=== PATIENT | female | born 1995 | race Caucasian/White ===

== ENCOUNTER 2023-10-26 15:44 | Emergency (ER) | payer MEDICAID, SELFPAY ==
--- NOTE | ~2023-10-26 | US_ITS ---
EXAMINATION: US VENOUS ULTRASOUND WITH DOPPLER LOWER EXTREMITY, LEFT CLINICAL INFORMATION: Swelling and pain COMPARISON: None available. TECHNIQUE: Ultrasound of the deep veins is performed from the hip to the calf with compression sonography and color and pulse Doppler assessment. Spectral analysis with color-flow imaging is performed. FINDINGS: There is normal venous compression and respiratory variation and augmented flow. The visualized common femoral vein, superficial femoral vein, profunda femoral vein, popliteal vein, and the trifurcation region shows no evidence of deep venous thrombosis. There is no significant popliteal fossa cyst. If the patient's symptoms persist, followup ultrasound in 5 days 7 days might be of value to exclude proximal propagation from a non-visualized calf vein. US/US venous duplex LE LT IMPRESSION: No DVT demonstrated in the left lower extremity.
[2023-10-26 16:42] VITALS: BP 152/95; PULSE 103; RESP 20; TEMP 36.6; O2SAT 96; BMI 34.2
--- NOTE | 2023-10-26 16:51 | ECG_ITS ---
Test Reason : LEG SWELLING Blood Pressure : / mmHG Vent. Rate : 095 BPM Atrial Rate : 095 BPM P-R Int : 134 ms QRS Dur : 076 ms QT Int : 348 ms P-R-T Axes : 026 042 028 degrees QTc Int : 437 ms Normal sinus rhythm Normal ECG No previous ECGs available Referred By: Generic ED Physician Electronically Signed By:Connor Guzman
[2023-10-26 18:04] LABS: MANUAL DIFF FLAG NO
[2023-10-26 18:08] LABS: Basophils Absolute Auto 0.1 X10*3/uL (0.0-0.2); Basophils Percent Auto 0.5 % (0-2); Eosinophils Absolute Auto 0.1 X10*3/uL (0.0-0.4); Eosinophils Percent Auto 0.8 % (0-4); Hematocrit 39.3 % (37.0-47.0); Hemoglobin 13.1 g/dl (12.0-16.0); Imm Gran Abs Auto 0.05 X10*3/uL (0.00-0.03); Imm Gran Pct Auto 0.4 % (0.0-0.4); Lymphocytes Absolute Auto 4.8 X10*3/uL (1.2-4.9); Lymphocytes Percent Auto 33.5 % (20-40); Mean Corpuscular HGB Conc 33.3 g/dl (31.0-35.0); Mean Corpuscular Volume 90.1 fL (80.0-98.0); Mean Platelet Volume 8.6 fL (9.4-12.3); Monocytes Absolute Auto 0.7 X10*3/uL (0.1-1.2); Monocytes Percent Auto 4.8 % (2-11); Neutrophils Absolute Auto 8.6 x10*3/uL (2.0-8.3); Platelet Count 412 X10*3/uL (160-400); Red Blood Count 4.36 X10*6/uL (4.20-5.50); Red Cell Distribution Width 12.7 % (11.0-16.0); White Blood Count 14.3 X10*3/uL (4.8-10.8)
[2023-10-26 18:13] LABS: INTERNATIONAL NORM RATIO 0.8 (0.9-1.1); Prothrombin Time 9.7 SEC (11.1-13.3)
[2023-10-26 18:18] LABS: Alanine Aminotransferase 16 U/L (0-31); Albumin Level 3.4 g/dL (3.5-5.0); Alkaline Phosphatase 151 U/L (39-117); Anion Gap 15 (12-20); Aspartate Amino Transferase 19 U/L (5-31); Bilirubin Total 0.3 mg/dL (0.0-1.0); Blood Urea Nitrogen 13 mg/dL (9-16); Calcium 9.1 mg/dL (8.4-10.2); Carbon Dioxide 26 mmol/L (22-29); Chloride 101 mmol/L (96-108); Estimated Glomerular Filt Rate > 60; Glucose Random 201 mg/dL (60-115); Sodium 138 mmol/L (135-145); Total Protein 7.1 g/dL (6.5-8.0)
[2023-10-26 23:36] VITALS: BP 138/86; PULSE 102; RESP 16; TEMP 36.2; O2SAT 94
[2023-10-27 02:39] VITALS: BP 118/72; PULSE 76; RESP 16; TEMP 36.2; O2SAT 98
--- NOTE | 2023-10-27 02:39 | ED_ITS ---
HPI - Extremity Injury (Lower) General Chief Complaint: Extremity Injury, Lower Stated Complaint: L leg swelling/tingling/numbness Time Seen by Provider: 10/27/23 02:36 Source: patient and family (Mother, [place]) Mode of arrival: ambulatory Limitations: no limitations History of Present Illness ED Provider: Dr. Mahendra Garcia HPI Narrative: 28-year-old female history of diabetes mellitus, asthma, left neck DVT who presents emergency department for evaluation of pain and swelling of her left lower extremity. The patient states that the pain came on gradually yesterday around 13:00 hours. She states that the pain is a constant, sharp pain that is worse if she presses on her leg or stands up and tries to walk. The patient does have a history of left neck DVT that occurred after she received the COVID vaccine and was on control pills proximally 3 years prior. She was on anticoagulants for 6 months and has not had been on anticoagulants since then. The patient is currently not on control and denies any long recent trips. She denied fever, chills, chest pain, shortness of breath, nausea, vomiting or diarrhea. She has noted cloudy urine but denied frequency, urgency, dysuria or suprapubic pain Related Data Allergies Allergy/AdvReac Type Severity Reaction Status Date / Time Sulfa (Sulfonamide Allergy Unknown HIVES Verified 10/26/23 16:48 Antibiotics) [SULFA (SULFONAMIDE ANTIBIOTICS)] clindamycin Allergy Hives Verified 10/26/23 16:48 Review of Systems 2 Review of Systems: Yes all other systems are reviewed and are negative [facility] Past Medical History [facility] Narrative: Social history: She denies cigarette use but does use vapes tobacco products. Rarely drinks alcohol. She does use edible marijuana and smokes marijuana daily. Social History Social History Advance Directives: No Advance Directives Information Provided: No Physical Exam 2 Vital Signs: Vital Signs: Last Vital Signs Temp 97.2 F 10/27/23 02:39 Pulse 76 10/27/23 02:39 Resp 16 10/27/23 02:39 BP 118/72 10/27/23 02:39 Pulse Ox 98 10/27/23 02:39 O2 Del Method Room Air 10/27/23 02:39 BMI result Body Mass Index 34.2 Vital signs were no Exam: General: Awake, alert in no distress Head: Normocephalic, atraumatic EENT: PERRL, Lids normal, sclera normal, conjunctiva normal, nose normal , ears normal, throat without erythema or exudates Neck: Supple, no adenopathy Lung: breath sounds symmetric, no wheezing, rales or rhonchi Chest: symmetric movement, nontender Heart: regular rate and rhythm, normal S1, S2 no murmurs or rubs Abdomen: soft, non-tender, nondistended, normal bowel sounds Back: no vertebral tenderness, no CVAT Extremities: Patient does have tenderness palpation of her left leg from the knee down, there is no, the patient's left leg appears to be symmetric in size compared to the right Neuro: Awake, alert, oriented, normal speech, cranial nerves intact, moves all extremities symmetrically Psych: Pleasant, cooperative Medical Decision Making Medical Decision Making MDM Narrative: 28-year-old female history of diabetes mellitus, asthma, left neck DVT who presents emergency department for evaluation of pain and swelling of her left lower extremity which began yesterday at 13:00 hours. Patient has a constant pain which is worse if she pushes her lower extremity or walks. Patient had no other systemic symptoms. Vital signs were normal. Physical examination did reveal tenderness palpation of the left lower extremity from the knee down to the ankle otherwise was unremarkable. Differential diagnosis: ?Includes but is not limited to DVT, peripheral edema, musculoskeletal pain, electrolyte abnormalities, anemia Following evaluation was ordered: CBC, CMP, PT/INR, urinalysis, venous duplex ultrasound left lower extremity Patient was initially treated with the following: Ibuprofen 400 mg orally Course: 01:32 My independent interpretation patient's laboratory evaluation as follows: Elevated WBC 87216. Elevated platelet count 105754. Elevated alk-phos 151. Glucose elevated to 1. Patient's left lower extremity ultrasound duplex Doppler revealed no evidence for DVT. This is reassuring however I did tell the patient and her mother that the study is limited from the knee down to the ankle and the patient will need a repeat duplex ultrasound in 4 days. She was given an outpatient slept to return on Friday10/31/2023 to the outpatient radiology department for repeat study. Patient was advised to take Tylenol and ibuprofen for pain. She was advised to return in the emergency department if her symptoms got worse or she up the new symptoms that were concerning to her. Admission/Observation Consideration of admission/observation: Escalation of care including admission/observation considered Lab Data 10/26/23 17:57 10/26/23 17:57 Labs: Lab Results 10/26/23 Range/Units 17:57 WBC 14.3 H (4.8-10.8) X10*3/uL RBC 4.36 (4.20-5.50) X10*6/uL Hgb 13.1 (12.0-16.0) g/dl Hct 39.3 (37.0-47.0) % MCV 90.1 (80.0-98.0) fL MCH 30.0 (27.0-33.0) pg MCHC 33.3 (31.0-35.0) g/dl RDW 12.7 (11.0-16.0) % Plt Count 412 H (160-400) X10*3/uL MPV 8.6 L (9.4-12.3) fL Immature Gran % (Auto) 0.4 (0.0-0.4) % Neut % (Auto) 60.0 (45-73) % Lymph % (Auto) 33.5 (20-40) % Gooding % (Auto) 4.8 (2-11) % Eos % (Auto) 0.8 (0-4) % Baso % (Auto) 0.5 (0-2) % Lymph # (Auto) 4.8 (1.2-4.9) X10*3/uL Gooding # (Auto) 0.7 (0.1-1.2) X10*3/uL Eos # (Auto) 0.1 (0.0-0.4) X10*3/uL Baso # (Auto) 0.1 (0.0-0.2) X10*3/uL Abs Immat Gran (auto) 0.05 H (0.00-0.03) X10*3/uL Absolute Neuts (auto) 8.6 H (2.0-8.3) x10*3/uL Absolute Nucleated RBC 0.000 (0.0-0.012) X10*3/uL Nucleated RBC % (auto) 0.0 (0.0-0.2) /100WBC PT 9.7 L (11.1-13.3) SEC INR 0.8 L (0.9-1.1) Sodium 138 (135-145) mmol/L Potassium 4.0 (3.3-5.1) mmol/L Chloride 101 (96-108) mmol/L Carbon Dioxide 26 (22-29) mmol/L Anion Gap 15 (12-20) BUN 13 (9-16) mg/dL Creatinine 0.74 (0.5-1.4) mg/dL Estim Creat Clear Calc 121.0 Estimated GFR > 60 Random Glucose 201 H (60-115) mg/dL Calcium 9.1 (8.4-10.2) mg/dL Total Bilirubin 0.3 (0.0-1.0) mg/dL AST 19 (5-31) U/L ALT 16 (0-31) U/L Alkaline Phosphatase 151 H (39-117) U/L Total Protein 7.1 (6.5-8.0) g/dL Albumin 3.4 L (3.5-5.0) g/dL Independent Interpretation I performed an independent interpretation of an: EKG Interpretation: My interpretation patient's 12 EKG done at 18:07 hours is as follows: Normal sinus rhythm rate of 95, normal AK interval, QRS duration QTC interval, no ST segment elevation, no ST segment depression, no significant T-wave abnormalities, no PACs, no PVCs-this is a normal EKG. Radiology Impression Discussion of test interpretation with radiology: I have reviewed the radiologist's reading. Radiologist Impression: US venous duplex LE LT IMPRESSION: No DVT demonstrated in the left lower extremity. Dictated By: Vasile Prado MD Independent Historian Clinical information obtained from an independent historian. History obtained from or confirmed by: Parent Chronic Conditions Patient?s care impacted by: Diabetes Discharge Plan Discharge Clinical Impression: Pain and swelling of left lower extremity Patient Disposition: Home, Self-Care Additional Instructions: Your blood work revealed a slight elevation in your white blood cell count and in your blood sugar otherwise was unremarkable. The Doppler ultrasound of your left lower extremity did not see any blood clot at this time which is reassuring. The ultrasound however can sometimes miss a blood clot from the knee down your ankle therefore you need a repeat ultrasound in 4 days to make sure that there is not a blood clot that is getting bigger that was missed on today's ultrasound. Please bring the outpatient to the main entrance and go to the outpatient registration area. They will register you and then send you to the radiology department for your study. If the study is positive they will send you here to the emergency department for further treatment. In general, if this study is negative they will send you home but it is important that you follow-up with your doctor to get this result. Take ibuprofen 200 mg pills, 2 pills every 6 hours as needed for pain or fever. Take Tylenol (acetaminophen) 500 mg pills, 2 pills every 6 hours as needed for pain or fever. Follow-up with your doctor in 2 days. Please return to the emergency department if your symptoms get worse or if you develop any symptoms that are concerning to you. Print Language: Persian
[2023-10-27] MEDS: Ibuprofen 400 MG TABLET PO (03:05)
[2023-10-27 03:17] VITALS: BP 120/78; PULSE 79; RESP 16; TEMP 36.4; O2SAT 98
== END 2023-10-27 03:18 | disposition home or self-care (01) ==
PROVIDERS: Emergency Provider Emergency Medicine Emergency Medical Services
DX: M79.89 Other specified soft tissue disorders (principal); M79.605 Pain in left leg; E11.9 Type 2 diabetes mellitus without complications; J45.909 Unspecified asthma, uncomplicated; Z86.718 Personal history of other venous thrombosis and embolism
CPT/HCPCS: 36415; 80053; 85025; 85610; 93005; 93971; 99284; 99285

== ENCOUNTER → 2023-10-26 16:51 | Outpatient (BNV) | payer MEDICAID, SELFPAY | PROVIDERS: Emergency Provider Emergency Medicine Emergency Medical Services; Visit Provider Internal Medicine Cardiovascular Disease | DX: M79.605 Pain in left leg (principal); Z86.718 Personal history of other venous thrombosis and embolism | CPT/HCPCS: 93010 ==

== ENCOUNTER 2024-07-02 11:42 | Emergency (ER) | payer OTHER, SELFPAY ==
--- NOTE | ~2024-07-02 | XR_ITS ---
EXAMINATION: XR CHEST CLINICAL INFORMATION: uri sx COMPARISON: 08/27/2019. TECHNIQUE: Frontal view of the chest was obtained. FINDINGS: No significant abnormality is noted involving the heart, lungs, mediastinum, bony thorax or soft tissues. XR/XR chest 1V IMPRESSION: Unremarkable examination. Electronically signed by: Xiang Johnson MD 07/02/2024 01:32 PM [facility]
--- NOTE | 2024-07-02 11:57 | ECG_ITS ---
Test Reason : DIAPHORESIS/N/V Blood Pressure : */* mmHG Vent. Rate : 107 BPM Atrial Rate : 107 BPM P-R Int : 142 ms QRS Dur : 76 ms QT Int : 348 ms P-R-T Axes : 22 36 25 degrees QTcB Int : 464 ms Sinus tachycardia Otherwise normal ECG When compared with ECG of 26-Oct-2023 18:07, No significant change was found Referred By: Denice Sen Electronically Signed By: YESSI WALLS
--- NOTE | 2024-07-02 12:05 | ED.GENADULT ---
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 Patient reports diffuse abdominal pain/discomfort and recent URI symptoms. Also reports recent BP medication change last week, addition of amlodipine. Denies fever, cough, diarrhea, dysuria/hematuria Related Data Previous Rx's ?Medication ?Instructions ?Recorded insulin aspart U-100 100 unit/mL 1 sliding scale dose subcut 07/02/24 (3 mL) subcutaneous pen (Novolog USEASDIRECTD #15 mL FlexPen U-100 Insulin aspart) ondansetron 4 mg disintegrating 4 mg PO Q8H PRN nausea and 07/02/24 tablet vomiting #10 tabs Allergies Allergy/AdvReac Type Severity Reaction Status Date / Time Sulfa (Sulfonamide Allergy Unknown HIVES Verified 07/02/24 12:20 Antibiotics) [SULFA (SULFONAMIDE ANTIBIOTICS)] clindamycin Allergy Hives Verified 07/02/24 12:20 Review of Systems Review of Systems: Yes all other systems are reviewed and are negative Constitutional: Constitutional: Reports as per [facility] Past Medical History Attestation statement: The following information was validated with the patient. Source: old records reviewed Social History Social History Smoked in Last 30 Days: No Use of substances other than those prescribed or required for medical reasons: No Substance Use Type: Marijuana Advance Directives: No Advance Directives Information Provided: Yes Do you have a plan to hurt others: No Plan Patient : No Physical Exam ED Vital Signs: Vital Signs - 24 hr 07/02/24 12:18 07/02/24 17:41 07/02/24 19:03 Temperature 96.9 F 97.1 F 97.1 F Pulse Rate 112 H 96 96 Respiratory Rate 17 17 17 Blood Pressure 169/101 H 159/99 H 159/99 H Pulse Oximetry 98 98 98 Oxygen Delivery Method Room Air Room Air Room Air BMI result Body Mass Index 39.1 Const Other: Diaphoretic General: cooperative and no acute distress Orientation/consciousness: patient oriented x3 Limitations: no limitations HENMT Head: Yes normal to inspection and Yes atraumatic Ears: hearing grossly normal bilaterally General nose exam: Normal external nose present Face and sinus: Yes normal facial exam Eyes General: appearance normal, both eyes and all related structures EOM: EOMs intact bilaterally Neck Neck: Yes normal visual inspection and Yes no meningeal signs Resp Effort & Inspection: normal respiratory effort and no respiratory distress Auscultation: clear to auscultation bilaterally Cardio Rate: regular rate Heart sounds: S1 normal heart sound present and S2 normal heart sound present GI Inspection: Yes normal to inspection Palpation (GI): Soft to palpation, nontender, no guarding and not rigid Skin Rashes: no rashes Wounds: no wounds Neuro General: patient oriented x3, tone normal, moves all extremities, no meningeal signs, no focal motor deficits and CN's II-XI intact bilaterally Cranial nerves: Yes CN's II-XII intact bilaterally Extrem General: Yes normal to inspection Course Course Course Narrative: -1428--no leukocytosis. VBG with a pH of 7.44 -glucose 241, no anion gap. Lactic acidosis 3.8 > likely from nausea/vomiting/decreased p.o. intake. Continued low suspicion for severe sepsis -troponin negative. Viral studies negative XR chest 1V IMPRESSION: Unremarkable examination. -repeat glucose 73 after IVF only > patient given juice -175-- POC's have remained stable. Repeat lactic acid normalized. Repeat troponin with slight rise will obtain additional repeat to rule out ACS. -patient has been tolerating p.o. in the ED without difficulty -1850--3rd troponin without rise, mi unlikely. Patient is safe for discharge at this time > requesting prescription for NovoLog as she is currently out Results discussed with patient including worrisome signs and symptoms and strict return precautions, and when to return to the emergency department. They verbalized understanding and feel safe for discharge at this time. Medications Administered Discontinued Medications Generic Name Dose Route Start Last Admin Trade Name Freq PRN Reason Stop Dose Admin Lactated Ringer's 1,000 mls @ 999 mls/hr 07/02/24 12:00 07/02/24 15:03 Lr IV 07/02/24 13:00 Infused .Q1H1M RYAN Infusion Lactated Ringer's 1,000 mls @ 999 mls/hr 07/02/24 12:45 07/02/24 17:45 Lr IV 07/02/24 13:45 Infused .Q1H1M RYAN Infusion Metoclopramide HCl 10 mg 07/02/24 14:46 07/02/24 15:19 Metoclopramide Hcl 10 Mg/2 Ml Vial IVPUSH 07/02/24 14:47 10 mg ONCE ONE Administration Medical Decision Making Medical Decision Making MDM Narrative: 28-year-old female with a past medical history of diabetes currently on Lantus and NovoLog, ovarian CA not currently on chemo or radiation, 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 On exam tachycardic, hypertensive, lungs CTA, abdomen soft/nontender. Concern for hyperglycemia/DKA vs metabolic abnormalities vs ACS vs hypertensive urgency vs emergency. Lower suspicion for ICH, PE/DVT or severe sepsis at this time Plan: EKG, labs, UA, CXR, viral testing, IVF, reassess Please refer to course for remaining clinical decision making, interpretation of labs/imaging results, and discussions with consultants and/or family members. Differential Diagnosis Differential Diagnoses: The differential diagnosis associated with the presentation includes As above Admission/Observation Consideration of admission/observation: Escalation of care including admission/observation considered Lab Data [facility] Lab Attestation statement: I reviewed the patient's lab results. 07/02/24 12:51 07/02/24 12:51 Labs: Lab Results 07/02/24 07/02/24 07/02/24 Range/Units 12:16 12:51 12:55 WBC 10.8 (4.8-10.8) X10*3/uL RBC 4.39 (4.20-5.50) X10*6/uL Hgb 13.4 (12.0-16.0) g/dl Hct 39.3 (37.0-47.0) % MCV 89.5 (80.0-98.0) fL MCH 30.5 (27.0-33.0) pg MCHC 34.1 (31.0-35.0) g/dl RDW 12.1 (11.0-16.0) % Plt Count 428 H (160-400) X10*3/uL MPV 8.4 L (9.4-12.3) fL Immature Gran % (Auto) 0.3 (0.0-0.4) % Neut % (Auto) 69.8 (45-73) % Lymph % (Auto) 24.6 (20-40) % [place] % (Auto) 4.5 (2-11) % Eos % (Auto) 0.2 (0-4) % Baso % (Auto) 0.6 (0-2) % Lymph # (Auto) 2.7 (1.2-4.9) X10*3/uL [place] # (Auto) 0.5 (0.1-1.2) X10*3/uL Eos # (Auto) 0.0 (0.0-0.4) X10*3/uL Baso # (Auto) 0.1 (0.0-0.2) X10*3/uL Abs Immat Gran (auto) 0.03 (0.00-0.03) X10*3/uL Absolute Neuts (auto) 7.6 (2.0-8.3) x10*3/uL Absolute Nucleated RBC 0.000 (0.0-0.012) X10*3/uL Nucleated RBC % (auto) 0.0 (0.0-0.2) /100WBC VBG pH 7.44 H (7.32-7.43) VBG pCO2 38 mmHg VBG pO2 61 mmHg VBG HCO3 26 (22-26) mmol/L VBG O2 Saturation 89.0 % VBG Base Excess 2.6 mmol/L Sodium 140 (135-145) mmol/L Potassium 4.1 (3.3-5.1) mmol/L Chloride 105 (96-108) mmol/L Carbon Dioxide 23 (22-29) mmol/L Anion Gap 16 (12-20) BUN 18 H (9-16) mg/dL Creatinine 0.70 (0.5-1.4) mg/dL Estim Creat Clear Calc 122.2 Estimated GFR > 60 POC Glucose 318 H (60-115) mg/dL Random Glucose 241 H (60-115) mg/dL Lactic Acid 3.8 H* (0.5-2.0) mmol/L Lactic Acid F/U @ 2Hr (0.5-2.0) mmol/L Calcium 9.4 (8.4-10.2) mg/dL Magnesium 2.0 (1.6-2.6) mg/dL Total Bilirubin 0.2 (0.0-1.0) mg/dL Direct Bilirubin < 0.2 (0.0-0.5) mg/dL AST 21 (5-31) U/L ALT 15 (0-31) U/L Alkaline Phosphatase 153 H (39-117) U/L Troponin I High Sens < 2.7 (<3.5-17.0) ng/L Total Protein 6.8 (6.5-8.0) g/dL Albumin 3.0 L (3.5-5.0) g/dL Lipase 14 (8-78) U/L Beta-Hydroxybutyrate 0.13 (0.02-0.27) mmol/L Beta HCG, Quant < 2 mIU/mL Urine Color Urine Appearance Urine pH (5.0-9.0) Ur Specific [place] (1.005-1.025) Urine Protein (Neg-Trace) mg/dL Urine Glucose (UA) (Negative) mg/dL Urine Ketones (Negative) mg/dL Urine Blood (Negative) Urine Nitrite (Negative) Ur Leukocyte Esterase (Negative) Urine RBC (0-2) /HPF Urine WBC (0-5) /HPF Ur Squamous Epith Cells (0-2) /HPF Urine Bacteria (None Seen) Hyaline Casts (0-2) /LPF Influenza Type A (PCR) NEGATIVE (Negative) Influenza Type B (PCR) NEGATIVE (Negative) RSV RNA Qual (PCR) NEGATIVE (Negative) SARS-CoV-2 RNA (RT-PCR) NEGATIVE (Negative) 07/02/24 07/02/24 07/02/24 Range/Units 14:05 14:19 14:21 WBC (4.8-10.8) X10*3/uL RBC (4.20-5.50) X10*6/uL Hgb (12.0-16.0) g/dl Hct (37.0-47.0) % MCV (80.0-98.0) fL MCH (27.0-33.0) pg MCHC (31.0-35.0) g/dl RDW (11.0-16.0) % Plt Count (160-400) X10*3/uL MPV (9.4-12.3) fL Immature Gran % (Auto) (0.0-0.4) % Neut % (Auto) (45-73) % Lymph % (Auto) (20-40) % [place] % (Auto) (2-11) % Eos % (Auto) (0-4) % Baso % (Auto) (0-2) % Lymph # (Auto) (1.2-4.9) X10*3/uL [place] # (Auto) (0.1-1.2) X10*3/uL Eos # (Auto) (0.0-0.4) X10*3/uL Baso # (Auto) (0.0-0.2) X10*3/uL Abs Immat Gran (auto) (0.00-0.03) X10*3/uL Absolute Neuts (auto) (2.0-8.3) x10*3/uL Absolute Nucleated RBC (0.0-0.012) X10*3/uL Nucleated RBC % (auto) (0.0-0.2) /100WBC VBG pH (7.32-7.43) VBG pCO2 mmHg VBG pO2 mmHg VBG HCO3 (22-26) mmol/L VBG O2 Saturation % VBG Base Excess mmol/L Sodium (135-145) mmol/L Potassium (3.3-5.1) mmol/L Chloride (96-108) mmol/L Carbon Dioxide (22-29) mmol/L Anion Gap (12-20) BUN (9-16) mg/dL Creatinine (0.5-1.4) mg/dL Estim Creat Clear Calc Estimated GFR POC Glucose 78 73 (60-115) mg/dL Random Glucose (60-115) mg/dL Lactic Acid (0.5-2.0) mmol/L Lactic Acid F/U @ 2Hr (0.5-2.0) mmol/L Calcium (8.4-10.2) mg/dL Magnesium (1.6-2.6) mg/dL Total Bilirubin (0.0-1.0) mg/dL Direct Bilirubin (0.0-0.5) mg/dL AST (5-31) U/L ALT (0-31) U/L Alkaline Phosphatase (39-117) U/L Troponin I High Sens (<3.5-17.0) ng/L Total Protein (6.5-8.0) g/dL Albumin (3.5-5.0) g/dL Lipase (8-78) U/L Beta-Hydroxybutyrate (0.02-0.27) mmol/L Beta HCG, Quant mIU/mL Urine Color Yellow Urine Appearance Clear Urine pH 6.0 (5.0-9.0) Ur Specific [place] 1.025 (1.005-1.025) Urine Protein >=1000 (4+) H (Neg-Trace) mg/dL Urine Glucose (UA) >=1000 H (Negative) mg/dL Urine Ketones Negative (Negative) mg/dL Urine Blood Small (1+) H (Negative) Urine Nitrite Negative (Negative) Ur Leukocyte Esterase Negative (Negative) Urine RBC 3-5 H (0-2) /HPF Urine WBC 0-5 (0-5) /HPF Ur Squamous Epith Cells 0-2 (0-2) /HPF Urine Bacteria None Seen (None Seen) Hyaline Casts 0-2 (0-2) /LPF Influenza Type A (PCR) (Negative) Influenza Type B (PCR) (Negative) RSV RNA Qual (PCR) (Negative) SARS-CoV-2 RNA (RT-PCR) (Negative) 07/02/24 07/02/24 07/02/24 Range/Units 15:21 15:27 17:38 WBC (4.8-10.8) X10*3/uL RBC (4.20-5.50) X10*6/uL Hgb (12.0-16.0) g/dl Hct (37.0-47.0) % MCV (80.0-98.0) fL MCH (27.0-33.0) pg MCHC (31.0-35.0) g/dl RDW (11.0-16.0) % Plt Count (160-400) X10*3/uL MPV (9.4-12.3) fL Immature Gran % (Auto) (0.0-0.4) % Neut % (Auto) (45-73) % Lymph % (Auto) (20-40) % [place] % (Auto) (2-11) % Eos % (Auto) (0-4) % Baso % (Auto) (0-2) % Lymph # (Auto) (1.2-4.9) X10*3/uL [place] # (Auto) (0.1-1.2) X10*3/uL Eos # (Auto) (0.0-0.4) X10*3/uL Baso # (Auto) (0.0-0.2) X10*3/uL Abs Immat Gran (auto) (0.00-0.03) X10*3/uL Absolute Neuts (auto) (2.0-8.3) x10*3/uL Absolute Nucleated RBC (0.0-0.012) X10*3/uL Nucleated RBC % (auto) (0.0-0.2) /100WBC VBG pH (7.32-7.43) VBG pCO2 mmHg VBG pO2 mmHg VBG HCO3 (22-26) mmol/L VBG O2 Saturation % VBG Base Excess mmol/L Sodium (135-145) mmol/L Potassium (3.3-5.1) mmol/L Chloride (96-108) mmol/L Carbon Dioxide (22-29) mmol/L Anion Gap (12-20) BUN (9-16) mg/dL Creatinine (0.5-1.4) mg/dL Estim Creat Clear Calc Estimated GFR POC Glucose 87 192 H (60-115) mg/dL Random Glucose (60-115) mg/dL Lactic Acid Cancelled (0.5-2.0) mmol/L Lactic Acid F/U @ 2Hr 1.6 (0.5-2.0) mmol/L Calcium (8.4-10.2) mg/dL Magnesium (1.6-2.6) mg/dL Total Bilirubin (0.0-1.0) mg/dL Direct Bilirubin (0.0-0.5) mg/dL AST (5-31) U/L ALT (0-31) U/L Alkaline Phosphatase (39-117) U/L Troponin I High Sens 4.1 D (<3.5-17.0) ng/L Total Protein (6.5-8.0) g/dL Albumin (3.5-5.0) g/dL Lipase (8-78) U/L Beta-Hydroxybutyrate (0.02-0.27) mmol/L Beta HCG, Quant mIU/mL Urine Color Urine Appearance Urine pH (5.0-9.0) Ur Specific [place] (1.005-1.025) Urine Protein (Neg-Trace) mg/dL Urine Glucose (UA) (Negative) mg/dL Urine Ketones (Negative) mg/dL Urine Blood (Negative) Urine Nitrite (Negative) Ur Leukocyte Esterase (Negative) Urine RBC (0-2) /HPF Urine WBC (0-5) /HPF Ur Squamous Epith Cells (0-2) /HPF Urine Bacteria (None Seen) Hyaline Casts (0-2) /LPF Influenza Type A (PCR) (Negative) Influenza Type B (PCR) (Negative) RSV RNA Qual (PCR) (Negative) SARS-CoV-2 RNA (RT-PCR) (Negative) 07/02/24 Range/Units 17:56 WBC (4.8-10.8) X10*3/uL RBC (4.20-5.50) X10*6/uL Hgb (12.0-16.0) g/dl Hct (37.0-47.0) % MCV (80.0-98.0) fL MCH (27.0-33.0) pg MCHC (31.0-35.0) g/dl RDW (11.0-16.0) % Plt Count (160-400) X10*3/uL MPV (9.4-12.3) fL Immature Gran % (Auto) (0.0-0.4) % Neut % (Auto) (45-73) % Lymph % (Auto) (20-40) % [place] % (Auto) (2-11) % Eos % (Auto) (0-4) % Baso % (Auto) (0-2) % Lymph # (Auto) (1.2-4.9) X10*3/uL [place] # (Auto) (0.1-1.2) X10*3/uL Eos # (Auto) (0.0-0.4) X10*3/uL Baso # (Auto) (0.0-0.2) X10*3/uL Abs Immat Gran (auto) (0.00-0.03) X10*3/uL Absolute Neuts (auto) (2.0-8.3) x10*3/uL Absolute Nucleated RBC (0.0-0.012) X10*3/uL Nucleated RBC % (auto) (0.0-0.2) /100WBC VBG pH (7.32-7.43) VBG pCO2 mmHg VBG pO2 mmHg VBG HCO3 (22-26) mmol/L VBG O2 Saturation % VBG Base Excess mmol/L Sodium (135-145) mmol/L Potassium (3.3-5.1) mmol/L Chloride (96-108) mmol/L Carbon Dioxide (22-29) mmol/L Anion Gap (12-20) BUN (9-16) mg/dL Creatinine (0.5-1.4) mg/dL Estim Creat Clear Calc Estimated GFR POC Glucose (60-115) mg/dL Random Glucose (60-115) mg/dL Lactic Acid (0.5-2.0) mmol/L Lactic Acid F/U @ 2Hr (0.5-2.0) mmol/L Calcium (8.4-10.2) mg/dL Magnesium (1.6-2.6) mg/dL Total Bilirubin (0.0-1.0) mg/dL Direct Bilirubin (0.0-0.5) mg/dL AST (5-31) U/L ALT (0-31) U/L Alkaline Phosphatase (39-117) U/L Troponin I High Sens 4.3 (<3.5-17.0) ng/L Total Protein (6.5-8.0) g/dL Albumin (3.5-5.0) g/dL Lipase (8-78) U/L Beta-Hydroxybutyrate (0.02-0.27) mmol/L Beta HCG, Quant mIU/mL Urine Color Urine Appearance Urine pH (5.0-9.0) Ur Specific [place] (1.005-1.025) Urine Protein (Neg-Trace) mg/dL Urine Glucose (UA) (Negative) mg/dL Urine Ketones (Negative) mg/dL Urine Blood (Negative) Urine Nitrite (Negative) Ur Leukocyte Esterase (Negative) Urine RBC (0-2) /HPF Urine WBC (0-5) /HPF Ur Squamous Epith Cells (0-2) /HPF Urine Bacteria (None Seen) Hyaline Casts (0-2) /LPF Influenza Type A (PCR) (Negative) Influenza Type B (PCR) (Negative) RSV RNA Qual (PCR) (Negative) SARS-CoV-2 RNA (RT-PCR) (Negative) Independent Interpretation I performed an independent interpretation of an: EKG and Plain X-Ray Radiology Impression Discussion of test interpretation with radiology: I have reviewed the radiologist's reading. Independent Historian Clinical information obtained from an independent historian. History obtained from or confirmed by: EMS External Record Review External record reviewed: Inpatient record, Office record, Outpatient record, Prior outpatient labs, Prior outpatient radiology, Primary care record and Outside ED record Tests considered The following testing was considered but not selected: As above Prescription Management I considered prescription management with: Other Chronic Conditions Patient?s care impacted by: Diabetes, Cancer and Other Social Determinants Patient?s care significantly limited by Social Determinants of Health including: Other Social Determinant of Health Discharge Plan Discharge Clinical Impression: Hyperglycemia, Chest pain, Nausea & vomiting Patient Disposition: Home, Self-Care Instructions: Chest Pain (DC), Acute Nausea and Vomiting (ED), Diabetic Hyperglycemia (ED) Additional Instructions: Your sugar was very elevated on your arrival today, it has since been normal Please continue to take your diabetic medications as prescribed and check her sugar regularly Zofran as for nausea, take as needed for nausea and vomiting Your other blood work was otherwise reassuring Please have close follow-up with your primary care doctor If you have persistent nausea/vomiting, abdominal pain, chest pain or shortness breath return to the emergency department Prescriptions: New insulin aspart U-100 [Novolog FlexPen U-100 Insulin] 100 unit/mL (3 mL) insulin pen 1 sliding scale dose subcut USEASDIRECTD Qty: 15 0RF ondansetron 4 mg tablet,disintegrating 4 mg PO Q8H PRN (Reason: nausea and vomiting) Qty: 10 0RF Referrals: Rebecca Encinas MD [Primary Care Provider] - 5 days Interventions: ED Discharge Assessment Last Done: 07/02/24 19:03 Discharge Date/Time: 07/02/24 19:29 Print Language: Korean
[2024-07-02 12:18] VITALS: BP 169/101; BP 210/131; PULSE 112; RESP 17; TEMP 36.1; O2SAT 98; BMI 39.1
[2024-07-02 12:20] LABS: Glucose, Whole Blood 318 mg/dL (60-115)
[2024-07-02] MEDS: Lactated Ringers 1,000 ML 999 ML IV ×2 (12:25→15:04)
[2024-07-02 12:55] LABS: MANUAL DIFF FLAG NO
[2024-07-02 12:58] LABS: Basophils Absolute Auto 0.1 X10*3/uL (0.0-0.2); Basophils Percent Auto 0.6 % (0-2); Eosinophils Percent Auto 0.2 % (0-4); Hematocrit 39.3 % (37.0-47.0); Hemoglobin 13.4 g/dl (12.0-16.0); Imm Gran Abs Auto 0.03 X10*3/uL (0.00-0.03); Imm Gran Pct Auto 0.3 % (0.0-0.4); Lymphocytes Absolute Auto 2.7 X10*3/uL (1.2-4.9); Lymphocytes Percent Auto 24.6 % (20-40); Mean Corpuscular HGB Conc 34.1 g/dl (31.0-35.0); Mean Corpuscular Hemoglobin 30.5 pg (27.0-33.0); Mean Corpuscular Volume 89.5 fL (80.0-98.0); Mean Platelet Volume 8.4 fL (9.4-12.3); Monocytes Absolute Auto 0.5 X10*3/uL (0.1-1.2); Monocytes Percent Auto 4.5 % (2-11); Neutrophils Absolute Auto 7.6 x10*3/uL (2.0-8.3); Neutrophils Percent Auto 69.8 % (45-73); Platelet Count 428 X10*3/uL (160-400); Red Blood Count 4.39 X10*6/uL (4.20-5.50); Red Cell Distribution Width 12.1 % (11.0-16.0); White Blood Count 10.8 X10*3/uL (4.8-10.8)
[2024-07-02 13:00] LABS: VBG Base Excess 2.6 mmol/L; VBG HCO3 26 mmol/L (22-26); VBG pCO2 38 mmHg; VBG pH 7.44 (7.32-7.43); VBG pO2 61 mmHg
[2024-07-02 13:06] LABS: Venous Blood Gas Refer to POC result
[2024-07-02 13:21] LABS: Lactic Acid 3.8 mmol/L (0.5-2.0)
[2024-07-02 13:22] LABS: Alanine Aminotransferase 15 U/L (0-31); Alkaline Phosphatase 153 U/L (39-117); Anion Gap 16 (12-20); Aspartate Amino Transferase 21 U/L (5-31); Bilirubin Direct < 0.2 mg/dL (0.0-0.5); Bilirubin Total 0.2 mg/dL (0.0-1.0); Blood Urea Nitrogen 18 mg/dL (9-16); Calcium 9.4 mg/dL (8.4-10.2); Carbon Dioxide 23 mmol/L (22-29); Chloride 105 mmol/L (96-108); Creatinine Clr Calc Pharmacy 122.2; Estimated Glomerular Filt Rate > 60; Glucose Random 241 mg/dL (60-115); HCG Quantitative < 2 mIU/mL; Lipase 14 U/L (8-78); Potassium 4.1 mmol/L (3.3-5.1); Sodium 140 mmol/L (135-145); Total Protein 6.8 g/dL (6.5-8.0)
[2024-07-02 13:25] LABS: Troponin-I High Sensitivity < 2.7 ng/L (<3.5-17.0)
[2024-07-02 13:38] LABS: Influenza A PCR NEGATIVE (Negative); Influenza B PCR NEGATIVE (Negative); Resp Syncy Virus RNA Qual PCR NEGATIVE (Negative); SARS COV2 PCR INHOUSE NEGATIVE (Negative)
[2024-07-02 14:20] LABS: Appearance Urine Clear; Color Urine Yellow; Glucose Urine UA >=1000 mg/dL (Negative); Leukocyte Esterase Urine Negative (Negative); Nitrite Urine Negative (Negative); Specific Gravity - Urine 1.025 (1.005-1.025); UMIC TRIGGER UACC YES; Urine Blood Small (1+) (Negative); Urine Ketones Negative (Negative); Urine Protein >=1000 (4+) mg/dL (Neg-Trace)
[2024-07-02 14:23] LABS: Beta-Hydroxybutyrate 0.13 mmol/L (0.02-0.27)
[2024-07-02 14:25] LABS: Glucose, Whole Blood 73 mg/dL (60-115)
[2024-07-02 14:25] LABS: Glucose, Whole Blood 78 mg/dL (60-115)
--- NOTE | 2024-07-02 14:27 | PC.NURSE ---
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
[2024-07-02 14:35] LABS: Bacteria Urine None Seen (None Seen); Hyaline Casts Urine 0-2 /LPF (0-2); Squamous Epithelial Cell Urine 0-2 /HPF (0-2); WBC Urine 0-5 /HPF (0-5)
[2024-07-02 14:54] LABS: Reflex Lactate? Lactic Acid Added
[2024-07-02] MEDS: Metoclopramide HCl 10 MG/2 ML VIAL IVPUSH (15:19)
[2024-07-02 15:26] LABS: Glucose, Whole Blood 87 mg/dL (60-115)
--- NOTE | 2024-07-02 16:31 | PC.NURSE ---
Pt's BG 83; pt tolerating PO fluids; reports mild nausea after Reglan; awaiting repeat lab results and 2nd ltr LR
[2024-07-02 17:04] LABS: Troponin-I High Sensitivity 4.1 ng/L (<3.5-17.0)
[2024-07-02 17:22] LABS: ~Lactic Acid-LAB USE ONLY 1.6 mmol/L (0.5-2.0)
[2024-07-02 17:41] VITALS: BP 159/99; PULSE 96; RESP 17; TEMP 36.2; O2SAT 98
--- NOTE | 2024-07-02 17:41 | PC.NURSE ---
Repeat BG 192 at this time; repeat lactic 1.6; IVF's completed; pt ambulatory to BR; reports no pain and relief of nausea with tx
[2024-07-02 17:43] LABS: Glucose, Whole Blood 192 mg/dL (60-115)
[2024-07-02 18:22] LABS: Troponin-I High Sensitivity 4.3 ng/L (<3.5-17.0)
[2024-07-02 19:03] VITALS: BP 159/99; PULSE 96; RESP 17; TEMP 36.2; O2SAT 98
--- NOTE | 2024-07-02 19:29 | PC.NURSE ---
pt dc by previous rn
== END 2024-07-02 19:29 | disposition home or self-care (01) ==
PROVIDERS: Physician Assistant; Emergency Provider Emergency Medicine; PCP Internal Medicine
DX: E11.65 Type 2 diabetes mellitus with hyperglycemia (principal); R07.89 Other chest pain; R11.2 Nausea with vomiting, unspecified; Z03.818 Encounter for observation for suspected exposure to other biological agents ruled out; Z79.899 Other long term (current) drug therapy
CPT/HCPCS: 0241U; 36415; 71045; 80048; 80076; 81001; 82010; 82803; 82947; 83605; 83690; 83735; 84484; 84702; 85025; 93005; 96361; 96374; 96375; 99285; J2765; J7120

== ENCOUNTER → 2024-07-02 11:57 | Outpatient (BNV) | payer OTHER, SELFPAY | PROVIDERS: Emergency Provider Emergency Medicine; PCP Internal Medicine; Visit Provider Radiology Diagnostic Radiology | DX: J06.9 Acute upper respiratory infection, unspecified (principal) | CPT/HCPCS: 71045 ==

== ENCOUNTER → 2024-07-02 11:57 | Outpatient (BNV) | payer OTHER, SELFPAY | PROVIDERS: Emergency Provider Emergency Medicine; PCP Internal Medicine; Visit Provider Internal Medicine | DX: R00.0 Tachycardia, unspecified (principal) | CPT/HCPCS: 93010 ==

== ENCOUNTER 2024-09-22 04:25 | Inpatient (IN) | payer OTHER, SELFPAY ==
[2024-09-22] VITALS (11 sets, daily range): BP systolic 140–201; BP diastolic 82–124; PULSE 85–100; RESP 16–24; TEMP 36.5–36.9; O2SAT 90–100; BMI 39.8; BMI 39.1
--- NOTE | ~2024-09-22 | CT_ITS ---
EXAMINATION: CT HEAD WITHOUT CONTRAST CLINICAL INFORMATION: headache, hypertension COMPARISON: None available. TECHNIQUE: Contiguous axial imaging was performed from the skull base to vertex without intravenous administration of contrast. This CT examination was performed using dose optimization techniques as appropriate, variously including the following: *Automated exposure control *Adjustment of mA and/or kV according to patient size (this includes techniques or standardized protocols for targeted exams where dose is matched to indication/reason for exam; i.e. extremities or head) *Use of iterative reconstruction technique DLP: 669 mGy-cm FINDINGS: No acute intracranial hemorrhage, mass effect, midline shift, hydrocephalus or herniation. Ibrahim-white matter differentiation is normal. Sellar/suprasellar region demonstrated no gross masses. Craniocervical junction is intact and normal. Calcified plaques in the cavernous supracavernous segments both ICAs and V4 segment left vertebral artery. The bony calvarium is intact. 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 No air-fluid levels in the paranasal sinuses. Tympanic cavities and mastoid cells are aerated. Accessory parotid gland, right-sided. CT/CT head/brain wo IV con IMPRESSION: No acute brain abnormality by CT Electronically signed by: Herson Grimes MD 09/22/2024 09:28 AM EDT
--- NOTE | ~2024-09-22 | US_ITS ---
EXAMINATION: US TRIPLEX LOWER EXTREMITY, BILATERAL CLINICAL INFORMATION: Bilateral lower extremity edema COMPARISON: 10/26/2023. TECHNIQUE: Color-flow triplex imaging with spectral analysis and compression Doppler were performed on the bilateral lower extremities. FINDINGS: Respiratory variation, normal compression and augmented flow are noted throughout the bilateral lower extremities. The visualized common femoral vein, superficial femoral vein, profunda femoral vein, popliteal vein and midcalf peroneal and posterior tibial venous segments show no evidence of deep venous thrombosis bilaterally. There is no Nieto's cyst. There is diffuse bilateral calf edema. US/US venous duplex LE BI IMPRESSION: No evidence of deep venous thrombosis involving the bilateral lower extremities. Electronically signed by: Xiang Johnson MD 09/22/2024 09:11 AM EDT
--- NOTE | ~2024-09-22 | XR_ITS ---
CLINICAL HISTORY: sob 1 view chest Comparison: CR/SR - XR CHEST 1V - 07/02/24 13:19 EST Findings: Cardiac and mediastinal contours are normal. Mild interstitial prominence with scattered peribronchial thickening. No focal consolidation. No effusion. No pneumothorax. No acute osseous finding. Impression: Mild interstitial prominence with scattered peribronchial thickening. No focal consolidation. This document has been electronically signed by: Mauro Chapa MD on 09/22/2024 06:24:03
--- NOTE | 2024-09-22 04:58 | ECG_ITS ---
Test Reason : high bp Blood Pressure : */* mmHG Vent. Rate : 96 BPM Atrial Rate : 96 BPM P-R Int : 140 ms QRS Dur : 80 ms QT Int : 410 ms P-R-T Axes : 35 72 63 degrees QTcB Int : 517 ms Normal sinus rhythm Normal ECG When compared with ECG of 02-Jul-2024 13:02, Non-specific change in ST segment in Anterior leads QT has lengthened Referred By: Generic ED Physician Electronically Signed By: YESSI WALLS
[2024-09-22 05:08] LABS: Basophils Absolute Auto 0.1 X10*3/uL (0.0-0.2); Basophils Percent Auto 0.7 % (0-2); Eosinophils Absolute Auto 0.2 X10*3/uL (0.0-0.4); Eosinophils Percent Auto 2.4 % (0-4); Hematocrit 36.6 % (37.0-47.0); Imm Gran Abs Auto 0.03 X10*3/uL (0.00-0.03); Imm Gran Pct Auto 0.3 % (0.0-0.4); Lymphocytes Absolute Auto 2.4 X10*3/uL (1.2-4.9); Lymphocytes Percent Auto 25.2 % (20-40); MANUAL DIFF FLAG NO; Mean Corpuscular HGB Conc 32.8 g/dl (31.0-35.0); Mean Corpuscular Volume 91.5 fL (80.0-98.0); Mean Platelet Volume 8.2 fL (9.4-12.3); Monocytes Absolute Auto 0.6 X10*3/uL (0.1-1.2); Monocytes Percent Auto 6.7 % (2-11); Neutrophils Absolute Auto 6.1 x10*3/uL (2.0-8.3); Neutrophils Percent Auto 64.7 % (45-73); Platelet Count 461 X10*3/uL (160-400); Red Cell Distribution Width 12.4 % (11.0-16.0); White Blood Count 9.5 X10*3/uL (4.8-10.8)
[2024-09-22 05:21] LABS: Anion Gap 15 (12-20); Blood Urea Nitrogen 11 mg/dL (9-16); Calcium 8.5 mg/dL (8.4-10.2); Carbon Dioxide 19 mmol/L (22-29); Chloride 107 mmol/L (96-108); Creatinine Clr Calc Pharmacy 127.1; Estimated Glomerular Filt Rate > 60; Glucose Random 202 mg/dL (60-115); Potassium 3.4 mmol/L (3.3-5.1); Sodium 138 mmol/L (135-145)
[2024-09-22 05:41] LABS: Glucose, Whole Blood 192 mg/dL (60-115)
[2024-09-22 05:45] LABS: Beta-Hydroxybutyrate 0.85 mmol/L (0.02-0.27)
[2024-09-22 05:48] LABS: HCG Quantitative < 2 mIU/mL
[2024-09-22 06:19] LABS: Influenza A PCR NEGATIVE (Negative); Influenza B PCR NEGATIVE (Negative); Resp Syncy Virus RNA Qual PCR NEGATIVE (Negative); SARS COV2 PCR INHOUSE NEGATIVE (Negative)
--- NOTE | 2024-09-22 06:43 | ED_ITS ---
HPI - General Adult General Chief complaint: General Medical Stated complaint: HBP Time Seen by Provider: 09/22/24 06:43 History of Present Illness ED Provider: Junior WEBB narrative: The patient is a 29 female who was a type 1 diabetic. She has had type 1 diabetes for approximately 20 years. She is on amlodipine for blood pressure as well as Lantus and NovoLog for her diabetes. She says that she started to feel unwell this morning at around 330. She felt that her legs were swollen and she had a heaviness in her chest and she felt short of breath. At the home her blood pressure was 214/140. She felt somewhat short of breath. She came to the emergency room because of the symptoms. No definite fever. The patient has been on antibiotics for 1 week because of tooth pain in her right upper last molar. She has been on amoxicillin and doxycycline. Related Data Home Medications ?Medication ?Instructions ?Recorded ?Confirmed albuterol sulfate 90 mcg/actuation 2 puff inhalation QID PRN wheezing 09/22/24 09/22/24 aerosol inhaler (Ventolin HFA) amlodipine 5 mg tablet 5 mg PO DAILY 09/22/24 09/22/24 amoxicillin 500 mg capsule 500 mg PO Q6H 09/22/24 09/22/24 doxycycline hyclate 100 mg capsule 100 mg PO BID 09/22/24 09/22/24 ibuprofen 800 mg tablet 800 mg PO Q8H PRN pain 09/22/24 09/22/24 insulin glargine 100 unit/mL (3 25 unit subcut BEDTIME 09/22/24 09/22/24 mL) subcutaneous pen (Lantus Solostar U-100 Insulin) loratadine 10 mg tablet 10 mg PO DAILY 09/22/24 09/22/24 omeprazole 20 mg capsule,delayed 20 mg PO DAILY@0630 09/22/24 09/22/24 release sumatriptan succinate 25 mg tablet 25 mg PO DAILY PRN Migraine 09/22/24 09/22/24 Headache Previous Rx's ?Medication ?Instructions ?Recorded insulin aspart U-100 100 unit/mL 1 sliding scale dose subcut 07/02/24 (3 mL) subcutaneous pen (Novolog USEASDIRECTD #15 mL FlexPen U-100 Insulin aspart) ondansetron 4 mg disintegrating 4 mg PO Q8H PRN nausea and 07/02/24 tablet vomiting #10 tabs Allergies Allergy/AdvReac Type Severity Reaction Status Date / Time Sulfa (Sulfonamide Allergy Unknown HIVES Verified 09/22/24 04:56 Antibiotics) [SULFA (SULFONAMIDE ANTIBIOTICS)] clindamycin Allergy Hives Verified 09/22/24 04:56 fish derived [fish] Allergy Anaphylaxis Verified 09/22/24 04:56 Review of Systems 2 Review of Systems: Yes all other systems are reviewed and are negative [facility] Social History Social History Alcohol intake: current Alcohol intake frequency: holidays/special occasions only Patient Tobacco Use Status: Current everyday Tobacco user Smoked in Last 30 Days: Yes Use of substances other than those prescribed or required for medical reasons: Yes Substance Use Type: Marijuana Advance Directives: No Do you have a plan to hurt others: No Plan Nutrition Risks: No Nutritional Risk Patient : No Physical Exam ED Vital Signs: Vital Signs - 24 hr 09/22/24 04:50 09/22/24 05:28 09/22/24 06:49 Temperature 98.3 F 98.4 F Pulse Rate 97 94 100 Respiratory Rate 20 24 H 24 H Blood Pressure 201/122 H 201/120 H 180/124 H Pulse Oximetry 93 94 90 L Oxygen Delivery Method Room Air Room Air Room Air Oxygen Flow Rate 09/22/24 07:23 09/22/24 08:29 09/22/24 09:24 Temperature 98.1 F Pulse Rate 97 91 88 Respiratory Rate 19 17 18 Blood Pressure 168/119 H 175/102 H 140/92 H Pulse Oximetry 91 L 90 L 97 Oxygen Delivery Method Room Air Room Air Nasal Cannula Oxygen Flow Rate 2 BMI result Body Mass Index 39.8 Const Other: The patient is a 29-year-old woman who was awake and alert but looks somewhat unwell. She seems uncomfortable and possibly mildly short of breath. She also looks quite pale. HENMT Other: Face is symmetrical. Mucous membranes not obviously dry. No intraoral swelling. Eyes General: appearance normal, both eyes and all related structures Neck Neck: Yes normal visual inspection and Yes no lymphadenopathy Resp Other: No gross increased work of breathing but I felt she had fine bilateral crackles with auscultation. Cardio Rate: regular rate Rhythm: regular rhythm Heart sounds: S1 normal heart sound present and S2 normal heart sound present GI Other: The abdomen is soft and nontender Skin Other: Skin is pale and dry Neuro Other: The patient is awake and alert. GCS is 15. Mental status seems fairly clear. Cranial nerves are grossly intact. She moves her extremities symmetrically with normal coordination. She seems grossly neurologically intact. Extrem Other: The patient has some thickness to the lower legs and feet. Whether this is definitely edema or simply the typical appearance of her legs is hard to say. I did not feel she had definite pitting edema. She seemed diffusely tender in her legs. Medications Administered Generic Name Dose Route Start Last Admin Trade Name Freq PRN Reason Stop Dose Admin Enoxaparin Sodium 40 mg 09/22/24 12:00 09/22/24 12:31 Enoxaparin Sodium 40 Mg/0.4 Ml Syringe SUBCUT 40 mg Q24H RYAN Administration Insulin Human Lispro 0 unit 09/22/24 11:30 09/22/24 14:51 Insulin Lispro 100 Unit/Ml 3 Ml Vial SUBCUT Not Given [facility] Protocol Discontinued Medications Generic Name Dose Route Start Last Admin Trade Name Freq PRN Reason Stop Dose Admin Clonidine HCl 0.1 mg 09/22/24 06:53 09/22/24 07:24 Clonidine Hcl 0.1 Mg Tablet PO 09/22/24 06:54 0.1 mg ONCE ONE Administration Protocol Diphenhydramine HCl 12.5 mg 09/22/24 08:09 09/22/24 08:31 Diphenhydramine Hcl 50 Mg/Ml Vial IVPUSH 09/22/24 08:10 12.5 mg ONCE ONE Administration Furosemide 40 mg 09/22/24 11:07 09/22/24 11:40 Furosemide 40 Mg/4 Ml Vial IVPUSH 09/22/24 11:08 40 mg STAT STA Administration Protocol Acetaminophen 1,000 mg in 100 mls @ 400 mls/hr 09/22/24 08:35 09/22/24 09:47 Ofirmev IV 09/22/24 08:49 Infused ONCE ONE Infusion Labetalol HCl 10 mg 09/22/24 08:36 09/22/24 09:36 Labetalol Hcl 100 Mg/20 Ml Vial IVPUSH 09/22/24 08:37 Not Given ONCE ONE Metoclopramide HCl 10 mg 09/22/24 07:39 09/22/24 08:31 Metoclopramide Hcl 10 Mg/2 Ml Vial IVPUSH 09/22/24 07:40 10 mg ONCE ONE Administration Medical Decision Making Medical Decision Making [facility] Narrative: The patient is a 29-year-old female with a long history of type 1 diabetes who presents with what she describes as abrupt onset of chest discomfort and shortness of breath and bilateral leg pain. Oxygen saturation was in the low 90s on room air. I felt she had crackles on her exam. Her chest x-ray was read as possibly showing some increased interstitial markings. The patient was afebrile in her labs seemed to argue against either an acute infectious process or diabetic ketoacidosis. A BNP was elevated at 500. Given her elevated BNP, her increased interstitial markings on her chest x-ray, and some fine crackles on exam I thought that perhaps she might have some degree of heart failure, possibly due to some kind of cardiomyopathy. She had flat normal troponins, essentially ruling out an acute coronary syndrome. EKG showed normal sinus rhythm at 96 beats per minute. No definite acute ischemic changes. Her QTC was 517. D-dimer was normal. Bilateral lower extremity ultrasound were negative for DVT. I think the patient does not have a pulmonary embolism. The patient was quite hypertensive. She was given 0.1 mg of clonidine with improvement in her blood pressure. She was also complaining of a headache. She has a negative head CT. She was given IV acetaminophen, IV metoclopramide, an IV diphenhydramine. Her headache improved. The patient's blood pressure improved. It is not clear if her blood pressure improved because her headache improved or the reverse. I had ordered a dose of IV labetalol but her blood pressure improved before this was given and therefore it was canceled. I had also ordered a dose of 25 units of Lantus insulin because the patient had missed her usual Lantus dose last night. However her blood sugar fell to the 40s so this was also canceled. Given her oxygen requirement and the degree of her hypertension and the possibility of some degree of heart failure she will be admitted for her the care. Her urine tox screen was positive for cocaine. It is possible that her symptoms could have been triggered by cocaine use. An echocardiogram done in the emergency room suggests the possibility of some degree of diastolic dysfunction. Lab Data 09/22/24 05:03 09/22/24 05:03 Labs: Lab Results 09/22/24 09/22/24 09/22/24 Range/Units 05:03 05:35 05:37 WBC 9.5 (4.8-10.8) X10*3/uL RBC 4.00 L (4.20-5.50) X10*6/uL Hgb 12.0 (12.0-16.0) g/dl Hct 36.6 L (37.0-47.0) % MCV 91.5 (80.0-98.0) fL MCH 30.0 (27.0-33.0) pg MCHC 32.8 (31.0-35.0) g/dl RDW 12.4 (11.0-16.0) % Plt Count 461 H (160-400) X10*3/uL MPV 8.2 L (9.4-12.3) fL Immature Gran % (Auto) 0.3 (0.0-0.4) % Neut % (Auto) 64.7 (45-73) % Lymph % (Auto) 25.2 (20-40) % [place] % (Auto) 6.7 (2-11) % Eos % (Auto) 2.4 (0-4) % Baso % (Auto) 0.7 (0-2) % Lymph # (Auto) 2.4 (1.2-4.9) X10*3/uL [place] # (Auto) 0.6 (0.1-1.2) X10*3/uL Eos # (Auto) 0.2 (0.0-0.4) X10*3/uL Baso # (Auto) 0.1 (0.0-0.2) X10*3/uL Abs Immat Gran (auto) 0.03 (0.00-0.03) X10*3/uL Absolute Neuts (auto) 6.1 (2.0-8.3) x10*3/uL Absolute Nucleated RBC 0.000 (0.0-0.012) X10*3/uL Nucleated RBC % (auto) 0.0 (0.0-0.2) /100WBC D-Dimer High Sensitivty NG/ML Sodium 138 (135-145) mmol/L Potassium 3.4 (3.3-5.1) mmol/L Chloride 107 (96-108) mmol/L Carbon Dioxide 19 L (22-29) mmol/L Anion Gap 15 (12-20) BUN 11 (9-16) mg/dL Creatinine 0.73 (0.5-1.4) mg/dL Estim Creat Clear Calc 127.1 Estimated GFR > 60 POC Glucose 192 H (60-115) mg/dL Random Glucose 202 H (60-115) mg/dL Calcium 8.5 D (8.4-10.2) mg/dL Magnesium 2.0 (1.6-2.6) mg/dL Troponin I High Sens 8.0 D (<3.5-17.0) ng/L C-Reactive Protein 1.12 H (< or = 0.50) mg/dL B-Natriuretic Peptide 509 H (<100) pg/mL Beta-Hydroxybutyrate 0.85 H (0.02-0.27) mmol/L Beta HCG, Quant < 2 mIU/mL Urine Color Urine Appearance Urine pH (5.0-9.0) Ur Specific [place] (1.005-1.025) Urine Protein (Neg-Trace) mg/dL Urine Glucose (UA) (Negative) mg/dL Urine Ketones (Negative) mg/dL Urine Blood (Negative) Urine Nitrite (Negative) Ur Leukocyte Esterase (Negative) Urine RBC (0-2) /HPF Urine WBC (0-5) /HPF Ur Squamous Epith Cells (0-2) /HPF Urine Bacteria (None Seen) Hyaline Casts (0-2) /LPF Urine Opiates Screen (Not Detect) Ur Buprenorphine Scrn (Not Detect) ng/mL Ur Oxycodone Screen (Not Detect) ng/mL Urine Methadone Screen (Not Detect) ng/mL Urine Fentanyl Screen (Not Detect) Ur Barbiturates Screen (Not Detect) Ur Phencyclidine Scrn (Not Detect) Ur Amphetamines Screen (Not Detect) U Benzodiazepines Scrn (Not Detect) Urine Cocaine Screen (Not Detect) U Marijuana (THC) Screen (Not Detect) Influenza Type A (PCR) NEGATIVE (Negative) Influenza Type B (PCR) NEGATIVE (Negative) RSV RNA Qual (PCR) NEGATIVE (Negative) SARS-CoV-2 RNA (RT-PCR) NEGATIVE (Negative) 09/22/24 09/22/24 09/22/24 Range/Units 07:50 09:27 09:58 WBC (4.8-10.8) X10*3/uL RBC (4.20-5.50) X10*6/uL Hgb (12.0-16.0) g/dl Hct (37.0-47.0) % MCV (80.0-98.0) fL MCH (27.0-33.0) pg MCHC (31.0-35.0) g/dl RDW (11.0-16.0) % Plt Count (160-400) X10*3/uL MPV (9.4-12.3) fL Immature Gran % (Auto) (0.0-0.4) % Neut % (Auto) (45-73) % Lymph % (Auto) (20-40) % [place] % (Auto) (2-11) % Eos % (Auto) (0-4) % Baso % (Auto) (0-2) % Lymph # (Auto) (1.2-4.9) X10*3/uL [place] # (Auto) (0.1-1.2) X10*3/uL Eos # (Auto) (0.0-0.4) X10*3/uL Baso # (Auto) (0.0-0.2) X10*3/uL Abs Immat Gran (auto) (0.00-0.03) X10*3/uL Absolute Neuts (auto) (2.0-8.3) x10*3/uL Absolute Nucleated RBC (0.0-0.012) X10*3/uL Nucleated RBC % (auto) (0.0-0.2) /100WBC D-Dimer High Sensitivty 225 NG/ML Sodium (135-145) mmol/L Potassium (3.3-5.1) mmol/L Chloride (96-108) mmol/L Carbon Dioxide (22-29) mmol/L Anion Gap (12-20) BUN (9-16) mg/dL Creatinine (0.5-1.4) mg/dL Estim Creat Clear Calc Estimated GFR POC Glucose (60-115) mg/dL Random Glucose (60-115) mg/dL Calcium (8.4-10.2) mg/dL Magnesium (1.6-2.6) mg/dL Troponin I High Sens 8.5 (<3.5-17.0) ng/L C-Reactive Protein (< or = 0.50) mg/dL B-Natriuretic Peptide (<100) pg/mL Beta-Hydroxybutyrate (0.02-0.27) mmol/L Beta HCG, Quant mIU/mL Urine Color Yellow Urine Appearance Clear Urine pH 6.5 (5.0-9.0) Ur Specific [place] 1.015 (1.005-1.025) Urine Protein >=1000 (4+) H (Neg-Trace) mg/dL Urine Glucose (UA) 250 H (Negative) mg/dL Urine Ketones Trace (Negative) mg/dL Urine Blood Small (1+) H (Negative) Urine Nitrite Negative (Negative) Ur Leukocyte Esterase Negative (Negative) Urine RBC 6-10 H (0-2) /HPF Urine WBC 0-5 (0-5) /HPF Ur Squamous Epith Cells 0-2 (0-2) /HPF Urine Bacteria None Seen (None Seen) Hyaline Casts 3-5 (0-2) /LPF Urine Opiates Screen Not Detected (Not Detect) Ur Buprenorphine Scrn Not Detected (Not Detect) ng/mL Ur Oxycodone Screen Not Detected (Not Detect) ng/mL Urine Methadone Screen Not Detected (Not Detect) ng/mL Urine Fentanyl Screen Not Detected (Not Detect) Ur Barbiturates Screen Not Detected (Not Detect) Ur Phencyclidine Scrn Not Detected (Not Detect) Ur Amphetamines Screen Not Detected (Not Detect) U Benzodiazepines Scrn Not Detected (Not Detect) Urine Cocaine Screen POSITIVE H (Not Detect) U Marijuana (THC) Screen POSITIVE H (Not Detect) Influenza Type A (PCR) (Negative) Influenza Type B (PCR) (Negative) RSV RNA Qual (PCR) (Negative) SARS-CoV-2 RNA (RT-PCR) (Negative) Critical Care Time Critical Care Time Critical Care Time: Yes Total Critical Care Time: 60 Attestation: The patient was critically ill with a high probability of imminent or life- threatening deterioration. ?I spent greater than 30 minutes of discontinuous time evaluating the patient, delivering critical care at the bedside, discussing evaluating data with consultants. ?Critical care time does not include time spent performing separately billable procedures or teaching. ?Time spent performing critical care with 60 minutes. Discharge Plan Discharge Clinical Impression: Hypertension, Shortness of breath, Type 1 diabetes Patient Disposition: Admitted As Inpatient
[2024-09-22 07:00] LABS: C Reactive Protein 1.12 mg/dL (< or = 0.50)
[2024-09-22 07:12] LABS: B Type Natriuretic Peptide 509 pg/mL (<100)
[2024-09-22] MEDS: cloNIDine HCL 0.1 MG TABLET PO (07:24)
[2024-09-22 08:15] LABS: Troponin-I High Sensitivity 8.5 ng/L (<3.5-17.0)
[2024-09-22] MEDS: diphenhydrAMINE HCL 50 MG/ML VIAL 12.5 MG IVPUSH (08:31)
[2024-09-22] MEDS: Metoclopramide HCl 10 MG/2 ML VIAL IVPUSH (08:31)
--- NOTE | 2024-09-22 08:33 | CA_ITS ---
Transthoracic Echocardiogram Patient (Last, First, Middle): Wendy Otoole, Gender: Female Date of : 1995 Age: 29 Procedure Date: 09/22/2024 Procedure Type: Transthoracic Echocardiogram Location: ER Height: 157.48 cm Weight: 95.26 kg BSA: 1.95 m2 Heart Rate: 88 bpm BP: 147 / 86 mmHg Medical Chemist: Referring MD: Jony Pacheco MD Symptoms: NEw onset SOB, peripheral edema, BNP elevation Study Quality: Adequate ECG Rhythm: Sinus Conclusions: - The left ventricular systolic function is normal. The visually estimated ejection fraction is between 55-60%. - Evidence suggests grade II (moderate) diastolic dysfunction. - No obvious valvular pathology seen on this study. Findings Left Ventricle Normal left ventricular cavity size. There is moderately increased left ventricular wall thickness. The left ventricular systolic function is normal. The visually estimated ejection fraction is between 55-60%. There is no evidence of regional wall motion abnormalities. Evidence suggests grade II (moderate) diastolic dysfunction. Right Ventricle Normal right ventricular cavity size and systolic function. Atria Both atria are normal in size. Aortic Valve The aortic valve was not well visualized. There is no aortic valve regurgitation. Gradients are increased because of high stroke volume. Doubt any significant aortic stenosis. Mitral Valve The mitral valve appears normal. There is no mitral valve regurgitation. There is no mitral valve stenosis. Pulmonic Valve The pulmonic valve is likely normal. Tricuspid Valve There is trace tricuspid valve regurgitation. There is no evidence of pulmonary hypertension. Great Vessels The asc aorta is normal in size. Venous The inferior vena cava is normal in size and collapses greater than 50% with inspiration. Pericardium/Pleural There is no evidence of pericardial effusion. Prior Study Comparison No prior study available for comparison. Recommendations, Care & Conclusions No obvious valvular pathology seen on this study. Measurements 2D Linear Measurements IVSd: 1.32 0.6-0.9/0.6-1.0 cm LVIDd: 4.33 3.9-5.3/4.2-5.9 cm LVIDd Index: 2.22 2.4-3.2/2.2-3.1 cm/m2 LVIDs: 3.12 2.0-3.6 cm LVPWd: 1.39 0.7-1.1 cm Ao Root: 2.50 2.1-3.5 cm LA Diam: 3.40 2.7-3.8/3.0-4.0 cm LAIDs Index: 1.74 1.5-2.3 cm/m2 LV Mass: 278.44 67-162/88-224 g LV Mass Index: 142.79 43-95/49-115 g/m2 LVOT Diam: 1.90 3.0+(-)1.3 cm 2D Systolic Function EF 4C: 56.60 >55% EF 2C: 66.80 >55% EF BiP: 60.30 >55% Mitral Valve MV VTI: 0.33 MV Pk Ryan: 1.48 MV Mn Ryan: 0.90 MV Pk Grad: 9.00 MV Mn Grad: 4.00 MV Pk E: 1.26 MV PK A: 1.03 MV Decel Time: 176.00 E/A: 1.20 E'Lateral: 8.05 E'Medial: 5.33 E/E' Med: 23.60 E/E' Lat: 15.70 PHT: 52.00 MVA PHT: 4.23 MVA Continuity: 2.50 Decel [place]: 7.16 Aortic Valve AoV Pk Ryan: 2.56 AoV Mn Ryan: 1.66 AoV VTI: 0.52 AoV Pk Grad: 26.00 Aov Mn Grad: 14.00 ELIAS Cont.VTI: 1.59 LVOT LVOT Pk Ryan: 1.32 LVOT Mn Ryan: 0.96 LVOT VTI: 0.29 LVOT Pk Grad: 7.00 LVOT Mn Grad: 4.00 LVOT Diam: 1.90 LVOT Area: 2.84 Diastolic Function MV Pk E: 1.26 MV Pk A: 1.03 E/A: 1.20 E'Medial: 5.33 E/E' Med: 23.60 E' Laterial: 8.05 E/E' Lat: 15.70 Right Ventricle TAPSE (mm): 27.40 TVS' Ryan: 15.70 Tricuspid Valve TR Pk Ryan: 2.52 TR Pk Grad: 25.00 RA Press: 3.00 RVSP: 29.00 Great Vessels Aorta Ao Root-2D: 2.50 2.0-3.7 cm Ao Asc: 2.90 2.1-3.4 cm Pulmonary Valve PV Pk Ryan: 0.95 Peak PV Grad: 4.00 Updated in Other Vendor System with Status of Final Nirmal Gunderson MD electronically signed on 09/22/2024 12:19:42 PM with status of Final
[2024-09-22] MEDS: Acetaminophen 1,000 MG/100 ML PIGGYBACK 400 MG IV (09:25)
[2024-09-22 09:38] LABS: Appearance Urine Clear; Color Urine Yellow; Glucose Urine UA 250 mg/dL (Negative); Leukocyte Esterase Urine Negative (Negative); Nitrite Urine Negative (Negative); PH 6.5 (5.0-9.0); Specific Gravity - Urine 1.015 (1.005-1.025); UMIC TRIGGER UACC YES; Urine Blood Small (1+) (Negative); Urine Ketones Trace mg/dL (Negative); Urine Protein >=1000 (4+) mg/dL (Neg-Trace)
[2024-09-22 09:48] LABS: Bacteria Urine None Seen (None Seen); Squamous Epithelial Cell Urine 0-2 /HPF (0-2); WBC Urine 0-5 /HPF (0-5)
[2024-09-22 10:17] LABS: D Dimer High Sensitivity 225 NG/ML
[2024-09-22 10:39] LABS: Amphetamine Screen Urine Not Detected (Not Detect); Barbiturates, Urine Not Detected (Not Detect); Benzodiazepines Screen Urine Not Detected (Not Detect); Buprenorphine Scr Not Detected (Not Detect); Cannabinoid Screen Urine POSITIVE (Not Detect); Cocaine Screen Urine POSITIVE (Not Detect); Fentanyl, urine Not Detected (Not Detect); Methadone Screen, Urine Not Detected (Not Detect); Opiate Screen Urine Not Detected (Not Detect); Oxycodone Screen Urine Not Detected (Not Detect); Phencyclidine Screen Urine Not Detected (Not Detect)
--- NOTE | 2024-09-22 11:11 | P.HPHOSP_ITS ---
History of Present Illness Date of Service: 09/22/24 Chief Complaint: Multiple complaints The patient is a 29-year-old female with a medical history of type 1 diabetes, hypertension and prior alcohol/cocaine use who presents to [facility] with multiple complaints. The patient reports lower extremity swelling and burning sensation which has progressively worsened over the last 2 days. She endorses orthopnea over the last 2 weeks with associated PND with cough. She reports exertional dyspnea around the same time. She reports waking up on the day of hospitalization with a headache and visual changes with chest pressure. She reports she checked her blood pressure which was noted to be 214/140 at home. Due to these symptoms, the patient presented to the emergency room. The patient reports that she has been on Norvasc 5 mg daily for about 3 months. She reports compliance with her medications. Of note, the patient's urine drug screen was positive for cocaine and marijuana. She reports that previously she was a heavy cocaine user in conjunction with her alcohol use. However for about the last 1 year she has significantly cut back on her alcohol use drinking only once or twice a month. She reports that her cocaine use prior to this most recent 1 was ?months ago?. In the emergency room the patient was noted to have blood pressure readings over 200/100. She was treated with 0.1 mg of clonidine. Further workup which included chest imaging showed interstitial prominence. Her BNP was elevated to 500. She had initial crackles on exam and was noted to have 2+ pitting edema. She was also noted to have borderline hypoxia with an SpO2 of 90% on room air. Given the constellation of these findings, the patient will be admitted for further treatment of hypertensive urgency and possible new onset CHF/cardiomyopathy. Review of Systems 2 Review of Systems: Negative except HPI/interval history. [facility] Social History Alcohol intake: current Alcohol intake frequency: holidays/special occasions only Patient Tobacco Use Status: Current everyday Tobacco user Smoked in Last 30 Days: Yes Use of substances other than those prescribed or required for medical reasons: Yes Substance Use Type: Marijuana Advance Directives: No Do you have a plan to hurt others: No Plan Nutrition Risks: No Nutritional Risk Patient : No Meds Allergies Allergy/AdvReac Type Severity Reaction Status Date / Time Sulfa (Sulfonamide Allergy Unknown HIVES Verified 09/22/24 04:56 Antibiotics) [SULFA (SULFONAMIDE ANTIBIOTICS)] clindamycin Allergy Hives Verified 09/22/24 04:56 fish derived [fish] Allergy Anaphylaxis Verified 09/22/24 04:56 Active Medications: Current Medications Acetaminophen (Acetaminophen 325 Mg Tablet) 650 mg PO Q6H PRN PRN Reason: Pain, Mild 1-3,fever,headache Calcium Carbonate (Calcium Carbonate 750 Mg Tab.Chew) 750 mg PO Q4H PRN PRN Reason: Heartburn Enoxaparin Sodium (Enoxaparin Sodium 40 Mg/0.4 Ml Syringe) 40 mg SUBCUT Q24H RYAN Furosemide (Furosemide 40 Mg/4 Ml Vial) 40 mg IVPUSH STAT STA; Protocol Stop: 09/22/24 11:08 Magnesium Hydroxide (Milk Of Magnesia 30 Ml Oral.Susp) 30 ml PO DAILY PRN PRN Reason: Constipation Melatonin (Melatonin 3 Mg Tablet) 6 mg PO BEDTIME PRN PRN Reason: Insomnia Sodium Chloride (0.9 % Sodium Chloride Flush 3 Ml Syringe) 3 ml IVFLUSH QSHIFT RYAN Home Medications ?Medication ?Instructions ?Recorded ?Confirmed ?Last Taken ?Type amlodipine 5 mg tablet 5 mg PO DAILY 09/22/24 Unknown History amoxicillin 500 mg capsule 500 mg PO Q6H 09/22/24 Unknown History doxycycline hyclate 100 mg capsule 100 mg PO BID 09/22/24 Unknown History ibuprofen 800 mg tablet 800 mg PO Q8H PRN pain 09/22/24 Unknown History insulin glargine 100 unit/mL (3 50 unit subcut BEDTIME 09/22/24 Unknown History mL) subcutaneous pen (Lantus Solostar U-100 Insulin) omeprazole 20 mg capsule,delayed 20 mg PO DAILY 09/22/24 Unknown History release sumatriptan succinate 25 mg tablet 25 mg PO DAILY PRN Migraine 09/22/24 Unknown History Headache Physical Exam 2 Vital Signs and Narrative: Vital Signs: Last Vital Signs Temp 98.1 F 09/22/24 07:23 Pulse 88 09/22/24 09:24 Resp 18 09/22/24 09:24 BP 140/92 H 09/22/24 09:24 Pulse Ox 97 09/22/24 09:24 O2 Del Method Nasal Cannula 09/22/24 09:24 O2 Flow Rate 2 09/22/24 09:24 BMI result Body Mass Index 39.8 Const: Other: Constitutional - Awake and Alert, No apparent distress Eyes - PERRLA, EOMI Cardiovascular - S1S2, RRR, No edema Respiratory - trace rales at bases; unable to evaluate JVD due to body habitus; 2+ pitting edema b/l Gastrointestinal - NT / ND; +BS; No rebound or guarding - No CVA tenderness Extremities - no calf tenderness bilaterally, edema b/l Musculoskeletal - Normal inspection, normal ROM Skin - Warm/Dry Neurological - Alert & oriented x3, No focal deficit Psychological - Appropriate affect Results Labs 09/22/24 05:03 09/22/24 05:03 Labs: Laboratory Results - last 24 hr 09/22/24 09/22/24 09/22/24 05:03 05:35 05:37 MCV 91.5 MCH 30.0 MCHC 32.8 RDW 12.4 Plt Count 461 H MPV 8.2 L Immature Gran % (Auto) 0.3 Neut % (Auto) 64.7 Lymph % (Auto) 25.2 [place] % (Auto) 6.7 Eos % (Auto) 2.4 Baso % (Auto) 0.7 Lymph # (Auto) 2.4 [place] # (Auto) 0.6 Eos # (Auto) 0.2 Baso # (Auto) 0.1 Abs Immat Gran (auto) 0.03 Absolute Neuts (auto) 6.1 Absolute Nucleated RBC 0.000 Nucleated RBC % (auto) 0.0 D-Dimer High Sensitivty Anion Gap 15 Estim Creat Clear Calc 127.1 Estimated GFR > 60 POC Glucose 192 H Random Glucose 202 H Calcium 8.5 D Magnesium 2.0 C-Reactive Protein 1.12 H B-Natriuretic Peptide 509 H Beta-Hydroxybutyrate 0.85 H Beta HCG, Quant < 2 Urine Color Urine Appearance Urine pH Ur Specific [place] Urine Protein Urine Glucose (UA) Urine Ketones Urine Blood Urine Nitrite Ur Leukocyte Esterase Urine RBC Urine WBC Ur Squamous Epith Cells Urine Bacteria Hyaline Casts Urine Opiates Screen Ur Buprenorphine Scrn Ur Oxycodone Screen Urine Methadone Screen Urine Fentanyl Screen Ur Barbiturates Screen Ur Phencyclidine Scrn Ur Amphetamines Screen U Benzodiazepines Scrn Urine Cocaine Screen U Marijuana (THC) Screen Influenza Type A (PCR) NEGATIVE Influenza Type B (PCR) NEGATIVE RSV RNA Qual (PCR) NEGATIVE SARS-CoV-2 RNA (RT-PCR) NEGATIVE 09/22/24 09/22/24 09:27 09:58 MCV MCH MCHC RDW Plt Count MPV Immature Gran % (Auto) Neut % (Auto) Lymph % (Auto) [place] % (Auto) Eos % (Auto) Baso % (Auto) Lymph # (Auto) [place] # (Auto) Eos # (Auto) Baso # (Auto) Abs Immat Gran (auto) Absolute Neuts (auto) Absolute Nucleated RBC Nucleated RBC % (auto) D-Dimer High Sensitivty 225 Anion Gap Estim Creat Clear Calc Estimated GFR POC Glucose Random Glucose Calcium Magnesium C-Reactive Protein B-Natriuretic Peptide Beta-Hydroxybutyrate Beta HCG, Quant Urine Color Yellow Urine Appearance Clear Urine pH 6.5 Ur Specific [place] 1.015 Urine Protein >=1000 (4+) H Urine Glucose (UA) 250 H Urine Ketones Trace Urine Blood Small (1+) H Urine Nitrite Negative Ur Leukocyte Esterase Negative Urine RBC 6-10 H Urine WBC 0-5 Ur Squamous Epith Cells 0-2 Urine Bacteria None Seen Hyaline Casts 3-5 Urine Opiates Screen Not Detected Ur Buprenorphine Scrn Not Detected Ur Oxycodone Screen Not Detected Urine Methadone Screen Not Detected Urine Fentanyl Screen Not Detected Ur Barbiturates Screen Not Detected Ur Phencyclidine Scrn Not Detected Ur Amphetamines Screen Not Detected U Benzodiazepines Scrn Not Detected Urine Cocaine Screen POSITIVE H U Marijuana (THC) Screen POSITIVE H Influenza Type A (PCR) Influenza Type B (PCR) RSV RNA Qual (PCR) SARS-CoV-2 RNA (RT-PCR) Imaging Radiologist's Impressions: Impressions Venous Duplex 09/22/24 08:27 IMPRESSION: No evidence of deep venous thrombosis involving the bilateral lower extremities. Electronically signed by: Xiang Johnson MD 09/22/2024 09:11 AM EDT RP Head CT 09/22/24 09:10 IMPRESSION: No acute brain abnormality by CT Electronically signed by: Herson Grimes MD 09/22/2024 09:28 AM EDT RP Assessment and Plan (1) Hypertension: Status: Acute Plan 29 yo F with a PMH of type 1 DM, HTN and prior EtOH/Coaine use who presents to the ED with a 1 day history of multiple issues. Her presentation and work up in the ED is concerning for hypertensive emergency with possible underlying CHF/cardiomyopathy. 1. Hypertensive emergency Presented with BP > 200/100 with shortness of breath and chest pain pt reports compliance with home norvasc 5mg -- will likely need titration, will increase to 10mg (starting tonight -- pt takes at bedtime) BP now improved 2. Suspected new-onset CHF pt with orthopnea, pnd, LE edema with elevated BNP and CXR showing fluid, low- normal SpO2 of 90% IV lasix 40mg bid 2d echo cardiology consult 3. DM type I no gap, pH not acidotic continue lantus + sliding scale 4. Morbid obesity outpatient weight weight mgmt follow up 5. EtOH/Cocaine use reports prior heavy use, but last 1 year reports intermittent usage explained to her the connection between alcohol/cocaine and heart health offered addiction med / recovery services, which she declines 6. Recent tooth infection on augmentin/doxy -- last day tomorrow Full Code DVT pptx - Lovenox Patient with hypertensive emergency and suspected new onset CHF/cardiomyopathy with borderline low normal SpO2 requiring close blood pressure monitoring and up titration of medications along with IV diuresis and cardiology evaluation, therefore expected to require at least 2 midnights in the hospital for management and hence will be admitted as inpatient. Med Rec pending -- will continue baseline meds as appropriate. Addendum: 2d echo completed showing: Conclusions: - The left ventricular systolic function is normal. The visually estimated ejection fraction is between 55-60%. - Evidence suggests grade II (moderate) diastolic dysfunction. - No obvious valvular pathology seen on this study. Will continue IV lasix 40mg BID Quality Stroke Does the patient have a stroke diagnosis?: No VTE Prior VTE?: No VTE Risk Level:: Medical - moderate - high VTE Device Contraindication: N/A - Device Ordered VTE Drug Contraindication: N/A - Med Ordered
[2024-09-22 11:17] LABS: Glucose, Whole Blood 44 mg/dL (60-115)
[2024-09-22 11:17] LABS: Glucose, Whole Blood 43 mg/dL (60-115)
--- NOTE | 2024-09-22 11:24 | PC.NURSE ---
POC taken x2 with two critical low results [address] Jony Pacheco notified and pt given PO food and drink pt alert, oriented, denies symptoms.
[2024-09-22] MEDS: Furosemide 40 MG/4 ML VIAL IVPUSH ×2 (11:40→18:36)
[2024-09-22] MEDS: Enoxaparin Sodium 40 MG/0.4 ML SYRINGE SUBCUT (12:31)
[2024-09-22 12:51] LABS: Glucose, Whole Blood 167 mg/dL (60-115)
--- NOTE | 2024-09-22 14:48 | PC.NURSE ---
attempted to administer pts lunch time insulin, pt informed this RN that she took her home insulin already. educated against doing this in the future given hospital protocol. pt agreeable.
--- NOTE | 2024-09-22 15:48 | PHA.MEDREC ---
Addendum entered by Guru Singh RPh 09/22/24 16:10: Reviewed by [facility] Original Note: Pharmacy Consult ? Medication Reconciliation Pharmacy has completed the medication reconciliation. Spoke to patient to confirm med list. Patient confirmed Lantus Solostar in now 25 units at bedtime and Humalog is per sliding scale TID. Patient states she took all her medications yesterday.
--- NOTE | 2024-09-22 17:36 | PC.NURSE ---
pt BP elevated and she is complaining of a headache, informed MD Cancino, plan to give tylenol and 8pm Amlodapine dose at this time.
[2024-09-22] MEDS: Acetaminophen 325 MG TABLET 650 MG PO (17:41)
[2024-09-22] MEDS: amLODIPine Besylate 10 MG TABLET PO (17:42)
[2024-09-22] MEDS: 0.9 % Sodium Chloride Flush 3 ML SYRINGE IVFLUSH ×2 (17:44→20:47)
[2024-09-22 17:53] LABS: Glucose, Whole Blood 120 mg/dL (60-115)
[2024-09-22 20:06] LABS: Glucose, Whole Blood 203 mg/dL (60-115)
[2024-09-22] MEDS: Doxycycline Monohydrate 100 MG CAPSULE PO (20:45)
[2024-09-22] MEDS: Insulin Glargine,Hum.rec.anlog 100 UNIT/ML 10 ML VIAL 25 UNIT SUBCUT (20:46)
[2024-09-22] MEDS: Amoxicillin/Potassium Clav 875 MG TABLET PO (20:46)
[2024-09-22] MEDS: SUMAtriptan succinate 25 MG TABLET PO (20:52)
[2024-09-22] MEDS: Insulin Lispro 100 UNIT/ML 3 ML VIAL SUBCUT (20:53)
[2024-09-23] VITALS (10 sets, daily range): BP systolic 150–198; BP diastolic 80–96; PULSE 88–96; RESP 17–19; TEMP 36.1–36.6; O2SAT 90–98
[2024-09-23] MEDS: Acetaminophen 325 MG TABLET 650 MG PO (04:30)
[2024-09-23] MEDS: Omeprazole 20 MG CAPSULE.DR PO (06:15)
[2024-09-23 07:24] LABS: Glucose, Whole Blood 176 mg/dL (60-115)
[2024-09-23] MEDS: 0.9 % Sodium Chloride Flush 3 ML SYRINGE IVFLUSH ×2 (08:29→17:33)
[2024-09-23] MEDS: Amoxicillin/Potassium Clav 875 MG TABLET PO ×2 (08:29→20:23)
[2024-09-23] MEDS: Doxycycline Monohydrate 100 MG CAPSULE PO ×2 (08:29→20:24)
[2024-09-23] MEDS: Insulin Lispro 100 UNIT/ML 3 ML VIAL SUBCUT ×4 (08:29→20:25)
[2024-09-23] MEDS: Loratadine 10 MG TABLET PO (08:29)
[2024-09-23] MEDS: Furosemide 40 MG/4 ML VIAL IVPUSH ×2 (08:30→18:37)
[2024-09-23 08:31] LABS: Anion Gap 14 (12-20); Blood Urea Nitrogen 13 mg/dL (9-16); Calcium 8.3 mg/dL (8.4-10.2); Carbon Dioxide 25 mmol/L (22-29); Chloride 102 mmol/L (96-108); Creatinine Clr Calc Pharmacy 129.3; Estimated Glomerular Filt Rate > 60; Glucose Random 185 mg/dL (60-115); Potassium 3.8 mmol/L (3.3-5.1); Sodium 137 mmol/L (135-145)
--- NOTE | 2024-09-23 09:17 | P.CONCA_ITS ---
History of Present Illness History of Present Illness Date of Service: 09/23/24 Chief complaint: sob, chest aleksandar, leg swelling Narrative: This is a cardiology consultation regarding possible congestive heart failure. Patient has a history of type one diabetes, hypertension. History of alcohol/cocaine use in the past. Current admissions because of lower extremity swelling and she has also been having some increasing shortness of breath. Per H and P, home blood pressure was very high in the 200s. Even after arrival blood pressures have been quite high. Drug screen is positive for cocaine/marijuana. Per documentation, there is mention of heavy cocaine use as well as alcohol. Any case, she is treated for combination of hypertensive urgency/congestive heart failure. She denies any prior cardiac history. Currently, she states that she is feeling slightly better but not yet back to her baseline. Review of Systems 2 Review of Systems: Yes all other systems are reviewed and are negative Constitutional: Constitutional: Reports as per HPI and Reports no additional constitutional complaints Eyes: Eyes: Reports as per HPI and Denies no additional eye complaints ENT: Denies system reviewed and no additional complaints, except as documented and Reports as per HPI Cardiovascular: Cardiovascular: Reports as per HPI, Reports no additional cardiovascular complaints, Denies acrocyanosis, Denies cool extremities, Denies chest pain, Reports leg edema, Denies lightheadedness, Denies palpitations and Reports dyspnea Respiratory: Respiratory: Reports as per HPI, Denies no additional respiratory complaints and Reports dyspnea Gastrointestinal: Gastrointestinal: Reports as per HPI and Denies no additional gastrointestinal complaints Genitourinary: Genitourinary: Reports as per HPI Musculoskeletal: Musculoskeletal: Reports no additional musculoskeletal complaints and Reports as per HPI Integumentary/Breasts: Skin/Breast: Reports system reviewed and no additional complaints, except as docu Neurologic: Reports system reviewed and no additional complaints, except as documented and Reports as per HPI Psychiatric: Psychiatric: Reports no additional psychiatric complaints and Reports as per HPI Endocrine: Endocrine: Reports no additional endocrine complaints, Reports as per HPI and Denies palpitations Hematologic/Lymphatic: Hematologic/Lymphatic: Reports no additional hematologic/lymphatic complaints and Reports as per HPI Allergic/Immunologic: Allergic/Immunologic: Reports no additional allergic/immunologic complaints and Reports as per HPI [facility] Family History Family History (Updated 09/23/24 @ 09:20 by Nirmal Gunderson MD) Father Hypertension Social History Social History Household Members: Family Housing: House Do you presently have visiting nurse or other home services: No Alcohol intake: current Alcohol intake frequency: holidays/special occasions only Patient Tobacco Use Status: Never used Tobacco Substance Use Type: Marijuana Meds Allergies Allergy/AdvReac Type Severity Reaction Status Date / Time Sulfa (Sulfonamide Allergy Unknown HIVES Verified 09/22/24 04:56 Antibiotics) [SULFA (SULFONAMIDE ANTIBIOTICS)] clindamycin Allergy Hives Verified 09/22/24 04:56 fish derived [fish] Allergy Anaphylaxis Verified 09/22/24 04:56 Active Medications: Current Medications Acetaminophen (Acetaminophen 325 Mg Tablet) 650 mg PO Q6H PRN PRN Reason: Pain, Mild 1-3,fever,headache Last Admin: 09/23/24 04:30 Dose: 650 mg Amlodipine Besylate (Amlodipine Besylate 10 Mg Tablet) 10 mg PO DAILY@2000 [facility]; Protocol Last Admin: 09/22/24 17:42 Dose: 10 mg Amoxicillin/Clavulanate Potassium (Amoxicillin/Potassium Clav 875 Mg Tablet) 875 mg PO BID [facility] Stop: 09/23/24 21:01 Last Admin: 09/23/24 08:29 Dose: 875 mg Calcium Carbonate (Calcium Carbonate 750 Mg Tab.Chew) 750 mg PO Q4H PRN PRN Reason: Heartburn Doxycycline Monohydrate (Doxycycline Monohydrate 100 Mg Capsule) 100 mg PO BID [facility] Stop: 09/23/24 21:01 Last Admin: 09/23/24 08:29 Dose: 100 mg Enoxaparin Sodium (Enoxaparin Sodium 40 Mg/0.4 Ml Syringe) 40 mg SUBCUT Q24H [facility] Last Admin: 09/22/24 12:31 Dose: 40 mg Furosemide (Furosemide 40 Mg/4 Ml Vial) 40 mg IVPUSH BID@0900,1800 [facility]; Protocol Last Admin: 09/23/24 08:30 Dose: 40 mg Insulin Glargine (Insulin Glargine,Hum.Rec.Anlog 100 Unit/Ml 10 Ml Vial) 25 unit SUBCUT BEDTIME [facility] Last Admin: 09/22/24 20:46 Dose: 25 unit Insulin Human Lispro (Insulin Lispro 100 Unit/Ml 3 Ml Vial) 0 unit SUBCUT QIDACHS [facility]; Protocol Last Admin: 09/23/24 08:29 Dose: 2 unit Loratadine (Loratadine 10 Mg Tablet) 10 mg PO DAILY [facility] Last Admin: 09/23/24 08:29 Dose: 10 mg Magnesium Hydroxide (Milk Of Magnesia 30 Ml Oral.Susp) 30 ml PO DAILY PRN PRN Reason: Constipation Melatonin (Melatonin 3 Mg Tablet) 6 mg PO BEDTIME PRN PRN Reason: Insomnia Omeprazole (Omeprazole 20 Mg Capsule.Dr) 20 mg PO DAILY@0630 [facility] Last Admin: 09/23/24 06:15 Dose: 20 mg Sodium Chloride (0.9 % Sodium Chloride Flush 3 Ml Syringe) 3 ml IVFLUSH QSHIFT [facility] Last Admin: 09/23/24 08:29 Dose: 3 ml Sumatriptan Succinate (Sumatriptan Succinate 25 Mg Tablet) 25 mg PO DAILY PRN PRN Reason: Migraine Headache Last Admin: 09/22/24 20:52 Dose: 25 mg Home Medications ?Medication ?Instructions ?Recorded ?Confirmed ?Last Taken ?Type albuterol sulfate 90 mcg/actuation 2 puff inhalation QID PRN wheezing 09/22/24 09/22/24 Unknown History aerosol inhaler (Ventolin HFA) amlodipine 5 mg tablet 5 mg PO DAILY 09/22/24 09/22/24 09/21/24 History amoxicillin 500 mg capsule 500 mg PO Q6H 09/22/24 09/22/24 09/21/24 History doxycycline hyclate 100 mg capsule 100 mg PO BID 09/22/24 09/22/24 09/21/24 History ibuprofen 800 mg tablet 800 mg PO Q8H PRN pain 09/22/24 09/22/24 Unknown History insulin glargine 100 unit/mL (3 25 unit subcut BEDTIME 09/22/24 09/22/24 09/21/24 History mL) subcutaneous pen (Lantus Solostar U-100 Insulin) loratadine 10 mg tablet 10 mg PO DAILY 09/22/24 09/22/24 09/21/24 History omeprazole 20 mg capsule,delayed 20 mg PO DAILY@0630 09/22/24 09/22/24 09/21/24 History release sumatriptan succinate 25 mg tablet 25 mg PO DAILY PRN Migraine 09/22/24 09/22/24 Unknown History Headache Physical Exam 2 Vital Signs: Vital Signs: Last Vital Signs Temp 97.8 F 09/23/24 07:37 Pulse 91 09/23/24 07:37 Resp 17 09/23/24 07:37 BP 164/90 H 09/23/24 07:37 Pulse Ox 94 09/23/24 07:37 O2 Del Method Room Air 09/23/24 07:37 O2 Flow Rate 3 09/23/24 04:00 BMI result Body Mass Index 39.1 Const: General: comfortable and no acute distress O rientation/consciousness: patient oriented x3 HEENT: Other: Unremarkable Head: Yes normal to inspection Neck: Neck: Yes normal visual inspection Chest: Chest palpation & inspection: normal inspection of the chest Resp: Auscultation: rhonchi and diminished lung sounds Cardio: Palpation: normal PMI Heart sounds: S1 normal heart sound present, S2 normal heart sound present, no gallops, no murmurs and no rubs GI: Palpation (GI): Soft to palpation Back/Spine/Pelvis: Other: unremarkable Skin: General skin exam: no rashes or lesions noted Neuro: General: patient oriented x3 Extrem: Other: 2+ edema General: Yes normal to inspection Psych: Mental Status: mental status grossly normal Objective Labs and Meds 09/22/24 05:03 09/23/24 06:52 Lab results: Laboratory Results - last 24 hr 09/22/24 09/22/24 09/22/24 09:27 09:58 11:11 Hold Purple Top D-Dimer High Sensitivty 225 Sodium Potassium Chloride Carbon Dioxide Anion Gap BUN Creatinine Estim Creat Clear Calc Estimated GFR POC Glucose 44 L* Random Glucose Calcium Urine Color Yellow Urine Appearance Clear Urine pH 6.5 Ur Specific Jay 1.015 Urine Protein >=1000 (4+) H Urine Glucose (UA) 250 H Urine Ketones Trace Urine Blood Small (1+) H Urine Nitrite Negative Ur Leukocyte Esterase Negative Urine RBC 6-10 H Urine WBC 0-5 Ur Squamous Epith Cells 0-2 Urine Bacteria None Seen Hyaline Casts 3-5 Urine Opiates Screen Not Detected Ur Buprenorphine Scrn Not Detected Ur Oxycodone Screen Not Detected Urine Methadone Screen Not Detected Urine Fentanyl Screen Not Detected Ur Barbiturates Screen Not Detected Ur Phencyclidine Scrn Not Detected Ur Amphetamines Screen Not Detected U Benzodiazepines Scrn Not Detected Urine Cocaine Screen POSITIVE H U Marijuana (THC) Screen POSITIVE H 09/22/24 09/22/24 09/22/24 11:13 12:47 17:49 Hold Purple Top D-Dimer High Sensitivty Sodium Potassium Chloride Carbon Dioxide Anion Gap BUN Creatinine Estim Creat Clear Calc Estimated GFR POC Glucose 43 L* 167 H 120 H Random Glucose Calcium Urine Color Urine Appearance Urine pH Ur Specific Jay Urine Protein Urine Glucose (UA) Urine Ketones Urine Blood Urine Nitrite Ur Leukocyte Esterase Urine RBC Urine WBC Ur Squamous Epith Cells Urine Bacteria Hyaline Casts Urine Opiates Screen Ur Buprenorphine Scrn Ur Oxycodone Screen Urine Methadone Screen Urine Fentanyl Screen Ur Barbiturates Screen Ur Phencyclidine Scrn Ur Amphetamines Screen U Benzodiazepines Scrn Urine Cocaine Screen U Marijuana (THC) Screen 09/22/24 09/23/24 09/23/24 19:59 06:52 07:14 Hold Purple Top SEE NOTE D-Dimer High Sensitivty Sodium 137 Potassium 3.8 Chloride 102 Carbon Dioxide 25 Anion Gap 14 BUN 13 Creatinine 0.71 Estim Creat Clear Calc 129.3 Estimated GFR > 60 POC Glucose 203 H 176 H Random Glucose 185 H Calcium 8.3 L Urine Color Urine Appearance Urine pH Ur Specific Jay Urine Protein Urine Glucose (UA) Urine Ketones Urine Blood Urine Nitrite Ur Leukocyte Esterase Urine RBC Urine WBC Ur Squamous Epith Cells Urine Bacteria Hyaline Casts Urine Opiates Screen Ur Buprenorphine Scrn Ur Oxycodone Screen Urine Methadone Screen Urine Fentanyl Screen Ur Barbiturates Screen Ur Phencyclidine Scrn Ur Amphetamines Screen U Benzodiazepines Scrn Urine Cocaine Screen U Marijuana (THC) Screen ECG Interpretation: EKG with underlying sinus rhythm at 96/Min; no significant ST-T changes; normal UT; corrected QT is prolonged. Imaging Radiologist's impression: Impressions Head CT 09/22/24 09:10 IMPRESSION: No acute brain abnormality by CT Electronically signed by: Herson Grimes MD 09/22/2024 09:28 AM EDT Assessment and Plan (1) Acute diastolic (congestive) heart failure: Status: Acute (2) Hypertensive emergency: Status: Acute (3) Cocaine use: Status: Acute Plan Blood pressure levels as much as 201/122 mm Hg upon arrival. Currently improved to 164/90 mm Hg. Uterine screen positive for cocaine and marijuana. High sensitivity troponin is within range. Echocardiogram with LVEF of 55-60%. Moderate diastolic dysfunction. No significant valvular findings. Overall, likely baseline hypertension which could be worsened by cocaine causing diastolic heart failure. IV diuretics. For blood pressure, she is only listed to be on amlodipine. May go up on the dose. Unless any clear contraindications, should be on CHERYL inhibitors or ARB as she also has concurrent diabetes. If still high blood pressure, consider spironolactone. Abstinence from drugs. Procedures Date of Service Date of Service: 09/23/24
--- NOTE | 2024-09-23 11:26 | MHC.CM.PN ---
Pt self-care, lives at home with her mother, father, sister, and nephews. Pts family will transport her home at discharge. New HCP completed with pt, now on file. PCP: Dr. Rebecca Encinas
[2024-09-23 11:53] LABS: Glucose, Whole Blood 185 mg/dL (60-115)
[2024-09-23] MEDS: Butalb/Acetamin/Caff 50/325/40 TABLET 1 TAB PO ×2 (12:10→20:24)
[2024-09-23] MEDS: Enoxaparin Sodium 40 MG/0.4 ML SYRINGE SUBCUT (12:10)
--- NOTE | 2024-09-23 13:06 | P.PNIM_ITS ---
Subjective Subjective Date of Service: 09/23/24 Interval History: seen and examined this morning follow up for uncontrolled high blood pressure, new CHF denies sob, ongoing leg swelling Review of Systems Review of Systems: Yes all other systems are reviewed and are negative Constitutional Constitutional: Denies chills and Denies fever(s) Cardiovascular Cardiovascular: Denies chest pain and Denies palpitations Respiratory Respiratory: Denies cough Endocrine Endocrine: Denies palpitations Physical Exam 2 Vital Signs: Vital Signs: Last Vital Signs Temp 97.5 F 09/23/24 11:53 Pulse 88 09/23/24 11:53 Resp 17 09/23/24 11:53 BP 165/86 H 09/23/24 11:53 Pulse Ox 95 09/23/24 11:53 O2 Del Method Room Air 09/23/24 11:53 O2 Flow Rate 3 09/23/24 04:00 BMI result Body Mass Index 39.1 Const: General: no acute distress, alert and awake Nutritional Appearance: obese Orientation/consciousness: patient oriented x3 Resp: Effort & Inspection: normal respiratory effort, able to speak in complete sentences, no respiratory distress and no use of accessory muscles A uscultation: clear to auscultation bilaterally Cardio: Rate: regular rate GI: Inspection: No distended Palpation (GI): Soft to palpation Neuro: General: patient oriented x3, moves all extremities and CN's II-XI intact bilaterally Extrem: Other: b/l leg edema Objective Data Active Medications Acetaminophen (Acetaminophen 325 Mg Tablet) 650 mg PO Q6H PRN PRN Reason: Pain, Mild 1-3,fever,headache Last Admin: 09/23/24 04:30 Dose: 650 mg Documented By: OLIVER Acetaminophen/Butalbital/Caffeine (Butalb/Acetamin/Caff 50/325/40 Tablet) 1 tab PO Q4H PRN PRN Reason: Headache Last Admin: 09/23/24 12:10 Dose: 1 tab Documented By: NADER Amlodipine Besylate (Amlodipine Besylate 10 Mg Tablet) 10 mg PO DAILY@1999 [facility]; Protocol Last Admin: 09/22/24 17:42 Dose: 10 mg Documented By: NURIA Amoxicillin/Clavulanate Potassium (Amoxicillin/Potassium Clav 875 Mg Tablet) 875 mg PO BID [facility] Stop: 09/23/24 21:01 Last Admin: 09/23/24 08:29 Dose: 875 mg Documented By: NADER Calcium Carbonate (Calcium Carbonate 750 Mg Tab.Chew) 750 mg PO Q4H PRN PRN Reason: Heartburn Doxycycline Monohydrate (Doxycycline Monohydrate 100 Mg Capsule) 100 mg PO BID [facility] Stop: 09/23/24 21:01 Last Admin: 09/23/24 08:29 Dose: 100 mg Documented By: NADER Enoxaparin Sodium (Enoxaparin Sodium 40 Mg/0.4 Ml Syringe) 40 mg SUBCUT Q24H [facility] Last Admin: 09/23/24 12:10 Dose: 40 mg Documented By: NADER Furosemide (Furosemide 40 Mg/4 Ml Vial) 40 mg IVPUSH BID@0900,1800 [facility]; Protocol Last Admin: 09/23/24 08:30 Dose: 40 mg Documented By: NADER Insulin Glargine (Insulin Glargine,Hum.Rec.Anlog 100 Unit/Ml 10 Ml Vial) 25 unit SUBCUT BEDTIME [facility] Last Admin: 09/22/24 20:46 Dose: 25 unit Documented By: OLIVER Insulin Human Lispro (Insulin Lispro 100 Unit/Ml 3 Ml Vial) 0 unit SUBCUT QIDACHS [facility]; Protocol Last Admin: 09/23/24 12:11 Dose: 2 unit Documented By: NADER Loratadine (Loratadine 10 Mg Tablet) 10 mg PO DAILY [facility] Last Admin: 09/23/24 08:29 Dose: 10 mg Documented By: NADER Magnesium Hydroxide (Milk Of Magnesia 30 Ml Oral.Susp) 30 ml PO DAILY PRN PRN Reason: Constipation Melatonin (Melatonin 3 Mg Tablet) 6 mg PO BEDTIME PRN PRN Reason: Insomnia Omeprazole (Omeprazole 20 Mg Capsule.Dr) 20 mg PO DAILY@0630 [facility] Last Admin: 09/23/24 06:15 Dose: 20 mg Documented By: OLIVER Sodium Chloride (0.9 % Sodium Chloride Flush 3 Ml Syringe) 3 ml IVFLUSH QSHIFT [facility] Last Admin: 09/23/24 08:29 Dose: 3 ml Documented By: NADER Sumatriptan Succinate (Sumatriptan Succinate 25 Mg Tablet) 25 mg PO DAILY PRN PRN Reason: Migraine Headache Last Admin: 09/22/24 20:52 Dose: 25 mg Documented By: OLIVER Labs 09/22/24 05:03 09/23/24 06:52 Labs: Laboratory Results - last 24 hr 09/22/24 09/22/24 09/23/24 17:49 19:59 06:52 Hold Purple Top SEE NOTE Anion Gap 14 Estim Creat Clear Calc 129.3 Estimated GFR > 60 POC Glucose 120 H 203 H Random Glucose 185 H Calcium 8.3 L 09/23/24 09/23/24 07:14 11:32 Hold Purple Top Anion Gap Estim Creat Clear Calc Estimated GFR POC Glucose 176 H 185 H Random Glucose Calcium Assessment and Plan (1) Hypertensive emergency: Status: Acute (2) Acute diastolic (congestive) heart failure: Status: Acute Plan 29 yo F with a PMH of type 1 DM, HTN and prior EtOH/Coaine use who presents to the ED with a 1 day history of multiple issues. Her presentation and work up in the ED is concerning for hypertensive emergency with possible underlying CHF/cardiomyopathy. Hypertensive emergency Presented with BP > 200/100 with shortness of breath and chest pain pt reports compliance with home norvasc 5mg, dose increased to 10mg BP improving but still elevated, start lisinopril 10mg, titrate prn New-onset CHF pt with orthopnea, pnd, LE edema with elevated BNP and CXR showing fluid, low- normal SpO2 of 90% echo with grade 2 diastolic dysfunction Continue IV lasix 40mg bid cardiology following DM type I no gap, pH not acidotic continue lantus + sliding scale Morbid obesity outpatient weight weight mgmt follow up EtOH/Cocaine use reports prior heavy use, but last 1 year reports intermittent usage explained to her the connection between alcohol/cocaine and heart health offered addiction med / recovery services, which she declines Recent tooth infection on augmentin/doxy - last day 09/23 Full Code DVT pptx - Lovenox Patient requires ongoing inpatient stay for management of hypertensive emergency and persistently uncontrolled blood pressure, new onset CHF/cardiomyopathy with borderline low normal SpO2 requiring close blood pressure monitoring and up titration of medications along with IV diuresis and cardiology evaluation. Quality Stroke Does the patient have a stroke diagnosis?: No VTE Prior VTE?: No VTE Risk Level:: Medical - moderate - high VTE Device Contraindication: N/A - Device Ordered VTE Drug Contraindication: N/A - Med Ordered
[2024-09-23 13:57] LABS: Estimated Average Glucose 203 mg/dL; Hemoglobin A1C 216.0008 umol/L; Hemoglobin A1c % 8.7 % (<6.0)
[2024-09-23] MEDS: Losartan Potassium 25 MG TABLET PO (15:20)
--- NOTE | 2024-09-23 15:25 | PC.NURSE ---
bp 198/96, right arm, large cuff, pa collins notified, losartan 25 mg admin po per pa orders, patient denies any cp, dizziness or back pain
[2024-09-23 15:34] LABS: Glucose, Whole Blood 171 mg/dL (60-115)
[2024-09-23 20:09] LABS: Glucose, Whole Blood 381 mg/dL (60-115)
[2024-09-23] MEDS: Melatonin 3 MG TABLET 6 MG PO (20:22)
[2024-09-23] MEDS: amLODIPine Besylate 10 MG TABLET PO (20:24)
[2024-09-23] MEDS: Insulin Glargine,Hum.rec.anlog 100 UNIT/ML 10 ML VIAL 25 UNIT SUBCUT (20:25)
[2024-09-23 22:39] LABS: Glucose, Whole Blood 327 mg/dL (60-115)
[2024-09-24] MEDS: Acetaminophen 325 MG TABLET 650 MG PO ×2 (02:49→14:20)
[2024-09-24] MEDS: 0.9 % Sodium Chloride Flush 3 ML SYRINGE IVFLUSH ×3 (02:51→17:31)
[2024-09-24 02:57] VITALS: BP 162/81; PULSE 87; RESP 18; TEMP 36.4; O2SAT 91
[2024-09-24] MEDS: Omeprazole 20 MG CAPSULE.DR PO (05:52)
[2024-09-24 07:07] LABS: Glucose, Whole Blood 171 mg/dL (60-115)
[2024-09-24 07:38] VITALS: BP 180/93; PULSE 79; RESP 18; TEMP 36.1; O2SAT 94
[2024-09-24 07:42] LABS: Anion Gap 12 (12-20); Blood Urea Nitrogen 12 mg/dL (9-16); Calcium 8.1 mg/dL (8.4-10.2); Carbon Dioxide 28 mmol/L (22-29); Chloride 101 mmol/L (96-108); Estimated Glomerular Filt Rate > 60; Glucose Random 187 mg/dL (60-115); Potassium 3.5 mmol/L (3.3-5.1); Sodium 137 mmol/L (135-145)
[2024-09-24] MEDS: Insulin Lispro 100 UNIT/ML 3 ML VIAL SUBCUT ×3 (08:03→16:52)
[2024-09-24] MEDS: Loratadine 10 MG TABLET PO (08:04)
[2024-09-24] MEDS: Furosemide 40 MG/4 ML VIAL IVPUSH ×2 (08:04→17:31)
[2024-09-24] MEDS: Losartan Potassium 25 MG TABLET PO (08:04)
[2024-09-24 08:31] VITALS: O2SAT 97
--- NOTE | 2024-09-24 10:01 | PM.PNCARD ---
Subjective Subjective Date of Service: 09/24/24 Interval history: Patient states that she is feeling better. Improved from the time of admission. Shortness of breath is getting better. Leg swelling is also improving. Review of Systems Review of Systems Yes all other systems are reviewed and are negative Constitutional: Reports as per HPI and Reports no additional constitutional complaints Eyes: Reports as per HPI and Denies no additional eye complaints Denies system reviewed and no additional complaints, except as documented and Reports as per HPI Cardiovascular: Reports as per HPI, Reports no additional cardiovascular complaints, Denies acrocyanosis, Denies cool extremities, Denies chest pain, Denies leg edema, Denies lightheadedness, Denies palpitations and Denies dyspnea Respiratory: Reports as per HPI, Denies no additional respiratory complaints and Denies dyspnea Gastrointestinal: Reports as per HPI and Denies no additional gastrointestinal complaints Genitourinary: Reports as per HPI Musculoskeletal: Reports no additional musculoskeletal complaints and Reports as per HPI Skin/Breast: Reports system reviewed and no additional complaints, except as docu Reports system reviewed and no additional complaints, except as documented and Reports as per HPI Psychiatric: Reports no additional psychiatric complaints and Reports as per HPI Endocrine: Reports no additional endocrine complaints, Reports as per HPI and Denies palpitations Hematologic/Lymphatic: Reports no additional hematologic/lymphatic complaints and Reports as per HPI Allergic/Immunologic: Reports no additional allergic/immunologic complaints and Reports as per HPI Physical Exam Vital Signs: Last Vital Signs Temp 97.0 F 09/24/24 07:38 Pulse 79 09/24/24 07:38 Resp 18 09/24/24 07:38 BP 180/93 H 09/24/24 07:38 Pulse Ox 97 09/24/24 08:31 O2 Del Method Room Air 09/24/24 08:31 O2 Flow Rate 4.5 09/24/24 07:38 BMI result Body Mass Index 39.1 Const General: comfortable and no acute distress Orientation/consciousness: patient oriented x3 HEENT Other: Unremarkable Head: Yes normal to inspection Neck Neck: Yes normal visual inspection Chest Chest palpation & inspection: normal inspection of the chest Resp Auscultation: clear to auscultation bilaterally Cardio Palpation: normal PMI Heart sounds: S1 normal heart sound present, S2 normal heart sound present, no gallops, no murmurs and no rubs GI Palpation (GI): Soft to palpation Back/Spine/Pelvis Other: unremarkable Skin General skin exam: no rashes or lesions noted Neuro General: patient oriented x3 Extrem Other: 1+ edema General: Yes normal to inspection Psych Mental Status: mental status grossly normal Objective Labs and Meds 09/22/24 05:03 09/24/24 06:53 Lab results: Laboratory Results - last 24 hr 09/23/24 09/23/24 09/23/24 06:52 11:32 15:24 Sodium Potassium Chloride Carbon Dioxide Anion Gap BUN Creatinine Estim Creat Clear Calc Estimated GFR POC Glucose 185 H 171 H Random Glucose Estimat Average Glucose 203 Hemoglobin A1c % 8.7 H Calcium 09/23/24 09/23/24 09/24/24 20:05 22:34 06:53 Sodium 137 Potassium 3.5 Chloride 101 Carbon Dioxide 28 Anion Gap 12 BUN 12 Creatinine 0.74 Estim Creat Clear Calc 124.0 Estimated GFR > 60 POC Glucose 381 H* 327 H Random Glucose 187 H Estimat Average Glucose Hemoglobin A1c % Calcium 8.1 L 09/24/24 06:57 Sodium Potassium Chloride Carbon Dioxide Anion Gap BUN Creatinine Estim Creat Clear Calc Estimated GFR POC Glucose 171 H Random Glucose Estimat Average Glucose Hemoglobin A1c % Calcium Progress Note: A&P Assessment and plan (1) Acute diastolic (congestive) heart failure: Status: Acute (2) Hypertensive emergency: Status: Acute (3) Cocaine use: Status: Acute Plan Initial blood pressure was as much as 201/122 mm Hg. Currently, it is improving but still quite high. Today morning was 180/93 mm Hg. Uterine screen positive for cocaine and marijuana. High sensitivity troponin is within range. Echocardiogram with LVEF of 55-60%. Moderate diastolic dysfunction. No significant valvular findings. Overall, suspect that she has got poorly controlled hypertension at baseline and it could be worse because of cocaine use. That could cause congestive heart failure. We have increased the dose of amlodipine. Losartan has been started per patient preference as she stated that lisinopril intolerance is common in her family where everybody had cough with the medication. We can go up on the dosing as blood pressure is quite high. Intravenous diuretics possibly for another day or so. If blood pressure still stays high, other options would be to add spironolactone and finally beta-blockers. We discussed at length about abstinence from cigarettes, alcohol and drugs. We also discussed at length about optimal diabetes management as the hemoglobin A1c is quite high at 8.7%. She understands that. According to her, she had insurance issues and hence lost follow-up with many of her doctors but now she is trying to reestablish. Encouraged that she establishes follow-up as necessary. She also has significant proteinuria and consider discussing with Nephrology. Discussed with Elaine Wong. Time Spent With Patient Time: Total time managing care of this patient today ____ minutes. Progress Note: Quality Stroke Does the patient have a stroke diagnosis?: No Procedures Date of Service Date of Service: 09/24/24
[2024-09-24] MEDS: Losartan Potassium 50 MG TABLET PO (10:53)
[2024-09-24] MEDS: Butalb/Acetamin/Caff 50/325/40 TABLET 1 TAB PO ×2 (10:56→20:17)
[2024-09-24 11:29] LABS: Glucose, Whole Blood 228 mg/dL (60-115)
[2024-09-24 11:32] VITALS: BP 159/89; PULSE 90; RESP 18; TEMP 36.3; O2SAT 99
[2024-09-24] MEDS: Enoxaparin Sodium 40 MG/0.4 ML SYRINGE SUBCUT (11:42)
--- NOTE | 2024-09-24 13:09 | P.PNIM_ITS ---
Subjective Subjective Date of Service: 09/24/24 Interval History: Seen and examined this morning Follow-up for CHF, uncontrolled hypertension Was weaned off of oxygen onto room air today, denies shortness of breath Leg edema improving. Blood pressure still elevated Review of Systems Review of Systems: Yes all other systems are reviewed and are negative Constitutional Constitutional: Denies chills and Denies fever(s) Cardiovascular Cardiovascular: Denies chest pain, Denies palpitations and Denies dyspnea Respiratory Respiratory: Denies cough and Denies dyspnea Endocrine Endocrine: Denies palpitations Physical Exam 2 Vital Signs: Vital Signs: Last Vital Signs Temp 97.3 F 09/24/24 11:32 Pulse 90 09/24/24 11:32 Resp 18 09/24/24 11:32 BP 159/89 H 09/24/24 11:32 Pulse Ox 99 09/24/24 11:32 O2 Del Method Room Air 09/24/24 11:32 O2 Flow Rate 4.5 09/24/24 07:38 BMI result Body Mass Index 39.1 Const: General: cooperative, comfortable, no acute distress, alert and awake Nutritional Appearance: obese Orientation/consciousness: patient oriented x3 Resp: Effort & Inspection: normal respiratory effort, able to speak in complete sentences, no respiratory distress and no use of accessory muscles A uscultation: clear to auscultation bilaterally Cardio: Rate: regular rate GI: Inspection: No distended Palpation (GI): Soft to palpation Neuro: General: patient oriented x3, moves all extremities and CN's II-XI intact bilaterally Extrem: Other: b/l leg edema Objective Data Active Medications Acetaminophen (Acetaminophen 325 Mg Tablet) 650 mg PO Q6H PRN PRN Reason: Pain, Mild 1-3,fever,headache Last Admin: 09/24/24 02:49 Dose: 650 mg Documented By: ERNIE Acetaminophen/Butalbital/Caffeine (Butalb/Acetamin/Caff 50/325/40 Tablet) 1 tab PO Q4H PRN PRN Reason: Headache Last Admin: 09/24/24 10:56 Dose: 1 tab Documented By: CHRIS Amlodipine Besylate (Amlodipine Besylate 10 Mg Tablet) 10 mg PO DAILY@1999 [facility]; Protocol Last Admin: 09/23/24 20:24 Dose: 10 mg Documented By: ERNIE Calcium Carbonate (Calcium Carbonate 750 Mg Tab.Chew) 750 mg PO Q4H PRN PRN Reason: Heartburn Enoxaparin Sodium (Enoxaparin Sodium 40 Mg/0.4 Ml Syringe) 40 mg SUBCUT Q24H [facility] Last Admin: 09/24/24 11:42 Dose: 40 mg Documented By: CHRIS Furosemide (Furosemide 40 Mg/4 Ml Vial) 40 mg IVPUSH BID@0900,1800 [facility]; Protocol Last Admin: 09/24/24 08:04 Dose: 40 mg Documented By: CHRIS Insulin Glargine (Insulin Glargine,Hum.Rec.Anlog 100 Unit/Ml 10 Ml Vial) 25 unit SUBCUT BEDTIME [facility] Last Admin: 09/23/24 20:25 Dose: 25 unit Documented By: ERNIE Insulin Human Lispro (Insulin Lispro 100 Unit/Ml 3 Ml Vial) 0 unit SUBCUT QIDACHS [facility]; Protocol Last Admin: 09/24/24 11:42 Dose: 4 unit Documented By: CHRIS Loratadine (Loratadine 10 Mg Tablet) 10 mg PO DAILY [facility] Last Admin: 09/24/24 08:04 Dose: 10 mg Documented By: CHRIS Losartan Potassium (Losartan Potassium 50 Mg Tablet) 100 mg PO DAILY [facility]; Protocol Magnesium Hydroxide (Milk Of Magnesia 30 Ml Oral.Susp) 30 ml PO DAILY PRN PRN Reason: Constipation Melatonin (Melatonin 3 Mg Tablet) 6 mg PO BEDTIME PRN PRN Reason: Insomnia Last Admin: 09/23/24 20:22 Dose: 6 mg Documented By: ERNIE Omeprazole (Omeprazole 20 Mg Capsule.) 20 mg PO DAILY@0630 [facility] Last Admin: 09/24/24 05:52 Dose: 20 mg Documented By: ERNIE Sodium Chloride (0.9 % Sodium Chloride Flush 3 Ml Syringe) 3 ml IVFLUSH QSHIFT [facility] Last Admin: 09/24/24 08:04 Dose: 3 ml Documented By: CHRIS Sumatriptan Succinate (Sumatriptan Succinate 25 Mg Tablet) 25 mg PO DAILY PRN PRN Reason: Migraine Headache Last Admin: 09/22/24 20:52 Dose: 25 mg Documented By: RAFITASU Labs 09/22/24 05:03 09/24/24 06:53 Labs: Laboratory Results - last 24 hr 09/23/24 09/23/24 09/23/24 06:52 15:24 20:05 Anion Gap Estim Creat Clear Calc Estimated GFR POC Glucose 171 H 381 H* Random Glucose Estimat Average Glucose 203 Hemoglobin A1c % 8.7 H Calcium 09/23/24 09/24/24 09/24/24 22:34 06:53 06:57 Anion Gap 12 Estim Creat Clear Calc 124.0 Estimated GFR > 60 POC Glucose 327 H 171 H Random Glucose 187 H Estimat Average Glucose Hemoglobin A1c % Calcium 8.1 L 09/24/24 11:23 Anion Gap Estim Creat Clear Calc Estimated GFR POC Glucose 228 H Random Glucose Estimat Average Glucose Hemoglobin A1c % Calcium Assessment and Plan (1) Hypertensive emergency: Status: Acute (2) Acute diastolic (congestive) heart failure: Status: Acute (3) Type 1 diabetes: Status: Acute (4) Cocaine use: Status: Acute Plan 29 yo F with a PMH of type 1 DM, HTN and prior EtOH/Coaine use who presents to the ED with a 1 day history of multiple issues. Her presentation and work up in the ED is concerning for hypertensive emergency with possible underlying CHF/cardiomyopathy. Hypertensive emergency Presented with BP > 200/100 with shortness of breath and chest pain pt reports compliance with home norvasc 5mg, dose increased to 10mg BP improving but still elevated, patient did not not want lisinopril due to family history of cough side effect to lisinopril, therefore started on losartan BP remains elevated, we will titrate losartan to 100 mg daily as per Cardiology recommendation Outpatient follow-up with Nephrology due to proteinuria-can pursue workup for secondary causes of hypertension as outpatient New-onset CHF pt with orthopnea, pnd, LE edema with elevated BNP and CXR showing fluid echo with grade 2 diastolic dysfunction Continue IV lasix 40mg bid cardiology following, likely transitioned to oral diuretics in a.m. Good urine output thus far, negative nearly 3 L weaned off supplemental oxygen DM type I no gap, pH not acidotic continue lantus + sliding scale Morbid obesity outpatient weight weight mgmt follow up EtOH/Cocaine use reports prior heavy use, but last 1 year reports intermittent usage explained to her the connection between alcohol/cocaine and heart health offered addiction med / recovery services, which she declines Recent tooth infection on augmentin/doxy - last day 09/23. completed course Full Code DVT pptx - Lovenox Patient requires ongoing inpatient stay for management of hypertensive emergency and persistently uncontrolled blood pressure, new onset CHF/cardiomyopathy with borderline low normal SpO2 requiring close blood pressure monitoring and up titration of medications along with IV diuresis and cardiology evaluation. Quality Stroke Does the patient have a stroke diagnosis?: No VTE Prior VTE?: No VTE Risk Level:: Medical - moderate - high VTE Device Contraindication: N/A - Device Ordered VTE Drug Contraindication: N/A - Med Ordered
--- NOTE | 2024-09-24 15:02 | MHC.CM.PN ---
Per EMR review, pt is not ready to DC, she requires ongoing care for uncontrolled BP and CHF. DCP: home with family.
--- NOTE | 2024-09-24 15:30 | P.CONNP_ITS ---
History of Present Illness Reason for Consult Consult date: 09/24/24 Reason for consult: HTN Chief Complaint Chief complaint: sob, chest aleksandar, leg swelling History of Present Illness Narrative: 29-year-old female with type 1 diabetes, hypertension and prior alcohol/cocaine use who presents to [facility] ER with lower extremity swelling, orthopnea over the last 2 weeks with associated PND with cough. She reports exertional dyspnea around the same time. She reports she checked her blood pressure which was noted to be 214/140 at home. Due to these symptoms, the patient presented to the emergency room. she has been on Norvasc 5 mg daily for about 3 months. She reports compliance with her medications. Of note, the patient's urine drug screen was positive for cocaine and marijuana. She reports that previously she was a heavy cocaine user in conjunction with her alcohol use. However for about the last 1 year she has significantly cut back on her alcohol use drinking only once or twice a month. She reports that her cocaine use prior to this most recent 1 was ?months ago?. In the emergency room the patient was noted to have blood pressure readings over 200/100. She was treated with 0.1 mg of clonidine. Further workup which included chest imaging showed interstitial prominence. Her BNP was elevated to 500. She had initial crackles on exam and was noted to have 2+ pitting edema. She was also noted to have borderline hypoxia with an SpO2 of 90% on room air. She was admitted for further treatment of hypertensive urgency and possible new onset CHF/cardiomyopathy. Nephrology has been consulted to assist in her clinical care during her current hospital stay Review of Systems Review of Systems Yes all other systems are reviewed and are negative [facility] Family History Family History (Updated 09/23/24 @ 09:20 by Nirmal Gunderson MD) Father Hypertension Social History Social History Household Members: Family Housing: House Do you presently have visiting nurse or other home services: No Alcohol intake: current Alcohol intake frequency: holidays/special occasions only Patient Tobacco Use Status: Never used Tobacco Substance Use Type: Marijuana service: No Meds Allergies Allergy/AdvReac Type Severity Reaction Status Date / Time Sulfa (Sulfonamide Allergy Unknown HIVES Verified 09/22/24 04:56 Antibiotics) [SULFA (SULFONAMIDE ANTIBIOTICS)] clindamycin Allergy Hives Verified 09/22/24 04:56 fish derived [fish] Allergy Anaphylaxis Verified 09/22/24 04:56 Active Medications: Current Medications Acetaminophen (Acetaminophen 325 Mg Tablet) 650 mg PO Q6H PRN PRN Reason: Pain, Mild 1-3,fever,headache Last Admin: 09/24/24 14:20 Dose: 650 mg Acetaminophen/Butalbital/Caffeine (Butalb/Acetamin/Caff 50/325/40 Tablet) 1 tab PO Q4H PRN PRN Reason: Headache Last Admin: 09/24/24 10:56 Dose: 1 tab Amlodipine Besylate (Amlodipine Besylate 10 Mg Tablet) 10 mg PO DAILY@2000 [facility]; Protocol Last Admin: 09/23/24 20:24 Dose: 10 mg Calcium Carbonate (Calcium Carbonate 750 Mg Tab.Chew) 750 mg PO Q4H PRN PRN Reason: Heartburn Enoxaparin Sodium (Enoxaparin Sodium 40 Mg/0.4 Ml Syringe) 40 mg SUBCUT Q24H [facility] Last Admin: 09/24/24 11:42 Dose: 40 mg Furosemide (Furosemide 40 Mg/4 Ml Vial) 40 mg IVPUSH BID@0900,1800 [facility]; Protocol Last Admin: 09/24/24 08:04 Dose: 40 mg Insulin Glargine (Insulin Glargine,Hum.Rec.Anlog 100 Unit/Ml 10 Ml Vial) 25 unit SUBCUT BEDTIME [facility] Last Admin: 09/23/24 20:25 Dose: 25 unit Insulin Human Lispro (Insulin Lispro 100 Unit/Ml 3 Ml Vial) 0 unit SUBCUT QIDACHS [facility]; Protocol Last Admin: 09/24/24 11:42 Dose: 4 unit Loratadine (Loratadine 10 Mg Tablet) 10 mg PO DAILY [facility] Last Admin: 09/24/24 08:04 Dose: 10 mg Losartan Potassium (Losartan Potassium 50 Mg Tablet) 100 mg PO DAILY [facility]; Protocol Magnesium Hydroxide (Milk Of Magnesia 30 Ml Oral.Susp) 30 ml PO DAILY PRN PRN Reason: Constipation Melatonin (Melatonin 3 Mg Tablet) 6 mg PO BEDTIME PRN PRN Reason: Insomnia Last Admin: 09/23/24 20:22 Dose: 6 mg Omeprazole (Omeprazole 20 Mg Capsule.Dr) 20 mg PO DAILY@0630 [facility] Last Admin: 09/24/24 05:52 Dose: 20 mg Sodium Chloride (0.9 % Sodium Chloride Flush 3 Ml Syringe) 3 ml IVFLUSH QSHIFT [facility] Last Admin: 09/24/24 08:04 Dose: 3 ml Sumatriptan Succinate (Sumatriptan Succinate 25 Mg Tablet) 25 mg PO DAILY PRN PRN Reason: Migraine Headache Last Admin: 09/22/24 20:52 Dose: 25 mg Home Medications ?Medication ?Instructions ?Recorded ?Confirmed ?Last Taken ?Type albuterol sulfate 90 mcg/actuation 2 puff inhalation QID PRN wheezing 09/22/24 09/22/24 Unknown History aerosol inhaler (Ventolin HFA) amlodipine 5 mg tablet 5 mg PO DAILY 09/22/24 09/22/24 09/21/24 History amoxicillin 500 mg capsule 500 mg PO Q6H 09/22/24 09/22/24 09/21/24 History doxycycline hyclate 100 mg capsule 100 mg PO BID 09/22/24 09/22/24 09/21/24 History ibuprofen 800 mg tablet 800 mg PO Q8H PRN pain 09/22/24 09/22/24 Unknown History insulin glargine 100 unit/mL (3 25 unit subcut BEDTIME 09/22/24 09/22/24 09/21/24 History mL) subcutaneous pen (Lantus Solostar U-100 Insulin) loratadine 10 mg tablet 10 mg PO DAILY 09/22/24 09/22/24 09/21/24 History omeprazole 20 mg capsule,delayed 20 mg PO DAILY@0630 09/22/24 09/22/24 09/21/24 History release sumatriptan succinate 25 mg tablet 25 mg PO DAILY PRN Migraine 09/22/24 09/22/24 Unknown History Headache Physical Exam Vital Signs: Last Vital Signs Temp 97.3 F 09/24/24 11:32 Pulse 90 09/24/24 11:32 Resp 18 09/24/24 11:32 BP 159/89 H 09/24/24 11:32 Pulse Ox 99 09/24/24 11:32 O2 Del Method Room Air 09/24/24 11:32 O2 Flow Rate 4.5 09/24/24 07:38 BMI result Body Mass Index 39.1 Const General: comfortable and no acute distress Orientation/consciousness: patient oriented x3 HEENT Head: Yes normocephalic Mouth: Normal oral and palatal mucosa present Eyes EOM: EOMs intact bilaterally Neck Neck: Yes supple Resp Auscultation: clear to auscultation bilaterally Cardio Jugular venous distension: no JVD Rate: regular rate GI Palpation (GI): Soft to palpation Auscultation: normal bowel sounds General: Yes no CVA tenderness Back/Spine/Pelvis Back: no CVA tenderness Skin General skin exam: no rashes or lesions noted Neuro General: patient oriented x3 and moves all extremities Results Lab Results 09/22/24 05:03 09/24/24 06:53 Lab results: Chemistry 09/22/24 09/23/24 09/24/24 05:03 06:52 06:53 Sodium 138 137 137 Potassium 3.4 3.8 3.5 Carbon Dioxide 19 L 25 28 BUN 11 13 12 Creatinine 0.73 0.71 0.74 Calcium 8.5 D 8.3 L 8.1 L Hematology 09/22/24 05:03 WBC 9.5 Hgb 12.0 Plt Count 461 H Urinalysis 09/22/24 09:27 Urine Color Yellow Urine Appearance Clear Urine pH 6.5 Ur Specific [place] 1.015 Urine Protein >=1000 (4+) H Urine Glucose (UA) 250 H Urine Ketones Trace Urine Blood Small (1+) H Urine Nitrite Negative Ur Leukocyte Esterase Negative Urine RBC 6-10 H Urine WBC 0-5 Ur Squamous Epith Cells 0-2 Hyaline Casts 3-5 Assessment and Plan (1) Hypertensive emergency: Status: Acute (2) 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: Status: Acute Plan Type 1 DM with diabetic nephropathy Has Diastolic dysfunction by ECHO Has significant proteinuria & retinopathy Started on losartan. Renal function normal Needs to abstain from cocaine Shall maximize losartan if renal fn/K permits If more medications are needed for BP control, will start labetalol If she develops edema from Amlodipine( has sig protein)-shall D/C it Shall follow up in office in 2 weeks with me when D/Miko Procedures Date of Service Date of Service: 09/24/24
[2024-09-24 15:36] LABS: Glucose, Whole Blood 302 mg/dL (60-115)
[2024-09-24 15:54] VITALS: BP 171/92; PULSE 93; RESP 17; TEMP 36.2; O2SAT 94
[2024-09-24 19:50] VITALS: BP 134/81; PULSE 95; RESP 20; TEMP 36.5; O2SAT 96
[2024-09-24] MEDS: amLODIPine Besylate 10 MG TABLET PO (20:17)
[2024-09-24] MEDS: Insulin Glargine,Hum.rec.anlog 100 UNIT/ML 10 ML VIAL 25 UNIT SUBCUT (20:17)
[2024-09-24] MEDS: Melatonin 3 MG TABLET 6 MG PO (20:17)
[2024-09-24 20:47] LABS: Glucose, Whole Blood 464 mg/dL (60-115)
[2024-09-24] MEDS: Insulin Regular, Human 100 UNIT/ML 10 ML VIAL 10 UNIT IVPUSH (20:50)
[2024-09-24 22:02] LABS: Glucose, Whole Blood 185 mg/dL (60-115)
[2024-09-25] VITALS: BP 138/81; PULSE 88; RESP 18; TEMP 36.6; O2SAT 94
[2024-09-25 04:00] VITALS: BP 143/97; PULSE 86; RESP 18; TEMP 36.1; O2SAT 93
[2024-09-25] MEDS: Omeprazole 20 MG CAPSULE.DR PO (05:47)
[2024-09-25 07:07] LABS: Anion Gap 13 (12-20); Blood Urea Nitrogen 14 mg/dL (9-16); Calcium 7.9 mg/dL (8.4-10.2); Carbon Dioxide 25 mmol/L (22-29); Chloride 103 mmol/L (96-108); Creatinine Clr Calc Pharmacy 122.4; Estimated Glomerular Filt Rate > 60; Glucose Random 159 mg/dL (60-115); Potassium 3.5 mmol/L (3.3-5.1); Sodium 137 mmol/L (135-145)
[2024-09-25 07:50] VITALS: BP 124/84; PULSE 73; RESP 18; TEMP 36.1; O2SAT 95
[2024-09-25 07:50] LABS: Glucose, Whole Blood 168 mg/dL (60-115)
[2024-09-25] MEDS: Losartan Potassium 50 MG TABLET 100 MG PO (07:59)
[2024-09-25] MEDS: Acetaminophen 325 MG TABLET 650 MG PO (07:59)
[2024-09-25] MEDS: Loratadine 10 MG TABLET PO (07:59)
[2024-09-25] MEDS: 0.9 % Sodium Chloride Flush 3 ML SYRINGE IVFLUSH (08:00)
[2024-09-25] MEDS: Insulin Lispro 100 UNIT/ML 3 ML VIAL SUBCUT ×2 (08:03→12:16)
[2024-09-25] MEDS: Furosemide 40 MG/4 ML VIAL IVPUSH (08:03)
--- NOTE | 2024-09-25 11:40 | P.PNIM_ITS ---
Subjective Subjective Date of Service: 09/25/24 Interval History: Follow-up for CHF, uncontrolled hypertension Was weaned off of oxygen onto room air today, denies shortness of breath Leg edema improving. Blood pressure still elevated Review of Systems Review of Systems: Yes all other systems are reviewed and are negative Constitutional Constitutional: Denies chills and Denies fever(s) Cardiovascular Cardiovascular: Denies chest pain, Denies palpitations and Denies dyspnea Respiratory Respiratory: Denies cough and Denies dyspnea Endocrine Endocrine: Denies palpitations Physical Exam 2 Vital Signs: Vital Signs: Last Vital Signs Temp 97.0 F 09/25/24 07:50 Pulse 73 09/25/24 07:50 Resp 18 09/25/24 07:50 BP 124/84 09/25/24 07:50 Pulse Ox 95 09/25/24 07:50 O2 Del Method Nasal Cannula 09/25/24 07:50 O2 Flow Rate 3 09/25/24 07:50 BMI result Body Mass Index 39.1 Appearing in no acute distress lung sounds are clear to auscultation heart regular rate rhythm, clear S1, S2 positive bowel sounds, abdomen is soft, nontender neuro patient is alert x3, no focal deficits Objective Data Active Medications Acetaminophen (Acetaminophen 325 Mg Tablet) 650 mg PO Q6H PRN PRN Reason: Pain, Mild 1-3,fever,headache Last Admin: 09/25/24 07:59 Dose: 650 mg Documented By: NASRIN Acetaminophen/Butalbital/Caffeine (Butalb/Acetamin/Caff 50/325/40 Tablet) 1 tab PO Q4H PRN PRN Reason: Headache Last Admin: 09/24/24 20:17 Dose: 1 tab Documented By: ERNIE Amlodipine Besylate (Amlodipine Besylate 10 Mg Tablet) 10 mg PO DAILY@1999 [facility]; Protocol Last Admin: 09/24/24 20:17 Dose: 10 mg Documented By: ERNIE Calcium Carbonate (Calcium Carbonate 750 Mg Tab.Chew) 750 mg PO Q4H PRN PRN Reason: Heartburn Enoxaparin Sodium (Enoxaparin Sodium 40 Mg/0.4 Ml Syringe) 40 mg SUBCUT Q24H [facility] Last Admin: 09/24/24 11:42 Dose: 40 mg Documented By: CHRIS Furosemide (Furosemide 40 Mg/4 Ml Vial) 40 mg IVPUSH BID@0900,1800 [facility]; Protocol Last Admin: 09/25/24 08:03 Dose: 40 mg Documented By: NASRIN Insulin Glargine (Insulin Glargine,Hum.Rec.Anlog 100 Unit/Ml 10 Ml Vial) 25 unit SUBCUT BEDTIME [facility] Last Admin: 09/24/24 20:17 Dose: 25 unit Documented By: ERNIE Insulin Human Lispro (Insulin Lispro 100 Unit/Ml 3 Ml Vial) 0 unit SUBCUT QIDACHS [facility]; Protocol Last Admin: 09/25/24 08:03 Dose: 2 unit Documented By: NASRIN Loratadine (Loratadine 10 Mg Tablet) 10 mg PO DAILY [facility] Last Admin: 09/25/24 07:59 Dose: 10 mg Documented By: NASRIN Losartan Potassium (Losartan Potassium 50 Mg Tablet) 100 mg PO DAILY [facility]; Protocol Last Admin: 09/25/24 07:59 Dose: 100 mg Documented By: NASRIN Magnesium Hydroxide (Milk Of Magnesia 30 Ml Oral.Susp) 30 ml PO DAILY PRN PRN Reason: Constipation Melatonin (Melatonin 3 Mg Tablet) 6 mg PO BEDTIME PRN PRN Reason: Insomnia Last Admin: 09/24/24 20:17 Dose: 6 mg Documented By: ERNIE Omeprazole (Omeprazole 20 Mg Capsule.Dr) 20 mg PO DAILY@0630 [facility] Last Admin: 09/25/24 05:47 Dose: 20 mg Documented By: ERNIE Sodium Chloride (0.9 % Sodium Chloride Flush 3 Ml Syringe) 3 ml IVFSH [facility] Last Admin: 09/25/24 08:00 Dose: 3 ml Documented By: NASRIN Sumatriptan Succinate (Sumatriptan Succinate 25 Mg Tablet) 25 mg PO DAILY PRN PRN Reason: Migraine Headache Last Admin: 09/22/24 20:52 Dose: 25 mg Documented By: CHANDLERTSSU Labs 09/22/24 05:03 09/25/24 06:40 Labs: Laboratory Results - last 24 hr 09/24/24 09/24/24 09/24/24 15:33 20:13 21:57 Anion Gap Estim Creat Clear Calc Estimated GFR POC Glucose 302 H 464 H* 185 H Random Glucose Calcium 09/25/24 09/25/24 06:40 07:45 Anion Gap 13 Estim Creat Clear Calc 122.4 Estimated GFR > 60 POC Glucose 168 H Random Glucose 159 H Calcium 7.9 L Assessment and Plan (1) Hypertensive emergency: Status: Acute (2) Acute diastolic (congestive) heart failure: Status: Acute (3) Type 1 diabetes: Status: Acute (4) Cocaine use: Status: Acute Plan 29 yo F with a PMH of type 1 DM, HTN and prior EtOH/Coaine use who presents to the ED with a 1 day history of multiple issues. Her presentation and work up in the ED is concerning for hypertensive emergency with possible underlying CHF/cardiomyopathy. Hypertensive emergency Presented with BP > 200/100 with shortness of breath and chest pain pt reports compliance with home norvasc 5mg, dose increased to 10mg BP improving but still elevated, patient did not not want lisinopril due to family history of cough side effect to lisinopril, therefore started on losartan BP remains elevated, we will titrate losartan to 100 mg daily as per Cardiology recommendation Outpatient follow-up with Nephrology due to proteinuria-can pursue workup for secondary causes of hypertension as outpatient New-onset CHF pt with orthopnea, pnd, LE edema with elevated BNP and CXR showing fluid echo with grade 2 diastolic dysfunction Continue IV lasix 40mg bid cardiology following, likely transitioned to oral diuretics in a.m. Good urine output thus far, negative nearly 3 L weaned off supplemental oxygen DM type I no gap, pH not acidotic continue lantus + sliding scale Morbid obesity. BMI 39.1 outpatient weight mgmt follow up EtOH/Cocaine use reports prior heavy use, but last 1 year reports intermittent usage explained to her the connection between alcohol/cocaine and heart health offered addiction med / recovery services, which she declines Recent tooth infection on augmentin/doxy - last day 09/23. completed course Full Code DVT pptx - Lovenox Patient requires ongoing inpatient stay for management of hypertensive emergency and persistently uncontrolled blood pressure, new onset CHF/cardiomyopathy with borderline low normal SpO2 requiring close blood pressure monitoring and up titration of medications along with IV diuresis and cardiology evaluation. Quality Stroke Does the patient have a stroke diagnosis?: No VTE Prior VTE?: No VTE Risk Level:: Medical - moderate - high VTE Device Contraindication: N/A - Device Ordered VTE Drug Contraindication: N/A - Med Ordered
[2024-09-25 11:41] LABS: Glucose, Whole Blood 182 mg/dL (60-115)
[2024-09-25 11:59] VITALS: BP 130/90; PULSE 90; RESP 20; TEMP 36.2; O2SAT 100
--- NOTE | 2024-09-25 12:14 | P.DS_ITS ---
DS: Providers Provider Date of Service: 09/25/24 Date of admission: 09/22/24 11:08 Date of discharge: 09/25/24 Primary care physician: Rebecca Encinas MD Consults: 09/22/24 11:10 Consult to Cardiology Routine Consulting Provider: [facility] Reason for consultation: hypertensive urgency, endorsing CHF symptoms 09/24/24 10:37 Consult to Nephrology Routine Consulting Provider: [facility] Reason for consultation: proteinuria Has provider been notified: Yes DS: Diagnosis Discharge Diagnosis (1) Hypertensive emergency: Status: Acute (2) Acute diastolic (congestive) heart failure: Status: Acute (3) Type 1 diabetes: Status: Acute (4) Cocaine use: Status: Acute DS: Summary Hospital Course Hospital Course: History and physical as per admitting provider. The patient is a 29-year-old female with a medical history of type 1 diabetes, hypertension and prior alcohol/cocaine use who presents to [facility] ED with multiple complaints. The patient reports lower extremity swelling and burning sensation which has progres sively worsened over the last 2 days. She endorses orthopnea over the last 2 weeks with associated PND with cough. She reports exertional dyspnea around the same time. She reports waking up on the day of hospitalization with a headache and visual changes with chest pressure. She reports she checked her blood pressure which was noted to be 214/140 at home. Due to these symptoms, the patient presented to the emergency room. The patient reports that she has been on Norvasc 5 mg daily for about 3 months. She reports compliance with her medications. Of note, the patient's urine drug screen was positive for cocaine and marijuana. She reports that previously she was a heavy cocaine user in conjunction with her alcohol use. However for about the last 1 year she has significantly cut back on her alcohol use drinking only once or twice a month. She reports that her cocaine use prior to this most recent 1 was ?months ago?. In the emergency room the patient was noted to have blood pressure readings over 200/100. She was treated with 0.1 mg of clonidine. Further workup which included chest imaging showed interstitial prominence. Her BNP was elevated to 500. She had initial crackles on exam and was noted to have 2+ pitting edema. She was also noted to have borderline hypoxia with an SpO2 of 90% on room air. Given the constellation of these findings, the patient will be admitted for further treatment of hypertensive urgency and possible new onset CHF/cardiomyopathy. 29-year-old woman treated for hypertensive emergency, new onset congestive heart failure. Patient presented with blood pressure over 200/100 with shortness of breath and chest pain. She did report orthopnea as well. She reported compliance with her 5 mg of Norvasc at home. Her Norvasc was increased to 10 mg and she was also started on losartan 100 mg daily. Blood pressure is now better controlled at this point. Echocardiogram showed grade 2 diastolic dysfunction with normal EF and treated with IV Lasix b.i.d.. Discussed with Cardiology and recommended Lasix 20 mg daily p.r.n., patient should weigh herself daily and if she notices a 3 lb weight gain in 24 hours or increase in edema she should take Lasix. She needs to follow up with Cardiology in the outpatient office as well as Nephrology due to protein urea. She was-2.7 L, has been weaned off oxygen. Diabetes mellitus type 1. No DKA during hospitalization. She should continue her Lantus and sliding scale and check blood sugars before meals and at bedtime. Morbid obesity. BMI 39.1. Weight management ETOH/cocaine use reported previous heavy use but now intermittently. Discussed importance of cessation of alcohol, cocaine in cigarettes. Declined recovery team consultation Recent tooth infection. Completed dose of Augmentin and doxycycline Time Attestation Discharge Coordination Time (in mins): 45 Quality: Safe Use of Opioids Does Pt have an Active Cancer Diagnosis on the Problem List?: No Quality: Stroke Does the patient have a stroke diagnosis?: No Physical Exam Vital Signs: Vital Signs: Last Vital Signs Temp 97.1 F 09/25/24 11:59 Pulse 90 09/25/24 11:59 Resp 20 09/25/24 11:59 BP 130/90 H 09/25/24 11:59 Pulse Ox 100 09/25/24 11:59 O2 Del Method Nasal Cannula 09/25/24 11:59 O2 Flow Rate 2 09/25/24 11:59 BMI result Body Mass Index 39.1 Appearing in no acute distress head is normocephalic atraumatic eyes pupils are PERRLA sclera is anicteric mouth throat mucous membranes are intact and moist neck is supple no lymphadenopathy, no JVD noted lung sounds are clear to auscultation heart regular rate rhythm, clear S1, S2 positive bowel sounds, abdomen is soft, nontender neuro patient is alert x3, no focal deficits DS: Data Data Completed and Pending Labs on day of discharge: Laboratory Results - last 24 hr 09/24/24 09/24/24 09/24/24 15:33 20:13 21:57 Sodium Potassium Chloride Carbon Dioxide Anion Gap BUN Creatinine Estim Creat Clear Calc Estimated GFR POC Glucose 302 H 464 H* 185 H Random Glucose Calcium 09/25/24 09/25/24 09/25/24 06:40 07:45 11:13 Sodium 137 Potassium 3.5 Chloride 103 Carbon Dioxide 25 Anion Gap 13 BUN 14 Creatinine 0.75 Estim Creat Clear Calc 122.4 Estimated GFR > 60 POC Glucose 168 H 182 H Random Glucose 159 H Calcium 7.9 L Discharge Plan Discharge Anticipated Discharge Date/Time: 09/25/24 11:57 Patient Disposition: Home, Self-Care Discharge Diagnosis: Hypertensive urgency Acute diastolic congestive heart failure Referrals: Ramsey Montano MD [Physician] - 1 Week Rebecca Encinas MD [Primary Care Provider] - 1 Week Nirmal Gunderson MD [Physician] - 1 Week Discharge Medications: New losartan 50 mg Tablet 100 mg PO DAILY Qty: 60 0RF Protocol: Hold for SBP< HOLD for SBP < : 90 amlodipine 10 mg Tablet 10 mg PO DAILY@2000 Qty: 30 0RF Protocol: Hold for SBP< HOLD for SBP < : 90 furosemide [Lasix] 20 mg tablet 20 mg PO DAILY PRN (Reason: edema) Qty: 60 0RF Continued ibuprofen 800 mg tablet 800 mg PO Q8H PRN (Reason: pain) sumatriptan succinate 25 mg tablet 25 mg PO DAILY PRN (Reason: Migraine Headache) omeprazole 20 mg capsule,delayed release(DR/EC) 20 mg PO DAILY@0630 insulin glargine [Lantus Solostar U-100 Insulin] 100 unit/mL (3 mL) insulin pen 25 unit subcut BEDTIME albuterol sulfate [Ventolin HFA] 90 mcg/actuation HFA aerosol inhaler 2 puff inhalation QID PRN (Reason: wheezing) loratadine 10 mg Tablet 10 mg PO DAILY insulin aspart U-100 [Novolog FlexPen U-100 Insulin] 100 unit/mL (3 mL) insulin pen 1 sliding scale dose subcut USEASDIRECTD Qty: 15 0RF ondansetron 4 mg tablet,disintegrating 4 mg PO Q8H PRN (Reason: nausea and vomiting) Qty: 10 0RF Discontinued amoxicillin 500 mg capsule 500 mg PO Q6H doxycycline hyclate 100 mg capsule 100 mg PO BID amlodipine 5 mg tablet 5 mg PO DAILY Discharge Orders: Discharge Order (Routine); Ordered 09/25/24 Ordered By: Jazmín Sharma Diet: Advance to usual diet Activity on Discharge: As tolerated Stand Alone Forms: Patient Portal Discharge page Print Language: [place]er Care Plan Goals: Continue checking her blood sugars before meals and at bedtime Continue your insulin sliding scale Take Lasix 20 mg if you notice increased swelling to lower extremities, shortness of breath or 3 LB weight gain in less than 24hrs follow up with cardiology follow with with nephrology for increase in protein in urine Return to the ED for Return of symptoms Health Concerns: Hypertensive urgency Acute diastolic congestive heart failure Plan of Treatment: Follow-up with primary care provider as needed Take all medications as prescribed Assessment: See discharge summary
[2024-09-25] MEDS: Albuterol Sulfate (0.083%) 2.5 MG/3 ML VIAL.NEB INHALE (12:15)
[2024-09-25] MEDS: Enoxaparin Sodium 40 MG/0.4 ML SYRINGE SUBCUT (12:16)
--- NOTE | 2024-09-25 12:50 | MHC.CM.PN ---
PT TO [facility] HOME TODAY VIA FAMILY TRANSPORT
== END 2024-09-25 14:13 | disposition home or self-care (01) | DRG 194 ==
LOC: HO.ED 10:52 → HO.EDOVER 11:15 → HO.IMC 17:08
PROVIDERS: Physician Assistant Medical; Admitting Provider Family Medicine; Emergency Provider Emergency Medicine; PCP Internal Medicine; Visit Provider Nurse Practitioner Acute Care
DX: I11.0 Hypertensive heart disease with heart failure (principal); E10.21 Type 1 diabetes mellitus with diabetic nephropathy; I16.1 Hypertensive emergency; I50.31 Acute diastolic (congestive) heart failure; E66.01 Morbid (severe) obesity due to excess calories; F10.90 Alcohol use, unspecified, uncomplicated; F14.10 Cocaine abuse, uncomplicated; Z68.39 Body mass index [BMI] 39.0-39.9, adult; Z71.3 Dietary counseling and surveillance; Z20.822 Contact with and (suspected) exposure to COVID-19; Z79.4 Long term (current) use of insulin; Z79.899 Other long term (current) drug therapy
CPT/HCPCS: 0241U; 36415; 70450; 71045; 80048; 80307; 81001; 82010; 82947; 83036; 83735; 83880; 84484; 84702; 85025; 85379; 86140; 93005; 93306; 93970; 99285; J0131; J1200; J1650; J1938; J2765

== ENCOUNTER → 2024-09-22 04:57 | Outpatient (BNV) | payer OTHER, SELFPAY | PROVIDERS: Emergency Provider Emergency Medicine; PCP Internal Medicine; Visit Provider Radiology Vascular & Interventional Radiology | DX: I10 Essential (primary) hypertension (principal); R51.9 Headache, unspecified; R22.43 Localized swelling, mass and lump, lower limb, bilateral; R91.8 Other nonspecific abnormal finding of lung field; R06.02 Shortness of breath | CPT/HCPCS: 70450; 71045; 93970 ==

== ENCOUNTER → 2024-09-22 08:33 | Outpatient (BNV) | payer OTHER, SELFPAY | PROVIDERS: Admitting Provider Family Medicine; Emergency Provider Emergency Medicine; PCP Internal Medicine; Visit Provider Internal Medicine | DX: I51.89 Other ill-defined heart diseases (principal); R06.02 Shortness of breath; R03.0 Elevated blood-pressure reading, without diagnosis of hypertension | CPT/HCPCS: 93010; 93306 ==

== ENCOUNTER → 2024-09-22 11:08 | Outpatient (BNV) | payer OTHER, SELFPAY | PROVIDERS: Admitting Provider Family Medicine; Emergency Provider Emergency Medicine; PCP Internal Medicine; Visit Provider Internal Medicine Nephrology | DX: I16.1 Hypertensive emergency (principal); E10.21 Type 1 diabetes mellitus with diabetic nephropathy | CPT/HCPCS: 99223 ==

== ENCOUNTER → 2024-09-22 11:08 | Outpatient (BNV) | payer OTHER, SELFPAY | PROVIDERS: Admitting Provider Family Medicine; Emergency Provider Emergency Medicine; PCP Internal Medicine; Visit Provider Family Medicine | DX: I16.1 Hypertensive emergency (principal); I50.31 Acute diastolic (congestive) heart failure | CPT/HCPCS: 99233 ==

== ENCOUNTER → 2024-09-22 11:08 | Outpatient (BNV) | payer OTHER, SELFPAY | PROVIDERS: Admitting Provider Family Medicine; Emergency Provider Emergency Medicine; PCP Internal Medicine; Visit Provider Internal Medicine | DX: I50.31 Acute diastolic (congestive) heart failure (principal); I16.1 Hypertensive emergency; F14.90 Cocaine use, unspecified, uncomplicated | CPT/HCPCS: 99223 ==

== ENCOUNTER 2024-09-27 12:02 | Emergency (ER) | payer OTHER, SELFPAY ==
[2024-09-27 12:06] VITALS: BP 176/115; PULSE 92; RESP 18; TEMP 36.8; O2SAT 98; BMI 36.3
--- NOTE | 2024-09-27 12:07 | ECG_ITS ---
Test Reason : chest pain Blood Pressure : */* mmHG Vent. Rate : 93 BPM Atrial Rate : 93 BPM P-R Int : 134 ms QRS Dur : 74 ms QT Int : 382 ms P-R-T Axes : 41 75 97 degrees QTcB Int : 474 ms Normal sinus rhythm Nonspecific T wave abnormality Abnormal ECG When compared with ECG of 22-Sep-2024 05:07, Non-specific change in ST segment in Anterior leads Nonspecific T wave abnormality now evident in Inferior leads Referred By: Dusty Ren Electronically Signed By: Connor Guzman
--- NOTE | 2024-09-27 12:07 | ED_ITS ---
HPI - General Adult General Chief complaint: Chest Pain Stated complaint: high BP, pain in left arm, diff breathing Related Data Home Medications ?Medication ?Instructions ?Recorded ?Confirmed albuterol sulfate 90 mcg/actuation 2 puff inhalation QID PRN wheezing 09/22/24 09/22/24 aerosol inhaler (Ventolin HFA) ibuprofen 800 mg tablet 800 mg PO Q8H PRN pain 09/22/24 09/22/24 insulin glargine 100 unit/mL (3 25 unit subcut BEDTIME 09/22/24 09/22/24 mL) subcutaneous pen (Lantus Solostar U-100 Insulin) loratadine 10 mg tablet 10 mg PO DAILY 09/22/24 09/22/24 omeprazole 20 mg capsule,delayed 20 mg PO DAILY@0630 09/22/24 09/22/24 release sumatriptan succinate 25 mg tablet 25 mg PO DAILY PRN Migraine 09/22/24 09/22/24 Headache Previous Rx's ?Medication ?Instructions ?Recorded insulin aspart U-100 100 unit/mL 1 sliding scale dose subcut 07/02/24 (3 mL) subcutaneous pen (Novolog USEASDIRECTD #15 mL FlexPen U-100 Insulin aspart) ondansetron 4 mg disintegrating 4 mg PO Q8H PRN nausea and 07/02/24 tablet vomiting #10 tabs amlodipine 10 mg tablet 10 mg PO DAILY@1999 #30 tabs 09/25/24 [id number]-[id number] 1 cap PO Q8H PRN pain #15 caps 09/25/24 50 mg-300 mg-40 mg capsule (Fioricet) furosemide 20 mg tablet (Lasix) 20 mg PO DAILY PRN edema #60 tabs 09/25/24 losartan 50 mg tablet 100 mg PO DAILY #60 tabs 09/25/24 Allergies Allergy/AdvReac Type Severity Reaction Status Date / Time Sulfa (Sulfonamide Allergy Unknown HIVES Verified 09/27/24 12:06 Antibiotics) [SULFA (SULFONAMIDE ANTIBIOTICS)] clindamycin Allergy Hives Verified 09/27/24 12:06 fish derived [fish] Allergy Anaphylaxis Verified 09/27/24 12:06 PMFSH Family History Family History (Updated 09/23/24 @ 09:20 by Nirmal Gunderson MD) Father Hypertension Social History Social History Household Members: Family Housing: House Do you presently have visiting nurse or other home services: No Alcohol intake: current Alcohol intake frequency: holidays/special occasions only Patient Tobacco Use Status: Never used Tobacco Substance Use Type: Marijuana service: No Physical Exam ED Vital Signs: Vital Signs - 24 hr 09/27/24 12:06 09/27/24 13:55 Temperature 98.2 F 97.9 F Pulse Rate 92 97 Respiratory Rate 18 24 H Blood Pressure 176/115 H 160/106 H Pulse Oximetry 98 99 Oxygen Delivery Method Room Air Room Air BMI result Body Mass Index 36.3 Course Course Course Narrative: RME, this is a rapid medical exam performed by Irving Ren please refer to primary provider for complete H&P- 29-year-old female presents for evaluation of chest pain and high blood pressure. She was discharged on 09/25/2024 for CHF. She reports left arm pain and shortness of breath. Plan for cardiac workup. Medical Decision Making Lab Data 09/27/24 12:27 09/27/24 12:28 Labs: Lab Results 09/27/24 09/27/24 Range/Units 12:27 12:28 WBC 10.2 (4.8-10.8) X10*3/uL RBC 4.58 (4.20-5.50) X10*6/uL Hgb 13.9 (12.0-16.0) g/dl Hct 41.3 (37.0-47.0) % MCV 90.2 (80.0-98.0) fL MCH 30.3 (27.0-33.0) pg MCHC 33.7 (31.0-35.0) g/dl RDW 12.2 (11.0-16.0) % Plt Count 390 (160-400) X10*3/uL MPV 8.5 L (9.4-12.3) fL Immature Gran % (Auto) 0.2 (0.0-0.4) % Neut % (Auto) 66.5 (45-73) % Lymph % (Auto) 25.5 (20-40) % [place] % (Auto) 5.3 (2-11) % Eos % (Auto) 2.0 (0-4) % Baso % (Auto) 0.5 (0-2) % Lymph # (Auto) 2.6 (1.2-4.9) X10*3/uL [place] # (Auto) 0.5 (0.1-1.2) X10*3/uL Eos # (Auto) 0.2 (0.0-0.4) X10*3/uL Baso # (Auto) 0.1 (0.0-0.2) X10*3/uL Abs Immat Gran (auto) 0.02 (0.00-0.03) X10*3/uL Absolute Neuts (auto) 6.8 (2.0-8.3) x10*3/uL Absolute Nucleated RBC 0.000 (0.0-0.012) X10*3/uL Nucleated RBC % (auto) 0.0 (0.0-0.2) /100WBC Sodium 139 (135-145) mmol/L Potassium 3.9 (3.3-5.1) mmol/L Chloride 104 (96-108) mmol/L Carbon Dioxide 24 (22-29) mmol/L Anion Gap 15 (12-20) BUN 14 (9-16) mg/dL Creatinine 0.74 (0.5-1.4) mg/dL Estim Creat Clear Calc 119.1 Estimated GFR > 60 Random Glucose 253 H (60-115) mg/dL Calcium 8.9 D (8.4-10.2) mg/dL Total Bilirubin 0.4 (0.0-1.0) mg/dL AST 70 H (5-31) U/L ALT 55 H (0-31) U/L Alkaline Phosphatase 89 (39-117) U/L Total Creatine Kinase 69 (26-140) U/L Troponin I High Sens 2.7 D (<3.5-17.0) ng/L B-Natriuretic Peptide 279 H (<100) pg/mL Total Protein 6.2 L (6.5-8.0) g/dL Albumin 2.9 L (3.5-5.0) g/dL Lipase 8 (8-78) U/L Beta HCG, Quant < 2 mIU/mL Discharge Plan Discharge Clinical Impression: Shortness of breath Patient Disposition: Left W/O Completing Treatment Prescriptions: No Action ibuprofen 800 mg tablet 800 mg PO Q8H PRN (Reason: pain) sumatriptan succinate 25 mg tablet 25 mg PO DAILY PRN (Reason: Migraine Headache) omeprazole 20 mg capsule,delayed release(DR/EC) 20 mg PO DAILY@0630 insulin glargine [Lantus Solostar U-100 Insulin] 100 unit/mL (3 mL) insulin pen 25 unit subcut BEDTIME albuterol sulfate [Ventolin HFA] 90 mcg/actuation HFA aerosol inhaler 2 puff inhalation QID PRN (Reason: wheezing) loratadine 10 mg Tablet 10 mg PO DAILY losartan 50 mg Tablet 100 mg PO DAILY Qty: 60 0RF Protocol: Hold for SBP< HOLD for SBP < : 90 amlodipine 10 mg Tablet 10 mg PO DAILY@2000 Qty: 30 0RF Protocol: Hold for SBP< HOLD for SBP < : 90 furosemide [Lasix] 20 mg tablet 20 mg PO DAILY PRN (Reason: edema) Qty: 60 0RF [id number]-cyfzwiottkuiv-hkwn [Fioricet] 50-300-40 mg capsule 1 cap PO Q8H PRN (Reason: pain) Qty: 15 0RF insulin aspart U-100 [Novolog FlexPen U-100 Insulin] 100 unit/mL (3 mL) insulin pen 1 sliding scale dose subcut USEASDIRECTD Qty: 15 0RF ondansetron 4 mg tablet,disintegrating 4 mg PO Q8H PRN (Reason: nausea and vomiting) Qty: 10 0RF Discharge Date/Time: 09/27/24 16:58
[2024-09-27 12:32] LABS: MANUAL DIFF FLAG NO
[2024-09-27 12:34] LABS: Basophils Absolute Auto 0.1 X10*3/uL (0.0-0.2); Basophils Percent Auto 0.5 % (0-2); Eosinophils Absolute Auto 0.2 X10*3/uL (0.0-0.4); Hematocrit 41.3 % (37.0-47.0); Hemoglobin 13.9 g/dl (12.0-16.0); Imm Gran Abs Auto 0.02 X10*3/uL (0.00-0.03); Imm Gran Pct Auto 0.2 % (0.0-0.4); Lymphocytes Absolute Auto 2.6 X10*3/uL (1.2-4.9); Lymphocytes Percent Auto 25.5 % (20-40); Mean Corpuscular HGB Conc 33.7 g/dl (31.0-35.0); Mean Corpuscular Hemoglobin 30.3 pg (27.0-33.0); Mean Corpuscular Volume 90.2 fL (80.0-98.0); Mean Platelet Volume 8.5 fL (9.4-12.3); Monocytes Absolute Auto 0.5 X10*3/uL (0.1-1.2); Monocytes Percent Auto 5.3 % (2-11); Neutrophils Absolute Auto 6.8 x10*3/uL (2.0-8.3); Neutrophils Percent Auto 66.5 % (45-73); Platelet Count 390 X10*3/uL (160-400); Red Blood Count 4.58 X10*6/uL (4.20-5.50); Red Cell Distribution Width 12.2 % (11.0-16.0); White Blood Count 10.2 X10*3/uL (4.8-10.8)
[2024-09-27 12:54] LABS: B Type Natriuretic Peptide 279 pg/mL (<100)
[2024-09-27 12:55] LABS: Troponin-I High Sensitivity 2.7 ng/L (<3.5-17.0)
[2024-09-27 12:57] LABS: Alanine Aminotransferase 55 U/L (0-31); Albumin Level 2.9 g/dL (3.5-5.0); Alkaline Phosphatase 89 U/L (39-117); Anion Gap 15 (12-20); Aspartate Amino Transferase 70 U/L (5-31); Bilirubin Total 0.4 mg/dL (0.0-1.0); Blood Urea Nitrogen 14 mg/dL (9-16); Calcium 8.9 mg/dL (8.4-10.2); Carbon Dioxide 24 mmol/L (22-29); Chloride 104 mmol/L (96-108); Creatinine Clr Calc Pharmacy 119.1; Estimated Glomerular Filt Rate > 60; Glucose Random 253 mg/dL (60-115); HCG Quantitative < 2 mIU/mL; Lipase 8 U/L (8-78); Potassium 3.9 mmol/L (3.3-5.1); Sodium 139 mmol/L (135-145); Total Protein 6.2 g/dL (6.5-8.0)
[2024-09-27 13:55] VITALS: BP 160/106; PULSE 97; RESP 24; TEMP 36.6; O2SAT 99
--- OUTSIDE RECORDS SUMMARY | 2024-09-27 19:07 | XMS_ITS | Clinical Summary ---
Author Organization [facility] Address [address] [place] [address] Phone Care Team Providers Care Therapy Coordinator Name Role Phone Rebecca Encinas MD Primary Care Provider [phone] Allergies Active Allergy Reactions Criticality Noted Date Comments Clindamycin 11/25/2019 Other Reaction(s): Rash/Dermatitis Other 11/03/2014 SEASONAL Shellfish Derived 05/27/2024 Sulfa (Sulfonamide Antibiotics) Hives 04/12/2024 Medications albuterol HFA (PROAIR HFA ; PROVENTIL HFA ; VENTOLIN HFA) 90 mcg/actuation inhaler Inhale 2 Puffs into the lungs every 4 hours as needed for Cough, Wheezing or Shortness of Breath. 12/27/19 21 Active medical supply, miscellaneous (MISCELLANEOUS MEDICAL SUPPLY MISC) SYRINGE-NEEDL E, DISP, 3 ML 25G X 5/8 3 ML MISC To inject medication into the skin every 3 months. 11/14/19 21 Active loratadine (CLARITIN) 10 mg tablet Take 10 mg by mouth daily. Active CHOLECALCIFEROL, VITAMIN D3, ORAL Take 1 Tab by mouth daily. Active hydrOXYzine HCL (ATARAX) 25 mg tablet 1 TABLET BY MOUTH EVERY 6 HOURS,X5 DAYS NEEDED FOR ANXIETY 05/28/20 24 Active insulin glargine (Lantus Solostar U-100 Insulin) 100 unit/mL (3 mL) injection pen 50 units Sc at bedtime 15 mL 11 /31/20 25 Active glucagon (Gvoke HypoPen 2-Pack) 0.5 mg/0.1 mL auto-injector Inject 0.5 mg under the skin if needed (low blood sugar). 0.2 each 07/02/19 25 Active SUMAtriptan (IMITREX) 25 mg tablet May repeat dose once in 2 hours if no relief. Do not exceed 2 doses in 24 hours. 9 tablet 2 08/05/19 25 Active insulin aspart (NovoLOG FlexPen) 100 unit/mL (3 mL) injection pen 1 TO 5 UNITS FOR CARBS .1 TO 20 UNITS FOR BLOOD SUGAR ABOVE 120 SLIDING SCALE Dispense aspart , generic only 15 mL 08/06/19 25 Active omeprazole (PRILOSEC) 20 mg tablet,delayed release (DR/EC) Take 1 tablet (20 mg total) by mouth 1 (one) time each day. 90 tablet 3 08/12/19 25 Active ondansetron ODT (ZOFRAN-ODT) 4 mg disintegrating tablet Dissolve 1 tablet (4 mg total) on top of the tongue every 8 (eight) hours if needed for nausea. 30 tablet 2 08/12/19 25 Active amLODIPine (NORVASC) 5 mg tablet TAKE 1 TABLET BY MOUTH 1 TIME EACH DAY. 90 tablet 1 09/22/19 25 Active amLODIPine (NORVASC) 5 mg tablet Take 1 tablet (5 mg total) by mouth 1 (one) time each day. 90 tablet 06/25/19 25 2024 Discontinued Active Problems Problem Noted Date Diagnosed Date Menorrhagia with irregular cycle 07/12/2024 Assessment & Plan (07/12/2024 4:30 PM EST): Discussed other options for management. I recommended Mirena IUD. Her best friend who is here has one and agreed. She agreed and will schedule to follow up. CBC and TSH today. Primary hypertension 07/12/2024 Ovarian mass, right 07/12/2024 Overview (07/12/2024): 1 cm likely lipoma vs dermoid on US and MRI 2024 Assessment & Plan (07/12/2024 4:29 PM EST): Explained to Wendy that it is likely a dermoid vs lipoma, but given so small, would not be able to find it likely and could result in loss of her ovary. Do not recommend surgery. Can repeat US in one year. She agreed. Type 1 diabetes mellitus wit hout complication ([facility] V24, [facility] V28) 06/25/2024 Depression, major, recurrent , moderate ([facility] V24, [facility] V28) 05/11/2024 Obesity 05/11/2024 Tobacco use disorder 05/11/2024 Migraine with aura, with int ractable migraine, so stated, with status migrainosus 05/30/2021 Vaginal discharge 04/12/2020 Overview (05/11/2024): Last Assessment & Plan: Wet prep and yeast culture done today, will treat as indicated. Reviewed vulvar hygiene and encouraged patient to stop using Summer's daisy. Rx for lotrisone cream ePrescribed. Patient to return if symptoms do not improve. Resolved Problems Problem Noted Date Diagnosed Date Resolved Date Known medical problems 12/12/201407/12 Overview (05/11/2024): Type 1 diabetes mellitus, uncontrolled Encounters Date Type Department Care Team Description 09/27/2024 Telephone Adult Medicine [place] - [address] [phone] Rebecca Encinas MD Hospitalization/ER; Hypertension 08/26/2024 12:45 PM EDT - 08/26/2024 11:59 PM EDT Hospital Encounter Radiology Department - [address] [phone] Ovarian mass, right Discharge Disposition: Home or Self Care 08/19/2024 11:05 AM EDT Lab Draw Station - [address] Gastroesophageal reflux disease, unspecified whether esophagitis present; Nausea and vomiting, unspecified vomiting type; Type 1 diabetes mellitus without complication ([facility] V24, [facility] V28) 08/11/2024 1:00 PM EDT Consult Gastroenterology - [place] [address] [place] [address] Charity Wall PA Gastroesophageal reflux disease, unspecified whether esophagitis present (Primary Dx); Nausea and vomiting, unspecified vomiting type; Epigastric abdominal pain 08/09/2024 2:30 PM EDT - 08/09/2024 11:59 PM EDT Hospital Encounter CT Scan - [address] [phone] Liver lesion Discharge Disposition: Home or Self Care 08/04/2024 11:00 AM EST Office Visit Adult Medicine [place] - [address] [phone] Ryan Cuellar PA Primary hypertension (Primary Dx); Migraine with aura, with intractable migraine, so stated, with status migrainosus 08/04/2024 Telephone Endocrinology - [address] [phone] Narda Sharma PA Medication Problem (NOVOLOG PA) 07/27/2024 2:45 PM EST Procedure visit Obstetrics and Gynecology - [address] [phone] Marbella Pro MD Encounter for IUD insertion (Primary Dx); Screen for STD (sexually transmitted disease); Menorrhagia with irregular cycle 07/12/2024 2:50 PM EST Lab Draw Station - [address] Menorrhagia with irregular cycle 07/12/2024 2:00 PM EST Office Visit Obstetrics and Gynecology - [address] [phone] Marbella Pro MD Menorrhagia with irregular cycle (Primary Dx); Ovarian mass, right 07/08/2024 12:02 PM EST - 07/08/2024 11:59 PM EST Hospital Encounter Radiology Department - [address] [phone] Ovarian mass, right Discharge Disposition: Home or Self Care 07/08/2024 12:02 PM EST - 07/08/2024 11:59 PM EST Hospital Encounter Radiology Department - [address] [phone] Liver lesion Discharge Disposition: Home or Self Care 07/08/2024 Telephone Adult Medicine [place] - [address] [phone] Rebecca Encinas MD 07/02/2024 9:00 AM EST Consult Endocrinology - [address] [phone] Narda Sharma PA Type 1 diabetes mellitus without complication (CMS/HCC V24, CMS/HCC V28) (Primary Dx) 06/30/2024 5:00 PM EST - 06/30/2024 11:59 PM EST Hospital Encounter Radiology Department - [address] [phone] Ovarian mass, right Discharge Disposition: Home or Self Care from Last 3 Months Immunizations Name Administration Dates Next Due DTaP (Infanrix) 6wks to less than 7yo ,09/03/1999,05/04/1998,1997,1997 CLiI-BSD-VRE (Pentacel) 2mo to less than 5yo 09/03/1999,05/04/1998,03/01/1998,1997 Hepatitis B Pediatric (Enger ix B; Recombivax HB) to less than 20 yo 01/05/2015,11/17/2014,09/27/1998,1997,1997 Influenza trivalent, with preservative (Fluzone; Afluria) 6mo and older 04/09/2021,03/11/2013,05/04/2012,2011,06/11/2007,05/02/2006 MMR, measles mumps and rubel la Live (Priorix; M-M-R II) 12mo and older 11/17/2001,09/27/1998 Measles 11/15/2014 Meningococcal, Unspecified 10/04/2008 Mumps 11/15/2014 PPD Test 11/15/2014 Pneumococcal Conjugate Vacci ne, 7 Valent 06/11/2007 Rubella 11/15/2014 Tdap Tetanus diptheria acell ular pertussis (Boostrix; Adacel) 7yo and older 10/04/2008 Varicella live (Varivax) 12m o and older 09/03/1999 Surgical History Surgery Date Site/Laterality Comments UPPER GASTROINTESTINAL ENDOSCOPY 2007 PROCEDURE: UPPER GI ENDOSCOPY/EXAM; [facility] Medical History Medical History Date Comments Type 1 diabetes mellitus (CM S/HCC V24, CMS/HCC V28) DX:Type 1 diabetes mellitus (HCC); COMMENT: [facility] Endocrinology. Dr. Griffin. Dx age 8 Mild intermittent asthma DX:Mild intermittent asthma Obesity DX:Obesity Headache DX:Headache Depression with anxiety DX:Depre ssion with anxiety Tobacco use disorder DX:Tobacco use disorder Endometriosis Family History Medical History Relation Name Comments Breast cancer Mother Colon cancer Neg Hx Ovarian cancer Neg Hx Prostate cancer Neg Hx Uterine cancer Neg Hx Relation Name Status Comments Brother Alive healthy Father Alive htn, chronic si nusitis, allergies, chronic pain Maternal Grandfather (Age 60) se psis Maternal Grandmother Alive Mother Alive type 1 diabetes , breast ca Paternal Grandfather Alive htn, ty pe 2 diabetes Paternal Grandmother Alive type 2 diabetes, heart issues, copd Sister Alive type 1 diabetes Social History Tobacco Use Types Packs/Day Years Used Date Smoking Tobacco: Every Day Cigarettes Smokeless Tobacco: Never Tobacco Cessation:Ready to Q uit: Not Asked; Counseling Given: Not Answered Alcohol Use Standard Drinks/Week Comments Yes 0 (1 standard drink = 0.6 oz pur e alcohol) socially Comments No Sex and Gender Information Value Date Recorded Sex Assigned at Female 04/13/2024 7:52 AM EST Legal Sex Female 5:25 AM EST Gender Identity Female 04/13/2024 7:52 AM EST Sexual Orientation Choose not to disclose 2023 7:52 AM EST Obstetrics History Para Term AB IAB SAB Ectopic Multiple Livin g Live Births 2 0 0 0 2 0 2 0 0 0 0 Date Outcome GA Total Labor Labor/2nd/3rd Weight Sex Type Anes PTL Teetee A1 A5 Name Clin SAB SAB Last Filed Vital Signs Vital Sign Reading Time Taken Comments Blood Pressure 146/80 08/11/2024 1:07 PM EDT Pulse 94 08/04/2024 10:55 AM EST Temperature 35.6 ??C (96.1 ??F) 08/04/2024 10:[address] Respiratory Rate 14 08/04/2024 10:55 AM EST Oxygen Saturation 97% 07/02/2024 9:17 AM EST Inhaled Oxygen Concentration - - Weight 92.5 kg (204 lb) 08/11/2024 1:07 PM EDT Height 158.8 cm (5' 2.5 ) 08/11/2024 1:07 PM EDT Body Mass Index 36.72 08/11/2024 1:07 PM EDT Plan of Treatment Upcoming Encounters Date Type Department Care Team (Late st Contact Info) Description 10/20/2024 8:00 AM EDT Appointment [facility] Xray [address] [place] [phone] 11/11/2024 1:00 PM EDT Office Visit Gastroenterology [facility] [address] [facility] [address] [facility] [address] [place] [phone] Charity Wall PA [address] [facility] [address] [place] [address] 11/16/2024 1:00 PM EDT Office Visit Adult Medicine [address] [phone] Rebecca Encinas MD [address] [place] [phone] 02/11/2025 8:15 AM EDT Appointment [facility] [address] [place] [address] Health Maintenance Due Date Last Done Comments Pneumococcal Vaccine: Pediatrics (0 to 5 Years) and At-Risk Patients (6 to 64 Years) (2 of 2 - PPSV23) 08/06/2007 06/11/2007 Diabetes: Annual Foot Exam 09/02/2007 Diabetes: Annual Retina Eye Exam 09/02/2007 DTaP,Tdap,and Td Vaccines (7 - Td or Tdap) 10/04/2018 10/04/2008, 02/16/2003, 09/03/1999, Additional history exists Cholesterol Screening (Lipid Panel) 05/05/2022 Social Influencers of Health Screening 05/05/2022 Diabetes: Annual Urine Albumin-Creatinine Ratio (uACR) 05/16/2022 Cervical Cancer Screening: Pap Smear 04/12/2023 04/12/2020, 04/12/2020, 04/12/2020 COVID-19 Vaccine ( season) 2024 04/30/2021, 04/09/2021 Diabetes: Blood Sugar Control Test (HGBA1C) 12/23/2024 06/25/2024, 04/05/2015 Influenza Vaccine (Season Ended) 2025 04/09/2021, 03/11/2013, 05/04/2012, Additional history exists Depression Screening 07/11/2025 07/11/2024 Diabetes: Annual GFR (Glomerular Filtration Rate) 08/19/2025 08/19/2024, 06/25/2024, 04/13/2024, Additional history exists Hypertension/CHF/CAD Annual BMP Blood Test 08/19/2025 08/19/2024, 06/25/2024, 04/13/2024, Additional history exists HIB Vaccines Completed 09/03/1999, 07/1997, 03/01/1998, Additional history exists IPV Vaccines Completed 09/03/1999, 07/1997, 03/01/1998, Additional history exists Varicella Vaccines Aged Out 09/03/1999 No longer eligible based on patient's age to complete this topic MMR Vaccines Completed 11/17/2001, 09/27/1998 Meningococcal ACWY Vaccine Aged Out 10/04/2008 N o longer eligible based on patient's age to complete this topic Hepatitis B Vaccines Completed 01/05/2015, 11/17/2014, 09/27/1998, Additional history exists HIV Screening Completed 11/23/2020 Hepatitis C Screening Completed 11/23/2020 Gonorrhea/Chlamydia Screening Discontinued 07/27/2024, 06/20/2021 HPV Vaccines Aged Out No longer eligi ble based on patient's age to complete this topic Hepatitis A Vaccines Aged Out No long er eligible based on patient's age to complete this topic Meningococcal B Vaccine Aged Out No l onger eligible based on patient's age to complete this topic RSV Immunization Patients Under 20 months Aged Out No longer eligible based on patient's age to complete this topic Procedures Procedure Name Priority Date/Time Associated Diagnosis Comments US DUPLEX ABDOMEN/PELVIS/RETRO LIMITED Routine 08/26/2024 1:17 PM EDT Ovarian mass, right US PELVIS NON OB COMPLETE W TRANSVAGINAL Routine 08/26/2024 1:17 PM EDT Ovarian mass, right BASIC METABOLIC PANEL Routine 08/19/2024 11:08 AM EDT Type 1 diabetes mellitus without complication (CMS/HCC V24, CMS/HCC V28) ALPHA FETOPROTEIN TUMOR MARKER Routine 08/19/2024 11:08 AM EDT Gastroesophageal reflux disease, unspecified whether esophagitis present Nausea and vomiting, unspecified vomiting type CT ABDOMEN PELVIS WO AND W CONTRAST Routine 08/09/2024 2:50 PM EDT Liver lesion CHLAMYDIA TRACHOMATIS AND NEISSERIA GONORRHOEAE PCR Routine 07/27/2024 3:19 PM EST Screen for STD (sexually transmitted disease) CBC WITH AUTO DIFFERENTIAL Routine 07/12/2024 2:53 PM EST Menorrhagia with irregular cycle CBC AND DIFFERENTIAL Routine 07/12/2024 2:53 PM EST Menorrhagia with irregular cycle THYROID STIMULATING HORMONE WITH REFLEX TO FREE T4 AND FREE T3 Routine 07/12/2024 2:53 PM EST Menorrhagia with irregular cycle MR PELVIS WO AND W CONTRAST Routine 07/08/2024 1:20 PM EST Ovarian mass, right MR ABDOMEN WO AND W CONTRAST Routine 07/08/2024 1:17 PM EST Liver lesion POC URINE AUTO W/O MICRO Routine 07/02/2024 9:31 AM EST Type 1 diabetes mellitus without complication (CMS/HCC V24, CMS/HCC V28) POC GLUCOSE Routine 07/02/2024 9:23 AM EST Type 1 diabetes mellitus without complication (CMS/HCC V24, CMS/HCC V28) US PELVIS NON OB COMPLETE W TRANSVAGINAL Routine 06/30/2024 5:42 PM EST Ovarian mass, right HEMOGLOBIN A1C Routine 06/25/2024 2:07 PM EST Type 1 diabetes mellitus without complication (CMS/HCC V24, CMS/HCC V28) HEPATITIS C SCREENING Routine 11/23/2020 HM HIV SCREENING Routine 11/23/2020 PAP SMEAR Routine 04/12/2020 from Last 3 Months or Most Recently Relevant to Health Maintenance Results * US Pelvis Non OB Complete w Transvaginal (08/26/2024 1:17 PM EDT) Only the most recent of2 resultswithin the time period is included. Anatomical Region Laterality Modality Body, Pelvis Ultrasound 08/26/2024 1:46 PM EDT Impressions 08/26/2024 1:54 PM EDT 1. No evidence of ovarian cysts. 2. ??IUD is 0.5 cm from the fundal endometrium. -------- FINAL REPORT -------- Dictated By: Demetrius Mora Dictated Date: 08/26/2024 13:46 ET Assigned Physician: Demetrius Mora Reviewed and Electronically Signed By: Demetrius Mora Signed Date: 08/26/2024 13:54 ET Workstation ID: [id number] Transcribed By: Self Edit Transcribed Date: 08/26/2024 13:46 ET Narrative 08/26/2024 1:54 PM EDT EXAM: TRANSABDOMINAL AND TRANSVAGINAL PELVIC ULTRASOUND HISTORY: Latrell rt ovarian cyst on CT- further evaluation COMPARISON: CT abdomen and pelvis from 08/09/2024 Technique: Grayscale and Doppler images of the pelvis were obtained using transabdominal approach. Transvaginal approach was used to better characterize the ovaries. Color Doppler flow and spectral waveform analysis FINDINGS: The uterus is normal in size and measures 7.1 x 3.7 x 4.3 cm. The endometrial stripe measures up to 0.4 cm. IUD is 0.5 cm from the fundal endometrium. ??The myometrium is unremarkable. No fibroids visualized. Right ovary measures 2.9 x 1.8 x 1.6 cm and is sonographically unremarkable. ??Normal arterial and venous waveforms are identified. Left ovary measures 2.7 x 1.9 x 2.3 cm and is also sonographically unremarkable. ??Arterial waveform is not seen. ??Venous waveforms are within normal limits. No free fluid. Procedure Note Demetrius Mora MD - 08/26/2024 EXAM: TRANSABDOMINAL AND TRANSVAGINAL PELVIC ULTRASOUND HISTORY: Latrell rt ovarian cyst on CT- further evaluation COMPARISON: CT abdomen and pelvis from 08/09/2024 Technique: Grayscale and Doppler images of the pelvis were obtained usingtransabdominal approach. Transvaginal approach was used to bettercharacterize the ovaries. Color Doppler flow and spectral waveformanalysis FINDINGS: The uterus is normal in size and measures 7.1 x 3.7 x 4.3 cm. Theendometrial stripe measures up to 0.4 cm. IUD is 0.5 cm from the fundalendometrium. The myometrium is unremarkable. No fibroids visualized. Right ovary measures 2.9 x 1.8 x 1.6 cm and is sonographicallyunremarkable. Normal arterial and venous waveforms are identified. Left ovary measures 2.7 x 1.9 x 2.3 cm and is also sonographicallyunremarkable. Arterial waveform is not seen. Venous waveforms are withinnormal limits. No free fluid. IMPRESSION: 1. No evidence of ovarian cysts. 2. IUD is 0.5 cm from the fundal endometrium. -------- FINAL REPORT -------- Dictated By: Demetrius Mora Dictated Date: 08/26/2024 13:46 ET Assigned Physician: Demetrius Mora Reviewed and Electronically Signed By: Demetrius Mora Signed Date: 08/26/2024 13:54 ET Workstation ID: [id number] Transcribed By: Self Edit Transcribed Date: 08/26/2024 13:46 ET us Rebecca Encinas MD IMG US PROCEDURES Final Result * US Duplex Abdomen/Pelvis/Retro Limited (08/26/2024 1:17 PM EDT) Anatomical Region Laterality Modality Body Ultrasound 08/26/2024 1:46 PM EDT Impressions 08/26/2024 1:54 PM EDT 1. No evidence of ovarian cysts. 2. ??IUD is 0.5 cm from the fundal endometrium. -------- FINAL REPORT -------- Dictated By: Demetrius Mora Dictated Date: 08/26/2024 13:46 ET Assigned Physician: Demetrius Mora Reviewed and Electronically Signed By: Demetrius Mora Signed Date: 08/26/2024 13:54 ET Workstation ID: [id number] Transcribed By: Self Edit Transcribed Date: 08/26/2024 13:46 ET Narrative 08/26/2024 1:54 PM EDT EXAM: TRANSABDOMINAL AND TRANSVAGINAL PELVIC ULTRASOUND HISTORY: Latrell rt ovarian cyst on CT- further evaluation COMPARISON: CT abdomen and pelvis from 08/09/2024 Technique: Grayscale and Doppler images of the pelvis were obtained using transabdominal approach. Transvaginal approach was used to better characterize the ovaries. Color Doppler flow and spectral waveform analysis FINDINGS: The uterus is normal in size and measures 7.1 x 3.7 x 4.3 cm. The endometrial stripe measures up to 0.4 cm. IUD is 0.5 cm from the fundal endometrium. ??The myometrium is unremarkable. No fibroids visualized. Right ovary measures 2.9 x 1.8 x 1.6 cm and is sonographically unremarkable. ??Normal arterial and venous waveforms are identified. Left ovary measures 2.7 x 1.9 x 2.3 cm and is also sonographically unremarkable. ??Arterial waveform is not seen. ??Venous waveforms are within normal limits. No free fluid. Procedure Note Demetrius Mora MD - 08/26/2024 EXAM: TRANSABDOMINAL AND TRANSVAGINAL PELVIC ULTRASOUND HISTORY: Latrell rt ovarian cyst on CT- further evaluation COMPARISON: CT abdomen and pelvis from 08/09/2024 Technique: Grayscale and Doppler images of the pelvis were obtained usingtransabdominal approach. Transvaginal approach was used to bettercharacterize the ovaries. Color Doppler flow and spectral waveformanalysis FINDINGS: The uterus is normal in size and measures 7.1 x 3.7 x 4.3 cm. Theendometrial stripe measures up to 0.4 cm. IUD is 0.5 cm from the fundalendometrium. The myometrium is unremarkable. No fibroids visualized. Right ovary measures 2.9 x 1.8 x 1.6 cm and is sonographicallyunremarkable. Normal arterial and venous waveforms are identified. Left ovary measures 2.7 x 1.9 x 2.3 cm and is also sonographicallyunremarkable. Arterial waveform is not seen. Venous waveforms are withinnormal limits. No free fluid. IMPRESSION: 1. No evidence of ovarian cysts. 2. IUD is 0.5 cm from the fundal endometrium. -------- FINAL REPORT -------- Dictated By: Demetrius Mora Dictated Date: 08/26/2024 13:46 ET Assigned Physician: Demetrius Mora Reviewed and Electronically Signed By: Demetrius Mora Signed Date: 08/26/2024 13:54 ET Workstation ID: [id number] Transcribed By: Self Edit Transcribed Date: 08/26/2024 13:46 ET us Rebecca Encinas MD [facility] [place] PROCEDURES Final Result * Alpha fetoprotein tumor marker (08/19/2024 11:08 AM EDT) AFP <2.5 0.0 - 8.0 ng/mL LAB CHEMISTRY METHOD 08/19/2024 5:25 PM EDT [facility] Blood Venous blood specimen / Unknown Venipuncture / Unknown 08/19/2024 11:08 AM EDT 08/19/2024 11:08 AM EDT Narrative [facility] - 08/19/2024 5:25 PM EDT The Siemens Advia Centaur Chemiluminescent Immunoassay is used. Results obtained with different assay methods or kits cannot be used interchangeably. Results cannot be interpreted as absolute evidence of the presence or absence of malignant disease. us Charity SCHWAB LAB BLOOD ORDERABLES Final Re sult [facility] [address] [place] [address], * (ABNORMAL) Basic metabolic panel (08/19/2024 11:08 AM EDT) Sodium 136 133 - 145 mmol/L LAB CHEMISTRY METHOD 08/19/2024 5:15 PM EDT [facility] Potassium 4.7 3.5 - 5.5 mmol/L LAB CHEMISTRY METHOD 08/19/2024 5:15 PM [facility] Chloride 104 96 - 110 mmol/L LAB CHEMISTRY METHOD 08/19/2024 5:15 PM T [facility] CO2 26 21 - 32 mmol/L LAB CHEMISTRY METHOD 08/19/2024 5:15 PM [facility] Anion Gap 6 3 - 11 LAB CHEMISTRY METHOD 08/19/2024 5:15 PM [facility] Glucose 147(H) 70 - 100 mg/dL LAB CHEMISTRY METHOD 08/19/2024 5:15 PM T [facility] BUN 22 5 - 25 mg/dL LAB CHEMISTRY METHOD 08/19/2024 5:15 PM [facility] Creatinine 0.80 0.50 - 1.10 mg/dL LAB CHEMISTRY METHOD 08/19/2024 5:15 PM [facility] eGFR 104 >=60 mL/min/1. 73m2 LAB CHEMISTRY METHOD 08/19/2024 5:15 PM T [facility] Comment:Calculation based on the??Chronic Kidney Disease Epidemiology Collaboration (CKD-EPI) equation refit??without adjustment for race. BUN/Creatinine Ratio 27.5 LAB CHEMISTRY METHOD 08/19/2024 5:15 PM EDT [facility] Calcium 9.4 8.5 - 10.5 mg/dL LAB CHEMISTRY METHOD 08/19/2024 5:15 PM EDT [facility] Blood Venous blood specimen / Unknown Venipuncture / Unknown 08/19/2024 11:08 AM EDT 08/19/2024 11:08 AM EDT us Rebecca Encinas MD LAB BLOOD ORDERABLES Final Resul t [facility] [address] [place] [address], [place] [phone] * CT Abdomen Pelvis wo and w Contrast (08/09/2024 2:50 PM EDT) Anatomical Region Laterality Modality Body Computed Tomogra phy 08/09/2024 4:28 PM EDT Impressions 08/09/2024 4:47 PM EDT Impression: 1. Enhancing lesion within the right hepatic lobe is again seen. ??Differential considerations include hepatic adenoma versus FNH. 2. Right ovarian hypodense lesion which likely represents ovarian cyst measures 6.4 cm. ??This was not seen on prior CT or ultrasound. ??The echogenic lesion seen on prior MRI that to be a lipoma or dermoid is not well seen on today's CT. 3. No free fluid. ??This likely was artifactual on the MRI -------- FINAL REPORT -------- Dictated By: Demetrius Mora Dictated Date: 08/09/2024 16:28 ET Assigned Physician: Demetrius Mora Reviewed and Electronically Signed By: Demetrius Mora Signed Date: 08/09/2024 16:47 ET Workstation ID: [id number] Transcribed By: Self Edit Transcribed Date: 08/09/2024 16:28 ET Narrative 08/09/2024 4:[address] abdomen and pelvis with and without intravenous contrast HISTORY:LIVER PROTOCOL- recommended based on MRI for eval of liver lesion/free fluid in upper abdomen COMPARISON:MRI abdomen from 07/08/2024 Technique: Multiple contiguous axial images of the abdomen and pelvis are obtained with and without the administration of 100 cc of ISOVUE 370 intravenous contrast. Images were reformatted in coronal and sagittal planes. ??Radiation dose is48.3 mGy Findings: Mediastinum: The apex of the heart is within normal limits for size, no pericardial effusion. Lung bases: Lung bases are clear. Upper Abdomen: There is a lobular enhancing lesion measuring 4.6 x 3.9 cm within the posterior right hepatic lobe (series 4, image 142) without washout on the delayed images. ??The gallbladder, pancreas and spleen are within normal limits. : The adrenal glands are within normal limits. The kidneys are unremarkable. ??The ureters take a nonobstructed course to well-distended urinary bladder. ??Uterus is anteverted and contains an IUD device. ??There is a right ovarian hypodense measuring 6.4 cm x 4.3 cm. Lower GI: The bowel is without obstruction, or inflammation. There is no free air or free fluid. The appendix and terminal ileum are within normal limits. ??Multiple subcentimeter lymph nodes throughout the abdomen and pelvis. Vascular: The abdominal aorta is within normal limits. MSK: Osseous structures are without acute fracture or dislocation. Soft tissues are within normal limits. Procedure Note Demetrius Mora MD - 08/09/2024 CT abdomen and pelvis with and without intravenous contrast HISTORY:LIVER PROTOCOL- recommended based on MRI for eval of liverlesion/free fluid in upper abdomen COMPARISON:MRI abdomen from 07/08/2024 Technique: Multiple contiguous axial images of the abdomen and pelvis areobtained with and without the administration of 100 cc of ISOVUE 370intravenous contrast. Images were reformatted in coronal and sagittalplanes. Radiation dose is48.3 mGy Findings: Mediastinum: The apex of the heart is within normal limits for size, nopericardial effusion. Lung bases: Lung bases are clear. Upper Abdomen: There is a lobular enhancing lesion measuring 4.6 x 3.9 cmwithin the posterior right hepatic lobe (series 4, image 142) withoutwashout on the delayed images. The gallbladder, pancreas and spleen arewithin normal limits. : The adrenal glands are within normal limits. The kidneys areunremarkable. The ureters take a nonobstructed course to well-distendedurinary bladder. Uterus is anteverted and contains an IUD device. Thereis a right ovarian hypodense measuring 6.4 cm x 4.3 cm. Lower GI: The bowel is without obstruction, or inflammation. There is nofree air or free fluid. The appendix and terminal ileum are within normallimits. Multiple subcentimeter lymph nodes throughout the abdomen andpelvis. Vascular: The abdominal aorta is within normal limits. MSK: Osseous structures are without acute fracture or dislocation. Softtissues are within normal limits. IMPRESSION: Impression: 1. Enhancing lesion within the right hepatic lobe is again seen.Differential considerations include hepatic adenoma versus FNH. 2. Right ovarian hypodense lesion which likely represents ovarian cystmeasures 6.4 cm. This was not seen on prior CT or ultrasound. Theechogenic lesion seen on prior MRI that to be a lipoma or dermoid is notwell seen on today's CT. 3. No free fluid. This likely was artifactual on the MRI -------- FINAL REPORT -------- Dictated By: Demetrius Mora Dictated Date: 08/09/2024 16:28 ET Assigned Physician: Demetrius Mora Reviewed and Electronically Signed By: Demetrius Mora Signed Date: 08/09/2024 16:47 ET Workstation ID: [id number] Transcribed By: Self Edit Transcribed Date: 08/09/2024 16:28 ET us Rebecca Encinas MD [facility] [place]EDURES Final Result * Chlamydia trachomatis and Neisseria gonorrhoeae molecular study (07/27/2024 3:19 PM EST) Neisseria gonorrhoeae PCR Negative Negative LAB MOLECULAR DIAGNOSTICS METHOD 07/28/2024 9:36 AM EST [facility] Chlamydia trachomatis PCR Negative Negative LAB MOLECULAR DIAGNOSTICS METHOD 07/28/2024 9:36 AM EST [facility] Swab Cervix uteri structure / Unknown Non-blood Collection / Unknown 07/27/2024 3:19 PM EST 07/27/2024 3:19 PM EST us Marbella Pro MD LAB MICROBIOLOGY - GENERAL ORDERABLES Final Result Performing Organization Address [facility]/ZIP Co de Phone Number [facility] [address] [place] [address], [place] [phone] * Thyroid stimulating hormone with reflex to free t4 and free t3 (07/12/2024 2:53 PM EST) [facility] TSH 1.98 0.40 - 4.00 mcIU/mL LAB CHEMISTRY METHOD 07/12/2024 5:38 PM EST [facility] Blood Venous blood specimen / Unknown Venipuncture / Unknown 07/12/2024 2:53 PM EST 07/12/2024 2:53 PM EST us Marbella Pro MD LAB BLOOD ORDERABLES Final Result Performing Organization Address [facility]/ZIP Co de Phone Number [facility] [address] [place] [address], [place] [phone] * (ABNORMAL) CBC auto differential (07/12/2024 2:53 PM EST) [facility] WBC 9.3 4.8 - 10.8 K/mcL LAB HEMETOLOGY METHOD 07/12/2024 4:40 PM EST [facility] RBC 4.10 3.80 - 4.80 M/mcL LAB HEMETOLOGY METHOD 07/12/2024 4:40 PM EST [facility] Hemoglobin 12.2 11.5 - 16.0 g/dL LAB HEMETOLOGY METHOD 07/12/2024 4:40 PM [facility] Hematocrit 37.6 35.0 - 47.0 % LAB HEMETOLOGY METHOD 07/12/2024 4:40 PM [facility] MCV 91.9 79.0 - 98.0 FL LAB HEMETOLOGY METHOD 07/12/2024 4:40 PM [facility] MCH 29.8 27.0 - 32.0 pcg LAB HEMETOLOGY METHOD 07/12/2024 4:40 PM [facility] MCHC 32.4 32.0 - 37.0 g/dL LAB HEMETOLOGY METHOD 07/12/2024 4:40 PM [facility] RDW 12.2 11.0 - 15.0 % LAB HEMETOLOGY METHOD 07/12/2024 4:40 PM [facility] Platelets 516(H) 130 - 400 K/mcL LAB HEMETOLOGY METHOD 07/12/2024 4:40 PM [facility] MPV 9.2 7.0 - 11.0 FL LAB HEMETOLOGY METHOD 07/12/2024 4:40 PM [facility] NRBC 0.0 <1.0 % LAB HEMETOLOGY METHOD 07/12/2024 4:40 PM [facility] NRBC Absolute 0.00 <0.10 K/mcL LAB HEMETOLOGY METHOD 07/12/2024 4:40 PM [facility] Neutrophils Relative 53.2 % LAB HEMETOLOGY METHOD 07/12/2024 4:40 PM [facility] Lymphocytes Relative 38.4 % LAB HEMETOLOGY METHOD 07/12/2024 4:40 PM [facility] Monocytes Relative 5.8 % LAB HEMETOLOGY METHOD 07/12/2024 4:40 PM [facility] Eosinophils Relative 1.8 % LAB HEMETOLOGY METHOD 07/12/2024 4:40 PM [facility] Basophils Relative 0.6 % LAB HEMETOLOGY METHOD 07/12/2024 4:40 PM [facility] Immature Granulocytes Relative 0.2 % LAB HEMETOLOGY METHOD 07/12/2024 4:40 PM EST [facility] Neutrophils Absolute 4.95 1.50 - 7.00 K/mcL LAB HEMETOLOGY METHOD 07/12/2024 4:40 PM EST [facility] Lymphocytes Absolute 3.58 1.00 - 5.00 K/mcL LAB HEMETOLOGY METHOD 07/12/2024 4:40 PM EST [facility] Monocytes Absolute 0.54 0.20 - 1.00 K/mcL LAB HEMETOLOGY METHOD 07/12/2024 4:40 PM EST [facility] Eosinophils Absolute 0.17 0.00 - 0.50 K/[facility] LAB HEMETOLOGY METHOD 07/12/2024 4:40 PM EST [facility] Basophils Absolute 0.06 0.00 - 0.20 K/mcL LAB HEMETOLOGY METHOD 07/12/2024 4:40 PM EST [facility] Immature Granulocytes Absolute 0.02 0.00 - 0.03 K/[facility] LAB HEMETOLOGY METHOD 07/12/2024 4:40 PM EST [facility] Blood Venous blood specimen / Unknown Venipuncture / Unknown 07/12/2024 2:53 PM EST 07/12/2024 2:53 PM EST us Marbella Pro MD LAB BLOOD ORDERABLES Final Result [facility] [address] [place] [address], * MR Pelvis wo and w Contrast (07/08/2024 1:20 PM EST) Anatomical Region Laterality Modality Pelvis, Body Magnetic Resonan ce 07/09/2024 10:2 4 AM EST Impressions 07/09/2024 11:05 AM EST 1.0 x 0.7 x 0.8 cm fat signal lesion adjacent to the right ovary corresponding to the CT and ultrasound finding. Lipoma and dermoid are in the differential. -------- FINAL REPORT -------- Dictated By: Bekah Shi Dictated Date: 07/09/2024 10:24 ET Assigned Physician: Bekah Shi Reviewed and Electronically Signed By: Bekah Shi Signed Date: 07/09/2024 11:05 ET Workstation ID: [id number] Transcribed By: Self Edit Transcribed Date: 07/09/2024 10:24 ET Narrative 07/09/2024 11:05 AM EST MR PELVIS WO AND W CONTRAST MRI OF THE PELVIS WITHOUT AND WITH IV CONTRAST HISTORY: ??Ovarian lesion on ultrasound. Patient reports question of history of ovarian cyst mass. PRIOR STUDIES: Pelvic ultrasound performed [06/30/2024]. CT abdomen pelvis 04/13/2024 TECHNIQUE: Multiplanar and multi sequential pelvic MRI of the pelvis pre and postcontrast per department protocol. ??The patient received [20] cc IV Dotarem contrast. FINDINGS: The uterus measures 6.8 x 3.6 x 6.2 cm. The endometrium measures 8 mm in thickness. The right ovary measures 1.6 x 2.8 x 2.2 cm. There is a 1.0 x 0.7 x 0.8 cm lesion just posterior and medial to the right ovary, corresponding to the CT and ultrasound finding. This lesion follows fat signal on all sequences and demonstrates no enhancement. The left ovary measures 1.6 x 2.1 x 2.5 cm. There is no lymphadenopathy. There is a small amount of free fluid in the cul-de-sac. Bones are unremarkable. No abnormal parenchymal enhancement. Procedure Note Bekah Shi MD - 07/09/2024 MR PELVIS WO AND W CONTRAST MRI OF THE PELVIS WITHOUT AND WITH IV CONTRAST HISTORY: Ovarian lesion on ultrasound. Patient reports question ofhistory of ovarian cyst mass. PRIOR STUDIES: Pelvic ultrasound performed [06/30/2024]. CT abdomen [id number]/13/2024 TECHNIQUE: Multiplanar and multi sequential pelvic MRI of the pelvis preand postcontrast per department protocol. The patient received [20] cc IVDotarem contrast. FINDINGS: The uterus measures 6.8 x 3.6 x 6.2 cm. The endometrium measures 8 mm in thickness. The right ovary measures 1.6 x 2.8 x 2.2 cm. There is a 1.0 x 0.7 x 0.8 cmlesion just posterior and medial to the right ovary, corresponding to theCT and ultrasound finding. This lesion follows fat signal on all sequencesand demonstrates no enhancement. The left ovary measures 1.6 x 2.1 x 2.5 cm. There is no lymphadenopathy. There is a small amount of free fluid in the cul-de-sac. Bones are unremarkable. No abnormal parenchymal enhancement. IMPRESSION: 1.0 x 0.7 x 0.8 cm fat signal lesion adjacent to the right ovarycorresponding to the CT and ultrasound finding. Lipoma and dermoid are inthe differential. -------- FINAL REPORT -------- Dictated By: Bekah Shi Dictated Date: 07/09/2024 10:24 ET Assigned Physician: Bekah Shi Reviewed and Electronically Signed By: Bekah Shi Signed Date: 07/09/2024 11:05 ET Workstation ID: [id number] Transcribed By: Self Edit Transcribed Date: 07/09/2024 10:24 ET us Rebecca Encinas MD [facility] [place]EDURES Final Result * MR Abdomen wo and w Contrast (07/08/2024 1:17 PM EST) Anatomical Region Laterality Modality Body Magnetic Resonan ce 07/08/2024 3:18 PM EST Impressions 07/08/2024 5:24 PM EST 1. Small amount of free fluid within the upper abdomen is not seen on prior CT examination. 2. Very subtle enhancing lesion seen on prior CT within the posterior right hepatic lobe not well seen on MRI. ??There is artifact extending through the expected location of the liver lesion. ??Recommend CT abdomen and pelvis liver mass protocol to evaluate for mass lesion as well as free fluid seen on MRI examination. Epic message was sent to Dr. Encinas 5:24 PM on 07/08/2024 -------- FINAL REPORT -------- Dictated By: Demetrius Mora Dictated Date: 07/08/2024 15:18 ET Assigned Physician: Demetrius Mora Reviewed and Electronically Signed By: Demetrius Mora Signed Date: 07/08/2024 17:24 ET Workstation ID: [id number] Transcribed By: Self Edit Transcribed Date: 07/08/2024 15:48 ET Narrative 07/08/2024 5:24 PM EST MRI ABDOMEN WITH AND WITHOUT CONTRAST CLINICAL HISTORY: Liver lesion on CT COMPARISON: CT abdomen and pelvis from 04/13/2024 TECHNIQUE: Multiplanar, multisequence imaging of the upper abdomen was performed before and after administration of20cc of Dotarem. ??Artifact is identified extending through the posterior liver. COMMENT: The lung bases are within normal limits. The liver demonstrates normal signal characteristics. No significant dropout of signal on in/out phase images. ??No definite mass lesions are identified. ??There is artifact extending to the posterior right hepatic lobe in the expected region of the liver lesion. ??No intra or extrahepatic biliary dilatation. The common bile duct tapers normally. The gallbladder, spleen and pancreas demonstrate normal signal characteristics. No pancreatic ductal dilatation. Adrenal glands and kidneys are within normal limits. Visualized bowel is without obstruction. No significant lymphadenopathy. ??Small amount of free fluid within the upper abdomen. The major arteriovascular structures demonstrate normal signal characteristics. Subcutaneous soft tissues and osseous structures demonstrate normal signal characteristics. Procedure Note Demetrius Mora MD - 07/08/2024 MRI ABDOMEN WITH AND WITHOUT CONTRAST CLINICAL HISTORY: Liver lesion on CT COMPARISON: CT abdomen and pelvis from 04/13/2024 TECHNIQUE: Multiplanar, multisequence imaging of the upper abdomen wasperformed before and after administration of20cc of Dotarem. Artifact isidentified extending through the posterior liver. COMMENT: The lung bases are within normal limits. The liver demonstrates normal signal characteristics. No significantdropout of signal on in/out phase images. No definite mass lesions areidentified. There is artifact extending to the posterior right hepaticlobe in the expected region of the liver lesion. No intra or extrahepaticbiliary dilatation. The common bile duct tapers normally. The gallbladder, spleen and pancreas demonstrate normal signalcharacteristics. No pancreatic ductal dilatation. Adrenal glands and kidneys are within normal limits. Visualized bowel is without obstruction. No significant lymphadenopathy.Small amount of free fluid within the upper abdomen. The major arteriovascular structures demonstrate normal signalcharacteristics. Subcutaneous soft tissues and osseous structures demonstrate normal signalcharacteristics. IMPRESSION: 1. Small amount of free fluid within the upper abdomen is not seen onprior CT examination. 2. Very subtle enhancing lesion seen on prior CT within the posteriorright hepatic lobe not well seen on MRI. There is artifact extendingthrough the expected location of the liver lesion. Recommend CT abdomenand pelvis liver mass protocol to evaluate for mass lesion as well as freefluid seen on MRI examination. [employer] message was sent to Dr. Encinas 5:24 PM on 07/08/2024 -------- FINAL REPORT -------- Dictated By: Demetrius Mora Dictated Date: 07/08/2024 15:18 ET Assigned Physician: Demetrius Mora Reviewed and Electronically Signed By: Demetrius Mora Signed Date: 07/08/2024 17:24 ET Workstation ID: [id number] Transcribed By: Self Edit Transcribed Date: 07/08/2024 15:48 ET Rebecca Encinas MD IMG MRI PROCEDURES Final Result * (ABNORMAL) POC Urine Auto W/O Micro (07/02/2024 9:31 AM EST) [facility] Glucose UA POC 2+(A) Negative, Trace mg/dL Bilirubin UA POC Negative Negative, Small Ketones UA POC Trace Negative, Trace Specific [place] UA POC 1.010 Blood UA POC Trace(A) Negative, Large PH UA POC 5.0 Protein UA POC 3+(A) Negative, >=300 mg/dL Urobilinogen UA POC 0.2 E.U./dL mg/dL Nitrite UA POC Negative Negative Leukocytes UA POC Negative Negative Urine Urine specimen obtained by clean catch procedure / Unknown 07/02/2024 9:31 AM EST Narda SCHWAB POINT OF CARE TEST ENTER/ED IT ORDERABLES Final Result * POC glucose manually resulted (07/02/2024 9:23 AM EST) [facility] Glucose POC Comment:HIGH Blood Capillary blood specimen / Unknown 07/02/2024 9:23 AM EST Narda SCHWAB POINT OF CARE TEST ENTER/ED IT ORDERABLES Final Result * (ABNORMAL) Hemoglobin A1c (06/25/2024 2:07 PM EST) Hemoglobin A1C 11.3(H) <6.5 % LAB CHEMISTRY METHOD 06/25/2024 9:47 PM EST [facility] Mean Bld Glu Estim. 278 mg/dL LAB CHEMISTRY METHOD 06/25/2024 9:47 PM EST [facility] Blood Venous blood specimen / Unknown Venipuncture / Unknown 06/25/2024 2:07 PM EST 06/25/2024 2:07 PM EST Rebecca Encinas MD LAB BLOOD ORDERABLES Final Resul t [facility] [address] [place] [address], [place] [phone] * HIV Screening (11/23/2020) HIV Screening abstracted Historical Provider HEALTH MAINTENANCE Final Result * Hepatitis C Screening (11/23/2020) Pathologist [facility] Hepatitis C Screening abstracted Historical Provider HEALTH MAINTENANCE Final Result * Pap smear (04/12/2020) 04/12/2020 Narrative HISTORICAL TESTING LAB RESULTING AGENCY - 04/14/2020 12:26 PM EST [id number] THINPREP PAP, IMAGED: NEGATIVE FOR SQUAMOUS INTRAEPITHELIAL LESION AND MALIGNANCY . ABUNDANT RED BLOOD CELLS ARE PRESENT. HANNA HUMPHREY(ASCP) (CASE ELECTRONICALLY SIGNED 04 14 2020) ADEQUACY: SATISFACTORY ENDOCERVICAL/TRANSFORMATION ZONE COMPONENT PRESENT. SOURCE: THINPREP PAP HPV IF ASCUS, CERVICAL, IMAGED CLINICAL INFORMATION: HPV IF DIAGNOSIS OF ASCUS. HORMONES, PAP HX NEG. Z12.4, Z01.419 us Johan Askew DO LAB CYTOLOGY ORDERABLES Final Result HISTORICAL TESTING LAB RESULTING AGENCY from Last 3 Months or Most Recently Relevant to Health Maintenance Insurance [facility] Care Teams Therapy Coordinator Relationship Specialty Start Date End Date Rebecca Encinas MD [address] [place] [phone] PCP - General Internal Medicine 09/10/24
--- OUTSIDE RECORDS SUMMARY | 2024-09-27 19:07 | XMS_ITS | Encounter Summary ---
Author Organization [facility] Address [address] [place] [address] Care Team Providers Care Restaurant Host/Hostess Name Role Phone Rebecca Encinas MD Primary Care Provider [phone] Reason for Visit * Reason Onset Date Comments Hospitalization/ER 09/27/2024 Hypertension 09/27/2024 Encounter Details Date Type Department Care Team (Late st Contact Info) Description 09/27/2024 Telephone Adult Medicine [address] [phone] Rebecca Encinas MD [address] [place] [phone] Hospitalization/ER; Hypertension Social History Tobacco Use Types Packs/Day Years Used Date Smoking Tobacco: Every Day Cigarettes Smokeless Tobacco: Never Alcohol Use Standard Drinks/Week Comments Yes 0 (1 standard drink = 0.6 oz pur e alcohol) socially Comments No Sex and Gender Information Value Date Recorded Sex Assigned at Female 04/13/2024 7:52 AM EST Legal Sex Female 5:25 AM EST Gender Identity Female 04/13/2024 7:52 AM EST Sexual Orientation Choose not to disclose 2023 7:52 AM EST documented as of this encounter Progress Notes * Roseline Sharma RN - 09/27/2024 10:09 AM EDT Called pt advised if diastolic is 111 after medication needs to go back to hosp. We have nothing inthe office to bring that down * Jennifer Talbot - 09/27/2024 9:49 AM EDT Hospital/ER follow up appointment needed Hospital patient was treated at: [facility] Was this only an ER visit or was the patient admitted to the hospital? Admitted to the hospital/kept overnight , admitted on 09/22 Date of visit if ER visit only: If patient was admitted what was the date of discharge? 09/25/24 Reason/diagnosis for visit or stay: high BP, edema, BP was 214/140 prior to the hospital, current BP this morning, 177/111, 163/111. Patient was admitted to cardiac unit, now taking Lasix and 2 BP meds. When was the patient told to follow up? Andrew but BP is still high today. Was visit or stay related to an injury? If yes, what was the date of injury (DOI)? No If yes, was the injury due to: Not 3rd republican related documented in this encounter Plan of Treatment Upcoming Encounters Date Type Department Care Team (Late st Contact Info) Description 10/20/2024 8:00 AM EDT Appointment [facility] Xray [address] [place] [address] 11/11/2024 1:00 PM EDT Office Visit Gastroenterology - [place] [facility] [address] [facility] [address] [place] [phone] Charity Wall PA [address] [address] 11/16/2024 1:00 PM EDT Office Visit Adult Medicine [address] [phone] Rebecca Encinas MD [address] [place] [address] 02/11/2025 8:15 AM EDT Appointment [facility] MRI [address] [place] [phone] documented as of this encounter Visit Diagnoses Not on filedocumented in this encounter Additional Health Concerns Assessment Noted Time PHQ-9 Depression Total Score: 11 025 2:47 PM EST documented as of this encounter Care Teams Restaurant Host/Hostess Relationship Specialty Start Date End Date Rebecca Encinas MD [address] [place] [phone] PCP - General Internal Medicine 09/10/24 documented as of this encounter
== END 2024-09-27 16:58 | disposition left against medical advice (07) ==
PROVIDERS: Physician Assistant; Emergency Provider Emergency Medicine; PCP Internal Medicine
DX: R07.89 Other chest pain (principal); R06.02 Shortness of breath; M79.602 Pain in left arm; R10.2 Pelvic and perineal pain; Z79.899 Other long term (current) drug therapy
CPT/HCPCS: 36415; 80053; 82550; 83690; 83880; 84484; 84702; 85025; 93005; 99283

== ENCOUNTER → 2024-09-27 12:07 | Outpatient (BNV) | payer OTHER, SELFPAY | PROVIDERS: PCP Internal Medicine; Visit Provider Internal Medicine Cardiovascular Disease | DX: R94.31 Abnormal electrocardiogram [ECG] [EKG] (principal) | CPT/HCPCS: 93010 ==

== ENCOUNTER 2024-09-28 13:56 | Outpatient (AMB) | payer OTHER, SELFPAY ==
[2024-09-28 14:02] VITALS: BP 142/80; PULSE 95; BMI 37.6
--- NOTE | 2024-09-28 14:02 | A.OFFVIS_ITS ---
Vital Signs 09/28/24 14:02 Height 5 ft 2 in Weight 205 lb 7.533 oz BMI 37.6 BP 142/80 H Blood Pressure Location Lt brachial Position Sitting Pulse 95 Pulse Source Pulse Oximeter Intake [place] [facility] [place]BP remains high (HS) Monument Letterer Required: No Allergies Sulfa (Sulfonamide Antibiotics) [SULFA (SULFONAMIDE ANTIBIOTICS)] Allergy (Unknown, Verified 09/28/24 14:04) HIVES clindamycin Allergy (Verified 09/28/24 14:04) Hives fish derived [fish] Allergy (Verified 09/28/24 14:04) Anaphylaxis Medication List - Last Reconciled 09/28/24 by Alexandr Edmondson NP albuterol sulfate 90 mcg/actuation (Ventolin HFA) 2 puffs inhalation QID PRN amlodipine 10 mg See Protocol PO DAILY@1999 rwfqzsdocl-edcnbqtzgytnh-mtob 50-300-40 mg (Fioricet) 1 cap PO Q8H PRN furosemide (Lasix) 40 mg PO DAILY PRN insulin aspart U-100 (Novolog FlexPen U-100 Insulin aspart) 1 sliding scale dose subcut USEASDIRECTD insulin glargine (Lantus Solostar U-100 Insulin) 25 units subcut BEDTIME loratadine 10 mg PO DAILY losartan 100 mg See Protocol PO DAILY omeprazole 20 mg PO DAILY@0630 ondansetron 4 mg PO Q8H PRN sumatriptan succinate 25 mg PO DAILY PRN HPI Comments Details: This is a 29-year-old female patient presenting for a hospital discharge follow-up. Patient with a history of type 1 diabetes on insulin, hypertension, obesity, and substance use disorder. Patient is accompanied today by her mother. The patient was recently hospitalized for complaints of leg swelling and chest pain during the admission, she was diagnosed with hypertensive emergency as her blood pressures were in the 200s over 100s and new onset congestive heart failure. Patient was treated with antihypertensives and diuretics. Significant proteinuria was also noted for which she has been followed by Nephrology for further evaluation. Since discharge, the patient reports that her blood pressure remains elevated but has shown some improvement. However, she presented to the emergency room yesterday due to left-sided chest pain radiating down her left arm. Her workup thus negative and therefore was discharged home. She reports that these episodes of chest pain are intermittent and generally occur with exertion. Patient denies any associated symptoms of palpitations, dizziness, orthopnea, PND, leg edema, presyncope, or syncope. Patient states that she is compliant with all her prescribed medications. PFSH Family History Father Hypertension Social History Household Members: Family Housing: House Do you presently have visiting nurse or other home services: No Alcohol intake: current Alcohol intake frequency: holidays/special occasions only Patient Tobacco Use Status: Never used Tobacco Substance Use Type: Marijuana service: No Review of Systems ENT Reports dizziness Card Denies chest pain, Denies chest pain at rest, Denies chest pain with activity, Denies rapid heart rate, Denies pedal edema, Denies edema, Denies leg edema, Denies lightheadedness, Denies palpitations, Denies dyspnea, Denies dyspnea on exertion and Denies orthopnea Resp Denies cough, Denies dyspnea and Denies dyspnea on exertion GI Denies hematochezia and Denies change in stool character Musc Denies abnormal gait, Reports limited range of motion, Reports muscle cramps, Denies muscle weakness, Denies numbness, Denies radiating pain into limb, Denies stiffness and Denies tingling Neuro Denies abnormal gait, Reports dizziness, Denies numbness and Denies tingling Endo Denies palpitations Physical Exam Vital Signs: Last Vital Signs Pulse 95 09/28/24 14:02 BP 142/80 H 09/28/24 14:02 BMI result Body Mass Index 37.6 Assessment & Plan Assessment & Plan (1) Chest pain: Code(s): R07.9 - Chest pain, unspecified Category: Medical Plan: Workup in the ER was negative. However, given patient's exertional chest pain with typical features as well as her multiple cardiovascular risk factors including diabetes, obesity, hypertension and a family history of heart disease, we will proceed with a stress echocardiogram to evaluate for underlying ischemia. (2) Acute diastolic (congestive) heart failure: Code(s): I50.31 - Acute diastolic (congestive) heart failure Category: Medical Plan: 09/22/2024-echo study showed normal LV EF between 55-60% and moderate diastolic dysfunction. Clinically euvolemic today. However, patient continues to report of int ermittent leg swelling. Continue 20 mg Lasix therapy. Discussed in detail signs and symptoms to look for with heart failure. Advised low-salt diet, fluid restriction at 2 L per day, and daily weight monitoring. (3) Hypertension: Code(s): I10 - Essential (primary) hypertension Category: Medical Plan: Patient's blood pressure today is mildly elevated however significantly improved at 142/80. Patient states that her blood pressures at home are also elevated however improved since discharge. It has only been few days since patient has started her meds and therefore patient should continue these for the time being. No med changes at this time. Advised patient to continue monitoring blood pressures at home with a goal of blood pressure less than 130/80. 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 Patient plans on following up again. Continue aggressive diabetic management with the goal of A1c less than 7%. Patient is also being followed up for proteinuria by Nephrology. (5) Hospital discharge follow-up: Code(s): Z09 - Encounter for follow-up examination after completed treatment for conditions other than malignant neoplasm Plan: As above. Advised heart healthy diet, regular exercise, losing weight, med compliance, aggressive management of vascular risk factors, and absolute abstinence from alcohol and street drugs including cocaine. Patient verbalizes understanding. We will follow up with the patient in 2 weeks' time with the nurse for a blood pressure check and in the office following stress echo. Advised patient to call the office in case of any concerns or change in symptoms. This note was generated using voice recognition software. While every effort has been made to ensure accuracy and proper history teacher, there may be occasional errors that could affect the content or meaning of the described symptoms. Orders: Orders Lipid Panel Today R07.9 - Chest pain, unspecified CA echo stress exercise Today R07.9 - Chest pain, unspecified Medications: Changed From furosemide (Lasix) 40 mg PO DAILY PRN edema To furosemide (Lasix) 20 mg PO DAILY PRN Coding Level of Care Code Est Pt Level 4 (59527) Complex EM visit Add On G2211 Diagnoses Chest pain R07.9 Acute diastolic (congestive) heart failure I50.31 Hypertension I10 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 E10.21 Hospital discharge follow-up Z09 Time Spent (min) 35 Comment Time spent in reviewing the chart, test results, assessment, counseling and documentation.
--- OUTSIDE RECORDS SUMMARY | 2024-09-28 16:06 | XMS_ITS | Encounter Summary ---
Author Organization [facility] Address [address] [place] [address] Care Team Providers Care Complaint Analyst Name Role Phone Rebecca Encinas MD Primary Care Provider [phone] Reason for Visit * Reason Onset Date Comments Hospitalization/ER 09/27/2024 Hypertension 09/27/2024 Encounter Details Date Type Department Care Team (Late st Contact Info) Description 09/27/2024 Telephone Adult Medicine [address] [phone] Rebecca Encinas MD [address] [place] [id number] Hospitalization/ER; Hypertension Social History Tobacco Use Types [...] appointment needed Hospital patient was treated at: [facility] Was this only an ER visit [...] was the injury due to: Not 3rd constitution party related documented in this encounter Plan of Treatment Upcoming Encounters Date Type Department Care Team (Late st Contact Info) Description 10/20/2024 8:00 AM EDT Appointment [facility] Xray [address] [place] [address] 11/11/2024 1:00 PM EDT Office Visit Gastroenterology - [place] 175 [facility] 175 [facility] [address] [place] [phone] Charity Wall PA [address] [address] 11/16/2024 1:00 PM EDT Office Visit Adult Medicine [address] [phone] Rebecca Encinas MD [address] [place] [address] 02/11/2025 8:15 AM EDT Appointment [facility] [address] [place] [phone] documented as of this encounter Visit Diagnoses Not on filedocumented in this encounter Additional Health Concerns Assessment Noted Time PHQ-9 Depression Total Score: 11 025 2:47 PM EST documented as of this encounter Care Teams Complaint Analyst Relationship Specialty Start Date End Date Rebecca Encinas MD [address] [place] [id number] PCP - General Internal Medicine 09/10/24 documented as of this encounter
--- OUTSIDE RECORDS SUMMARY | 2024-09-28 16:06 | XMS_ITS | Clinical Summary ---
Author Organization [facility] Address [address] [place] [address] Phone Care Team Providers Care Managing Broker Name Role Phone Rebecca Encinas MD Primary Care Provider [phone] Allergies Active Allergy Reactions Criticality Noted Date [...] Type 1 diabetes mellitus wit hout complication ([facility] V24, [facility] V28) 06/25/2024 Depression, major, recurrent , moderate ([facility] V24, [facility] V28) 05/11/2024 Obesity 05/11/2024 Tobacco use disorder [...] Care Team Description 09/27/2024 Telephone Adult Medicine [place] - [address] [phone] Rebecca Encinas MD Hospitalization/ER; Hypertension 08/26/2024 12:45 PM EDT - 08/26/2024 11:59 PM EDT Hospital Encounter Radiology Department - [address] [phone] Ovarian mass, right Discharge Disposition: Home or Self Care 08/19/2024 11:05 AM EDT Lab Draw Station - [address] Gastroesophageal reflux disease, unspecified whether esophagitis present; Nausea and vomiting, unspecified vomiting type; Type 1 diabetes mellitus without complication ([facility] V24, [facility] V28) 08/11/2024 1:00 PM EDT Consult Gastroenterology - [place] [address] [place] [address] Charity Wall PA Gastroesophageal reflux disease, unspecified whether esophagitis present (Primary Dx); Nausea and vomiting, unspecified vomiting type; Epigastric abdominal pain 08/09/2024 2:30 PM EDT - 08/09/2024 11:59 PM EDT Hospital Encounter CT Scan - [address] [phone] Liver lesion Discharge Disposition: Home or Self Care 08/04/2024 11:00 AM EST Office Visit Adult Medicine [place] - [address] [phone] Ryan Cuellar PA Primary hypertension (Primary Dx); Migraine with aura, with intractable migraine, so stated, with status migrainosus 08/04/2024 Telephone Endocrinology - [address] [phone] Narda Sharma PA Medication Problem (NOVOLOG PA) 07/27/2024 2:45 PM EST Procedure visit Obstetrics and Gynecology - [address] [phone] Marbella Pro MD Encounter for IUD insertion (Primary Dx); Screen for STD (sexually transmitted disease); Menorrhagia with irregular cycle 07/12/2024 2:50 PM EST Lab Draw Station - [address] Menorrhagia with irregular cycle 07/12/2024 2:00 PM EST Office Visit Obstetrics and Gynecology - [address] [phone] Marbella Pro MD Menorrhagia with irregular cycle (Primary Dx); Ovarian mass, right 07/08/2024 12:02 PM EST - 07/08/2024 11:59 PM EST Hospital Encounter Radiology Department - [address] [phone] Ovarian mass, right Discharge Disposition: Home or Self Care 07/08/2024 12:02 PM EST - 07/08/2024 11:59 PM EST Hospital Encounter Radiology Department - [address] [phone] Liver lesion Discharge Disposition: Home or Self Care 07/08/2024 Telephone Adult Medicine [place] - [address] [phone] Rebecca Encinas MD 07/02/2024 9:00 AM EST Consult Endocrinology - [address] [phone] Narda Sharma PA Type 1 diabetes mellitus without complication (CMS/HCC V24, CMS/HCC V28) (Primary Dx) 06/30/2024 5:00 PM EST - 06/30/2024 11:59 PM EST Hospital Encounter Radiology Department - [address] [phone] Ovarian mass, right Discharge Disposition: Home or Self Care from Last 3 Months Immunizations Name Administration Dates Next Due DTaP (Infanrix) 6wks to less than 7yo ,09/03/1999,05/04/1998,1997,1997 SCbX-GVA-DIM (Pentacel) 2mo to less than 5yo 09/03/1999,05/04/1998,03/01/1998,1997 [...] ENDOSCOPY 2007 PROCEDURE: UPPER GI ENDOSCOPY/EXAM; COMMENT: [facility] Medical History Medical History Date Comments Type 1 diabetes mellitus (CM S/HCC V24, CMS/HCC V28) DX:Type 1 diabetes mellitus (HCC); COMMENT: [facility] Endocrinology. Dr. Griffin. Dx age 8 Mild [...] Info) Description 10/20/2024 8:00 AM EDT Appointment [facility] Xray [address] [place] [phone] 11/11/2024 1:00 PM EDT Office Visit Gastroenterology [facility] 175 [facility] 175 [facility] [address] [place] [phone] Charity Wall PA 175 [facility] [address] [place] [address] 11/16/2024 1:00 PM EDT Office Visit Adult Medicine [address] [phone] Rebecca Encinas MD [address] [place] [phone] 02/11/2025 8:15 AM EDT Appointment [facility] [address] [place] [address] Health Maintenance Due Date Last [...] Signed Date: 08/26/2024 13:54 ET Workstation ID: [id number] Transcribed By: Self Edit Transcribed Date: 08/26/2024 [...] Signed Date: 08/26/2024 13:54 ET Workstation ID: [id number] Transcribed By: Self Edit Transcribed Date: 08/26/2024 [...] Signed Date: 08/26/2024 13:54 ET Workstation ID: [id number] Transcribed By: Self Edit Transcribed Date: 08/26/2024 [...] Signed Date: 08/26/2024 13:54 ET Workstation ID: [id number] Transcribed By: Self Edit Transcribed Date: 08/26/2024 13:46 ET us Rebecca Encinas MD [facility] US PROCEDURES Final Result * Alpha fetoprotein tumor marker (08/19/2024 11:08 AM EDT) AFP <2.5 0.0 - 8.0 ng/mL LAB CHEMISTRY METHOD 08/19/2024 5:25 PM EDT [facility] Blood Venous blood specimen [...] Re sult [facility] [address] [place] [address], * (ABNORMAL) Basic metabolic panel (08/19/2024 11:08 AM EDT) Sodium 136 133 - 145 mmol/L LAB CHEMISTRY METHOD 08/19/2024 5:15 PM EDT [facility] Potassium 4.7 3.5 - 5.5 mmol/L LAB CHEMISTRY METHOD 08/19/2024 5:15 PM [facility] Chloride 104 96 - 110 mmol/L LAB CHEMISTRY METHOD 08/19/2024 5:15 PM T [facility] CO2 26 21 - 32 mmol/L LAB CHEMISTRY METHOD 08/19/2024 5:15 PM [facility] Anion Gap 6 3 - 11 LAB CHEMISTRY METHOD 08/19/2024 5:15 PM [facility] Glucose 147(H) 70 - 100 mg/dL LAB CHEMISTRY METHOD 08/19/2024 5:15 PM T [facility] BUN 22 5 - 25 mg/dL LAB CHEMISTRY METHOD 08/19/2024 5:15 PM [facility] Creatinine 0.80 0.50 - 1.10 mg/dL LAB CHEMISTRY METHOD 08/19/2024 5:15 PM [facility] eGFR 104 >=60 mL/min/1. 73m2 LAB [...] Resul t [facility] [address] [place] [address], [place] [phone] * CT Abdomen Pelvis wo and w [...] Signed Date: 08/09/2024 16:47 ET Workstation ID: [id number] Transcribed By: Self Edit Transcribed Date: 08/09/2024 [...] Signed Date: 08/09/2024 16:47 ET Workstation ID: [id number] Transcribed By: Self Edit Transcribed Date: 08/09/2024 16:28 ET us Rebecac Encinas MD [facility] CT PROCEDURES Final Result * Chlamydia trachomatis [...] GENERAL ORDERABLES Final Result Performing Organization Address [facility]/ZIP Co de Phone Number [facility] [address] [place] [address], [place] [phone] * Thyroid stimulating hormone with reflex to free t4 and free t3 (07/12/2024 2:53 PM EST) [facility] TSH 1.98 0.40 - 4.00 mcIU/mL LAB CHEMISTRY METHOD 07/12/2024 5:38 PM EST [facility] Blood Venous blood specimen / Unknown Venipuncture / Unknown 07/12/2024 2:53 PM EST 07/12/2024 2:53 PM EST us Marbella Pro MD LAB BLOOD ORDERABLES Final Result Performing Organization Address [facility]/ZIP Co de Phone Number [facility] [address] [place] [address], [place] [phone] * (ABNORMAL) CBC auto differential (07/12/2024 2:53 PM EST) [facility] WBC 9.3 4.8 - 10.8 K/mcL LAB HEMETOLOGY METHOD 07/12/2024 4:40 PM EST [facility] RBC 4.10 3.80 - 4.80 M/mcL LAB HEMETOLOGY METHOD 07/12/2024 4:40 PM EST [facility] Hemoglobin 12.2 11.5 - 16.0 g/dL LAB HEMETOLOGY METHOD 07/12/2024 4:40 PM [facility] Hematocrit 37.6 35.0 - 47.0 % LAB HEMETOLOGY METHOD 07/12/2024 4:40 PM [facility] MCV 91.9 79.0 - 98.0 FL LAB HEMETOLOGY METHOD 07/12/2024 4:40 PM [facility] MCH 29.8 27.0 - 32.0 pcg LAB HEMETOLOGY METHOD 07/12/2024 4:40 PM [facility] MCHC 32.4 32.0 - 37.0 g/dL LAB HEMETOLOGY METHOD 07/12/2024 4:40 PM [facility] RDW 12.2 11.0 - 15.0 % LAB HEMETOLOGY METHOD 07/12/2024 4:40 PM [facility] Platelets 516(H) 130 - 400 K/mcL LAB HEMETOLOGY METHOD 07/12/2024 4:40 PM [facility] MPV 9.2 7.0 - 11.0 FL LAB HEMETOLOGY METHOD 07/12/2024 4:40 PM [facility] NRBC 0.0 <1.0 % LAB HEMETOLOGY METHOD 07/12/2024 4:40 PM [facility] NRBC Absolute 0.00 <0.10 K/mcL LAB HEMETOLOGY METHOD 07/12/2024 4:40 PM [facility] Neutrophils Relative 53.2 % LAB HEMETOLOGY METHOD 07/12/2024 4:40 PM [facility] Lymphocytes Relative 38.4 % LAB HEMETOLOGY METHOD 07/12/2024 4:40 PM [facility] Monocytes Relative 5.8 % LAB HEMETOLOGY METHOD 07/12/2024 4:40 PM [facility] Eosinophils Relative 1.8 % LAB HEMETOLOGY METHOD 07/12/2024 4:40 PM [facility] Basophils Relative 0.6 % LAB HEMETOLOGY METHOD 07/12/2024 4:40 PM [facility] Immature Granulocytes Relative 0.2 % LAB [...] LAB Eosinophils Absolute 0.17 0.00 - 0.50 [facility] LAB HEMETOLOGY METHOD 07/12/2024 4:40 PM EST [facility] Basophils Absolute 0.06 0.00 - 0.20 K/mcL LAB HEMETOLOGY METHOD 07/12/2024 4:40 PM EST [facility] Immature Granulocytes Absolute 0.02 0.00 - 0.03 [facility] LAB HEMETOLOGY METHOD 07/12/2024 4:40 PM EST [facility] Blood Venous blood specimen / Unknown Venipuncture / Unknown 07/12/2024 2:53 PM EST 07/12/2024 2:53 PM EST us Marbella Pro MD LAB BLOOD ORDERABLES Final Result [facility] [address] [place] [address], * MR Pelvis wo and w Contrast [...] Signed Date: 07/09/2024 11:05 ET Workstation ID: [id number] Transcribed By: Self Edit Transcribed Date: 07/09/2024 [...] STUDIES: Pelvic ultrasound performed [06/30/2024]. CT abdomen [id number] TECHNIQUE: Multiplanar and multi sequential pelvic MRI [...] Signed Date: 07/09/2024 11:05 ET Workstation ID: [id number] Transcribed By: Self Edit Transcribed Date: 07/09/2024 10:24 ET us Rebecca Encinas MD [facility] MRI PROCEDURES Final Result * MR Abdomen [...] Signed Date: 07/08/2024 17:24 ET Workstation ID: [id number] Transcribed By: Self Edit Transcribed Date: 07/08/2024 [...] well as freefluid seen on MRI examination. [employer] message was sent to Dr. Encinas 5:24 PM on 07/08/2024 -------- FINAL REPORT -------- Dictated By: Demetrius Mora Dictated Date: 07/08/2024 15:18 ET Assigned Physician: Demetrius Mora Reviewed and Electronically Signed By: Demetrius Mora Signed Date: 07/08/2024 17:24 ET Workstation ID: [id number] Transcribed By: Self Edit Transcribed Date: 07/08/2024 15:48 ET Rebecca Encinas MD IMG MRI PROCEDURES Final Result * (ABNORMAL) POC Urine Auto W/O Micro (07/02/2024 9:31 AM EST) [facility] Glucose UA POC 2+(A) Negative, Trace mg/dL Bilirubin UA POC Negative Negative, Small Ketones UA POC Trace Negative, Trace Specific [place] UA POC 1.010 Blood UA POC Trace(A) [...] glucose manually resulted (07/02/2024 9:23 AM EST) [facility] Glucose POC Comment:HIGH Blood Capillary blood specimen [...] Resul t [facility] [address] [place] [address], [place] [phone] * HIV Screening (11/23/2020) HIV Screening abstracted Historical Provider HEALTH MAINTENANCE Final Result * Hepatitis C Screening (11/23/2020) Pathologist [facility] Hepatitis C Screening abstracted Historical Provider HEALTH MAINTENANCE Final Result * Pap smear (04/12/2020) 04/12/2020 Narrative HISTORICAL TESTING LAB RESULTING AGENCY - 04/14/2020 12:26 PM EST [id number] THINPREP PAP, IMAGED: NEGATIVE FOR SQUAMOUS INTRAEPITHELIAL [...] Most Recently Relevant to Health Maintenance Insurance [facility] Care Teams Managing Broker Relationship Specialty Start Date End Date Rebecca Encinas MD [address] [place] [id number] PCP - General Internal Medicine 09/10/24
== END 2024-09-28 14:44 | disposition home or self-care (01) ==
LOC: HO.HCS 13:57
PROVIDERS: PCP Internal Medicine
DX: R07.9 Chest pain, unspecified (principal); I50.31 Acute diastolic (congestive) heart failure; I10 Essential (primary) hypertension; E10.21 Type 1 diabetes mellitus with diabetic nephropathy; Z09 Encounter for follow-up examination after completed treatment for conditions other than malignant neoplasm
CPT/HCPCS: 99214; G2211

== ENCOUNTER → 2024-09-28 13:56 | Outpatient (BNVA) | payer OTHER, SELFPAY | PROVIDERS: PCP Internal Medicine | DX: I11.0 Hypertensive heart disease with heart failure (principal); I50.31 Acute diastolic (congestive) heart failure; R07.9 Chest pain, unspecified; E10.21 Type 1 diabetes mellitus with diabetic nephropathy; Z09 Encounter for follow-up examination after completed treatment for conditions other than malignant neoplasm; Z79.899 Other long term (current) drug therapy | CPT/HCPCS: 99212 ==

== ENCOUNTER 2024-10-15 16:06 | Outpatient (AMB) | payer OTHER, SELFPAY ==
--- NOTE | 2024-10-15 16:17 | HO.NEPHOV_ITS ---
Vital Signs 10/15/24 16:20 Height 5 ft 2 in Weight 205 lb 4 oz BMI 37.5 BP 80/60 L Blood Pressure Location Lt brachial Position Sitting Pulse 107 H Pulse Source Pulse Oximeter Pulse Oximetry (%) 107 H Oxygen Delivery Method Room Air Intake Visit Reasons: HFU-LV Torch Operator Required: No Accompanied by: Self / Same As Patient Allergies Sulfa (Sulfonamide Antibiotics) [SULFA (SULFONAMIDE ANTIBIOTICS)] Allergy (Unknown, Verified 10/15/24 16:20) HIVES clindamycin Allergy (Verified 10/15/24 16:20) Hives fish derived [fish] Allergy (Verified 10/15/24 16:20) Anaphylaxis HPI Comments Details: 29-year-old female with type 1 diabetes, hypertension and prior alcohol/cocaine use who recently presented to [facility] with lower extremity swelling, orthopnea over the last 2 weeks with associated PND with cough. She reports exertional dyspnea around the same time. She reports she checked her blood pressure which was noted to be 214/140 at home. she had been on Norvasc 5 mg daily for about 3 months prior to the last ER visit. Of note, the patient's urine drug screen was positive for cocaine and marijuana at that time. She reports that previously she was a heavy cocaine user in conjunction with her alcohol use. However for about the last 1 year she has significantly cut back on her alcohol use drinking only once or twice a month. She reports that her cocaine use prior to this most recent one was ?months ago?. In the emergency room the patient was noted to have blood pressure readings over 200/100. She was treated with 0.1 mg of clonidine & further workup which included chest imaging showed interstitial prominence. She initially had crackles on exam and was noted to have 2+ pitting edema. She was also noted to have borderline hypoxia with an SpO2 of 90% on room air. She was admitted for further treatment of hypertensive urgency and possible new onset CHF/cardiomyopathy. She feels improved and her BP control has been better but not at goal. She was seen in F/U by cardiology and increased her losartan from 100 mg to 200 mg daily. She feels dizzy intermittently with systolic BP of 80 coming to office today. She claimed to have been abstaining from cocaine. She feels improved clinically and did not have any other new complaints at the time of this office visit. 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 Cocaine use Type 1 diabetes Family History Father Hypertension Social History Household Members: Family Housing: House Do you presently have visiting nurse or other home services: No Alcohol intake: current Alcohol intake frequency: holidays/special occasions only Patient Tobacco Use Status: Never used Tobacco Substance Use Type: Marijuana service: No Review of Systems Const All systems reviewed & are unremarkable except as noted in HPI and below Physical Exam Vital Signs: Last Vital Signs Pulse 107 H 10/15/24 16:20 BP 80/60 L 10/15/24 16:20 Pulse Ox 107 H 10/15/24 16:20 Oxygen Delivery Method Room Air 10/15/24 16:20 BMI result Body Mass Index 37.5 Const General: comfortable and no acute distress Orientation/consciousness: patient oriented x3 HEENT Head: Yes normocephalic Mouth: Normal oral and palatal mucosa present Eyes EOM: EOMs intact bilaterally Neck Neck: Yes supple Resp Auscultation: clear to auscultation bilaterally Cardio Jugular venous distension: no JVD Rate: regular rate GI Palpation (GI): Soft to palpation Auscultation: normal bowel sounds General: Yes no CVA tenderness Back/Spine/Pelvis Back: no CVA tenderness Skin General skin exam: no rashes or lesions noted Neuro General: patient oriented x3 and moves all extremities Extrem General: Yes no pedal edema Results Reviewed Nephrology Results: Hgb 13.9 g/dl (12.0-16.0) 09/27/24 WBC 10.2 X10*3/uL (4.8-10.8) 09/27/24 Plt Count 390 X10*3/uL (160-400) 09/27/24 Sodium 139 mmol/L (135-145) 09/27/24 Potassium 3.9 mmol/L (3.3-5.1) 09/27/24 Chloride 104 mmol/L (96-108) 09/27/24 Carbon Dioxide 24 mmol/L (22-29) 09/27/24 BUN 14 mg/dL (9-16) 09/27/24 Creatinine 0.74 mg/dL (0.5-1.4) 09/27/24 Calcium 8.9 mg/dL (8.4-10.2) 09/27/24 Urine Protein >=1000 (4+) mg/dL (Neg-Trace) H 5 Assessment & Plan Assessment & Plan (1) Diabetic nephropathy: Code(s): E11.21 - Type 2 diabetes mellitus with diabetic nephropathy Category: Medical Qualifiers: Diabetes mellitus type: type 1 Qualified Code(s): E10.21 - Type 1 diabetes mellitus with diabetic nephropathy (2) Hypertension: Code(s): I10 - Essential (primary) hypertension Category: Medical Qualifiers: Hypertension type: primary hypertension Qualified Code(s): I10 - Essential (primary) hypertension Plan Type 1 DM with diabetic nephropathy Has Diastolic dysfunction by ECHO Has significant proteinuria & retinopathy Renal function normal. BP low after losartan increased to 200 mg daily by cards Reduced losartan to 100 mg daily. Needs to abstain from cocaine If more medications are needed for BP control, will switch Amlodipine to Diltiazem ( Diltiazem also has anti proteinuric effect) Shall follow up in office in 1 M; Answered all questions Coding Level of Care Code Est Pt Level 4 (36893) Diagnoses 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 Primary hypertension I10 Hypertension type: primary hypertension
[2024-10-15 16:20] VITALS: BP 80/60; PULSE 107; O2SAT 107; BMI 37.5
== END 2024-10-15 16:40 | disposition home or self-care (01) ==
LOC: HO.HKA 16:07
PROVIDERS: PCP Internal Medicine; Visit Provider Internal Medicine Nephrology
DX: E10.21 Type 1 diabetes mellitus with diabetic nephropathy (principal); I10 Essential (primary) hypertension
CPT/HCPCS: 99214

== ENCOUNTER → 2024-10-15 16:06 | Outpatient (BNVA) | payer OTHER, SELFPAY | PROVIDERS: PCP Internal Medicine; Visit Provider Internal Medicine Nephrology | DX: E10.21 Type 1 diabetes mellitus with diabetic nephropathy (principal); I10 Essential (primary) hypertension | CPT/HCPCS: 99212 ==

== ENCOUNTER → 2024-11-09 08:23 | Outpatient (BNVA) | payer OTHER, SELFPAY | PROVIDERS: PCP Internal Medicine ==

== ENCOUNTER → 2024-11-17 10:58 | Outpatient (REF) | payer OTHER, SELFPAY ==
--- NOTE | 2024-11-17 11:02 | CA_ITS ---
Acquisition Time: 2024-11-17 11:29:09 Total Exercise Time: 00:05:40 Test Indications: CHEST PAIN Medications: Protocol: ALLYSSA Max HR: 160 BPM 82% of Pred: 193 BPM Max BP: 200/100 mmHG Max Work Load: 7.0 METS Exercise stress test with exercise 5 mins 40 secs of Allyssa Protocol, achieving 79% MPHr, with reports of severe SOB and dizziness requesting to stop, without any chest pain, without any arrythmias, with normotensive response to exercise - baseline HTN 138/104- that dottie to 200/100. Without any EKG changes meeting criteria for ischemia at the achieved workload. In recovery, pt's dizziness resolved and breathing improved. BP improved to 140/90. Echo images were obatined by tech at rest and postpeak exercise. Definity contrast utilized. Test reviewed with Dr. Guzman. Referred By: Alexandr Edmondson Electronically Signed By: Alexandr Edmondson
== END ==
LOC: HO.CARD 10:58
PROVIDERS: PCP Internal Medicine
DX: R07.9 Chest pain, unspecified (principal)
CPT/HCPCS: 93350; Q9957

== ENCOUNTER → 2024-11-17 11:02 | Outpatient (BNV) | payer OTHER, SELFPAY | PROVIDERS: PCP Internal Medicine | DX: R07.9 Chest pain, unspecified (principal); I51.89 Other ill-defined heart diseases; R06.02 Shortness of breath | CPT/HCPCS: 93016; 93018; 93350; 93352 ==

== ENCOUNTER 2024-11-19 13:25 | Outpatient (AMB) | payer OTHER, SELFPAY ==
--- NOTE | 2024-11-19 13:33 | HO.NEPHOV_ITS ---
Vital Signs 11/19/24 13:35 Height 5 ft 2 in Weight 210 lb 4 oz BMI 38.5 BP 130/90 H Blood Pressure Location Lt brachial Position Sitting Pulse 98 Pulse Source Pulse Oximeter Pulse Oximetry (%) 97 Oxygen Delivery Method Room Air Intake Visit Reasons: 1mon follow-up No labs-LVM Ophthalmic Technologist Required: No Accompanied by: Sister Allergies Sulfa (Sulfonamide Antibiotics) (SULFA (SULFONAMIDE ANTIBIOTICS)) Allergy (Unknown, Verified 11/19/24 13:35) HIVES clindamycin Allergy (Verified 11/19/24 13:35) Hives fish derived (fish) Allergy (Verified 11/19/24 13:35) Anaphylaxis HPI Comments Details: 29-year-old female with type 1 diabetes, hypertension and prior alcohol/cocaine use who recently presented to [facility] ER with lower extremity swelling, orthopnea over the last 2 weeks with associated PND with cough. She reports exertional dyspnea around the same time. She reports she checked her blood pressure which was noted to be 214/140 at home. she had been on Norvasc 5 mg daily for about 3 months prior to the last ER visit. Of note, the patient's urine drug screen was positive for cocaine and marijuana at that time. She reports that previously she was a heavy cocaine user in conjunction with her alcohol use. However for about the last 1 year she has significantly cut back on her alcohol use drinking only once or twice a month. She reports that her cocaine use prior to this most recent one was ?months ago?. In the emergency room the patient was noted to have blood pressure readings over 200/100. She was treated with 0.1 mg of clonidine & further workup which included chest imaging showed interstitial prominence. She initially had crackles on exam and was noted to have 2+ pitting edema. She was also noted to have borderline hypoxia with an SpO2 of 90% on room air. She was admitted for further treatment of hypertensive urgency and possible new onset CHF/cardiomyopathy. She feels improved and her BP control has been better but not at goal. She was seen in F/U by cardiology and increased her losartan from 100 mg to 200 mg daily. At the last office visit she was feeling dizzy intermittently with systolic BP of 80 . She claimed to have been abstaining from cocaine. She feels improved clinically and did not have any other new complaints at the time of this office visit. 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 Cocaine use Family History Father Hypertension Social History Household Members: Family Housing: House Do you presently have visiting nurse or other home services: No Alcohol intake: current Alcohol intake frequency: holidays/special occasions only Patient Tobacco Use Status: Never used Tobacco Substance Use Type: Marijuana service: No Review of Systems Const All systems reviewed & are unremarkable except as noted in HPI and below Physical Exam Vital Signs: Last Vital Signs Pulse 98 11/19/24 13:35 BP 130/90 H 11/19/24 13:35 Pulse Ox 97 11/19/24 13:35 Oxygen Delivery Method Room Air 11/19/24 13:35 BMI result Body Mass Index 38.5 Const General: comfortable and no acute distress Orientation/consciousness: patient oriented x3 HEENT Head: Yes normocephalic Mouth: Normal oral and palatal mucosa present Eyes EOM: EOMs intact bilaterally Neck Neck: Yes supple Resp Auscultation: clear to auscultation bilaterally Cardio Jugular venous distension: no JVD Rate: regular rate GI Palpation (GI): Soft to palpation Auscultation: normal bowel sounds General: Yes no CVA tenderness Back/Spine/Pelvis Back: no CVA tenderness Skin General skin exam: no rashes or lesions noted Neuro General: patient oriented x3 and moves all extremities Extrem General: Yes no pedal edema Results Reviewed Nephrology Results: 2 Hgb, (12.0-16.0) 13.9 g/dl 09/27/24 WBC, (4.8-10.8) 10.2 X10*3/uL 09/27/24 Plt Count, (160-400) 390 X10*3/uL 09/27/24 Sodium, (135-145) 139 mmol/L 09/27/24 Potassium, (3.3-5.1) 3.9 mmol/L 09/27/24 Chloride, (96-108) 104 mmol/L 09/27/24 Carbon Dioxide, (22-29) 24 mmol/L 09/27/24 BUN, (9-16) 14 mg/dL 09/27/24 Creatinine, (0.5-1.4) 0.74 mg/dL 09/27/24 Calcium, (8.4-10.2) 8.9 mg/dL Δ 09/27/24 Assessment & Plan Assessment & Plan (1) Type 1 diabetes: Code(s): E10.9 - Type 1 diabetes mellitus without complications Category: Medical Qualifiers: Diabetes mellitus complication status: with kidney complications Diabetes mellitus complication detail: with nephropathy Qualified Code(s): E10.21 - Type 1 diabetes mellitus with diabetic nephropathy (2) Hypertension: Code(s): I10 - Essential (primary) hypertension Category: Medical Qualifiers: Hypertension type: primary hypertension Qualified Code(s): I10 - Essential (primary) hypertension (3) Diabetic nephropathy: Code(s): E11.21 - Type 2 diabetes mellitus with diabetic nephropathy Category: Medical Qualifiers: Diabetes mellitus type: type 1 Qualified Code(s): 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 BP stable after losartan decreased to 100 mg daily Needs to abstain from cocaine If more medications are needed for BP control, will switch Amlodipine to Diltiazem ( Diltiazem also has anti proteinuric effect) Endocrine referral made for Type 1 DM management Shall follow up in office in 3 M; Answered all questions Orders: Orders Creatinine 3 Months E10.9 - Type 1 diabetes mellitus without complications Blood Urea Nitrogen 3 Months E10.9 - Type 1 diabetes mellitus without complications Electrolytes 3 Months E10.9 - Type 1 diabetes mellitus without complications Calcium 3 Months E10.9 - Type 1 diabetes mellitus without complications Protein Creatinine Ratio, Ur 3 Months E10.21 - Type 1 diabetes mellitus with diabetic nephropathy, I10 - Essential (primary) hypertension Referrals Endocrinology Referral E10.9 - Type 1 diabetes mellitus without complications Medications: New furosemide (Lasix) 20 mg PO DAILY PRN 30 tabs 5RF edema Coding Level of Care Code Est Pt Level 4 (61958) Diagnoses Type 1 diabetes mellitus with nephropathy E10. 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
[2024-11-19 13:35] VITALS: BP 130/90; PULSE 98; O2SAT 97; BMI 38.5
== END 2024-11-19 13:51 | disposition home or self-care (01) ==
LOC: HO.HKA 13:25
PROVIDERS: PCP Internal Medicine; Visit Provider Internal Medicine Nephrology
DX: E10.21 Type 1 diabetes mellitus with diabetic nephropathy (principal); I10 Essential (primary) hypertension
CPT/HCPCS: 99214

== ENCOUNTER → 2024-11-19 13:25 | Outpatient (BNVA) | payer OTHER, SELFPAY | PROVIDERS: PCP Internal Medicine; Visit Provider Internal Medicine Nephrology | DX: E10.21 Type 1 diabetes mellitus with diabetic nephropathy (principal); I10 Essential (primary) hypertension; F14.20 Cocaine dependence, uncomplicated; F10.20 Alcohol dependence, uncomplicated | CPT/HCPCS: 99212 ==

== ENCOUNTER 2024-12-01 08:29 | Outpatient (AMB) | payer OTHER, SELFPAY ==
--- NOTE | 2024-12-01 08:34 | A.OFFVIS_ITS ---
Vital Signs 12/01/24 08:38 Height 5 ft 2 in Weight 215 lb 6.266 oz BMI 39.4 BP 124/92 H Blood Pressure Location Rt brachial Position Sitting Pulse 93 Pulse Source Pulse Oximeter Pulse Oximetry (%) 95 Oxygen Delivery Method Room Air Intake Visit Reasons: Type 1 diabetes mellitus without complications Intake Note: New patient present internally referred by Nephrology for Type 1 Diabetes Mellitus. Patient receives Dexcom G7 supplies through: [employer] Last Diabetic Eye exam: Due, patient is requesting a referral. Last Podiatry Visit: Does not see a Occupational Health Manager, patient is requesting a referral reports sharp pains on her feet. Random Glucose: 144 mg/dl HgA1C: 8.7% 09/23/2024 Sap Bobj Developer Required: No Accompanied by: Self / Same As Patient Allergies Sulfa (Sulfonamide Antibiotics) (SULFA (SULFONAMIDE ANTIBIOTICS)) Allergy (Unknown, Verified 12/01/24 08:40) HIVES clindamycin Allergy (Verified 12/01/24 08:40) Hives fish derived (fish) Allergy (Verified 12/01/24 08:40) Anaphylaxis Medication List - Last Reconciled 12/01/24 by Adrian Leal MD albuterol sulfate 90 mcg/actuation (Ventolin HFA) 2 puffs inhalation QID PRN amlodipine 10 mg See Protocol PO DAILY@1999 blood-glucose sensor (Dexcom G7 Sensor device) As directed esomeprazole magnesium 40 mg PO QAM furosemide (Lasix) 20 mg PO DAILY PRN insulin aspart U-100 (Novolog FlexPen U-100 Insulin aspart) 1 sliding scale dose subcut USEASDIRECTD insulin glargine (Lantus Solostar U-100 Insulin) 40 units subcut BEDTIME loratadine 10 mg PO DAILY losartan 200 mg (2 x 100 mg) PO DAILY omeprazole 20 mg PO DAILY@0630 ondansetron 4 mg PO Q8H PRN sumatriptan succinate 25 mg PO DAILY PRN HPI Comments Details: 29 YO F with is seen in consultation for T1DM at the request of PCP. Recently admitted with DKA to [facility] on found to have positive cocaine screen Initially diagnosed with T1DM in since age 8 when presented with DKA .Mom and sister have Type 1 DM Was initially started on treatment with insulin .Saw adult endo at [facility] Current regimen: Non-compliant take Glargine but not Novolog Lantus 40 units Novolog carb 1:5 for meals for correction 1:20 Per the CGM Dexcom CGMS is active 94 % of time . data the patient's predicted A1C is 9.9 % Avg glucose is 274 . Variability of 105 The patient's blood sugars were in target 20% of the time, above target 79% of the time, and below target <1% of the time. Pen shows persistent hyperglycemia throughout the day with small post-dinner excursions Most recent A1C: [], [down] from prior of []. Reports low sugars rarely . but before was hypoglycemia in morning Treats lows with OBDULIO trejo . Checks sugar after to ensure it is rising. Follows the rule of 15's. Family history of autoimmunity in as above Not Has eyes checked yearly, last eye exam several yrs ago , has retinopathy. Has neuropathy, last foot exam [], Not sees podiatry. Has nephropathy, on CHERYL/ARB. followed by nephrology Has HLD, Not on statin. Not [ history of CAD. Has diastolic HF Not Had diabetes education. Diet/Carb counting: Yes Has prior episodes of DKA. within yr Has prior severe episodes of hypoglycemia requiring help or hospitalization but not recently Labs: PFSH Medical History Type 1 diabetes Hypertension 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 Cocaine use Surgical History (Updated 12/01/24 @ 08:42 by QUAN Cuenca) No pertinent past surgical history Family History Father Hypertension Social History Household Members: Family Housing: House Do you presently have visiting nurse or other home services: No Alcohol intake: current Alcohol intake frequency: holidays/special occasions only Patient Tobacco Use Status: Never used Tobacco Substance Use Type: Marijuana service: No Physical Exam Absence of Cushingoid features. Absence of acromegalic features. Neck exam reveals nl size thyroid about 15 gms. No thyroid nodules palpable. No carotid bruits present. Lungs CTA. Heart S1 S2, Reg R/R. No M/R/ G. Skin exam reveals absence of vitiligo or acanthosis nigricans. Abdominal exam reveals Soft NT/ND with NA BS. No organomegaly present. Extrem Other: Visual exam of foot performed. No ulcerations or open lesions. No onchomycosis, no callouses.Pulses 2 + distally. Sensation intact to monofilament exam. Vibratory sensation sensed decreased with 128 Hz tuning fork Assessment & Plan Assessment & Plan (1) Type 1 diabetes: Code(s): E10.9 - Type 1 diabetes mellitus without complications Category: Medical Qualifiers: Diabetes mellitus complication detail: with nephropathy Diabetes mellitus complication status: with kidney complications Qualified Code(s): E10.21 - Type 1 diabetes mellitus with diabetic nephropathy Plan: This is a 29-year-old white female with a history of type 1 diabetes being treated with basal-bolus insulin with poor glycemic control and known microvascular complications namely proteinuria/CKD and retinopathy. Plan is to gradually increase Lantus by 6 units every 4 days to achieve fasting blood sugar 150-200 . Stressed compliance with NovoLog and renewed prescription. Will have patient see CDE and health club attendant. Went over the correlation between poor glycemic control and development and progression of complications with patient. Will have patient check lipid profile ordered by primary care provider as well as TSH and free T4. Made referral to Podiatry and Ophthalmology. Patient would be a good candidate to returned to the insulin pump namely tandem T slim pump and will discuss this with language assistant when she meets. Patient will discuss neuropathic pain with medical sales associate when she me ets and may consider giving a neurology or pain management consult and future patient has tried Neurontin/gabapentin in past without success and does not want to try Cymbalta Orders: Orders Free T4 (Free Thyroxine) Today E10.21 - Type 1 diabetes mellitus with diabetic nephropathy Thyroid Stimulating Hormone Today E10.21 - Type 1 diabetes mellitus with diabetic nephropathy Referrals Nutrition/Dietitian Referral E10.21 - Type 1 diabetes mellitus with diabetic nephropathy Diabetes Education Referral E10.21 - Type 1 diabetes mellitus with diabetic nephropathy Podiatry Referral E10.21 - Type 1 diabetes mellitus with diabetic nephropathy Ophthalmology Referral E10.21 - Type 1 diabetes mellitus with diabetic nephropathy Medications: New glucagon 3 mg/actuation (Baqsimi) 3 mg intranasal ONCE 2 ea 0RF Refilled insulin aspart U-100 (Novolog FlexPen U-100 Insulin aspart) 1 sliding scale dose subcut USEASDIRECTD 15 mL 0RF Coding Level of Care Code New Pt Level 5 (49295) Complex EM visit Add On G2211 Diagnoses Type 1 diabetes mellitus with nephropathy E10.21 Diabetes mellitus complication detail: with nephropathy Diabetes mellitus complication status: with kidney complications
--- OUTSIDE RECORDS SUMMARY | 2024-12-01 08:34 | XMS_ITS | Clinical Summary ---
Author Organization [facility] Address [address] [place] [address] Phone Care Team Providers [employer] Founder Name Role Phone Rebecca Encinas MD Primary Care Provider [phone] Allergies Active Allergy Reactions Criticality Noted Date Comments Clindamycin 11/25/2019 Other Reaction(s): Rash/Dermatitis Other 11/03/2014 SEASONAL Shellfish Derived 05/27/2024 Sulfa (Sulfonamide Antibiotics) Hives 04/12/2024 Medications medical supply, miscellaneous (MISCELLANEOUS MEDICAL SUPPLY MISC) SYRINGE-NEEDL E, DISP, 3 ML 25G X 5/8 3 ML MISC To inject medication into the skin every 3 months. 021 Active loratadine (CLARITIN) 10 mg tablet Take 10 mg by mouth daily. Active CHOLECALCIFEROL, VITAMIN D3, ORAL Take 1 Tab by mouth daily. Active hydrOXYzine HCL (ATARAX) 25 mg tablet 1 TABLET BY MOUTH EVERY 6 HOURS,X5 DAYS NEEDED FOR ANXIETY 024 Active insulin glargine (Lantus Solostar U-100 Insulin) 100 unit/mL (3 mL) injection pen 50 units Sc at bedtime 15 mL 11 025 Active glucagon (Gvoke HypoPen 2-Pack) 0.5 mg/0.1 mL auto-injector Inject 0.5 mg under the skin if needed (low blood sugar). 0.2 each 3 025 Active insulin aspart (NovoLOG FlexPen) 100 unit/mL (3 mL) injection pen 1 TO 5 UNITS FOR CARBS .1 TO 20 UNITS FOR BLOOD SUGAR ABOVE 120 SLIDING SCALE Dispense aspart , generic only 15 mL 11 Active acetaminophen (TYLENOL) 500 mg tablet TAKE 1 BY MOUTH EVERY 6 HOURS NEEDED FOR PAIN Active furosemide (LASIX) 20 mg tablet Take 1 tablet (20 mg total) by mouth 1 (one) time each day. Active losartan (COZAAR) 100 mg tablet Take 1 tablet (100 mg total) by mouth 1 (one) time each day. Active albuterol HFA (PROAIR HFA ; PROVENTIL HFA ; VENTOLIN HFA) 90 mcg/actuation inhalerIndication s:Mild intermittent asthma without complication Inhale 2 puffs by mouth every 4 (four) hours if needed for wheezing. 6.7 g 1 Active amLODIPine (NORVASC) 10 mg tablet Take 1 tablet (10 mg total) by mouth 1 (one) time each day. 90 tablet 1 Active esomeprazole (NexIUM) [address] capsule Take 1 capsule (40 mg total) by mouth 1 (one) time each day before breakfast. Do not open capsule. 30 each 3 025 2025 Active SUMAtriptan (IMITREX) 100 mg tablet Take 1 tablet (100 mg total) by mouth 1 (one) time if needed for migraine. May repeat dose once in 2 hours if no relief. Do not exceed 2 doses in 24 hours. 9 tablet 1 025 2025 Active SUMAtriptan (IMITREX) 25 mg tablet May repeat dose once in 2 hours if no relief. Do not exceed 2 doses in 24 hours. 9 tablet 2 025 2024 Discontinued omeprazole (PRILOSEC) 20 mg tablet,delayed release (DR/EC) Take 1 tablet (20 mg total) by mouth 1 (one) time each day. 90 tablet 3 025 2024 Discontinued ondansetron ODT (ZOFRAN-ODT) 4 mg disintegrating tablet Dissolve 1 tablet (4 mg total) on top of the tongue every 8 (eight) hours if needed for nausea. 30 tablet 2 025 2024 Discontinued doxycycline (VIBRAMYCIN) 100 mg capsule Take 1 capsule (100 mg total) by mouth 2 (two) times a day. 025 2024 Discontinued(T herapy completed) SUMAtriptan (IMITREX) 25 mg tablet TAKE 1 TABLET BY MOUTH ONCEMAY REPEAT DOSE ONCE IN 2 HOURS IF NO RELIEF. DO NOT EXCEED 2 DOSES IN 24 HOURS. 9 tablet 4 025 2024 Discontinued(D ose adjustment) ondansetron ODT (ZOFRAN-ODT) 8 mg disintegrating tablet Dissolve 1 tablet (8 mg total) on top of the tongue every 8 (eight) hours if needed for nausea or vomiting for up to 7 days. 20 tablet 025 2024 Active Problems Problem Noted Date Diagnosed Date Cocaine use disorder in remission 10/20/2024 Mild intermittent asthma without complication Chronic diastolic heart failure (CMS/HCC V24, CM S/HCC V28) 10/20/2024 Menorrhagia with irregular cycle 07/12/2024 Assessment & [...] Type 1 diabetes mellitus wit hout complication (CMS/HCC V24, CMS/HCC V28) 06/25/2024 Depression, major, recurrent , moderate (CMS/HCC V24, CMS/HCC V28) 05/11/2024 Obesity 05/11/2024 Tobacco use disorder [...] Encounters Date Type Department Care Team Description 11/16/2024 1:00 PM EDT Office Visit [address] [phone] Rebecac Encinas MD Type 1 diabetes mellitus without complication (CMS/HCC V24, CMS/HCC V28) (Primary Dx); Primary hypertension; Migraine with aura, with intractable migraine, so stated, with status migrainosus 11/11/2024 1:00 PM EDT Office Visit Gastroenterology - [place] [address] [facility] 175 [facility] [address] [place] [phone] Charity Wall PA Gastroesophageal reflux disease, unspecified whether esophagitis present (Primary Dx); Nausea and vomiting, unspecified vomiting type; Acute superficial gastritis without hemorrhage; Hepatic adenoma 10/20/2024 9:00 AM EDT Office Visit [address] [phone] Rebecca Encinas MD Hospital discharge follow-up (Primary Dx); Primary hypertension; Mild intermittent asthma without complication; Migraine with aura, with intractable migraine, so stated, with status migrainosus; Cocaine use disorder in remission; Chronic diastolic heart failure (CMS/HCC V24, CMS/HCC V28) 10/20/2024 7:43 AM EDT - [facility] [address] [place] [address] Gastroesophageal reflux disease, unspecified whether esophagitis present; Nausea and vomiting, unspecified vomiting type Discharge Disposition: Home or Self Care 10/12/[address] [phone] Narda Sharma PA PRIOR AUTH 10/06/2024 Telephone Adult Medicine [address] [phone] Rebecca Encinas MD Medication Problem; Hospital Follow-up 09/27/2024 Telephone Adult Medicine [address] [phone] Rebecca Encinas MD Hospitalization/ER; Hypertension from Last 3 Months Immunizations Name Administration Dates Next Due DTaP (Infanrix) 6wks to less than 7yo ,09/03/1999,05/04/1998,1997,1997 [id number] (Pentacel) 2mo to less than 5yo 09/03/1999,05/04/1998,03/01/1998,1997 [...] ENDOSCOPY 2007 PROCEDURE: UPPER GI ENDOSCOPY/EXAM; COMMENT: [facility] Medical History Medical History Date Comments Type 1 diabetes mellitus (CM S/HCC V24, CMS/HCC V28) DX:Type 1 diabetes mellitus (HCC); COMMENT: [facility] Endocrinology. Dr. Griffin. Dx age 8 [...] Sign Reading Time Taken Comments Blood Pressure 135/97 11/16/2024 1:29 PM EDT Pulse 72 11/16/2024 1:06 PM EDT Temperature 36.4 C (97.5 F) 11/16/2024 1:06 PM EDT Respiratory Rate 14 11/16/2024 1:06 PM EDT Oxygen Saturation 99% 11/16/2024 1:06 PM EDT Inhaled Oxygen Concentration - - Weight 94.8 kg (209 lb) 11/16/2024 1:06 PM EDT Height 157.5 cm (5' 2 ) 11/16/2024 1:06 PM EDT Body Mass Index 38.23 11/16/2024 1:06 PM EDT Plan of Treatment Upcoming Encounters Date Type Department Care Team (Late st Contact Info) Description 02/11/2025 8:15 AM EDT Appointment [facility] [address] [place] [address] 03/03/2025 8:30 AM EDT Office Visit Adult Medicine [facility] [address] [place] [phone] Rebecca Encinas MD [address] [place] [phone] 05/16/2025 8:50 AM EST Office Visit Gastroenterology - [place] [facility] [address] [phone] Charity Wall PA [address] [facility] [address] [place] [address] Health Maintenance Due Date Last Done Comments [...] Test (HGBA1C) 12/23/2024 06/25/2024, 04/05/2015 Influenza Vaccine (#1) 2025 , 03/11/2013, 05/04/2012, Additional history exists Depression Screening [...] Procedure Name Priority Date/Time Associated Diagnosis Comments XR UGI W AIR CONTRAST Routine 10/20/2024 8:17 AM EDT Gastroesophageal reflux disease, unspecified whether esophagitis present Nausea and vomiting, unspecified vomiting type BASIC METABOLIC PANEL Routine 08/19/2024 11:08 AM EDT Type 1 diabetes mellitus without complication ([facility] V24, [facility] V28) CHLAMYDIA TRACHOMATIS AND NEISSERIA GONORRHOEAE PCR Routine 07/27/2024 3:19 PM EST Screen for STD (sexually transmitted disease) HEMOGLOBIN A1C Routine 06/25/2024 2:07 PM EST Type 1 diabetes mellitus without complication ([facility] V24, [facility] V28) HEPATITIS C SCREENING Routine 11/23/2020 HIV SCREENING Routine 11/23/2020 PAP SMEAR Routine 04/12/2020 from Last 3 Months or Most Recently Relevant to Health Maintenance Results * XR UGI w Air Contrast (10/20/2024 8:17 AM EDT) Anatomical Region Laterality Modality Body Radiographic Jihan ging 10/20/2024 9:07 AM EDT Impressions 10/20/2024 1:45 PM EDT Prominent gastric mucosal folds suspicious for mild gastritis. -------- FINAL REPORT -------- Dictated By: Kina South Dictated Date: 10/20/2024 09:07 ET Assigned Physician: Nena Cormier Reviewed and Electronically Signed By: Nena Cormier Signed Date: 10/20/2024 13:45 ET Workstation ID: [id number] Transcribed By: Self Edit Transcribed Date: 10/20/2024 09:16 ET Resident/PA/HOT PLATE PRESS OPERATOR: Kina South Narrative 10/20/2024 1:45 PM EDT FINDINGS: Double contrast UGI performed. COMPARISON:. None. HISTORY: Patient is a 29-year-old female with history of GERD J[employer] HELPER radiographs: Liquor Rectifier AP radiograph of the abdomen obtained. Bowel gas pattern is nonobstructive. Moderate amount of stool visualized within the colon, indicating constipation. Bilateral metallic nipple piercings. There is an IUD visualized at midline in the pelvis. Osseous structures are unremarkable. FINDINGS: Effervescent crystals were administered orally. Thick and thin barium was then administered orally under fluoroscopic control. Esophagus: Normal distensibility, motility and mucosal pattern. There is no evidence of obstruction. Stomach: Normal distensibility and motility. There is prominence of mucosal folds along the gastric body. Prompt passage of contrast from the stomach into the duodenal bulb and sweep. No gastric mass or ulceration. Visualization of proximal small bowel is within normal limits. Gastroesophageal reflux: Small amount of spontaneous gastroesophageal reflux visualized. DAP: 547.2 Gycm^2 Procedure Note Nena Cormier MD - 10/20/2024 FINDINGS: Double contrast UGI performed. COMPARISON:. None. HISTORY: Patient is a 29-year-old female with history of GERD J[employer] BU[employer] HELPER radiographs: Liquor Rectifier AP radiograph of the abdomen obtained. Bowel gaspattern is nonobstructive. Moderate amount of stool visualized within thecolon, indicating constipation. Bilateral metallic nipple piercings. Thereis an IUD visualized at midline in the pelvis. Osseous structures areunremarkable. FINDINGS: Effervescent crystals were administered orally. Thick and thinbarium was then administered orally under fluoroscopic control. Esophagus: Normal distensibility, motility and mucosal pattern. There isno evidence of obstruction. Stomach: Normal distensibility and motility. There is prominence ofmucosal folds along the gastric body. Prompt passage of contrast from thestomach into the duodenal bulb and sweep. No gastric mass or ulceration.Visualization of proximal small bowel is within normal limits. Gastroesophageal reflux: Small amount of spontaneous gastroesophagealreflux visualized. DAP: 547.2 Gycm^2 IMPRESSION: Prominent gastric mucosal folds suspicious for mild gastritis. -------- FINAL REPORT -------- Dictated By: Kina South Dictated Date: 10/20/2024 09:07 ET Assigned Physician: Nena Cormier Reviewed and Electronically Signed By: Nena Cormier Signed Date: 10/20/2024 13:45 ET Workstation ID: [id number] Transcribed By: Self Edit Transcribed Date: 10/20/2024 09:16 ET Resident/PA/HOT PLATE PRESS OPERATOR: Kina South us Charity Duke PA IMG FLUOROSCOPY PROCEDURES Fi nal Result * (ABNORMAL) Basic metabolic panel (08/19/2024 11:08 AM EDT) Sodium 136 133 - 145 mmol/L LAB CHEMISTRY METHOD 08/19/2024 5:15 PM [facility] Potassium 4.7 3.5 - 5.5 mmol/L LAB CHEMISTRY METHOD 08/19/2024 5:15 PM [facility] Chloride 104 96 - 110 mmol/L LAB CHEMISTRY METHOD 08/19/2024 5:15 PM [facility] CO2 26 21 - 32 mmol/L LAB CHEMISTRY METHOD 08/19/2024 5:15 PM [facility] Anion Gap 6 3 - 11 LAB CHEMISTRY METHOD 08/19/2024 5:15 PM [facility] Glucose 147(H) 70 - 100 mg/dL LAB CHEMISTRY METHOD 08/19/2024 5:15 PM [facility] BUN 22 5 - 25 mg/dL LAB CHEMISTRY METHOD 08/19/2024 5:15 PM [facility] Creatinine 0.80 0.50 - 1.10 mg/dL LAB CHEMISTRY METHOD 08/19/2024 5:15 PM [facility] eGFR 104 >=60 mL/min/1. 73m2 LAB CHEMISTRY METHOD 08/19/2024 5:15 PM [facility] Comment:Calculation based on the Chronic Kidney Disease Epidemiology Collaboration (CKD-EPI) equation refit without adjustment for race. BUN/Creatinine Ratio 27.5 LAB CHEMISTRY METHOD 08/19/2024 5:15 PM [facility] Calcium 9.4 8.5 - 10.5 mg/dL LAB CHEMISTRY METHOD 08/19/2024 5:15 PM [facility] Blood Venous blood specimen / Unknown Venipuncture / Unknown 08/19/2024 11:08 AM EDT 08/19/2024 11:08 AM EDT Rebecca Encinas MD LAB BLOOD ORDERABLES Final Resul t [facility] [address] [place] [address], [place] [phone] * Chlamydia trachomatis and Neisseria gonorrhoeae molecular study (07/27/2024 3:19 PM EST) Pathologist [facility] Neisseria gonorrhoeae PCR Negative Negative LAB MOLECULAR DIAGNOSTICS METHOD 07/28/2024 9:36 AM EST [facility] Chlamydia trachomatis PCR Negative Negative LAB MOLECULAR DIAGNOSTICS METHOD 07/28/2024 9:36 AM EST [facility] Swab Cervix uteri structure / Unknown Non-blood Collection / Unknown 07/27/2024 3:19 PM EST 07/27/2024 3:19 PM EST Marbella Pro MD LAB MICROBIOLOGY - GENERAL ORDERABLES Final Result Performing Organization Address [facility]/ZIP Co de Phone Number [facility] [address] [place] [address], [place] [phone] * (ABNORMAL) Hemoglobin A1c (06/25/2024 2:07 PM EST) [facility] Hemoglobin A1C 11.3(H) <6.5 % LAB CHEMISTRY METHOD 06/25/2024 9:47 PM EST [facility] Mean Bld Glu Estim. 278 mg/dL LAB CHEMISTRY METHOD 06/25/2024 9:47 PM EST [facility] Blood Venous blood specimen / Unknown Venipuncture / Unknown 06/25/2024 2:07 PM EST 06/25/2024 2:07 PM EST Rebecca Encinas MD LAB BLOOD ORDERABLES Final Resul t Performing Organization Address City/[facility]/ZIP Co de Phone Number [facility] [address] [place] [address], * HIV Screening (11/23/2020) HIV Screening abstracted Historical Provider HEALTH MAINTENANCE Final Result * Hepatitis C Screening (11/23/2020) Hepatitis C Screening abstracted Historical Provider HEALTH MAINTENANCE Final Result * Pap smear (04/12/2020) 04/12/2020 Narrative HISTORICAL TESTING LAB RESULTING AGENCY - 04/14/2020 12:26 PM EST [id number] THINPREP PAP, IMAGED: NEGATIVE FOR SQUAMOUS INTRAEPITHELIAL LESION AND MALIGNANCY . ABUNDANT RED BLOOD CELLS ARE PRESENT. HANNA HUMPHREY(ASCP) (CASE ELECTRONICALLY SIGNED 04 14 2020) ADEQUACY: SATISFACTORY ENDOCERVICAL/TRANSFORMATION ZONE COMPONENT PRESENT. SOURCE: THINPREP PAP HPV IF ASCUS, CERVICAL, IMAGED CLINICAL INFORMATION: HPV IF DIAGNOSIS OF ASCUS. HORMONES, PAP HX NEG. Z12.4, Z01.419 Johan Askew DO LAB CYTOLOGY ORDERABLES Final Result HISTORICAL TESTING LAB RESULTING AGENCY from Last 3 Months or Most Recently Relevant to Health Maintenance [place] [address] [place] [address] HEALTH PLAN Care Teams [employer] Founder Relationship Specialty Start Date End Date Rebecca Encinas MD [address] [place] [phone] PCP - General Internal Medicine 09/10/24
[2024-12-01 08:38] VITALS: BP 124/92; PULSE 93; O2SAT 95; BMI 39.4
[2024-12-01 08:56] LABS: Glucose, Whole Blood 144 mg/dL (60-115)
== END 2024-12-01 09:33 | disposition home or self-care (01) ==
LOC: HO.ENCR 08:30
PROVIDERS: PCP Internal Medicine; Visit Provider Internal Medicine Endocrinology, Diabetes & Metabolism
DX: E10.21 Type 1 diabetes mellitus with diabetic nephropathy (principal)
CPT/HCPCS: 99204; G2211

== ENCOUNTER → 2024-12-01 08:29 | Outpatient (BNVA) | payer OTHER, SELFPAY | PROVIDERS: PCP Internal Medicine; Visit Provider Internal Medicine Endocrinology, Diabetes & Metabolism | DX: E10.21 Type 1 diabetes mellitus with diabetic nephropathy (principal) | CPT/HCPCS: 82947; 99202 ==

== ENCOUNTER 2024-12-01 11:26 | Emergency (ER) | payer OTHER, SELFPAY ==
--- NOTE | ~2024-12-01 | XR_ITS ---
EXAMINATION: XR CHEST CLINICAL INFORMATION: Chest pain COMPARISON: September 22, 2024 TECHNIQUE: Frontal view of the chest was obtained. FINDINGS: Pulmonary vascularity appears more distinct than on the prior examination. No airspace opacities. Heart and mediastinal contours are within normal limits. XR/XR chest 1V IMPRESSION: No acute disease Electronically signed by: Rj Golden MD 12/01/2024 12:51 PM EDT
[2024-12-01 11:40] VITALS: BP 169/96; BP 181/103; PULSE 95; PULSE 96; RESP 16; TEMP 36.8; O2SAT 96; O2SAT 98; BMI 39.0
--- NOTE | 2024-12-01 12:10 | ECG_ITS ---
Test Reason : SOB Blood Pressure : */* mmHG Vent. Rate : 93 BPM Atrial Rate : 93 BPM P-R Int : 158 ms QRS Dur : 76 ms QT Int : 350 ms P-R-T Axes : 19 32 23 degrees QTcB Int : 435 ms Normal sinus rhythm Normal ECG When compared with ECG of 27-Sep-2024 12:17, Nonspecific T wave abnormality no longer evident in Anterolateral leads Referred By: Rose Cardenas Electronically Signed By: WALE IVAN MD
--- NOTE | 2024-12-01 12:13 | ED.SOB ---
HPI - SOB/Dyspnea General Chief Complaint: Dyspnea Stated Complaint: ?HEART MURMUR,HYPERTENSIVE,TACHY,LE SWELLING Time Seen by Provider: 12/01/24 11:35 History of Present Illness HPI Narrative: Patient is a 29-year-old female with a previous history of cocaine abuse. Had a previous history of cardiomyopathy. Takes Lasix on a as needed basis had upper respiratory symptoms previously was given a Z-Nestor but is not improving still having some coughing some shortness of breath came to the ED patient denies any leg edema. Denies any chest pain. Denies any diaphoresis. no hx high cholesterol, smoking, mi. Positive history of diabetes positive history of hypertension. Patient from home. Travel to [facility] but no long distance travel. No bloody stool. Related Data Home Medications ?Medication ?Instructions ?Recorded ?Confirmed albuterol sulfate 90 mcg/actuation 2 puff inhalation QID PRN wheezing 09/22/24 12/01/24 aerosol inhaler (Ventolin HFA) loratadine 10 mg tablet 10 mg PO DAILY 09/22/24 12/01/24 omeprazole 20 mg capsule,delayed 20 mg PO DAILY@0630 09/22/24 12/01/24 release sumatriptan succinate 25 mg tablet 25 mg PO DAILY PRN Migraine 09/22/24 12/01/24 Headache insulin glargine 100 unit/mL (3 40 unit subcut BEDTIME 10/15/24 12/01/24 mL) subcutaneous pen (Lantus Solostar U-100 Insulin) blood-glucose sensor (Dexcom G7 12/01/24 12/01/24 Sensor device) esomeprazole magnesium 40 mg 40 mg PO QAM 12/01/24 12/01/24 capsule,delayed release Previous Rx's ?Medication ?Instructions ?Recorded ondansetron 4 mg disintegrating 4 mg PO Q8H PRN nausea and 07/02/24 tablet vomiting #10 tabs amlodipine 10 mg tablet 10 mg PO DAILY@1999 #30 tabs 09/25/24 losartan 100 mg tablet 200 mg (2 x 100 mg) PO DAILY #180 10/12/24 tabs furosemide 20 mg tablet (Lasix) 20 mg PO DAILY PRN edema #30 tabs 11/19/24 doxycycline hyclate 100 mg capsule 100 mg PO BID cough 7 days #14 caps 07/02/25 glucagon 3 mg/actuation nasal 3 mg intranasal ONCE #2 ea 12/01/24 spray (Baqsimi) insulin aspart U-100 100 unit/mL See Rx Instructions subcut TID #15 12/01/24 (3 mL) subcutaneous pen (Novolog mL FlexPen U-100 Insulin aspart) Allergies Allergy/AdvReac Type Severity Reaction Status Date / Time Sulfa (Sulfonamide Allergy Unknown HIVES Verified 12/01/24 11:45 Antibiotics) (SULFA (SULFONAMIDE ANTIBIOTICS)) clindamycin Allergy Hives Verified 12/01/24 08:40 fish derived (fish) Allergy Anaphylaxis Verified 12/01/24 08:40 Review of Systems Review of Systems: Positive shortness of breath Yes all other systems are reviewed and are negative [facility] Past Medical History Attestation statement: The following information was validated with the patient. Medical History Type 1 diabetes Hypertension 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 Cocaine use Surgical History No pertinent past surgical history Family History Family History Father Hypertension Mother Hypertension Diabetes Social History Social History Household Members: Family Housing: House Do you presently have visiting nurse or other home services: No Alcohol intake: current Alcohol intake frequency: holidays/special occasions only Patient Tobacco Use Status: Never used Tobacco Substance Use Type: Marijuana Advance Directives: No Advance Directives Information Provided: Yes service: No Physical Exam Vital Signs: Vital Signs: Last Vital Signs Temp 97.9 F 12/01/24 12:50 Pulse 91 12/01/24 12:50 Resp 22 H 12/01/24 12:50 BP 170/102 H 12/01/24 12:50 Pulse Ox 96 12/01/24 12:50 O2 Del Method Room Air 12/01/24 12:50 BMI result Body Mass Index 39.0 Appearance: Alert. Oriented X3. No acute distress. Eyes: Pupils equal, round and reactive to light. ENT: Pharynx normal. Neck: Normal inspection. Neck supple. No lymph nodes noted. No crepitus CVS: Normal heart rate and rhythm. Pulses normal. Normal S1 and S2 Respiratory: No respiratory distress. Breath sounds normal. No Wheezing. No rales Abdomen: Soft and nontender. No rigidity. No distention. good BS x4 Skin: Skin warm and dry. Normal skin color. Normal skin turgor. Extremities: No lower extremity edema. Neurovascular intact to all extremities. No Lacerations. No Rash Neuro: Oriented X 3. No motor deficit. No sensory deficit. Moving all extermities. No slurred speech Medications Administered Discontinued Medications Generic Name Dose Route Start Last Admin Trade Name Zheng PRN Reason Stop Dose Admin Insulin Human Regular 5 unit 12/01/24 14:35 12/01/24 15:00 Insulin Regular, Human 100 Unit/Ml 10 Ml Vial IVPUSH 12/01/24 14:36 Not Given ONCE ONE Medical Decision Making Medical Decision Making MDM Narrative: Previous echo report as below. The left ventricular systolic function is normal. The visually estimated ejection fraction is between 55-60%. - Evidence suggests grade II (moderate) diastolic dysfunction. - No obvious valvular pathology seen on this study. Findings Left Ventricle Normal left ventricular cavity size. There is moderately increased left ventricular wall thickness. The left ventricular systolic function is normal. The visually estimated ejection fraction is between 55-60%. There is no evidence of regional wall motion abnormalities. Evidence suggests grade II (moderate) diastolic dysfunction. No chest pain. Positive coughing positive generalized malaise. patient from home. Patient's chest x-ray by my interpretation was grossly normal there is no acute infiltrate noted. I reviewed radiology's reading. History of diabetes hypertension patient's glucose initially was 390. Patient claims she took an extra dose of insulin prior to arrival . We monitor her and rechecked her sugar at turns out to be about 110. No need for additional insulin. Positive coughing upper respiratory symptoms patient received a course of azithromycin with only moderate relief. No pitting edema. Patient's BNP is 130. No signs of overt failure. Troponin is normal. Will discharge patient home on additional antibiotics. Close follow-up advised. In stable condition. Differential Diagnosis Differential Diagnoses: The differential diagnosis associated with the presentation includes Admission/Observation Consideration of admission/observation: Escalation of care including admission/observation considered Lab Data [facility] Lab Attestation statement: I reviewed the patient's lab results. 12/01/24 12:32 12/01/24 12:32 Labs: Lab Results 07/02/25 07/02/25 07/02/25 Range/Units 12:32 12:49 14:52 WBC 9.2 (4.8-10.8) X10*3/uL RBC 4.12 L (4.20-5.50) X10*6/uL Hgb 11.9 L (12.0-16.0) g/dl Hct 35.3 L (37.0-47.0) % MCV 85.7 (80.0-98.0) fL MCH 28.9 (27.0-33.0) pg MCHC 33.7 (31.0-35.0) g/dl RDW 11.6 (11.0-16.0) % Plt Count 363 (160-400) X10*3/uL MPV 8.7 L (9.4-12.3) fL Immature Gran % (Auto) 0.3 (0.0-0.4) % Neut % (Auto) 65.2 (45-73) % Lymph % (Auto) 27.1 (20-40) % Kinney % (Auto) 3.9 (2-11) % Eos % (Auto) 3.0 (0-4) % Baso % (Auto) 0.5 (0-2) % Lymph # (Auto) 2.5 (1.2-4.9) X10*3/uL Kinney # (Auto) 0.4 (0.1-1.2) X10*3/uL Eos # (Auto) 0.3 (0.0-0.4) X10*3/uL Baso # (Auto) 0.1 (0.0-0.2) X10*3/uL Abs Immat Gran (auto) 0.03 (0.00-0.03) X10*3/uL Absolute Neuts (auto) 6.0 (2.0-8.3) x10*3/uL Absolute Nucleated RBC 0.000 (0.0-0.012) X10*3/uL Nucleated RBC % (auto) 0.0 (0.0-0.2) /100WBC Sodium 132 L (135-145) mmol/L Potassium 5.3 H D (3.3-5.1) mmol/L Chloride 102 (96-108) mmol/L Carbon Dioxide 25 (22-29) mmol/L Anion Gap 10 L (12-20) BUN 31 H (9-16) mg/dL Creatinine 0.85 (0.5-1.4) mg/dL Estim Creat Clear Calc 107.9 Estimated GFR > 60 POC Glucose 119 H (60-115) mg/dL Random Glucose 395 H* (60-115) mg/dL Calcium 8.6 (8.4-10.2) mg/dL Total Bilirubin 0.2 (0.0-1.0) mg/dL Direct Bilirubin < 0.2 (0.0-0.5) mg/dL AST 18 (5-31) U/L ALT 18 (0-31) U/L Alkaline Phosphatase 90 (39-117) U/L Troponin I High Sens < 2.7 (<3.5-17.0) ng/L B-Natriuretic Peptide 130 H (<100) pg/mL Total Protein 6.6 (6.5-8.0) g/dL Albumin 3.5 (3.5-5.0) g/dL Beta HCG, Quant < 2 mIU/mL Urine Color Yellow Urine Appearance Clear Urine pH 7.0 (5.0-9.0) Ur Specific [place] 1.015 (1.005-1.025) Urine Protein 300 (3+) H (Neg-Trace) mg/dL Urine Glucose (UA) >=1000 H (Negative) mg/dL Urine Ketones Trace (Negative) mg/dL Urine Blood Small (1+) H (Negative) Urine Nitrite Negative (Negative) Ur Leukocyte Esterase Negative (Negative) Urine RBC 3-5 H (0-2) /HPF Urine WBC 0-5 (0-5) /HPF Ur Squamous Epith Cells 0-2 (0-2) /HPF Urine Bacteria None Seen (None Seen) Hyaline Casts 0-2 (0-2) /LPF Influenza Type A (PCR) NEGATIVE (Negative) Influenza Type B (PCR) NEGATIVE (Negative) RSV RNA Qual (PCR) NEGATIVE (Negative) SARS-CoV-2 RNA (RT-PCR) NEGATIVE (Negative) Independent Interpretation I performed an independent interpretation of an: EKG (Sinus heart rate is 90 SC QRS QTC within normal limits there is no acute ST segment elevation) and Plain X-Ray (My interpretation patient's chest x-ray is grossly negative) Radiology Impression Discussion of test interpretation with radiology: I have reviewed the radiologist's reading. External Record Review External record reviewed: Office record Social Determinants Patient?s care significantly limited by Social Determinants of Health including: Problems related to primary support group Discharge Plan Discharge Clinical Impression: Acute upper respiratory infection Patient Disposition: Home, Self-Care Instructions: Acute Bronchitis (ED) Prescriptions: New doxycycline hyclate 100 mg capsule 100 mg PO BID 7 Days Qty: 14 0RF No Action losartan 100 mg tablet 200 mg PO DAILY Qty: 180 1RF insulin aspart U-100 [Novolog FlexPen U-100 Insulin] 100 unit/mL (3 mL) insulin pen See Rx Instructions subcut TID Qty: 15 4RF Rx Instructions: Novolog carb 1:5 for meals for correction 1:20 subcutaneously 3 times a day; sumatriptan succinate 25 mg tablet 25 mg PO DAILY PRN (Reason: Migraine Headache) omeprazole 20 mg capsule,delayed release(DR/EC) 20 mg PO DAILY@0630 albuterol sulfate [Ventolin HFA] 90 mcg/actuation HFA aerosol inhaler 2 puff inhalation QID PRN (Reason: wheezing) loratadine 10 mg Tablet 10 mg PO DAILY amlodipine 10 mg Tablet 10 mg PO DAILY@2000 Qty: 30 0RF Protocol: Hold for SBP< HOLD for SBP < : 90 insulin glargine [Lantus Solostar U-100 Insulin] 100 unit/mL (3 mL) insulin pen 40 unit subcut BEDTIME ondansetron 4 mg tablet,disintegrating 4 mg PO Q8H PRN (Reason: nausea and vomiting) Qty: 10 0RF furosemide [Lasix] 20 mg tablet 20 mg PO DAILY PRN (Reason: edema) Qty: 30 5RF esomeprazole magnesium 40 mg capsule,delayed release(DR/EC) 40 mg PO QAM (DME) Dexcom G7 Sensor Device See Rx Instructions .Route Rx Instructions: As directed Baqsimi 3 mg/actuation spray,non-aerosol 3 mg intranasal ONCE Qty: 2 0RF Referrals: Rebecca Encinas MD [Primary Care Provider, Internal Medicine] - 3 days Print Language: Azerbaijani
[2024-12-01 12:36] LABS: MANUAL DIFF FLAG NO
[2024-12-01 12:40] LABS: Hematocrit 35.3 % (37.0-47.0); Hemoglobin 11.9 g/dl (12.0-16.0); Imm Gran Abs Auto 0.03 X10*3/uL (0.00-0.03); Imm Gran Pct Auto 0.3 % (0.0-0.4); Lymphocytes Absolute Auto 2.5 X10*3/uL (1.2-4.9); Mean Corpuscular HGB Conc 33.7 g/dl (31.0-35.0); Mean Corpuscular Hemoglobin 28.9 pg (27.0-33.0); Mean Corpuscular Volume 85.7 fL (80.0-98.0); NRBC Abs Auto 0.000 X10*3/uL (0.0-0.012); NRBC Pct Auto 0.0 /100WBC (0.0-0.2); Platelet Count 363 X10*3/uL (160-400); Red Blood Count 4.12 X10*6/uL (4.20-5.50); White Blood Count 9.2 X10*3/uL (4.8-10.8)
[2024-12-01 12:50] VITALS: BP 170/102; PULSE 91; RESP 22; TEMP 36.6; O2SAT 96
[2024-12-01 12:58] LABS: B Type Natriuretic Peptide 130 pg/mL (<100)
[2024-12-01 12:59] LABS: Appearance Urine Clear; Glucose Urine UA >=1000 mg/dL (Negative); PH 7.0 (5.0-9.0); Specific Gravity - Urine 1.015 (1.005-1.025); UMIC TRIGGER UACC YES
[2024-12-01 13:02] LABS: Alanine Aminotransferase 18 U/L (0-31); Albumin Level 3.5 g/dL (3.5-5.0); Alkaline Phosphatase 90 U/L (39-117); Anion Gap 10 (12-20); Aspartate Amino Transferase 18 U/L (5-31); Blood Urea Nitrogen 31 mg/dL (9-16); Calcium 8.6 mg/dL (8.4-10.2); Carbon Dioxide 25 mmol/L (22-29); Chloride 102 mmol/L (96-108); Creatinine Clr Calc Pharmacy 107.9; Estimated Glomerular Filt Rate > 60; Potassium 5.3 mmol/L (3.3-5.1); Sodium 132 mmol/L (135-145); Total Protein 6.6 g/dL (6.5-8.0); Troponin-I High Sensitivity < 2.7 ng/L (<3.5-17.0)
[2024-12-01 13:22] LABS: Resp Syncy Virus RNA Qual PCR NEGATIVE (Negative); SARS COV2 PCR INHOUSE NEGATIVE (Negative)
[2024-12-01 14:57] LABS: Glucose, Whole Blood 119 mg/dL (60-115)
--- NOTE | 2024-12-01 15:00 | PC.NURSE ---
POC 119. Insulin held
[2024-12-01 15:43] VITALS: BP 140/93; PULSE 91; RESP 16; TEMP 36.7; O2SAT 96
[2024-12-01 15:46] VITALS: BP 140/93; PULSE 91; RESP 16; TEMP 36.7; O2SAT 96
== END 2024-12-01 15:47 | disposition home or self-care (01) ==
PROVIDERS: Emergency Provider Emergency Medicine Emergency Medical Services; PCP Internal Medicine
DX: J06.9 Acute upper respiratory infection, unspecified (principal); R05.9 Cough, unspecified; R06.02 Shortness of breath; Z03.818 Encounter for observation for suspected exposure to other biological agents ruled out; E10.9 Type 1 diabetes mellitus without complications; I10 Essential (primary) hypertension; Z79.4 Long term (current) use of insulin; Z79.899 Other long term (current) drug therapy
CPT/HCPCS: 36415; 71045; 80048; 80076; 81001; 82947; 83880; 84484; 84702; 85025; 87637; 93005; 99283; 99285

== ENCOUNTER → 2024-12-01 12:10 | Outpatient (BNV) | payer OTHER, SELFPAY | PROVIDERS: Emergency Provider Emergency Medicine Emergency Medical Services; PCP Internal Medicine; Visit Provider Radiology Diagnostic Radiology | DX: R07.9 Chest pain, unspecified (principal) | CPT/HCPCS: 71045 ==

== ENCOUNTER 2025-01-03 08:03 | Outpatient (AMB) | payer OTHER, SELFPAY ==
--- OUTSIDE RECORDS SUMMARY | 2025-01-03 08:07 | XMS_ITS | Clinical Summary ---
Author Organization [facility] Address [address] [place] [address] Phone Care Team Providers Care Roasterman Name Role Phone Rebecca Encinas MD Primary Care Provider [phone] Allergies Active Allergy Reactions Criticality Noted Date [...] units Sc at bedtime 15 mL 11 07/02/19 25 Active glucagon (Gvoke HypoPen 2-Pack) 0.5 mg/0.1 mL auto-injector Inject 0.5 mg under the skin if needed (low blood sugar). 0.2 each 3 07/02/19 25 Active insulin aspart (NovoLOG FlexPen) 100 unit/mL (3 mL) injection pen 1 TO 5 UNITS FOR CARBS .1 TO 20 UNITS FOR BLOOD SUGAR ABOVE 120 SLIDING SCALE Dispense aspart , generic only 15 mL 11 08/06/19 25 Active acetaminophen (TYLENOL) 500 mg tablet TAKE 1 BY MOUTH EVERY 6 HOURS NEEDED FOR PAIN 10/14/19 25 Active furosemide (LASIX) 20 mg tablet Take 1 tablet (20 mg total) by mouth 1 (one) time each day. 09/26/19 25 Active losartan (COZAAR) 100 mg tablet Take 1 tablet (100 mg total) by mouth 1 (one) time each day. 10/13/19 25 Active albuterol HFA (PROAIR HFA ; PROVENTIL HFA ; VENTOLIN HFA) 90 mcg/actuation inhalerIndication s:Mild intermittent asthma without complication Inhale 2 puffs by mouth every 4 (four) hours if needed for wheezing. 6.7 g 1 10/21/19 25 Active amLODIPine (NORVASC) 10 mg tablet Take 1 tablet (10 mg total) by mouth 1 (one) time each day. 90 tablet 1 10/21/19 25 Active esomeprazole (NexIUM) [address] capsule Take 1 capsule (40 mg total) by mouth 1 (one) time each day before breakfast. Do not open capsule. 30 each 3 11/12/19 25 2025 Active SUMAtriptan (IMITREX) 100 mg tablet Take 1 tablet (100 mg total) by mouth 1 (one) time if needed for migraine. May repeat dose once in 2 hours if no relief. Do not exceed 2 doses in 24 hours. 9 tablet 1 11/17/19 25 2025 Active ondansetron ODT (ZOFRAN-ODT) 8 mg disintegrating tablet DISSOLVE 1 TABLET ON TOP OF TONGUE EVERY 8 HOURS NEEDED FOR NAUSEA OR VOMITING FOR UP TO 7 DAYS 20 tablet 12/30/19 25 Active ondansetron ODT (ZOFRAN-ODT) 8 mg disintegrating tablet Dissolve 1 tablet (8 mg total) on top of the tongue every 8 (eight) hours if needed for nausea or vomiting for up to 7 days. 20 tablet 11/12/19 25 2024 Discontinued Active Problems Problem Noted Date Diagnosed Date Cocaine use disorder in remission 10/20/2024 Mild intermittent asthma without complication Chronic diastolic heart failure (CMS/HCC V24, CM S/[facility] V28) 10/20/2024 Menorrhagia with irregular cycle 07/12/2024 [...] mellitus wit hout complication ([facility] V24, [facility] V28) 06/25/2024 Depression, major, recurrent , moderate ([facility] V24, [facility] V28) 05/11/2024 Obesity 05/11/2024 Tobacco use disorder [...] Description 11/16/2024 1:00 PM EDT Office Visit Adult [address] [phone] Rebecca Encinas MD Type 1 diabetes mellitus without complication ([facility] V24, [facility] V28) (Primary Dx); Primary hypertension; Migraine with aura, with intractable migraine, so stated, with status migrainosus 11/11/2024 1:00 PM EDT Office Visit Gastroenterology - [place] [address] [facility] [address] [facility] [address] [place] [phone] Charity Wall PA Gastroesophageal reflux disease, unspecified whether esophagitis present (Primary Dx); Nausea and vomiting, unspecified vomiting type; Acute superficial gastritis without hemorrhage; Hepatic adenoma 10/20/2024 9:00 AM EDT Office Visit Adult [address] [phone] Rebecca Encinas MD Hospital discharge follow-up (Primary Dx); Primary hypertension; Mild intermittent asthma without complication; Migraine with aura, with intractable migraine, so stated, with status migrainosus; Cocaine use disorder in remission; Chronic diastolic heart failure ([facility] V24, [facility] V28) 10/20/2024 7:43 AM EDT - 10/20/2024 11:59 PM EDT Hospital [facility] Xray [address] [place] [phone] Gastroesophageal reflux disease, unspecified whether esophagitis present; Nausea and vomiting, unspecified vomiting type Discharge Disposition: Home or Self Care 10/12/[address] [phone] Narda Sharma PA PRIOR AUTH 10/06/2024 Telephone Adult Medicine [address] [phone] Rebecca Encinas MD Medication Problem; Hospital Follow-up from Last 3 Months Immunizations Name Administration Dates Next Due DTaP (Infanrix) 6wks to less than 7yo ,09/03/1999,05/04/1998,1997,1997 [id number] (Pentacel) 2mo to less than 5yo 09/03/1999,05/04/1998,03/01/1998,1997 [...] ENDOSCOPY 2007 PROCEDURE: UPPER GI ENDOSCOPY/EXAM; COMMENT: [facility] Medical History Medical History Date Comments Type 1 diabetes mellitus (CM S/HCC V24, CMS/HCC V28) DX:Type 1 diabetes mellitus (HCC); COMMENT: [facility] Endocrinology. Dr. Griffin. Dx age 8 [...] Info) Description 02/11/2025 8:15 AM EDT Appointment [address] [phone] 03/03/2025 8:30 AM EDT Office Visit Adult Medicine [address] [phone] Rebecca Encinas MD [address] [place] [phone] 05/16/2025 8:50 AM EST Office Visit Gastroenterology - [place] [address] [facility] [address] [facility] [address] [place] [phone] Charity Wall PA [address] [facility] [address] [place] [address] Health Maintenance Due Date Last Done Comments Pneumococcal Vaccine: Pediatrics (0 to 5 Years) and At-Risk Patients (6 to 49 Years) (2 of 2 - PPSV23) 08/06/2007 [...] 2025 , 03/11/2013, 05/04/2012, Additional history exists Diabetes: Annual GFR (Glomerular Filtration Rate) 08/19/2025 [...] Completed 11/23/2020 Hepatitis C Screening Completed 11/23/2020 Depression Screening Completed 07/11/2024 Gonorrhea/Chlamydia Screening Discontinued 07/27/2024, 06/20/2021 HPV Vaccines [...] Procedure Name Priority Date/Time Associated Diagnosis Comments EXTERNAL XRAY REPORT 12/01/2024 XR UGI W AIR CONTRAST Routine 10/20/2024 8:17 AM EDT Gastroesophageal reflux disease, unspecified whether esophagitis present Nausea and vomiting, unspecified vomiting type BASIC METABOLIC PANEL Routine 08/19/2024 11:08 AM EDT Type 1 diabetes mellitus without complication ([facility]/HCC V24, [facility] V28) CHLAMYDIA TRACHOMATIS AND NEISSERIA GONORRHOEAE PCR Routine 07/27/2024 3:19 PM EST Screen for STD (sexually transmitted disease) HEMOGLOBIN A1C Routine 06/25/2024 2:07 PM EST Type 1 diabetes mellitus without complication ([facility] V24, CMS/[facility] V28) HEPATITIS C SCREENING Routine 11/23/2020 HIV SCREENING Routine 11/23/2020 PAP SMEAR Routine 04/12/2020 from Last 3 Months or Most Recently Relevant to Health Maintenance Results * External Xray Report (12/01/2024) Anatomical Region Laterality Modality Radiographic Jihan ging Provider [facility] IM[facility] XR PROCEDURES Final Result * XR UGI w Air Contrast (10/20/2024 [...] Signed Date: 10/20/2024 13:45 ET Workstation ID: [id number] Transcribed By: Self Edit Transcribed Date: 10/20/2024 09:16 ET Resident/PA/THREAD WEAVER: Kina South Narrative 10/20/2024 1:45 PM EDT FINDINGS: Double contrast UGI performed. COMPARISON:. None. 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 Bowel [...] Signed Date: 10/20/2024 13:45 ET Workstation ID: [id number] Transcribed By: Self Edit Transcribed Date: 10/20/2024 09:16 ET Resident/PA/THREAD WEAVER: Kina South Charity [facility] IMG FLUOROSCOPY PROCEDURES Fi nal Result * (ABNORMAL) Basic metabolic panel (08/19/2024 11:08 AM EDT) Sodium 136 133 - 145 mmol/L LAB CHEMISTRY METHOD 08/19/2024 5:15 PM [facility] Potassium 4.7 3.5 - 5.5 mmol/L LAB CHEMISTRY METHOD 08/19/2024 5:15 PM [facility] Chloride 104 96 - 110 mmol/L LAB CHEMISTRY METHOD 08/19/2024 5:15 PM [facility] CO2 26 21 - 32 mmol/L LAB CHEMISTRY METHOD 08/19/2024 5:15 PM [facility] Anion Gap 6 3 - 11 LAB CHEMISTRY METHOD 08/19/2024 5:15 PM EDT [facility] Glucose 147(H) 70 - 100 mg/dL LAB CHEMISTRY METHOD 08/19/2024 5:15 PM EDT [facility] BUN 22 5 - 25 mg/dL LAB CHEMISTRY METHOD 08/19/2024 5:15 PM EDT [facility] Creatinine 0.80 0.50 - 1.10 mg/dL LAB CHEMISTRY METHOD 08/19/2024 5:15 PM EDT [facility] eGFR 104 >=60 mL/min/1. 73m2 LAB CHEMISTRY METHOD 08/19/2024 5:15 PM EDT [facility] Comment:Calculation based on the Chronic Kidney Disease Epidemiology Collaboration (CKD-EPI) equation refit without adjustment for race. BUN/Creatinine Ratio 27.5 LAB CHEMISTRY METHOD 08/19/2024 5:15 PM EDT [facility] Calcium 9.4 8.5 - 10.5 mg/dL LAB CHEMISTRY METHOD 08/19/2024 5:15 PM EDT [facility] Blood Venous blood specimen / Unknown Venipuncture / Unknown 08/19/2024 11:08 AM EDT 08/19/2024 11:08 AM EDT us Rebecca Encinas MD LAB BLOOD ORDERABLES Final Resul t [facility] [address] [place] [address], * Chlamydia trachomatis and Neisseria gonorrhoeae molecular [...] GENERAL ORDERABLES Final Result Performing Organization Address City/[facility]/ZIP Co de Phone Number [facility] [address] [place] [address], [place] [phone] * (ABNORMAL) Hemoglobin A1c (06/25/2024 2:07 PM EST) [facility] Hemoglobin A1C 11.3(H) <6.5 % LAB [...] ORDERABLES Final Resul t Performing Organization Address [facility]/ZIP Co de Phone Number [facility] [address] [place] [address], [place] [phone] * HIV Screening (11/23/2020) Pathologist [facility] HIV Screening abstracted Historical Provider HEALTH MAINTENANCE Final Result * Hepatitis C Screening (11/23/2020) [facility] Hepatitis C Screening abstracted Historical Provider MD HEALTH MAINTENANCE Final Result * Pap smear (04/12/2020) 04/12/2020 Narrative HISTORICAL TESTING LAB RESULTING AGENCY - 04/14/2020 12:26 PM EST [id number] THINPREP PAP, IMAGED: NEGATIVE FOR SQUAMOUS INTRAEPITHELIAL [...] Most Recently Relevant to Health Maintenance Insurance [facility] [address] PLAN Care Teams Roasterman Relationship Specialty Start Date End Date Rebecca Encinas MD [address] [place] [id number] PCP - General Internal Medicine 09/10/24
--- NOTE | 2025-01-03 08:47 | A.OFFVIS_ITS ---
Intake Intake Visit Reasons: T1DM Fitting Room Supervisor Required: No Accompanied by: Sister Allergies Sulfa (Sulfonamide Antibiotics) (SULFA (SULFONAMIDE ANTIBIOTICS)) Allergy (Unknown, Verified 12/01/24 11:45) HIVES clindamycin Allergy (Verified 12/01/24 08:40) Hives fish derived (fish) Allergy (Verified 12/01/24 08:40) Anaphylaxis HPI Comprehensive Diabetes Asmnt Most Recent Diabetes Results: 2 Creatinine, (0.5-1.4) 0.85 mg/dL 12/01/24 BUN, (9-16) 31 mg/dL H 12/01/24 Sodium, (135-145) 132 mmol/L L 12/01/24 Potassium, (3.3-5.1) 5.3 mmol/L H Δ 12/01/24 Chloride, (96-108) 102 mmol/L 12/01/24 Carbon Dioxide, (22-29) 25 mmol/L 12/01/24 Calcium, (8.4-10.2) 8.6 mg/dL 12/01/24 AST, (5-31) 18 U/L 12/01/24 ALT, (0-31) 18 U/L 12/01/24 Total Protein, (6.5-8.0) 6.6 g/dL 12/01/24 Albumin, (3.5-5.0) 3.5 g/dL 12/01/24 [facility] Medical History Type 1 diabetes Hypertension 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 Cocaine use Surgical History No pertinent past surgical history Family History Father Hypertension Mother Hypertension Diabetes Social History Household Members: Family Housing: House Do you presently have visiting nurse or other home services: No Alcohol intake: current Alcohol intake frequency: holidays/special occasions only Patient Tobacco Use Status: Never used Tobacco Substance Use Type: Marijuana service: No Assessment & Plan Assessment & Plan (1) Type 1 diabetes: Code(s): E10.9 - Type 1 diabetes mellitus without complications Qualifiers: Diabetes mellitus complication detail: with nephropathy Diabetes mellitus complication status: with kidney complications Qualified Code(s): E 10.21 - Type 1 diabetes mellitus with diabetic nephropathy Plan: Pump Assessment: Type of DM:Type 1 Dx at age: 8y/o Previous DKA: yes, last episode winter 2024 Current Insulin Rx: MDI Patient takes insulin as prescribed: yes Patient?Dexcom G7 Downloaded meter today Patient? reports glycemic control as: poor Most recent Hgb A1C: 8.7% 12/21/24 Frequency of low B-4 times a week Frequency of high BG: daily Does patient check Ketones? No, reviewed at today's visit Has pt been on a pump in the past? Essie Reviewed insulin pump basics today with Patient. Explained pros and cons of insulin pumps. Showed pt various pumps, infusion sets, and cgms currently available. Reviewed need to wear pump / and need to change infusion set every 3 days. Also stressed importance of frequent BG checks, 4x daily minimum or use pump that is integrated with CGM.? TDD:80 units Patient has insulin to carb ratio of 1-5 Sensitivity factor 1-20 Patient reports correcting 200 mg/dL Patient demonstrated motivation for continued insulin pump education and understands the need to complete education prior to starting insulin pump for best outcome. Patient is interested in either the T slim or the Omnipod Patient reports she has currently been treated for respiratory infection over the past 6 months, has been on and off antibiotics. She was also having difficulty obtaining rapid acting insulin until recently. Portions of this note were created using voice recognition software, please excuse any words or phrases that may have been misinterpreted. Patient Instructions: DIABETES PROBLEMS HOMECARE INSTRUCTIONS? for High Blood Sugar and When to Test for Ketones Hyperglycemia is the technical term for high blood glucose (blood sugar). High blood sugar happens when the body has too little insulin or when the body can't use insulin properly. What causes hyperglycemia? A number of things can cause hyperglycemia: * If you have type 1, you may not have given yourself enough insulin. ? If you have type 2, your body may have enough insulin, but it is not as effective as it should be. * You ate more than planned or exercised less than planned. * You have stress from an illness, such as a cold or flu. * You have other stress, such as family conflicts or school or dating problems. How to lower your blood sugar level. ? Take medications as directed by physician. ? Drink extra water or noncaffeinated, nonsugared drinks to prevented hydration. ? Exercise if you are not sick However, if your blood sugar is above 250 mg/dl, check your urine for ketones. I f you have ketones, do not exercise Exercising when ketones are present may make your blood sugar level go even higher. You'll need to work with your doctor to find the safest way for you to lower your blood sugar level. Regularly check blood sugar or urine for sugar and acetone during illness. Diabetic ketoacidosis (DKA) Is serious condition that can lead to diabetic coma (passing out for a long time) or even . When your cells don't get the glucose they need for energy, your body begins to burn fat for energy, which produces ketones. Ketones are chemicals that the body creates when it breaks down fat to use for energy. The body does this when it doesn?t have enough insulin to use glucose, the body?s normal source of energy. When ketones build up in the blood, they make it more acidic. They are a warning sign that your diabetes is out of control or that you are getting sick. Symptoms of Diabetic Ketoacidosis (DKA) ? DKA usually develops slowly. But when vomiting occurs, this life- threatening condition can develop in a few hours. Early symptoms include the following: ? Thirst or a very dry mouth ? Frequent urination ? High blood glucose (blood sugar) levels ? High levels of ketones in the urine ? Then, other symptoms appear: ? Constantly feeling tired ? Dry or flushed skin ? Nausea, vomiting, or abdominal pain ? (Vomiting can be caused by many illnesses, not just ketoacidosis. If vomiting continues for more than 2 hours, contact your health care provider.) ? Difficulty breathing ? Fruity odor on breath ? A hard time paying attention, or confusion When should you test for ketones? It is advisable to check for ketones under the following conditions when: Your blood glucose is higher than 250mg/dl. Feeling nauseated, throwing up, or have pains in your abdominal region. Have a cold or flu. Have general body fatigue. Feel thirsty or have a very dry mouth. Have flushed skin. Have a fruity breath or a hard time breathing. You feel perplexed or in fog. How to Test Urine for Ketones You can detect ketones with a simple urine test using a test strip, similar to a blood testing strip. Ask your health care provider when and how you should test for ketones. Many experts advise to check your urine for ketones when your blood glucose is more than 250 mg/dl. When you are ill (when you have a cold or the flu, for example), check for ketones every 4 to 6 hours. And check every 4 to 6 hours when your blood sugar is more than 250 mg/dl. Also, check for ketones when you have any symptoms of DKA. How to lower your blood sugar level. ? Take medications as directed by physician. ? Drink extra water or noncaffeinated, nonsugared drinks to prevented hydration. ? Exercise if you are not sick However, if your blood sugar is above 250 mg/dl, check your urine for ketones. I f you have ketones, do not exercise Exercising when ketones are present may make your blood sugar level go even higher. You'll need to work with your doctor to find the safest way for you to lower your blood sugar level. Regularly check blood sugar or urine for sugar and acetone during illness Coding Level of Care Code Est Pt Level 1 (41736) Diagnoses Type 1 diabetes mellitus with nephropathy E10.21 Diabetes mellitus complication detail: with nephropathy Diabetes mellitus complication status: with kidney complications
== END 2025-01-03 08:54 | disposition home or self-care (01) ==
LOC: HO.ENCR 08:03
PROVIDERS: PCP Internal Medicine; Visit Provider Registered Nurse Diabetes Educator
DX: E10.21 Type 1 diabetes mellitus with diabetic nephropathy (principal)

== ENCOUNTER → 2025-01-03 08:03 | Outpatient (BNVA) | payer OTHER, SELFPAY | PROVIDERS: PCP Internal Medicine; Visit Provider Registered Nurse Diabetes Educator | DX: E10.21 Type 1 diabetes mellitus with diabetic nephropathy (principal) | CPT/HCPCS: 99211 ==

== ENCOUNTER 2025-01-29 16:31 | Emergency (ER) | payer OTHER, SELFPAY ==
--- NOTE | ~2025-01-29 | XR_ITS ---
CLINICAL HISTORY: pain 2 view chest x-ray Comparison: CR/SR - XR CHEST 1 VIEW - 12/01/24 12:38 EDT Findings: The lungs are clear. Normal size heart. No acute fracture. IMPRESSION: 1. No acute findings. This document has been electronically signed by: Larry Chew MD on 01/29/2025 17:58:23
--- NOTE | ~2025-01-29 | US_ITS ---
CLINICAL HISTORY: pain Venous duplex ultrasound left lower extremity Comparison: US/SR - US LOWER EXTREMITY VEINS BILATERAL - 09/22/2024 08:25 AM EDT Findings: The visualized deep veins are fully compressible with normal Doppler color flow and spectral tracings. Limited evaluation of calf veins due to depth and calf edema. No popliteal cyst. IMPRESSION: 1. Negative for left lower extremity deep vein thrombosis. This document has been electronically signed by: Larry Chew MD on 01/29/2025 18:10:00
[2025-01-29 16:43] VITALS: BP 181/94; PULSE 100; RESP 18; TEMP 36.4; O2SAT 100; BMI 38.4
--- NOTE | 2025-01-29 16:45 | ECG_ITS ---
Test Reason : SOB Blood Pressure : */* mmHG Vent. Rate : 83 BPM Atrial Rate : 83 BPM P-R Int : 160 ms QRS Dur : 80 ms QT Int : 356 ms P-R-T Axes : 33 60 38 degrees QTcB Int : 418 ms Normal sinus rhythm Normal ECG When compared with ECG of 01-Dec-2024 12:16, No significant change was found Referred By: Dusty Ren Electronically Signed By: YESSI WALLS
--- NOTE | 2025-01-29 16:46 | ED_ITS ---
HPI - General Adult General Chief complaint: General Medical Stated complaint: left leg pain,sob,vomiting Time Seen by Provider: 01/29/25 16:56 Source: patient Mode of arrival: ambulatory Limitations: no limitations History of Present Illness ED Provider: DR. 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 Patient was referred from urgent care for evaluation of shortness of breath and left lower extremity swelling with pain, patient presented with bruising on her left upper thigh patient declined any trauma or injury. Patient also been having coughing and shortness of breath. No recent travel, no recent prolonged immobilization, no anticoagulation. No fever, no chills. Patient said that she has been compliant with her medication at home. No gaining weight, no lower extremity swelling. Related Data Home Medications ?Medication ?Instructions ?Recorded ?Confirmed albuterol sulfate 90 mcg/actuation 2 puff inhalation Q ID PRN wheezing 09/22/24 12/01/24 aerosol inhaler (Ventolin HFA) loratadine 10 mg tablet 10 mg PO DAILY 09/22/24 0707/27 omeprazole 20 mg capsule,delayed 20 mg PO DAILY@0630 0 09/22/24 12/01/24 release sumatriptan succinate 25 mg tablet 25 mg PO DAILY PRN Migraine 09/22/24 12/01/24 Headache insulin glargine 100 unit/mL (3 40 unit subcut BEDTIME 10/15/24 12/01/24 mL) subcutaneous pen (Lantus Solostar U-100 Insulin) blood-glucose sensor ([employer] G7 12/01/24 12/01/24 Sensor device) esomeprazole magnesium 40 mg 40 mg PO QAM 12/01/2407/27 capsule,delayed release Previous Rx's ?Medication ?Instructions ?Recorded ondansetron 4 mg disintegrating 4 mg PO Q8H PRN nausea and 07/02/24 tablet vomiting #10 tabs amlodipine 10 mg tablet 10 mg PO DAILY@2000 #30 tabs 09/25/24 losartan 100 mg tablet 200 mg (2 x 100 mg) PO DAILY #180 10/12/24 tabs furosemide 20 mg tablet (Lasix) 20 mg PO DAILY PRN ira ma #30 tabs 11/19/24 doxycycline hyclate 100 mg capsule 100 mg PO BID cough 7 days #14 caps 12/01/24 glucagon 3 mg/actuation nasal 3 mg intranasal ONCE #2 ea 12/01/24 spray (Baqsimi) acetone (urine) test (Ketone Urine #100 ea 01/03/25 Test strips) pen needle, diabetic 31 gauge x #100 ea 01/03/25 5/16 (Comfort EZ Pen Nathalie) insulin lispro 100 unit/mL 1 sliding scale dose subcut TID 01/04/25 subcutaneous pen (Humalog KwikPen #30 mL (U-100) Insulin) Allergies Allergy/AdvReac Type Severity Reaction Status Date / Time Sulfa (Sulfonamide Allergy Unknown HIVES Verified 01/29/25 16:52 Antibiotics) (SULFA (SULFONAMIDE ANTIBIOTICS)) clindamycin Allergy Hives Verified 01/29/25 16:52 fish derived (fish) Allergy Anaphylaxis Verified 01/29/25 16:52 Review of Systems 2 Review of Systems: All other systems are reviewed and are negative Constitutional: Reports as per HPI and Reports no additional constitutional complaints Eyes: Reports as per HPI and Reports no additional eye complaints Reports system reviewed and no additional complaints, except as documented Cardiovascular: Reports as per HPI and Reports no additional cardiovascular complaints Respiratory: Reports as per HPI and Reports no additional respiratory complaints Gastrointestinal: Reports as per HPI and Reports no additional gastrointestinal complaints Genitourinary: Reports no additional female genitourinary complaints Musculoskeletal: Reports no additional musculoskeletal complaints Skin/Breast: Reports system reviewed and no additional complaints, except as docu Psychiatric: Reports no additional psychiatric complaints Endocrine: Reports no additional endocrine complaints Hematologic/Lymphatic: Reports no additional hematologic/lymphatic complaints Allergic/Immunologic: Reports no additional allergic/immunologic complaints Reports system reviewed and no additional complaints, except as documented and Reports Abnormal speech present [facility] Past Medical History Medical History Type 1 diabetes Hypertension 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 Cocaine use Surgical History No pertinent past surgical history Family History Family History Father Hypertension Mother Hypertension Diabetes Social History Social History Household Members: Family Housing: House Do you presently have visiting nurse or other home services: No Alcohol intake: current Alcohol intake frequency: holidays/special occasions only Patient Tobacco Use Status: Never used Tobacco Smoked in Last 30 Days: No Use of substances other than those prescribed or required for medical reasons: No Substance Use Type: Marijuana Advance Directives: No Advance Directives Information Provided: No Patient : No service: No Physical Exam ED Vital Signs: Vital Signs - 24 hr 01/29/25 16:43 Temperature 97.6 F Pulse Rate 100 Respiratory Rate 18 Blood Pressure 181/94 H Pulse Oximetry 100 Oxygen Delivery Method Room Air BMI result Body Mass Index 38.4 Vital signs have been reviewed and appear to be correct. Blood pressure elevated. Heart rate normal. Respiratory rate normal. Temperature normal. Oxygen saturation normal. Appearance: Alert. Oriented X3. No acute distress. Head: Normal external exam. Normocephalic. Atraumatic. No Canela signs noted. No raccoon eyes noted Eyes: PERRLA. EOMI. Conjunctiva and sclera normal. Eyelids normal. ENT: TM's Normal. Pharynx normal. Uvula midline. Moist mucous membranes. No trismus noted. No drooling noted. No muffled voice noted. Neck: Normal inspection. Neck supple. FROM. No adenopathy. Thyroid Normal. No meningeal signs. No neck mass noted. CVS: Normal heart rate and rhythm. Heart sound normal. No murmurs noted. Pulses normal throughout. Respiratory: No respiratory distress. Painless inspiration. Breath sounds normal. No wheezes/rales/rhonchi noted. Chest nontender. No accessory muscle usage noted or decreased air movement noted. Abdomen: Soft and nontender. Bowel sounds normal in all 4 quadrants. No distention noted. No organomegaly noted. No visible injury noted. Back: No CVA tenderness. Full range of motion noted. Skin: Skin warm and dry. Normal skin color. Normal skin turgor. No rashes/lesions/lacerations noted. Extremities: Left lower extremity exam; left upper thigh ecchymosis, mild tenderness, no swelling, neurovascularly intact +left femoral pulse +left popliteal pulse, +left PT/DP pulse. Neuro: Oriented X 3. Cranial nerve exam: II-XII are grossly intact No motor deficit. No sensory deficit. Reflexes normal. Course Course Course Narrative: RME, this is a rapid medical exam performed by Irving Ren please refer to primary provider for complete H&P- 29-year-old female with a history of DVT, not currently anticoagulated, CHF, diabetes, hypertension presents for evaluation of atraumatic left leg pain. Symptoms started a few days ago. Plan for labs, ultrasound. She also complains of leg swelling despite taking her Lasix. Reevaluation(s) Reevaluation #1: 29-year-old female with complex past medical history due to IV drug use in the past, patient has been sober for the last 5 months, presented with left leg pain and dyspnea with a concern of having blood clots and pulmonary embolism, O2 sat is 100%, RR is 18, normal heart rate, negative D-dimer, negative ultrasound for DVT, no recent travel, no lower extremity swelling. No trauma to the left lower extremity. Chest x-ray shows no pneumonia or any other intrathoracic pathology. Time: 19:25 Medical Decision Making Differential Diagnosis Differential Diagnoses: The differential diagnosis associated with the presentation includes (Pulmonary embolism, DVT, pneumonia, pneumothorax, pleural effusion, CHF, ACS, .) Admission/Observation Consideration of admission/observation: Escalation of care including admission/observation considered Lab Data MDM Lab Attestation statement: I reviewed the patient's lab results. 01/29/25 17:46 01/29/25 17:47 Labs: Lab Results 01/29/25 01/29/25 01/29/25 Range/Units 17:46 17:47 18:21 WBC 10.7 (4.8-10.8) X10*3/uL RBC 4.02 L (4.20-5.50) X10*6/uL Hgb 12.0 (12.0-16.0) g/dl Hct 35.3 L (37.0-47.0) % MCV 87.8 (80.0-98.0) fL MCH 29.9 (27.0-33.0) pg MCHC 34.0 (31.0-35.0) g/dl RDW 11.7 (11.0-16.0) % Plt Count TNP MPV 9.4 (9.4-12.3) fL Immature Gran % (Auto) 0.2 (0.0-0.4) % Neut % (Auto) 63.6 (45-73) % Lymph % (Auto) 28.1 (20-40) % [place] % (Auto) 5.5 (2-11) % Eos % (Auto) 2.0 (0-4) % Baso % (Auto) 0.6 (0-2) % Lymph # (Auto) 3.0 (1.2-4.9) X10*3/uL [place] # (Auto) 0.6 (0.1-1.2) X10*3/uL Eos # (Auto) 0.2 (0.0-0.4) X10*3/uL Baso # (Auto) 0.1 (0.0-0.2) X10*3/uL Abs Immat Gran (auto) 0.02 (0.00-0.03) X10*3/uL Absolute Neuts (auto) 6.8 (2.0-8.3) x10*3/uL Absolute Nucleated RBC 0.000 (0.0-0.012) X10*3/uL Nucleated RBC % (auto) 0.0 (0.0-0.2) /100WBC Smear Tech's Comments VERIFIED D-Dimer High Sensitivty < 150 NG/ML Sodium 138 (135-145) mmol/L Potassium 4.8 (3.3-5.1) mmol/L Chloride 108 (96-108) mmol/L Carbon Dioxide 20 L (22-29) mmol/L Anion Gap 15 (12-20) BUN 28 H (9-16) mg/dL Creatinine 0.91 (0.5-1.4) mg/dL Estim Creat Clear Calc 99.9 Estimated GFR > 60 Random Glucose 226 H (60-115) mg/dL Calcium 8.8 (8.4-10.2) mg/dL Total Bilirubin 0.3 (0.0-1.0) mg/dL AST 15 (5-31) U/L ALT 11 (0-31) U/L Alkaline Phosphatase 90 (39-117) U/L Troponin I High Sens < 2.7 (<3.5-17.0) ng/L B-Natriuretic Peptide 138 H (<100) pg/mL Total Protein 6.5 (6.5-8.0) g/dL Albumin 3.4 L (3.5-5.0) g/dL Lipase 9 (8-78) U/L Beta HCG, Quant < 2 mIU/mL Urine Color Yellow Urine Appearance Clear Urine pH 5.5 (5.0-9.0) Ur Specific [place] 1.015 (1.005-1.025) Urine Protein 300 (3+) H (Neg-Trace) mg/dL Urine Glucose (UA) 100 H (Negative) mg/dL Urine Ketones Trace (Negative) mg/dL Urine Blood Small (1+) H (Negative) Urine Nitrite Negative (Negative) Ur Leukocyte Esterase Negative (Negative) Urine RBC 3-5 H (0-2) /HPF Urine WBC 0-5 (0-5) /HPF Ur Squamous Epith Cells 3-5 (0-2) /HPF Urine Bacteria 1+ (None Seen) Hyaline Casts 0-2 (0-2) /LPF Independent Interpretation I performed an independent interpretation of an: Plain X-Ray (Chest: No acute finding) and Ultrasound (Left lower extremity: Negative for DVT) Radiology Impression Discussion of test interpretation with radiology: I have reviewed the radiologist's reading. Discharge Plan Discharge Clinical Impression: Acute pain of left lower extremity, Dyspnea Patient Disposition: Home, Self-Care Instructions: Leg Pain (ED) Prescriptions: No Action losartan 100 mg tablet 200 mg PO DAILY Qty: 180 1RF (DME) Ketone Urine Test Strip See Rx Instructions .Route Qty: 100 3RF Rx Instructions: As directed (DME) pen needle, diabetic [Comfort EZ Pen Nathalie] 31 gauge x 5/16 needle See Rx Instructions .Route Qty: 100 5RF Rx Instructions: As directed insulin lispro [Humalog KwikPen Insulin] 100 unit/mL insulin pen 1 sliding scale dose subcut TID Qty: 30 5RF Rx Instructions: Inject 3-5 units before meals based on carbohydrate counting 1 unit/ 5 grams of carbs sumatriptan succinate 25 mg tablet 25 mg PO DAILY PRN (Reason: Migraine Headache) omeprazole 20 mg capsule,delayed release(DR/EC) 20 mg PO DAILY@0630 albuterol sulfate [Ventolin HFA] 90 mcg/actuation HFA aerosol inhaler 2 puff inhalation QID PRN (Reason: wheezing) loratadine 10 mg Tablet 10 mg PO DAILY amlodipine 10 mg Tablet 10 mg PO DAILY@2000 Qty: 30 0RF Protocol: Hold for SBP< HOLD for SBP < : 90 insulin glargine [Lantus Solostar U-100 Insulin] 100 unit/mL (3 mL) insulin pen 40 unit subcut BEDTIME ondansetron 4 mg tablet,disintegrating 4 mg PO Q8H PRN (Reason: nausea and vomiting) Qty: 10 0RF doxycycline hyclate 100 mg capsule 100 mg PO BID 7 Days Qty: 14 0RF furosemide [Lasix] 20 mg tablet 20 mg PO DAILY PRN (Reason: edema) Qty: 30 5RF esomeprazole magnesium 40 mg capsule,delayed release(DR/EC) 40 mg PO QAM (DME) Dexcom G7 Sensor Device See Rx Instructions .Route Rx Instructions: As directed Baqsimi 3 mg/actuation spray,non-aerosol 3 mg intranasal ONCE Qty: 2 0RF Referrals: Rebecca Encinas MD [Primary Care Provider, Internal Medicine] Print Language: Azeri
--- OUTSIDE RECORDS SUMMARY | 2025-01-29 17:10 | XMS_ITS | Encounter Summary ---
Author Organization [facility] Address [address] [place] [address] Care Team Providers Care Vice President Consulting Services Name Role Phone Jinny Sanchez MD Primary Care Provider Un available [facility], Pcp Primary Care Provider Rebecca Jimenez MD Primary Care Provider [phone] Encounter Details Date Type Department Care Team Description 04/28/2019 Orders Only Medical Records [address] [place] [id number] Abstract, Provider Social History Tobacco Use Types Packs/Day Years Used Date Smoking Tobacco: Former Cigarettes 0.3 Smokeless Tobacco: Never Comments:patient raza Alcohol Use Standard Drinks/Week Comments Yes 0 (1 standard drink = 0.6 oz pure alcohol) drinks sporadically socially - binge drinking stopped a month ago Alcohol Habits Answer Date Recorded How often do you have a drink containing alcohol ? Never 04/12/2020 How many drinks containing a lcohol do you have on a typical day when you are drinking? Not asked How often do you have six or more drinks on one occasion? Not asked Sex Assigned at Date Recorded Not on file Job Start Date Occupation Industry Not on file Not on file Not on file documented as of this encounter Plan of Treatment Not on file documented as of this encounter Procedures Procedure Name Priority Date/Time Associated Diagnosis Comments OUTSIDE ULTRASOUND Routine 04/28/2019 documented in this encounter Results * OUTSIDE ULTRASOUND (04/28/2019) Sobeida Santana PA-C RADIOLOGY documented in this encounter Visit Diagnoses Not on filedocumented in this encounter Care Teams Vice President Consulting Services Relationship Specialty Start Date End Date Jinny Sanchez MD PCP - General Internal Medicine 12/01/13 [facility] Pcp PCP - General Internal Medicine 03/11/22 08/04/22 Rebecca Encinas MD [address] [place] [id number] PCP - General Internal Medicine 08/05/22 documented as of this encounter
--- OUTSIDE RECORDS SUMMARY | 2025-01-29 17:10 | XMS_ITS | Clinical Summary ---
Author Organization [facility] Address [address] [place] [address] Care Team Providers Care Journeyman Welder Name Role Phone Rebecca Encinas MD Primary Care Provider [phone] Allergies Active Allergy Reactions Severity Noted Date Comments Clindamycin Rash/Dermatitis 11/25/2019 Seasonal Allergies 11/03/2014 Sulfa Drugs Rash/Dermatitis 06/26/2015 Medications Medication Sig Dispensed Refills Start Date End Date Status Cholecalciferol (VITAMIN D OR) Take 1 Tab by mouth daily. 0 Active insulin lispro (HUMALOG) 100 UNIT/ML injection Inject into the skin. As directed 0 Active loratadine (CLARITIN) 10 MG tablet Take 10 mg by mouth daily. 0 Active fluticasone 50 MCG/ACT nasal spray Apply 2 sprays into each nostril once daily 1 Bottle 2 06/15/2019 Active medroxyPROGESTERone (DEPO-PROVERA) 150 MG/ML injection Inject 1 mL into the muscle Every 3 Months. 1 mL 3 04/12/2020 Active SYRINGE-NEEDLE, DISP, 3 ML 25G X 5/8 3 ML Misc To inject medication into the skin every 3 months. 4 Each 0 11/13/2020 Active Tresiba FlexTouch 100 UNIT/ML Solution Pen-injector TAKE 60 UNITS DAILY AT BEDTIME AND STOP LANTUS. E 11.9 0 08/16/2020 Active OMEPRAZOLE OR Take by mouth. 0 Active ALBUTEROL SULFATE (Ventolin HFA) 108 (90 Base) MCG/ACT Aero Soln Inhale 2 Puffs into the lungs every 4 hours as needed for Cough, Wheezing or Shortness of Breath. 8.5 g 0 12/26/2020 Active clotrimazole-betame thasone (Lotrisone) creamIndications:Ye ast vaginitis Apply to area sparingly twice a day for up to two weeks 30 g 0 06/19/2021 Active vitamin D (ERGOCALCIFEROL) 1.25 MG (84903 UT) capsule Take 1 capsule by mouth once a week for 8 doses. 8 capsule 0 06/27/2021 Active sumatriptan (IMITREX) 25 MG tablet TAKE ONE TABLET AT ONSET OF HEADACHE, MAY REPEAT DOSE ONCE AFTER 2 HOURS, IF NEEDED. 9 Tablet 0 12/25/2021 Active Active Problems Problem Noted Date Migraine with aura, with int ractable migraine, so stated, with status migrainosus 05/30/2021 Vaginal discharge 04/12/2020 Last Assessment & Plan: Wet prep and yeast culture done today, will treat as indicated. Reviewed vulvar hygiene and encouraged patient to stop using Summer's daisy. Rx for lotrisone cream ePrescribed. Patient to return if symptoms do not improve. Family history of breast cancer in femal e 05/06/2017 Last Assessment & Plan: Recommend patient inquire if her mother underwent genetic testing Genetic counseling ordered today Type 1 diabetes mellitus, uncontrolled 0 12/12/2014 Depression, major, recurrent, moderate Obesity Tobacco use disorder Resolved Problems Problem Noted Date Resolved Date Type 1 diabetes mellitus 015 Overview: [facility] Endocrinology. Dr. Griffin. Dx age 8 Immunizations Name Administration Dates Next Due DTaP 02/16/2003, 0,05/04/1998,03/01/19 98,1997 HIB 09/03/1999, 8,03/01/1998,11/29/18 98 Hepatitis B-3 Dose (<19yrs) 01/05/2015,0 11/17/2014,09/27/1998,10/30/18 98,1997 Influenza (> 6 Months) 05/04/2012,2011,06/11/2007,05/02/20 06 MMR (Lmzvuxy-Jdieq-Yljaqsf) 11/17/2001, 9 Coxjznq-Fsqbb-Wzbywypr + 11/15/2014 Meningococcal (Menactra) 10/04/2008 Qynhs-Kxmhn-Nopwpndl + 11/15/2014 PPD-RBMG 11/15/2014 Pneumococcal(Pedi) Conjugate PCV-7 06/11/2007 Jjdoziv-Cbnel-Bcfuhjzt + 11/15/2014 Tdap 10/04/2008 Varicella 09/03/1999 Family History Medical History Relation Name Comments CA Breast Mother CA Colon Negative Hx CA Ovarian Negative Hx CA Prostate Negative Hx Uterine Cancer Negative Hx Relation Name Status Comments Brother Alive [...] Types Packs/Day Years Used Date Smoking Tobacco: Some Days Cigarettes 0.3 Smokeless Tobacco: Never Comments:patient raza Alcohol Use Standard Drinks/Week Comments Yes 0 (1 standard drink = 0.6 oz pur e alcohol) occ Alcohol Habits Answer Date Recorded How often [...] file Not on file Not on file Last Filed Vital Signs Vital Sign Reading Time Taken Comments Blood Pressure 102/74 06/19/2021 2:23 PM EST Pulse 112 06/19/2021 2:23 PM EST Temperature 36.8 C (98.3 F) 05/30/2021 2:31 PM EST Respiratory Rate 14 06/19/2021 2:23 PM EST Oxygen Saturation 96% 08/10/2019 10: 16 AM EDT Inhaled Oxygen Concentration - - Weight 84.7 kg (186 lb 12.8 oz) 06/19/2021 2:23 PM EST Height 157.5 cm (5' 2 ) 05/30/2021 2:31 PM EST Body Mass Index 34.17 05/30/2021 2:31 PM EST Plan of Treatment Health Maintenance Due Date Last Done Comments Covid-19 Vaccine (#1) 03/03/1998 DIABETES/HEART DISEASE: [place] CHOLESTEROL (LDL) 09/02/2015 DIABETES: ANNUAL EYE EXAM 09/02/2015 DIABETES: ANNUAL FOOT EXAM 09/02/2015 DIABETES: ANNUAL URINE PROTE IN TEST (MICROALBUMIN) 09/02/2015 DIABETES: BLOOD SUGAR CONTRO L TEST (HGBA1C) 09/02/2015 04/05/2015 BASELINE HEALTH EXAM 18-39 2016 PNEUMOCOCCAL VACCINE FOR HIG H RISK PATIENTS (#1) 2016 DTAP/TDAP/TD (7 - Td or Tdap) 10/04/2018, 02/16/2003, 09/03/1999, Additional history exists CERVICAL CANCER SCREENING 04/12/2023 04/12/2020, 04/2020 BMI CHECK/ADVISE 06/02/2024 04/12/2020, , 04/20/2019, Additional history exists INFLUENZA (#1) 2025 05/04/2012, 12/2011, 06/11/2007, Additional history exists Care Teams Journeyman Welder Relationship Specialty Start Date End Date Rebecca Encinas MD [address] [place] [id number] PCP - General Internal Medicine 08/05/22
--- OUTSIDE RECORDS SUMMARY | 2025-01-29 17:10 | XMS_ITS | Encounter Summary ---
Author Organization [facility] Address [address] [place] [address] Care Team Providers Care Payroll Human Resources Assistant Name Role Phone Jinny Louis MD Primary Care Provider Un available [facility], Pcp Primary Care Provider Rebecca Jimenez MD Primary Care Provider [phone] Reason for Visit * Reason Onset Date Comments Micro Lab Analyst Feedback 07/08/2017 [facility] Dr. Castro Encounter Details Date Type Department Care Team Description 07/08/2017 Telephone Pediatrics - [address] [phone] Jinny Louis MD Micro Lab Analyst Feedback ([facility] Children[facility] Dr. Castro) Social History Tobacco Use Types Packs/Day Years Used Date Smoking Tobacco: Every Day Cigarettes 0.3 Smokeless Tobacco: Never Comments:patient raza Alcohol Use Standard Drinks/Week Comments No 0 (1 standard drink = 0.6 oz [...] on file documented as of this encounter Miscellaneous Notes * Telephone Encounter - Lay Mendoza - 07/08/2017 10:04 AM EST Subscriber: WENDY MARTINEZ Submitter : JINNY LOUIS Submitter Type: Provider : 1995 Referral (#[id number]) Specialty Care Review Type: Initial Certification Status : Certified in total Service Type : Medical Care Place Of Service : Other Place of Service Visits : 6 Service Date : 07/03/2017-07/03/2018 Service Providers Provider Name ID Provider Type JONATAN CASTRO NPI : [id number] Service Provider Request via fax. Referral faxed to [phone] documented in this encounter Plan of Treatment Not on file documented as of this encounter Visit Diagnoses Not on filedocumented in this encounter Care Teams Payroll Human Resources Assistant Relationship Specialty Start Date End Date Jinny Louis MD PCP - General Internal Medicine 12/01/13 [facility] Pcp PCP - General Internal Medicine 03/11/22 08/04/22 Rebecca Encinas MD [address] [place] [id number] PCP - General Internal Medicine 08/05/22 documented as of this encounter
--- OUTSIDE RECORDS SUMMARY | 2025-01-29 17:10 | XMS_ITS | Encounter Summary ---
Author Organization [facility] Address [address] [place] [address] Care Team Providers Care Senior Solutions Consultant Name Role Phone Jinny Sanchez MD Primary Care Provider Un available [facility], Pcp Primary Care Provider Rebecca Jimenez MD Primary Care Provider [phone] Reason for Visit * Reason Onset Date Comments Faxed Refill 11/10/2020 SYRINGE-NEEDLE, DISP, 3 ML 25G X 5/8 3 ML Misc Encounter Details Date Type Department Care Team Description 11/10/2020 Refill OBGYN - [address] [address] Johan Askew DO Faxed Refill (SYRINGE-NEEDLE, DISP, 3 ML 25G X 5/8 3 ML Misc) Social History Tobacco Use Types Packs/Day Years Used Date Smoking Tobacco: Some Days Cigarettes 0.3 Smokeless Tobacco: Never Comments:patient raza Alcohol Use Standard Drinks/Week Comments No 0 (1 standard drink = 0.6 oz pur e alcohol) Alcohol Habits Answer Date Recorded How often [...] encounter Miscellaneous Notes * Telephone Encounter - Mary Cummins R.N. - 11/13/2020 1:30 PM EDT Pt was seen by Dr Askew for her annual on 04/2021 * Telephone Encounter - Monique Cabral - 11/13/2020 1:16 PM EDT Patient called in to check on status of the request. Pharmacy told her they have NO refills on filefor patient and that she needs to call office to request a new script be sent. Patient is now 4 days past her due date to give herself depo. Please send paresh * Telephone Encounter - Mary Cummins R.N. - 11/10/2020 4:51 PM EDT Pt gives depo to herself * Telephone Encounter - Maricel Willoughby - 11/10/2020 2:08 PM EDT WHEN WAS THE PATIENTS LAST ANNUAL COOK MANAGER EXAM? 04/12/20 Does patient have an upcoming appointment? No (THE MEDICATION REQUESTED IS ON THE MED LIST ABOVE) Did you check the Pharmacy information above?: YES Indicate how soon the patient needs the script: BY THE END OF THE DAY Patient would like script to be: E-PRESCRIBED/FAXED TO PHARMACY Is the doctor here today?: YES Can the message wait until the doctor returns?: NO Has the patient been told that the prescription will not be filled until the end of the day? NO Payor: [facility] / Plan: POS $20 [place] / Product Type: POS [id number]-Cggjvbl documented in this encounter Plan of Treatment Not on file documented as of this encounter Visit Diagnoses Not on filedocumented in this encounter Care Teams Senior Solutions Consultant Relationship Specialty Start Date End Date Jinny Sanchez MD PCP - General Internal Medicine 12/01/13 [facility] Pcp PCP - General Internal Medicine 03/11/22 08/04/22 Rebecca Encinas MD [address] [place] [id number] PCP - General Internal Medicine 08/05/22 documented as of this encounter
--- OUTSIDE RECORDS SUMMARY | 2025-01-29 17:10 | XMS_ITS | Encounter Summary ---
Author Organization [facility] Address [address] [place] [address] Care Team Providers Care Armature Balancer Name Role Phone Jinny Sanchez MD Primary Care Provider Un available [facility], Pcp Primary Care Provider Rebecca Jimenez MD Primary Care Provider [phone] Reason for Visit * Reason Onset Date Comments refill request 04/15/2017 Encounter Details Date Type Department Care Team Description 04/15/[address] [address] Annie Kulkarni CNM refill request Social History Tobacco Use Types Packs/Day Years [...] encounter Miscellaneous Notes * Telephone Encounter - Keily Blanco - 04/15/2017 4:34 PM EST WHEN WAS THE PATIENTS LAST ANNUAL RESIDENT SERVICES COORDINATOR EXAM? 03/06/16 Does patient have an upcoming appointment? Yes 05/06/17 (THE MEDICATION REQUESTED IS ON THE MED [...] the end of the day? NO Payor: [facility] / Plan: POS $20 [place] / Product Type: POS [id number] documented in this encounter Plan of Treatment Not on file documented as of this encounter Visit Diagnoses Not on filedocumented in this encounter Care Teams Armature Balancer Relationship Specialty Start Date End Date Jinyn Sanchez MD PCP - General Internal Medicine 12/01/13 [facility] PCP - General Internal Medicine 03/11/22 08/04/22 Rebecca Encinas MD [address] [place] [id number] PCP - General Internal Medicine 08/05/22 documented as of this encounter
--- OUTSIDE RECORDS SUMMARY | 2025-01-29 17:10 | XMS_ITS | Encounter Summary ---
Author Organization [facility] Address [address] [place] [address] Care Team Providers Care Senior Clinical Project Manager Name Role Phone Jinny Sanchez MD Primary Care Provider Un available [facility], Pcp Primary Care Provider Rebecca Jimenez MD Primary Care Provider [phone] Reason for Visit * Reason Onset Date Comments Orders Call 11/14/2014 Encounter Details Date Type Department Care Team Description 11/14/2014 Telephone Medicine/Pediatrics - [address] [phone] Jinny Sanchez MD Orders Call Social History Tobacco Use Types Packs/Day Years Used Date Smoking Tobacco: Never Smokeless Tobacco: Never Alcohol Use Standard Drinks/Week Comments No 0 [...] encounter Miscellaneous Notes * Telephone Encounter - Rosana Lambert M.A. - 11/14/2014 1:13 PM EDT Unable to leave voicemail. Need to come in for titers and PPD plant. * Telephone Encounter - Jinny Sanchez MD - 11/14/2014 12:47 PM EDT Ordered. * Telephone Encounter - Jennifer BullardPRichardN. 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 She is unsure if she needs a HEPb and MMR or just titers. Please call when done to schedule appt. documented in this encounter Plan of Treatment Not on file documented as of this encounter Results * TB INTRADERMAL TEST (11/15/2014 10:23 AM EDT) PPD Induration (PPD) NO INDURATION 11/15/2014 10:2 3 AM EDT Jinny Sanchez MD LAB * HEPATITIS B SURFACE AB TEST (11/15/2014 10:09 AM EDT) Hepatitis B surface antibody NEGATIVE 11/15/2014 12:27 PM EDT [facility] Comment: This test is not intended for use as an aid in determining immune status to HBV infection prior to or following vaccination in infants, children or adolescents. 11/15/2014 10:0 9 AM EDT 11/15/2014 10:09 AM EDT Jinny Sanchez MD LAB [facility] [address] [facility] * RUBELLA ANTIBODY (11/15/2014 10:09 AM EDT) RUBELLA ANTIBODY POSITIVE POSITIVE 11/16/2014 1:15 PM EDT [facility] 11/15/2014 10:0 9 AM EDT 11/15/2014 10:09 AM EDT Jinny Sanchez MD LAB Performing Organization Address [facility] Co de Phone Number [address] * RUBEOLA ANTIBODY IGG (11/15/2014 10:09 AM EDT) MEASLES IGG POSITIVE POSITIVE 11/16/2014 1:15 PM EDT [facility] 11/15/2014 10:0 9 AM EDT 11/15/2014 10:09 AM EDT Jinny Sanchez MD LAB Performing Organization Address [facility] de Phone Number [address] * MUMPS ANTIBODY IGG,MANNY (11/15/2014 10:09 AM EDT) MUMPS IGG POSITIVE POSITIVE 11/16/2014 1:15 PM EDT [facility] 11/15/2014 10:0 9 AM EDT 11/15/2014 10:09 AM EDT Jinny Sanchez MD LAB Performing Organization Address [facility] de Phone Number [address] documented in this encounter Visit Diagnoses Diagnosis Screening examination for pulmonary tuberculosis- Primary Other specified counseling documented in this encounter Care Teams Senior Clinical Project Manager Relationship Specialty Start Date End Date Jinny Sanchez MD PCP - General Internal Medicine 12/01/13 [facility], Pcp PCP - General Internal Medicine 03/11/22 08/04/22 Rebecca Encinas MD [address] [place] [id number] PCP - General Internal Medicine 08/05/22 documented as of this encounter
--- OUTSIDE RECORDS SUMMARY | 2025-01-29 17:10 | XMS_ITS | Encounter Summary ---
Author Organization [facility] Address [address] [place] [address] Care Team Providers Care Circuit Recorder Name Role Phone Jinny Sanchez MD Primary Care Provider Un available [facility], Pcp Primary Care Provider Rebecca Jimenez MD Primary Care Provider [phone] Encounter Details Date Type Department Care Team Description 07/12/2020 Sec Accountant Report Medical Records [address] [place] [id number] [place] [address] Endocrine And Diabetes Social History Tobacco Use Types Packs/Day Years [...] on filedocumented in this encounter Care Teams Circuit Recorder Relationship Specialty Start Date End Date Jinny Sanchez MD PCP - General Internal Medicine 12/01/13 [facility], Pcp PCP - General Internal Medicine 03/11/22 08/04/22 Rebecca Encinas MD [address] [place] [id number] PCP - General Internal Medicine 08/05/22 documented as of this encounter
--- OUTSIDE RECORDS SUMMARY | 2025-01-29 17:10 | XMS_ITS | Encounter Summary ---
Author Organization [facility] Address [address] [place] [address] Care Team Providers Care Chinese Teacher Name Role Phone Jinny Sanchez MD Primary Care Provider Un available [facility], Pcp Primary Care Provider Rebecca Jimenez MD Primary Care Provider [phone] Encounter Details Date Type Department Care Team Description 03/31/2015 Transfer Records Medical Records [address] [place] [id number] Abstract, Provider Social History Tobacco Use Types Packs/Day Years Used Date Smoking Tobacco: Every Day Cigarettes 0.5 Smokeless Tobacco: Never Comments:patient raaz Alcohol Use Standard Drinks/Week Comments Yes 0 (1 standard drink = 0.6 oz pure alcohol) drinks sporadically socially - binge drinking Alcohol Habits Answer Date Recorded How often [...] on filedocumented in this encounter Care Teams Chinese Teacher Relationship Specialty Start Date End Date Jinny Sanchez MD PCP - General Internal Medicine 12/01/13 [facility], Pcp PCP - General Internal Medicine 03/11/22 08/04/22 Rebecca Encinas MD [address] [place] [id number] PCP - General Internal Medicine 08/05/22 documented as of this encounter
--- OUTSIDE RECORDS SUMMARY | 2025-01-29 17:10 | XMS_ITS | Encounter Summary ---
Author Organization [facility] Address [address] [place] [address] Care Team Providers Care Supervisor Inspecting Name Role Phone Jinny Sanchez MD Primary Care Provider Un available [facility], Pcp Primary Care Provider Rebecca Jimenez MD Primary Care Provider Reason for Visit * Reason Onset Date Comments Appointment Cancelled 04/28/2019 Encounter Details Date Type Department Care Team Description 04/28/2019 Telephone LIVESTOCK SHOWMAN - [address] [address] Aashish Hdez, [address] [place] [address] Appointment Cancelled Social History Tobacco Use Types Packs/Day Years [...] encounter Miscellaneous Notes * Telephone Encounter - Jaclyn Burch M.A. - 04/28/2019 12:54 PM EST Attempted to call patient to reschedule her appointment today with Aashish Hdez because we need herultrasound done and resulted before she can be seen. Appointment has been canceled as she couldn't be reached, please have her reschedule when she calls. Thank you. -AC documented in this encounter Plan of Treatment Not on file documented as of this encounter Visit Diagnoses Not on filedocumented in this encounter Care Teams Supervisor Inspecting Relationship Specialty Start Date End Date Jinny Sanchez MD PCP - General Internal Medicine 12/01/13 [facility], Pcp PCP - General Internal Medicine 03/11/22 08/04/22 Rebecca Encinas MD [address] [place] [phone] PCP - General Internal Medicine 08/05/22 documented as of this encounter
--- OUTSIDE RECORDS SUMMARY | 2025-01-29 17:10 | XMS_ITS | Clinical Summary ---
Author Organization [facility] Address [address] [place] [address] Phone Care Team Providers Care Store Sales Consultant Name Role Phone Rebecca Encinas MD Primary Care Provider [phone] Allergies Active Allergy Reactions Criticality Noted Date [...] 30 each 3 11/12/19 25 2025 Active ondansetron ODT (ZOFRAN-ODT) 8 mg disintegrating tablet DISSOLVE 1 TABLET ON TOP OF TONGUE EVERY 8 HOURS NEEDED FOR NAUSEA OR VOMITING FOR UP TO 7 DAYS 20 tablet 12/30/19 25 Active SUMAtriptan (IMITREX) 100 mg tablet TAKE 1 TABLET BY MOUTH 1 TIME IF NEEDED FOR MIGRAINE. MAY REPEAT DOSE ONCE IN 2 HOURS IF NO RELIEF. DO NOT EXCEED 2 DOSES IN 24 HOURS. 9 tablet 1 01/27/20 25 Active SUMAtriptan (IMITREX) 100 mg tablet Take 1 tablet (100 mg total) by mouth 1 (one) time if needed for migraine. May repeat dose once in 2 hours if no relief. Do not exceed 2 doses in 24 hours. 9 tablet 1 11/17/19 25 2024 Discontinued Active Problems Problem Noted [...] diabetes mellitus wit hout complication (CMS/HCC V24, CMS/[facility] V28) 06/25/2024 Depression, major, recurrent [...] 1:00 PM EDT Office Visit Adult Medicine [address] [address] Rebecca Encinas MD Type 1 diabetes mellitus without complication (CMS/HCC V24, CMS/HCC V28) (Primary Dx); Primary hypertension; Migraine with aura, with intractable migraine, so stated, with status migrainosus 11/11/2024 1:00 PM EDT Office Visit Gastroenterology - [place] [facility] [address] [facility] [address] [place] [address] Charity Wall PA Gastroesophageal reflux disease, unspecified whether esophagitis present (Primary Dx); Nausea and vomiting, unspecified vomiting type; Acute superficial gastritis without hemorrhage; Hepatic adenoma from Last 3 Months Immunizations Name Administration Dates Next Due DTaP (Infanrix) 6wks to less than 7yo ,09/03/1999,05/04/1998,1997,1997 SEvA-PNR-SRC (Pentacel) 2mo to less than 5yo 09/03/1999,05/04/1998,03/01/1998,1997 [...] ENDOSCOPY 2007 PROCEDURE: UPPER GI ENDOSCOPY/EXAM; COMMENT: [facility] Medical History Medical History Date Comments Type 1 diabetes mellitus (CM S/HCC V24, CMS/HCC V28) DX:Type 1 diabetes mellitus (HCC); COMMENT: [facility] Endocrinology. Dr. Griffin. Dx age [...] disclose 2023 7:52 AM EST Obstetrics History * This document contains information received from the source organization and may not represent a complete record from that organization. Para Term AB IAB SAB Ectopic Multiple Livin g Live Births 2 0 0 0 0 0 0 0 Date Outcome GA Total Labor Labor/2nd/3rd Weight Sex Type Anes PTL Teetee A1 A5 Name Clin Last Filed Vital Signs Vital Sign Reading [...] Info) Description 02/11/2025 8:15 AM EDT Appointment [facility] [address] [place] [address] 03/03/2025 8:30 AM EDT Office Visit Adult Medicine [facility] [address] [place] [address] Rebecca Encinas MD [address] [place], [place] 05/16/2025 8:50 AM EST Office Visit Gastroenterology - [place] [address] [facility] [address] [facility] [address] [place] [address] Charity Wall PA [address] [place] [address] Health Maintenance Due Date Last Done Comments [...] Associated Diagnosis Comments EXTERNAL XRAY REPORT 12/01/2024 BASIC METABOLIC PANEL Routine 08/19/2024 11:08 AM EDT Type 1 diabetes mellitus without complication ([facility] V24, [facility] V28) CHLAMYDIA TRACHOMATIS AND NEISSERIA GONORRHOEAE PCR Routine 07/27/2024 3:19 PM EST Screen for STD (sexually transmitted disease) HEMOGLOBIN A1C Routine 06/25/2024 2:07 PM EST Type 1 diabetes mellitus without complication (CMS/HCC V24, CMS/HCC V28) HEPATITIS C SCREENING Routine 11/23/2020 HIV SCREENING Routine 11/23/2020 PAP SMEAR Routine 04/12/2020 from Last 3 Months or Most Recently Relevant to Health Maintenance Results * External Xray Report (12/01/2024) Anatomical Region Laterality Modality Radiographic Jihan ging us Provider [facility] IMG XR PROCEDURES Final Result * (ABNORMAL) Basic metabolic panel (08/19/2024 11:08 AM EDT) Sodium 136 133 - 145 mmol/L LAB CHEMISTRY METHOD 08/19/2024 5:15 PM [facility] Potassium 4.7 3.5 - 5.5 mmol/L LAB CHEMISTRY METHOD 08/19/2024 5:15 PM [facility] Chloride 104 96 - 110 mmol/L LAB CHEMISTRY METHOD 08/19/2024 5:15 PM [facility] CO2 26 21 - 32 mmol/L LAB CHEMISTRY METHOD 08/19/2024 5:15 PM [facility] Anion Gap 6 3 - 11 LAB CHEMISTRY METHOD 08/19/2024 5:15 PM [facility] Glucose 147(H) 70 - 100 mg/dL LAB CHEMISTRY METHOD 08/19/2024 5:15 PM [facility] BUN 22 5 - 25 mg/dL LAB CHEMISTRY METHOD 08/19/2024 5:15 PM [facility] Creatinine 0.80 0.50 - 1.10 mg/dL LAB CHEMISTRY METHOD 08/19/2024 5:15 PM [facility] eGFR 104 >=60 mL/min/1. 73m2 LAB CHEMISTRY METHOD 08/19/2024 5:15 PM EDT [facility] Comment:Calculation based on the Chronic Kidney Disease Epidemiology Collaboration (CKD-EPI) equation refit without adjustment for race. BUN/Creatinine Ratio 27.5 LAB CHEMISTRY METHOD 08/19/2024 5:15 PM EDT [facility] Calcium 9.4 8.5 - 10.5 mg/dL LAB CHEMISTRY METHOD 08/19/2024 5:15 PM EDT [facility] Blood Venous blood specimen / Unknown Venipuncture / Unknown 08/19/2024 11:08 AM EDT 08/19/2024 11:08 AM EDT Rebecca Encinas MD LAB BLOOD ORDERABLES Final Resul t Performing Organization Address City/Va Hospital/ZIP Co de Phone Number [facility] [address] [place] [address], [place] [phone] * Chlamydia trachomatis and Neisseria gonorrhoeae molecular study (07/27/2024 3:19 PM EST) Neisseria gonorrhoeae PCR Negative Negative LAB MOLECULAR DIAGNOSTICS METHOD 07/28/2024 9:36 AM EST [facility] Chlamydia trachomatis PCR Negative Negative LAB MOLECULAR DIAGNOSTICS METHOD 07/28/2024 9:36 AM EST [facility] Swab Cervix uteri structure / Unknown Non-blood Collection / Unknown 07/27/2024 3:19 PM EST 07/27/2024 3:19 PM EST Marbella Pro MD LAB MICROBIOLOGY - GENERAL ORDERABLES Final Result [facility] [address] [place] [address], [place] [phone] * (ABNORMAL) Hemoglobin A1c (06/25/2024 2:07 PM EST) Hemoglobin A1C 11.3(H) <6.5 % LAB CHEMISTRY METHOD 06/25/2024 9:47 PM EST [facility] Mean Bld Glu Estim. 278 mg/dL LAB CHEMISTRY METHOD 06/25/2024 9:47 PM EST [facility] Blood Venous blood specimen / Unknown Venipuncture / Unknown 06/25/2024 2:07 PM EST 06/25/2024 2:07 PM EST Rebecca Encinas MD LAB BLOOD ORDERABLES Final Resul t [facility]) [facility] [address] [place] [address], [place] [phone] * HIV Screening (11/23/2020) HIV Screening abstracted Historical Provider HEALTH MAINTENANCE Final Result * Hepatitis C Screening (11/23/2020) Hepatitis C Screening abstracted Historical Provider HEALTH MAINTENANCE Final Result * Pap smear (04/12/2020) 04/12/2020 Narrative HISTORICAL TESTING LAB RESULTING AGENCY - 04/14/2020 12:26 PM EST [id number] THINPREP PAP, IMAGED: NEGATIVE FOR SQUAMOUS INTRAEPITHELIAL [...] Most Recently Relevant to Health Maintenance Insurance [employer] Care Teams Store Sales Consultant Relationship Specialty Start Date End Date Rebecca Encinas MD [address] [place] [phone] PCP - General Internal Medicine 09/10/24
--- OUTSIDE RECORDS SUMMARY | 2025-01-29 17:10 | XMS_ITS | Encounter Summary ---
Author Organization [facility] Address [address] [place] [address] Care Team Providers Care Parachute Marker Name Role Phone Jinny Sanchez MD Primary Care Provider Un available [facility], Pcp Primary Care Provider Rebecca Jimenez MD Primary Care Provider [phone] Encounter Details Date Type Department Care Team Description 07/03/2017 Solutions Executive Security Report Medical Records [address] [place] [id number] Marixa Griffin, DO Social History Tobacco Use Types Packs/Day Years [...] on filedocumented in this encounter Care Teams Parachute Marker Relationship Specialty Start Date End Date Jinny Sanchez MD PCP - General Internal Medicine 12/01/13 [facility], Pcp PCP - General Internal Medicine 03/11/22 08/04/22 Rebecca Encinas MD [address] [place], [place] [phone] PCP - General Internal Medicine 08/05/22 documented as of this encounter
--- OUTSIDE RECORDS SUMMARY | 2025-01-29 17:10 | XMS_ITS | Encounter Summary ---
Author Organization [facility] Address [address] [place] [address] Care Team Providers Care Certified Pediatric Nurse Practitioner Name Role Phone Jinny Sanchez MD Primary Care Provider Un available [facility], Pcp Primary Care Provider Rebecca Jimenez MD Primary Care Provider [phone] Reason for Visit * Reason Onset Date Comments Error 11/11/2014 Encounter Details Date Type Department Care Team Description 11/11/2014 Telephone Medicine/Pediatrics - [address] [address] Jinny Sanchez MD Error Social History Tobacco Use Types Packs/Day Years [...] Miscellaneous Notes * Telephone Encounter - Keily Pacheco - 11/11/2014 4:39 PM EDT error documented in this encounter Plan of Treatment Not on file documented as of this encounter Visit Diagnoses Not on filedocumented in this encounter Care Teams Certified Pediatric Nurse Practitioner Relationship Specialty Start Date End Date Jinny Sanchez MD PCP - General Internal Medicine 12/01/13 [facility], Pcp PCP - General Internal Medicine 03/11/22 08/04/22 Rebecca Encinas MD [address] [place] [address] PCP - General Internal Medicine 08/05/22 documented as of this encounter
--- OUTSIDE RECORDS SUMMARY | 2025-01-29 17:10 | XMS_ITS | Encounter Summary ---
Author Organization [facility] Address [address] [place] [address] Care Team Providers Care Sole Leveler Machine Name Role Phone Jinny Sanchez MD Primary Care Provider Un available [facility], Pcp Primary Care Provider Rebecca Jimenez MD Primary Care Provider [phone] Reason for Visit * Reason Onset Date Comments Depo Provera injection 08/09/2020 Encounter Details Date Type Department Care Team Description 08/09/2020 Telephone OBGYN - [place] [address] [place] [address] Marbella Pro MD [address] [place] [id number] Depo Provera injection Social History Tobacco Use Types Packs/Day Years [...] file Not on file Not on file COVID-19 Exposure Response Date Recorded In the last month, have you been in contact with someone who was confirmed or suspected to have Coronavirus / COVID-19? No / Unsure 07/19/2020 9:01 AM EST documented as of this encounter Miscellaneous Notes * Telephone Encounter - Veronica Duarte - 08/09/2020 11:05 AM EST FYI Pt called to let office know she is giving herself her depo injection today. documented in this encounter Plan of Treatment Not on file documented as of this encounter Visit Diagnoses Not on filedocumented in this encounter Care Teams Sole Leveler Machine Relationship Specialty Start Date End Date Jinny Sanchez MD PCP - General Internal Medicine 12/01/13 [facility] Pcp PCP - General Internal Medicine 03/11/22 08/04/22 Rebecca Encinas MD [address] [place] [phone] PCP - General Internal Medicine 08/05/22 documented as of this encounter
--- OUTSIDE RECORDS SUMMARY | 2025-01-29 17:10 | XMS_ITS | Encounter Summary ---
Author Organization [facility] Address [address] [place] [address] Care Team Providers Care Machine Plaster Mixer Name Role Phone Jinny Sanchez MD Primary Care Provider Un available [facility], Pcp Primary Care Provider Rebecca Jimenez MD Primary Care Provider [phone] Reason for Visit * Reason Onset Date Comments TEST RESULTS 08/06/2016 Encounter Details Date Type Department Care Team Description 08/06/[address] [phone] Annie Kulkarni CNM TEST RESULTS Social History Tobacco Use Types Packs/Day Years [...] Telephone Encounter - Mary Cummins R.N. - 08/09/2016 11:33 AM EST Letter sent. * Telephone Encounter - Mary Cummins R.N. - 08/08/2016 9:45 AM EST My chart message sent * Telephone Encounter - Mary Cummins R.N. - 08/07/2016 9:54 AM EST Left message to call. * Telephone Encounter - Jacki Knowles M.A. - 08/06/2016 8:45 AM EST Left message for patient to call us back * Telephone Encounter - Jacki Knowles M.A. - 08/06/2016 8:44 AM EST Message copied by JACKI KNOWLES M.A. on FriAug 06, 2016 8:44 AM ------ Message from: ANNIE LAINEZ C.N.M. Created: FriAug 06, 2016 8:16 AM Please call patient with abnormal result. Your test indicates that you have bacterial vaginosis. You do not have a yeast infection or trichomonas. Please fill the prescription that is at the pharmacyfor you. If you have any further issues, do not hesitate to contact me. Telephone Information: Work Phone Not on file. Mobile Not on file. Thanks! Annie Lainez CNM ------ documented in this encounter Plan of Treatment Not on file documented as of this encounter Visit Diagnoses Not on filedocumented in this encounter Care Teams Machine Plaster Mixer Relationship Specialty Start Date End Date Jinny Sanchez MD PCP - General Internal Medicine 12/01/13 [facility]cp PCP - General Internal Medicine 03/11/22 08/04/22 Rebecca Encinas MD [address] [place] [address] PCP - General Internal Medicine 08/05/22 documented as of this encounter
--- OUTSIDE RECORDS SUMMARY | 2025-01-29 17:10 | XMS_ITS | Encounter Summary ---
Author Organization [facility] Address [address] [place] [address] Care Team Providers Care Fire Prevention Chief Name Role Phone Jinny Sanchez MD Primary Care Provider Un available [facility], Pcp Primary Care Provider Rebecca Jimenez MD Primary Care Provider [phone] Encounter Details Date Type Department Care Team Description 10/30/2017 Mrb Engineer Report Medical Records [address] Children' Social History Tobacco Use Types Packs/Day Years [...] on filedocumented in this encounter Care Teams Fire Prevention Chief Relationship Specialty Start Date End Date Jinny Sanchez MD PCP - General Internal Medicine 12/01/13 [facility], Pcp PCP - General Internal Medicine 03/11/22 08/04/22 Rebecca Encinas MD [address] [place], [place] [phone] PCP - General Internal Medicine 08/05/22 documented as of this encounter
--- OUTSIDE RECORDS SUMMARY | 2025-01-29 17:10 | XMS_ITS | Encounter Summary ---
Author Organization [facility] Address [address] [place] [address] Care Team Providers Care Steel Burner Name Role Phone Jinny Sanchez MD Primary Care Provider Un available [facility], Pcp Primary Care Provider Rebecca Jimenez MD Primary Care Provider Encounter Details Date Type Department Care Team Description 07/23/2016 Pt. Non Urgent Medic al Question Medicine/Pediatrics - [address] [address] Bharat Jain PA-C Social History Tobacco Use Types Packs/Day Years [...] on file documented as of this encounter Progress Notes * Jennifer Rosa L.P.N. - 07/24/2016 8:36 AM ESTFrom: Wendy Otoole To: Bharat Jain PA-C Sent: 07/23/2016 10:14 PM EST Subject: Flexeril The muscle relaxers aren't helping at all, I even tried taking 2.... I now have a fluid filled sack in the front portion of my armpit.... it's VERY painful!!! documented in this encounter Plan of Treatment Not on file documented as of this encounter Visit Diagnoses Not on filedocumented in this encounter Care Teams Steel Burner Relationship Specialty Start Date End Date Jinny Sanchez MD PCP - General Internal Medicine 12/01/13 [facility] [place] PCP - General Internal Medicine 03/11/22 08/04/22 Rebecca Encinas MD [address] [place] [id number] PCP - General Internal Medicine 08/05/22 documented as of this encounter
[2025-01-29 18:08] LABS: Mean Corpuscular Hemoglobin 29.9 pg (27.0-33.0); NRBC Abs Auto 0.000 X10*3/uL (0.0-0.012); NRBC Pct Auto 0.0 /100WBC (0.0-0.2); PLT CLUMP 1; SCAN SMEAR FLAG 1
[2025-01-29 18:09] LABS: D Dimer High Sensitivity < 150 NG/ML
[2025-01-29 18:10] LABS: Hematocrit 35.3 % (37.0-47.0); Hemoglobin 12.0 g/dl (12.0-16.0); Imm Gran Abs Auto 0.02 X10*3/uL (0.00-0.03); Imm Gran Pct Auto 0.2 % (0.0-0.4); Lymphocytes Absolute Auto 3.0 X10*3/uL (1.2-4.9); MANUAL DIFF FLAG SCAN; Mean Corpuscular HGB Conc 34.0 g/dl (31.0-35.0); Mean Corpuscular Volume 87.8 fL (80.0-98.0); Red Blood Count 4.02 X10*6/uL (4.20-5.50)
[2025-01-29 18:13] LABS: White Blood Count 10.7 X10*3/uL (4.8-10.8)
[2025-01-29 18:16] LABS: Alanine Aminotransferase 11 U/L (0-31); Albumin Level 3.4 g/dL (3.5-5.0); Alkaline Phosphatase 90 U/L (39-117); Anion Gap 15 (12-20); Aspartate Amino Transferase 15 U/L (5-31); B Type Natriuretic Peptide 138 pg/mL (<100); Blood Urea Nitrogen 28 mg/dL (9-16); Calcium 8.8 mg/dL (8.4-10.2); Carbon Dioxide 20 mmol/L (22-29); Chloride 108 mmol/L (96-108); Creatinine Clr Calc Pharmacy 99.9; Estimated Glomerular Filt Rate > 60; Lipase 9 U/L (8-78); Potassium 4.8 mmol/L (3.3-5.1); Sodium 138 mmol/L (135-145); Total Protein 6.5 g/dL (6.5-8.0)
[2025-01-29 18:19] LABS: Troponin-I High Sensitivity < 2.7 ng/L (<3.5-17.0)
[2025-01-29 18:30] LABS: Appearance Urine Clear; Glucose Urine UA 100 mg/dL (Negative); PH 5.5 (5.0-9.0); Specific Gravity - Urine 1.015 (1.005-1.025); UMIC TRIGGER UACC YES
[2025-01-29 19:41] VITALS: BP 181/94; PULSE 100; RESP 18; TEMP 36.4; O2SAT 100
== END 2025-01-29 19:42 | disposition home or self-care (01) ==
PROVIDERS: Physician Assistant; Emergency Provider Emergency Medicine; PCP Internal Medicine
DX: M79.605 Pain in left leg (principal); R06.02 Shortness of breath; R11.10 Vomiting, unspecified; E10.9 Type 1 diabetes mellitus without complications; R60.0 Localized edema; Z79.4 Long term (current) use of insulin; Z79.899 Other long term (current) drug therapy
CPT/HCPCS: 36415; 71046; 80053; 81001; 83690; 83880; 84484; 84702; 85025; 85379; 93005; 93971; 99284

== ENCOUNTER → 2025-01-29 16:45 | Outpatient (BNV) | payer OTHER, SELFPAY | PROVIDERS: Emergency Provider Emergency Medicine; PCP Internal Medicine; Visit Provider Radiology Diagnostic Radiology | DX: M79.662 Pain in left lower leg (principal); R07.9 Chest pain, unspecified | CPT/HCPCS: 71046; 93971 ==

== ENCOUNTER → 2025-01-29 16:45 | Outpatient (BNV) | payer OTHER, SELFPAY | PROVIDERS: Emergency Provider Emergency Medicine; PCP Internal Medicine; Visit Provider Internal Medicine | DX: R06.02 Shortness of breath (principal) | CPT/HCPCS: 93010 ==

== ENCOUNTER 2025-02-03 12:51 | Outpatient (AMB) | payer OTHER, SELFPAY ==
[2025-02-03 12:54] VITALS: BP 146/88; PULSE 92; BMI 39.6
--- NOTE | 2025-02-03 12:54 | A.OFFVIS_ITS ---
Vital Signs 02/03/25 12:54 Height 5 ft 2 in Weight 216 lb 7.903 oz BMI 39.6 BP 146/88 H Blood Pressure Location Lt brachial Position Sitting Pulse 92 Pulse Source Pulse Oximeter Intake Visit Reasons: NLM-SB-Zeuarb up-SOB Accompanied by: Self / Same As Patient Allergies Sulfa (Sulfonamide Antibiotics) (SULFA (SULFONAMIDE ANTIBIOTICS)) Allergy (Unknown, Verified 02/03/25 12:58) HIVES clindamycin Allergy (Verified 02/03/25 12:58) Hives fish derived (fish) Allergy (Verified 02/03/25 12:58) Anaphylaxis Medication List - Last Reconciled 02/03/25 by Alexandr Edmondson NP acetone (urine) test (Ketone Urine Test strips) As directed albuterol sulfate 90 mcg/actuation (Ventolin HFA) 2 puffs inhalation QID PRN amlodipine 10 mg See Protocol PO DAILY@2000 blood-glucose sensor (Dexcom G7 Sensor device) As directed esomeprazole magnesium 40 mg PO QAM furosemide (Lasix) 20 mg PO DAILY PRN glucagon 3 mg/actuation (Baqsimi) 3 mg intranasal ONCE insulin glargine (Lantus Solostar U-100 Insulin) 40 units subcut BEDTIME insulin lispro (Humalog KwikPen (U-100) Insulin) 1 sliding scale dose subcut TID loratadine 10 mg PO DAILY losartan 200 mg (2 x 100 mg) PO DAILY ondansetron 4 mg PO Q8H PRN pen needle, diabetic (Comfort EZ Pen Earling) As directed injects 4 X/day sumatriptan succinate 25 mg PO DAILY PRN HPI Comments Details: This is a 29-year-old female patient come in for a hospital discharge follow-up visit. Patient with history of diabetes, hypertension, obesity, CHF, and substance use disorder. Patient was previously seen in the office for hospital discharge follow-up after new onset congestive heart failure. Patient underwent a stress echo which was normal. Patient recently went to the urgent care for left leg pain and swelling with some shortness of breath and therefore was sent to emergency room for ruling out DVT/PE. Testings were unremarkable in the ER and was discharged home. Today, patient reports that she has been having the intermittent leg swelling and shortness of breath with nonproductive cough where patient has to use her rescue inhaler more than 4 times a day. Patient has also independently started taking Lasix daily which has helped with her leg swelling. Patient notes that she has not used cocaine in the last over 4 months for which patient was commended. Patient is otherwise reporting compliance with all her medications. 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 Cocaine use Surgical History No pertinent past surgical history Family History Father Hypertension Mother Hypertension Diabetes Social History Household Members: Family Housing: House Do you presently have visiting nurse or other home services: No Alcohol intake: current Alcohol intake frequency: holidays/special occasions only Patient Tobacco Use Status: Never used Tobacco Substance Use Type: Marijuana service: No Review of Systems Const Denies daytime sleepiness, Denies difficulty sleeping, Denies snoring, Denies stops breathing during sleep and Denies weakness Card Denies chest pain, Denies rapid heart rate, Denies irregular heart rhythm, Denies claudication, Denies leg edema, Denies lightheadedness, Reports palpitations, Reports dyspnea, Reports dyspnea on exertion, Reports orthopnea, Denies paroxysmal nocturnal dyspnea and Denies slow heart rate Resp Denies cough, Reports dyspnea, Reports dyspnea on exertion and Denies snoring GI Reports no additional complaints, Denies hematochezia, Denies change in stool character and Denies dyspepsia Musc Denies abnormal gait, Denies muscle weakness and Denies numbness Neuro Denies abnormal gait, Denies numbness and Denies weakness Endo Reports palpitations Physical Exam Vital Signs: Last Vital Signs Pulse 92 02/03/25 12:54 BP 146/88 H 02/03/25 12:54 BMI result Body Mass Index 39.6 Const General: cooperative, healthy appearing, comfortable and no acute distress Orientation/consciousness: patient oriented x3 HEENT Head: Yes normal to inspection Neck Neck: Yes normal visual inspection, Yes trachea midline and Yes supple Chest Chest palpation & inspection: normal inspection of the chest Resp Effort & Inspection: normal respiratory effort Auscultation: clear to auscultation bilaterally, no crackles, no rales, no rhonchi and no wheezes Cardio Jugular venous distension: no JVD Palpation: normal PMI Rate: regular rate Rhythm: regular rhythm Heart sounds: S1 normal heart sound present, S2 normal heart sound present, no click, no gallops, Murmur heart sound present systolic at the right sternal border and no rubs Peripheral pulses: Peripheral pulses 2+ throughout GI Inspection: Yes normal to inspection Palpation (GI): Soft to palpation Auscultation: normal bowel sounds Skin General skin exam: no rashes or lesions noted Neuro General: patient oriented x3 Extrem General: Yes normal to inspection, No no pedal edema and No calf tenderness Psych Appearance: grossly normal Mental Status: mental status grossly normal Speech and movement: Normal speech and movement present Assessment & Plan Assessment & Plan (1) Murmur: Code(s): R01.1 - Cardiac murmur, unspecified Category: Medical Plan: 09/22/2024-echo study showed a normal LV systolic function with an ejection fraction between 55-60%, with grade 2 diastolic dysfunction. No wall motion abnormalities or valvular pathology. On exam today, patient has a systolic murmur and therefore we will repeat an echo. Clinically euvolemic. Patient is currently taking low-dose Lasix on a daily basis. Recommended to continue with this. Advised on low-salt diet, regular exercise, wearing compression stockings, daily weight monitoring, and fluid restriction of 2 L daily. (2) SOB (shortness of breath): Code(s): R06.02 - Shortness of breath Category: Medical Plan: 11/17/2024-patient underwent a stress echocardiogram that was negative for ischemia at achieved workload. Patient also has a history of asthma currently being managed by PCP. Patient states that she is only on the rescue inhaler that she is having to use more than 4 times a day. We will get a pulmonary function test and refer patient to pulmonology for asthma management. (3) Hypertension: Code(s): I10 - Essential (primary) hypertension Category: Medical Qualifiers: Hypertension type: primary hypertension Qualified Code(s): I10 - Essential (primary) hypertension Plan: Blood pressure today is mildly elevated. Followed by Nephrology. Continue current regimen. If patient is blood pressure continues to be elevated with daily Lasix, patient may need further antihypertensive adjustments. Advised to monitor blood pressures at home and maintain a log of it. (4) Type 1 diabetes: Code(s): E10.9 - Type 1 diabetes mellitus without complications Category: Medical Qualifiers: Diabetes mellitus complication detail: with nephropathy Diabetes mellitus complication status: with kidney complications Qualified Code(s): E10.21 - Type 1 diabetes mellitus with diabetic nephropathy Plan: Continue aggressive diabetes management. Followed by endocrinology. (5) Hospital discharge follow-up: Code(s): Z09 - Encounter for follow-up examination after completed treatment for conditions other than malignant neoplasm Plan: As above. Advised heart healthy diet, regular exercise, losing weight, med compliance, continue to avoid cocaine use, and management of vascular risk factors. We will follow-up with the patient after testings. In the interim, patient will call the office with any concerns or change in symptoms. This note was generated using voice recognition software. While every effort has been made to ensure accuracy and proper senior vice president and chief information officer, there may be occasional errors that could affect the content or meaning of the described symptoms. Orders: Orders PFT pulmonary function test Today J45.909 - Unspecified asthma, uncomplicated, R06.02 - Shortness of breath CA echo transthoracic complete Today R01.1 - Cardiac murmur, unspecified Basic Metabolic Panel Today R06.02 - Shortness of breath Referrals Pulmonology Referral J45.909 - Unspecified asthma, uncomplicated, R06.02 - Shortness of breath Medications: Changed From furosemide (Lasix) 20 mg PO DAILY PRN 30 tabs 5RF edema To furosemide (Lasix) 20 mg PO DAILY 30 tabs 5RF edema Coding Level of Care Code Est Pt Level 4 (85628) Complex EM visit Add On G2211 Diagnoses Murmur R01.1 SOB (shortness of breath) R06.02 Primary hypertension I10 Hypertension type: primary hypertension Type 1 diabetes mellitus with nephropathy E10.21 Diabetes mellitus complication detail: with nephropathy Diabetes mellitus complication status: with kidney complications Hospital discharge follow-up Z09 Time Spent (min) 31 Comment Time spent in reviewing the chart, test results, assessment, counseling and documentation.
--- OUTSIDE RECORDS SUMMARY | 2025-02-03 14:09 | XMS_ITS | Clinical Summary ---
Author Organization [facility] Address [address] [place] [address] Phone Care Team Providers Care Personal Shopper Name Role Phone Rebecca Encinas MD Primary Care Provider Allergies Active Allergy Reactions Criticality Noted Date [...] diabetes mellitus wit hout complication (CMS/HCC V24, CMS/LTAC, LOCATED [facility]IN [facility] V28) 06/25/2024 Depression, major, recurrent , moderate [...] Encounters Date Type Department Care Team Description 02/01/2025 Telephone Gastroenterology - [place] [address] [facility] [address] [place] [address] Charity Wall PA 11/16/2024 1:00 PM EDT Office Visit Adult Medicine [facility] [address] [place] [phone] Rebecca Encinas MD Type 1 diabetes mellitus without complication ([facility]/HCC V24, [facility]/HCC V28) (Primary Dx); Primary hypertension; Migraine with aura, with intractable migraine, so stated, with status migrainosus 11/11/2024 1:00 PM EDT Office Visit Gastroenterology - [place] [address] [facility] [address] [place] [phone] Charity Wall PA Gastroesophageal reflux disease, unspecified whether esophagitis present (Primary Dx); Nausea and vomiting, unspecified vomiting type; Acute superficial gastritis without hemorrhage; Hepatic adenoma from Last 3 Months Immunizations Name Administration Dates Next Due DTaP (Infanrix) 6wks to less than 7yo ,09/03/1999,05/04/1998,1997,1997 [id number] (Pentacel) 2mo to less than 5yo 09/03/1999,05/04/1998,03/01/1998,1997 [...] ENDOSCOPY 2007 PROCEDURE: UPPER GI ENDOSCOPY/EXAM; COMMENT: [facility] Medical History Medical History Date Comments Type 1 diabetes mellitus (CM S/HCC V24, CMS/HCC V28) DX:Type 1 diabetes mellitus (HCC); COMMENT: [facility] Endocrinology. Dr. Griffin. Dx age 8 [...] Info) Description 02/11/2025 8:15 AM EDT Appointment [facility] [address] [place] [address] 03/03/2025 8:30 AM EDT Office Visit Adult Medicine [facility] [address] [place] [phone] Rebecca Encinas MD [address] [place] [phone] 04/14/2025 2:30 PM EST Office Visit Orthopedic Surgery - [place] [address] [phone] Wei Sheppard, DPM [address] [phone] 05/16/2025 8:50 AM EST Office Visit Gastroenterology - [place] [address] [facility] 175 [facility] [address] [place] [phone] Chartiy Wall PA [address] [place] [address] Health Maintenance Due Date Last Done Comments Pneumococcal Vaccine: Pediatrics (0 to 5 Years) and At-Risk Patients (6 to 49 Years) (2 of 2 - PPSV23) 08/06/2007 06/11/2007 Diabetes: Annual Foot Exam 09/02/2007 Diabetes: Annual Retina Eye Exam 09/02/2007 DTaP,Tdap,and Td Vaccines (7 - Td or Tdap) 10/04/2018 10/04/2008, 02/16/2003, 09/03/1999, Additional history exists Social Influencers of Health Screening 05/05/2022 Diabetes: Annual Urine Albumin-Creatinine Ratio (uACR) 05/16/2022 Cervical Cancer Screening: Pap Smear 04/12/2023 04/12/2020, 04/12/2020, 04/12/2020 COVID-19 Vaccine ( season) 2025 04/30/2021, 04/09/2021 Influenza Vaccine (#1) 2025 , 03/11/2013, 05/04/2012, Additional history exists Diabetes: Blood Sugar Control Test (HGBA1C) 08/01/2025 02/01/2025, 06/25/2024, 04/05/2015 Diabetes: Annual GFR (Glomerular Filtration Rate) 02/01/2026 02/01/2025, 08/19/2024, 06/25/2024, Additional history exists Hypertension/CHF/CAD Annual BMP Blood Test 02/01/2026 02/01/2025, 08/19/2024, 06/25/2024, Additional history exists Cholesterol Screening (Lipid Panel) 02/01/2030 02/01/2025 HIB Vaccines Completed 09/03/1999, 07/1997, 03/01/1998, Additional [...] Procedure Name Priority Date/Time Associated Diagnosis Comments CBC WITH AUTO DIFFERENTIAL Routine 02/01/2025 12:49 PM EDT Migraine with aura, with intractable migraine, so stated, with status migrainosus COMPREHENSIVE METABOLIC PANEL Routine 02/01/2025 12:49 PM EDT Primary hypertension CBC AND DIFFERENTIAL Routine 02/01/2025 12:49 PM EDT Migraine with aura, with intractable migraine, so stated, with status migrainosus LIPID PANEL WITH REFLEX TO DIRECT LDL Routine 02/01/2025 12:49 PM EDT Type 1 diabetes mellitus without complication (CMS/HCC V24, CMS/LTAC, [facility] V28) HEMOGLOBIN A1C Routine 02/01/2025 12:49 PM EDT Type 1 diabetes mellitus without complication (CMS/LTAC, [facility] V24, CMS/LTAC, [facility] V28) EXTERNAL XRAY REPORT 12/01/2024 CHLAMYDIA TRACHOMATIS AND NEISSERIA GONORRHOEAE PCR Routine 07/27/2024 3:19 PM EST Screen for STD (sexually transmitted disease) HEPATITIS C SCREENING Routine 11/23/2020 HIV SCREENING Routine 11/23/2020 PAP SMEAR Routine 04/12/2020 from Last 3 Months or Most Recently Relevant to Health Maintenance Results * (ABNORMAL) Lipid panel with reflex to direct LDL (02/01/2025 12:49 PM EDT) Cholesterol 207(H) 0 - 200 mg/dL LAB CHEMISTRY METHOD 02/01/2025 6:51 PM EDT [facility] Triglycerides 44 0 - 150 mg/dL LAB CHEMISTRY METHOD 02/01/2025 6:51 PM EDT [facility] HDL 100 >=40 mg/dL LAB CHEMISTRY METHOD 02/01/2025 6:51 PM EDT [facility] LDL Calculated 98 0 - 100 mg/dL LAB CHEMISTRY METHOD 02/01/2025 6:51 PM EDT [facility] Comment:Estimated LDL Calcul ated using equation: Total cholesterol - HDL cholesterol - (Triglycerides/5) VLDL Cholesterol Miles 8.8 mg/dL LAB CHEMISTRY METHOD 02/01/2025 6:51 PM EDT [facility] Non HDL Chol. (LDL+VLDL) 107 <145 mg/dL LAB CHEMISTRY METHOD 02/01/2025 6:51 PM EDT [facility] Chol/HDL Ratio 2.1 0.0 - 4.4 LAB CHEMISTRY METHOD 02/01/2025 6:51 PM EDT [facility] Blood Venous blood specimen / Unknown Venipuncture / Unknown 02/01/2025 12:49 PM EDT 02/01/2025 12:49 PM EDT us Rebecca Encinas MD LAB BLOOD ORDERABLES Final Resul t [facility] [address] [place] [address], [place] [phone] * (ABNORMAL) CBC auto differential (02/01/2025 12:49 PM EDT) WBC 9.7 4.8 - 10.8 K/mcL LAB HEMETOLOGY METHOD 02/01/2025 3:00 PM EDT [facility] RBC 4.10 3.80 - 4.80 M/mcL LAB HEMETOLOGY METHOD 02/01/2025 3:00 PM EDT [facility] Hemoglobin 11.9 11.5 - 16.0 g/dL LAB HEMETOLOGY METHOD 02/01/2025 3:00 PM T [facility] Hematocrit 36.5 35.0 - 47.0 % LAB HEMETOLOGY [facility] MCV 89.5 79.0 - 98.0 FL LAB HEMETOLOGY METHOD 02/01/2025 3:00 PM [facility] MCH 29.2 27.0 - 32.0 pcg LAB HEMETOLOGY METHOD 02/01/2025 3:00 PM [facility] MCHC 32.6 32.0 - 37.0 g/dL LAB HEMETOLOGY METHOD 02/01/2025 3:00 PM [facility] RDW 11.7 11.0 - 15.0 % LAB HEMETOLOGY METHOD 02/01/2025 3:00 PM [facility] Platelets 465(H) 130 - 400 K/mcL LAB HEMETOLOGY METHOD 02/01/2025 3:00 PM [facility] MPV 9.2 7.0 - 11.0 FL LAB HEMETOLOGY METHOD 02/01/2025 3:00 PM [facility] NRBC 0.0 <1.0 % LAB HEMETOLOGY METHOD 02/01/2025 3:00 PM [facility] NRBC Absolute 0.00 <0.10 K/mcL LAB HEMETOLOGY METHOD 02/01/2025 3:00 PM [facility] Neutrophils Relative 64.9 % LAB HEMETOLOGY METHOD 02/01/2025 3:00 PM [facility] Lymphocytes Relative 27.3 % LAB HEMETOLOGY METHOD 02/01/2025 3:00 PM [facility] Monocytes Relative 4.6 % LAB HEMETOLOGY METHOD 02/01/2025 3:00 PM [facility] Eosinophils Relative 2.4 % LAB HEMETOLOGY METHOD 02/01/2025 3:00 PM [facility] Basophils Relative 0.5 % LAB HEMETOLOGY METHOD 02/01/2025 3:00 PM EDT [facility] Immature Granulocytes Relative 0.3 % LAB HEMETOLOGY METHOD 02/01/2025 3:00 PM EDT [facility] Neutrophils Absolute 6.30 1.50 - 7.00 K/mcL LAB HEMETOLOGY METHOD 02/01/2025 3:00 PM EDT [facility] Lymphocytes Absolute 2.65 1.00 - 5.00 K/mcL LAB HEMETOLOGY METHOD 02/01/2025 3:00 PM EDT [facility] Monocytes Absolute 0.45 0.20 - 1.00 K/mcL LAB HEMETOLOGY METHOD 02/01/2025 3:00 PM EDT [facility] Eosinophils Absolute 0.23 0.00 - 0.50 K/mcL LAB HEMETOLOGY METHOD 02/01/2025 3:00 PM EDT [facility] Basophils Absolute 0.05 0.00 - 0.20 K/mcL LAB HEMETOLOGY METHOD 02/01/2025 3:00 PM EDT [facility] Immature Granulocytes Absolute 0.03 0.00 - 0.03 K/mcL LAB HEMETOLOGY METHOD 02/01/2025 3:00 PM T [facility] Blood Venous blood specimen / Unknown Venipuncture / Unknown 02/01/2025 12:49 PM EDT 02/01/2025 12:49 PM EDT us Rebecca Encinas MD LAB BLOOD ORDERABLES Final Resul t [facility] [address] [place] [address], * (ABNORMAL) Hemoglobin A1c (02/01/2025 12:49 PM EDT) Hemoglobin A1C 8.5(H) <6.5 % LAB CHEMISTRY METHOD 02/01/2025 10:19 PM EDT [facility] Mean Bld Glu Estim. 197 mg/dL LAB CHEMISTRY METHOD 02/01/2025 10:19 PM T [facility] Blood Venous blood specimen / Unknown Venipuncture / Unknown 02/01/2025 12:49 PM EDT 02/01/2025 12:49 PM EDT us Rebecca Encinas MD LAB BLOOD ORDERABLES Final Resul t [facility] [address] [place] [address], [place] [phone] * (ABNORMAL) Comprehensive metabolic panel (02/01/2025 12:49 PM EDT) Sodium 137 133 - 145 mmol/L LAB CHEMISTRY METHOD 02/01/2025 6:46 PM [facility] Potassium 4.8 3.5 - 5.5 mmol/L LAB CHEMISTRY METHOD 02/01/2025 6:46 PM [facility] Chloride 107 96 - 110 mmol/L LAB CHEMISTRY METHOD 02/01/2025 6:46 PM [facility] CO2 22 21 - 32 mmol/L LAB CHEMISTRY METHOD 02/01/2025 6:46 PM [facility] Anion Gap 8 3 - 11 LAB CHEMISTRY METHOD 02/01/2025 6:46 PM [facility] Glucose 216(H) 70 - 100 mg/dL LAB CHEMISTRY METHOD 02/01/2025 6:46 PM [facility] BUN 30(H) 5 - 25 mg/dL LAB CHEMISTRY METHOD 02/01/2025 6:46 PM [facility] Creatinine 0.93 0.50 - 1.10 mg/dL LAB CHEMISTRY METHOD 02/01/2025 6:46 PM [facility] eGFR 87 >=60 mL/min/1. 73m2 LAB CHEMISTRY METHOD 02/01/2025 6:46 PM T [facility] Comment:Calculation based on the Chronic Kidney Disease Epidemiology Collaboration (CKD-EPI) equation refit without adjustment for race. BUN/Creatinine Ratio 32.3 LAB CHEMISTRY METHOD 02/01/2025 6:46 PM [facility] Calcium 8.8 8.5 - 10.5 mg/dL LAB CHEMISTRY METHOD 02/01/2025 6:46 PM [facility] AST (SGOT) 15 10 - 42 unit/L LAB CHEMISTRY METHOD 02/01/2025 6:46 PM [facility] ALT (SGPT) 14 10 - 60 unit/L LAB CHEMISTRY METHOD 02/01/2025 6:46 PM [facility] Alkaline Phosphatase 95 42 - 121 unit/L LAB CHEMISTRY METHOD 02/01/2025 6:46 PM [facility] Total Protein 6.4 6.0 - 8.0 g/dL LAB CHEMISTRY METHOD 02/01/2025 6:46 PM [facility] Albumin 3.1(L) 3.2 - 5.0 g/dL LAB CHEMISTRY METHOD 02/01/2025 6:46 PM [facility] Total Bilirubin 0.4 0.0 - 1.4 mg/dL LAB CHEMISTRY METHOD 02/01/2025 6:46 PM [facility] Blood Venous blood specimen / Unknown Venipuncture / Unknown 02/01/2025 12:49 PM EDT 02/01/2025 12:49 PM EDT us Rebecca Encinas MD LAB BLOOD ORDERABLES Final Resul t [facility] [address] [place] [address], [place] [phone] * External Xray Report (12/01/2024) Anatomical Region Laterality Modality Radiographic Jihan ging us Provider [facility] IMG XR PROCEDURES Final Result * Chlamydia trachomatis and Neisseria gonorrhoeae molecular study (07/27/2024 3:19 PM EST) [facility] Neisseria gonorrhoeae PCR Negative Negative LAB MOLECULAR DIAGNOSTICS METHOD 07/28/2024 9:36 AM EST [facility] Chlamydia trachomatis PCR Negative Negative LAB MOLECULAR DIAGNOSTICS METHOD 07/28/2024 9:36 AM EST [facility] Swab Cervix uteri structure / Unknown Non-blood Collection / Unknown 07/27/2024 3:19 PM EST 07/27/2024 3:19 PM EST Marbella Pro MD LAB MICROBIOLOGY - GENERAL ORDERABLES Final Result [facility] [address] [place] [address], * HIV Screening (11/23/2020) [facility] HIV Screening abstracted Historical Provider HEALTH MAINTENANCE Final Result * Hepatitis C Screening (11/23/2020) [facility] Hepatitis C Screening abstracted Historical Provider HEALTH MAINTENANCE Final Result * Pap smear (04/12/2020) 04/12/2020 Narrative HISTORICAL TESTING LAB RESULTING AGENCY - 04/14/2020 12:26 PM EST [id number] THINPREP PAP, IMAGED: NEGATIVE FOR SQUAMOUS INTRAEPITHELIAL [...] Most Recently Relevant to Health Maintenance Insurance [facility] [employer] Care Teams Personal Shopper Relationship Specialty Start Date End Date Rebecca Encinas MD [address] [place] [phone] PCP - General Internal Medicine 09/10/24
--- OUTSIDE RECORDS SUMMARY | 2025-02-03 14:09 | XMS_ITS | Encounter Summary ---
Author Organization [facility] Address [address] [place] [address] Care Team Providers Care Community Development Specialist Name Role Phone Rebecca Encinas MD Primary Care Provider [phone] Reason for Visit * Reason Onset Date Comments MRI 02/01/2025 Encounter Details Date Type Department Care Team ([facility] Contact Info) Description 02/01/2025 Telephone Gastroenterology - [place] 175 [facility] 175 [facility] [address] [place] [address] Charity Wall PA [address] [place] [phone] Social History Tobacco Use Types Packs/Day Years [...] as of this encounter Progress Notes * Adrienne Alcantara MA - 02/02/2025 11:00 AM EDT All the orders state this should be performed at [facility], unsure why it was scheduled elsewhere. Left voicemail for patient to call office, need to give scheduling number ([phone]) to call to reschedule MRI at [facility]. MELLY * Emily Scanlon MA - 02/01/2025 10:42 AM EDT Patient calling regarding MRI that was ordered by Monica, stated she just checked her MyChart and itappears it was scheduled for her at [place]. She has [facility] and can not go to [place]. Needs to be scheduled at [facility]. documented in this encounter Plan of Treatment Upcoming Encounters Date Type Department Care Team (Late st Contact Info) Description 02/11/2025 8:15 AM EDT Appointment [facility] [address] [place] [phone] 03/03/2025 8:30 AM EDT Office Visit Adult Medicine [address] [phone] Rebecca Encinas MD [address] [place] [address] 04/14/2025 2:30 PM EST Office Visit Orthopedic Surgery - [place] 250 175 [facility] 250 [place] [phone] Wei Sheppard DPM 175 [facility] [address] [place] [phone] 05/16/2025 8:50 AM EST Office Visit Gastroenterology - [place] 175 [facility] 175 [facility] [address] [place] [phone] Charity Wall PA [address] [place] [phone] documented as of this encounter Visit Diagnoses Not on filedocumented in this encounter Additional Health Concerns Assessment Noted Time PHQ-9 Depression Total Score: 11 025 2:47 PM EST documented as of this encounter Care Teams Community Development Specialist Relationship Specialty Start Date End Date Rebecca Encinas MD [address] [place] [address] PCP - General Internal Medicine 09/10/24 documented as of this encounter
== END 2025-02-03 13:36 | disposition home or self-care (01) ==
LOC: HO.HCS 12:52
PROVIDERS: PCP Internal Medicine
DX: R01.1 Cardiac murmur, unspecified (principal); R06.02 Shortness of breath; I10 Essential (primary) hypertension; E10.21 Type 1 diabetes mellitus with diabetic nephropathy; Z09 Encounter for follow-up examination after completed treatment for conditions other than malignant neoplasm
CPT/HCPCS: 99214

== ENCOUNTER → 2025-02-03 12:51 | Outpatient (BNVA) | payer OTHER, SELFPAY | PROVIDERS: PCP Internal Medicine | DX: Z09 Encounter for follow-up examination after completed treatment for conditions other than malignant neoplasm (principal); R06.02 Shortness of breath; R01.1 Cardiac murmur, unspecified; I10 Essential (primary) hypertension; E10.21 Type 1 diabetes mellitus with diabetic nephropathy | CPT/HCPCS: 99212 ==

== ENCOUNTER 2025-02-08 11:29 | Outpatient (AMB) | payer OTHER, SELFPAY ==
--- NOTE | 2025-02-08 11:36 | A.OFFVIS_ITS ---
VS Expanded 02/08/25 11:38 02/09/25 14:57 Height 5 ft 2 in 5 ft 2 in Weight 210 lb 5.136 oz 210 lb BMI 38.5 38.4 Intake Visit Reasons: T1DM Allergies Sulfa (Sulfonamide Antibiotics) (SULFA (SULFONAMIDE ANTIBIOTICS)) Allergy (Unknown, Verified 02/03/25 12:58) HIVES clindamycin Allergy (Verified 02/03/25 12:58) Hives fish derived (fish) Allergy (Verified 02/03/25 12:58) Anaphylaxis Nutrition Presentation Details: Pt presents for MNT for T1DM T1DM since 8 yo pt reports recent dx of chf 07/25/24. 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 Pt reports having family support with meal preparation. Pt reports having difficulties with foods, not digesting well, has gastritis, reports doing better with soups and soft foods. BS Monitoring Most Recent Diabetes Results: Creatinine, (0.5-1.4) 0.91 mg/dL 01/29/25 BUN, (9-16) 28 mg/dL H 01/29/25 Sodium, (135-145) 138 mmol/L 01/29/25 Potassium, (3.3-5.1) 4.8 mmol/L 01/29/25 Chloride, (96-108) 108 mmol/L 01/29/25 Carbon Dioxide, (22-29) 20 mmol/L L 01/29/25 Calcium, (8.4-10.2) 8.8 mg/dL 01/29/25 AST, (5-31) 15 U/L 01/29/25 ALT, (0-31) 11 U/L 01/29/25 Total Protein, (6.5-8.0) 6.5 g/dL 01/29/25 Albumin, (3.5-5.0) 3.4 g/dL L 01/29/25 BSP-Oonrjuq-Fm.Jeor Equation Height: 5 ft 2 in Weight: 210 lb Resting Metabolic Rate: 1642.00 Calculated Activity Level: Sedentary Calories Needed to Maintain Weight: 1970.40 Diagnosis Nutrition problem #1: excessive energy intake and food nutri know defi As related to (etiology) #1: diagnosis As evidenced by (sign/symptom) #1: knowledge deficit of diet PFSH Medical History Chest pain Type 1 diabetes Hypertension 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 Cocaine use Surgical History No pertinent past surgical history Family History Father Hypertension Mother Hypertension Diabetes Social History Household Members: Family Housing: House Do you presently have visiting nurse or other home services: No Alcohol intake: current Alcohol intake frequency: holidays/special occasions only Patient Tobacco Use Status: Never used Tobacco Substance Use Type: Marijuana service: No Assessment & Plan Assessment & Plan (1) Type 1 diabetes: Code(s): E10.9 - Type 1 diabetes mellitus without complications Category: Medical Qualifiers: Diabetes mellitus complication detail: with nephropathy Diabetes mellitus complication status: with kidney complications Qualified Code(s): 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 - Type 1 diabetes mellitus with diabetic nephropathy Plan: Wt: 95 kg Kg ( 02/24 ) Est kcal needs as per MSJ: 2000 (40% carb, 30% protein/fat) Est fluid needs as per 25-30 ml/d: 2800 Est prot per day as per 1 g/kg bw: 100 Recommend fiber intake : 8-10 g per day and gradually increase to 25-28 g per day for women and 35-38 g for men or as tolerated Recommend sodium intake per day : less than 2300 mg Educated patient on: ( R = reviewed V = verbalizes understanding N/R = needs review N/A = not applicable * Food sources of carbohydrate, adequate serving sizes and its role in various health conditions: R * Differences between complex carbohydrates a simple carbohydrates, role of fiber in diet: R V N/R * Lean protein sources of foods:soft protein foods: R * Differences between types of fats and role in diet (mono on saturated fat fatty acids, saturated fatty acids, trans fats): R * Food sources of sodium in salt and healthy modifications for heart health in kidney health: R V R/V * Vitamins and minerals: R V N/R * Healthy plate method concept: R V N/R * Physical activity: Benefits a precaution: R V N/R * Hypoglycemia protocol (rule of 15): R V N/R * Dietary prevention of Hyperglycemia: R Patient Instructions: Work on choosing low acid food- see list of recommended and not recommended foods (choose low fat food options, abstain from citrus foods ) Have 3 soft small meals (45-60 g carbs ) per day and choose high protein yogurt /glucerna shake /protein shake as snack in between meals - choose a soft protein containing food) example B: 2 cups of cheerios with 1 fairlife milk and 1/2 cup of applesauce , snack protein shake flavor of choice, lunch: tuna salad with 1 cup o fpasta and cooked zuchini (can be made into a soup) dinner 1 c potato, 1/2 c carrots , shreeded chicken soup and 1 cup of milk Coding Level of Care Code Nutr Indiv Intake (58623) Diagnoses Type 1 diabetes mellitus with nephropathy E10.21 Diabetes mellitus complication detail: with nephropathy Diabetes mellitus complication status: with kidney complications Time Spent (min) 30
[2025-02-08 11:38] VITALS: BMI 38.5
--- OUTSIDE RECORDS SUMMARY | 2025-02-08 13:59 | XMS_ITS | Clinical Summary ---
Author Organization [facility] Address [address] [place] [address] Phone Care Team Providers Care Inspector Cold Working Name Role Phone Rebecca Encinas MD Primary Care Provider [phone] Allergies Active Allergy Reactions Criticality Noted Date [...] day. 90 tablet 1 10/21/19 25 Active ondansetron ODT (ZOFRAN-ODT) 8 mg [...] HOURS. 9 tablet 1 01/27/20 25 Active esomeprazole (NexIUM) [address] capsule TAKE 1 CAPSULE BY MOUTH 1 TIME EACH DAY BEFORE BREAKFAST. DO NOT OPEN CAPSULE. 90 capsule 3 02/08/20 25 Active esomeprazole (NexIUM) [address] capsule Take 1 capsule (40 mg total) by mouth 1 (one) time each day before breakfast. Do not open capsule. 30 each 3 11/12/19 25 2024 Discontinued SUMAtriptan (IMITREX) 100 mg tablet Take 1 [...] Care Team Description 02/01/2025 Telephone Gastroenterology - [place] [address] [place] [phone] Charity Wall PA 11/16/2024 1:00 PM EDT Office Visit [facility] Medicine [address] [phone] Rebecca Encinas MD Type 1 diabetes mellitus without complication (CMS/HCC V24, CMS/HCC V28) (Primary Dx); Primary hypertension; Migraine with aura, with intractable migraine, so stated, with status migrainosus 11/11/2024 1:00 PM EDT Office Visit Gastroenterology [facility] [address] [place] [phone] Charity Wall PA Gastroesophageal reflux disease, unspecified whether esophagitis present (Primary Dx); Nausea and vomiting, unspecified vomiting type; Acute superficial gastritis without hemorrhage; Hepatic adenoma from Last 3 Months Immunizations Name Administration Dates Next Due DTaP (Infanrix) 6wks to less than 7yo ,09/03/1999,05/04/1998,1997,1997 [id number] (Pentacel) 2mo to less than 5yo 09/03/1999,05/04/1998,03/01/1998,1997 [...] ENDOSCOPY 2007 PROCEDURE: UPPER GI ENDOSCOPY/EXAM; COMMENT: [facility] Medical History Medical History Date Comments Type 1 diabetes mellitus (CM S/HCC V24, CMS/HCC V28) DX:Type 1 diabetes mellitus (HCC); COMMENT: [facility] Endocrinology. Dr. Griffin. Dx age 8 [...] Info) Description 02/11/2025 8:15 AM EDT Appointment [address] [phone] 03/03/2025 8:30 AM EDT Office Visit Adult Medicine [address] [phone] Rebecca Encinas MD [address] [place] [address] 04/14/2025 2:30 PM EST Office Visit Orthopedic Surgery [facility] [address] [phone] Wei Sheppard, DPM [address] [phone] 05/16/2025 8:50 AM EST Office Visit Gastroenterology - [place] 175 [facility] [address] [phone] Charity Wall PA 175 [facility] 200 [place] [address] Health Maintenance Due Date Last Done Comments [...] 1 diabetes mellitus without complication (CMS/HCC V24, CMS/[facility] V28) HEMOGLOBIN A1C Routine 02/01/2025 12:49 PM EDT Type 1 diabetes mellitus without complication (CMS/HCC V24, CMS/[facility] V28) EXTERNAL VASCULAR ULTRASOUND 01/29/2025 EXTERNAL VASCULAR ULTRASOUND 01/29/2025 EXTERNAL XRAY REPORT 01/29/2025 EXTERNAL XRAY REPORT 01/29/2025 EXTERNAL XRAY REPORT 12/01/2024 CHLAMYDIA TRACHOMATIS AND NEISSERIA GONORRHOEAE PCR Routine 07/27/2024 3:19 PM EST Screen for STD (sexually transmitted disease) HEPATITIS C SCREENING Routine 11/23/2020 HIV SCREENING Routine 11/23/2020 PAP SMEAR Routine 04/12/2020 from Last 3 Months or Most Recently Relevant to Health Maintenance Results * (ABNORMAL) Lipid panel with reflex to direct LDL (02/01/2025 12:49 PM EDT) Pathologist [facility] Cholesterol 207(H) 0 - 200 mg/dL LAB CHEMISTRY METHOD 02/01/2025 6:[address] [facility] Triglycerides 44 0 - 150 mg/dL LAB CHEMISTRY METHOD 02/01/2025 6:[address] [facility] HDL 100 >=40 mg/dL LAB CHEMISTRY METHOD 02/01/2025 6:[address] [facility] LDL Calculated 98 0 - 100 mg/dL LAB CHEMISTRY METHOD 02/01/2025 6:[address] [facility] Comment:Estimated LDL Calcul ated using equation: Total cholesterol - HDL cholesterol - (Triglycerides/5) VLDL Cholesterol Miles 8.8 mg/dL LAB CHEMISTRY METHOD 02/01/2025 6:[address] [facility] Non HDL Chol. (LDL+VLDL) 107 <145 mg/dL LAB CHEMISTRY METHOD 02/01/2025 6:[address] [facility] Chol/HDL Ratio 2.1 0.0 - 4.4 LAB CHEMISTRY METHOD 02/01/2025 6:[address] [facility] Blood Venous blood specimen / Unknown Venipuncture / Unknown 02/01/2025 12:49 PM EDT 02/01/2025 12:49 PM EDT us Rebecca Encinas MD LAB BLOOD ORDERABLES Final Resul t [facility] [address] [place] [address], * (ABNORMAL) CBC auto differential (02/01/2025 12:49 PM EDT) [facility] WBC 9.7 4.8 - 10.8 K/mcL LAB HEMETOLOGY METHOD 02/01/2025 3:[address] [facility] RBC 4.10 3.80 - 4.80 M/mcL LAB HEMETOLOGY METHOD 02/01/2025 3:00 PM [facility] Hemoglobin 11.9 11.5 - 16.0 g/dL LAB HEMETOLOGY METHOD 02/01/2025 3:00 PM [facility] Hematocrit 36.5 35.0 - 47.0 % LAB HEMETOLOGY METHOD 02/01/2025 3:00 PM [facility] MCV 89.5 79.0 - 98.0 FL LAB HEMETOLOGY METHOD 02/01/2025 3:00 PM [facility] MCH 29.2 27.0 - 32.0 pcg LAB HEMETOLOGY METHOD 02/01/2025 3:00 PM [facility] MCHC 32.6 32.0 - 37.0 g/dL LAB HEMETOLOGY METHOD 02/01/2025 3:00 PM [facility] RDW 11.7 11.0 - 15.0 % LAB HEMETOLOGY METHOD 02/01/2025 3:00 PM [facility] Platelets 465(H) 130 - 400 K/mcL LAB HEMETOLOGY METHOD 02/01/2025 3:00 PM [facility] MPV 9.2 7.0 - 11.0 FL LAB HEMETOLOGY METHOD 02/01/2025 3:00 PM [facility] NRBC 0.0 <1.0 % LAB HEMETOLOGY METHOD 02/01/2025 3:00 PM [facility] NRBC Absolute 0.00 <0.10 K/mcL LAB HEMETOLOGY METHOD 02/01/2025 3:00 PM [facility] Neutrophils Relative 64.9 % LAB HEMETOLOGY METHOD 02/01/2025 3:00 PM [facility] Lymphocytes Relative 27.3 % LAB HEMETOLOGY METHOD 02/01/2025 3:00 PM [facility] Monocytes Relative 4.6 % LAB HEMETOLOGY METHOD 02/01/2025 3:[address] [facility] Eosinophils Relative 2.4 % LAB HEMETOLOGY METHOD 02/01/2025 3:[address] [facility] Basophils Relative 0.5 % LAB HEMETOLOGY METHOD 02/01/2025 3:[address] [facility] Immature Granulocytes Relative 0.3 % LAB HEMETOLOGY METHOD 02/01/2025 3:[address] [facility] Neutrophils Absolute 6.30 1.50 - 7.00 K/mcL LAB HEMETOLOGY METHOD 02/01/2025 3:[address] [facility] Lymphocytes Absolute 2.65 1.00 - 5.00 K/mcL LAB HEMETOLOGY METHOD 02/01/2025 3:[address] [facility] Monocytes Absolute 0.45 0.20 - 1.00 K/mcL LAB HEMETOLOGY METHOD 02/01/2025 3:[address] [facility] Eosinophils Absolute 0.23 0.00 - 0.50 K/mcL LAB HEMETOLOGY METHOD 02/01/2025 3:[address] [facility] Basophils Absolute 0.05 0.00 - 0.20 K/mcL LAB HEMETOLOGY METHOD 02/01/2025 3:[address] [facility] Immature Granulocytes Absolute 0.03 0.00 - 0.03 K/mcL LAB HEMETOLOGY METHOD 02/01/2025 3:[address] [facility] Blood Venous blood specimen / Unknown Venipuncture / Unknown 02/01/2025 12:49 PM EDT 02/01/2025 12:49 PM EDT us Rebecca Encinas MD LAB BLOOD ORDERABLES Final Resul t [facility] [address] [place] [address], [place] [phone] * (ABNORMAL) Hemoglobin A1c (02/01/2025 12:49 PM EDT) [facility] Hemoglobin A1C 8.5(H) <6.5 % LAB CHEMISTRY METHOD 02/01/2025 10:[address] [facility] Mean Bld Glu Estim. 197 mg/dL LAB CHEMISTRY METHOD 02/01/2025 10:[address] [facility] Blood Venous blood specimen / Unknown Venipuncture / Unknown 02/01/2025 12:49 PM EDT 02/01/2025 12:49 PM EDT us Rebecca Encinas MD LAB BLOOD ORDERABLES Final Resul t [facility] [address] [place] [address], [place] [phone] * (ABNORMAL) Comprehensive metabolic panel (02/01/2025 12:49 PM EDT) [facility] Sodium 137 133 - 145 mmol/L LAB CHEMISTRY METHOD 02/01/2025 6:46 PM [facility] Potassium 4.8 3.5 - 5.5 mmol/L LAB CHEMISTRY METHOD 02/01/2025 6:46 PM [facility] Chloride 107 96 - 110 mmol/L LAB CHEMISTRY METHOD 02/01/2025 6:[address] [facility] CO2 22 21 - 32 mmol/L LAB CHEMISTRY METHOD 02/01/2025 6:[address] [facility] Anion Gap 8 3 - 11 LAB CHEMISTRY METHOD 02/01/2025 6:46 PM [facility] Glucose 216(H) 70 - 100 mg/dL LAB CHEMISTRY METHOD 02/01/2025 6:46 PM [facility] BUN 30(H) 5 - 25 mg/dL LAB CHEMISTRY METHOD 02/01/2025 6:46 PM [facility] Creatinine 0.93 0.50 - 1.10 mg/dL LAB CHEMISTRY METHOD 02/01/2025 6:46 PM [facility] eGFR 87 >=60 mL/min/1. 73m2 LAB CHEMISTRY METHOD 02/01/2025 6:46 PM [facility] Comment:Calculation based on the Chronic Kidney Disease Epidemiology Collaboration (CKD-EPI) equation refit without adjustment for race. BUN/Creatinine Ratio 32.3 LAB CHEMISTRY METHOD 02/01/2025 6:46 PM [facility] Calcium 8.8 8.5 - 10.5 mg/dL LAB CHEMISTRY METHOD 02/01/2025 6:46 PM [facility] AST (SGOT) 15 10 - 42 unit/L LAB CHEMISTRY METHOD 02/01/2025 6:46 PM [facility] ALT (SGPT) 14 10 - 60 unit/L LAB CHEMISTRY METHOD 02/01/2025 6:46 PM [facility] Alkaline Phosphatase 95 42 - 121 unit/L LAB CHEMISTRY METHOD 02/01/2025 6:46 PM [facility] Total Protein 6.4 6.0 - 8.0 g/dL LAB CHEMISTRY METHOD 02/01/2025 6:46 PM [facility] Albumin 3.1(L) 3.2 - 5.0 g/dL LAB CHEMISTRY METHOD 02/01/2025 6:46 PM [facility] Total Bilirubin 0.4 0.0 - 1.4 mg/dL LAB CHEMISTRY METHOD 02/01/2025 6:46 PM [facility] Blood Venous blood specimen / Unknown Venipuncture / Unknown 02/01/2025 12:49 PM EDT 02/01/2025 12:49 PM EDT us Rebecca Encinas MD LAB BLOOD ORDERABLES Final Resul t Performing Organization Address [facility]/ZIP Co de Phone Number [facility] [address] [place] [address], [place] [phone] * External Vascular Ultrasound (01/29/2025) Only the most recent of2 resultswithin the time period is included. Anatomical Region Laterality Modality Ultrasound Provider [facility] CV VASCULAR PROCEDURES F inal Result * External Xray Report (01/29/2025) Only the most recent of3 resultswithin the time period is included. Anatomical Region Laterality Modality Radiographic Jihan ging Provider [facility] IMG XR PROCEDURES Final Result * Chlamydia trachomatis and Neisseria gonorrhoeae molecular study (07/27/2024 3:19 PM EST) [facility] Neisseria gonorrhoeae PCR Negative Negative LAB MOLECULAR DIAGNOSTICS METHOD 07/28/2024 9:[address] [facility] Chlamydia trachomatis PCR Negative Negative LAB MOLECULAR DIAGNOSTICS METHOD 07/28/2024 9:[address] [facility] Swab Cervix uteri structure / Unknown Non-blood Collection / Unknown 07/27/2024 3:19 PM EST 07/27/2024 3:19 PM EST Marbella Pro MD LAB MICROBIOLOGY - GENERAL ORDERABLES Final Result Performing Organization Address City/[facility]/ZIP Co de Phone Number [facility] [address] [place] [address], [place] [phone] * HIV Screening (11/23/2020) Pathologist [facility] HIV Screening abstracted Historical Provider HEALTH MAINTENANCE Final Result * Hepatitis C Screening (11/23/2020) Pathologist [facility] Hepatitis C Screening abstracted Historical Provider HEALTH MAINTENANCE Final Result * Pap smear (04/12/2020) 04/12/2020 Narrative HISTORICAL TESTING LAB RESULTING AGENCY - 04/14/2020 12:26 PM EST [id number] THINPREP PAP, IMAGED: NEGATIVE FOR SQUAMOUS INTRAEPITHELIAL [...] Most Recently Relevant to Health Maintenance [place] [place] [address] PLAN Care Teams Inspector Cold Working Relationship Specialty Start Date End Date Rebecca Encinas MD [address] [place] [phone] PCP - General Internal Medicine 09/10/24
[2025-02-09 14:57] VITALS: BMI 38.4
== END 2025-02-09 08:21 | disposition home or self-care (01) ==
LOC: HO.ENCR 11:29
PROVIDERS: PCP Internal Medicine; Visit Provider Dietitian, Registered
DX: E10.21 Type 1 diabetes mellitus with diabetic nephropathy (principal)

== ENCOUNTER → 2025-02-08 11:29 | Outpatient (BNVA) | payer OTHER, SELFPAY | PROVIDERS: PCP Internal Medicine; Visit Provider Dietitian, Registered | DX: E10.21 Type 1 diabetes mellitus with diabetic nephropathy (principal); Z68.38 Body mass index [BMI] 38.0-38.9, adult | CPT/HCPCS: 97802 ==

== ENCOUNTER 2025-02-10 13:20 | Outpatient (AMB) | payer OTHER, SELFPAY ==
--- NOTE | 2025-02-10 13:35 | A.OFFVIS_ITS ---
Intake Intake Visit Reasons: 60 min Loss Prevention Consultant Required: No Accompanied by: Self / Same As Patient Allergies Sulfa (Sulfonamide Antibiotics) (SULFA (SULFONAMIDE ANTIBIOTICS)) Allergy (Unknown, Verified 02/03/25 12:58) HIVES clindamycin Allergy (Verified 02/03/25 12:58) Hives fish derived (fish) Allergy (Verified 02/03/25 12:58) Anaphylaxis HPI Comprehensive Diabetes Asmnt Most Recent Diabetes Results: Creatinine, (0.5-1.4) 0.91 mg/dL 01/29/25 BUN, (9-16) 28 mg/dL H 01/29/25 Sodium, (135-145) 138 mmol/L 01/29/25 Potassium, (3.3-5.1) 4.8 mmol/L 01/29/25 Chloride, (96-108) 108 mmol/L 01/29/25 Carbon Dioxide, (22-29) 20 mmol/L L 01/29/25 Calcium, (8.4-10.2) 8.8 mg/dL 01/29/25 AST, (5-31) 15 U/L 01/29/25 ALT, (0-31) 11 U/L 01/29/25 Total Protein, (6.5-8.0) 6.5 g/dL 01/29/25 Albumin, (3.5-5.0) 3.4 g/dL L 01/29/25 [facility] Medical History Chest pain Type 1 diabetes Hypertension 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 Cocaine use Surgical History No pertinent past surgical history Family History Father Hypertension Mother Hypertension Diabetes Social History Household Members: Family Housing: House Do you presently have visiting nurse or other home services: No Alcohol intake: current Alcohol intake frequency: holidays/special occasions only Patient Tobacco Use Status: Never used Tobacco Substance Use Type: Marijuana service: No Assessment & Plan Assessment & Plan (1) Type 1 diabetes: Code(s): E10.9 - Type 1 diabetes mellitus without complications Qualifiers: Diabetes mellitus complication detail: with nephropathy Diabetes mellitus complication status: with kidney complications Qualified Code(s): E10.21 - Type 1 diabetes mellitus with diabetic nephropathy Plan: Carb Counting Basic Pt reports she want T-Slim insulin pump Patient presents for appointment carbohydrate counting education. Reviewed the basic principles of carbohydrate counting.? Insulin to carb ratio, and insulin sensitivity factor calculated based on rule of 450 for insulin to carb ratio, and rule of 1500 for insulin sensitivity factor. Instructed patient on the importance of accurate calculation of the amount of carbs per meal for optimal glucose control Reviewed how to calculate mealtime bolus with insulin to carb ratio Reviewed how to calculate correction dose with insulin sensitivity factor Patient's TDD estimate 70 units Insulin to Carbohydrate ratio:1:5 Correction factor:1:20 Corrects to 120 mg/dL Diet Recall: Breakfast:06/03 bagel- 20 units- BG 217 mg/dL 4 units for bagel + 5 units for correction= 9 units Patient given healthy plate handout, for resource for carbohydrate counting Encourage patient to fill out food logs, estimating carbohydrates at meals, noting glucose number prior to meal, and how many units of insulin taken prior to meals Pt able to calculated needed insulin based on estimated carbohydrate content Instructed patient that there may need to be adjustment to insulin to carb ratio and sensitivity factor based on blood glucose trends. Portions of this note were created using voice recognition software, please excuse any words or phrases that may have been misinterpreted. Patient Instructions: Return food log in 2 weeks Down load t-connect and bolus calc kulwinder on smartphone Once food log is returned we will order insulin pump Coding Level of Care Code Est Pt Level 1 (94823) Diagnoses Type 1 diabetes mellitus with nephropathy E10.21 Diabetes mellitus complication detail: with nephropathy Diabetes mellitus complication status: with kidney complications
== END 2025-02-10 14:11 | disposition home or self-care (01) ==
LOC: HO.ENCR 13:20
PROVIDERS: PCP Internal Medicine; Visit Provider Registered Nurse Diabetes Educator
DX: E10.21 Type 1 diabetes mellitus with diabetic nephropathy (principal)

== ENCOUNTER → 2025-02-10 13:20 | Outpatient (BNVA) | payer OTHER, SELFPAY | PROVIDERS: PCP Internal Medicine; Visit Provider Registered Nurse Diabetes Educator | DX: E10.21 Type 1 diabetes mellitus with diabetic nephropathy (principal) | CPT/HCPCS: 99211 ==

== ENCOUNTER 2025-02-23 12:38 | Outpatient (REF) | payer OTHER, SELFPAY ==
--- OUTSIDE RECORDS SUMMARY | 2025-02-23 09:46 | XMS_ITS | Encounter Summary ---
Author Organization [facility] Address [address] [place] [address] Care Team Providers Care Director Of Strategic Programs Name Role Phone Rebecca Encinas MD Primary Care Provider [phone] Reason for Referral * Imaging (Routine) - Pending Review Specialty Diagnoses / Procedures Referred By Contac t Referred To Contact Radiology Diagnoses Gastroesophageal reflux disease, unspecified whether esophagitis present Nausea and vomiting, unspecified vomiting type Procedures MR Abdomen wo and w Contrast Charity Wall PA [address] [address] Phone: tel: fax: [address] [phone] Phone: tel: Referral ID Status Reason Start Date Expiration Date V isits Requested Visits Authorized [id number] Pending Review 08/11/2024 08/11/2025 1 1 Reason for Visit * Imaging (Routine) - Pending Review Specialty Diagnoses / Procedures Referred By Contac t Referred To Contact Radiology Diagnoses Gastroesophageal reflux disease, unspecified whether esophagitis present Nausea and vomiting, unspecified vomiting type Procedures MR Abdomen wo and w Contrast Charity Wall PA [address] [address] Phone: tel: fax: [address] [phone] Phone: tel: Referral ID Status Reason Start Date Expiration Date V isits Requested Visits Authorized [id number] Pending Review 08/11/2024 08/11/2025 1 1 Encounter Details Date Type Department Care Team (Latest Contact Info) Description 02/23/2025 9:46 AM EDT Hospital Encounter [facility] MRI [address] [place] [phone] Gastroesophageal reflux disease, unspecified whether esophagitis present; Nausea and vomiting, unspecified vomiting type Social History Tobacco Use Types Packs/Day Years [...] AM EST documented as of this encounter Plan of Treatment Upcoming Encounters Date Type Department Care Team (Late st Contact Info) Description 03/03/2025 8:30 AM EDT Office Visit Adult Medicine [address] [phone] Rebecca Encinas MD [address] [place] [address] 04/14/2025 2:30 PM EST Office Visit Orthopedic Surgery - [place] 250 175 [facility] [address] [place] [phone] Wei Sheppard DPM 175 [facility] [address] [place] [phone] 05/16/2025 8:50 AM EST Office Visit Gastroenterology - [place] 175 [facility] [address] [phone] Charity Wall PA 175 [facility] [address] [place] [address] Pending Results Name Type Priority Associated Diagnoses Date /Time MR Abdomen wo and w Contrast Imaging Routine Gastroesophageal reflux disease, unspecified whether esophagitis present Nausea and vomiting, unspecified vomiting type 02/23/2025 11:00 AM EDT Scheduled Orders Name Type Priority Associated Diagnoses Orde r Schedule MR Abdomen wo and w Contrast Imaging Routine Gastroesophageal reflux disease, unspecified whether esophagitis present Nausea and vomiting, unspecified vomiting type Once for 1 Occurrences starting 02/23/2025 until 02/23/2025 documented as of this encounter Visit Diagnoses Diagnosis Gastroesophageal reflux disease, unspecified whether esophagitis present Nausea and vomiting, unspecified vomiting type documented in this encounter Administered Medications Inactive Administered Medications - up to 3 most recent administrations Medication Order MAR Action Action Date Dose Rate Site gadoterate meglumine (CLARISCAN, DOTAREM) injection 20 mL 20 mL, intravenous, Once in imaging, Starting on Fri02/23/25 at 1028, For 1 dose Given 02/23/2025 11:00 AM EDT 20 mL documented in this encounter Orders Medications Ordered That Charanjit ht Not Have Been Administered Count Last Ordered Date First Ordered Date gadoterate meglumine (TANISHA CAN, DOTAREM) injection 20 mL 1 02/23/2025 documented in this encounter Additional Health Concerns Assessment Noted Time PHQ-9 Depression Total Score: 11 025 2:47 PM EST documented as of this encounter Care Teams Director Of Strategic Programs Relationship Specialty Start Date End Date Rebecca Encinas MD [address] [place] [address] PCP - General Internal Medicine 09/10/24 documented as of this encounter
[2025-02-23 13:46] LABS: Hemoglobin A1C 229.2476 umol/L; Total Hemoglobin (HGBA1C) 3310.8591 umol/L
[2025-02-23 14:31] LABS: Alanine Aminotransferase 9 U/L (0-31); Albumin Level 3.4 g/dL (3.5-5.0); Alkaline Phosphatase 93 U/L (39-117); Anion Gap 11 (12-20); Aspartate Amino Transferase 14 U/L (5-31); Blood Urea Nitrogen 26 mg/dL (9-16); Calcium 9.5 mg/dL (8.4-10.2); Carbon Dioxide 24 mmol/L (22-29); Chloride 107 mmol/L (96-108); Cholesterol 233 mg/dL (<200); Estimated Glomerular Filt Rate > 60; HDL Cholesterol 91 mg/dL (>40); Potassium 5.0 mmol/L (3.3-5.1); Sodium 137 mmol/L (135-145); Total Protein 6.8 g/dL (6.5-8.0); Triglycerides 62 mg/dL (<150)
[2025-02-23 14:33] LABS: Free T4 (Free Thyroxine) 0.79 ng/dL (0.71-1.85); Thyroid Stimulating Hormone 2.01 uIU/mL (0.32-4.0)
--- OUTSIDE RECORDS SUMMARY | 2025-02-23 15:09 | XMS_ITS | Clinical Summary ---
Author Organization [facility] Address [address] [place] [address] Phone Care Team Providers Care Meal Miller Name Role Phone Rebecca Encinas MD Primary Care Provider [phone] Allergies Active Allergy Reactions Criticality Noted Date [...] year. She agreed. Type 1 diabetes mellitus without complication Depression, major, recurrent , moderate (CMS/HCC V24, [...] Encounters Date Type Department Care Team Description 02/23/2025 9:46 AM EDT Hospital Encounter [facility] MRI [address] [place] [address] Gastroesophageal reflux disease, unspecified whether esophagitis present; Nausea and vomiting, unspecified vomiting type 02/17/2025 Telephone Adult Medicine [facility] [address] [place] [phone] Rebecca Encinas MD 02/01/2025 Telephone Gastroenterology [facility] 175 [facility] 175 [facility] [address] [place] [address] Charity Wall PA from Last 3 Months Immunizations Name Administration Dates Next Due DTaP (Infanrix) 6wks to less than 7yo ,09/03/1999,05/04/1998,1997,1997 [id number] (Pentacel) 2mo to less than 5yo 09/03/1999,05/04/1998,03/01/1998,1997 [...] ENDOSCOPY 2007 PROCEDURE: UPPER GI ENDOSCOPY/EXAM; COMMENT: [facility] Medical History Medical History Date Comments Type 1 diabetes mellitus (CM S/HCC V24, CMS/[facility] V28) DX:Type 1 diabetes mellitus (HCC); COMMENT: [...] - - Weight 94.8 kg (209 lb) 02/23/2025 10:27 AM EDT Height 157.5 cm (5' 2 ) 11/16/2024 1:06 PM EDT Body Mass Index 38.23 11/16/2024 1:06 PM EDT Plan of Treatment Upcoming Encounters Date Type Department Care Team (Late st Contact Info) Description 03/03/2025 8:30 AM EDT Office Visit Adult Medicine [facility] [address] [place], [place] [phone] Rebecca Encinas MD [address] [place] [address] 04/14/2025 2:30 PM EST Office Visit Orthopedic Surgery - [place] [address] [phone] Wei Sheppard DPDeshaun [address] [phone] 05/16/2025 8:50 AM EST Office Visit Gastroenterology - [place] 175 [facility] [address] [phone] Charity Wall PA 175 [facility] 200 [place] [address] Health Maintenance Due Date Last Done Comments Pneumococcal Vaccine: Pediatrics (0 to 5 Years) and At-Risk Patients (6 to 49 Years) (2 of 2 - PPSV23) 08/06/2007 06/11/2007 Diabetes: Annual Foot Exam 09/02/2007 DTaP,Tdap,and Td Vaccines (7 - [...] 02/01/2026 02/01/2025, 08/19/2024, 06/25/2024, Additional history exists Diabetes: Annual Retina Eye Exam 02/21/2026 02/21/2025 Cholesterol Screening (Lipid Panel) 02/01/2030 02/01/2025 RSV Immunization Adult Patients (1 - 1-dose 75+ series) 2072 HIB Vaccines Completed 09/03/1999, 07/1997, 03/01/1998, Additional [...] Name Priority Date/Time Associated Diagnosis Comments EXTERNAL DIABETIC RETINA EYE EXAM 02/21/2025 CBC WITH AUTO DIFFERENTIAL Routine 02/01/2025 12:49 [...] 1 diabetes mellitus without complication (CMS/HCC V24, CMS/[facility] V28) HEMOGLOBIN A1C Routine 02/01/2025 12:49 PM EDT Type 1 diabetes mellitus without complication (CMS/HCC V24, CMS/[facility] V28) EXTERNAL VASCULAR ULTRASOUND 01/29/2025 EXTERNAL VASCULAR [...] Relevant to Health Maintenance Results * External Diabetic Retina Eye Exam Report (02/21/2025) Anatomical Region Laterality Modality Ultrasound us Provider [employer] [facility] [place] PROCEDURES Final Result * (ABNORMAL) Lipid panel with reflex to direct LDL (02/01/2025 12:49 PM EDT) Cholesterol 207(H) 0 - 200 mg/dL LAB CHEMISTRY METHOD 02/01/2025 6:51 PM EDT [facility] Triglycerides 44 0 - 150 mg/dL LAB CHEMISTRY METHOD 02/01/2025 6:51 PM EDT [facility] HDL 100 >=40 mg/dL LAB CHEMISTRY METHOD 02/01/2025 6:51 PM EDT [facility] LDL Calculated 98 0 - 100 mg/dL LAB CHEMISTRY METHOD 02/01/2025 6:51 PM EDT [facility] Comment:Estimated LDL Calcul ated using equation: Total cholesterol - HDL cholesterol - (Triglycerides/5) VLDL Cholesterol Miles 8.8 mg/dL LAB CHEMISTRY METHOD 02/01/2025 6:51 PM EDT [facility] Non HDL Chol. (LDL+VLDL) 107 <145 mg/dL LAB CHEMISTRY METHOD 02/01/2025 6:51 PM EDT [facility] Chol/HDL Ratio 2.1 0.0 - 4.4 LAB CHEMISTRY METHOD 02/01/2025 6:51 PM EDT [facility] Blood Venous blood specimen / Unknown Venipuncture / Unknown 02/01/2025 12:49 PM EDT 02/01/2025 12:49 PM EDT us Rebecca Encinas MD LAB BLOOD ORDERABLES Final Resul t [facility] [address] [place] [address], * (ABNORMAL) CBC auto differential (02/01/2025 12:49 PM EDT) WBC 9.7 4.8 - 10.8 K/mcL LAB HEMETOLOGY METHOD 02/01/2025 3:00 PM EDT [facility] RBC 4.10 3.80 - 4.80 M/mcL LAB HEMETOLOGY METHOD 02/01/2025 3:00 PM EDT [facility] Hemoglobin 11.9 11.5 - 16.0 g/dL LAB HEMETOLOGY METHOD 02/01/2025 3:00 PM [facility] Hematocrit 36.5 35.0 - 47.0 % LAB HEMETOLOGY METHOD 02/01/2025 3:00 PM [facility] MCV 89.5 79.0 - 98.0 FL LAB HEMETOLOGY METHOD 02/01/2025 3:00 PM [facility] MCH 29.2 27.0 - 32.0 pcg LAB HEMETOLOGY METHOD 02/01/2025 3:00 PM [facility] MCHC 32.6 32.0 - 37.0 g/dL LAB HEMETOLOGY METHOD 02/01/2025 3:00 PM [facility] RDW 11.7 11.0 - 15.0 % LAB HEMETOLOGY METHOD 02/01/2025 3:00 PM [facility] Platelets 465(H) 130 - 400 K/mcL LAB HEMETOLOGY METHOD 02/01/2025 3:00 PM [facility] MPV 9.2 7.0 - 11.0 FL LAB HEMETOLOGY METHOD 02/01/2025 3:00 PM [facility] NRBC 0.0 <1.0 % LAB HEMETOLOGY METHOD 02/01/2025 3:00 PM [facility] NRBC Absolute 0.00 <0.10 K/mcL LAB HEMETOLOGY METHOD 02/01/2025 3:00 PM [facility] Neutrophils Relative 64.9 % LAB HEMETOLOGY METHOD 02/01/2025 3:00 PM [facility] Lymphocytes Relative 27.3 % LAB HEMETOLOGY METHOD 02/01/2025 3:00 PM [facility] Monocytes Relative 4.6 % LAB HEMETOLOGY METHOD 02/01/2025 3:00 PM [facility] Eosinophils Relative 2.4 % LAB HEMETOLOGY METHOD 02/01/2025 3:00 PM EDT [facility] Basophils Relative 0.5 % LAB HEMETOLOGY METHOD 02/01/2025 3:00 PM EDT [facility] Immature Granulocytes Relative 0.3 % LAB HEMETOLOGY METHOD 02/01/2025 3:00 PM EDT [facility] Neutrophils Absolute 6.30 1.50 - 7.00 K/mcL LAB HEMETOLOGY METHOD 02/01/2025 3:00 PM EDT [facility] Lymphocytes Absolute 2.65 1.00 - 5.00 K/mcL LAB HEMETOLOGY METHOD 02/01/2025 3:00 PM EDT [facility] Monocytes Absolute 0.45 0.20 - 1.00 K/mcL LAB HEMETOLOGY METHOD 02/01/2025 3:00 PM EDT [facility] Eosinophils Absolute 0.23 0.00 - 0.50 K/mcL LAB HEMETOLOGY METHOD 02/01/2025 3:00 PM EDT [facility] Basophils Absolute 0.05 0.00 - 0.20 K/mcL LAB HEMETOLOGY METHOD 02/01/2025 3:00 PM EDT [facility] Immature Granulocytes Absolute 0.03 0.00 - 0.03 K/mcL LAB HEMETOLOGY METHOD 02/01/2025 3:00 PM EDT [facility] Blood Venous blood specimen / Unknown Venipuncture / Unknown 02/01/2025 12:49 PM EDT 02/01/2025 12:49 PM EDT us Rebecca Encinas MD LAB BLOOD ORDERABLES Final Resul t [facility] [address] [place] [address], * (ABNORMAL) Hemoglobin A1c (02/01/2025 12:49 PM EDT) [facility] Hemoglobin A1C 8.5(H) <6.5 % LAB CHEMISTRY METHOD 02/01/2025 10:19 PM EDT [facility] Mean Bld Glu Estim. 197 mg/dL LAB CHEMISTRY METHOD 02/01/2025 10:19 PM EDT [facility] Blood Venous blood specimen / Unknown Venipuncture / Unknown 02/01/2025 12:49 PM EDT 02/01/2025 12:49 PM EDT us Rebecca Encinas MD LAB BLOOD ORDERABLES Final Resul t [facility] [address] [place] [address], [place] [phone] * (ABNORMAL) Comprehensive metabolic panel (02/01/2025 12:49 PM EDT) [facility] Sodium 137 133 - 145 mmol/L LAB CHEMISTRY METHOD 02/01/2025 6:46 PM [facility] Potassium 4.8 3.5 - 5.5 mmol/L LAB CHEMISTRY METHOD 02/01/2025 6:46 PM [facility] Chloride 107 96 - 110 mmol/L LAB CHEMISTRY METHOD 02/01/2025 6:46 PM [facility] CO2 22 21 - 32 mmol/L LAB CHEMISTRY METHOD 02/01/2025 6:46 PM [facility] Anion Gap 8 3 - 11 LAB CHEMISTRY METHOD 02/01/2025 6:46 PM [facility] Glucose 216(H) 70 - 100 mg/dL LAB CHEMISTRY METHOD 02/01/2025 6:46 PM [facility] BUN 30(H) 5 - 25 mg/dL LAB CHEMISTRY METHOD 02/01/2025 6:46 PM [facility] Creatinine 0.93 0.50 - 1.10 mg/dL LAB CHEMISTRY METHOD 02/01/2025 6:46 PM T [facility] eGFR 87 >=60 mL/min/1. 73m2 LAB CHEMISTRY METHOD 02/01/2025 6:46 PM [facility] Comment:Calculation based on the Chronic Kidney Disease Epidemiology Collaboration (CKD-EPI) equation refit without adjustment for race. BUN/Creatinine Ratio 32.3 LAB CHEMISTRY METHOD 02/01/2025 6:46 PM [facility] Calcium 8.8 8.5 - 10.5 mg/dL LAB CHEMISTRY METHOD 02/01/2025 6:46 PM [facility] AST (SGOT) 15 10 - 42 unit/L LAB CHEMISTRY METHOD 02/01/2025 6:46 PM [facility] ALT (SGPT) 14 10 - 60 unit/L LAB CHEMISTRY METHOD 02/01/2025 6:46 PM [facility] Alkaline Phosphatase 95 42 - 121 unit/L LAB CHEMISTRY METHOD 02/01/2025 6:46 PM [facility] Total Protein 6.4 6.0 - 8.0 g/dL LAB CHEMISTRY METHOD 02/01/2025 6:46 PM [facility] Albumin 3.1(L) 3.2 - 5.0 g/dL LAB CHEMISTRY METHOD 02/01/2025 6:46 PM [facility] Total Bilirubin 0.4 0.0 - 1.4 mg/dL LAB CHEMISTRY METHOD 02/01/2025 6:46 PM [facility] Blood Venous blood specimen / Unknown Venipuncture / Unknown 02/01/2025 12:49 PM EDT 02/01/2025 12:49 PM EDT us Rebecca Encinas MD LAB BLOOD ORDERABLES Final Resul t [facility] [address] [place] [address], [place] [phone] * External Vascular Ultrasound (01/29/2025) Only the [...] gonorrhoeae molecular study (07/27/2024 3:19 PM EST) [facility] Neisseria gonorrhoeae PCR Negative Negative LAB MOLECULAR DIAGNOSTICS METHOD 07/28/2024 9:36 AM EST [facility] Chlamydia trachomatis PCR Negative Negative LAB MOLECULAR DIAGNOSTICS METHOD 07/28/2024 9:36 AM EST [facility] Swab Cervix uteri structure / Unknown Non-blood Collection / Unknown 07/27/2024 3:19 PM EST 07/27/2024 3:19 PM EST Marbella Pro MD LAB MICROBIOLOGY - GENERAL ORDERABLES Final Result [facility] [address] [place] [address], * HIV Screening (11/23/2020) Pathologist [facility] HIV Screening abstracted Historical Provider HEALTH MAINTENANCE Final Result * Hepatitis C Screening (11/23/2020) [facility] Hepatitis C Screening abstracted Historical Provider HEALTH MAINTENANCE Final Result * Pap smear (04/12/2020) 04/12/2020 Narrative HISTORICAL TESTING LAB RESULTING AGENCY - 04/14/2020 12:26 PM EST [id number] THINPREP PAP, IMAGED: NEGATIVE FOR SQUAMOUS INTRAEPITHELIAL [...] Most Recently Relevant to Health Maintenance Insurance [facility] [employer] Care Teams Meal Miller Relationship Specialty Start Date End Date Rebecca Encinas MD [address] [place] [phone] PCP - General Internal Medicine 09/10/24
[2025-02-23 15:53] LABS: Protein/Creatinine Ratio, Ur 8.60 (<0.2); Total Protein Urine Random 714 mg/dL (<12)
== END 2025-02-23 12:39 | disposition home or self-care (01) ==
LOC: HO.LAB 12:38
PROVIDERS: PCP Internal Medicine; Referring Provider Internal Medicine Endocrinology, Diabetes & Metabolism; Visit Provider Internal Medicine Nephrology
DX: E10.21 Type 1 diabetes mellitus with diabetic nephropathy (principal); I10 Essential (primary) hypertension; R07.9 Chest pain, unspecified; R06.02 Shortness of breath; E10.9 Type 1 diabetes mellitus without complications
CPT/HCPCS: 36415; 80048; 80061; 80076; 82570; 83036; 84156; 84439; 84443

== ENCOUNTER → 2025-03-03 08:57 | Outpatient (REF) | payer OTHER, SELFPAY ==
--- NOTE | 2025-03-03 09:00 | CA_ITS ---
Transthoracic Echocardiogram Patient (Last, First, Middle): Wendy Otoole, Gender: F Date of : 1995 Age: 29 Procedure Date: 03/03/2025 Procedure Type: Transthoracic Echocardiogram Location: OP Height: 157.48 cm Weight: 95.26 kg BSA: 1.95 m2 Heart Rate: bpm BP: 134 / 90 mmHg Field Reporter: TO Referring MD: Alexandr Edmondson NP Symptoms: R01.1 - Cardiac murmur, unspecified Study Quality: Fair/No IV access ECG Rhythm: Sinus Conclusions: - The left ventricular systolic function is normal. The visually estimated ejection fraction is between 60-65%. - There is mild aortic valve stenosis. Findings Left Ventricle Normal left ventricular cavity size. There is normal left ventricular wall thickness. The left ventricular systolic function is normal. The visually estimated ejection fraction is between 60-65%. There is no evidence of regional wall motion abnormalities. Diastolic function is normal for age. Normal left ventricular filling pressures. Right Ventricle Normal right ventricular cavity size and systolic function. Atria Both atria are normal in size. Aortic Valve There is mild aortic valve stenosis. There is no aortic valve regurgitation. Probably trileaflet aortic valve with mild calcification and less likely bicuspid. Mitral Valve The mitral valve appears normal. There is no mitral valve regurgitation. There is no mitral valve stenosis. Pulmonic Valve There is trace pulmonic valve regurgitation. Tricuspid Valve There is trace tricuspid valve regurgitation. There is no evidence of pulmonary hypertension. Great Vessels The asc aorta and aortic arch are normal in size. Venous The inferior vena cava is normal in size and collapses greater than 50% with inspiration. Pericardium/Pleural There is no evidence of pericardial effusion. Prior Study Comparison No significant change compared to prior study dated: 09/22/2024. Measurements 2D Linear Measurements IVSd: 0.92 0.6-0.9/0.6-1.0 cm LVIDd: 4.49 3.9-5.3/4.2-5.9 cm LVIDd Index: 2.30 2.4-3.2/2.2-3.1 cm/m2 LVIDs: 2.91 2.0-3.6 cm LVPWd: 0.92 0.7-1.1 cm LA Diam: 3.30 2.7-3.8/3.0-4.0 cm LAIDs Index: 1.69 1.5-2.3 cm/m2 LV Mass: 169.39 67-162/88-224 g LV Mass Index: 86.87 43-95/49-115 g/m2 LVOT Diam: 2.00 3.0+(-)1.3 cm 2D Systolic Function EF 4C: 52.90 >55% Mitral Valve MV Pk E: 0.95 MV PK A: 0.92 MV Decel Time: 126.00 E/A: 1.00 E'Lateral: 8.70 E'Medial: 6.64 E/E' Med: 14.30 E/E' Lat: 10.90 PHT: 37.00 MVA PHT: 5.95 Decel Cuming: 7.57 Aortic Valve AoV Pk Ryan: 2.51 AoV Mn Ryan: 1.78 AoV VTI: 0.48 AoV Pk Grad: 25.00 Aov Mn Grad: 14.00 ELIAS Cont.VTI: 1.72 LVOT LVOT Pk Ryan: 1.31 LVOT Mn Ryan: 0.90 LVOT VTI: 0.26 LVOT Pk Grad: 7.00 LVOT Mn Grad: 4.00 LVOT Diam: 2.00 LVOT Area: 3.14 Diastolic Function MV Pk E: 0.95 MV Pk A: 0.92 E/A: 1.00 E'Medial: 6.64 E/E' Med: 14.30 E' Laterial: 8.70 E/E' Lat: 10.90 Right Ventricle TAPSE (mm): 21.20 TVS' Ryan: 15.90 Tricuspid Valve TR Pk Ryan: 1.59 TR Pk Grad: 10.00 RA Press: 3.00 RVSP: 13.00 Great Vessels Aorta Sinus of Valsalva: 2.77 2.0-3.5 cm Ao Asc: 3.20 2.1-3.4 cm Ao Arch: 2.70 Updated in Other Vendor System with Status of Final Nirmal Gunderson MD electronically signed on 03/05/2025 2:34:14 PM with status of Final
--- OUTSIDE RECORDS SUMMARY | 2025-03-03 09:38 | XMS_ITS | Clinical Summary ---
Author Organization [facility] Address [address] [place] [address] Phone Care Team Providers Care Fleet Salesperson Name Role Phone Rebecca Encinas MD Primary Care Provider [phone] Allergies Active Allergy Reactions Criticality Noted Date [...] aspart , generic only 15 mL 11 025 Active acetaminophen (TYLENOL) 500 mg tablet TAKE 1 BY MOUTH EVERY 6 HOURS NEEDED FOR PAIN Active furosemide (LASIX) 20 mg tablet Take 1 tablet (20 mg total) by mouth 1 (one) time each day. 025 Active losartan (COZAAR) 100 mg tablet Take 1 tablet (100 mg total) by mouth 1 (one) time each day. 025 Active amLODIPine (NORVASC) 10 mg tablet Take 1 tablet (10 mg total) by mouth 1 (one) time each day. 90 tablet 1 025 Active ondansetron ODT (ZOFRAN-ODT) 8 mg disintegrating tablet DISSOLVE 1 TABLET ON TOP OF TONGUE EVERY 8 HOURS NEEDED FOR NAUSEA OR VOMITING FOR UP TO 7 DAYS 20 tablet 025 Active SUMAtriptan (IMITREX) 100 mg tablet TAKE 1 TABLET BY MOUTH 1 TIME IF NEEDED FOR MIGRAINE. MAY REPEAT DOSE ONCE IN 2 HOURS IF NO RELIEF. DO NOT EXCEED 2 DOSES IN 24 HOURS. 9 tablet 1 025 Active esomeprazole (NexIUM) [address] capsule TAKE 1 CAPSULE BY MOUTH 1 TIME EACH DAY BEFORE BREAKFAST. DO NOT OPEN CAPSULE. 90 capsule 3 025 Active albuterol HFA (PROAIR HFA ; PROVENTIL HFA ; VENTOLIN HFA) 90 mcg/actuation inhalerIndication s:Mild intermittent asthma without complication Inhale 2 puffs by mouth every 4 (four) hours if needed for wheezing. 6.7 g 1 025 Active albuterol HFA (PROAIR HFA ; PROVENTIL HFA ; VENTOLIN HFA) 90 mcg/actuation inhalerIndication s:Mild intermittent asthma without complication Inhale 2 puffs by mouth every 4 (four) hours if needed for wheezing. 6.7 g 1 025 2024 Discontinued(R eorder) esomeprazole (NexIUM) [address] capsule Take 1 capsule (40 mg total) by mouth 1 (one) time each day before breakfast. Do not open capsule. 30 each 3 025 2024 Discontinued Active Problems Problem Noted Date Diagnosed Date Cocaine use disorder in remission 10/20/2024 Mild intermittent asthma without complication Chronic diastolic heart failure (CMS/[facility] V24, CM S/[facility] V28) 10/20/2024 Menorrhagia with irregular cycle 07/12/2024 [...] She agreed. Type 1 diabetes mellitus wit h ophthalmic complication ([facility] V24, [facility] V28) 06/25/2024 Depression, major, recurrent , moderate ([facility] V24, [facility] V28) 05/11/2024 Obesity 05/11/2024 Tobacco use disorder [...] Encounters Date Type Department Care Team Description 02/28/2025 Telephone [facility] [address] [place] [phone] Rebecca Encinas MD 02/23/2025 9:46 AM EDT - 02/23/2025 11:59 PM EDT Hospital Encounter [facility] MRI [address] [place] [phone] Gastroesophageal reflux disease, unspecified whether esophagitis present; Nausea and vomiting, unspecified vomiting type Discharge Disposition: Home or Self Care 02/17/2025 Telephone [facility] [address] [place] [phone] Rebecca Encinas MD 02/01/2025 Telephone Gastroenterology [facility] 175 [facility] 175 [facility] [address] [place] [phone] Charity Wall PA from Last 3 Months Immunizations Immunization Administration Dates Next Due DTaP (Infanrix) 6wks to less than 7yo ,09/03/1999,05/04/1998,1997,1997 [id number] (Pentacel) 2mo to less than 5yo 09/03/1999,05/04/1998,03/01/1998,1997 [...] ENDOSCOPY 2007 PROCEDURE: UPPER GI ENDOSCOPY/EXAM; COMMENT: [facility] Medical History Medical History Date Comments Type 1 diabetes mellitus (CM S/HCC V24, CMS/HCC V28) DX:Type 1 diabetes mellitus (HCC); COMMENT: [facility] Endocrinology. Dr. Griffin. Dx age 8 [...] Care Team (Late st Contact Info) Description 03/10/2025 9:00 AM EDT Office Visit Adult Medicine [address] [phone] Rebecca Encinas MD [address] [place] [address] 04/14/2025 2:30 PM EST Office Visit [facility]opedic Surgery - [facility] [address] [phone] Wei Sheppard, DPM [address] [phone] 05/16/2025 8:50 AM EST Office Visit Gastroenterology [facility] 175 [facility] [address] [phone] Charity Wall PA 175 [facility] [address] [place] [address] Health Maintenance Due Date Last Done Comments Pneumococcal Vaccine: Pediatrics (0 to 5 Years) and At-Risk Patients (6 to 49 Years) (2 of 2 - PPSV23, PCV20, or PCV21) 08/06/2007 06/11/2007 Diabetes: Annual Foot Exam 09/02/2007 DTaP,Tdap,and Td Vaccines (7 - Td or Tdap) 10/04/2018 10/04/2008, 02/16/2003, 09/03/1999, Additional history exists Social Influencers of Health Screening 05/05/2022 Diabetes: Annual Urine Albumin-Creatinine Ratio (uACR) 05/16/2022 Cervical Cancer Screening: Pap Smear 04/12/2023 04/12/2020, 04/12/2020, 04/12/2020 HPV Vaccines (1 - 3-dose SCDM series) 2024 COVID-19 Vaccine ( season) 2025 04/30/2021, 04/09/2021 [...] Completed 07/11/2024 Gonorrhea/Chlamydia Screening Discontinued 07/27/2024, 06/20/2021 Hepatitis A Vaccines Aged Out No long er eligible based on patient's age to complete this topic Meningococcal B Vaccine Aged Out No l onger eligible based on patient's age to complete this topic RSV Immunization Patients Under 20 months Aged Out No longer eligible based on patient's age to complete this topic Procedures Procedure Name Priority Date/Time Associated Diagnosis Comments EXTERNAL CLINICAL LAB 02/23/2025 EXTERNAL DIABETIC RETINA EYE EXAM 02/21/2025 CBC [...] mellitus without complication (CMS/HCC V24, CMS/HCC V28) HEMOGLOBIN A1C Routine 02/01/2025 12:49 PM EDT Type 1 diabetes mellitus without complication (CMS/HCC V24, CMS/HCC V28) EXTERNAL VASCULAR ULTRASOUND 01/29/2025 EXTERNAL VASCULAR [...] Relevant to Health Maintenance Results * External clinical lab (02/23/2025) us Provider [facility] LAB BLOOD ORDERABLES Fin al Result * External Diabetic Retina Eye Exam Report (02/21/2025) Anatomical Region Laterality Modality Ultrasound us Provider [facility] IMG US PROCEDURES Final Result * (ABNORMAL) Lipid panel with reflex to direct LDL (02/01/2025 12:49 PM EDT) Cholesterol 207(H) 0 - 200 mg/dL LAB CHEMISTRY METHOD 02/01/2025 6:51 PM EDT [facility] Triglycerides 44 0 - 150 mg/dL LAB CHEMISTRY METHOD 02/01/2025 6:51 PM EDT [facility] HDL 100 >=40 mg/dL LAB CHEMISTRY METHOD 02/01/2025 6:51 PM EDT [facility] LDL Calculated 98 0 - 100 mg/dL LAB CHEMISTRY METHOD 02/01/2025 6:51 PM EDT [facility] Comment:Estimated LDL Calcul ated using equation: Total cholesterol - HDL cholesterol - (Triglycerides/5) VLDL Cholesterol Miles 8.8 mg/dL LAB CHEMISTRY METHOD 02/01/2025 6:51 PM EDT [facility] Non HDL Chol. (LDL+VLDL) 107 <145 mg/dL LAB CHEMISTRY METHOD 02/01/2025 6:51 PM EDT [facility] Chol/HDL Ratio 2.1 0.0 - 4.4 LAB CHEMISTRY METHOD 02/01/2025 6:51 PM EDT [facility] Blood Venous blood specimen / Unknown Venipuncture / Unknown 02/01/2025 12:49 PM EDT 02/01/2025 12:49 PM EDT Rebecca Encinas MD LAB BLOOD ORDERABLES Final Resul t [facility] [address] [place] [address], [place] [phone] * (ABNORMAL) CBC auto differential (02/01/2025 12:49 PM EDT) [facility] WBC 9.7 4.8 - 10.8 K/mcL LAB HEMETOLOGY METHOD 02/01[facility]2025 [facility] RBC 4.10 3.80 - 4.80 M/mcL LAB HEMETOLOGY METHOD 02/01/2025 3:00 [facility] Hemoglobin 11.9 11.5 - 16.0 g/dL LAB HEMETOLOGY METHOD 02/01/2025 3:00 PM [facility] Hematocrit 36.5 35.0 - 47.0 % LAB HEMETOLOGY METHOD 02/01/2025 3:00 PM [facility] MCV 89.5 79.0 - 98.0 FL LAB HEMETOLOGY METHOD 02/01/2025 3:00 PM [facility] MCH 29.2 27.0 - 32.0 pcg LAB HEMETOLOGY METHOD 02/01/2025 3:00 PM [facility] MCHC 32.6 32.0 - 37.0 g/dL LAB HEMETOLOGY METHOD 02/01/2025 3:00 PM [facility] RDW 11.7 11.0 - 15.0 % LAB HEMETOLOGY METHOD 02/01/2025 3:00 PM [facility] Platelets 465(H) 130 - 400 K/mcL LAB HEMETOLOGY METHOD 02/01/2025 3:00 PM [facility] MPV 9.2 7.0 - 11.0 FL LAB HEMETOLOGY METHOD 02/01/2025 3:00 PM [facility] NRBC 0.0 <1.0 % LAB HEMETOLOGY METHOD 02/01/2025 3:00 PM [facility] NRBC Absolute 0.00 <0.10 K/mcL LAB HEMETOLOGY METHOD 02/01/2025 3:00 PM [facility] Neutrophils Relative 64.9 % LAB HEMETOLOGY METHOD 02/01/2025 3:00 PM [facility] Lymphocytes Relative 27.3 % LAB HEMETOLOGY METHOD 02/01/2025 3:00 PM [facility] Monocytes Relative 4.6 % LAB HEMETOLOGY METHOD 02/01/2025 3:00 PM [facility] Eosinophils Relative 2.4 % LAB HEMETOLOGY METHOD 02/01/2025 3:00 PM [facility] Basophils Relative 0.5 % LAB HEMETOLOGY METHOD 02/01/2025 3:00 PM [facility] Immature Granulocytes Relative 0.3 % LAB HEMETOLOGY METHOD 02/01/2025 3:00 PM [facility] Neutrophils Absolute 6.30 1.50 - 7.00 K/mcL LAB HEMETOLOGY METHOD 02/01/2025 3:00 PM [facility] Lymphocytes Absolute 2.65 1.00 - 5.00 K/mcL LAB HEMETOLOGY METHOD 02/01/2025 3:00 PM [facility] Monocytes Absolute 0.45 0.20 - 1.00 K/mcL LAB HEMETOLOGY METHOD 02/01/2025 3:00 PM [facility] Eosinophils Absolute 0.23 0.00 - 0.50 K/mcL LAB HEMETOLOGY METHOD 02/01/2025 3:00 PM [facility] Basophils Absolute 0.05 0.00 - 0.20 K/mcL LAB HEMETOLOGY METHOD 02/01/2025 3:00 PM [facility] Immature Granulocytes Absolute 0.03 0.00 - 0.03 K/mcL LAB HEMETOLOGY METHOD 02/01/2025 3:00 PM EDT [facility] Blood Venous blood specimen / Unknown Venipuncture / Unknown 02/01/2025 12:49 PM EDT 02/01/2025 12:49 PM EDT Rebecca Encinas MD LAB BLOOD ORDERABLES Final Resul t Performing Organization Address [facility]/ZIP Co de Phone Number [facility] [address] [place] [address], [place] [phone] * (ABNORMAL) Hemoglobin A1c (02/01/2025 12:49 PM EDT) Hemoglobin A1C 8.5(H) <6.5 % LAB CHEMISTRY METHOD 02/01/2025 10:19 PM EDT [facility] Mean Bld Glu Estim. 197 mg/dL LAB CHEMISTRY METHOD 02/01/2025 10:19 PM EDT [facility] Blood Venous blood specimen / Unknown Venipuncture / Unknown 02/01/2025 12:49 PM EDT 02/01/2025 12:49 PM EDT us Rebecca Encinas MD LAB BLOOD ORDERABLES Final Resul t Performing Organization Address [facility]/ZIP Co de Phone Number [facility] [address] [place] [address], [place] [phone] * (ABNORMAL) Comprehensive metabolic panel (02/01/2025 12:49 PM EDT) Sodium 137 133 - 145 mmol/L LAB CHEMISTRY METHOD 02/01/2025 6:46 PM EDT [facility] Potassium 4.8 3.5 - 5.5 mmol/L LAB CHEMISTRY METHOD 02/01/2025 6:46 PM EDT [facility] Chloride 107 96 - 110 mmol/L LAB CHEMISTRY METHOD 02/01/2025 6:46 PM EDT [facility] CO2 22 21 - 32 mmol/L LAB CHEMISTRY METHOD 02/01/2025 6:46 PM [facility] Anion Gap 8 3 - 11 LAB CHEMISTRY METHOD 02/01/2025 6:46 PM [facility] Glucose 216(H) 70 - 100 mg/dL LAB CHEMISTRY METHOD 02/01/2025 6:46 PM [facility] BUN 30(H) 5 - 25 mg/dL LAB CHEMISTRY METHOD 02/01/2025 6:46 PM [facility] Creatinine 0.93 0.50 - 1.10 mg/dL LAB CHEMISTRY METHOD 02/01/2025 6:46 PM [facility] eGFR 87 >=60 mL/min/1. 73m2 LAB CHEMISTRY METHOD 02/01/2025 6:46 PM [facility] Comment:Calculation based on the Chronic Kidney Disease Epidemiology Collaboration (CKD-EPI) equation refit without adjustment for race. BUN/Creatinine Ratio 32.3 LAB CHEMISTRY METHOD 02/01/2025 6:46 PM [facility] Calcium 8.8 8.5 - 10.5 mg/dL LAB CHEMISTRY METHOD 02/01/2025 6:46 PM [facility] AST (SGOT) 15 10 - 42 unit/L LAB CHEMISTRY METHOD 02/01/2025 6:46 PM [facility] ALT (SGPT) 14 10 - 60 unit/L LAB CHEMISTRY METHOD 02/01/2025 6:46 PM [facility] Alkaline Phosphatase 95 42 - 121 unit/L LAB CHEMISTRY METHOD 02/01/2025 6:46 PM [facility] Total Protein 6.4 6.0 - 8.0 g/dL LAB CHEMISTRY METHOD 02/01/2025 6:46 PM [facility] Albumin 3.1(L) 3.2 - 5.0 g/dL LAB CHEMISTRY METHOD 02/01/2025 6:46 PM [facility] Total Bilirubin 0.4 0.0 - 1.4 mg/dL LAB CHEMISTRY METHOD 02/01/2025 6:46 PM EDT [facility] Blood Venous blood specimen / Unknown Venipuncture / Unknown 02/01/2025 12:49 PM EDT 02/01/2025 12:49 PM EDT Rebecca Encinas MD LAB BLOOD ORDERABLES Final Resul t Performing Organization Address [facility]/ZIP Co de Phone Number [facility] [address] [place] [address], [place] [phone] * External Vascular Ultrasound (01/29/2025) Only the [...] MOLECULAR DIAGNOSTICS METHOD 07/28/2024 9:36 AM EST [facility] Chlamydia trachomatis PCR Negative Negative LAB MOLECULAR DIAGNOSTICS METHOD 07/28/2024 9:36 AM EST [facility] Swab Cervix uteri structure / Unknown Non-blood Collection / Unknown 07/27/2024 3:19 PM EST 07/27/2024 3:19 PM EST Marbella Pro MD LAB MICROBIOLOGY - GENERAL ORDERABLES Final Result Performing Organization Address [facility]/ZIP Co de Phone Number [facility] [address] [place] [address], [place] [phone] * HIV Screening (11/23/2020) HIV Screening abstracted Historical Provider HEALTH MAINTENANCE Final Result * Hepatitis C Screening (11/23/2020) Hepatitis C Screening abstracted Historical Provider HEALTH MAINTENANCE Final Result * Pap smear (04/12/2020) 04/12/2020 Narrative HISTORICAL TESTING LAB RESULTING AGENCY - 04/14/2020 12:26 PM EST [id number] THINPREP PAP, IMAGED: NEGATIVE FOR SQUAMOUS INTRAEPITHELIAL [...] Most Recently Relevant to Health Maintenance [place] [address] HEALTH PLAN Care Teams Fleet Salesperson Relationship Specialty Start Date End Date Rebecca Encinas MD [address] [place] [phone] PCP - General Internal Medicine 09/10/24
--- OUTSIDE RECORDS SUMMARY | 2025-03-03 09:38 | XMS_ITS | Encounter Summary ---
Author Organization [facility] Address [address] [place] [address] Care Team Providers Care Manager Strategic Development Name Role Phone Rebecca Encinas MD Primary Care Provider [phone] Reason for Visit * Reason Onset Date Comments Hospitalization/ER 02/28/2025 Encounter Details Date Type Department Care Team (Late st Contact Info) Description 02/28/2025 Telephone Adult Medicine [address] [phone] Rebecca Encinas MD [address] [place] [address] Social History Tobacco Use Types Packs/Day Years [...] as of this encounter Progress Notes * Sheila Herrera RN - 02/28/2025 3:34 PM EDT Pt booked with dr encinas 03/10 * Samanta Dugan - 02/28/2025 3:21 PM EDT Hospital/ER follow up appointment needed Hospital patient was treated at: [facility], [facility] Was this only an ER visit or was the patient admitted to the hospital? Admitted Date of visit if ER visit only: If patient was admitted what was the date of discharge? 02/26/25 Reason/diagnosis for visit or stay: chest pain, SOB When was the patient told to follow up? NORY Was visit or stay related to an injury? If yes, what was the date of injury (DOI)? No If yes, was the injury due to: Not 3rd green party related documented in this encounter Plan of Treatment Upcoming Encounters Date Type Department Care Team (Late st Contact Info) Description 03/10/2025 9:00 AM EDT Office Visit Adult Medicine [address] [phone] Rebecca Encinas MD [address] [place] [address] 04/14/2025 2:30 PM EST Office Visit Orthopedic Surgery - [place] [address] [phone] Wei Sheppard DPM [address] [phone] 05/16/2025 8:50 AM EST Office Visit Gastroenterology - [place] [address] [place] 175 [facility] [address] [place] [phone] Charity Wall PA 175 [facility] [address] [place] [address] documented as of this encounter Visit Diagnoses Not on filedocumented in this encounter Additional Health Concerns Assessment Noted Time PHQ-9 Depression Total Score: 11 025 2:47 PM EST documented as of this encounter Care Teams Manager Strategic Development Relationship Specialty Start Date End Date Rebecca Encinas MD [address] [place] [address] PCP - General Internal Medicine 09/10/24 documented as of this encounter
== END ==
LOC: HO.CARD 08:57
DX: R01.1 Cardiac murmur, unspecified (principal)
CPT/HCPCS: 93306

== ENCOUNTER → 2025-03-03 09:00 | Outpatient (BNV) | payer OTHER, SELFPAY | PROVIDERS: Visit Provider Internal Medicine | DX: R01.1 Cardiac murmur, unspecified (principal); I35.8 Other nonrheumatic aortic valve disorders | CPT/HCPCS: 93306 ==

== ENCOUNTER 2025-03-07 08:43 | Outpatient (AMB) | payer OTHER, SELFPAY ==
--- NOTE | 2025-03-07 08:51 | A.OFFVIS_ITS ---
Vital Signs 03/07/25 08:53 Height 5 ft 2 in Weight 220 lb 7.396 oz BMI 40.3 BP 120/78 Blood Pressure Location Rt brachial Position Sitting Pulse 95 Pulse Source Pulse Oximeter Intake Visit Reasons: T1Dm Intake Note: Patient present today for Type 1 Diabetes Mellitus. Patient receives Dexcom G7 supplies through: [employer] Last Diabetic Eye exam: 01/2025, [facility] Last Podiatry Visit: Has an appt coming soon at [place] Random Glucose: 166 mg/dL HgA1C: 8.5% 02/23/2025 Solar Sales Associate Required: No Accompanied by: Mother Allergies Sulfa (Sulfonamide Antibiotics) (SULFA (SULFONAMIDE ANTIBIOTICS)) Allergy (Unknown, Verified 02/25/25 11:07) HIVES clindamycin Allergy (Verified 02/25/25 11:07) Hives fish derived (fish) Allergy (Verified 02/25/25 11:07) Anaphylaxis Medication List - Last Reconciled 03/07/25 by Adrian Leal MD acetone (urine) test (Ketone Urine Test strips) As directed albuterol sulfate 90 mcg/actuation (Ventolin HFA) 2 puffs inhalation QID PRN amlodipine 10 mg See Protocol PO DAILY@2000 atorvastatin (Lipitor) 10 mg PO QPM blood-glucose sensor (Dexcom G7 Sensor device) As directed esomeprazole magnesium 40 mg PO QAM furosemide (Lasix) 20 mg PO DAILY glucagon 3 mg/actuation (Baqsimi) 3 mg intranasal ONCE insulin glargine (Lantus Solostar U-100 Insulin) 40 units subcut BEDTIME insulin lispro (Humalog KwikPen (U-100) Insulin) 1 sliding scale dose subcut TID loratadine 10 mg PO DAILY losartan 200 mg (2 x 100 mg) PO DAILY ondansetron 4 mg PO Q8H PRN pen needle, diabetic (Comfort EZ Pen Chazy) As directed injects 4 X/day sumatriptan succinate 25 mg PO DAILY PRN HPI Comments Details: 29 YO F with is seen in consultation for T1DM at the request of PCP. Initially diagnosed with T1DM in since age 8 when presented with DKA .Mom and sister have Type 1 DM Was initially started on treatment with insulin .Saw adult endo at [facility] Current regimen: Lantus 30 units Lispro carb 1:5 for meals for correction 1:20 Dexcom download shows she is using the sensor 91% of the time. Average glucose is 226 with G mi of 8.7% and coefficient of variation 42.3%. 35% range with 64% hyperglycemia and 1% hypoglycemic. Pen shows elevation in point of cares after dinner, after lunch with persistent hyperglycemia with a overnight per Per the CGM Dexcom CGMS is active 94 % of time . data the patient's predicted A1C is 9.9 % Avg glucose is 274 . Variability of 105 The patient's blood sugars were in target 20% of the time, above target 79% of the time, and below target <1% of the time. Pen shows persistent hyperglycemia throughout the day with small post-dinner excursions Most recent A1C: [], [down] from prior of []. Reports low sugars rarely . but before was hypoglycemia in morning Treats lows with OBDULIO trejo . Checks sugar after to ensure it is rising. Follows the rule of 15's. Family history of autoimmunity in as above Not Has eyes checked yearly, last eye exam several yrs ago , has retinopathy. Has neuropathy, last foot exam [], Not sees podiatry. Has nephropathy, on CHERYL/ARB. followed by nephrology Has HLD, Not on statin. Not [ history of CAD. Has diastolic HF Not Had diabetes education. Diet/Carb counting: Yes Has prior episodes of DKA. within yr Has prior severe episodes of hypoglycemia requiring help or hospitalization but not recently Met with the converter supervisor and is considering going on insulin pump. PFSH Medical History Chest pain Type 1 diabetes Hypertension 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 Cocaine use Surgical History No pertinent past surgical history Family History Father Hypertension Mother Hypertension Diabetes Social History Household Members: Family Housing: House Do you presently have visiting nurse or other home services: No Alcohol intake: current Alcohol intake frequency: holidays/special occasions only Patient Tobacco Use Status: Never used Tobacco Substance Use Type: Marijuana service: No Physical Exam Absence of Cushingoid features. Absence of acromegalic features. Neck exam reveals nl size thyroid about 15 gms. No thyroid nodules palpable. No carotid bruits present. Lungs CTA. Heart S1 S2, Reg R/R. No M/R/ G. Skin exam reveals absence of vitiligo or acanthosis nigricans. Abdominal exam reveals Soft NT/ND with NA BS. No organomegaly present. Extrem Other: Visual exam of foot performed. No ulcerations or open lesions. No onchomycosis, no callouses.Pulses 2 + distally. Sensation intact to monofilament exam. Vibratory sensation sensed decreased with 128 Hz tuning fork Assessment & Plan Assessment & Plan (1) Type 1 diabetes: Code(s): E10.9 - Type 1 diabetes mellitus without complications Category: Medical Qualifiers: Diabetes mellitus complication detail: with nephropathy Diabetes mellitus complication status: with kidney complications Qualified Code(s): E10.21 - Type 1 diabetes mellitus with diabetic nephropathy Plan: This is a 29-year-old white female with a history of type 1 diabetes being treated with basal-bolus insulin with poor glycemic control and known microvascular complications namely proteinuria/CKD and retinopathy. Plan is to have the patient returned to an insulin: Carbohydrate of 1:5 before lunch and before dinner. We will also reduce the glargine to 24 units and lower if patient continues to experience a.m. hypoglycemia . Patient should continue to pursue a diabetic pump with the educator and hired hand. Lastly, we talked about the eyelid cell transplant program through [employer] and I gave her information about the ongoing clinical trial at [facility] which she can investigate Coding Level of Care Code Est Pt Level 4 (71289) Complex EM visit Add On G2211 Diagnoses Type 1 diabetes mellitus with nephropathy E10.21 Diabetes mellitus complication detail: with nephropathy Diabetes mellitus complication status: with kidney complications
[2025-03-07 08:53] VITALS: BP 120/78; PULSE 95; BMI 40.3
[2025-03-07 09:05] LABS: Glucose, Whole Blood 166 mg/dL (60-115)
--- OUTSIDE RECORDS SUMMARY | 2025-03-07 09:28 | XMS_ITS | Encounter Summary ---
Author Organization [facility] Address [address] [place] [address] Care Team Providers Care Building And Grounds Supervisor Name Role Phone Jinny Sanchez MD Primary Care Provider Un available Pending Sale To [facility], Pcp Primary Care Provider Rebecca Jimenez MD Primary Care Provider Encounter Details Date Type Department Care Team Description 07/03/2017 Retail Reset Merchandiser Report Medical Records [address] [place] [id number] Marixa Griffin, DO Social History Tobacco Use [...] on filedocumented in this encounter Care Teams Building And Grounds Supervisor Relationship Specialty Start Date End Date Jinny Sanchez MD PCP - General Internal Medicine 12/01/13 Pending Sale To [facility], Pcp PCP - General Internal Medicine 03/11/22 08/04/22 Rebecca Encinas MD [address] [place], [place] [phone] PCP - General Internal Medicine 08/05/22 documented as of this encounter
--- OUTSIDE RECORDS SUMMARY | 2025-03-07 09:28 | XMS_ITS | Encounter Summary ---
Author Organization [facility] Address [address] [place] [address] Care Team Providers Care Email Operations Manager Name Role Phone Jinny Sanchez MD Primary Care Provider Un available [facility], Pcp Primary Care Provider Rebecca Jimenez MD Primary Care Provider [phone] Reason for Visit * Reason Onset Date Comments Faxed Refill 11/12/2019 medroxyPROGESTER one (DEPO-PROVERA) 150 MG/ML injection Encounter Details Date Type Department Care Team Description 11/12/2019 Refill OBGYN - [place] [address] [place] [id number] Yolanda Reid CN [address] [place] [phone] Faxed Refill (medroxyPROGESTERone (DEPO-PROVERA) 150 MG/ML injection) Social History Tobacco Use Types Packs/Day Years [...] Telephone Encounter - Mary Cummins R.N. - 11/12/2019 3:46 PM EDT Pt was getting depo injections at home. Pt was calling in to notify us of dates of her depo injection. Noted in immunizations. * Telephone Encounter - Maricel Willoughby - 11/12/2019 2:48 PM EDT WHEN WAS THE PATIENTS LAST ANNUAL DOCUMENTATION IMPROVEMENT SPECIALIST EXAM? 07/31/18 Does patient have an upcoming appointment? Yes 11/15/19 (THE MEDICATION REQUESTED IS ON THE MED LIST ABOVE) Did you check the Pharmacy information above?: YES Indicate how soon the patient needs the script: BY THE END OF THE DAY - patient has an appointment on Friday for depo shot and ag Patient would like script to be: E-PRESCRIBED/FAXED TO PHARMACY Is the doctor here today?: YES Can the message wait until the doctor returns?: NO Has the patient been told that the prescription will not be filled until the end of the day? NO Payor: [facility] / Plan[facility] / Product Type: POS [id number] documented in this encounter Plan of Treatment Not on file documented as of this encounter Visit Diagnoses Not on filedocumented in this encounter Care Teams Email Operations Manager Relationship Specialty Start Date End Date Jinny Sanchez MD PCP - General Internal Medicine 12/01/13 [facility], Pcp PCP - General Internal Medicine 03/11/22 08/04/22 Rebecca Encinas MD [address] [place] [address] PCP - General Internal Medicine 08/05/22 documented as of this encounter
--- OUTSIDE RECORDS SUMMARY | 2025-03-07 09:28 | XMS_ITS | Encounter Summary ---
Author Organization [facility] Address [address] [place] [address] Care Team Providers Care Osteology Teacher Name Role Phone Jinny Sanchez MD Primary Care Provider Un available [facility], Pcp Primary Care Provider Rebecca Jimenez MD Primary Care Provider [phone] Reason for Visit * Reason Onset Date Comments Faxed Refill 11/10/2020 SYRINGE-NEEDLE, DISP, 3 ML 25G X 5/8 3 ML Misc Encounter Details Date Type Department Care Team Description 11/10/2020 Refill OBGYN - [address] [address] Johan Askew DO Faxed Refill (SYRINGE-NEEDLE, DISP, [...] EDT WHEN WAS THE PATIENTS LAST ANNUAL MECHANICAL OPERATOR EXAM? 04/12/20 Does patient have an upcoming [...] the end of the day? NO Payor: [facility] / Plan: POS $20 [place] / Product Type: POS [id number] documented in this encounter Plan of Treatment Not on file documented as of this encounter Visit Diagnoses Not on filedocumented in this encounter Care Teams Osteology Teacher Relationship Specialty Start Date End Date Jinny Sanchez MD PCP - General Internal Medicine 12/01/13 [facility] Pcp PCP - General Internal Medicine 03/11/22 08/04/22 Rebecca Encinas MD [address] [place] [address] PCP - General Internal Medicine 08/05/22 documented as of this encounter
--- OUTSIDE RECORDS SUMMARY | 2025-03-07 09:28 | XMS_ITS | Encounter Summary ---
Author Organization [facility] Address [address] [place] [address] Care Team Providers Care Vp Outcomes Name Role Phone Jinny Sanchez MD Primary Care Provider Un available [facility], [facility], Pcp Primary Care Provider Rebecca Jimenez MD Primary Care Provider [phone] Encounter Details Date Type Department Care Team Description 09/08/2018 Engagement Quality Consultant Report Medical Records [address] [place] [address] Jackie Jamison Social History Tobacco Use Types Packs/Day Years [...] on filedocumented in this encounter Care Teams Vp Outcomes Relationship Specialty Start Date End Date Jinny Sanchez MD PCP - General Internal Medicine 12/01/13 [facility], [facility], Pcp PCP - General Internal Medicine 03/11/22 08/04/22 Rebecca Encinas MD [address] [place], [place] [phone] PCP - General Internal Medicine 08/05/22 documented as of this encounter
--- OUTSIDE RECORDS SUMMARY | 2025-03-07 09:28 | XMS_ITS | Clinical Summary ---
Author Organization [facility] Address [address] [place] [address] Care Team Providers Care Feeder Worker Power Unit Operator Name Role Phone Rebecca Encinas MD Primary Care Provider [phone] Allergies Active Allergy Reactions Severity Noted Date [...] 06/19/2021 Active vitamin D (ERGOCALCIFEROL) 1.25 MG (01964 UT) capsule Take 1 capsule by mouth [...] Date Type 1 diabetes mellitus 015 Overview: [facility] Endocrinology. Dr. Griffin. Dx age 8 Immunizations Name Administration Dates Next Due DTaP 02/16/2003, 0,05/04/1998,03/01/19 98,1997 HIB 09/03/1999, 8,03/01/1998,11/29/18 98 Hepatitis B-3 Dose (<19yrs) 01/05/2015,0 11/17/2014,09/27/1998,10/30/18 98,1997 Influenza (> 6 Months) 05/04/2012,2011,06/11/2007,05/02/20 06 MMR (Oytewqh-Porrq-Qxoytys) 11/17/2001, 9 Yinrpzp-Jelof-Buxyllyd + 11/15/2014 Meningococcal (Menactra) 10/04/2008 Fjncl-Ojwqo-Czhlaqnc + 11/15/2014 PPD-RBMG 11/15/2014 Pneumococcal(Pedi) Conjugate PCV-7 06/11/2007 Etprelp-Fllcc-Plmjcrqy + 11/15/2014 Tdap 10/04/2008 Varicella 09/03/1999 Family [...] 12/2011, 06/11/2007, Additional history exists Care Teams Feeder Worker Power Unit Operator Relationship Specialty Start Date End Date Rebecca Encinas MD [address] [place] [phone] PCP - General Internal Medicine 08/05/22
--- OUTSIDE RECORDS SUMMARY | 2025-03-07 09:28 | XMS_ITS | Clinical Summary ---
Author Organization [facility] Address [address] [place] [address] Phone Care Team Providers Care Sign Builder Name Role Phone Rebecca Encinas MD Primary Care Provider [phone] Allergies Active Allergy Reactions Criticality Noted Date [...] asthma without complication Chronic diastolic heart failure (CMS/[facility] V24, CM S/[facility] V28) 10/20/2024 Menorrhagia with irregular cycle [...] 1 diabetes mellitus wit h ophthalmic complication ([facility] V24, [facility] V28) 06/25/2024 Depression, major, recurrent , moderate ([facility] V24, [facility] V28) 05/11/2024 Obesity 05/11/2024 Tobacco use [...] Care Team Description 02/28/2025 Telephone Adult Medicine [facility] [address] [place] [phone] Rebecca Encinas MD 02/23/2025 9:46 AM EDT - 02/23/2025 11:59 PM EDT Hospital Encounter [facility] MRI [address] [place] [phone] Gastroesophageal reflux disease, unspecified whether esophagitis present; Nausea and vomiting, unspecified vomiting type Discharge Disposition: Home or Self Care 02/17/2025 Telephone Adult Medicine [facility] [address] [place] [phone] Rebecca Encinas MD 02/01/2025 Telephone Gastroenterology [facility] 175 [facility] 175 [facility] [address] [place] [phone] Charity Wall PA from Last 3 Months Immunizations Immunization Administration Dates Next Due DTaP (Infanrix) 6wks to less than 7yo ,09/03/1999,05/04/1998,1997,1997 NPpH-YRC-PRY (Pentacel) 2mo to less than 5yo 09/03/1999,05/04/1998,03/01/1998,1997 [...] ENDOSCOPY 2007 PROCEDURE: UPPER GI ENDOSCOPY/EXAM; COMMENT: [facility] Medical History Medical History Date Comments Type 1 diabetes mellitus (CM S/HCC V24, CMS/HCC V28) DX:Type 1 diabetes mellitus (HCC); COMMENT: [facility] Endocrinology. Dr. Griffin. Dx age 8 [...] 9:00 AM EDT Office Visit Adult Medicine [address] [phone] Rebecca Encinas MD [address] [place] [address] 04/14/2025 2:30 PM EST Office Visit Orthopedic Surgery - [place] [address] [phone] Wei Sheppard, DPM [address] [phone] 05/16/2025 8:50 AM EST Office Visit Gastroenterology - [place] [facility] [address] [phone] Charity Wall PA 175 [facility] [address] [place] [address] Health Maintenance Due Date Last Done Comments [...] Procedure Name Priority Date/Time Associated Diagnosis Comments MR ABDOMEN WO AND W CONTRAST Routine 02/23/2025 11:00 AM EDT Gastroesophageal reflux disease, unspecified whether esophagitis present Nausea and vomiting, unspecified vomiting type EXTERNAL CLINICAL LAB 02/23/2025 EXTERNAL DIABETIC RETINA [...] XRAY REPORT 01/29/2025 EXTERNAL XRAY REPORT 01/29/2025 CHLAMYDIA TRACHOMATIS AND NEISSERIA GONORRHOEAE PCR Routine 07/27/2024 3:19 PM EST Screen for STD (sexually transmitted disease) HEPATITIS C SCREENING Routine 11/23/2020 HIV SCREENING Routine 11/23/2020 PAP SMEAR Routine 04/12/2020 from Last 3 Months or Most Recently Relevant to Health Maintenance Results * MR Abdomen wo and w Contrast (02/23/2025 11:00 AM EDT) Anatomical Region Laterality Modality Body Magnetic Resonan ce 03/05/2025 9:27 AM EDT Impressions 03/05/2025 10:17 AM EDT Stable arterially enhancing lesion with central nonenhancing scar in the right posterior liver, most likely benign focal nodular hyperplasia rather than adenoma. -------- FINAL REPORT -------- Dictated By: SUMAYA CABAN Dictated Date: 03/05/2025 09:27 ET Assigned Physician: SUMAYA CABAN Reviewed and Electronically Signed By: SUMAYA CABAN Signed Date: 03/05/2025 10:17 ET Workstation ID: [id number] Transcribed By: Self Edit Transcribed Date: 03/05/2025 09:27 ET Narrative 03/05/2025 10:17 AM EDT PROCEDURE: Abdominal MRI INDICATION: Liver lesion TECHNIQUE: Multiplanar, multisequence MRI of the abdomen without and with contrast. 20 mL Dotarem injected intravenously without complication COMPARISON: MRI 07/08/[address] 04/13/2024 FINDINGS: Hepatic parenchymal signal is normal on out of phase imaging. Lobulated arterially enhancing lesion within the right posterior liver is similar compared to the prior exams measuring approximately 47 x 26 mm as compared to 48 x 26 mm on the prior MRI. There is a suggestion of a nonenhancing central scar on arterial phase imaging The lesion is not well visualized on other phases of contrast and not well visualized on T2-weighted imaging. Gallbladder and biliary tree are normal. Pancreas, spleen, and adrenal glands are normal. Kidneys are normal. Portal vein is patent. Abdominal aorta is normal in size. No retroperitoneal or mesenteric lymphadenopathy. Visualized portions of the bowel are normal. No ascites or fluid collection. Visualized intrathoracic structures and superficial soft tissues are normal. Bones are normal. Procedure Note Sumaya Caban MD - 03/05/2025 PROCEDURE: Abdominal MRI INDICATION: Liver lesion TECHNIQUE: Multiplanar, multisequence MRI of the abdomen without and withcontrast. 20 mL Dotarem injected intravenously without complication COMPARISON: MRI 07/08/[address] 04/13/2024 FINDINGS: Hepatic parenchymal signal is normal on out of phase imaging. Lobulatedarterially enhancing lesion within the right posterior liver is similarcompared to the prior exams measuring approximately 47 x 26 mm as comparedto 48 x 26 mm on the prior MRI. There is a suggestion of a nonenhancingcentral scar on arterial phase imaging The lesion is not well visualizedon other phases of contrast and not well visualized on T2-weightedimaging. Gallbladder and biliary tree are normal. Pancreas, spleen, and adrenal glands are normal. Kidneys are normal. Portal vein is patent. Abdominal aorta is normal in size. No retroperitoneal or mesenteric lymphadenopathy. Visualized portions of the bowel are normal. No ascites or fluidcollection. Visualized intrathoracic structures and superficial soft tissues arenormal. Bones are normal. IMPRESSION: Stable arterially enhancing lesion with central nonenhancing scar in theright posterior liver, most likely benign focal nodular hyperplasia ratherthan adenoma. -------- FINAL REPORT -------- Dictated By: SUMAYA CABAN Dictated Date: 03/05/2025 09:27 ET Assigned Physician: SUMAYA CABAN Reviewed and Electronically Signed By: SUMAYA CABAN Signed Date: 03/05/2025 10:17 ET Workstation ID: [id number] Transcribed By: Self Edit Transcribed Date: 03/05/2025 09:27 ET Charity SCHW[facility] [place]ED[place] Final Resu lt * External clinical lab (02/23/2025) [facility] LAB BLOOD ORDERABLES Fin al Result * External Diabetic Retina Eye Exam Report (02/21/2025) Anatomical Region Laterality Modality Ultrasound Provider [place] [facility] PROCED[facility] Final Result * (ABNORMAL) Lipid panel with reflex to direct LDL (02/01/2025 12:49 PM EDT) Cholesterol 207(H) 0 - 200 mg/dL LAB CHEMISTRY METHOD 02/01/2025 6:51 PM EDT [facility] Triglycerides 44 0 - 150 mg/dL LAB CHEMISTRY METHOD 02/01/2025 6:51 PM EDT [facility] HDL 100 >=40 mg/dL LAB CHEMISTRY METHOD 02/01/2025 6:51 PM EDT [facility] LDL Calculated 98 0 - 100 mg/dL LAB CHEMISTRY METHOD 02/01/2025 6:51 PM EDT [facility] Comment:Estimated LDL Calcul ated using equation: Total cholesterol - HDL cholesterol - (Triglycerides/5) VLDL Cholesterol Miles 8.8 mg/dL LAB CHEMISTRY METHOD 02/01/2025 6:51 PM EDT [facility] Non HDL Chol. (LDL+VLDL) 107 <145 mg/dL LAB CHEMISTRY METHOD 02/01/2025 6:51 PM EDT [facility] Chol/HDL Ratio 2.1 0.0 - 4.4 LAB CHEMISTRY METHOD 02/01/2025 6:51 PM EDT [facility] Blood Venous blood specimen / Unknown Venipuncture / Unknown 02/01/2025 12:49 PM EDT 02/01/2025 12:49 PM EDT us Rebecca Encinas MD LAB BLOOD ORDERABLES Final Resul t [facility] [address] [place] [address], * (ABNORMAL) CBC auto differential (02/01/2025 12:49 PM EDT) WBC 9.7 4.8 - 10.8 K/mcL LAB HEMETOLOGY METHOD 02/01/2025 3:00 PM EDT [facility] RBC 4.10 3.80 - 4.80 M/mcL LAB HEMETOLOGY METHOD 02/01/2025 3:00 PM EDT [facility] Hemoglobin 11.9 11.5 - 16.0 g/dL LAB HEMETOLOGY METHOD 02/01/2025 3:00 PM [facility] Hematocrit 36.5 35.0 - 47.0 % LAB HEMETOLOGY METHOD 02/01/2025 3:00 PM [facility] MCV 89.5 79.0 - 98.0 FL LAB HEMETOLOGY METHOD 02/01/2025 3:00 PM [facility] MCH 29.2 27.0 - 32.0 pcg LAB HEMETOLOGY METHOD 02/01/2025 3:00 PM [facility] MCHC 32.6 32.0 - 37.0 g/dL LAB HEMETOLOGY METHOD 02/01/2025 3:00 PM [facility] RDW 11.7 11.0 - 15.0 % LAB HEMETOLOGY METHOD 02/01/2025 3:00 PM [facility] Platelets 465(H) 130 - 400 K/mcL LAB HEMETOLOGY METHOD 02/01/2025 3:00 PM [facility] MPV 9.2 7.0 - 11.0 FL LAB HEMETOLOGY METHOD 02/01/2025 3:00 PM [facility] NRBC 0.0 <1.0 % LAB HEMETOLOGY METHOD 02/01/2025 3:00 PM [facility] NRBC Absolute 0.00 <0.10 K/mcL LAB HEMETOLOGY METHOD 02/01/2025 3:00 PM [facility] Neutrophils Relative 64.9 % LAB HEMETOLOGY METHOD 02/01/2025 3:00 PM [facility] Lymphocytes Relative 27.3 % LAB HEMETOLOGY METHOD 02/01/2025 3:00 PM [facility] Monocytes Relative 4.6 % LAB HEMETOLOGY METHOD 02/01/2025 3:00 PM [facility] Eosinophils Relative 2.4 % LAB HEMETOLOGY METHOD 02/01/2025 3:00 PM EDT [facility] Basophils Relative 0.5 % LAB HEMETOLOGY METHOD 02/01/2025 3:00 PM EDT [facility] Immature Granulocytes Relative 0.3 % LAB HEMETOLOGY METHOD 02/01/2025 3:00 PM EDT [facility] Neutrophils Absolute 6.30 1.50 - 7.00 K/mcL LAB HEMETOLOGY METHOD 02/01/2025 3:00 PM EDT [facility] Lymphocytes Absolute 2.65 1.00 - 5.00 K/mcL LAB HEMETOLOGY METHOD 02/01/2025 3:00 PM EDT [facility] Monocytes Absolute 0.45 0.20 - 1.00 K/mcL LAB HEMETOLOGY METHOD 02/01/2025 3:00 PM EDT [facility] Eosinophils Absolute 0.23 0.00 - 0.50 K/mcL LAB HEMETOLOGY METHOD 02/01/2025 3:00 PM EDT [facility] Basophils Absolute 0.05 0.00 - 0.20 K/mcL LAB HEMETOLOGY METHOD 02/01/2025 3:00 PM EDT [facility] Immature Granulocytes Absolute 0.03 0.00 - 0.03 K/mcL LAB HEMETOLOGY METHOD 02/01/2025 3:00 PM EDT [facility] Blood Venous blood specimen / Unknown Venipuncture / Unknown 02/01/2025 12:49 PM EDT 02/01/2025 12:49 PM EDT us Rebecca Encinas MD LAB BLOOD ORDERABLES Final Resul t [facility] [address] [place] [address], * (ABNORMAL) Hemoglobin A1c (02/01/2025 12:49 PM EDT) [facility] Hemoglobin A1C 8.5(H) <6.5 % LAB CHEMISTRY METHOD 02/01/2025 10:19 PM EDT [facility] Mean Bld Glu Estim. 197 mg/dL LAB CHEMISTRY METHOD 02/01/2025 10:19 PM EDT [facility] Blood Venous blood specimen / Unknown Venipuncture / Unknown 02/01/2025 12:49 PM EDT 02/01/2025 12:49 PM EDT us Rebecca Encinas MD LAB BLOOD ORDERABLES Final Resul t [facility] [address] [place] [address], [place] [phone] * (ABNORMAL) Comprehensive metabolic panel (02/01/2025 12:49 PM EDT) [facility] Sodium 137 133 - 145 mmol/L LAB CHEMISTRY METHOD 02/01/2025 6:46 PM [facility] Potassium 4.8 3.5 - 5.5 mmol/L LAB CHEMISTRY METHOD 02/01/2025 6:46 PM [facility] Chloride 107 96 - 110 mmol/L LAB CHEMISTRY METHOD 02/01/2025 6:46 PM [facility] CO2 22 21 - 32 mmol/L LAB CHEMISTRY METHOD 02/01/2025 6:46 PM [facility] Anion Gap 8 3 - 11 LAB CHEMISTRY METHOD 02/01/2025 6:46 PM [facility] Glucose 216(H) 70 - 100 mg/dL LAB CHEMISTRY METHOD 02/01/2025 6:46 PM [facility] BUN 30(H) 5 - 25 mg/dL LAB CHEMISTRY METHOD 02/01/2025 6:46 PM [facility] Creatinine 0.93 0.50 - 1.10 mg/dL LAB CHEMISTRY METHOD 02/01/2025 6:46 PM T [facility] eGFR 87 >=60 mL/min/1. 73m2 LAB CHEMISTRY METHOD 02/01/2025 6:46 PM [facility] Comment:Calculation based on the Chronic Kidney Disease Epidemiology Collaboration (CKD-EPI) equation refit without adjustment for race. BUN/Creatinine Ratio 32.3 LAB CHEMISTRY METHOD 02/01/2025 6:46 PM [facility] Calcium 8.8 8.5 - 10.5 mg/dL LAB CHEMISTRY METHOD 02/01/2025 6:46 PM [facility] AST (SGOT) 15 10 - 42 unit/L LAB CHEMISTRY METHOD 02/01/2025 6:46 PM [facility] ALT (SGPT) 14 10 - 60 unit/L LAB CHEMISTRY METHOD 02/01/2025 6:46 PM [facility] Alkaline Phosphatase 95 42 - 121 unit/L LAB CHEMISTRY METHOD 02/01/2025 6:46 PM [facility] Total Protein 6.4 6.0 - 8.0 g/dL LAB CHEMISTRY METHOD 02/01/2025 6:46 PM [facility] Albumin 3.1(L) 3.2 - 5.0 g/dL LAB CHEMISTRY METHOD 02/01/2025 6:46 PM [facility] Total Bilirubin 0.4 0.0 - 1.4 mg/dL LAB CHEMISTRY METHOD 02/01/2025 6:46 PM [facility] Blood Venous blood specimen / Unknown Venipuncture / Unknown 02/01/2025 12:49 PM EDT 02/01/2025 12:49 PM EDT us Rebecca Encinas MD LAB BLOOD ORDERABLES Final Resul t [facility] [address] [place] [address], [place] [phone] * External Vascular Ultrasound (01/29/2025) Only the most recent of2 resultswithin the time period is included. Anatomical Region Laterality Modality Ultrasound Provider [facility] CV VASCULAR PROCEDURES F inal Result * External Xray Report (01/29/2025) Only the most recent of2 resultswithin the time period is included. Anatomical Region Laterality Modality Radiographic Jihan ging Provider [facility] IMG XR PROCEDURES Final Result * Chlamydia trachomatis and Neisseria gonorrhoeae molecular study (07/27/2024 3:19 PM EST) [facility] Neisseria gonorrhoeae PCR Negative Negative LAB MOLECULAR DIAGNOSTICS METHOD 07/28/2024 9:36 AM EST [facility] Chlamydia trachomatis PCR Negative Negative LAB MOLECULAR DIAGNOSTICS METHOD 07/28/2024 9:36 AM EST [facility] Swab Cervix uteri structure / Unknown Non-blood Collection / Unknown 07/27/2024 3:19 PM EST 07/27/2024 3:19 PM EST Marbella Pro MD LAB MICROBIOLOGY - GENERAL ORDERABLES Final Result [facility] [address] [place] [address], * HIV Screening (11/23/2020) Pathologist [facility] HIV Screening abstracted Historical Provider HEALTH MAINTENANCE Final Result * Hepatitis C Screening (11/23/2020) [facility] Hepatitis C Screening abstracted Historical Provider HEALTH MAINTENANCE Final Result * Pap smear (04/12/2020) 04/12/2020 Narrative HISTORICAL TESTING LAB RESULTING AGENCY - 04/14/2020 12:26 PM EST [id number] THINPREP PAP, IMAGED: NEGATIVE FOR SQUAMOUS INTRAEPITHELIAL [...] Most Recently Relevant to Health Maintenance Insurance [facility] Care Teams Sign Builder Relationship Specialty Start Date End Date Rebecca Encinas MD [address] [place] [phone] PCP - General Internal Medicine 09/10/24
--- OUTSIDE RECORDS SUMMARY | 2025-03-07 09:28 | XMS_ITS | Encounter Summary ---
Author Organization [facility] Address [address] [place] [address] Care Team Providers Care Turntable Engineer Name Role Phone Jinny Sanchez MD Primary Care Provider Un available [facility], Pcp Primary Care Provider Rebecca Jimenez MD Primary Care Provider [phone] Reason for Visit * Reason Onset Date Comments refill request 10/09/2016 Encounter Details Date Type Department Care Team Description 10/09/[address] [address] Annie Kulkarni CNM refill request Social History [...] * Telephone Encounter - Keily Blanco - 10/09/2016 4:24 PM EDT WHEN WAS THE PATIENTS LAST ANNUAL OPERATIONS RESEARCH SCIENTIST EXAM? 03/06/16 Does patient have an upcoming appointment? Yes 11/04/16 (THE MEDICATION REQUESTED IS ON THE MED LIST ABOVE) Did you check the Pharmacy information above?: YES Indicate how soon the patient needs the script: BY THE END OF THE DAY Patient would like script to be: E-PRESCRIBED/FAXED TO PHARMACY Is the doctor here today?: NO Can the message wait until the doctor returns?: NO Has the patient been told that the prescription will not be filled until the end of the day? NO Payor: DEL[place] / Plan: POS $20 [facility] [place] / Product Type: POS Pqa-pax-Fzlbngd documented in this encounter Plan of Treatment Not on file documented as of this encounter Visit Diagnoses Not on filedocumented in this encounter Care Teams Turntable Engineer Relationship Specialty Start Date End Date Jinny Sanchez MD PCP - General Internal Medicine 12/01/13 [facility] PCP - General Internal Medicine 03/11/22 08/04/22 Rebecca Encinas MD [address] [place] [phone] PCP - General Internal Medicine 08/05/22 documented as of this encounter
--- OUTSIDE RECORDS SUMMARY | 2025-03-07 09:28 | XMS_ITS | Encounter Summary ---
Author Organization Formerly [facility] Address [address] [place] [address] Care Team Providers Care Communication Skills Instructor Name Role Phone Jinny Sanchez MD Primary Care Provider Un available [facility], Pcp Primary Care Provider Rebecca Jimenez MD Primary Care Provider [phone] Encounter Details Date Type Department Care Team Description 07/03/2017 Sustainable Agriculture Specialist Report Medical Records [address] [place] [address] Marixa Griffin, DO Social History Tobacco Use [...] on filedocumented in this encounter Care Teams Communication Skills Instructor Relationship Specialty Start Date End Date Jinny Sanchez MD PCP - General Internal Medicine 12/01/13 [facility], Pcp PCP - General Internal Medicine 03/11/22 08/04/22 Rebecca Encinas MD [address] [place], [place] [phone] PCP - General Internal Medicine 08/05/22 documented as of this encounter
--- OUTSIDE RECORDS SUMMARY | 2025-03-07 09:28 | XMS_ITS | Encounter Summary ---
Author Organization [facility] Address [address] [place] [address] Care Team Providers Care Java Software Architect Name Role Phone Jinny Sanchez MD Primary Care Provider Un available [facility], Pcp Primary Care Provider Rebecca Jimenez MD Primary Care Provider [phone] Encounter Details Date Type Department Care Team Description 07/23/2016 Pt. Non Urgent Medic al Question Medicine/Pediatrics - [address] [address] Bharat Jain PA-C Social History Tobacco Use [...] on filedocumented in this encounter Care Teams Java Software Architect Relationship Specialty Start Date End Date Jinny Sanchez MD PCP - General Internal Medicine 12/01/13 [facility] PCP - General Internal Medicine 03/11/22 08/04/22 Rebecca Encinas MD [address] [place] [address] PCP - General Internal Medicine 08/05/22 documented as of this encounter
--- OUTSIDE RECORDS SUMMARY | 2025-03-07 09:28 | XMS_ITS | Encounter Summary ---
Author Organization [facility] Address [address] [place] [address] Care Team Providers Care Licensed Psychologist Director Name Role Phone Jinny Sanchez MD Primary Care Provider Un available [facility], Pcp Primary Care Provider Rebecca Jimenez MD Primary Care Provider [phone] Reason for Visit * Reason Comments E-prescribe Rx Request Encounter Details Date Type Department Care Team Description 05/18/2018 [facility] [address] [place] [address] Annie Kulkarni CNM E-prescribe Rx Request Social History Tobacco Use Types Packs/Day Years [...] Telephone Encounter - Mary Cummins R.N. - 05/19/2018 8:58 AM EST Letter sent. * Telephone Encounter - Henrietta Nolasco - 05/19/2018 8:54 AM EST Patient would like script to be: E-PRESCRIBED/FAXED TO PHARMACY WHEN WAS THE PATIENT'S LAST APPOINTMENT IN ADULT MEDICINE? 05/12/18 WHEN WAS THE LAST TIME THE PATIENT SAW THEIR PCP? 02/13/17 Does patient have an upcoming appointment? (THE MEDICATION REQUESTED IS ON THE MED LIST ABOVE) All of the medications requested were on the CURRENT MEDS list Did you check the Pharmacy information above?: YES Patient wants: 90 -day supply Is this a mail order prescription request ? NO If the refill is from a FAXED refill request what is the RX # listed on the fax? N/A Patients current insurance carrier is: Payor: [facility] / Plan: POS $20 [place] / Product Type: POS [id number] documented in this encounter Plan of Treatment Not on file documented as of this encounter Visit Diagnoses Not on filedocumented in this encounter Care Teams Licensed Psychologist Director Relationship Specialty Start Date End Date Jinny Sanchez MD PCP - General Internal Medicine 12/01/13 [facility] PCP - General Internal Medicine 03/11/22 08/04/22 Rebecca Encinas MD [address] [place] [address] PCP - General Internal Medicine 08/05/22 documented as of this encounter
--- OUTSIDE RECORDS SUMMARY | 2025-03-07 09:28 | XMS_ITS | Encounter Summary ---
Author Organization [facility] Address [address] [place] [address] Care Team Providers Care Director Of Consumer Affairs Name Role Phone Jinny Sanchez MD Primary Care Provider Un available [facility], Pcp Primary Care Provider Rebecca Jimenez MD Primary Care Provider [phone] Encounter Details Date Type Department Care Team Description 11/16/2019 Hydro Station Operator Report Medical Records [address] [place] [address] Gayatri Estes Social History Tobacco Use Types Packs/Day Years [...] on filedocumented in this encounter Care Teams Director Of Consumer Affairs Relationship Specialty Start Date End Date Jinny Sanchez MD PCP - General Internal Medicine 12/01/13 [facility], Pcp PCP - General Internal Medicine 03/11/22 08/04/22 Rebecca Encinas MD [address] [place], [place] [phone] PCP - General Internal Medicine 08/05/22 documented as of this encounter
--- OUTSIDE RECORDS SUMMARY | 2025-03-07 09:28 | XMS_ITS | Encounter Summary ---
Author Organization [facility] Address [address] [place] [address] Care Team Providers Care Lead Php Developer Name Role Phone Jinny Sanchez MD Primary Care Provider Un available [facility], Pcp Primary Care Provider Rebecca Jimenez MD Primary Care Provider [phone] Reason for Visit * Reason Onset Date Comments refill request 04/15/2017 Encounter Details Date Type Department Care Team Description 04/15/[address] [address] Annie Kulkarni CNM refill request Social History [...] EST WHEN WAS THE PATIENTS LAST ANNUAL TIRE RECAPPING MACHINE OPERATOR EXAM? 03/06/16 Does patient have an upcoming [...] POS $20 [place] / Product Type: POS [id number] documented in this encounter Plan of Treatment Not on file documented as of this encounter Visit Diagnoses Not on filedocumented in this encounter Care Teams Lead Php Developer Relationship Specialty Start Date End Date Jinny Sanchez MD PCP - General Internal Medicine 12/01/13 [facility] PCP - General Internal Medicine 03/11/22 08/04/22 Rebecca Encinas MD [address] [place] [address] PCP - General Internal Medicine 08/05/22 documented as of this encounter
--- OUTSIDE RECORDS SUMMARY | 2025-03-07 09:28 | XMS_ITS | Encounter Summary ---
Author Organization [facility] Address [address] [place] [address] Care Team Providers Care Information Services Manager Name Role Phone Jinny Louis MD Primary Care Provider Un available [facility], Pcp Primary Care Provider Rebecca Jimenez MD Primary Care Provider [phone] Reason for Visit * Reason Onset Date Comments Area Relief Pilot Feedback 07/08/[address] [facility] [address] Castro Encounter Details Date Type Department Care Team Description 07/08/2017 Telephone Pediatrics - [address] [address] Jinny Louis MD Area Relief Pilot Feedback ([facility] Dr. Castro) Social History Tobacco Use [...] LOUIS Submitter Type: Provider : 1995 Referral (#[id number]) Specialty Care Review Type: Initial Certification Status : Certified in total Service Type : Medical Care Place Of Service : Other Place of Service Visits : 6 Service Date : 07/03/2017-07/03/2018 Service Providers Provider Name ID Provider Type JONATAN CASTRO NPI : [id number] Service Provider Request via fax. Referral faxed to [phone] documented in this encounter Plan of Treatment Not on file documented as of this encounter Visit Diagnoses Not on filedocumented in this encounter Care Teams Information Services Manager Relationship Specialty Start Date End Date Jinny Louis MD PCP - General Internal Medicine 12/01/13 [facility] Pcp PCP - General Internal Medicine 03/11/22 08/04/22 Rebecca Encinas MD [address] [place] [address] PCP - General Internal Medicine 08/05/22 documented as of this encounter
== END 2025-03-07 09:34 | disposition home or self-care (01) ==
LOC: HO.ENCR 08:44
PROVIDERS: PCP Internal Medicine; Visit Provider Internal Medicine Endocrinology, Diabetes & Metabolism
DX: E10.21 Type 1 diabetes mellitus with diabetic nephropathy (principal)
CPT/HCPCS: 99214

== ENCOUNTER → 2025-03-07 08:43 | Outpatient (BNVA) | payer OTHER, SELFPAY | PROVIDERS: PCP Internal Medicine; Visit Provider Internal Medicine Endocrinology, Diabetes & Metabolism | DX: E10.21 Type 1 diabetes mellitus with diabetic nephropathy (principal); Z79.4 Long term (current) use of insulin | CPT/HCPCS: 82947; 99212 ==

== ENCOUNTER 2025-04-01 11:32 | Outpatient (AMB) | payer OTHER, SELFPAY ==
--- OUTSIDE RECORDS SUMMARY | 2025-03-22 13:00 | XMS_ITS | Encounter Summary ---
Author Organization [facility] Address [address] [place] [address] Care Team Providers Care Sail Lay Out Worker Name Role Phone Rebecca Encinas MD Primary Care Provider [phone] Reason for Referral * Consultation (Routine) - Authorized Specialty Diagnoses / Procedures Referred By Contac t Referred To Contact Sleep Medicine Diagnoses Elevated platelet count Tess Sams PA [address] [place] [address] Phone: tel: fax: Pulmonology [facility] [address] [address] Phone: tel: fax: Referral ID Status Reason Start Date Expiration Date Visits Requested Visits Authorized [id number] Authorized Specialty Services Required 03/23/2026 1 1 Reason for Visit * Reason Comments Consult * Consultation (Routine) - Closed Specialty Diagnoses / Procedures Referred By Contac t Referred To Contact Hematology and Oncology Diagnoses Nausea and vomiting, unspecified vomiting type Gastroesophageal reflux disease, unspecified whether esophagitis present LLQ abdominal pain High platelet count Charity Wall PA [address] [address] Phone: tel: fax: [facility] Hematology Oncology [address] [place] [address] Phone: tel: fax:[phone] Referral ID Status Reason Start Date Expiration Date V isits Requested Visits Authorized [id number] Closed Specialty Services Required 03/08/2025 03/08/2026 1 1 Encounter Details Date Type Department Care Team (Late st Contact Info) Description 03/22/2025 1:00 PM EDT Office Visit [facility] Hematology Oncology [address] [place] [phone] Tess Sams PA [address] [place] [address] Elevated platelet count (Primary Dx) Social History Tobacco Use Types Packs/Day Years [...] AM EST documented as of this encounter Last Filed Vital Signs Vital Sign Reading Time Taken Comments Blood Pressure 154/99 03/22/2025 1:22 PM EDT Pulse 80 03/22/2025 1:22 PM EDT Temperature 36.3 C (97.4 F) 03/22/2025 1:22 PM EDT Respiratory Rate - - Oxygen Saturation 98% 03/22/2025 1:22 PM EDT Inhaled Oxygen Concentration - - Weight 93.9 kg (207 lb) 03/22/2025 1:22 PM EDT Height 157.5 cm (5' 2 ) 03/22/2025 1:22 PM EDT Body Mass Index 37.86 03/22/2025 1:22 PM EDT documented in this encounter Progress Notes * Carmen Dickinson MA - 03/22/2025 1:00 PM EDT I have reviewed the notes, assessments, and/or procedures performed this visit, and I concur with the documentation. Left message on machine to come and have blood work done before her appt documented in this encounter Plan of Treatment Upcoming Encounters Date Type Department Care Team (Late st Contact Info) Description 04/05/2025 9:30 AM EST Office Visit [facility] Hematology Oncology [address] [place] [address] Tess Sams PA [address] [place] [address] 04/07/2025 9:00 AM EST Office Visit Adult Medicine [facility] [address] [place], [place] [phone] Rebecca Encinas MD [address] [place], [place] 04/14/2025 2:30 PM EST Office Visit Orthopedic Surgery - [place] 250 175 [facility] [address] [place] [phone] Wei Sheppard DPM [address] [place] [phone] 05/16/2025 8:50 AM EST Office Visit Gastroenterology - [address] [facility] 299 [facility] [address] [place] [phone] Charity Wall PA [address] [place] [address] Scheduled Orders Name Type Priority Associated Diagnoses Orde r Schedule Erythropoietin Lab Routine Elevated platelet count 1 Occurrences starting 03/23/2025 until 03/23/2026 Lactate dehydrogenase Lab Routine Elevated platelet count 1 Occurrences starting 03/23/2025 until 03/23/2026 Scheduled Referrals Name Type Priority Associated Diagnoses Order Schedule Ambulatory referral to Sleep Medicine Outpatient Referral Routine Elevated platelet count 1 Occurrences starting 03/23/2025 until 03/23/2026 documented as of this encounter Results * JAK2 gene, V617F mutation, quantitative, molecular study (03/22/2025 2:18 PM EDT) Pathologist [facility] JAK2 (V617F) Mutation Not detected Not detected 03/25/2025 11:44 AM EDT [facility] WBC Percent with V617F Mutation <0.1 <0.1 % 03/25/2025 11:44 AM EDT [facility] Comment: This procedure uses real-time polymerase chain reaction amplification and detection to quantify the percentage of white blood cells containing the V617F (G>T at position 617) point mutation in the autoinhibitory pseudokinase domain of the JAK2 protein. The lower limit of quantitation is 0.1% (1 in 1000 cells). A Not detected result does not preclude the presence of this or another point mutation in this gene. This test uses commercial reagents that have not been approved or cleared by the FDA. The FDA has determined that such clearance or approval is not necessary. The performance characteristics of this procedure were determined by [facility] [facility]. This test is performed pursuant to a license agreement with [employer] Test performed at [facility], [address] , [place] [address] Lacie Cancino MD, PhD - Store Administrative Assistant Blood Venous blood specimen / Unknown Venipuncture / Unknown 03/22/2025 2:18 PM EDT 03/22/2025 4:39 PM EDT Tess SCHWAB LAB MOLECULAR DIAGNOSTICS ORD ERABLES Final Result [facility] [address] [place] [address] * Ferritin (03/22/2025 2:18 PM EDT) Pathologist [facility] Ferritin 46 8 - 252 ng/mL LAB CHEMISTRY METHOD 03/22/2025 5:13 PM EDT [facility] Blood Venous blood specimen / Unknown Venipuncture / Unknown 03/22/2025 2:18 PM EDT 03/22/2025 5:13 PM EDT us Tess SCHWAB LAB BLOOD ORDERABLES Final Re sult Performing Organization Address [facility]/ZIP Co de Phone Number [facility] [address] [place] [address], [place] [phone] * Iron and TIBC (03/22/2025 2:18 PM EDT) Iron 72 40 - 150 mcg/dL LAB CHEMISTRY METHOD 03/22/2025 5:14 PM EDT [facility] TIBC 257 250 - 450 mcg/dL LAB CHEMISTRY METHOD 03/22/2025 5:14 PM EDT [facility] Iron Saturation 28 15 - 50 % LAB CHEMISTRY METHOD 03/22/2025 5:14 PM EDT [facility] Blood Venous blood specimen / Unknown Venipuncture / Unknown 03/22/2025 2:18 PM EDT 03/22/2025 5:13 PM EDT Tess SCHWAB LAB BLOOD ORDERABLES Final Re sult Performing Organization Address [facility] Co de Phone Number [facility] [address] [place] [address], documented in this encounter Visit Diagnoses Diagnosis Elevated platelet count- Primary Essential thrombocythemia documented in this encounter Orders Outpatient Referral Count Last Ordered Date Fir st Ordered Date AMB REFERRAL TO HEMATOLOGY / ONCOLOGY 1 documented in this encounter Additional Health Concerns Assessment Noted Time PHQ-9 Depression Total Score: 11 025 2:47 PM EST documented as of this encounter Care Teams Sail Lay Out Worker Relationship Specialty Start Date End Date Rebecca Encinas MD [address] [place] [address] PCP - General Internal Medicine 09/10/24 documented as of this encounter
--- NOTE | 2025-04-01 11:39 | HO.NEPHOV_ITS ---
Vital Signs 04/01/25 11:42 Height 5 ft 2 in Weight 217 lb 4 oz BMI 39.7 BP 138/100 H Blood Pressure Location Rt brachial Position Sitting Pulse 97 Pulse Source Pulse Oximeter Pulse Oximetry (%) 96 Oxygen Delivery Method Room Air Intake Visit Reasons: 1mon f/u-Conf Photoflash Powder Mixer Required: No Accompanied by: Mother Allergies Sulfa (Sulfonamide Antibiotics) (SULFA (SULFONAMIDE ANTIBIOTICS)) Allergy (Unknown, Verified 04/01/25 11:41) HIVES clindamycin Allergy (Verified 04/01/25 11:41) Hives fish derived (fish) Allergy (Verified 04/01/25 11:41) Anaphylaxis HPI Comments Details: 29-year-old female with type 1 diabetes, hypertension and prior alcohol/cocaine use was seen in F/U for diabetic nephropathy. She recently had DKA and was in [facility]. She had KOSTAS at that time which resolved to baseline when she was D/Miko. She has H/O cocaine, alcohol and marijuana use. She feels improved but is concerned about her proteinuria. She has been having GI issues from gastropathy and is followed by GI. She was accompanied by her mom during this visit. She did not have any other new complaints. 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 Cocaine use Surgical History No pertinent past surgical history Family History Father Hypertension Mother Hypertension Diabetes Social History Household Members: Family Housing: House Do you presently have visiting nurse or other home services: No Alcohol intake: current Alcohol intake frequency: holidays/special occasions only Patient Tobacco Use Status: Never used Tobacco Substance Use Type: Marijuana service: No Review of Systems Const All systems reviewed & are unremarkable except as noted in HPI and below Physical Exam Vital Signs: Last Vital Signs Pulse 97 04/01/25 11:42 BP 138/100 H 04/01/25 11:42 Pulse Ox 96 04/01/25 11:42 Oxygen Delivery Method Room Air 04/01/25 11:42 BMI result Body Mass Index 39.7 Const General: comfortable and no acute distress Orientation/consciousness: patient oriented x3 HEENT Head: Yes normocephalic Mouth: Normal oral and palatal mucosa present Eyes EOM: EOMs intact bilaterally Neck Neck: Yes supple Resp Auscultation: clear to auscultation bilaterally Cardio Jugular venous distension: no JVD Rate: regular rate GI Palpation (GI): Soft to palpation Auscultation: normal bowel sounds General: Yes no CVA tenderness Back/Spine/Pelvis Back: no CVA tenderness Skin General skin exam: no rashes or lesions noted Neuro General: patient oriented x3 and moves all extremities Extrem General: Yes no pedal edema Results Reviewed Nephrology Results: Sodium, (135-145) 137 mmol/L 02/23/25 Potassium, (3.3-5.1) 5.0 mmol/L 02/23/25 Chloride, (96-108) 107 mmol/L 02/23/25 Carbon Dioxide, (22-29) 24 mmol/L 02/23/25 BUN, (9-16) 26 mg/dL H 02/23/25 Creatinine, (0.5-1.4) 0.90 mg/dL 02/23/25 Calcium, (8.4-10.2) 9.5 mg/dL Δ 02/23/25 Urine Creatinine 83.04 mg/dL 02/23/25 Protein/Creatinin Ratio, (<0.2) 8.60 H 02/23/25 Assessment & Plan Assessment & Plan (1) Hypertension: Code(s): I10 - Essential (primary) hypertension Category: Medical Qualifiers: Hypertension type: primary hypertension Qualified Code(s): I10 - Essential (primary) hypertension (2) Diabetic nephropathy: Code(s): E11.21 - Type 2 diabetes mellitus with diabetic nephropathy Category: Medical Qualifiers: Diabetes mellitus type: type 1 Qualified Code(s): E10.21 - Type 1 diabetes mellitus with diabetic nephropathy Plan Type 1 DM with diabetic nephropathy Has Diastolic dysfunction by ECHO Has significant proteinuria & retinopathy Renal function normal; Needs to abstain from cocaine If more medications are needed for BP control, will switch Amlodipine to Diltiazem -at next visit ( Diltiazem also has anti proteinuric effect) Shall follow up in office in 2 weeks; Answered all questions Orders: Orders Electrolytes 2 Weeks E10.21 - Type 1 diabetes mellitus with diabetic n ephropathy, I10 - Essential (primary) hypertension Blood Urea Nitrogen 2 Weeks E10.21 - Type 1 diabetes mellitus with diabetic nephropathy, I10 - Essential (primary) hypertension Creatinine 2 Weeks E10.21 - Type 1 diabetes mellitus with diabetic nephropathy, I10 - Essential (primary) hypertension Coding Level of Care Code Est Pt Level 4 (77883) Diagnoses Primary hypertension I10 Hypertension type: primary hypertension 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
[2025-04-01 11:42] VITALS: BP 138/100; PULSE 97; O2SAT 96; BMI 39.7
--- OUTSIDE RECORDS SUMMARY | 2025-04-01 13:10 | XMS_ITS | Encounter Summary ---
Author Organization [facility] Address [address] [place] [address] Care Team Providers Care Safety Advisor Name Role Phone Rebecca Encinas MD Primary Care Provider [phone] Encounter Details Date Type Department Care Team ([facility] Contact Info) Description 03/07/2025 Results Follow-Up Gastroenterology - [employer] 175 [facility] 175 [facility] [address] [place] [address] Charity Wall PA [address] [place] [phone] Social History Tobacco Use Types Packs/Day Years [...] as of this encounter Progress Notes * JOSSELIN Velazquez - 03/07/2025 4:47 PM EDT I will send msg. documented in this encounter Plan of Treatment Upcoming Encounters Date Type Department Care Team ([facility] Contact Info) Description 04/05/2025 9:30 AM EST Office Visit [facility] Hematology Oncology [address] [place] [phone] Tess Sams PA [address] [place] [address] 04/07/2025 9:00 AM EST Office Visit Adult Medicine [facility] [address] [place], [place] [phone] Rebecca Encinas MD [address] [place] [address] 04/14/2025 2:30 PM EST Office Visit Orthopedic Surgery - [employer] 250 175 [facility] 250 [place] [phone] Wei Sheppard, DPM [address] [place] [phone] 05/16/2025 8:50 AM EST Office Visit Gastroenterology - [address] [place] 299 [facility] [address] [place] [phone] Charity Wall PA [address] [place] [phone] documented as of this encounter Visit Diagnoses Not on filedocumented in this encounter Additional Health Concerns Assessment Noted Time PHQ-9 Depression Total Score: 11 025 2:47 PM EST documented as of this encounter Care Teams Safety Advisor Relationship Specialty Start Date End Date Rebecca Encinas MD [address] [place] [address] PCP - General Internal Medicine 09/10/24 documented as of this encounter
--- OUTSIDE RECORDS SUMMARY | 2025-04-01 13:10 | XMS_ITS | Encounter Summary ---
Author Organization [facility] Address [address] [place] [address] Care Team Providers Care Fruit And Vegetable Parer Name Role Phone Rebecca Encinas MD Primary Care Provider [phone] Encounter Details Date Type Department Care Team ([facility] st Contact Info) Description 03/12/2025 Results Follow-Up Gastroenterology - [place] 175 [facility] 175 [facility] [address] [place] [address] Charity Wall PA [address] [place] [phone] Social History Tobacco Use Types Packs/Day Years [...] encounter Progress Notes * JOSSELIN Velazquez - 03/20/2025 6:36 PM EDT I will send msg. * JOSSELIN Velazquez - 03/12/2025 7:42 PM EDT I will notify patient about the results via [employer]. * JOSSELIN Velazquez - 03/12/2025 6:41 PM EDT I will notify patient about the results via Social [employer]. documented in this encounter Plan of Treatment Upcoming Encounters Date Type Department Care Team (Late st Contact Info) Description 04/05/2025 9:30 AM EST Office Visit [facility] Hematology Oncology [address] [place] [phone] Tess Sams PA [address] [place] [address] 04/07/2025 9:00 AM EST Office Visit Adult Medicine [facility] [address] [place], [place] [phone] Rebecca Encinas MD [address] [place], [place] 04/14/2025 2:30 PM EST Office Visit Orthopedic Surgery - [place] [address] [facility] [address] [place] [phone] Wei Sheppard DPDeshaun [address] [place] [address] 05/16/2025 8:50 AM EST Office Visit Gastroenterology - [address] [facility] 299 [facility] [address] [place] [phone] Charity Wall PA [address] [place] [phone] documented as of this encounter Visit Diagnoses Not on filedocumented in this encounter Additional Health Concerns Assessment Noted Time PHQ-9 Depression Total Score: 11 025 2:47 PM EST documented as of this encounter Care Teams Fruit And Vegetable Parer Relationship Specialty Start Date End Date Rebecca Encinas MD [address] [place] [phone] PCP - General Internal Medicine 09/10/24 documented as of this encounter
--- OUTSIDE RECORDS SUMMARY | 2025-04-01 13:10 | XMS_ITS | Clinical Summary ---
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 11/14/19 21 Active loratadine (CLARITIN) 10 mg tablet Take 10 mg by mouth daily. Active CHOLECALCIFEROL, VITAMIN D3, ORAL Take 1 Tab by mouth daily. Active insulin glargine (Lantus Solostar U-100 Insulin) 100 unit/mL (3 mL) injection pen 50 units Sc at bedtime 15 mL 11 07/02/19 25 Active Additional Information Patient taking differently: 27 Units Nightly, 25 units Sc at bedtime, Reported on 03/22/2025 glucagon (Gvoke HypoPen 2-Pack) 0.5 mg/0.1 mL [...] (one) time each day. 10/13/19 25 Active amLODIPine (NORVASC) 10 mg tablet Take 1 tablet (10 mg total) by mouth 1 (one) time each day. 90 tablet 1 10/21/19 25 Active SUMAtriptan (IMITREX) 100 mg tablet [...] CAPSULE. 90 capsule 3 02/08/20 25 Active albuterol HFA (PROAIR HFA ; PROVENTIL HFA ; VENTOLIN HFA) 90 mcg/actuation inhalerIndications :Mild intermittent asthma without complication Inhale 2 puffs by mouth every 4 (four) hours if needed for wheezing. 6.7 g 1 03/02/20 25 Active ondansetron ODT (ZOFRAN-ODT) 8 mg disintegrating tablet Dissolve 1 tablet (8 mg total) on top of the tongue every 8 (eight) hours if needed for nausea or vomiting. 30 tablet 1 03/07/20 25 Active haloperidoL (HALDOL) 0.5 mg tablet Take 1 tablet (0.5 mg total) by mouth 3 (three) times a day. 02/27/20 25 Active LORazepam (ATIVAN) 0.5 mg tablet Take 1 tablet (0.5 mg total) by mouth every 8 (eight) hours if needed for anxiety. 02/27/20 25 Active atorvastatin (LIPITOR) 10 mg tablet Take 1 tablet (10 mg total) by mouth 1 (one) time each day in the evening. 02/25/20 25 Active butalbital-acetami nophen-caffeine (FIORICET, ESGIC) 50-325-40 mg per tablet Take 1 tablet by mouth 3 (three) times a day if needed for migraine. 02/27/20 25 Active metoclopramide (REGLAN) 5 mg tablet Take 1 tablet (5 mg total) by mouth 3 (three) times a day before meals. 90 each 3 03/08/20 25 026 Active metoprolol succinate (TOPROL-XL) 25 mg 24 hr tablet Take 1 tablet (25 mg total) by mouth 1 (one) time each day. Do not crush or chew. 90 each 03/10/20 25 026 Active hydrOXYzine HCL (ATARAX) 25 mg tablet Take 1 tablet (25 mg total) by mouth every 8 (eight) hours if needed for anxiety. 90 tablet 03/10/20 25 Active hydrOXYzine HCL (ATARAX) 25 mg tablet 1 TABLET BY MOUTH EVERY 6 HOURS,X5 DAYS NEEDED FOR ANXIETY 05/28/20 24 025 Discontin ued(Reord er) ondansetron ODT (ZOFRAN-ODT) 8 mg disintegrating tablet DISSOLVE 1 TABLET ON TOP OF TONGUE EVERY 8 HOURS NEEDED FOR NAUSEA OR VOMITING FOR UP TO 7 DAYS 20 tablet 12/30/19 25 025 Discontin ued(Reord er) Active Problems Problem Noted Date Diagnosed Date [...] 1 diabetes mellitus wit h ophthalmic complication ([facility] V24, [facility] V28) 06/25/2024 Depression, major, recurrent , moderate ([facility] V24, [facility] V28) 05/11/2024 Obesity 05/11/2024 Tobacco use disorder [...] Encounters Date Type Department Care Team Description 03/22/2025 1:00 PM EDT Office Visit [facility] Hematology Oncology [address] [place] [phone] Tess Sams PA Elevated platelet count (Primary Dx) 03/17/2025 8:22 AM EDT - 03/17/2025 11:59 PM EDT Hospital Encounter [facility] Nuclear Medicine [address] [place] [phone] Nausea and vomiting, unspecified vomiting type; Gastroesophageal reflux disease, unspecified whether esophagitis present; LLQ abdominal pain Discharge Disposition: Home or Self Care 03/12/2025 Results Follow-Up Gastroenterology - [place] 175 [facility] 175 [facility] [address] [place] [phone] Charity Wall PA 03/10/2025 2:13 PM EDT - 03/10/2025 11:59 PM EDT Hospital Encounter [facility] CT Scan [address] [place] [address] Nausea and vomiting, unspecified vomiting type; Gastroesophageal reflux disease, unspecified whether esophagitis present; LLQ abdominal pain Discharge Disposition: Home or Self Care 03/10/2025 9:00 AM EDT Office Visit Adult [address] [phone] Rebecca Encinas MD Hospital discharge follow-up (Primary Dx); 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 [address] [address] Charity Wall PA Nausea and vomiting, unspecified vomiting type (Primary Dx); Gastroesophageal reflux disease, unspecified whether esophagitis present; LLQ abdominal pain; High platelet count 03/07/2025 [facility] [address] [phone] Charity Wall PA 03/07[facility] [address] [phone] Charity Wall PA 02/28/2025 Telephone Adult [address] [phone] Rebecca Encinas MD 02/23/2025 9:46 AM EDT - 02/23/2025 11:59 PM EDT Hospital Encounter [facility] MRI [address] [place] [address] Gastroesophageal reflux disease, unspecified whether esophagitis present; Nausea and vomiting, unspecified vomiting type Discharge Disposition: Home or Self Care 02/17/2025 Telephone Adult [address] [phone] Rebecca Encinas MD 02/01/2025 Telephone Gastroenterology - [place] 175 [facility] 175 [facility] [address] [place] [address] Charity Wall PA from Last 3 Months Immunizations Immunization Administration Dates Next Due DTaP (Infanrix) 6wks to less than 7yo ,09/03/1999,05/04/1998,1997,1997 [id number] (Pentacel) 2mo to less than 5yo 09/03/1999,05/04/1998,03/01/1998,1997 [...] ENDOSCOPY 2007 PROCEDURE: UPPER GI ENDOSCOPY/EXAM; COMMENT: [facility] Medical History Medical History Date Comments Type 1 diabetes mellitus (CM S/HCC V24, CMS/HCC V28) DX:Type 1 diabetes mellitus (HCC); COMMENT: [facility] Endocrinology. Dr. Griffin. Dx age 8 [...] F) 03/22/2025 1:22 PM EDT Respiratory Rate 14 03/10/2025 9:24 AM EDT Oxygen Saturation 98% 03/22/2025 1:22 PM EDT Inhaled Oxygen Concentration - - Weight 93.9 kg (207 lb) 03/22/2025 1:22 PM EDT Height 157.5 cm (5' 2 ) 03/22/2025 1:22 PM EDT Body Mass Index 37.86 03/22/2025 1:22 PM EDT Plan of Treatment Upcoming Encounters Date Type Department Care Team (Late st Contact Info) Description 04/05/2025 9:30 AM EST Office Visit [facility] Hematology Oncology [address] [place] [phone] Tess Sams PA [address] [place] [address] 04/07/2025 9:00 AM EST Office Visit Adult Medicine [facility] [address] [place] [address] Rebecca Encinas MD [address] [place], [place] 04/14/2025 2:30 PM EST Office Visit Orthopedic Surgery - [place] [address] [facility] [address] [place] [phone] Wei Sheppard, DPM [address] [place] [phone] 05/16/2025 8:50 AM EST Office Visit Gastroenterology - [address] [facility] 299 [facility] [address] [place] [phone] Charity Wall PA [address] [place] [phone] Health Maintenance Due Date Last Done Comments Pneumococcal Vaccine: Pediatrics (0 to 5 Years) and At-Risk Patients (6 to 49 Years) (2 of 2 - PPSV23, PCV20, or PCV21) 08/06/2007 06/11/2007 Diabetes: Annual Foot Exam 09/02/2007 DTaP,Tdap,and Td Vaccines (7 - Td or Tdap) 10/04/2018 10/04/2008, 02/16/2003, 09/03/1999, Additional history exists Social Influencers of Health Screening 05/05/2022 Cervical Cancer Screening: Pap Smear 04/12/2023 04/12/2020, 04/12/2020, 04/12/2020 HPV Vaccines (1 - 3-dose SCDM series) 2024 COVID-19 Vaccine ( season) 2025 04/30/2021, 04/09/2021 Influenza Vaccine (#1) 2025 , 03/11/2013, 05/04/2012, Additional history exists Diabetes: Blood Sugar Control Test (HGBA1C) 08/01/2025 02/01/2025, 06/25/2024, 04/05/2015 Diabetes: Annual Retina Eye Exam 02/21/2026 02/21/2025 Diabetes: Annual GFR (Glomerular Filtration Rate) 03/08/2026 03/08/2025, 02/01/2025, 08/19/2024, Additional history exists Hypertension/CHF/CAD Annual BMP Blood Test 03/08/2026 03/08/2025, 02/01/2025, 08/19/2024, Additional history exists Diabetes: Annual Urine Albumin-Creatinine Ratio (uACR) 03/10/2026 03/10/2025 Cholesterol Screening (Lipid Panel) 02/01/2030 02/01/2025 RSV [...] Diagnosis Comments CBC WITH AUTO DIFFERENTIAL Routine 03/22/2025 2:18 PM EDT Elevated platelet count JAK2 GENE, V617F MUTATION, QUANTITATIVE, MOLECULAR STUDY Routine 03/22/2025 2:18 PM EDT Elevated platelet count FERRITIN Routine 03/22/2025 2:18 PM EDT Elevated platelet count IRON AND TIBC Routine 03/22/2025 2:18 PM EDT Elevated platelet count CBC AND DIFFERENTIAL Routine 03/22/2025 2:18 PM EDT Elevated platelet count NM GASTRIC EMPTYING STUDY STAT 03/17/2025 2:16 PM EDT Nausea and vomiting, unspecified vomiting type Gastroesophageal reflux disease, unspecified whether esophagitis present LLQ abdominal pain CT ABDOMEN PELVIS W CONTRAST STAT 03/10/2025 5:12 PM EDT Nausea and vomiting, unspecified vomiting type Gastroesophageal reflux disease, unspecified whether esophagitis present LLQ abdominal pain BARBITURATE, QUANTITATIVE, URINE Routine 03/10/2025 10:23 AM EDT Cocaine use disorder in remission THC, URINE, CONFIRMATION Routine 03/10/2025 10:23 AM EDT Cocaine use disorder in remission DRUG ABUSE SCREEN EXPANDED WITH REFLEX CONFIRMATION, URINE Routine 03/10/2025 10:23 AM EDT Cocaine use disorder in remission MICROALBUMIN CREATININE URINE RATIO Routine 03/10/2025 10:23 AM EDT Type 1 diabetes mellitus without complications (CMS/HCC V24, CMS/HCC V28) RENAL FUNCTION PANEL Routine 03/08/2025 10:22 AM EDT Nausea and vomiting, unspecified vomiting type Gastroesophageal reflux disease, unspecified whether esophagitis present LLQ abdominal pain MR ABDOMEN WO AND W CONTRAST Routine [...] Recently Relevant to Health Maintenance Results * JAK2 gene, V617F mutation, quantitative, molecular study (03/22/2025 2:18 PM EDT) JAK2 (V617F) Mutation Not detected Not detected 03/25/2025 11:44 AM EDT [facility] Percent with V617F Mutation <0.1 <0.1 % 03/25/2025 11:44 AM EDT [facility]ERY [facility] Comment: This procedure uses real-time polymerase chain [...] characteristics of this procedure were determined by [facility]. This test is performed pursuant to a license agreement with [employer] Test performed at [facility], [address] , [place] [address] Lacie Cancino MD, PhD - Vascular Sonographer Blood Venous blood specimen / Unknown Venipuncture / Unknown 03/22/2025 2:18 PM EDT 03/22/2025 4:39 PM EDT Tess SCHWAB LAB MOLECULAR DIAGNOSTICS ORD ERABLES Final Result [facility] [address] [place] [address] * (ABNORMAL) CBC auto differential (03/22/2025 2:18 PM EDT) Only the most recent of2 resultswithin the time period is included. WBC 10.4 4.8 - 10.8 K/mcL LAB HEMETOLOGY METHOD 03/22/2025 4:51 PM EDT [facility] RBC 4.60 3.80 - 4.80 M/mcL LAB HEMETOLOGY METHOD 03/22/2025 4:51 PM EDT [facility] Hemoglobin 12.9 11.5 - 16.0 g/dL LAB HEMETOLOGY METHOD 03/22/2025 4:51 PM EDT [facility] Hematocrit 39.8 35.0 - 47.0 % LAB HEMETOLOGY METHOD 03/22/2025 4:51 PM EDT [facility] MCV 86.3 79.0 - 98.0 FL LAB HEMETOLOGY METHOD 03/22/2025 4:51 PM EDT [facility] MCH 28.0 27.0 - 32.0 pcg LAB HEMETOLOGY METHOD 03/22/2025 4:51 PM EDT [facility] MCHC 32.4 32.0 - 37.0 g/dL LAB HEMETOLOGY METHOD 03/22/2025 4:51 PM EDT [facility] RDW 11.9 11.0 - 15.0 % LAB HEMETOLOGY METHOD 03/22[facility]2025 4:[facility] Plate[facility] 549(H) 130 - 400 K/mcL LAB HEMETOLOGY METHOD 03/22/2025 4:51 PM EDT [facility] MPV 9.0 7.0 - 11.0 FL LAB HEMETOLOGY METHOD 03/22/2025 4:51 PM EDT [facility] NRBC 0.0 <1.0 % LAB HEMETOLOGY METHOD 03/22/2025 4:51 [facility] NRBC Absolute 0.00 <0.10 K/mcL LAB HEMETOLOGY METHOD 03/22/2025 4:51 PM EDT [facility] Neutrophils Relative 58.5 % LAB HEMETOLOGY METHOD 03/22/2025 4:51 PM EDT [facility] Lymphocytes Relative 33.2 % LAB HEMETOLOGY METHOD 03/22/2025 4:51 PM EDT [facility] Monocytes Relative 5.7 % LAB HEMETOLOGY METHOD 03/22/2025 4:51 PM EDT [facility] Eosinophils Relative 1.8 % LAB HEMETOLOGY METHOD 03/22/2025 4:51 PM EDT [facility] Basophils Relative 0.5 % LAB HEMETOLOGY METHOD 03/22/2025 4:51 PM EDT [facility] Immature Granulocytes Relative 0.3 % LAB HEMETOLOGY METHOD 03/22/2025 4:51 PM EDT [facility] Neutrophils Absolute 6.08 1.50 - 7.00 K/mcL LAB HEMETOLOGY METHOD 03/22/2025 4:51 PM EDT [facility] Lymphocytes Absolute 3.45 1.00 - 5.00 K/mcL LAB HEMETOLOGY METHOD 03/22/2025 4:51 PM EDT [facility] Monocytes Absolute 0.59 0.20 - 1.00 K/mcL LAB HEMETOLOGY METHOD 03/22/2025 4:51 PM EDT [facility] Eosinophils Absolute 0.19 0.00 - 0.50 K/mcL LAB HEMETOLOGY METHOD 03/22/2025 4:51 PM EDT [facility] Basophils Absolute 0.05 0.00 - 0.20 K/mcL LAB HEMETOLOGY METHOD 03/22/2025 4:51 PM EDT [facility] Immature Granulocytes Absolute 0.03 0.00 - 0.03 K/mcL LAB HEMETOLOGY METHOD 03/22/2025 4:51 PM EDT [facility] Blood Venous blood specimen / Unknown Venipuncture / Unknown 03/22/2025 2:18 PM EDT 03/22/2025 4:39 PM EDT us Tess SCHWAB LAB BLOOD ORDERABLES Final Re sult [facility] [address] [place] [address], * Iron and TIBC (03/22/2025 2:18 PM EDT) [facility] Iron 72 40 - 150 mcg/dL LAB CHEMISTRY METHOD 03/22/2025 5:14 PM EDT [facility] TIBC 257 250 - 450 mcg/dL LAB CHEMISTRY METHOD 03/22/2025 5:14 PM EDT [facility] Iron Saturation 28 15 - 50 % LAB CHEMISTRY METHOD 03/22/2025 5:14 PM EDT [facility] Blood Venous blood specimen / Unknown Venipuncture / Unknown 03/22/2025 2:18 PM EDT 03/22/2025 5:13 PM EDT us Tess SCHWAB LAB BLOOD ORDERABLES Final Re sult Performing Organization Address [facility]/ZIP Co de Phone Number [facility] [address] [place] [address], [place] [phone] * Ferritin (03/22/2025 2:18 PM EDT) Ferritin 46 8 - 252 ng/mL LAB CHEMISTRY METHOD 03/22/2025 5:13 PM EDT [facility] Blood Venous blood specimen / Unknown Venipuncture / Unknown 03/22/2025 2:18 PM EDT 03/22/2025 5:13 PM EDT us Tess SCHWAB LAB BLOOD ORDERABLES Final Re sult Performing Organization Address City/[facility]/ZIP Co de Phone Number [facility] [address] [place] [address], [place] [phone] * NM Gastric Emptying Study (03/17/2025 2:16 PM EDT) Anatomical Region Laterality Modality Body Nuclear Medicine 03/17/2025 3:15 PM EDT Impressions 03/17/2025 3:16 PM EDT Normal gastric emptying. -------- FINAL REPORT -------- Dictated By: Nena Cormier Dictated Date: 03/17/2025 15:15 ET Assigned Physician: Nena Cormier Reviewed and Electronically Signed By: Nena Cormier Signed Date: 03/17/2025 15:16 ET Workstation ID: [id number] Transcribed By: Self Edit Transcribed Date: 03/17/2025 15:15 ET Narrative 03/17/2025 3:16 PM EDT HISTORY: Nausea and abdominal pain. FINDINGS: Routine radionuclide gastric emptying study was performed following administration of 0.9 mCi of Tc99m sulfur colloid prepared in egg for solid food evaluation. Anterior and posterior imaging obtained. 1 hour retention 80%. Normal <90% 2 hour retention 51%. Normal <60% 3 hour retention 28%. Normal <30% 4 hour retention 13%. Normal <10% Procedure Note Nena Cormier MD - 03/17/2025 HISTORY: Nausea and abdominal pain. FINDINGS: Routine radionuclide gastric emptying study was performedfollowing administration of 0.9 mCi of Tc99m sulfur colloid prepared inegg for solid food evaluation. Anterior and posterior imaging obtained. 1 hour retention 80%. Normal <90% 2 hour retention 51%. Normal <60% 3 hour retention 28%. Normal <30% 4 hour retention 13%. Normal <10% IMPRESSION: Normal gastric emptying. -------- FINAL REPORT -------- Dictated By: Nena Cormier Dictated Date: 03/17/2025 15:15 ET Assigned Physician: Nena Cormier Reviewed and Electronically Signed By: Nena Cormier Signed Date: 03/17/2025 15:16 ET Workstation ID: [id number] Transcribed By: Self Edit Transcribed Date: 03/17/2025 15:15 ET us Charity SCHWAB IMG NM PROCEDURES Final Resul t * CT Abdomen Pelvis w Contrast (03/10/2025 5:12 PM EDT) Anatomical Region Laterality Modality Body Computed Tomogra phy 03/10/2025 5:47 PM EDT Impressions 03/10/2025 5:47 PM EDT 1. No acute findings. 2. Small right hepatic lobe lesion only vaguely visualized on the CT was previously evaluated with MRI. 3. 8 mm somewhat irregular right lung base nodule unchanged from previous CT dated 08/09/2024. This document has been electronically signed by: Hodan Pickett MD on 03/10/2025 17:47:11 Narrative 03/10/2025 5:47 PM EDT INDICATION: LLQ abd pain, N/V, easy bruising CT abdomen and pelvis with contrast Comparison: MR/KO/WI/SR - MR ABD WO AND W CONTRAST - 02/23/25 10:[address]/KO/WI - CT ABDOMEN OUTSIDE EXAMINATION - 08/09/24 14:42 EDT Findings: No consolidation or effusion. 8 mm somewhat irregular nodule in the right lung base seen on image 20/187 series 3, unchanged from previous study. The gallbladder is unremarkable. No biliary ductal dilatation. Posterior right hepatic lobe mass is only vaguely visualized and was further evaluated on previous MRI. Otherwise, the liver is unremarkable. The spleen, pancreas, adrenal glands and kidneys are unremarkable. No ureteral stones and no hydronephrosis or hydroureter. No bowel obstruction, pneumoperitoneum, or pneumatosis. No free fluid or loculated fluid collection. Normal appendix. IUD in the uterus. Urinary bladder is normal. Normal size abdominal aorta. No acute fracture. Procedure Note Hodan Pickett MD - 03/10/2025 INDICATION: LLQ abd pain, N/V, easy bruising CT abdomen and pelvis with contrast Comparison: MR/KO/WI/SR - MR ABD WO AND W CONTRAST - 02/23/25 10:[address]/KO/WI - CT ABDOMEN OUTSIDE EXAMINATION - 08/09/24 14:42 EDT Findings: No consolidation or effusion. 8 mm somewhat irregular nodule in the right lung base seen on image20/187 series 3, unchanged from previous study. The gallbladder is unremarkable. No biliary ductal dilatation. Posterior right hepatic lobe mass is only vaguely visualized and was further evaluated on previous MRI. Otherwise, the liver is unremarkable. The spleen, pancreas, adrenal glands and kidneys are unremarkable. No ureteral stones and no hydronephrosis or hydroureter. No bowel obstruction, pneumoperitoneum, or pneumatosis. No free fluid or loculated fluid collection. Normal appendix. IUD in the uterus. Urinary bladder is normal. Normal size abdominalaorta. No acute fracture. IMPRESSION: 1. No acute findings. 2. Small right hepatic lobe lesion only vaguely visualized on the CT was previously evaluated with MRI. 3. 8 mm somewhat irregular right lung base nodule unchanged fromprevious CT dated 08/09/2024. This document has been electronically signed by: Hodan Pickett MD on 03/10/2025 17:47:[address] PROCEDURES Final Resul t * (ABNORMAL) Drug abuse screen expanded with reflex confirmation, urine (03/10/2025 10:23 AM EDT) Amphetamine Screen, Ur Negative Negative LAB CHEMISTRY METHOD 1:54 PM [facility] Comment:Certain OTC medicati ons containing ephedrine, phenylephrine, pseudoephedrine and phenylpropanolamine can cause false positive results. Barbiturate Screen, Ur Positive(A ) Negative LAB CHEMISTRY METHOD 5 1:[facility] Benzodiazepine Screen, Ur Negative Negative LAB CHEMISTRY METHOD 1:54 PM [facility] Cocaine Screen, Ur Negative Negative LAB CHEMISTRY METHOD 5 1:54 PM [facility] Opiate Screen, Ur Negative Negative LAB CHEMISTRY METHOD 1:54 PM [facility] Cannabinoid (THC) Screen, Ur Positive(A ) Negative LAB CHEMISTRY METHOD 5 1:54 PM [facility] Comment:Specimens from patie nts taking pantoprazole sodium (Protonix) have been shown to produce false positive results. Fentanyl, Ur Negative Negative LAB CHEMISTRY METHOD 5 1:54 PM [facility] Oxycodone Screen, Ur Negative Negative LAB CHEMISTRY METHOD 5 1:54 PM [facility] Urine Urine specimen obtained by clean catch procedure / Unknown Non-blood Collection / Unknown 03/10/2025 10:23 AM EDT 03/10/2025 10:23 AM EDT Narrative [facility] - 03/10/2025 1:54 PM EDT Assay cutoffs: Amphetamines 1000 ng/mL Barbiturates 200 ng/mL Benzodiazepines 200 ng/mL Cocaine 300 ng/mL Fentanyl 1 ng/mL Opiates 300 ng/mL Oxycodone 100 ng/mL THC 50 ng/mL Semi-quantitative assay for screening purposes only. Unconfirmed screening result should not be used for non-medical purposes. *POSITIVE RESULTS ARE AUTOMATICALLY SENT FOR ALTERNATE METHOD CONFIRMATION* us Rebecca Encinas MD LAB URINE ORDERABLES Final Resul t Performing Organization Address City/[facility]/ZIP Co de Phone Number [facility] [address] [place] [address], [place] [phone] * (ABNORMAL) Microalbumin creatinine urine ratio (03/10/2025 10:23 AM EDT) Creatinine, Urine 44.0 mg/dL LAB CHEMISTRY METHOD 03/10/2025 1:57 PM EDT [facility] Microalb, Ur 2,260.0(H ) 0.0 - 29.0 mg/L LAB CHEMISTRY METHOD 03/10/2025 1:57 PM EDT [facility] Microalb/Crea t Ratio 5,136(H) <30 mg/g creat LAB CHEMISTRY METHOD 03/10/2025 1:57 PM EDT [facility] Urine Urine specimen obtained by clean catch procedure / Unknown Non-blood Collection / Unknown 03/10/2025 10:23 AM EDT 03/10/2025 10:23 AM EDT us Rebecca Encinas MD LAB URINE ORDERABLES Final Resul t Performing Organization Address City/[facility]/ZIP Co de Phone Number [facility] [address] [place] [address], [place] [phone] * (ABNORMAL) THC, urine, confirmation (03/10/2025 10:23 AM EDT) Tetrahydrocannabinoid (THC) 742(H) Negative ng/mL 03/14/2025 11:04 PM EDT [facility] Tetrahydrocannabinoid (THC)/Creatinine Ratio 1726 11:04 PM EDT [facility] Creatinine 43 20 - 250 mg/dL 03/14/2025 11:04 PM EDT [facility] Adulterants Negative 03/14/2025 11:04 PM EDT [facility] Comment: The urine THC/creatinine ratio is the best monitor to determine the possibility of continued drug usage. With abstinence, the ratio should decrease within one week by a factor of two or more. Confirmation (GC/MS) Decision Limit THC ([id number]) 3 ng/mL Adulterant Decision Limit: General Oxidants 200 ug/mL The adulterant assay tests for General Oxidants, including Chromates and Nitrites. Adulterants are substances either ingested or added directly to a urine specimen to prevent the detection of drug use. If applicable, any drug confirmation testing reported here was developed and the performance characteristics determined by [facility]. This confirmation testing has not been cleared or approved by the FDA. The laboratory is regulated under CLIA as qualified to perform high-complexity testing. This test is used for patient testing purposes. It should not be regarded as investigational or for research. Test performed at [facility], [address] , [place] [address] Lacie Cancino MD, PhD - Vascular Sonographer Urine Urine specimen obtained by clean catch procedure / Unknown Non-blood Collection / Unknown 03/10/2025 10:23 AM EDT 03/10/2025 1:54 PM EDT us Rebecca Encinas MD LAB URINE ORDERABLES Final Resul t [facility] [address] [place] [address] * (ABNORMAL) Barbiturate, quantitative, urine (03/10/2025 10:23 AM EDT) Amobarbital Confirm, Urine Negative Negative ng/mL 03/14/2025 11:04 PM EDT [facility] Butabarbital Confirm, Urine Negative Negative ng/mL 03/14/2025 11:04 PM EDT [facility] Butalbital Confirm, Urine 108(H) Negative ng/mL 03/14/2025 11:04 PM EDT [facility] Pentobarbital Confirm, Urine Negative Negative ng/mL 03/14/2025 11:04 PM EDT [facility] Phenobarbital Confirm, Urine Negative Negative ng/mL 03/14/2025 11:04 PM EDT [facility] Secobarbital Confirm, Urine Negative Negative ng/mL 03/14/2025 11:04 PM EDT [facility] Creatinine 43 20 - 250 mg/dL 03/14/2025 11:04 PM EDT [facility] Adulterants Negative 03/14/2025 11:04 PM EDT [facility] Comment: Confirmation (GC/MS) Decision Limits Amobarbital 40 ng/mL Butabarbital 40 ng/mL Butalbital 40 ng/mL Pentobarbital 40 ng/mL Phenobarbital 200 ng/mL Secobarbital 40 ng/mL Adulterant Decision Limit: General Oxidants 200 ug/mL The adulterant assay tests for General Oxidants, including Chromates and Nitrites. Adulterants are substances either ingested or added directly to a urine specimen to prevent the detection of drug use. If applicable, any drug confirmation testing reported here was developed and the performance characteristics determined by [facility]. This confirmation testing has not been cleared or approved by the FDA. The laboratory is regulated under CLIA as qualified to perform high-complexity testing. This test is used for patient testing purposes. It should not be regarded as investigational or for research. Test performed at [facility], [address], [place] [address] Lacie Cancino MD, PhD - Vascular Sonographer Urine Urine specimen obtained by clean catch procedure / Unknown Non-blood Collection / Unknown 03/10/2025 10:23 AM EDT 03/10/2025 1:54 PM EDT us Rebecca Encinas MD LAB URINE ORDERABLES Final Resul t [address] [place] [address] [place] [address] * (ABNORMAL) Renal function panel (03/08/2025 10:22 AM EDT) Sodium 138 133 - 145 mmol/L LAB CHEMISTRY METHOD 03/08/2025 2:46 PM EDT [facility] Potassium 5.5 3.5 - 5.5 mmol/L LAB CHEMISTRY METHOD 03/08/2025 2:46 PM [facility] Chloride 107 96 - 110 mmol/L LAB CHEMISTRY METHOD 03/08/2025 2:46 PM [facility] CO2 23 21 - 32 mmol/L LAB CHEMISTRY METHOD 03/08/2025 2:46 PM [facility] Anion Gap 8 3 - 11 LAB CHEMISTRY METHOD 03/08/2025 2:46 PM [facility] Glucose 258(H) 70 - 100 mg/dL LAB CHEMISTRY METHOD 03/08/2025 2:46 PM [facility] BUN 22 5 - 25 mg/dL LAB CHEMISTRY METHOD 03/08/2025 2:46 PM [facility] Creatinine 1.02 0.50 - 1.10 mg/dL LAB CHEMISTRY METHOD 03/08/2025 2:46 PM [facility] eGFR 77 >=60 mL/min/1. 73m2 LAB CHEMISTRY METHOD 03/08/2025 2:46 PM [facility] Comment:Calculation based on the Chronic Kidney Disease Epidemiology Collaboration (CKD-EPI) equation refit without adjustment for race. BUN/Creatinine Ratio 21.6 LAB CHEMISTRY METHOD 03/08/2025 2:46 PM [facility] Albumin 2.9(L) 3.2 - 5.0 g/dL LAB CHEMISTRY METHOD 03/08/2025 2:46 PM [facility] Calcium 9.1 8.5 - 10.5 mg/dL LAB CHEMISTRY METHOD 03/08/2025 2:46 PM EDT [facility] Phosphorus 3.9 2.5 - 4.5 mg/dL LAB CHEMISTRY METHOD 03/08/2025 2:46 PM EDT [facility] Blood Venous blood specimen / Unknown Venipuncture / Unknown 03/08/2025 10:22 AM EDT 03/08/2025 10:23 AM EDT us Charity SCHWAB LAB BLOOD ORDERABLES Final Re sult [facility] [address] [place] [address], [place] [phone] * MR Abdomen wo and w Contrast (02/23/2025 11:00 AM EDT) Anatomical Region Laterality Modality Body Magnetic Resonan ce 03/05/2025 9:27 AM EDT Impressions 03/05/2025 10:17 AM EDT Stable arterially enhancing lesion with central nonenhancing scar in the right posterior liver, most likely benign focal nodular hyperplasia rather than adenoma. -------- FINAL REPORT -------- Dictated By: ONI WADE Dictated Date: 03/05/2025 09:27 ET Assigned Physician: ONI WADE Reviewed and Electronically Signed By: ONI WADE Signed Date: 03/05/2025 10:17 ET Workstation ID: [id number] Transcribed By: Self Edit Transcribed Date: 03/05/2025 [...] are normal. Bones are normal. Procedure Note Oni Wade MD - 03/05/2025 PROCEDURE: Abdominal MRI INDICATION: [...] adenoma. -------- FINAL REPORT -------- Dictated By: ONI WADE Dictated Date: 03/05/2025 09:27 ET Assigned Physician: ONI WADE Reviewed and Electronically Signed By: ONI WADE Signed Date: 03/05/2025 10:17 ET Workstation ID: [id number] Transcribed By: Self Edit Transcribed Date: 03/05/2025 09:27 ET us Charity SCHWAB IMG MRI PROCEDURES Final Resu lt * External clinical lab (02/23/2025) us Provider [facility] LAB BLOOD ORDERABLES Fin al Result * External Diabetic Retina Eye Exam Report (02/21/2025) Anatomical Region Laterality Modality Ultrasound us Provider [facility] IMG US PROCEDURES Final Result * (ABNORMAL) Lipid panel with reflex to direct LDL (02/01/2025 12:49 PM EDT) Cholesterol 207(H) 0 - 200 mg/dL LAB CHEMISTRY METHOD 02/01/2025 6:51 PM EDT [facility] Triglycerides 44 0 - 150 mg/dL LAB CHEMISTRY METHOD 02/01/2025 6:51 PM EDT [facility] HDL 100 >=40 mg/dL LAB CHEMISTRY METHOD 02/01/2025 6:51 PM EDT [facility] LDL Calculated 98 0 - 100 mg/dL LAB CHEMISTRY METHOD 02/01/2025 6:51 PM EDT [facility] Comment:Estimated LDL Calcul ated using equation: Total cholesterol - HDL cholesterol - (Triglycerides/5) VLDL Cholesterol Miles 8.8 mg/dL LAB CHEMISTRY METHOD 02/01/2025 6:51 PM EDT [facility] Non HDL Chol. (LDL+VLDL) 107 <145 mg/dL LAB CHEMISTRY METHOD 02/01/2025 6:51 PM EDT [facility] Chol/HDL Ratio 2.1 0.0 - 4.4 LAB CHEMISTRY METHOD 02/01/2025 6:51 PM EDT [facility] Blood Venous blood specimen / Unknown Venipuncture / Unknown 02/01/2025 12:49 PM EDT 02/01/2025 12:49 PM EDT us Rebecca Encinas MD LAB BLOOD ORDERABLES Final Resul t [facility] [address] [place] [address], [place] [phone] * (ABNORMAL) Hemoglobin A1c (02/01/2025 12:49 PM EDT) [facility] Hemoglobin A1C 8.5(H) <6.5 % LAB CHEMISTRY METHOD 02/01/2025 10:19 PM EDT [facility] Mean Bld Glu Estim. 197 mg/dL LAB CHEMISTRY METHOD 02/01/2025 10:19 PM EDT [facility] Blood Venous blood specimen / Unknown Venipuncture / Unknown 02/01/2025 12:49 PM EDT 02/01/2025 12:49 PM EDT us Rebecca Encinas MD LAB BLOOD ORDERABLES Final Resul t [facility] [address] [place] [address], * (ABNORMAL) Comprehensive metabolic panel (02/01/2025 12:49 PM EDT) [facility] Sodium 137 133 - 145 mmol/L LAB CHEMISTRY METHOD 02/01/2025 6:46 PM T [facility] Potassium 4.8 3.5 - 5.5 mmol/L LAB CHEMISTRY METHOD 02/01/2025 6:46 PM T [facility] Chloride 107 96 - 110 mmol/L LAB CHEMISTRY METHOD 02/01/2025 6:46 PM T [facility] CO2 22 21 - 32 mmol/L LAB CHEMISTRY METHOD 02/01/2025 6:46 PM T [facility] Anion Gap 8 3 - 11 LAB CHEMISTRY METHOD 02/01/2025 6:46 PM [facility] Glucose 216(H) 70 - 100 mg/dL LAB CHEMISTRY METHOD 02/01/2025 6:46 PM T [facility] BUN 30(H) 5 - 25 mg/dL LAB CHEMISTRY METHOD 02/01/2025 6:46 PM [facility] Creatinine 0.93 0.50 - 1.10 mg/dL LAB CHEMISTRY METHOD 02/01/2025 6:46 PM [facility] eGFR 87 >=60 mL/min/1. 73m2 LAB CHEMISTRY METHOD 02/01/2025 6:46 PM [facility] Comment:Calculation based on the Chronic Kidney Disease Epidemiology Collaboration (CKD-EPI) equation refit without adjustment for race. BUN/Creatinine Ratio 32.3 LAB CHEMISTRY METHOD 02/01/2025 6:46 PM [facility] Calcium 8.8 8.5 - 10.5 mg/dL LAB CHEMISTRY METHOD 02/01/2025 6:46 PM [facility] AST (SGOT) 15 10 - 42 unit/L LAB CHEMISTRY METHOD 02/01/2025 6:46 PM [facility] ALT (SGPT) 14 10 - 60 unit/L LAB CHEMISTRY METHOD 02/01/2025 6:46 PM [facility] Alkaline Phosphatase 95 42 - 121 unit/L LAB CHEMISTRY METHOD 02/01/2025 6:46 PM [facility] Total Protein 6.4 6.0 - 8.0 g/dL LAB CHEMISTRY METHOD 02/01/2025 6:46 PM [facility] Albumin 3.1(L) 3.2 - 5.0 g/dL LAB CHEMISTRY METHOD 02/01/2025 6:46 PM [facility] Total Bilirubin 0.4 0.0 - 1.4 mg/dL LAB CHEMISTRY METHOD 02/01/2025 6:46 PM [facility] Blood Venous blood specimen / Unknown Venipuncture / Unknown 02/01/2025 12:49 PM EDT 02/01/2025 12:49 PM EDT us Rebecca Huang MD LAB BLOOD ORDERABLES Final Resul t Performing Organization Address [facility]/ZIP Co de Phone Number [facility] [address] [place] [address], [place] [phone] * External Vascular Ultrasound (01/29/2025) Only the most recent of2 resultswithin the time period is included. Anatomical Region Laterality Modality Ultrasound us Provider [facility] CV VASCULAR PROCEDURES F inal Result * External Xray Report (01/29/2025) Only the most recent of2 resultswithin the time period is included. Anatomical Region Laterality Modality Radiographic Jihan ging Provider [facility] IMG XR PROCEDURES Final Result * Chlamydia trachomatis and Neisseria gonorrhoeae molecular study (07/27/2024 3:19 PM EST) [facility] Neisseria gonorrhoeae PCR Negative Negative LAB MOLECULAR DIAGNOSTICS METHOD 07/28/2024 9:36 AM EST [facility] Chlamydia trachomatis PCR Negative Negative LAB MOLECULAR DIAGNOSTICS METHOD 07/28/2024 9:36 AM EST [facility] Swab Cervix uteri structure / Unknown Non-blood Collection / Unknown 07/27/2024 3:19 PM EST 07/27/2024 3:19 PM EST Marbella Pro MD LAB MICROBIOLOGY - GENERAL ORDERABLES Final Result Performing Organization Address City/[facility]/ZIP Co de Phone Number [facility] [address] [place] [address], [place] [phone] * HIV Screening (11/23/2020) Pathologist [facility] HIV Screening abstracted Historical Provider HEALTH MAINTENANCE Final Result * Hepatitis C Screening (11/23/2020) Pathologist [facility] Hepatitis C Screening abstracted Historical Provider HEALTH MAINTENANCE Final Result * Pap smear (04/12/2020) 04/12/2020 Narrative HISTORICAL TESTING LAB RESULTING AGENCY - 04/14/2020 12:26 PM EST [id number] THINPREP PAP, IMAGED: NEGATIVE FOR SQUAMOUS INTRAEPITHELIAL [...] Most Recently Relevant to Health Maintenance Insurance [facility] 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
== END 2025-04-01 12:09 | disposition home or self-care (01) ==
LOC: HO.HKA 11:32
PROVIDERS: PCP Internal Medicine; Visit Provider Internal Medicine Nephrology
DX: I10 Essential (primary) hypertension (principal); E10.21 Type 1 diabetes mellitus with diabetic nephropathy
CPT/HCPCS: 99214

== ENCOUNTER → 2025-04-01 11:32 | Outpatient (BNVA) | payer OTHER, SELFPAY | PROVIDERS: PCP Internal Medicine; Visit Provider Internal Medicine Nephrology | DX: E10.21 Type 1 diabetes mellitus with diabetic nephropathy (principal); I10 Essential (primary) hypertension | CPT/HCPCS: 99212 ==

== ENCOUNTER 2025-05-02 11:38 | Outpatient (REF) | payer OTHER, SELFPAY ==
[2025-05-02 12:47] LABS: Alanine Aminotransferase 13 U/L (0-31); Albumin Level 2.9 g/dL (3.5-5.0); Alkaline Phosphatase 99 U/L (39-117); Anion Gap 10 (12-20); Aspartate Amino Transferase 17 U/L (5-31); Blood Urea Nitrogen 22 mg/dL (9-16); Calcium 8.4 mg/dL (8.4-10.2); Carbon Dioxide 24 mmol/L (22-29); Chloride 109 mmol/L (96-108); Cholesterol 194 mg/dL (<200); Estimated Glomerular Filt Rate > 60; HDL Cholesterol 86 mg/dL (>40); Potassium 5.1 mmol/L (3.3-5.1); Sodium 138 mmol/L (135-145); Total Protein 5.8 g/dL (6.5-8.0); Triglycerides 50 mg/dL (<150)
--- OUTSIDE RECORDS SUMMARY | 2025-05-02 15:21 | XMS_ITS | Clinical Summary ---
Author Organization [facility] Address [address] [place] [address] Phone Care Team Providers Care Solution Mixer Name Role Phone Rebecca Encinas MD Primary Care Provider [phone] Allergies Active Allergy Reactions Criticality Noted Date Comments Clindamycin 11/25/2019 Other Reaction(s): Rash/Dermatitis Other 11/03/2014 SEASONAL Shellfish Derived 05/27/2024 Sulfa (Sulfonamide Antibiotics) Hives 04/12/2024 Medications medical supply, miscellaneous (MISCELLANEOUS MEDICAL SUPPLY MISC) SYRINGE-NEEDLE , DISP, 3 ML 25G X 5/8 3 [...] at bedtime 15 mL 11 025 Active Additional Information Patient taking differently: 27 Units Nightly, 25 units Sc at bedtime, Reported on 04/14/2025 glucagon (Gvoke HypoPen 2-Pack) 0.5 mg/0.1 mL [...] mouth 1 (one) time each day. Active esomeprazole (NexIUM) [address] capsule TAKE 1 CAPSULE BY MOUTH 1 TIME EACH DAY BEFORE BREAKFAST. DO NOT OPEN CAPSULE. 90 capsule 3 Active albuterol HFA (PROAIR HFA ; PROVENTIL HFA ; VENTOLIN HFA) 90 mcg/actuation inhalerIndication s:Mild intermittent asthma without complication Inhale 2 puffs by mouth every 4 (four) hours if needed for wheezing. 6.7 g 1 Active ondansetron ODT (ZOFRAN-ODT) 8 mg disintegrating tablet Dissolve 1 tablet (8 mg total) on top of the tongue every 8 (eight) hours if needed for nausea or vomiting. 30 tablet 1 Active LORazepam (ATIVAN) 0.5 mg tablet Take 1 tablet (0.5 mg total) by mouth every 8 (eight) hours if needed for anxiety. Active atorvastatin (LIPITOR) 10 mg tablet Take 1 tablet (10 mg total) by mouth 1 (one) time each day in the evening. Active butalbital-acetam inophen-caffeine (FIORICET, ESGIC) 50-325-40 mg per tablet Take 1 tablet by mouth 3 (three) times a day if needed for migraine. Active metoclopramide (REGLAN) 5 mg tablet Take 1 tablet (5 mg total) by mouth 3 (three) times a day before meals. 90 each 3 025 2025 Active metoprolol succinate (TOPROL-XL) 25 mg 24 hr tablet Take 1 tablet (25 mg total) by mouth 1 (one) time each day. Do not crush or chew. 90 each 025 2025 Active hydrOXYzine HCL (ATARAX) 25 mg tablet Take 1 tablet (25 mg total) by mouth every 8 (eight) hours if needed for anxiety. 90 tablet Active lamoTRIgine (LaMICtal) 25 mg tablet Take 1 tablet (25 mg total) by mouth 1 (one) time each day. Active busPIRone (BUSPAR) 7.5 mg tablet Take 1 tablet (7.5 mg total) by mouth 2 (two) times a day. Active clotrimazole (LOTRIMIN) 1 % cream Apply topically 2 (two) times a day. 30 g 3 025 2024 Active amLODIPine (NORVASC) 10 mg tablet TAKE 1 TABLET BY MOUTH 1 TIME EACH DAY. 90 tablet 1 Active SUMAtriptan (IMITREX) 100 mg tablet TAKE 1 TABLET BY MOUTH 1 TIME IF NEEDED FOR MIGRAINE. MAY REPEAT DOSE ONCE IN 2 HOURS IF NO RELIEF. DO NOT EXCEED 2 DOSES IN 24 HOURS. 9 tablet 1 Active amLODIPine (NORVASC) 10 mg tablet Take 1 tablet (10 mg total) by mouth 1 (one) time each day. 90 tablet 1 025 2024 Discontinued SUMAtriptan (IMITREX) 100 mg tablet TAKE 1 TABLET BY MOUTH 1 TIME IF NEEDED FOR MIGRAINE. MAY REPEAT DOSE ONCE IN 2 HOURS IF NO RELIEF. DO NOT EXCEED 2 DOSES IN 24 HOURS. 9 tablet 1 025 2024 Discontinued haloperidoL (HALDOL) 0.5 mg tablet Take 1 tablet (0.5 mg total) by mouth 3 (three) times a day. 025 2024 Discontinued Active Problems Problem Noted [...] 1 diabetes mellitus wit h ophthalmic complication ([facility] V24, [facility] V28) 06/25/2024 Depression, major, recurrent , moderate ([facility] V24, [facility] V28) 05/11/2024 Obesity 05/11/2024 Tobacco use [...] Encounters Date Type Department Care Team Description 04/14/2025 2:30 PM EST Office Visit Orthopedic Surgery - [place] [address] [phone] Wei Sheppard, DPM Dermatophytosis of nail (Primary Dx); Type 1 diabetes mellitus with mononeuropathy ([facility] V24, [facility] V28) 04/05/2025 10:00 AM EST Lab Draw Station - [facility] [address] [address] Elevated platelet count; Thrombocytosis; Leukocytosis, unspecified type; Iron deficiency anemia, unspecified iron deficiency anemia type 04/05/2025 9:30 AM EST Office Visit [facility] Hematology Oncology [address] [place] [address] Tess Sams PA Elevated platelet count (Primary Dx) 03/22/2025 1:00 PM EDT Office Visit [facility] Hematology Oncology [address] [place] [address] Tess Sams PA Elevated platelet count (Primary Dx) 03/17/2025 8:22 AM EDT - 03/17/2025 11:59 PM EDT Hospital Encounter [facility] Nuclear Medicine [address] [place] [phone] Nausea and vomiting, unspecified vomiting type; Gastroesophageal reflux disease, unspecified whether esophagitis present; LLQ abdominal pain Discharge Disposition: Home or Self Care 03/12/2025 Results Follow-Up Gastroenterology - [place] [facility] 175 [facility] [address] [place] [address] Charity Wall PA 03/10/2025 2:13 PM EDT - 03/10/2025 11:59 PM EDT Hospital Encounter [facility] CT Scan [address] [place] [address] Nausea and vomiting, unspecified vomiting type; Gastroesophageal reflux disease, unspecified whether esophagitis present; LLQ abdominal pain Discharge Disposition: Home or Self Care 03/10/2025 9:00 AM EDT Office Visit [address] [phone] Rebecca Encinas MD Hospital discharge follow-up (Primary Dx); 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, macular edema presence unspecified, unspecified retinopathy severity (CMS/HCC V24, CMS/HCC V28); Primary hypertension; Chronic diastolic heart failure (CMS/HCC V24, CMS/HCC V28); Generalized anxiety disorder 03/08/2025 8:50 AM EDT Office Visit Gastroenterology [facility] 175 [facility] [address] [phone] Charity Wall PA Nausea and vomiting, unspecified vomiting type (Primary Dx); Gastroesophageal reflux disease, unspecified whether esophagitis present; LLQ abdominal pain; High platelet count 03/07/2025 Results Follow-Up [facility] [address] [phone] Charity Wall PA 03/07/[address] [phone] Charity Wall PA 02/28/2025 Telephone Adult Medicine [facility] [address] [place] [phone] Rebecca Encinas MD 02/23/2025 9:46 AM EDT - 02/23/2025 11:59 PM EDT [facility] [address] [place] [phone] Gastroesophageal reflux disease, unspecified whether esophagitis present; Nausea and vomiting, unspecified vomiting type Discharge Disposition: Home or Self Care 02/17/2025 Telephone Adult [facility] [address] [place] [address] Rebecca Encinas MD 02/01/[address] [phone] Charity Wall PA from Last 3 Months Immunizations Immunization Administration Dates Next Due DTaP (Infanrix) 6wks to less than 7yo ,09/03/1999,05/04/1998,1997,1997 [id number] (Pentacel) 2mo to less than 5yo 09/03/1999,05/04/1998,03/01/1998,1997 [...] ENDOSCOPY 2007 PROCEDURE: UPPER GI ENDOSCOPY/EXAM; COMMENT: [facility] Medical History Medical History Date Comments Type 1 diabetes mellitus (CM S/HCC V24, CMS/HCC V28) DX:Type 1 diabetes mellitus (HCC); COMMENT: [facility] Endocrinology. Dr. Griffin. Dx age 8 [...] Sign Reading Time Taken Comments Blood Pressure 122/82 04/05/2025 9:32 AM EST Pulse 96 04/05/2025 9:32 AM EST Temperature 36.7 C (98 F) 04/05/2025 9:32 AM EST Respiratory Rate 14 03/10/2025 9:24 AM EDT Oxygen Saturation 94% 04/05/2025 9:32 AM EST Inhaled Oxygen Concentration - - Weight 95.3 kg (210 lb) 04/05/2025 9:32 AM EST Height 157.5 cm (5' 2 ) 04/05/2025 9:32 AM EST Body Mass Index 38.41 04/05/2025 9:32 AM EST Plan of Treatment Upcoming Encounters Date Type Department Care Team (Late st Contact Info) Description 05/10/2025 9:00 AM EST Office Visit [facility] Hematology Oncology [address] [place] [phone] Tess Sams PA [address] [place] [address] 05/16/2025 8:50 AM EST Office Visit Gastroenterology - 299 [facility] [address] [phone] Charity Wall PA [address] [address] 06/23/2025 2:00 PM EST Office Visit Adult Medicine [address] [phone] Rebecca Encinas MD [address] [place] [address] 10/12/2025 8:15 AM EDT Office Visit Orthopedic Surgery - [place] [address] [phone] Wei Sheppard, DPM [address] [phone] Health Maintenance Due Date Last Done Comments [...] Cervical Cancer Screening: Pap Smear 04/12/2023 04/12/2020, 04/12/2020 HPV Vaccines (1 - 3-dose SCDM series) 2024 COVID-19 Vaccine (3 - season) 2025 04/30/2021, 04/09/2021 Influenza Vaccine (#1) [...] Diagnosis Comments CBC WITH AUTO DIFFERENTIAL Routine 04/05/2025 9:59 AM EST Elevated platelet count CBC AND DIFFERENTIAL Routine 04/05/2025 9:59 AM EST Elevated platelet count MPL MUTATION ANALYSIS Routine 04/05/2025 9:59 AM EST Thrombocytosis Leukocytosis, unspecified type Iron deficiency anemia, unspecified iron deficiency anemia type CALRETICULIN MUTATION ANALYSIS Routine 04/05/2025 9:59 AM EST Thrombocytosis Leukocytosis, unspecified type Iron deficiency anemia, unspecified iron deficiency anemia type LACTATE DEHYDROGENASE Routine 04/05/2025 9:59 AM EST Elevated platelet count ERYTHROPOIETIN Routine 04/05/2025 9:59 AM EST Elevated platelet count CBC WITH AUTO DIFFERENTIAL Routine 03/22/2025 2:18 [...] mellitus without complication (CMS/HCC V24, CMS/HCC V28) CHLAMYDIA TRACHOMATIS AND NEISSERIA GONORRHOEAE PCR Routine 07/27/2024 3:19 PM EST Screen for STD (sexually transmitted disease) HEPATITIS C SCREENING Routine 11/23/2020 HIV SCREENING Routine 11/23/2020 PAP SMEAR Routine 04/12/2020 from Last 3 Months or Most Recently Relevant to Health Maintenance Results * MPL mutation analysis (04/05/2025 9:59 AM EST) Clinical Indication na 04/13 1:39 AM EST [facility] Specimen Source: blood 04/13/20 1:39 AM EST [facility] Block/Specimen ID: n 2024 1:39 AM EST [facility] MPL Exon 10 Mutation NOT DETECTED 04/13/2025 1:39 AM EST [facility] Comment: Reference Range: NOT DETECTED Gene TNP 04/13/2025 1:39 AM EST [facility] Amino Acid TNP 04/13/2025 1:39 AM EST [facility] Mutation Frequency TNP 2024 1:39 AM EST [facility] Mutation Type TNP 04/13/2025 1:39 AM EST [facility] Exon TNP 04/13/2025 1:39 AM EST [facility] Nucleotide Change TNP 025 1:39 AM EST [facility] Reference TNP 04/13/2025 1:39 AM EST [facility] Interpretation SEE NOTE 04/13/2025 1:39 AM EST [facility] Comment: No mutation is detected in exon 10 of MPL, encompassing codons 505 and 515. Results reviewed by Saulo Lara M.D. Assay Details SEE NOTE 04/13/2025 1:39 AM EST [facility] Comment: This PCR-based advanced sequencing assay interrogates DNA from leukocytes for the presence of mutations in exon 10 of the thrombopoietin receptor (MPL), including codons 505 and 515. The sensitivity of mutation detection is 5% but may vary depending on the particular mutation type. Insertions up to 30bp and deletions up to 52bp have been successfully detected by the assay. Alterations outside of the tested areas of this gene will not be detected. Synonymous or known non-synonymous polymorphic changes (SNPs) are not reported. Mutations at these sites in MPL are associated with myeloproliferative neoplasms (MPNs), particularly essential thrombocythemia (ET) and primary myelofibrosis (PMF). Results of this assay should be correlated with morphology and other laboratory testing for final diagnosis and classification. If this test is negative, additional testing that may be useful for workup of MPNs, depending on presenting hematologic features, includes BCR-ABL1 rearrangement (test code 06208 or 35523X) or mutational analysis of JAK2 V617F (polycythemia vera (PV)/ET/PMF, 25058), CALR (ET/PMF, 45481), JAK2 exon 12 (PV, 87115) or CSF3R (chronic neutrophilic leukemia, 87836). Residual material from this sample may be used except for BCR-ABL1 testing; call lab to add. DNA was aligned to GRCh37(hg19) for analysis and transcript ID [id number] was used as reference for MPL sequence. For additional information, please refer to http://education.Solutionary/faq/JWZ686 (This link is being provided for informational/educational purposes only.) This test was developed and its analytical performance characteristics have been determined by [email or web address]. It has not been cleared or approved by FDA. This assay has been validated pursuant to the CLIA regulations and is used for clinical purposes. Test Performed at: [email or web address] [address] [address] Rick Cade MD, PhD, SP Blood Venous blood specimen / Unknown Venipuncture / Unknown 04/05/2025 9:59 AM EST 04/05/2025 11:30 AM EST us Tess Sams PA LAB MOLECULAR DIAGNOSTICS ORD ERABLES Final Result [facility] [address] [place] [address] * Calreticulin mutation analysis (04/05/2025 9:59 AM EST) Clinical Indication: na 04/02 1:39 AM EST [facility] Specimen Source Blood, Venous 04/13/2025 1:39 AM EST [facility] Block/Specimen ID: na 2024 1:39 AM EST [facility] Calreticulin (CALR) Exon 9 Mutation Analysis NOT DETECTED 04/13/2025 1:39 AM EST [facility] Comment: Reference Range: NOT DETECTED Gene TNP 04/13/2025 1:39 AM EST [facility] Amino Acid TNP 04/13/2025 1:39 AM EST [facility] Mutation Frequency TNP 2024 1:39 AM EST [facility] Mutation Type TNP 04/13/2025 1:39 AM EST [facility] Exon TNP 04/13/2025 1:39 AM EST [facility] Nucleotide Change TNP 025 1:39 AM EST [facility] Reference TNP 04/13/2025 1:39 AM EST [facility] Interpretation SEE NOTE 04/13/2025 1:39 AM EST [facility] Comment: No mutation is detected in exon 9 of CALR. Insertions up to 30bp and deletions up to 52bp have been successfully detected by the assay. Results reviewed by Saulo Lara M.D. Assay Details SEE NOTE 04/13/2025 1:39 AM EST [facility] Comment: This PCR-based advanced sequencing assay interrogates DNA from leukocytes for the presence of mutations in exon 9 of calreticulin (CALR). The sensitivity of mutation detection is approximately 5% but may vary depending on the particular mutation type. Insertions up to 30bp and deletions up to 52bp have been successfully detected by the assay. Alterations outside of the tested areas of this gene will not be detected. Synonymous or known non-synonymous polymorphic changes (SNPs) are not reported. Frameshift mutations in this region of CALR are associated with myeloproliferative neoplasms (MPNs), particularly essential thrombocythemia (ET) and primary myelofibrosis (PMF). Results of this assay should be correlated with morphology and other laboratory testing for final diagnosis and classification. If this test is negative, additional testing that may be useful for workup of MPNs, depending on presenting hematologic features, includes BCR-ABL1 rearrangement (test code 89108 or 65044A) or mutational analysis of JAK2 V617F (polycythemia vera (PV)/ET/PMF, 56067), JAK2 exon 12 (PV, 91361), MPL (ET/PMF, 73437) or CSF3R (chronic neutrophilic leukemia, 19415). Residual material from this sample may be used except for BCR-ABL1 testing; call lab to add. DNA was aligned to GRCh37(hg19) for analysis and transcript ID [id number] was used as reference for CALR sequence. For additional information, please refer to http://education.EVOFEM.SafeRent/faq/YUQ013 (This link is being provided for informational/educational purposes only.) This test was developed and its analytical performance characteristics have been determined by [email or web address]. It has not been cleared or approved by FDA. This assay has been validated pursuant to the CLIA regulations and is used for clinical purposes. Test Performed at: [email or web address] [address] [place] [address] Rick Cade MD, PhD, SP Blood Venous blood specimen / Unknown Venipuncture / Unknown 04/05/2025 9:59 AM EST 04/05/2025 11:30 AM EST us Tess SCHWAB LAB MOLECULAR DIAGNOSTICS ORD ERABLES Final Result [facility] [address] [place] [address] * (ABNORMAL) CBC auto differential (04/05/2025 9:59 AM EST) Only the most recent of3 resultswithin the time period is included. WBC 9.1 4.8 - 10.8 K/mcL LAB HEMETOLOGY METHOD 04/05/2025 1:06 PM [facility] RBC 4.20 3.80 - 4.80 M/[facility] LAB HEMETOLOGY METHOD 04/05/2025 1:06 PM [facility] Hemoglobin 12.0 11.5 - 16.0 g/dL LAB HEMETOLOGY METHOD 04/05/2025 1:06 PM [facility] Hematocrit 36.8 35.0 - 47.0 % LAB HEMETOLOGY METHOD 04/05/2025 1:06 PM [facility] MCV 86.8 79.0 - 98.0 FL LAB HEMETOLOGY METHOD 04/05/2025 1:06 PM [facility] MCH 28.3 27.0 - 32.0 pcg LAB HEMETOLOGY METHOD 04/05/2025 1:06 PM [facility] MCHC 32.6 32.0 - 37.0 g/dL LAB HEMETOLOGY METHOD 04/05/2025 1:06 PM [facility] RDW 12.4 11.0 - 15.0 % LAB HEMETOLOGY METHOD 04/05/2025 1:06 PM [facility] Platelets 423(H) 130 - 400 K/mcL LAB HEMETOLOGY METHOD 04/05/2025 1:06 PM [facility] MPV 9.2 7.0 - 11.0 FL LAB HEMETOLOGY METHOD 04/05/2025 1:06 PM [facility] NRBC 0.0 <1.0 % LAB HEMETOLOGY METHOD 04/05/2025 1:06 PM [facility] NRBC Absolute 0.00 <0.10 K/mcL LAB HEMETOLOGY METHOD 04/05/2025 1:06 PM [facility] Neutrophils Relative 65.6 % LAB HEMETOLOGY METHOD 04/05/2025 1:06 PM [facility] Lymphocytes Relative 27.9 % LAB HEMETOLOGY METHOD 04/05/2025 1:06 PM [facility] Monocytes Relative 4.4 % LAB HEMETOLOGY METHOD 04/05/2025 1:06 PM [facility] Eosinophils Relative 1.2 % LAB HEMETOLOGY METHOD 04/05/2025 1:06 PM [facility] Basophils Relative 0.7 % LAB HEMETOLOGY METHOD 04/05/2025 1:06 PM [facility] Immature Granulocytes Relative 0.2 % LAB HEMETOLOGY METHOD 04/05/2025 1:06 PM [facility] Neutrophils Absolute 5.99 1.50 - 7.00 K/mcL LAB HEMETOLOGY METHOD 04/05/2025 1:06 PM [facility] Lymphocytes Absolute 2.54 1.00 - 5.00 K/mcL LAB HEMETOLOGY METHOD 04/05/2025 1:06 PM [facility] Monocytes Absolute 0.40 0.20 - 1.00 K/mcL LAB HEMETOLOGY METHOD 04/05/2025 1:06 PM [facility] Eosinophils Absolute 0.11 0.00 - 0.50 K/mcL LAB HEMETOLOGY METHOD 04/05/2025 1:06 PM EST [facility] Basophils Absolute 0.06 0.00 - 0.20 K/[facility] LAB HEMETOLOGY METHOD 04/05/2025 1:06 PM EST [facility] Immature Granulocytes Absolute 0.02 0.00 - 0.03 K/[facility] LAB HEMETOLOGY METHOD 04/05/2025 1:06 PM EST [facility] Blood Venous blood specimen / Unknown Venipuncture / Unknown 04/05/2025 9:59 AM EST 04/05/2025 11:31 AM EST Tess SCHWAB LAB BLOOD ORDERABLES Final Re sult Performing Organization Address City/[facility]/ZIP Co de Phone Number [facility] [address] [place] [address], * Erythropoietin (04/05/2025 9:59 AM EST) Erythropoietin 14.2 2.6 - 18.5 mIU/mL 04/07/2025 7:43 PM EST [facility] Comment: Test performed at [facility], [address] [place] [address] Lacie Cancino MD, PhD - Deodorizer Operator Blood Venous blood specimen / Unknown Venipuncture / Unknown 04/05/2025 9:59 AM EST 04/05/2025 11:31 AM EST Tess SCHWAB LAB BLOOD ORDERABLES Final Re sult [facility] [address] [place] [address] * Lactate dehydrogenase (04/05/2025 9:59 AM EST) LDH 190 120 - 246 unit/L LAB CHEMISTRY METHOD 04/05/2025 12:53 PM EST [facility] Blood Venous blood specimen / Unknown Venipuncture / Unknown 04/05/2025 9:59 AM EST 04/05/2025 11:31 AM EST Tess SCHWAB LAB BLOOD ORDERABLES Final Re sult [facility] [address] [place] [address], * JAK2 gene, V617F mutation, quantitative, molecular study (03/22/2025 2:18 PM EDT) Pathologist [facility] JAK2 (V617F) Mutation Not detected Not detected 03/25/2025 11:44 AM EDT [facility] WBC Percent with V617F Mutation <0.1 <0.1 % 03/25/2025 11:44 AM EDT [facility] Comment: This procedure uses real-time polymerase chain [...] characteristics of this procedure were determined by [facility]. This test is performed pursuant to a license agreement with [employer] Test performed at [facility], [facility] [place] [address] Lacie Cancino MD, PhD - Deodorizer Operator Blood Venous blood specimen / Unknown Venipuncture / Unknown 03/22/2025 2:18 PM EDT 03/22/2025 4:39 PM EDT Tess SCHWAB LAB MOLECULAR DIAGNOSTICS ORD ERABLES Final Result [facility] [address] [place] [address] * Iron and TIBC (03/22/2025 2:18 PM EDT) Iron 72 40 - 150 mcg/dL LAB CHEMISTRY METHOD 03/22/2025 5:14 PM EDT [facility] TIBC 257 250 - 450 mcg/dL LAB CHEMISTRY METHOD 03/22/2025 5:14 PM EDT [facility] Iron Saturation 28 15 - 50 % LAB CHEMISTRY METHOD 03/22/2025 5:14 PM EDT [facility] Blood Venous blood specimen / Unknown Venipuncture / Unknown 03/22/2025 2:18 PM EDT 03/22/2025 5:13 PM EDT Tess SCHWAB LAB BLOOD ORDERABLES Final Re sult Performing Organization Address City/[facility]/ZIP Co de Phone Number [facility] [address] [place] [address], [place] [phone] * Ferritin (03/22/2025 2:18 PM EDT) Pathologist [facility] Ferritin 46 8 - 252 ng/mL LAB CHEMISTRY METHOD 03/22/2025 5:13 PM EDT [facility] Blood Venous blood specimen / Unknown Venipuncture / Unknown 03/22/2025 2:18 PM EDT 03/22/2025 5:13 PM EDT Tess [facility] LAB BLOOD ORDERABLES Final Re sult [facility] [address] [place] [address], [place] [phone] * NM Gastric Emptying Study (03/17/2025 2:16 PM EDT) Anatomical Region Laterality Modality Body Nuclear Medicine 03/17/2025 3:15 PM EDT Impressions 03/17/2025 3:16 PM EDT Normal gastric emptying. -------- FINAL REPORT -------- Dictated By: Nena Cormier Dictated Date: 03/17/2025 15:15 ET Assigned Physician: Nena Cormier Reviewed and Electronically Signed By: Nena Cormier Signed Date: 03/17/2025 15:16 ET Workstation ID: [id number] Transcribed By: Self Edit Transcribed Date: 03/17/2025 [...] Signed Date: 03/17/2025 15:16 ET Workstation ID: [id number] Transcribed By: Self Edit Transcribed Date: 03/17/2025 [...] CT abdomen and pelvis with contrast Comparison: MR/KO/OK/SR - MR ABD WO AND W CONTRAST - 02/23/25 10:[address]/KO/OK - CT ABDOMEN OUTSIDE EXAMINATION - 08/09/24 [...] CT abdomen and pelvis with contrast Comparison: MR/KO/OK/SR - MR ABD WO AND W CONTRAST - 02/23/25 10:[address]/KO/OK - CT ABDOMEN OUTSIDE EXAMINATION - 08/09/24 [...] Pickett MD on 03/10/2025 17:47:[address] [place] [address] PROCEDURES Final Resul t * (ABNORMAL) Drug abuse screen expanded with reflex confirmation, urine (03/10/2025 10:23 AM EDT) Amphetamine Screen, Ur Negative Negative LAB CHEMISTRY METHOD 5 1:54 PM [facility] Comment:Certain OTC medicati ons containing ephedrine, phenylephrine, pseudoephedrine and phenylpropanolamine can cause false positive results. Barbiturate Screen, Ur Positive(A ) Negative LAB CHEMISTRY METHOD 5 1:54 PM [facility] Benzodiazepine Screen, Ur Negative Negative LAB CHEMISTRY METHOD 5 1:54 PM [facility] Cocaine Screen, Ur Negative Negative LAB CHEMISTRY METHOD 5 1:54 PM T [facility] Opiate Screen, Ur Negative Negative LAB CHEMISTRY METHOD 5 1:54 PM [facility] Cannabinoid (THC) Screen, Ur Positive(A ) Negative LAB CHEMISTRY METHOD 5 1:54 PM [facility] Comment:Specimens from patie nts taking pantoprazole sodium (Protonix) have been shown to produce false positive results. Fentanyl, Ur Negative Negative LAB CHEMISTRY METHOD 5 1:54 PM EDT [facility] [facility] Oxycodone Screen, Ur Negative Negative LAB CHEMISTRY METHOD 1:54 PM EDT [facility] Urine Urine specimen obtained by clean catch procedure / Unknown Non-blood Collection / Unknown 03/10/2025 10:23 AM EDT 03/10/2025 10:23 AM EDT Narrative [facility] - 03/10/2025 1:54 PM EDT Assay cutoffs: Amphetamines 1000 ng/mL Barbiturates 200 ng/mL Benzodiazepines 200 ng/mL Cocaine 300 ng/mL Fentanyl 1 ng/mL Opiates 300 ng/mL Oxycodone 100 ng/mL THC 50 ng/mL Semi-quantitative assay for screening purposes only. Unconfirmed screening result should not be used for non-medical purposes. *POSITIVE RESULTS ARE AUTOMATICALLY SENT FOR ALTERNATE METHOD CONFIRMATION* Rebecca Encinas MD LAB URINE ORDERABLES Final Resul t [facility] [address] [place] [address], [place] [phone] * (ABNORMAL) Microalbumin creatinine urine ratio (03/10/2025 10:23 AM EDT) Creatinine, Urine 44.0 mg/dL LAB CHEMISTRY METHOD 03/10/2025 1:57 PM EDT [facility] Microalb, Ur 2,260.0(H ) 0.0 - 29.0 mg/L LAB CHEMISTRY METHOD 03/10/2025 1:57 PM EDT [facility] Microalb/Crea t Ratio 5,136(H) <30 mg/g creat LAB CHEMISTRY METHOD 03/10/2025 1:57 PM EDT [facility] Urine Urine specimen obtained by clean catch procedure / Unknown Non-blood Collection / Unknown 03/10/2025 10:23 AM EDT 03/10/2025 10:23 AM EDT us Rebecca Encinas MD LAB URINE ORDERABLES Final Resul t [facility] ([facility]) [facility] [address] [place] [address], * (ABNORMAL) THC, urine, confirmation (03/10/2025 10:23 AM EDT) Tetrahydrocannabinoid (THC) 742(H) Negative ng/mL 03/14/2025 11:04 PM EDT [facility] Tetrahydrocannabinoid (THC)/Creatinine Ratio 1726 11:04 PM EDT [facility] Creatinine 43 20 - 250 mg/dL 03/14/2025 11:04 PM EDT [facility] Adulterants Negative 03/14/2025 11:04 PM EDT [facility] Comment: The urine THC/creatinine ratio is the best monitor to determine the possibility of continued drug usage. With abstinence, the ratio should decrease within one week by a factor of two or more. Confirmation (GC/MS) Decision Limit THC (66-[id number]-[id number]) 3 ng/mL Adulterant Decision Limit: General Oxidants 200 ug/mL The adulterant assay tests for General Oxidants, including Chromates and Nitrites. Adulterants are substances either ingested or added directly to a urine specimen to prevent the detection of drug use. If applicable, any drug confirmation testing reported here was developed and the performance characteristics determined by [facility]. This confirmation testing has not been cleared or approved by the FDA. The laboratory is regulated under CLIA as qualified to perform high-complexity testing. This test is used for patient testing purposes. It should not be regarded as investigational or for research. Test performed at [facility], [address], [place] [address] Lacie Cancino MD, PhD - Deodorizer Operator Urine Urine specimen obtained by clean catch procedure / Unknown Non-blood Collection / Unknown 03/10/2025 10:23 AM EDT 03/10/2025 1:54 PM EDT us Rebecca Encinas MD LAB URINE ORDERABLES Final Resul t [facility] [address] [place] [address] * (ABNORMAL) Barbiturate, quantitative, urine (03/10/2025 10:23 AM EDT) Amobarbital Confirm, Urine Negative Negative ng/mL 03/14/2025 11:04 PM EDT [facility] Butabarbital Confirm, Urine Negative Negative ng/mL 03/14/2025 11:04 PM EDT [facility] Butalbital Confirm, Urine 108(H) Negative ng/mL 03/14/2025 11:04 PM EDT [facility] Pentobarbital Confirm, Urine Negative Negative ng/mL 03/14/2025 11:04 PM EDT [facility] Phenobarbital Confirm, Urine Negative Negative ng/mL 03/14/2025 11:04 PM EDT [facility] Secobarbital Confirm, Urine Negative Negative ng/mL [...] developed and the performance characteristics determined by [facility]. This confirmation testing has not been cleared or approved by the FDA. The laboratory is regulated under CLIA as qualified to perform high-complexity testing. This test is used for patient testing purposes. It should not be regarded as investigational or for research. Test performed at [facility], [address], [place] [address] Lacie Cancino MD, PhD - Deodorizer Operator Urine Urine specimen obtained by clean catch procedure / Unknown Non-blood Collection / Unknown 03/10/2025 10:23 AM EDT 03/10/2025 1:54 PM EDT us Rebecca Encinas MD LAB URINE ORDERABLES Final Resul t [facility] [address] [place] [address] * (ABNORMAL) Renal function panel (03/08/2025 10:22 AM EDT) Pathologist [facility] Sodium 138 133 - 145 mmol/L LAB CHEMISTRY METHOD 03/08/2025 2:46 PM [facility] Potassium 5.5 3.5 - 5.5 mmol/L LAB CHEMISTRY METHOD 03/08/2025 2:46 PM [facility] Chloride 107 96 - 110 mmol/L LAB CHEMISTRY METHOD 03/08/2025 2:46 PM [facility] CO2 23 21 - 32 mmol/L LAB CHEMISTRY METHOD 03/08/2025 2:46 PM [facility] Anion Gap 8 3 - 11 LAB CHEMISTRY METHOD 03/08/2025 2:46 PM [facility] Glucose 258(H) 70 - 100 mg/dL LAB CHEMISTRY METHOD 03/08/2025 2:46 PM [facility] BUN 22 5 - 25 mg/dL LAB CHEMISTRY METHOD 03/08/2025 2:46 PM [facility] Creatinine 1.02 0.50 - 1.10 mg/dL LAB CHEMISTRY METHOD 03/08/2025 2:46 PM [facility] eGFR 77 >=60 mL/min/1. 73m2 LAB CHEMISTRY METHOD 03/08/2025 2:46 PM [facility] Comment:Calculation based on the Chronic Kidney Disease Epidemiology Collaboration (CKD-EPI) equation refit without adjustment for race. BUN/Creatinine Ratio 21.6 LAB CHEMISTRY METHOD 03/08/2025 2:46 PM EDT [facility] Albumin 2.9(L) 3.2 - 5.0 g/dL LAB CHEMISTRY METHOD 03/08/2025 2:46 PM EDT [facility] Calcium 9.1 8.5 - 10.5 mg/dL LAB CHEMISTRY METHOD 03/08/2025 2:46 PM EDT [facility] Phosphorus 3.9 2.5 - 4.5 mg/dL LAB CHEMISTRY METHOD 03/08/2025 2:46 PM EDT [facility] Blood Venous blood specimen / Unknown Venipuncture / Unknown 03/08/2025 10:22 AM EDT 03/08/2025 10:23 AM EDT Chraity SCHWAB LAB BLOOD ORDERABLES Final Re sult [facility] [address] [place] [address], [place] [phone] * MR Abdomen wo and w Contrast [...] Signed Date: 03/05/2025 10:17 ET Workstation ID: [id number] Transcribed By: Self Edit Transcribed Date: 03/05/2025 [...] Signed Date: 03/05/2025 10:17 ET Workstation ID: [id number] Transcribed By: Self Edit Transcribed Date: 03/05/2025 [...] mg/dL LAB [facility] 6[facility] Triglycerides 44 0 - 150 mg/dL LAB CHEMISTRY METHOD 02/01/2025 6:51 PM [facility] HDL 100 >=40 mg/dL LAB CHEMISTRY METHOD 02/01/2025 6:51 PM [facility] LDL Calculated 98 0 - 100 mg/dL LAB CHEMISTRY METHOD 02/01/2025 6:51 PM [facility] Comment:Estimated LDL Calcul ated using equation: Total cholesterol - HDL cholesterol - (Triglycerides/5) VLDL Cholesterol Miles 8.8 mg/dL LAB CHEMISTRY METHOD 02/01/2025 6:51 PM [facility] Non HDL Chol. (LDL+VLDL) 107 <145 mg/dL LAB CHEMISTRY METHOD 02/01/2025 6:51 PM [facility] Chol/HDL Ratio 2.1 0.0 - 4.4 LAB CHEMISTRY METHOD 02/01/2025 6:51 PM [facility] Blood Venous blood specimen / Unknown Venipuncture / Unknown 02/01/2025 12:49 PM EDT 02/01/2025 12:49 PM EDT us Rebecca Encinas MD LAB BLOOD ORDERABLES Final Resul t Performing Organization Address [facility]/ZIP Co de Phone Number [facility] [address] [place] [address], [place] [phone] * (ABNORMAL) Hemoglobin A1c (02/01/2025 12:49 PM EDT) Pathologist [facility] Hemoglobin A1C 8.5(H) <6.5 % LAB CHEMISTRY METHOD 02/01/2025 10:19 PM EDT [facility] Mean Bld Glu Estim. 197 mg/dL LAB CHEMISTRY METHOD 02/01/2025 10:19 PM EDT [facility] Blood Venous blood specimen / Unknown Venipuncture / Unknown 02/01/2025 12:49 PM EDT 02/01/2025 12:49 PM EDT us Rebecca Encinas MD LAB BLOOD ORDERABLES Final Resul t Performing Organization Address City/[facility]/ZIP Co de Phone Number [facility] [address] [place] [address], [place] [phone] * (ABNORMAL) Comprehensive metabolic panel (02/01/2025 12:49 PM EDT) Pathologist [facility] Sodium 137 133 - 145 mmol/L LAB [...] 02/01/2025 6:46 PM EDT [facility] Anion Gap 8 3 - 11 LAB CHEMISTRY METHOD 02/01/2025 6:46 PM [facility] Glucose 216(H) 70 - 100 mg/dL LAB CHEMISTRY METHOD 02/01/2025 6:46 PM [facility] BUN 30(H) 5 - 25 mg/dL LAB CHEMISTRY METHOD 02/01/2025 6:46 PM [facility] Creatinine 0.93 0.50 - 1.10 mg/dL LAB CHEMISTRY METHOD 02/01/2025 6:46 PM [facility] eGFR 87 >=60 mL/min/1. 73m2 LAB CHEMISTRY METHOD 02/01/2025 6:46 PM [facility] Comment:Calculation based on the Chronic Kidney Disease Epidemiology Collaboration (CKD-EPI) equation refit without adjustment for race. BUN/Creatinine Ratio 32.3 LAB CHEMISTRY METHOD 02/01/2025 6:46 PM [facility] Calcium 8.8 8.5 - 10.5 mg/dL LAB CHEMISTRY METHOD 02/01/2025 6:46 PM [facility] AST (SGOT) 15 10 - 42 unit/L LAB CHEMISTRY METHOD 02/01/2025 6:46 PM [facility] ALT (SGPT) 14 10 - 60 unit/L LAB CHEMISTRY METHOD 02/01/2025 6:46 PM [facility] Alkaline Phosphatase 95 42 - 121 unit/L LAB CHEMISTRY METHOD 02/01/2025 6:46 PM [facility] Total Protein 6.4 6.0 - 8.0 g/dL LAB CHEMISTRY METHOD 02/01/2025 6:46 PM [facility] Albumin 3.1(L) 3.2 - 5.0 g/dL LAB CHEMISTRY METHOD 02/01/2025 6:46 PM [facility] Total Bilirubin 0.4 0.0 - 1.4 mg/dL LAB CHEMISTRY METHOD 02/01/2025 6:46 PM EDT [facility] Blood Venous blood specimen / Unknown Venipuncture / Unknown 02/01/2025 12:49 PM EDT 02/01/2025 12:49 PM EDT Rebecca Encinas MD LAB BLOOD ORDERABLES Final Resul t Performing Organization Address City/[facility]/ZIP Co de Phone Number [facility] [address] [place] [address], [place] [phone] * Chlamydia trachomatis and Neisseria gonorrhoeae molecular study (07/27/2024 3:19 PM EST) [facility] Neisseria gonorrhoeae PCR Negative Negative LAB MOLECULAR [...] City/[facility]/ZIP Co de Phone Number [facility] [address] [place] [address], [place] [phone] * HIV Screening (11/23/2020) Pathologist [facility] HIV Screening abstracted us Historical Provider HEALTH MAINTENANCE Final Result * Hepatitis C Screening (11/23/2020) Pathologist [facility] Hepatitis C Screening abstracted us Historical Provider HEALTH MAINTENANCE Final Result * Pap smear (04/12/2020) 04/12/2020 Narrative HISTORICAL TESTING LAB RESULTING AGENCY - 04/14/2020 12:26 PM EST [id number] THINPREP PAP, IMAGED: NEGATIVE FOR SQUAMOUS INTRAEPITHELIAL LESION AND MALIGNANCY . ABUNDANT RED BLOOD CELLS ARE PRESENT. IRAJ BRONSON , HANNA(ASCP) (CASE ELECTRONICALLY SIGNED 04 14 2020) ADEQUACY: SATISFACTORY ENDOCERVICAL/TRANSFORMATION ZONE COMPONENT PRESENT. SOURCE: THINPREP PAP HPV IF ASCUS, CERVICAL, IMAGED CLINICAL INFORMATION: HPV IF DIAGNOSIS OF ASCUS. HORMONES, PAP HX NEG. Z12.4, Z01.419 us Johan Askew DO LAB CYTOLOGY ORDERABLES Final Result HISTORICAL TESTING LAB RESULTING AGENCY from Last 3 Months or Most Recently Relevant to Health Maintenance [place] [address] [place] [address] PLAN Care Teams Solution Mixer Relationship Specialty Start Date End Date Rebecca Encinas MD [address] [place] [phone] PCP - General Internal Medicine 09/10/24
--- OUTSIDE RECORDS SUMMARY | 2025-05-02 15:21 | XMS_ITS | Encounter Summary ---
Author Organization [facility] Address [address] [place] [address] Care Team Providers Care Blade Balancer Name Role Phone Rebecca Encinas MD Primary Care Provider [phone] Encounter Details Date Type Department Care Team ([facility] Contact Info) Description 03/12/2025 Results Follow-Up Gastroenterology - [place] 175 [facility] 175 [facility] [address] [place] [phone] Charity Wall PA 299 [facility] [address] [place] [address] Social History Tobacco Use Types Packs/Day Years [...] will notify patient about the results via [employer]. * JOSSELIN Velazquez - 03/12/2025 6:41 PM EDT I will notify patient about the results via [employer]. documented in this encounter Plan of Treatment Upcoming Encounters Date Type Department Care Team (Late st Contact Info) Description 05/10/2025 9:00 AM EST Office Visit [facility] Hematology Oncology [address] [place] [phone] Tess Sams PA [address] [place] [address] 05/16/2025 8:50 AM EST Office Visit Gastroenterology - 299 [facility] [address] [phone] Charity Wall PA [address] [address] 06/23/2025 2:00 PM EST Office Visit Adult Medicine [address] [phone] Rebecca Encinas MD [address] [place] [address] 10/12/2025 8:15 AM EDT Office Visit Orthopedic Surgery - [place] [address] [phone] Wei Sheppard DPM [address] [phone] documented as of this encounter Visit Diagnoses Not on filedocumented in this encounter Additional Health Concerns Assessment Noted Time PHQ-9 Depression Total Score: 11 025 2:47 PM EST documented as of this encounter Care Teams Blade Balancer Relationship Specialty Start Date End Date Rebecca Encinas MD [address] [place] [phone] PCP - General Internal Medicine 09/10/24 documented as of this encounter
--- OUTSIDE RECORDS SUMMARY | 2025-05-02 15:21 | XMS_ITS | Encounter Summary ---
Author Organization [facility] Address [address] [place] [address] Care Team Providers Care Life Care Planner Name Role Phone Rebecca Encinas MD Primary Care Provider [phone] Encounter Details Date Type Department Care Team ([facility] Contact Info) Description 03/07/2025 Results Follow-Up Gastroenterology - [place] 175 [facility] 175 [facility] [address] [place] [phone] Charity Wall PA 299 [facility] [address] [place] [address] Social History Tobacco Use Types Packs/Day Years [...] Upcoming Encounters Date Type Department Care Team ([facility] Contact Info) Description 05/10/2025 9:00 AM EST Office Visit [facility] Hematology Oncology [address] [place] [phone] Tess Sams PA [address] [place] [address] 05/16/2025 8:50 AM EST Office Visit Gastroenterology - 299 [facility] 299 [facility] [address] [place] [address] Charity Wall PA 299 [facility] [address] [place] [address] 06/23/2025 2:00 PM EST Office Visit Adult Medicine [facility] [address] [place] [address] Rebecca Encinas MD [address] [place], [place] 10/12/2025 8:15 AM EDT Office Visit Orthopedic Surgery - [place] [address] [phone] Wei Sheppard, DPDeshaun [address] [phone] documented as of this encounter Visit Diagnoses Not on filedocumented in this encounter Additional Health Concerns Assessment Noted Time PHQ-9 Depression Total Score: 11 025 2:47 PM EST documented as of this encounter Care Teams Life Care Planner Relationship Specialty Start Date End Date Rebecca Encinas MD [address] [place] [address] PCP - General Internal Medicine 09/10/24 documented as of this encounter
== END 2025-05-02 11:39 | disposition home or self-care (01) ==
LOC: HO.LAB 11:38
PROVIDERS: Absent Provider Internal Medicine Nephrology; PCP Internal Medicine
DX: E10.21 Type 1 diabetes mellitus with diabetic nephropathy (principal); E78.5 Hyperlipidemia, unspecified; I10 Essential (primary) hypertension
CPT/HCPCS: 36415; 80051; 80061; 80076; 82310; 82565; 84520

== ENCOUNTER 2025-05-04 10:04 | Outpatient (AMB) | payer OTHER, SELFPAY ==
--- NOTE | 2025-05-04 10:07 | A.OFFVIS_ITS ---
Vital Signs 05/04/25 10:08 Height 5 ft 2 in Weight 220 lb 7.396 oz BMI 40.3 BP 120/80 Blood Pressure Location Rt brachial Position Sitting Pulse 95 Pulse Source Pulse Oximeter Pulse Oximetry (%) 95 Oxygen Delivery Method Room Air Intake Visit Reasons: T1DM Intake Note: Patient present today for Type 1 Diabetes Mellitus. Patient receives Dexcom G7 supplies through: [employer] Last Diabetic Eye exam: 01/2025, [facility] Last Podiatry Visit: 04/14/2025 Dr. Sheppard Random Glucose: 201 mg/dL HgA1C: 8.5% 02/23/2025 Cooking Casing And Drying Supervisor Required: No Accompanied by: Self / Same As Patient Allergies Sulfa (Sulfonamide Antibiotics) (SULFA (SULFONAMIDE ANTIBIOTICS)) Allergy (U nknown, Verified 04/01/25 11:41) HIVES clindamycin Allergy (Verified 04/01/25 11:41) Hives fish derived (fish) Allergy (Verified 04/01/25 11:41) Anaphylaxis Medication List - Last Reconciled 05/04/25 by Adrian Leal MD acetone (urine) test (Ketone Urine Test strips) As directed albuterol sulfate 90 mcg/actuation (Ventolin HFA) 2 puffs inhalation QID PRN amlodipine 10 mg See Protocol PO DAILY@1999 atorvastatin (Lipitor) 10 mg PO QPM blood-glucose sensor (Dexcom G7 Sensor device) As directed buspirone 7.5 mg PO BID esomeprazole magnesium 40 mg PO QAM furosemide (Lasix) 20 mg PO DAILY glucagon 3 mg/actuation (Baqsimi) 3 mg intranasal ONCE hydroxyzine HCl 25 mg PO TID insulin glargine (Lantus Solostar U-100 Insulin) 27 units subcut BEDTIME insulin lispro (Humalog KwikPen (U-100) Insulin) 1 sliding scale dose subcut TID lamotrigine 25 mg PO DAILY loratadine 10 mg PO DAILY losartan 200 mg (2 x 100 mg) PO DAILY metoclopramide HCl 5 mg PO TID metoprolol succinate ER 25 mg PO DAILY ondansetron 4 mg PO Q8H PRN pen needle, diabetic (Comfort EZ Pen [place]) As directed injects 4 X/day sumatriptan succinate 25 mg PO DAILY PRN HPI Comments Details: 29 YO F with is seen in consultation for T1DM at the request of PCP. Initially diagnosed with T1DM in since age 8 when presented with DKA .Mom and sister have Type 1 DM Was initially started on treatment with insulin .Saw adult endo at [facility] Current regimen: Lantus 28 units Lispro carb 1:5 for meals for correction 1:20 Dexcom download shows she is using the sensor 86% of the time. Average glucose is 220 with G mi of 8.6% and coefficient of variation 41.7%. 35% range with 64% hyperglycemia and 1% hypoglycemic. Pen shows elevation in point of cares after dinner, after lunch with persistent hyperglycemia with a overnight per Had rare hypoglycemia Most recent A1C: [], [down] from prior of []. Reports low sugars rarely . but before was hypoglycemia in morning Treats lows with OBDULIO trejo . Checks sugar after to ensure it is rising. Follows the rule of 15's. Family history of autoimmunity in as above Not Has eyes checked yearly, last eye exam 04/15/2025 , has retinopathy. gets laser Has neuropathy, last foot exam [], Not sees podiatry. Has nephropathy, on CHERYL/ARB. followed by nephrology Has HLD, Not on statin. Not [ history of CAD. Has diastolic HF Not Had diabetes education. Diet/Carb counting: Yes Has prior episodes of DKA. within yr Has prior severe episodes of hypoglycemia requiring help or hospitalization but not recently Met with the nurses educator and is considering going on insulin pump. 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 Cocaine use Surgical History No pertinent past surgical history Family History Father Hypertension Mother Hypertension Diabetes Social History Household Members: Family Housing: House Do you presently have visiting nurse or other home services: No Alcohol intake: current Alcohol intake frequency: holidays/special occasions only Patient Tobacco Use Status: Never used Tobacco Substance Use Type: Marijuana service: No Physical Exam Vital Signs: Last Vital Signs Pulse 95 05/04/25 10:08 BP 120/80 05/04/25 10:08 Pulse Ox 95 05/04/25 10:08 Oxygen Delivery Method Room Air 05/04/25 10:08 BMI result Body Mass Index 40.3 Absence of Cushingoid features. Absence of acromegalic features. Neck exam reveals nl size thyroid about 15 gms. No thyroid nodules palpable. No carotid bruits present. Lungs CTA. Heart S1 S2, Reg R/R. No M/R/ G. Skin exam reveals absence of vitiligo or acanthosis nigricans. Abdominal exam reveals Soft NT/ND with NA BS. No organomegaly present. Extrem Other: Visual exam of foot performed. No ulcerations or open lesions. No onchomycosis, no callouses.Pulses 2 + distally. Sensation intact to monofilament exam. Vibratory sensation sensed decreased with 128 Hz tuning fork. There was 2 +edema to lower extremities Results Reviewed Results Reviewed: Laboratory Last Values Glucose (Clinic) 201 mg/dL (60-115) H 05/04/25 10:11 Assessment & Plan Assessment & Plan (1) Type 1 diabetes: Code(s): E10.9 - Type 1 diabetes mellitus without complications Category: Medical Qualifiers: Diabetes mellitus complication detail: with nephropathy Diabetes mellitus complication status: with kidney complications Qualified Code(s): E10.21 - Type 1 diabetes mellitus with diabetic nephropathy Plan: This is a 29-year-old white female with a history of type 1 diabetes being treated with basal-bolus insulin with poor glycemic control and known microvascular complications namely proteinuria/CKD and retinopathy. Plan is to change the Lantus to Tresiba 27 units. . The rationale behind this is that the Lantus may be wearing off causing elevation in glucose even when the patient is not eating. Patient should continue to pursue a diabetic pump with the educator and principal biostatistician and she already has received the T-insulin pump. I did tell the patient to have a low threshold for going to the emergency room. She is going to continue to dip her urine for ketones if they become strong or moderate will go to the emergency room or if she feels worse clinically Medications: New insulin degludec (Tresiba FlexTouch U-100 insulin) 27 units (0.27 mL) subcut BEDTIME 15 mL 0RF Coding Level of Care Code Complex visit Add On G2211 Diagnoses Type 1 diabetes mellitus with nephropathy E10.21 Diabetes mellitus complication detail: with nephropathy Diabetes mellitus complication status: with kidney complications
[2025-05-04 10:08] VITALS: BP 120/80; PULSE 95; O2SAT 95; BMI 40.3
[2025-05-04 10:21] LABS: Glucose, Whole Blood 201 mg/dL (60-115)
--- OUTSIDE RECORDS SUMMARY | 2025-05-04 11:26 | XMS_ITS | Encounter Summary ---
Author Organization [facility] Address [address] [place] [address] Care Team Providers Care Head Of Precision Targeting Name Role Phone Rebecca Encinas MD Primary Care Provider [phone] Encounter Details Date Type Department Care Team ([facility] Contact Info) Description 03/12/2025 Results Follow-Up Gastroenterology - [place] 175 [facility] 175 [facility] [address] [place] [phone] Charity Wall PA 299 [facility] [address] [place] [address] Social History Tobacco Use Types Packs/Day Years [...] will notify patient about the results via [employer]. * JOSSELIN Velazquez - 03/12/2025 6:41 PM EDT I will notify patient about the results via [employer]. documented in this encounter Plan of Treatment Upcoming Encounters Date Type Department Care Team (Late st Contact Info) Description 05/10/2025 9:00 AM EST Office Visit [facility] Hematology Oncology [address] [place] [address] Tess Sams PA [address] [place] [address] 05/16/2025 8:50 AM EST Office Visit Gastroenterology - 299 [facility] [address] [phone] Charity Wall PA [address] [address] 06/23/2025 2:00 PM EST Office Visit Adult Medicine [address] [phone] Rebecca Encinas MD [address] [place] [address] 10/12/2025 8:15 AM EDT Office Visit Orthopedic Surgery - [place] [address] [phone] Wei Sheppard DPM [address] [phone] documented as of this encounter Visit Diagnoses Not on filedocumented in this encounter Additional Health Concerns Assessment Noted Time PHQ-9 Depression Total Score: 11 025 2:47 PM EST documented as of this encounter Care Teams Head Of Precision Targeting Relationship Specialty Start Date End Date Rebecca Encinas MD [address] [place] [phone] PCP - General Internal Medicine 09/10/24 documented as of this encounter
--- OUTSIDE RECORDS SUMMARY | 2025-05-04 11:26 | XMS_ITS | Encounter Summary ---
Author Organization [facility] Address [address] [place] [address] Care Team Providers Care Vice President Investor Relations Name Role Phone Rebecca Encinas MD Primary Care Provider [phone] Encounter Details Date Type Department Care Team ([facility] Contact Info) Description 03/07/2025 Results Follow-Up Gastroenterology - [place] 175 [facility] 175 [facility] 200 [place] [phone] Charity Wall PA 299 [facility] [address] [place] [address] Social History Tobacco Use Types Packs/Day Years [...] Upcoming Encounters Date Type Department Care Team ([facility] Contact Info) Description 05/10/2025 9:00 AM EST Office Visit [facility] Hematology Oncology [address] [place] [phone] Tess Sams PA [address] [place] [address] 05/16/2025 8:50 AM EST Office Visit Gastroenterology - 299 [facility] 299 [facility] [address] [place] [address] Charity Wall PA 299 [facility] [address] [place] [address] 06/23/2025 2:00 PM EST Office Visit Adult Medicine [facility] [address] [place] [address] Rebecca Encinas MD [address] [place], [place] 10/12/2025 8:15 AM EDT Office Visit Orthopedic Surgery - [place] [address] [phone] Wei Sheppard, DPDeshaun [address] [phone] documented as of this encounter Visit Diagnoses Not on filedocumented in this encounter Additional Health Concerns Assessment Noted Time PHQ-9 Depression Total Score: 11 025 2:47 PM EST documented as of this encounter Care Teams Vice President Investor Relations Relationship Specialty Start Date End Date Rebecca Encinas MD [address] [place] [address] PCP - General Internal Medicine 09/10/24 documented as of this encounter
--- OUTSIDE RECORDS SUMMARY | 2025-05-04 11:27 | XMS_ITS | Clinical Summary ---
Author Organization [facility] Address [address] [place] [address] Phone Care Team Providers Care Traffic Controller Cable Name Role Phone Rebecca Encinas MD Primary Care Provider [phone] Allergies Active Allergy Reactions Criticality Noted Date [...] 1 diabetes mellitus wit h ophthalmic complication ([facility] V24, [facility] V28) 06/25/2024 Depression, major, recurrent , moderate ([facility] V24, [facility] V28) 05/11/2024 Obesity 05/11/2024 Tobacco [...] PM EST Office Visit Orthopedic Surgery - [place] [address] [phone] Wei Sheppard, DPM Dermatophytosis of nail (Primary Dx); Type 1 diabetes mellitus with mononeuropathy ([facility] V24, [facility] V28) 04/05/2025 10:00 AM EST Lab Draw Station - [facility] [address] [phone] Elevated platelet count; Thrombocytosis; Leukocytosis, unspecified type; Iron deficiency anemia, unspecified iron deficiency anemia type 04/05/2025 9:30 AM EST Office Visit [facility] Hematology Oncology [address] [place] [address] Tess Sams PA Elevated platelet count (Primary Dx) 03/22/2025 1:00 PM EDT Office Visit [facility] Hematology Oncology [address] [place] [address] Tess Sams PA Elevated platelet count (Primary Dx) 03/17/2025 8:22 AM EDT - 03/17/2025 11:59 PM EDT Hospital Encounter [facility] Nuclear Medicine [address] [place] [phone] Nausea and vomiting, unspecified vomiting type; Gastroesophageal reflux disease, unspecified whether esophagitis present; LLQ abdominal pain Discharge Disposition: Home or Self Care 03/12/2025 Results Follow-Up Gastroenterology - [place] 175 [facility] 175 [facility] [address] [place] [address] Charity Wall PA 03/10/2025 2:13 PM EDT - 03/10/2025 11:59 PM EDT Hospital Encounter [facility] CT Scan [address] [place] [address] Nausea and vomiting, unspecified vomiting type; Gastroesophageal reflux disease, unspecified whether esophagitis present; LLQ abdominal pain Discharge Disposition: Home or Self Care 03/10/2025 9:00 AM EDT Office Visit [address] [phone] Rebecca Encinas MD Hospital discharge follow-up (Primary Dx); 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, macular edema presence unspecified, unspecified retinopathy severity (CMS/HCC V24, CMS/HCC V28); Primary hypertension; Chronic diastolic heart failure (CMS/HCC V24, CMS/HCC V28); Generalized anxiety disorder 03/08/2025 8:50 AM EDT Office Visit Gastroenterology [facility] 175 [facility] [address] [phone] Charity Wall PA Nausea and vomiting, unspecified vomiting type (Primary Dx); Gastroesophageal reflux disease, unspecified whether esophagitis present; LLQ abdominal pain; High platelet count 03/07/2025 [facility] [address] [phone] Charity Wall PA 03/07/2025 Telephone [facility] [address] [phone] Charity Wall PA 02/28/2025 Telephone Adult Medicine [facility] [address] [place] [phone] Rebecca Encinas MD 02/23/2025 9:46 AM EDT - 02/23/2025 11:59 PM EDT Hospital [facility] MRI [address] [place] [phone] Gastroesophageal reflux disease, unspecified whether esophagitis present; Nausea and vomiting, unspecified vomiting type Discharge Disposition: Home or Self Care 02/17/2025 Telephone Adult Medicine [facility] [address] [place] [phone] Rebecca Encinas MD from Last 3 Months Immunizations Immunization Administration Dates Next Due DTaP (Infanrix) 6wks to less than 7yo ,09/03/1999,05/04/1998,1997,1997 [id number] (Pentacel) 2mo to less than 5yo 09/03/1999,05/04/1998,03/01/1998,1997 [...] ENDOSCOPY 2007 PROCEDURE: UPPER GI ENDOSCOPY/EXAM; COMMENT: [facility] Medical History Medical History Date Comments Type 1 diabetes mellitus (CM S/HCC V24, CMS/HCC V28) DX:Type 1 diabetes mellitus (HCC); COMMENT: [facility] Endocrinology. Dr. Griffin. Dx age 8 [...] Description 05/10/2025 9:00 AM EST Office Visit [facility] Hematology Oncology [address] [place] [phone] Tess Sams PA [address] [place] [address] 05/16/2025 8:50 AM EST Office Visit Gastroenterology - 299 [facility] [address] [phone] Charity Wall PA [address] [address] 06/23/2025 2:00 PM EST Office Visit Adult Medicine [address] [phone] Rebecca Encinas MD [address] [place] [address] 10/12/2025 8:15 AM EDT Office Visit Orthopedic Surgery - [place] 250 175 [facility] 250 [place] [address] Wei Sheppard, DPM [address] [phone] Health Maintenance Due Date Last Done Comments [...] 02/23/2025 EXTERNAL DIABETIC RETINA EYE EXAM 02/21/2025 HEMOGLOBIN A1C Routine 02/01/2025 12:49 PM EDT Type 1 diabetes mellitus without complication ([facility] V24, [facility] V28) LIPID PANEL WITH REFLEX TO DIRECT LDL Routine 02/01/2025 12:49 PM EDT Type 1 diabetes mellitus without complication ([facility] V24, [facility] V28) CHLAMYDIA TRACHOMATIS AND NEISSERIA [...] AM EST [facility] Nucleotide Change TNP 2 025 1:39 AM EST [facility] Reference TNP 04/13/2025 1:39 AM EST [facility] Interpretation SEE NOTE 04/13/2025 1:39 AM EST [facility] Comment: No mutation is detected in exon 10 of MPL, encompassing codons 505 and 515. Results reviewed by Saulo Lara M.D. Assay Details SEE NOTE 04/13/2025 1:39 AM [facility] Comment: This PCR-based advanced sequencing assay interrogates [...] hematologic features, includes BCR-ABL1 rearrangement (test code 77725 or 76888D) or mutational analysis of JAK2 V617F (polycythemia vera (PV)/ET/PMF, 21623), CALR (ET/PMF, 16248), JAK2 exon 12 (PV, 05908) or CSF3R (chronic neutrophilic leukemia, 97718). Residual material from this sample may be used except for BCR-ABL1 testing; call lab to add. DNA was aligned to GRCh37(hg19) for analysis and transcript ID [id number] was used as reference for MPL sequence. For additional information, please refer to http://education.Meal Ticket.Park [employer]s/faq/VAM920 (This link is being provided for informational/educational purposes only.) This test was developed and its analytical performance characteristics have been determined by [facility]. It has not been cleared or approved by FDA. This assay has been validated pursuant to the CLIA regulations and is used for clinical purposes. Test Performed at: [facility] [address] [address] Rick Cade MD, PhD, SP Blood Venous blood specimen / Unknown Venipuncture / Unknown 04/05/2025 9:59 AM EST 04/05/2025 11:30 AM EST Tess SCHWAB LAB MOLECULAR DIAGNOSTICS ORD ERABLES Final Result [place] [address] [place] [address] * Calreticulin mutation analysis (04/05/2025 9:59 AM EST) Clinical Indication: na 04/02 1:39 AM EST [facility] Specimen Source Blood, Venous 04/13/2025 1:39 AM EST [facility] Block/Specimen ID: na 2024 1:39 AM EST [facility] Calreticulin (CALR) Exon 9 Mutation Analysis NOT DETECTED 04/13/2025 1:39 AM EST [facility] Comment: Reference Range: NOT DETECTED Gene TNP 04/13/2025 1:39 AM EST [facility] Amino Acid TNP 04/13/2025 1:39 AM EST [facility] Mutation Frequency TNP 2024 1:39 AM EST [facility] Mutation Type TNP 04/13/2025 1:39 AM EST [facility] Exon TNP 04/13/2025 1:39 AM EST [facility] Nucleotide Change TNP 04/13/2 025 1:39 AM EST [facility] Reference [...] hematologic features, includes BCR-ABL1 rearrangement (test code 89978 or 24533V) or mutational analysis of JAK2 V617F (polycythemia vera (PV)/ET/PMF, 34262), JAK2 exon 12 (PV, 34194), MPL (ET/PMF, 06385) or CSF3R (chronic neutrophilic leukemia, 47220). Residual material from this sample may be used except for BCR-ABL1 testing; call lab to add. DNA was aligned to GRCh37(hg19) for analysis and transcript ID [id number] was used as reference for CALR sequence. For additional information, please refer to http://education.Gaatu/faq/YAV234 (This link is being provided for informational/educational purposes only.) This test was developed and its analytical performance characteristics have been determined by [facility]. It has not been cleared or approved by FDA. This assay has been validated pursuant to the CLIA regulations and is used for clinical purposes. Test Performed at: [facility] [address] [address] Rick Cade MD, PhD, SP Blood Venous blood specimen / Unknown Venipuncture / Unknown 04/05/2025 9:59 AM EST 04/05/2025 11:30 AM EST us Tess SCHWAB LAB MOLECULAR DIAGNOSTICS ORD ERABLES Final Result [address] [address] * (ABNORMAL) CBC auto differential (04/05/2025 9:59 AM EST) Only the most recent of2 resultswithin the time period is included. [facility] WBC 9.1 4.8 - 10.8 K/mcL LAB HEMETOLOGY METHOD 04/05/2025 1:06 PM [facility] RBC 4.20 3.80 - 4.80 M/mcL LAB HEMETOLOGY METHOD 04/05/2025 1:06 PM [facility] Hemoglobin 12.0 11.5 - 16.0 g/dL LAB HEMETOLOGY METHOD 04/05/2025 1:06 PM [facility] Hematocrit 36.8 35.0 - 47.0 % LAB HEMETOLOGY METHOD 04/05/2025 1:06 PM [facility] MCV 86.8 79.0 - 98.0 FL LAB HEMETOLOGY METHOD 04/05/2025 1:06 PM [facility] MCH 28.3 27.0 - 32.0 pcg LAB HEMETOLOGY METHOD 04/05/2025 1:06 PM [facility] MCHC 32.6 32.0 - 37.0 g/dL LAB HEMETOLOGY METHOD 04/05/2025 1:06 PM [facility] RDW 12.4 11.0 - 15.0 % LAB HEMETOLOGY METHOD 04/05/2025 1:06 PM [facility] Platelets 423(H) 130 - 400 K/mcL LAB HEMETOLOGY METHOD 04/05/2025 1:06 PM [facility] MPV 9.2 7.0 - 11.0 FL LAB HEMETOLOGY METHOD 04/05/2025 1:06 PM [facility] NRBC 0.0 <1.0 % LAB HEMETOLOGY METHOD 04/05/2025 1:06 PM [facility] NRBC Absolute 0.00 <0.10 K/mcL LAB HEMETOLOGY METHOD 04/05/2025 1:06 PM [facility] Neutrophils Relative 65.6 % LAB HEMETOLOGY METHOD 04/05/2025 1:06 PM [facility] Lymphocytes Relative 27.9 % LAB HEMETOLOGY METHOD 04/05/2025 1:06 PM [facility] Monocytes Relative 4.4 % LAB HEMETOLOGY METHOD 04/05/2025 1:06 PM [facility] Eosinophils Relative 1.2 % LAB HEMETOLOGY METHOD 04/05/2025 1:06 PM [facility] Basophils Relative 0.7 % LAB HEMETOLOGY METHOD 04/05/2025 1:06 PM [facility] Immature Granulocytes Relative 0.2 % LAB HEMETOLOGY METHOD 04/05/2025 1:06 PM [facility] Neutrophils Absolute 5.99 1.50 - 7.00 K/mcL LAB HEMETOLOGY METHOD 04/05/2025 1:06 PM [facility] Lymphocytes Absolute 2.54 1.00 - 5.00 K/mcL LAB HEMETOLOGY METHOD 04/05/2025 1:06 PM [facility] Monocytes Absolute 0.40 0.20 - 1.00 K/mcL LAB HEMETOLOGY METHOD 04/05/2025 1:06 PM [facility] Eosinophils Absolute 0.11 0.00 - 0.50 K/mcL LAB HEMETOLOGY METHOD 04/05/2025 1:06 PM [facility] Basophils Absolute 0.06 0.00 - 0.20 K/mcL LAB HEMETOLOGY METHOD 04/05/2025 1:06 PM [facility] Immature Granulocytes Absolute 0.02 0.00 - 0.03 K/mcL LAB HEMETOLOGY METHOD 04/05/2025 1:06 PM [facility] Blood Venous blood specimen / Unknown Venipuncture / Unknown 04/05/2025 9:59 AM EST 04/05/2025 11:31 AM EST Tess SCHWAB LAB BLOOD ORDERABLES Final Re sult [facility]) [facility] [address] [place] [address], [place] [phone] * Erythropoietin (04/05/2025 9:59 AM EST) [facility] Erythropoietin 14.2 2.6 - 18.5 mIU/mL 04/07/2025 7:43 PM EST [facility] Comment: Test performed at [facility], [address] , [place] [address] Lacie Cancino MD, PhD - Yoker Machine Operator Blood Venous blood specimen / Unknown Venipuncture / Unknown 04/05/2025 9:59 AM EST 04/05/2025 11:31 AM EST Tess Sams [place] LAB BLOOD ORDERABLES Final Re sult [facility] [address] [place] [address] * Lactate dehydrogenase (04/05/2025 9:59 AM EST) [facility] LDH 190 120 - 246 unit/L LAB CHEMISTRY METHOD 04/05/2025 12:53 PM EST [facility] Blood Venous blood specimen / Unknown Venipuncture / Unknown 04/05/2025 9:59 AM EST 04/05/2025 11:31 AM EST Tess Sams [place] LAB BLOOD ORDERABLES Final Re sult [facility]) [facility] [address] [place] [address], [place] [phone] * JAK2 gene, V617F mutation, quantitative, molecular study (03/22/2025 2:18 PM EDT) [facility] JAK2 (V617F) Mutation Not detected Not detected 03/25/2025 11:44 AM EDT [facility] WBC Percent with V617F Mutation <0.1 <0.1 % 03/25/2025 11:44 AM EDT [facility] Comment: This procedure uses real-time polymerase chain [...] characteristics of this procedure were determined by [facility]. This test is performed pursuant to a license agreement with [employer] Test performed at [facility], [address] , [place] [address] Lacie Cancino MD, PhD - Yoker Machine Operator Blood Venous blood specimen / Unknown Venipuncture / Unknown 03/22/2025 2:18 PM EDT 03/22/2025 4:39 PM EDT Tess SCHWAB LAB MOLECULAR DIAGNOSTICS ORD ERABLES Final Result [facility] [address] [place] [address] * Iron and TIBC (03/22/2025 2:18 PM EDT) [facility] Iron 72 40 - 150 mcg/dL LAB CHEMISTRY METHOD 03/22/2025 5:14 PM EDT [facility] TIBC 257 250 - 450 mcg/dL LAB CHEMISTRY METHOD 03/22/2025 5:14 PM EDT [facility] Iron Saturation 28 15 - 50 % LAB CHEMISTRY METHOD 03/22/2025 5:14 PM EDT [facility] Blood Venous blood specimen / Unknown Venipuncture / Unknown 03/22/2025 2:18 PM EDT 03/22/2025 5:13 PM EDT Tess SCHWAB LAB BLOOD ORDERABLES Final Re sult Performing Organization Address [facility]/ZIP Co de Phone Number [facility] [address] [place] [address], [place] [phone] * Ferritin (03/22/2025 2:18 PM EDT) Pathologist [facility] Ferritin 46 8 - 252 ng/mL LAB CHEMISTRY METHOD 03/22/2025 5:13 PM EDT [facility] Blood Venous blood specimen / Unknown Venipuncture / Unknown 03/22/2025 2:18 PM EDT 03/22/2025 5:13 PM EDT Tess SCHWAB LAB BLOOD ORDERABLES Final Re sult Performing Organization Address [facility]/ZIP Co de Phone Number [facility] [address] [place] [address], [place] [phone] * NM Gastric Emptying Study (03/17/2025 2:16 PM EDT) Anatomical Region Laterality Modality Body Nuclear Medicine 03/17/2025 3:15 PM EDT Impressions 03/17/2025 3:16 PM EDT Normal gastric emptying. -------- FINAL REPORT -------- Dictated By: Nena Cormier Dictated Date: 03/17/2025 15:15 ET Assigned Physician: Nena Cormier Reviewed and Electronically Signed By: Nena Cormier Signed Date: 03/17/2025 15:16 ET Workstation ID: [id number] Transcribed By: Self Edit Transcribed Date: 03/17/2025 [...] Signed Date: 03/17/2025 15:16 ET Workstation ID: [id number] Transcribed By: Self Edit Transcribed Date: 03/17/2025 15:15 ET Charity SCH[facility] PROCEDURES Final Resul t * CT Abdomen [...] CT abdomen and pelvis with contrast Comparison: MR/KO/PA/SR - MR ABD WO AND W CONTRAST - 02/23/25 10:[address]/KO/PA - CT ABDOMEN OUTSIDE EXAMINATION - 08/09/24 [...] aorta. No acute fracture. Procedure Note Hodan iPckett MD - 03/10/2025 INDICATION: LLQ abd pain, N/V, easy bruising CT abdomen and pelvis with contrast Comparison: MR/KO/PA/SR - MR ABD WO AND W CONTRAST - 02/23/25 10:[address]/KO/PA - CT ABDOMEN OUTSIDE EXAMINATION - 08/09/24 [...] Hodan Pickett MD on 03/10/2025 17:47:11 Charity Duke PA IMG CT PROCEDURES Final Resul t * (ABNORMAL) Drug abuse screen expanded with reflex confirmation, urine (03/10/2025 10:23 AM EDT) Amphetamine Screen, Ur Negative Negative LAB CHEMISTRY METHOD 1:54 PM EDT [facility] Comment:Certain OTC medicati ons containing ephedrine, phenylephrine, pseudoephedrine and phenylpropanolamine can cause false positive results. Barbiturate Screen, Ur Positive(A ) Negative LAB CHEMISTRY METHOD 1:54 PM EDT [facility] Benzodiazepine Screen, Ur Negative Negative [facility] Cocaine Screen, Ur Negative Negative LAB CHEMISTRY METHOD 1:54 PM [facility] Opiate Screen, Ur Negative Negative LAB CHEMISTRY METHOD 1:54 PM [facility] Cannabinoid (THC) Screen, Ur Positive(A ) Negative LAB CHEMISTRY METHOD 1:54 PM [facility] Comment:Specimens from patie nts taking pantoprazole sodium (Protonix) have been shown to produce false positive results. Fentanyl, Ur Negative Negative LAB CHEMISTRY METHOD 1:54 PM [facility] Oxycodone Screen, Ur Negative Negative LAB CHEMISTRY METHOD 1:54 PM [facility] Urine Urine specimen obtained by clean catch procedure / Unknown Non-blood Collection / Unknown 03/10/2025 10:23 AM EDT 03/10/2025 10:23 AM EDT [facility] - 03/10/2025 1:54 PM EDT Assay [...] ORDERABLES Final Resul t Performing Organization Address [facility] Co de Phone Number [facility] [address] [place] [address], [place] [phone] * (ABNORMAL) Microalbumin creatinine urine ratio (03/10/2025 10:23 AM EDT) Creatinine, Urine 44.0 mg/dL LAB CHEMISTRY METHOD 03/10/2025 1:57 PM EDT [facility] Microalb, Ur 2,260.0(H ) 0.0 - 29.0 mg/L LAB CHEMISTRY METHOD 03/10/2025 1:57 PM EDT [facility] Microalb/Crea t Ratio 5,136(H) <30 mg/g creat LAB CHEMISTRY METHOD 03/10/2025 1:57 PM EDT [facility] Urine Urine specimen obtained by clean catch procedure / Unknown Non-blood Collection / Unknown 03/10/2025 10:23 AM EDT 03/10/2025 10:23 AM EDT Rebecca Encinas MD LAB URINE ORDERABLES Final Resul t Performing Organization Address [facility]/ZIP Co de Phone Number [facility] [address] [place] [address], [place] [phone] * (ABNORMAL) THC, urine, confirmation (03/10/2025 10:23 AM EDT) Tetrahydrocannabinoid (THC) 742(H) Negative ng/mL 03/14/2025 11:04 PM EDT [facility] Tetrahydrocannabinoid (THC)/Creatinine Ratio 1726 11:04 PM EDT [facility] Creatinine 43 20 - 250 mg/dL 03/14/2025 11:04 PM EDT [facility] Adulterants Negative 03/14/2025 11:04 PM EDT [facility] Comment: The urine THC/creatinine ratio is the best monitor to determine the possibility of continued drug usage. With abstinence, the ratio should decrease within one week by a factor of two or more. Confirmation (GC/MS) Decision Limit THC (05-cub-6-[id number]-8-[id number]) 3 ng/mL Adulterant Decision Limit: General Oxidants 200 ug/mL The adulterant assay tests for General Oxidants, including Chromates and Nitrites. Adulterants are substances either ingested or added directly to a urine specimen to prevent the detection of drug use. If applicable, any drug confirmation testing reported here was developed and the performance characteristics determined by [facility]. This confirmation testing has not been cleared or approved by the FDA. The laboratory is regulated under CLIA as qualified to perform high-complexity testing. This test is used for patient testing purposes. It should not be regarded as investigational or for research. Test performed at [facility], [address] , [place] [address] Lacie Cancino MD, PhD - Yoker Machine Operator Urine Urine specimen obtained by clean catch procedure / Unknown Non-blood Collection / Unknown 03/10/2025 10:23 AM EDT 03/10/2025 1:54 PM EDT us Rebecca Encinas MD LAB URINE ORDERABLES Final Resul t [facility] [address] [place] [address] * (ABNORMAL) Barbiturate, quantitative, urine (03/10/2025 10:23 AM EDT) Amobarbital Confirm, Urine Negative Negative ng/mL 03/14/2025 11:04 PM EDT [facility] Butabarbital Confirm, Urine Negative Negative ng/mL 03/14/2025 11:04 PM EDT [facility] Butalbital Confirm, Urine 108(H) Negative ng/mL 03/14/2025 11:04 PM EDT [facility] Pentobarbital Confirm, Urine Negative Negative ng/mL 03/14/2025 11:04 PM EDT [facility] Phenobarbital Confirm, Urine Negative Negative ng/mL 03/14/2025 11:04 PM EDT [facility] Secobarbital Confirm, Urine Negative Negative ng/mL 03/14/2025 11:04 PM EDT [facility] Creatinine 43 20 - 250 mg/dL 03/14/2025 11:04 PM EDT [facility] Adulterants Negative 03/14/2025 11:04 PM EDT [facility] Comment: Confirmation (GC/MS) Decision Limits Amobarbital [...] developed and the performance characteristics determined by [facility]. This confirmation testing has not been cleared or approved by the FDA. The laboratory is regulated under CLIA as qualified to perform high-complexity testing. This test is used for patient testing purposes. It should not be regarded as investigational or for research. Test performed at [facility], [address] , [place], [place] [id number] Lacie Cancino MD, PhD - Yoker Machine Operator Urine Urine specimen obtained by clean catch procedure / Unknown Non-blood Collection / Unknown 03/10/2025 10:23 AM EDT 03/10/2025 1:54 PM EDT us Rebecca Encinas MD LAB URINE ORDERABLES Final Resul t [facility] [address] [place] [address] * (ABNORMAL) Renal function panel (03/08/2025 10:22 AM EDT) Sodium 138 133 - 145 mmol/L LAB CHEMISTRY METHOD 03/08/2025 2:46 PM EDT [facility] Potassium 5.5 3.5 - 5.5 mmol/L LAB CHEMISTRY METHOD 03/08/2025 2:46 PM [facility] Chloride 107 96 - 110 mmol/L LAB CHEMISTRY METHOD 03/08/2025 2:46 PM [facility] CO2 23 21 - 32 mmol/L LAB CHEMISTRY METHOD 03/08/2025 2:46 PM [facility] Anion Gap 8 3 - 11 LAB CHEMISTRY METHOD 03/08/2025 2:46 PM [facility] Glucose 258(H) 70 - 100 mg/dL LAB CHEMISTRY METHOD 03/08/2025 2:46 PM [facility] BUN 22 5 - 25 mg/dL LAB CHEMISTRY METHOD 03/08/2025 2:46 PM [facility] Creatinine 1.02 0.50 - 1.10 mg/dL LAB CHEMISTRY METHOD 03/08/2025 2:46 PM [facility] eGFR 77 >=60 mL/min/1. 73m2 LAB CHEMISTRY METHOD 03/08/2025 2:46 PM [facility] Comment:Calculation based on the Chronic Kidney Disease Epidemiology Collaboration (CKD-EPI) equation refit without adjustment for race. BUN/Creatinine Ratio 21.6 LAB CHEMISTRY METHOD 03/08/2025 2:46 PM [facility] [facility] Albumin 2.9(L) 3.2 - 5.0 g/dL LAB CHEMISTRY METHOD 03/08/2025 2:46 PM [facility] Calcium 9.1 8.5 - 10.5 mg/dL LAB CHEMISTRY METHOD 03/08/2025 2:46 PM [facility] Phosphorus 3.9 2.5 - 4.5 mg/dL LAB CHEMISTRY METHOD 03/08/2025 2:46 PM [facility] Blood Venous blood specimen / Unknown Venipuncture / Unknown 03/08/2025 10:22 AM EDT 03/08/2025 10:23 AM EDT us Charity SCHWAB LAB BLOOD ORDERABLES Final Re sult KEON MORR[place] ([facility]) [facility] [address] [place] [address], [place] [phone] * MR Abdomen wo and w Contrast [...] Signed Date: 03/05/2025 10:17 ET Workstation ID: [id number] Transcribed By: Self Edit Transcribed Date: 03/05/2025 [...] Signed Date: 03/05/2025 10:17 ET Workstation ID: [id number] Transcribed By: Self Edit Transcribed Date: 03/05/2025 [...] LAB CHEMISTRY METHOD 02/01/2025 6:51 PM EDT [facility] Triglycerides 44 0 - 150 mg/dL LAB CHEMISTRY METHOD 02/01/2025 6:51 PM EDT [facility] HDL 100 >=40 mg/dL LAB CHEMISTRY METHOD 02/01/2025 6:51 PM EDT [facility] LDL Calculated 98 0 - 100 mg/dL LAB CHEMISTRY METHOD 02/01/2025 6:51 PM EDT [facility] Comment:Estimated LDL Calcul ated using equation: Total cholesterol - HDL cholesterol - (Triglycerides/5) VLDL Cholesterol Miles 8.8 mg/dL LAB CHEMISTRY METHOD 02/01/2025 6:51 PM EDT [facility] Non HDL Chol. (LDL+VLDL) 107 <145 mg/dL LAB CHEMISTRY METHOD 02/01/2025 6:51 PM EDT [facility] Chol/HDL Ratio 2.1 0.0 - 4.4 LAB CHEMISTRY METHOD 02/01/2025 6:51 PM T [facility] Blood Venous blood specimen / Unknown Venipuncture / Unknown 02/01/2025 12:49 PM EDT 02/01/2025 12:49 PM EDT us Rebecca Encinas MD LAB BLOOD ORDERABLES Final Resul t [facility] [address] [place] [address], * (ABNORMAL) Hemoglobin A1c (02/01/2025 12:49 PM EDT) Hemoglobin A1C 8.5(H) <6.5 % LAB CHEMISTRY METHOD 02/01/2025 10:19 PM EDT [facility] Mean Bld Glu Estim. 197 mg/dL LAB CHEMISTRY METHOD 02/01/2025 10:19 PM EDT [facility] Blood Venous blood specimen / Unknown Venipuncture / Unknown 02/01/2025 12:49 PM EDT 02/01/2025 12:49 PM EDT Rebecca Encinas MD LAB BLOOD ORDERABLES Final Resul t Performing Organization Address City/[facility]/ZIP Co de Phone Number [facility] [address] [place] [address], [place] [phone] * Chlamydia trachomatis and Neisseria gonorrhoeae molecular study (07/27/2024 3:19 PM EST) [facility] Neisseria gonorrhoeae PCR Negative Negative LAB [...] GENERAL ORDERABLES Final Result Performing Organization Address [facility]/ZIP Co de Phone Number [facility] [address] [place] [address], [place] [phone] * HIV Screening (11/23/2020) Pathologist [facility] HIV Screening abstracted us Historical Provider HEALTH MAINTENANCE Final Result * Hepatitis C Screening (11/23/2020) [facility] Hepatitis C Screening abstracted us Historical Provider HEALTH MAINTENANCE Final Result * Pap smear (04/12/2020) 04/12/2020 Narrative HISTORICAL TESTING LAB RESULTING AGENCY - 04/14/2020 12:26 PM EST [id number] THINPREP PAP, IMAGED: NEGATIVE FOR SQUAMOUS INTRAEPITHELIAL [...] Most Recently Relevant to Health Maintenance Insurance [facility] Care Teams Traffic Controller Cable Relationship Specialty Start Date End Date Rebecca Encinas MD [address] [place] [address] PCP - General Internal Medicine 09/10/24
== END 2025-05-04 10:46 | disposition home or self-care (01) ==
LOC: HO.ENCR 10:05
PROVIDERS: PCP Internal Medicine; Visit Provider Internal Medicine Endocrinology, Diabetes & Metabolism
DX: E10.21 Type 1 diabetes mellitus with diabetic nephropathy (principal)
CPT/HCPCS: 99214

== ENCOUNTER → 2025-05-04 10:04 | Outpatient (BNVA) | payer OTHER, SELFPAY | PROVIDERS: PCP Internal Medicine; Visit Provider Internal Medicine Endocrinology, Diabetes & Metabolism | DX: E10.21 Type 1 diabetes mellitus with diabetic nephropathy (principal); I10 Essential (primary) hypertension; R60.0 Localized edema; R30.0 Dysuria; Z79.4 Long term (current) use of insulin | CPT/HCPCS: 82947; 99212 ==

== ENCOUNTER 2025-05-04 13:48 | Outpatient (AMB) | payer OTHER, SELFPAY ==
[2025-05-04 13:51] VITALS: BP 170/110; PULSE 82; O2SAT 95; BMI 40.5
--- NOTE | 2025-05-04 13:51 | HO.NEPHOV_ITS ---
Vital Signs 05/04/25 13:51 Height 5 ft 2 in Weight 221 lb 6 oz BMI 40.5 BP 170/110 H Blood Pressure Location Rt brachial Position Sitting Pulse 82 Pulse Source Pulse Oximeter Pulse Oximetry (%) 95 Oxygen Delivery Method Room Air Intake Visit Reasons: 2wks f/u w/labs-Conf Motorcycle Builder Required: No Accompanied by: Self / Same As Patient Allergies Sulfa (Sulfonamide Antibiotics) (SULFA (SULFONAMIDE ANTIBIOTICS)) Allergy (Unknown, Verified 05/04/25 13:51) HIVES clindamycin Allergy (Verified 05/04/25 13:51) Hives fish derived (fish) Allergy (Verified 05/04/25 13:51) Anaphylaxis HPI Comments Details: 29-year-old female with type 1 diabetes, hypertension and prior alcohol/cocaine use was seen in F/U for diabetic nephropathy. She recently had DKA and was in [facility]. She had KOSTAS at that time which resolved to baseline when she was D/Miko. She has H/O cocaine, alcohol and marijuana use. She feels improved but is concerned about her proteinuria. She has been having GI issues from gastropathy and is followed by GI. She has been having edema. Her BP is not well controlled now. She has been having dysuria and hematuria. She did not have any other new complaints. [facility] Medical History Chest pain Type 1 diabetes Hypertension 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 Cocaine use Surgical History No pertinent past surgical history Family History Father Hypertension Mother Hypertension Diabetes Social History Household Members: Family Housing: House Do you presently have visiting nurse or other home services: No Alcohol intake: current Alcohol intake frequency: holidays/special occasions only Patient Tobacco Use Status: Never used Tobacco Substance Use Type: Marijuana service: No Review of Systems Const All systems reviewed & are unremarkable except as noted in HPI and below Physical Exam Vital Signs: Last Vital Signs Pulse 82 05/04/25 13:51 BP 170/110 H 05/04/25 13:51 Pulse Ox 95 05/04/25 13:51 Oxygen Delivery Method Room Air 05/04/25 13:51 BMI result Body Mass Index 40.5 Const General: comfortable and no acute distress Orientation/consciousness: patient oriented x3 HEENT Head: Yes normocephalic Mouth: Normal oral and palatal mucosa present Eyes EOM: EOMs intact bilaterally Neck Neck: Yes supple Resp Auscultation: clear to auscultation bilaterally Cardio Jugular venous distension: no JVD Rate: regular rate GI Palpation (GI): Soft to palpation Auscultation: normal bowel sounds General: Yes no CVA tenderness Back/Spine/Pelvis Back: no CVA tenderness Skin General skin exam: no rashes or lesions noted Neuro General: patient oriented x3 and moves all extremities Extrem General: Yes no pedal edema Results Reviewed Nephrology Results: Sodium, (135-145) 138 mmol/L 05/02/25 Potassium, (3.3-5.1) 5.1 mmol/L 05/02/25 Chloride, (96-108) 109 mmol/L H 05/02/25 Carbon Dioxide, (22-29) 24 mmol/L 05/02/25 BUN, (9-16) 22 mg/dL H 05/02/25 Creatinine, (0.5-1.4) 1.00 mg/dL 05/02/25 Calcium, (8.4-10.2) 8.4 mg/dL Δ 05/02/25 Urine Creatinine 83.04 mg/dL 02/23/25 Protein/Creatinin Ratio, (<0.2) 8.60 H 02/23/25 Assessment & Plan Assessment & Plan (1) Hypertension: Code(s): I10 - Essential (primary) hypertension Category: Medical Qualifiers: Hypertension type: primary hypertension Qualified Code(s): I10 - Essential (primary) hypertension (2) Diabetic nephropathy: Code(s): E11.21 - Type 2 diabetes mellitus with diabetic nephropathy Category: Medical Qualifiers: Diabetes mellitus type: type 1 Qualified Code(s): E10.21 - Type 1 diabetes mellitus with diabetic nephropathy (3) Edema: Code(s): R60.9 - Edema, unspecified Category: Medical Qualifiers: Edema type: localized Qualified Code(s): R60.0 - Localized edema (4) Dysuria: Code(s): R30.0 - Dysuria Category: Medical Plan Type 1 DM with diabetic nephropathy Has Diastolic dysfunction by ECHO Has significant proteinuria & retinopathy Renal function normal; Needs to abstain from cocaine( already has) D/C Amlodipine; Increase lasix 40 mg bid hydralazine 25 mg bid; Isosorbide 60 mg daily If more medications are needed for BP control, will add Diltiazem) ( Diltiazem also has anti proteinuric effect) Shall follow up in office in 1 weeks; Answered all questions Orders: Orders Urine Culture Today R30.0 - Dysuria Medications: New hydralazine 25 mg PO BID 60 tabs 3RF 30 days isosorbide mononitrate ER 60 mg PO DAILY 30 tabs 3RF Changed From losartan 200 mg (2 x 100 mg) PO DAILY 180 tabs 3RF To losartan 100 mg PO DAILY 90 tabs 3RF 90 days From furosemide (Lasix) 20 mg PO DAILY 30 tabs 5RF edema To furosemide 40 mg PO BID 60 tabs 5RF edema 30 days Discontinued amlodipine Discontinued Reason: Doctor's Order 10 mg See Protocol PO DAILY@1999 30 tabs 0RF Coding Level of Care Code Est Pt Level 4 (09294) Diagnoses Primary hypertension I10 Hypertension type: primary hypertension 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 Localized edema R60.0 Edema type: localized Dysuria R30.0
--- OUTSIDE RECORDS SUMMARY | 2025-05-04 16:32 | XMS_ITS | Encounter Summary ---
Author Organization [facility] Prior to 04/02/2024 Address [address] [place] [address] Care Team Providers Care Purchasing Director Name Role Phone Jinny Sanchez MD Primary Care Provider Un available Community, Pcp Primary Care Provider Rebecca Jimenez MD Primary Care Provider [phone] Reason for Visit * Reason Onset Date Comments REFERRAL 05/27/2018 Physiatry Encounter Details Date Type Department Care Team Description 05/27/2018 Telephone Physiatry - [address] [address] Sam Estrella PA-C REFERRAL (Physiatry) Social History Tobacco Use Types Packs/Day Years [...] encounter Miscellaneous Notes * Telephone Encounter - Lizytima Burgess - 05/27/2018 9:42 AM EST Patient was referred to the Physiatry department. Two phone calls were made and a letter was sent but patient has not responded. No further action will be taken with this referral. documented in this encounter Plan of Treatment Not on file documented as of this encounter Visit Diagnoses Not on filedocumented in this encounter Care Teams Purchasing Director Relationship Specialty Start Date End Date Jinny Sanchez MD PCP - General Internal Medicine 12/01/13 [facility] Pcp PCP - General Internal Medicine 03/11/22 08/04/22 Rebecca Encinas MD [address] [place] [id number] PCP - General Internal Medicine 08/05/22 documented as of this encounter
--- OUTSIDE RECORDS SUMMARY | 2025-05-04 16:32 | XMS_ITS | Encounter Summary ---
Author Organization [facility] Prior to 04/02/2024 Address [address] [place] [address] Care Team Providers Care Sales Agent Trading Stamps Name Role Phone Jinny Louis MD Primary Care Provider Un available Community, Pcp Primary Care Provider Rebecca Jimenez MD Primary Care Provider [phone] Reason for Visit * Reason Onset Date Comments Disassembler Product Feedback 07/08/[address] [facility] [address] Castro Encounter Details Date Type Department Care Team Description 07/08/2017 Telephone Pediatrics - [address] [address] Jinny Louis MD Disassembler Product Feedback ([facility] Dr[facility] Castro) Social History Tobacco Use Types [...] LOUIS Submitter Type: Provider : 1995 Referral (#[id number]) Specialty Care Review Type: Initial Certification Status : Certified in total Service Type : Medical Care Place Of Service : Other Place of Service Visits : 6 Service Date : 07/03/2017-07/03/2018 Service Providers Provider Name ID Provider Type JONATAN CASTRO NPI : [id number] Service Provider Request via fax. Referral faxed to [phone] documented in this encounter Plan of Treatment Not on file documented as of this encounter Visit Diagnoses Not on filedocumented in this encounter Care Teams Sales Agent Trading Stamps Relationship Specialty Start Date End Date Jinny Louis MD PCP - General Internal Medicine 12/01/13 [facility] Pcp PCP - General Internal Medicine 03/11/22 08/04/22 Rebecca Encinas MD [address] [place] [id number] PCP - General Internal Medicine 08/05/22 documented as of this encounter
--- OUTSIDE RECORDS SUMMARY | 2025-05-04 16:32 | XMS_ITS | Encounter Summary ---
Author Organization [facility] Prior to 04/02/2024 Address [address] [place] [address] Care Team Providers Care Tennis Court Attendant Name Role Phone Jinny Sanchez MD Primary Care Provider Un available Community, Pcp Primary Care Provider Rebecca Jimenez MD Primary Care Provider [phone] Reason for Visit * Reason Onset Date Comments Faxed Refill 11/12/2019 medroxyPROGESTER one (DEPO-PROVERA) 150 MG/ML injection Encounter Details Date Type Department Care Team Description 11/12/2019 Refill OBGYN - [place] [address] [place] [address] Yolanda Reid CN [address] [place] [address] Faxed Refill (medroxyPROGESTERone (DEPO-PROVERA) 150 MG/ML injection) [...] EDT WHEN WAS THE PATIENTS LAST ANNUAL RETORT SETTER EXAM? 07/31/18 Does patient have an upcoming [...] [facility] / [facility] / Product Type: POS [id number] documented in this encounter Plan of Treatment Not on file documented as of this encounter Visit Diagnoses Not on filedocumented in this encounter Care Teams Tennis Court Attendant Relationship Specialty Start Date End Date Jinny Sanchez MD PCP - General Internal Medicine 12/01/13 [facility], Pcp PCP - General Internal Medicine 03/11/22 08/04/22 Rebecca Encinas MD [address] [place], [place] [phone] PCP - General Internal Medicine 08/05/22 documented as of this encounter
--- OUTSIDE RECORDS SUMMARY | 2025-05-04 16:32 | XMS_ITS | Encounter Summary ---
Author Organization [facility] Prior to 04/02/2024 Address [address] [place] [address] Care Team Providers Care Hauling Contractor Name Role Phone Jinny Sanchez MD Primary Care Provider Un available [facility], Pcp Primary Care Provider Rebecca Jimenez MD Primary Care Provider [phone] Reason for Visit * Reason Comments E-prescribe Rx Request Encounter Details Date Type Department Care Team Description 05/18/2018 Refill [facility] [address] [place] [address] Annie Kulkarni CNM E-prescribe Rx Request Social [...] N/A Patients current insurance carrier is: Payor: [facility] / Plan: POS [facility] / Product Type: POS [id number] documented in this encounter Plan of Treatment Not on file documented as of this encounter Visit Diagnoses Not on filedocumented in this encounter Care Teams Hauling Contractor Relationship Specialty Start Date End Date Jinny Sanchez MD PCP - General Internal Medicine 12/01/13 [facility] PCP - General Internal Medicine 03/11/22 08/04/22 Rebecca Encinas MD [address] [place] [id number] PCP - General Internal Medicine 08/05/22 documented as of this encounter
--- OUTSIDE RECORDS SUMMARY | 2025-05-04 16:32 | XMS_ITS | Encounter Summary ---
Author Organization [facility] Prior to 04/02/2024 Address [address] [place] [address] Care Team Providers Care Xerox Machine Operator Name Role Phone Jinny Sanchez MD Primary Care Provider Un available Community, Pcp Primary Care Provider Rebecca Jimenez MD Primary Care Provider [phone] Reason for Visit * Reason Onset Date Comments refill request 02/04/2020 Encounter Details Date Type Department Care Team Description 02/04/2020 Refill Medicine/Pediatrics - [address] [address] Jinny Sanchez MD refill request Social History Tobacco Use Types [...] encounter Miscellaneous Notes * Telephone Encounter - CHELSEY Terrazas, RN - 02/04/2020 4:51 PM EDT Last annual 07/2018, pt needs to book annual, last appt in October was for depo shot * Telephone Encounter - Marcie Marcus - 02/04/2020 10:03 AM EDT WHEN WAS THE PATIENTS LAST ANNUAL PRINTING AGENT EXAM? 11/15/19 Does patient have an upcoming appointment? No (THE MEDICATION REQUESTED IS ON THE MED LIST ABOVE) Did you check the Pharmacy information above?: YES Indicate how soon the patient needs the script: BY THE END OF THE DAY Patient would like script to be: E-PRESCRIBED/FAXED TO PHARMACY Is the doctor here today?: NO Can the message wait until the doctor returns?: YES Has the patient been told that the prescription will not be filled until the end of the day? NO Payor: [email or web address] / Plan: POS $20 [place] / Product Type: POS [id number] Pt was told at last appointment that script would be filled so that she could pickling solution maker and give to self at home. Wondering if this is still the cast. Waiting for a call back. documented in this encounter Plan of Treatment Not on file documented as of this encounter Visit Diagnoses Not on filedocumented in this encounter Care Teams Xerox Machine Operator Relationship Specialty Start Date End Date Jinny Sanchez MD PCP - General Internal Medicine 12/01/13 [facility] PCP - General Internal Medicine 03/11/22 08/04/22 Rebecca Encinas MD [address] [place] [id number] PCP - General Internal Medicine 08/05/22 documented as of this encounter
--- OUTSIDE RECORDS SUMMARY | 2025-05-04 16:32 | XMS_ITS | Encounter Summary ---
Author Organization [facility] Prior to 04/02/2024 Address [address] [place] [address] Care Team Providers Care Sheet Mill Supervisor Name Role Phone Jinny Sanchez MD Primary Care Provider Un available [facility], Pcp Primary Care Provider Rebecca Jimenez MD Primary Care Provider [phone] Encounter Details Date Type Department Care Team Description 07/03/2017 Handle Rounder Operator Report Medical Records [address] [place], [place] [id number] Marixa Griffin, DO Social History Tobacco Use [...] on filedocumented in this encounter Care Teams Sheet Mill Supervisor Relationship Specialty Start Date End Date Jinny Sanchez MD PCP - General Internal Medicine 12/01/13 [facility], Pcp PCP - General Internal Medicine 03/11/22 08/04/22 Rebecca Encinas MD [address] [place] [id number] PCP - General Internal Medicine 08/05/22 documented as of this encounter
--- OUTSIDE RECORDS SUMMARY | 2025-05-04 16:32 | XMS_ITS | Encounter Summary ---
Author Organization [facility] Prior to 04/02/2024 Address [address] [place] [address] Care Team Providers Care Asphalt Screed Operator Name Role Phone Jinny Sanchez MD Primary Care Provider Un available [facility], Pcp Primary Care Provider Rebecca Jimenez MD Primary Care Provider [phone] Encounter Details Date Type Department Care Team Description 03/31/2015 Transfer Records Medical Records [address] [place] [address] Abstract, Provider Social History Tobacco Use Types Packs/Day Years Used Date Smoking Tobacco: Every Day Cigarettes 0.5 Smokeless Tobacco: Never Comments:patient raza Alcohol Use [...] on filedocumented in this encounter Care Teams Asphalt Screed Operator Relationship Specialty Start Date End Date Jinny Sanchez MD PCP - General Internal Medicine 12/01/13 [facility], Pcp PCP - General Internal Medicine 03/11/22 08/04/22 Rebecca Encinas MD [address] [place] [address] [id number] PCP - General Internal Medicine 08/05/22 documented as of this encounter
--- OUTSIDE RECORDS SUMMARY | 2025-05-04 16:32 | XMS_ITS | Encounter Summary ---
Author Organization [facility] Prior to 04/02/2024 Address [address] [place] [address] Care Team Providers Care Ruby Developer Name Role Phone Jinny Sanchez MD Primary Care Provider Un available Community, Pcp Primary Care Provider Rebecca Jimenez MD Primary Care Provider [phone] Reason for Visit * Reason Onset Date Comments Appointment-Internal Referral 05/27/2018 gerardo Encounter Details Date Type Department Care Team Description 05/27/2018 Telephone [facility] - [address] [address] Ryan Cuellar PA-C [address] [place] [address] Appointment-Internal Referral (Chiro) Social History Tobacco Use Types Packs/Day Years [...] * Telephone Encounter - Keily Blanco - 05/27/2018 10:58 AM EST 2 calls and a letter with no response. FYI to provider documented in this encounter Plan of Treatment Not on file documented as of this encounter Visit Diagnoses Not on filedocumented in this encounter Care Teams Ruby Developer Relationship Specialty Start Date End Date Jinny Sanchez MD PCP - General Internal Medicine 12/01/13 [facility] PCP - General Internal Medicine 03/11/22 08/04/22 Rebecca Encinas MD [address] [place] [address] PCP - General Internal Medicine 08/05/22 documented as of this encounter
--- OUTSIDE RECORDS SUMMARY | 2025-05-04 16:32 | XMS_ITS | Encounter Summary ---
Author Organization [facility] Prior to 04/02/2024 Address [address] [place] [address] Care Team Providers Care Construction Field Engineer Name Role Phone Jinny Sanchez MD Primary Care Provider Un available [facility], Pcp Primary Care Provider Rebecca Jimenez MD Primary Care Provider [phone] Encounter Details Date Type Department Care Team Description 07/12/2020 Alarm Investigator Report Medical Records [address] [place] [id number] [place] [address] Endocrine And Diabetes Social History Tobacco Use [...] on filedocumented in this encounter Care Teams Construction Field Engineer Relationship Specialty Start Date End Date Jinny Sanchez MD PCP - General Internal Medicine 12/01/13 [facility], Pcp PCP - General Internal Medicine 03/11/22 08/04/22 Rebecca Encinas MD [address] [place] [id number] PCP - General Internal Medicine 08/05/22 documented as of this encounter
--- OUTSIDE RECORDS SUMMARY | 2025-05-04 16:32 | XMS_ITS | Encounter Summary ---
Author Organization [facility] Prior to 04/02/2024 Address [address] [place] [address] Care Team Providers Care Services Advisor Name Role Phone Jinny Sanchez MD Primary Care Provider Un available [facility], Pcp Primary Care Provider Rebecca Jimenez MD Primary Care Provider [phone] Encounter Details Date Type Department Care Team Description 11/04/2014 Release of Information Medical Records [address] [place] [id number] Abstract, Provider Social History Tobacco Use Types [...] on filedocumented in this encounter Care Teams Services Advisor Relationship Specialty Start Date End Date Jinny Sanchez MD PCP - General Internal Medicine 12/01/13 [facility], Pcp PCP - General Internal Medicine 03/11/22 08/04/22 Rebecca Encinas MD [address] [place] [id number] PCP - General Internal Medicine 08/05/22 documented as of this encounter
--- OUTSIDE RECORDS SUMMARY | 2025-05-04 16:32 | XMS_ITS | Encounter Summary ---
Author Organization [facility] Prior to 04/02/2024 Address [address] [place] [address] Care Team Providers Care Filler Block Inserter Remover Name Role Phone Jinny Sanchez MD Primary Care Provider Un available [facility], Pcp Primary Care Provider Rebecca Jimenez MD Primary Care Provider [phone] Reason for Visit * Reason Onset Date Comments TEST RESULTS 08/06/2016 Encounter Details Date Type Department Care Team Description 08/06/[address] [id number] Annie Kulkarni CNM TEST RESULTS Social History [...] 2016 8:44 AM ------ Message from: ANNIE LANIEZ C.N.M. Created: FriAug 06, 2016 8:16 AM [...] on filedocumented in this encounter Care Teams Filler Block Inserter Remover Relationship Specialty Start Date End Date Jinny Sanchez MD PCP - General Internal Medicine 12/01/13 [facility] Pcp PCP - General Internal Medicine 03/11/22 08/04/22 Rebecca Encinas MD [address] [place] [address] PCP - General Internal Medicine 08/05/22 documented as of this encounter
--- OUTSIDE RECORDS SUMMARY | 2025-05-04 16:32 | XMS_ITS | Encounter Summary ---
Author Organization [facility] Prior to 04/02/2024 Address [address] [place] [address] Care Team Providers Care Supervisor Packing Name Role Phone Jinny Sanchez MD Primary Care Provider Un available [facility], Pcp Primary Care Provider Rebecca Jimenez MD Primary Care Provider [phone] Encounter Details Date Type Department Care Team Description 12/28/2015 Meter Reader Chief Report Medical Records [address] [place], [place] [id number] Marixa Griffin, DO Social History Tobacco Use [...] filedocumented in this encounter Care Teams Supervisor Packing Relationship Specialty Start Date End Date Jinny Sanchez MD PCP - General Internal Medicine 12/01/13 [facility], Pcp PCP - General Internal Medicine 03/11/22 08/04/22 Rebecca Encinas MD [address] [place] [id number] PCP - General Internal Medicine 08/05/22 documented as of this encounter
== END 2025-05-04 14:18 | disposition home or self-care (01) ==
LOC: HO.HKA 13:49
PROVIDERS: PCP Internal Medicine; Visit Provider Internal Medicine Nephrology
DX: I10 Essential (primary) hypertension (principal); E10.21 Type 1 diabetes mellitus with diabetic nephropathy; R60.0 Localized edema; R30.0 Dysuria
CPT/HCPCS: 99214

== ENCOUNTER 2025-05-05 09:52 | Outpatient (REF) | payer OTHER, SELFPAY ==
[2025-05-05 11:24] LABS: Anion Gap 12 (12-20); Blood Urea Nitrogen 18 mg/dL (9-16); Carbon Dioxide 26 mmol/L (22-29); Chloride 107 mmol/L (96-108); Estimated Glomerular Filt Rate > 60; Potassium 4.7 mmol/L (3.3-5.1); Sodium 140 mmol/L (135-145)
--- OUTSIDE RECORDS SUMMARY | 2025-05-05 11:33 | XMS_ITS | Encounter Summary ---
Author Organization [facility] Address [address] [place] [address] Care Team Providers Care Shop Supervisor Name Role Phone Rebecca Encinas MD Primary Care Provider [phone] Encounter Details Date Type Department Care Team ([facility] Contact Info) Description 03/07/2025 Results Follow-Up Gastroenterology - Need[place] [address] [facility] 175 [facility] [address] [place] [phone] Charity Wall PA 299 [facility] [address] [place] [address] Social History Tobacco Use Types Packs/Day Years [...] Upcoming Encounters Date Type Department Care Team ([facility] Contact Info) Description 05/10/2025 9:00 AM EST Office Visit [facility] Hematology Oncology [address] [place] [phone] Tess Sams PA [address] [place] [address] 05/16/2025 8:50 AM EST Office Visit Gastroenterology - [address] [facility] 299 [facility] [address] [place] [phone] Charity Wall PA 299 [facility] [address] [place] [address] 06/23/2025 2:00 PM EST Office Visit Adult Medicine [facility] [address] [place] [address] Rebecca Encinas MD [address] [place], [place] 10/12/2025 8:15 AM EDT Office Visit Orthopedic Surgery - Need[place] [address] [phone] Wei Sheppard, DPDehsaun [address] [phone] documented as of this encounter Visit Diagnoses Not on filedocumented in this encounter Additional Health Concerns Assessment Noted Time PHQ-9 Depression Total Score: 11 025 2:47 PM EST documented as of this encounter Care Teams Shop Supervisor Relationship Specialty Start Date End Date Rebecca Encinas MD [address] [place] [address] PCP - General Internal Medicine 09/10/24 documented as of this encounter
--- OUTSIDE RECORDS SUMMARY | 2025-05-05 11:33 | XMS_ITS | Clinical Summary ---
Author Organization [facility] Address [address] [place] [address] Phone Care Team Providers Care Electric Organ Assembler Name Role Phone Rebecca Encinas MD Primary Care Provider [phone] Allergies Active Allergy Reactions Criticality Noted Date [...] HOURS. 9 tablet 1 025 2024 Discontinued Active Problems Problem Noted [...] 1 diabetes mellitus wit h ophthalmic complication ([facility] V24, [facility] V28) 06/25/2024 Depression, major, recurrent , moderate ([facility] V24, [facility] V28) 05/11/2024 Obesity 05/11/2024 Tobacco use [...] PM EST Office Visit Orthopedic Surgery - [place] [address] [facility] [address] [place] [phone] Wei Sheppard, DPM Dermatophytosis of nail (Primary Dx); Type 1 diabetes mellitus with mononeuropathy ([facility] V24, [facility] V28) 04/05/2025 10:00 AM EST Lab Draw Station - [facility] [address] [facility] [address] [place] [phone] Elevated platelet count; Thrombocytosis; Leukocytosis, unspecified type; Iron deficiency anemia, unspecified iron deficiency anemia type 04/05/2025 9:30 AM EST Office Visit [facility] Hematology Oncology [address] [place] [address] Tess Sams PA Elevated platelet count (Primary Dx) 03/22/2025 1:00 PM EDT Office Visit [facility] Hematology Oncology [address] [place] [phone] Tess Sams PA Elevated platelet count (Primary Dx) 03/17/2025 8:22 AM EDT - 03/17/2025 11:59 PM EDT Hospital Encounter [facility] Nuclear Medicine [address] [place] [address] Nausea and vomiting, unspecified vomiting type; Gastroesophageal reflux disease, unspecified whether esophagitis present; LLQ abdominal pain Discharge Disposition: Home or Self Care 03/12/2025 Results Follow-Up [address]astroenter[address] [phone] Charity Wall PA 03/10/2025 2:13 PM EDT - 03/10/2025 11:59 PM EDT Hospital Encounter [facility] CT Scan [address] [place] [phone] Nausea and vomiting, unspecified vomiting type; Gastroesophageal reflux disease, unspecified whether esophagitis present; LLQ abdominal pain Discharge Disposition: Home or Self Care 03/10/2025 9:00 AM EDT Office Visit [address] [phone] Rebecca Encinas MD Hospital discharge follow-up (Primary Dx); 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, macular edema presence unspecified, unspecified retinopathy severity (CMS/HCC V24, CMS/HCC V28); Primary hypertension; Chronic diastolic heart failure (CMS/HCC V24, CMS/HCC V28); Generalized anxiety disorder 03/08/2025 8:50 AM EDT Office Visit Gastroenterology [facility] [address] [phone] Charity Wall PA Nausea and vomiting, unspecified vomiting type (Primary Dx); Gastroesophageal reflux disease, unspecified whether esophagitis present; LLQ abdominal pain; High platelet count 03/07/2025 Results Follow-Up Gastroenterology [facility] [address] [facility] [address] [facility] [address] [place] [phone] Charity Wall PA 03/07/2025 Telephone Gastroenterology [facility] [address] [facility] [address] [phone] Charity Wall PA 02/28/2025 Telephone Adult Medicine [facility] [address] [place] [phone] Rebecca Encinas MD 02/23/2025 9:46 AM EDT - 02/23/2025 11:59 PM EDT Hospital Encounter [facility] MRI [address] [place] [phone] Gastroesophageal reflux disease, unspecified whether esophagitis present; Nausea and vomiting, unspecified vomiting type Discharge Disposition: Home or Self Care 02/17/2025 Telephone Adult Medicine [facility] [address] [place] [address] Rebecca Encinas MD from Last 3 Months Immunizations Immunization Administration Dates Next Due DTaP (Infanrix) 6wks to less than 7yo ,09/03/1999,05/04/1998,1997,1997 [id number] (Pentacel) 2mo to less than 5yo 09/03/1999,05/04/1998,03/01/1998,1997 [...] ENDOSCOPY 2007 PROCEDURE: UPPER GI ENDOSCOPY/EXAM; COMMENT: [facility] Medical History Medical History Date Comments Type 1 diabetes mellitus (CM S/HCC V24, CMS/HCC V28) DX:Type 1 diabetes mellitus (HCC); COMMENT: [facility] Endocrinology. Dr. Griffin. Dx age 8 [...] Description 05/10/2025 9:00 AM EST Office Visit [facility] Hematology Oncology [address] [place] [phone] Tess Sams PA [address] [place] [address] 05/16/2025 8:50 AM EST Office Visit Gastroenterology - [address] [place] [phone] Charity Wall PA [address] [address] 06/23/2025 2:00 PM EST Office Visit Adult Medicine [address] [phone] Rebecca Encinas MD [address] [place] [phone] 10/12/2025 8:15 AM EDT Office Visit Orthopedic Surgery [facility] [address] [phone] Wei Sheppard, DPDeshaun [address] [facility] [address] [place] [phone] Health Maintenance Due Date Last Done [...] 1 diabetes mellitus without complications (CMS/HCC V24, CMS/[facility] V28) RENAL FUNCTION PANEL Routine 03/08/2025 10:22 [...] EDT Type 1 diabetes mellitus without complication (CMS/[facility] V24, CMS/[facility] V28) LIPID PANEL WITH REFLEX TO DIRECT LDL Routine 02/01/2025 12:49 PM EDT Type 1 diabetes mellitus without complication (CMS/HCC V24, CMS/[facility] V28) CHLAMYDIA TRACHOMATIS AND NEISSERIA GONORRHOEAE PCR Routine 07/27/2024 3:19 PM EST Screen for STD (sexually transmitted disease) HM HEPATITIS C SCREENING Routine 11/23/2020 HM HIV SCREENING Routine 11/23/2020 PAP SMEAR Routine 04/12/2020 from Last 3 Months or Most Recently Relevant to Health Maintenance Results * MPL mutation analysis (04/05/2025 9:59 AM EST) Pathologist [facility] Clinical Indication na 04/13 1:39 AM EST [...] hematologic features, includes BCR-ABL1 rearrangement (test code 06262 or 20208K) or mutational analysis of JAK2 V617F (polycythemia vera (PV)/ET/PMF, 20971), CALR (ET/PMF, 55256), JAK2 exon 12 (PV, 54684) or CSF3R (chronic neutrophilic leukemia, 64624). Residual material from this sample may be used except for BCR-ABL1 testing; call lab to add. DNA was aligned to GRCh37(hg19) for analysis and transcript ID [id number] was used as reference for MPL sequence. For additional information, please refer to http://education.Dana [employer]/faq/QLD104 (This link is being provided for informational/educational purposes only.) This test was developed and its analytical performance characteristics have been determined by [facility]. It has not been cleared or approved by FDA. This assay has been validated pursuant to the CLIA regulations and is used for clinical purposes. Test Performed at: [facility] [address] [address] Rick Cade MD, PhD, SP Blood Venous blood specimen / Unknown Venipuncture / Unknown 04/05/2025 9:59 AM EST 04/05/2025 11:30 AM EST Tess SCHWAB LAB MOLECULAR DIAGNOSTICS ORD ERABLES Final [place] [address] [place] [address] * Calreticulin mutation analysis (04/05/2025 9:59 AM [...] hematologic features, includes BCR-ABL1 rearrangement (test code 01879 or 12194R) or mutational analysis of JAK2 V617F (polycythemia vera (PV)/ET/PMF, 67129), JAK2 exon 12 (PV, 54755), MPL (ET/PMF, 38652) or CSF3R (chronic neutrophilic leukemia, 63247). Residual material from this sample may be used except for BCR-ABL1 testing; call lab to add. DNA was aligned to GRCh37(hg19) for analysis and transcript ID [id number] was used as reference for CALR sequence. For additional information, please refer to http://education.[employer]/faq/DMU667 (This link is being provided for informational/educational purposes only.) This test was developed and its analytical performance characteristics have been determined by [facility]. It has not been cleared or approved by FDA. This assay has been validated pursuant to the CLIA regulations and is used for clinical purposes. Test Performed at: [facility] [address] [address] Rick Cade MD, PhD, SP Blood Venous blood specimen / Unknown Venipuncture / Unknown 04/05/2025 9:59 AM EST 04/05/2025 11:30 AM EST us Tses SCHAWB LAB MOLECULAR DIAGNOSTICS ORD ERABLES Final Result [place] [address] * (ABNORMAL) CBC auto differential (04/05/2025 9:59 AM EST) Only the most recent of2 resultswithin the time period is included. WBC 9.1 4.8 - 10.8 K/[facility] LAB HEMETOLOGY METHOD 04/05/2025 1:06 PM [facility] RBC 4.20 3.80 - 4.80 M/mcL LAB HEMETOLOGY METHOD 04/05/2025 1:06 PM [facility] Hemoglobin 12.0 11.5 - 16.0 g/dL LAB HEMETOLOGY METHOD 04/05/2025 1:06 PM [facility] Hematocrit 36.8 35.0 - 47.0 % LAB HEMETOLOGY METHOD 04/05/2025 1:06 PM [facility] MCV 86.8 79.0 - 98.0 FL LAB HEMETOLOGY METHOD 04/05/2025 1:06 PM [facility] MCH 28.3 27.0 - 32.0 pcg LAB HEMETOLOGY METHOD 04/05/2025 1:06 PM [facility] MCHC 32.6 32.0 - 37.0 g/dL LAB HEMETOLOGY METHOD 04/05/2025 1:06 PM [facility] RDW 12.4 11.0 - 15.0 % LAB HEMETOLOGY METHOD 04/05/2025 1:06 PM [facility] Platelets 423(H) 130 - 400 K/mcL LAB HEMETOLOGY METHOD 04/05/2025 1:06 PM [facility] MPV 9.2 7.0 - 11.0 FL LAB HEMETOLOGY METHOD 04/05/2025 1:06 PM [facility] NRBC 0.0 <1.0 % LAB HEMETOLOGY METHOD 04/05/2025 1:06 PM [facility] NRBC Absolute 0.00 <0.10 K/mcL LAB HEMETOLOGY METHOD 04/05/2025 1:06 PM [facility] Neutrophils Relative 65.6 % LAB HEMETOLOGY METHOD 04/05/2025 1:06 PM [facility] Lymphocytes Relative 27.9 % LAB HEMETOLOGY METHOD 04/05/2025 1:06 PM [facility] Monocytes Relative 4.4 % LAB HEMETOLOGY METHOD 04/05/2025 1:06 PM [facility] Eosinophils Relative 1.2 % LAB HEMETOLOGY METHOD 04/05/2025 1:06 PM [facility] Basophils Relative 0.7 % LAB HEMETOLOGY METHOD 04/05/2025 1:06 PM [facility] Immature Granulocytes Relative 0.2 % LAB HEMETOLOGY METHOD 04/05/2025 1:06 PM [facility] Neutrophils Absolute 5.99 1.50 - 7.00 K/mcL LAB HEMETOLOGY METHOD 04/05/2025 1:06 PM [facility] Lymphocytes Absolute 2.54 1.00 - 5.00 K/mcL LAB HEMETOLOGY METHOD 04/05/2025 1:06 PM [facility] Monocytes Absolute 0.40 0.20 - 1.00 K/mcL LAB HEMETOLOGY METHOD 04/05/2025 1:06 PM [facility] Eosinophils Absolute 0.11 0.00 - 0.50 K/mcL LAB HEMETOLOGY METHOD 04/05/2025 1:06 PM [facility] Basophils Absolute 0.06 0.00 - 0.20 K/mcL LAB HEMETOLOGY METHOD 04/05/2025 1:06 PM [facility] Immature Granulocytes Absolute 0.02 0.00 - 0.03 K/mcL LAB HEMETOLOGY METHOD 04/05/2025 1:06 PM [facility] Blood Venous blood specimen / Unknown Venipuncture / Unknown 04/05/2025 9:59 AM EST 04/05/2025 11:31 AM EST Tess SCHWAB LAB BLOOD ORDERABLES Final Re sult [facility] [address] [place] [address], * Erythropoietin (04/05/2025 9:59 AM EST) [facility] Erythropoietin 14.2 2.6 - 18.5 mIU/mL 04/07/2025 7:43 PM EST [facility] Comment: Test performed at [facility], [address] , [place] [address] Lacie Cancino MD, PhD - Tableau Report Developer Blood Venous blood specimen / Unknown Venipuncture / Unknown 04/05/2025 9:59 AM EST 04/05/2025 11:31 AM EST Tess SCHWAB LAB BLOOD ORDERABLES Final Re sult Performing Organization Address [facility]/ZIP Co de Phone Number [facility] [address] [place] [address] * Lactate dehydrogenase (04/05/2025 9:59 AM EST) [facility] LDH 190 120 - 246 unit/L LAB CHEMISTRY METHOD 04/05/2025 12:53 PM EST [facility] Blood Venous blood specimen / Unknown Venipuncture / Unknown 04/05/2025 9:59 AM EST 04/05/2025 11:31 AM EST Tess SCHWAB LAB BLOOD ORDERABLES Final Re sult Performing Organization Address City/[facility]/ZIP Co de Phone Number [facility] [address] [place] [address], [place] [phone] * JAK2 gene, V617F mutation, quantitative, molecular study (03/22/2025 2:18 PM EDT) [facility] JAK2 (V617F) Mutation Not detected Not detected [...] characteristics of this procedure were determined by [facility]. This test is performed pursuant to a license agreement with [employer] Test performed at [facility], [address] , [place] [address] Lacie Cancino MD, PhD - Tableau Report Developer Blood Venous blood specimen / Unknown Venipuncture / Unknown 03/22/2025 2:18 PM EDT 03/22/2025 4:39 PM EDT Tess SCHWAB LAB MOLECULAR DIAGNOSTICS ORD ERABLES Final Result CHERY [facility] [address] [place] [address] * Iron and TIBC (03/22/2025 2:18 PM EDT) Pathologist [facility] Iron 72 40 - 150 mcg/dL LAB CHEMISTRY METHOD 03/22/2025 5:14 PM EDT [facility] TIBC 257 250 - 450 mcg/dL LAB CHEMISTRY METHOD 03/22/2025 5:14 PM EDT [facility] Iron Saturation 28 15 - 50 % LAB CHEMISTRY METHOD 03/22/2025 5:14 PM EDT [facility] Blood Venous blood specimen / Unknown Venipuncture / Unknown 03/22/2025 2:18 PM EDT 03/22/2025 5:13 PM EDT Tess Sams SD LAB BLOOD ORDERABLES Final Re sult Performing Organization Address City/[facility]/ZIP Co de Phone Number [facility] [address] [place] [address], [place] [phone] * Ferritin (03/22/2025 2:18 PM EDT) Ferritin 46 8 - 252 ng/mL LAB CHEMISTRY METHOD 03/22/2025 5:13 PM EDT [facility] Blood Venous blood specimen / Unknown Venipuncture / Unknown 03/22/2025 2:18 PM EDT 03/22/2025 5:13 PM EDT [facility] BLOOD ORDERABLES Final Re sult Performing Organization Address [facility]/ZIP Co de Phone Number [facility] [address] [place] [address], [place] [phone] * NM Gastric Emptying Study (03/17/2025 2:16 PM EDT) Anatomical Region Laterality Modality Body Nuclear Medicine 03/17/2025 3:15 PM EDT Impressions 03/17/2025 3:16 PM EDT Normal gastric emptying. -------- FINAL REPORT -------- Dictated By: Nena Cormier Dictated Date: 03/17/2025 15:15 ET Assigned Physician: Nena Cormier Reviewed and Electronically Signed By: Nena Cormier Signed Date: 03/17/2025 15:16 ET Workstation ID: [id number] Transcribed By: Self Edit Transcribed Date: 03/17/2025 [...] Signed Date: 03/17/2025 15:16 ET Workstation ID: [id number] Transcribed By: Self Edit Transcribed Date: 03/17/2025 15:15 ET Charity SCHWAB IMG NM PROCEDURES Final Resul [...] CT abdomen and pelvis with contrast Comparison: MR/KO/TX/SR - MR ABD WO AND W CONTRAST - 02/23/25 10:[address]/KO/TX - CT ABDOMEN OUTSIDE EXAMINATION - 08/09/24 [...] CT abdomen and pelvis with contrast Comparison: MR/KO/TX/SR - MR ABD WO AND W CONTRAST - 02/23/25 10:[address]/KO/TX - CT ABDOMEN OUTSIDE EXAMINATION - 08/09/24 [...] Pickett MD on 03/10/2025 17:47:[address] PROCEDURES Final Resul t * (ABNORMAL) Drug abuse screen expanded with reflex confirmation, urine (03/10/2025 10:23 AM EDT) Amphetamine Screen, Ur Negative Negative LAB CHEMISTRY METHOD 1:54 PM EDT [facility] Comment:Certain OTC medicati ons containing ephedrine, phenylephrine, pseudoephedrine and phenylpropanolamine can cause false positive results. Barbiturate Screen, Ur Positive(A ) Negative LAB CHEMISTRY METHOD 1:54 PM EDT [facility] Benzodiazepine Screen, Ur Negative Negative LAB CHEMISTRY METHOD 1:54 PM EDT [facility] Cocaine Screen, Ur Negative Negative [facility] Opiate Screen, Ur Negative Negative LAB CHEMISTRY METHOD 1:54 PM [facility] Cannabinoid (THC) Screen, Ur Positive(A ) Negative LAB CHEMISTRY METHOD 1:54 PM T [facility] Comment:Specimens from patie nts taking pantoprazole sodium (Protonix) have been shown to produce false positive results. Fentanyl, Ur Negative Negative LAB CHEMISTRY METHOD 1:54 PM [facility] Oxycodone Screen, Ur Negative Negative LAB CHEMISTRY METHOD 1:54 PM [facility] Urine Urine specimen obtained by clean catch procedure / Unknown Non-blood Collection / Unknown 03/10/2025 10:23 AM EDT 03/10/2025 10:23 AM EDT [facility] - 03/10/2025 1:54 PM EDT Assay [...] ORDERABLES Final Resul t Performing Organization Address City/[facility]/ZIP Co de Phone Number [facility] [address] [place] [address], [place] [phone] * (ABNORMAL) Microalbumin creatinine urine ratio (03/10/2025 10:23 AM EDT) Creatinine, Urine 44.0 mg/dL LAB CHEMISTRY METHOD 03/10/2025 1:57 PM EDT [facility] Microalb, Ur 2,260.0(H ) 0.0 - 29.0 mg/L LAB CHEMISTRY METHOD 03/10/2025 1:57 PM EDT [facility] Microalb/Crea t Ratio 5,136(H) <30 mg/g creat LAB CHEMISTRY METHOD 03/10/2025 1:57 PM EDT [facility] Urine Urine specimen obtained by clean catch procedure / Unknown Non-blood Collection / Unknown 03/10/2025 10:23 AM EDT 03/10/2025 10:23 AM EDT Rebecca Encinas MD LAB URINE ORDERABLES Final Resul t Performing Organization Address [facility]/ZIP Co de Phone Number [facility] [address] [place] [address], [place] [phone] * (ABNORMAL) THC, urine, confirmation (03/10/2025 10:23 AM EDT) Tetrahydrocannabinoid (THC) 742(H) Negative ng/mL 03/14/2025 11:04 PM EDT [facility] Tetrahydrocannabinoid (THC)/Creatinine Ratio 1726 11:04 PM EDT [facility] Creatinine 43 20 - 250 mg/dL 03/14/2025 11:04 PM EDT [facility] Adulterants Negative 03/14/2025 11:04 PM EDT [facility] Comment: The urine THC/creatinine ratio is the best monitor to determine the possibility of continued drug usage. With abstinence, the ratio should decrease within one week by a factor of two or more. Confirmation (GC/MS) Decision Limit THC (92-mrm-0-stwfzhh-4-rmrbtkrgouwznyoqgyeh) 3 ng/mL Adulterant Decision Limit: General Oxidants 200 ug/mL The adulterant assay tests for General Oxidants, including Chromates and Nitrites. Adulterants are substances either ingested or added directly to a urine specimen to prevent the detection of drug use. If applicable, any drug confirmation testing reported here was developed and the performance characteristics determined by [facility]. This confirmation testing has not been cleared or approved by the FDA. The laboratory is regulated under CLIA as qualified to perform high-complexity testing. This test is used for patient testing purposes. It should not be regarded as investigational or for research. Test performed at [facility], [address] , [place] [address] Lacie Cancino MD, PhD - Tableau Report Developer Urine Urine specimen obtained by clean catch procedure / Unknown Non-blood Collection / Unknown 03/10/2025 10:23 AM EDT 03/10/2025 1:54 PM EDT us Rebecca Encinas MD LAB URINE ORDERABLES Final Resul t [facility] [address] [place] [address] * (ABNORMAL) Barbiturate, quantitative, urine (03/10/2025 10:23 AM EDT) Amobarbital Confirm, Urine Negative Negative ng/mL 03/14/2025 11:04 PM EDT [facility] Butabarbital Confirm, Urine Negative Negative ng/mL 03/14/2025 11:04 PM EDT [facility] Butalbital Confirm, Urine 108(H) Negative ng/mL 03/14/2025 11:04 PM EDT [facility] Pentobarbital Confirm, Urine Negative Negative ng/mL 03/14/2025 11:04 PM EDT [facility] Phenobarbital Confirm, Urine Negative Negative ng/mL 03/14/2025 11:04 PM EDT [facility] Secobarbital Confirm, Urine Negative Negative ng/mL 03/14/2025 11:04 PM EDT [facility] Creatinine 43 20 - 250 mg/dL 03/14/2025 11:04 PM EDT [facility] Adulterants Negative 03/14/2025 11:04 PM EDT [facility] Comment: Confirmation (GC/MS) Decision Limits Amobarbital [...] developed and the performance characteristics determined by [facility]. This confirmation testing has not been cleared or approved by the FDA. The laboratory is regulated under CLIA as qualified to perform high-complexity testing. This test is used for patient testing purposes. It should not be regarded as investigational or for research. Test performed at [facility], [address], [place] [address] Lacie Cancino MD, PhD - Tableau Report Developer Urine Urine specimen obtained by clean catch procedure / Unknown Non-blood Collection / Unknown 03/10/2025 10:23 AM EDT 03/10/2025 1:54 PM EDT us Rebecca Encinas MD LAB URINE ORDERABLES Final Resul t [facility] [address] [place] [address] * (ABNORMAL) Renal function panel (03/08/2025 10:22 AM EDT) Sodium 138 133 - 145 mmol/L LAB CHEMISTRY METHOD 03/08/2025 2:46 PM EDT [facility] Potassium 5.5 3.5 - 5.5 mmol/L LAB CHEMISTRY METHOD 03/08/2025 2:46 PM EDT [facility] Chloride 107 96 - 110 mmol/L LAB CHEMISTRY METHOD 03/08/2025 2:46 PM [facility] CO2 23 21 - 32 mmol/L LAB CHEMISTRY METHOD 03/08/2025 2:46 PM [facility] Anion Gap 8 3 - 11 LAB CHEMISTRY METHOD 03/08/2025 2:46 PM [facility] Glucose 258(H) 70 - 100 mg/dL LAB CHEMISTRY METHOD 03/08/2025 2:46 PM [facility] BUN 22 5 - 25 mg/dL LAB CHEMISTRY METHOD 03/08/2025 2:46 PM [facility] Creatinine 1.02 0.50 - 1.10 mg/dL LAB CHEMISTRY METHOD 03/08/2025 2:46 PM [facility] eGFR 77 >=60 mL/min/1. 73m2 LAB CHEMISTRY METHOD 03/08/2025 2:46 PM [facility] Comment:Calculation based on the Chronic Kidney Disease Epidemiology Collaboration (CKD-EPI) equation refit without adjustment for race. BUN/Creatinine Ratio 21.6 LAB CHEMISTRY METHOD 03/08/2025 2:46 PM [facility] Albumin 2.9(L) 3.2 - 5.0 g/dL LAB CHEMISTRY METHOD 03/08/2025 2:46 PM [facility] Calcium 9.1 8.5 - 10.5 mg/dL LAB CHEMISTRY METHOD 03/08/2025 2:46 PM [facility] Phosphorus 3.9 2.5 - 4.5 mg/dL LAB CHEMISTRY METHOD 03/08/2025 2:46 PM [facility] Blood Venous blood specimen / Unknown Venipuncture / Unknown 03/08/2025 10:22 AM EDT 03/08/2025 10:23 AM EDT Charity SCHWAB LAB BLOOD ORDERABLES Final Re sult [facility] [address] [place] [address], * MR Abdomen wo and w Contrast [...] Signed Date: 03/05/2025 10:17 ET Workstation ID: [id number] Transcribed By: Self Edit Transcribed Date: 03/05/2025 [...] Signed Date: 03/05/2025 10:17 ET Workstation ID: [id number] Transcribed By: Self Edit Transcribed Date: 03/05/2025 09:27 ET Charity [facility] [place]ED[place] Final Resu lt * External clinical lab (02/23/2025) [facility] LAB BLOOD ORDERABLES Fin al Result * External Diabetic Retina Eye Exam Report (02/21/2025) Anatomical Region Laterality Modality Ultrasound Provider [facility] [place]EDURES Final Result * (ABNORMAL) Lipid panel with reflex to direct LDL (02/01/2025 12:49 PM EDT) Cholesterol 207(H) 0 - 200 mg/dL LAB CHEMISTRY METHOD 02/01/2025 6:51 PM EDT [facility] Triglycerides 44 0 - 150 mg/dL LAB CHEMISTRY METHOD 02/01/2025 6:51 PM EDT [facility] HDL 100 >=40 mg/dL LAB CHEMISTRY METHOD 02/01/2025 6:51 PM EDT [facility] LDL Calculated 98 0 - 100 mg/dL LAB CHEMISTRY METHOD 02/01/2025 6:51 PM EDT [facility] Comment:Estimated LDL Calcul ated using equation: Total cholesterol - HDL cholesterol - (Triglycerides/5) VLDL Cholesterol Miles 8.8 mg/dL LAB CHEMISTRY METHOD 02/01/2025 6:51 PM EDT [facility] Non HDL Chol. (LDL+VLDL) 107 <145 mg/dL LAB CHEMISTRY METHOD 02/01/2025 6:51 PM EDT [facility] Chol/HDL Ratio 2.1 0.0 - 4.4 LAB CHEMISTRY METHOD 02/01/2025 6:51 PM EDT [facility] Blood Venous blood specimen / Unknown Venipuncture / Unknown 02/01/2025 12:49 PM EDT 02/01/2025 12:49 PM EDT us Rebecca Encinas MD LAB BLOOD ORDERABLES Final Resul t [facility] [address] [place] [address], * (ABNORMAL) Hemoglobin A1c (02/01/2025 12:49 PM EDT) Hemoglobin A1C 8.5(H) <6.5 % LAB CHEMISTRY METHOD 02/01/2025 10:19 PM EDT [facility] Mean Bld Glu Estim. 197 mg/dL LAB CHEMISTRY METHOD 02/01/2025 10:19 PM EDT [facility] Blood Venous blood specimen / Unknown Venipuncture / Unknown 02/01/2025 12:49 PM EDT 02/01/2025 12:49 PM EDT Rebecca Encinas MD LAB BLOOD ORDERABLES Final Resul t [facility] [address] [place] [address], [place] [phone] * Chlamydia trachomatis and Neisseria gonorrhoeae molecular study (07/27/2024 3:19 PM EST) [facility] Neisseria gonorrhoeae PCR Negative Negative LAB MOLECULAR [...] ORDERABLES Final Result [facility] [address] [place] [address], [place] [phone] * HIV Screening (11/23/2020) HIV Screening abstracted us Historical Provider HEALTH MAINTENANCE Final Result * Hepatitis C Screening (11/23/2020) Hepatitis C Screening abstracted us Historical Provider HEALTH MAINTENANCE Final Result * Pap smear (04/12/2020) 04/12/2020 Narrative HISTORICAL TESTING LAB RESULTING AGENCY - 04/14/2020 12:26 PM EST [id number] THINPREP PAP, IMAGED: NEGATIVE FOR SQUAMOUS INTRAEPITHELIAL LESION AND MALIGNANCY . ABUNDANT RED BLOOD CELLS ARE PRESENT. GALO SAM BRONSON , CT(ASCP) (CASE ELECTRONICALLY SIGNED 04 14 2020) ADEQUACY: SATISFACTORY ENDOCERVICAL/TRANSFORMATION ZONE COMPONENT PRESENT. SOURCE: THINPREP PAP HPV IF ASCUS, CERVICAL, IMAGED CLINICAL INFORMATION: HPV IF DIAGNOSIS OF ASCUS. HORMONES, PAP HX NEG. Z12.4, Z01.419 us Johan Askew DO LAB CYTOLOGY ORDERABLES Final Result HISTORICAL TESTING LAB RESULTING AGENCY from Last 3 Months or Most Recently Relevant to Health Maintenance Insurance [facility] [employer] Care Teams Electric Organ Assembler Relationship Specialty Start Date End Date Rebecca Encinas MD [address] [place] [phone] PCP - General Internal Medicine 09/10/24
--- OUTSIDE RECORDS SUMMARY | 2025-05-05 11:33 | XMS_ITS | Encounter Summary ---
Author Organization [facility] Address [address] [place] [address] Care Team Providers Care Assistant Branch Manager Name Role Phone Rebecca Encinas MD Primary Care Provider [phone] Encounter Details Date Type Department Care Team ([facility] Contact Info) Description 03/12/2025 Results Follow-Up Gastroenterology - [place] 175 [facility] 175 [facility] [address] [place] [phone] Charity Wall PA 299 [facility] [address] [place] [address] Social History Tobacco Use Types Packs/Day Years [...] will notify patient about the results via St[employer]ilhart. * JOSSELIN Velazquez - 03/12/2025 6:41 PM EDT I will notify patient about the results via St[employer]ilhart. documented in this encounter Plan of Treatment Upcoming Encounters Date Type Department Care Team (Late st Contact Info) Description 05/10/2025 9:00 AM EST Office Visit [facility] Hematology Oncology [address] [place] [phone] Tess Sams PA [address] [place] [address] 05/16/2025 8:50 AM EST Office Visit Gastroenterology - 299 [facility] [address] [phone] Charity Wall PA [address] [address] 06/23/2025 2:00 PM EST Office Visit Adult Medicine [address] [phone] Rebecca Encinas MD [address] [place] [address] 10/12/2025 8:15 AM EDT Office Visit Orthopedic Surgery - [place] [address] [phone] Wei Sheppard DPM [address] [phone] documented as of this encounter Visit Diagnoses Not on filedocumented in this encounter Additional Health Concerns Assessment Noted Time PHQ-9 Depression Total Score: 11 025 2:47 PM EST documented as of this encounter Care Teams Assistant Branch Manager Relationship Specialty Start Date End Date Rebecca Encinas MD [address] [place] [phone] PCP - General Internal Medicine 09/10/24 documented as of this encounter
== END 2025-05-05 09:53 | disposition home or self-care (01) ==
LOC: HO.LAB 09:52
PROVIDERS: PCP Internal Medicine; Visit Provider Internal Medicine Nephrology
DX: E10.21 Type 1 diabetes mellitus with diabetic nephropathy (principal); I10 Essential (primary) hypertension; R30.0 Dysuria
CPT/HCPCS: 36415; 80051; 82565; 84520; 87086

== ENCOUNTER 2025-05-13 14:28 | Outpatient (AMB) | payer OTHER, SELFPAY ==
--- OUTSIDE RECORDS SUMMARY | 2025-05-10 09:00 | XMS_ITS | Encounter Summary ---
Author Organization [facility] Address [address] [place] [address] Care Team Providers Care Director Of Casino Name Role Phone Rebecca Encinas MD Primary Care Provider [phone] Reason for Visit * Reason Comments Follow-up Encounter Details Date Type Department Care Team (Latest Contact Info) Description 05/10/2025 9:00 AM EST Office Visit [facility] Hematology Oncology [address] [place] [phone] Tess Sams PA [address] [place] [address] Thrombophilia (CMS/HCC V24) (Primary Dx) Social History Tobacco Use Types [...] Sign Reading Time Taken Comments Blood Pressure 177/100 05/10/2025 9:07 AM EST pt being seen for high BP Pulse 100 05/10/2025 9:07 AM EST Temperature 36.2 C (97.2 F) 05/10/2025 9:07 AM EST Respiratory Rate - - Oxygen Saturation 100% 05/10/2025 9:0 7 AM EST Inhaled Oxygen Concentration - - Weight 100 kg (221 lb) 05/10/2025 9:07 AM EST Height - - Body Mass Index 40.42 04/05/2025 9:32 AM EST documented in this encounter Progress Notes * JOSSELIN Morris - 05/10/2025 9:00 AM EST Images from the original note were not included. Hematology/Oncology Consult Note Date of Consult: 05/10/2025 Patient's Primary Care Physician: Rebecca Encinas MD Subjective History of Present Illness 29-year-old female PMH hypertension, hyperlipidemia, diastolic heart failure asthma, depression, PCOS, type I diabetes mellitus, generalized anxiety disorder, and obesity here for follow-up of elevated platelets. She has a history of smoking cigarettes, which she quit around a year ago but continues to vape around 5 times a day, though she is attempting to cut back. She was previously given a referral to sleep medicine to evaluate for potential TIGRE, unfortunately she has not been able to schedule that appointment yet. She describes a history of multiple blood clots, she is unsure on the specifics however she believes one was last year in her arm and one was in her leg a few years prior, shebelieves she had a few more prior to that. She also reports a history of a TIA, she is uncertain ofwhen this was. Unfortunately, she has multiple had multiple miscarriages as well. She previously described vasomotor symptoms such as night sweats, fevers, chills, which she continues to experience. She also is being followed by GI for difficulty with eating due to nausea/vomiting/abdominal pain, however she denies any weight loss. She also endorses SOB which has been worsening, she has a historyof asthma and uses an inhaler, she has a follow-up today with her PCP in regards to this. REVIEW OF SYSTEMS: Constitutional: See above HEENT: No changes in vision Respiratory: No cough, +shortness of breath Cardiac: No chest pain, palpitations GI: see above Neuro: + headaches, +occasional dizziness (none currently) no focal weakness Musculoskeletal: No bone pain, no joint pain. Hem/Lymph : No palpable lymph nodes, no bleeding + easy bruising Past Medical History Medical History[1] Past Surgical History Surgical History[2] Family History Family History[3] Personal and Social History Tobacco Use History[4] Social History Substance and Sexual Activity Alcohol Use Yes Comment: socially Social History Substance and Sexual Activity Drug Use Yes Types: Marijuana/Cannabis Objective Medications Current Medications[5] Allergies Allergies[6] Physical Exam Vitals: 05/10/25 0907 BP: (!) 177/100 BP Location: Left arm Patient Position: Sitting BP Cuff Size: Large adult Pulse: 100 Temp: 36.2 ??C (97.2 ??F) TempSrc: Temporal SpO2: 100% Weight: 100 kg (221 lb) Body mass index is 40.42 kg/m??. General: no acute distress Eyes: conjunctiva pink and sclera are normal without icterus Oral cavity: No erythema or exudates Neck Neck supple, no adenopathy Resp: CTA; normal inspiratory effort, no wheezes, rhonchi or rales Cardio: RRR, no murmurs rubs or gallops Abdomen: soft non tender, non distended, normoactive bowel sounds, MSK: FROM of UE and Les bilaterally; no edema Skin: warm, dry, no rashes Neuro: alert and oriented, normal speech, normal gait Labs Lab Results Component Value Date WBC 9.1 04/05/2025 RBC 4.20 04/05/2025 HGB 12.0 04/05/2025 HCT 36.8 04/05/2025 MCV 86.8 04/05/2025 MCHC 32.6 04/05/2025 RDW 12.4 04/05/2025 PLT 423 (H) 04/05/2025 MPV 9.2 04/05/2025 NRBC 0.0 04/05/2025 DIFF Lab Results Component Value Date LYMPHOPCT 27.9 04/05/2025 NEUTROABS 5.99 04/05/2025 LYMPHSABS 2.54 04/05/2025 MONOABS 0.40 04/05/2025 EOSABS 0.11 04/05/2025 BASOSABS 0.06 04/05/2025 IMMGRANABS 0.02 04/05/2025 Lab Results Component Value Date NA 138 03/08/2025 K 5.5 03/08/2025 CL 107 03/08/2025 CO2 23 03/08/2025 GLUCOSE 258 (H) 03/08/2025 BUN 22 03/08/2025 CREATININE 1.02 03/08/2025 CALCIUM 9.1 03/08/2025 PROT 6.4 02/01/2025 ALBUMIN 2.9 (L) 03/08/2025 BILITOT 0.4 02/01/2025 AST 15 02/01/2025 ALT 14 02/01/2025 PHOS 3.9 03/08/2025 ALKPHOS 95 02/01/2025 EGFR 77 03/08/2025 Assessment & Plan 29-year-old female PMH hypertension, hyperlipidemia, diastolic heart failure asthma, depression, PCOS, type I diabetes mellitus, generalized anxiety disorder, and obesity here for follow-up of elevated platelets. JAK2, ERNESTINA are and MPL are negative, iron studies and ferritin were normal, thrombocytosis most likely in the setting of smoking/suspected TIGRE given obesity. Given her history of reportedmultiple blood clots as well as 3 miscarriages, I have ordered a thrombophilia workup, if negative she can return to her PCP for monitoring, would consider aspirin should platelets go above 600, however they have been stable around 400-500. 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 Factor V Leiden, protein C and S as well as antiphospholipid panel ordered If negative can return to PCP for monitoring HTN She has been following closely with PCP, has appointment today to address this issue Follow-up will be determined based on results of labs Please note, this note may have been created in part by using [employer] dictation software, and therefore, it may contain typographical and/or grammatical errors inherent in a voice recognition software program CC: Rebecca Encinas MD Sign: Tess Sams PA-C Hematology/Oncology [facility] [phone] [1] Past Medical History: Diagnosis Date Depression with anxiety DX:Depression with anxiety Endometriosis Headache DX:Headache Mild intermittent asthma DX:Mild intermittent asthma Obesity DX:Obesity Tobacco use disorder DX:Tobacco use disorder Type 1 diabetes mellitus (CMS/HCC V24, CMS/HCC V28) DX:Type 1 diabetes mellitus (HCC); COMMENT: [facility] Endocrinology. Dr. Griffin. Dx age 8 [2] Past Surgical History: Procedure Laterality Date UPPER GASTROINTESTINAL ENDOSCOPY 2007 PROCEDURE: UPPER GI ENDOSCOPY/EXAM; COMMENT: [facility] [3] Family History Problem Relation Name Age of Onset Breast cancer Mother 37 Uterine cancer Neg Hx Ovarian cancer Neg Hx Colon cancer Neg Hx Prostate cancer Neg Hx [4] Social History Tobacco Use Smoking Status Every Day Current packs/day: 0.25 Types: Cigarettes Smokeless Tobacco Never [5] Current Outpatient Medications: acetaminophen (TYLENOL) 500 mg tablet, TAKE 1 BY MOUTH EVERY 6 HOURS NEEDED FOR PAIN, Disp: , Rfl: albuterol HFA (PROAIR HFA ; PROVENTIL HFA ; VENTOLIN HFA) 90 mcg/actuation inhaler, Inhale 2 puffs by mouth every 4 (four) hours if needed for wheezing., Disp: 6.7 g, Rfl: 1 atorvastatin (LIPITOR) 10 mg tablet, Take 1 tablet (10 mg total) by mouth 1 (one) time each day in the evening., Disp: , Rfl: busPIRone (BUSPAR) 7.5 mg tablet, Take 1 tablet (7.5 mg total) by mouth 2 (two) times a day., Disp:, Rfl: gwiivexwej-cvfhveyevztyv-pbkvqycy (FIORICET, ESGIC) 50-325-40 mg per tablet, Take 1 tablet by mouth3 (three) times a day if needed for migraine., Disp: , Rfl: CHOLECALCIFEROL, VITAMIN D3, ORAL, Take 1 Tab by mouth daily., Disp: , Rfl: clotrimazole (LOTRIMIN) 1 % cream, Apply topically 2 (two) times a day., Disp: 30 g, Rfl: 3 esomeprazole (NexIUM) [address] capsule, TAKE 1 CAPSULE BY MOUTH 1 TIME EACH DAY BEFORE BREAKFAST. DO NOT OPEN CAPSULE., Disp: 90 capsule, Rfl: 3 furosemide (LASIX) 20 mg tablet, Take 1 tablet (20 mg total) by mouth 1 (one) time each day., Disp:, Rfl: glucagon (Gvoke HypoPen 2-Pack) 0.5 mg/0.1 mL auto-injector, Inject 0.5 mg under the skin if needed(low blood sugar)., Disp: 0.2 each, Rfl: 3 hydrALAZINE (APRESOLINE) 25 mg tablet, take 1 tablet (25 mg) by mouth twice daily for 30 days, Disp: , Rfl: hydrOXYzine HCL (ATARAX) 25 mg tablet, Take 1 tablet (25 mg total) by mouth every 8 (eight) hours if needed for anxiety., Disp: 90 tablet, Rfl: 0 insulin aspart (NovoLOG FlexPen) 100 unit/mL (3 mL) injection pen, 1 TO 5 UNITS FOR CARBS .1 TO 20 UNITS FOR BLOOD SUGAR ABOVE 120 SLIDING SCALE Dispense aspart , generic only, Disp: 15 mL, Rfl: 11 insulin glargine (Lantus Solostar U-100 Insulin) 100 unit/mL (3 mL) injection pen, 50 units Sc at bedtime (Patient taking differently: 27 Units at bedtime. 25 units Sc at bedtime), Disp: 15 mL, Rfl: 11 isosorbide mononitrate (IMDUR) 60 mg 24 hr tablet, Take 1 tablet (60 mg total) by mouth 1 (one) time each day., Disp: , Rfl: lamoTRIgine (LaMICtal) 25 mg tablet, Take 1 tablet (25 mg total) by mouth 1 (one) time each day., Disp: , Rfl: loratadine (CLARITIN) 10 mg tablet, Take 10 mg by mouth daily., Disp: , Rfl: LORazepam (ATIVAN) 0.5 mg tablet, Take 1 tablet (0.5 mg total) by mouth every 8 (eight) hours if needed for anxiety., Disp: , Rfl: losartan (COZAAR) 100 mg tablet, Take 1 tablet (100 mg total) by mouth 1 (one) time each day., Disp: , Rfl: medical supply, miscellaneous (MISCELLANEOUS MEDICAL SUPPLY MISC), SYRINGE- NEEDLE, DISP, 3 ML 25G X5/8 3 ML MISC To inject medication into the skin every 3 months., Disp: , Rfl: metoclopramide (REGLAN) 5 mg tablet, Take 1 tablet (5 mg total) by mouth 3 (three) times a day before meals., Disp: 90 each, Rfl: 3 metoprolol succinate (TOPROL-XL) 25 mg 24 hr tablet, Take 1 tablet (25 mg total) by mouth 1 (one) time each day. Do not crush or chew., Disp: 90 each, Rfl: 0 ondansetron ODT (ZOFRAN-ODT) 8 mg disintegrating tablet, Dissolve 1 tablet (8 mg total) on top of the tongue every 8 (eight) hours if needed for nausea or vomiting., Disp: 30 tablet, Rfl: 1 SUMAtriptan (IMITREX) 100 mg tablet, TAKE 1 TABLET BY MOUTH 1 TIME IF NEEDED FOR MIGRAINE. MAY REPEAT DOSE ONCE IN 2 HOURS IF NO RELIEF. DO NOT EXCEED 2 DOSES IN 24 HOURS., Disp: 9 tablet, Rfl: 1 amLODIPine (NORVASC) 10 mg tablet, TAKE 1 TABLET BY MOUTH 1 TIME EACH DAY., Disp: 90 tablet, Rfl: 1 [6] Allergies Allergen Reactions Clindamycin Other Reaction(s): Rash/Dermatitis Other SEASONAL Shellfish Derived Sulfa (Sulfonamide Antibiotics) Hives documented in this encounter Plan of Treatment Upcoming Encounters Date Type Department Care Team (Late Contact Info) Description 05/16/2025 8:50 AM EST Office Visit Gastroenterology - [address] [place] [phone] Charity Wall PA [address] [place] [phone] 06/23/2025 2:00 PM EST Office Visit Adult Medicine [address] [phone] Rebecca Encinas MD [address] [place] [address] 10/12/2025 8:15 AM EDT Office Visit Orthopedic Surgery - [place] [address] [phone] Wei Sheppard DPM [address] [phone] Scheduled Orders Name Type Priority Associated Diagnoses Orde r Schedule Antiphospholipid syndrome, standard panel Lab Routine Thrombophilia ([facility] V24) 1 Occurrences starting 05/10/2025 until 05/10/2026 Factor V leiden Lab Routine Thrombophilia ([facility] V24) 1 Occurrences starting 05/10/2025 until 05/10/2026 Protein c and protein s, functional Lab Routine Thrombophilia ([facility] V24) 1 Occurrences starting 05/10/2025 until 05/10/2026 documented as of this encounter Visit Diagnoses Diagnosis Thrombophilia ([facility] V24)- Primary Other and unspecified coagulation defects documented in this encounter Historical Medications * This list may reflect changes made after this encounter. hydrALAZINE (APRESOLINE) 25 mg tablet take 1 tablet (25 mg) by mouth twice daily for 30 days 05/04/2025 isosorbide mononitrate (IMDUR) 60 mg 24 hr tablet Take 1 tablet (60 mg total) by mouth 1 (one) time each day. 05/04/2025 added in this encounter Additional Health Concerns Assessment Noted Time PHQ-9 Depression Total Score: 11 025 2:47 PM EST documented as of this encounter Care Teams Director Of Casino Relationship Specialty Start Date End Date Rebecca Encinas MD [address] [place] [phone] PCP - General Internal Medicine 09/10/24 documented as of this encounter
[2025-05-13 14:40] VITALS: BP 156/100; PULSE 93; O2SAT 97; BMI 39.3
--- NOTE | 2025-05-13 14:40 | HO.NEPHOV ---
Vital Signs 05/13/25 14:40 Height 5 ft 2 in Weight 215 lb BMI 39.3 BP 156/100 H Blood Pressure Location Lt brachial Position Sitting Pulse 93 Pulse Source Pulse Oximeter Pulse Oximetry (%) 97 Oxygen Delivery Method Room Air Intake Visit Reasons: 1 wk f/u w/ lab-Conf Graduate Engineer Required: No Accompanied by: Sister Allergies Sulfa (Sulfonamide Antibiotics) (SULFA (SULFONAMIDE ANTIBIOTICS)) Allergy (Unknown, Verified 05/13/25 14:44) HIVES clindamycin Allergy (Verified 05/13/25 14:44) Hives fish derived (fish) Allergy (Verified 05/13/25 14:44) Anaphylaxis HPI Comments Details: 29-year-old female with type 1 diabetes, hypertension and prior alcohol/cocaine use was seen in F/U for diabetic nephropathy. She has H/O cocaine, alcohol and marijuana use. She feels improved but is concerned about her proteinuria, weight gain and edema. Her BP is better well controlled now. She did not have any other new complaints. PFSH Medical History Chest pain Type 1 diabetes Hypertension 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 Cocaine use Surgical History No pertinent past surgical history Family History Father Hypertension Mother Hypertension Diabetes Social History Household Members: Family Housing: House Do you presently have visiting nurse or other home services: No Alcohol intake: current Alcohol intake frequency: holidays/special occasions only Patient Tobacco Use Status: Never used Tobacco Substance Use Type: Marijuana service: No Review of Systems Const All systems reviewed & are unremarkable except as noted in HPI and below Physical Exam Vital Signs: Last Vital Signs Pulse 93 05/13/25 14:40 BP 156/100 H 05/13/25 14:40 Pulse Ox 97 05/13/25 14:40 Oxygen Delivery Method Room Air 05/13/25 14:40 BMI result Body Mass Index 39.3 Const General: comfortable and no acute distress Orientation/consciousness: patient oriented x3 HEENT Head: Yes normocephalic Mouth: Normal oral and palatal mucosa present Eyes EOM: EOMs intact bilaterally Neck Neck: Yes supple Resp Auscultation: clear to auscultation bilaterally Cardio Jugular venous distension: no JVD Rate: regular rate Heart sounds: Murmur heart sound present GI Palpation (GI): Soft to palpation Auscultation: normal bowel sounds General: Yes no CVA tenderness Back/Spine/Pelvis Back: no CVA tenderness Skin General skin exam: no rashes or lesions noted Neuro General: patient oriented x3 and moves all extremities Extrem General: Yes no pedal edema Results Reviewed Nephrology Results: Sodium, (135-145) 140 mmol/L 05/05/25 Potassium, (3.3-5.1) 4.7 mmol/L 05/05/25 Chloride, (96-108) 107 mmol/L 05/05/25 Carbon Dioxide, (22-29) 26 mmol/L 05/05/25 BUN, (9-16) 18 mg/dL H 05/05/25 Creatinine, (0.5-1.4) 1.07 mg/dL 05/05/25 Calcium, (8.4-10.2) 8.4 mg/dL Δ 05/02/25 Assessment & Plan Assessment & Plan (1) Hypertension: Code(s): I10 - Essential (primary) hypertension Category: Medical Qualifiers: Hypertension type: primary hypertension Qualified Code(s): I10 - Essential (primary) hypertension (2) Diabetic nephropathy: Code(s): E11.21 - Type 2 diabetes mellitus with diabetic nephropathy Category: Medical Qualifiers: Diabetes mellitus type: type 1 Qualified Code(s): E10.21 - Type 1 diabetes mellitus with diabetic nephropathy Plan Type 1 DM with diabetic nephropathy Has Diastolic dysfunction by ECHO Has significant proteinuria & retinopathy Renal function normal; Needs to abstain from cocaine( already has) Increased lasix to 80 mg bid Increased hydralazine to 50 mg bid & Isosorbide to 90 mg daily If more medications are needed for BP control, will add Diltiazem) ( Diltiazem also has anti proteinuric effect) Shall follow up in office in 2 weeks; Answered all questions Orders: Orders Blood Urea Nitrogen 2 Weeks E10.21 - Type 1 diabetes mellitus with diabetic nephropathy, I10 - Essential (primary) hypertension Electrolytes 2 Weeks E10.21 - Type 1 diabetes mellitus with diabetic nephropathy, I10 - Essential (primary) hypertension Creatinine 2 Weeks E10.21 - Type 1 diabetes mellitus with diabetic nephropathy, I10 - Essential (primary) hypertension Medications: Changed From hydralazine 25 mg PO BID 30 days 60 tabs 3RF To hydralazine 50 mg PO BID 60 tabs 3RF 30 days From furosemide 40 mg PO BID 30 days 60 tabs 5RF edema To furosemide 80 mg (2 x 40 mg) PO BID 120 tabs 5RF edema 30 days From isosorbide mononitrate ER 60 mg PO DAILY 30 tabs 3RF To isosorbide mononitrate ER 90 mg (1.5 x 60 mg) PO DAILY 135 tabs 3RF 90 days Coding Level of Care Code Est Pt Level 4 (36727) Diagnoses Primary hypertension I10 Hypertension type: primary hypertension 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
--- OUTSIDE RECORDS SUMMARY | 2025-05-13 19:41 | XMS_ITS | Encounter Summary ---
Author Organization [facility] Address [address] [place] [address] Care Team Providers Care Ldr Nurse Name Role Phone Rebecca Encinas MD Primary Care Provider [phone] Encounter Details Date Type Department Care Team ([facility] Contact Info) Description 03/12/2025 Results Follow-Up Gastroenterology - [place] 175 [facility] 175 [facility] [address] [place] [phone] Charity Wall PA 299 [facility] [address] [place] [address] Social History Tobacco Use Types Packs/Day Years [...] will notify patient about the results via [email or web address]. * JOSSELIN Velazquez - 03/12/2025 6:41 PM EDT I will notify patient about the results via [email or web address]. documented in this encounter Plan of Treatment Upcoming Encounters Date Type Department Care Team (Late st Contact Info) Description 05/16/2025 8:50 AM EST Office Visit Gastroenterology - 299 [facility] [address] [phone] Charity Wall PA [address] [address] 06/23/2025 2:00 PM EST Office Visit Adult Medicine [address] [phone] Rebecca Encinas MD [address] [place] [address] 10/12/2025 8:15 AM EDT Office Visit Orthopedic Surgery - [place] [address] [phone] Wei Shepprad, DPM [address] [phone] documented as of this encounter Visit Diagnoses Not on filedocumented in this encounter Additional Health Concerns Assessment Noted Time PHQ-9 Depression Total Score: 11 025 2:47 PM EST documented as of this encounter Care Teams Ldr Nurse Relationship Specialty Start Date End Date Rebecca Encinas MD [address] [place] [address] PCP - General Internal Medicine 09/10/24 documented as of this encounter
--- OUTSIDE RECORDS SUMMARY | 2025-05-13 19:42 | XMS_ITS | Clinical Summary ---
Author Organization [facility] Address [address] [place] [address] Phone Care Team Providers Care Senior Cost Analyst Name Role Phone Rebecca Encinas MD Primary Care Provider [phone] Allergies Active Allergy Reactions Criticality Noted Date [...] 25 units Sc at bedtime, Reported on 05/10/2025 glucagon (Gvoke HypoPen 2-Pack) 0.5 mg/0.1 mL [...] NOT OPEN CAPSULE. 90 capsule 3 Active ondansetron ODT (ZOFRAN-ODT) 8 mg disintegrating [...] IN 24 HOURS. 9 tablet 1 Active isosorbide mononitrate (IMDUR) 60 mg 24 hr tablet Take 1 tablet (60 mg total) by mouth 1 (one) time each day. Active hydrALAZINE (APRESOLINE) 25 mg tablet take 1 tablet (25 mg) by mouth twice daily for 30 days Active Ventolin HFA 90 mcg/actuation inhalerIndication s:Mild intermittent asthma without complication INHALE 2 PUFFS BY MOUTH EVERY 4 (FOUR) HOURS IF NEEDED FOR WHEEZING. 18 each 1 Active amLODIPine (NORVASC) 10 mg tablet [...] HOURS. 9 tablet 1 025 2024 Discontinued albuterol HFA (PROAIR HFA ; PROVENTIL HFA ; VENTOLIN HFA) 90 mcg/actuation inhalerIndication s:Mild intermittent asthma without complication Inhale 2 puffs by mouth every 4 (four) hours if needed for wheezing. 6.7 g 1 025 2024 Discontinued Active Problems Problem Noted Date Diagnosed Date Cocaine use disorder in remission 10/20/2024 Mild intermittent asthma without complication Chronic diastolic heart failure 10/20/2024 Menorrhagia with irregular cycle 07/12/2024 Assessment [...] year. She agreed. 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 06/25/2024 Depression, major, recurrent, moderate Obesity 05/11/2024 Tobacco use disorder 05/11/2024 Migraine [...] Encounters Date Type Department Care Team Description 05/10/2025 9:00 AM EST Office Visit [facility] Hematology Oncology [address] [place] [address] Tess Sams PA Thrombophilia (CMS/HCC V24) (Primary Dx) 04/14/2025 2:30 PM EST Office Visit Orthopedic Surgery - [place] [address] [facility] [address] [place] [phone] Wei Sheppard, DPM Dermatophytosis of nail (Primary Dx); Type 1 diabetes mellitus with mononeuropathy ([facility] V24, [facility] V28) 04/05/2025 10:00 AM EST Lab Draw Station - [facility] [address] [phone] Elevated platelet count; Thrombocytosis; Leukocytosis, unspecified type; Iron deficiency anemia, unspecified iron deficiency anemia type 04/05/2025 9:30 AM EST Office Visit [facility] Hematology Oncology [address] [place] [phone] Tess Sams PA Elevated platelet count (Primary Dx) 03/22/2025 1:00 PM EDT Office Visit [facility] Hematology Oncology [address] [place] [address] Tess Sams PA Elevated platelet count (Primary Dx) 03/17/2025 8:22 AM EDT - 03/17/2025 11:59 PM EDT Hospital Encounter [facility] Nuclear Medicine [address] [place] [phone] Nausea and vomiting, unspecified vomiting type; Gastroesophageal reflux disease, unspecified whether esophagitis present; LLQ abdominal pain Discharge Disposition: Home or Self Care 03/12/2025 Results Follow-Up Gastroenterology - [place] [address] [facility] [address] [place] [phone] Charity Wall PA 03/10/2025 2:13 PM EDT - 03/10/2025 11:59 PM EDT Hospital Encounter [facility] CT Scan [address] [place] [address] Nausea and vomiting, unspecified vomiting type; Gastroesophageal reflux disease, unspecified whether esophagitis present; LLQ abdominal pain Discharge Disposition: Home or Self Care 03/10/2025 9:00 AM EDT Office Visit Adult Medicine [address] [phone] Rebecca Encinas MD Hospital discharge follow-up (Primary Dx); 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, macular edema presence unspecified, unspecified retinopathy severity ([facility] V24, [facility] V28); Primary hypertension; Chronic diastolic heart failure ([facility] V24, [facility] V28); Generalized anxiety disorder 03/08/2025 8:50 AM EDT Office Visit Gastroenterology [address] [phone] Charity Wall PA Nausea and vomiting, unspecified vomiting type (Primary Dx); Gastroesophageal reflux disease, unspecified whether esophagitis present; LLQ abdominal pain; High platelet count 03/07/2025 Results Follow-Up [address] [phone] Charity Wall PA 03/07/[address] [phone] Charity Wall PA 02/28/2025 Telephone Adult [address] [phone] Rebecca Encinas MD 02/23/2025 9:46 AM EDT - 02/23/2025 11:59 PM EDT Hospital Encounter [facility] [address] [place] [address] Gastroesophageal reflux disease, unspecified whether esophagitis present; Nausea and vomiting, unspecified vomiting type Discharge Disposition: Home or Self Care 02/17/2025 Telephone Adult [address] [phone] Rebecca Encinas MD from Last 3 Months Immunizations Immunization Administration Dates Next Due DTaP (Infanrix) 6wks to less than 7yo ,09/03/1999,05/04/1998,1997,1997 [id number] (Pentacel) 2mo to less than 5yo 09/03/1999,05/04/1998,03/01/1998,1997 [...] ENDOSCOPY 2007 PROCEDURE: UPPER GI ENDOSCOPY/EXAM; COMMENT: [facility] Medical History Medical History Date Comments Type 1 diabetes mellitus (CM S/HCC V24, CMS/HCC V28) DX:Type 1 diabetes mellitus (HCC); COMMENT: [facility] Endocrinology. Dr. Griffin. Dx age [...] F) 05/10/2025 9:07 AM EST Respiratory Rate 14 03/10/2025 9:24 AM EDT Oxygen Saturation 100% 05/10/2025 9:0 7 AM EST Inhaled Oxygen Concentration - - Weight 100 kg (221 lb) 05/10/2025 9:07 AM EST Height 157.5 cm (5' 2 ) 04/05/2025 9:32 AM EST Body Mass Index 40.42 04/05/2025 9:32 AM EST Plan of Treatment Upcoming Encounters Date Type Department Care Team (Late st Contact Info) Description 05/16/2025 8:50 AM EST Office Visit Gastroenterology - [address] [place] [address] [phone] Charity Wall PA [address] [address] 06/23/2025 2:00 PM EST Office Visit Adult Medicine [address] [phone] Rebecca Encinas MD [address] [place] [address] 10/12/2025 8:15 AM EDT Office Visit Orthopedic Surgery - [place] [address] [phone] Wei Sheppard, DPM [address] [phone] Health Maintenance Due Date Last Done Comments Non-Opioid Controlled Substance Agreement 1997 Pneumococcal Vaccine: Pediatrics (0 to 5 Years) [...] Annual Urine Albumin-Creatinine Ratio (uACR) 03/10/2026 03/10/2025 Drug Screen 03/10/2026 03/10/2025 Cholesterol Screening (Lipid Panel) 02/01/2030 [...] Date/Time Associated Diagnosis Comments EXTERNAL CLINICAL LAB 05/02/2025 CBC WITH AUTO DIFFERENTIAL Routine 04/05/2025 9:59 [...] EDT Type 1 diabetes mellitus without complication ([facility]/HCC V24, [facility] V28) LIPID PANEL WITH REFLEX TO DIRECT LDL Routine 02/01/2025 12:49 PM EDT Type 1 diabetes mellitus without complication ([facility] V24, [facility] V28) CHLAMYDIA TRACHOMATIS AND NEISSERIA GONORRHOEAE PCR Routine 07/27/2024 3:19 PM EST Screen for STD (sexually transmitted disease) HEPATITIS C SCREENING Routine 11/23/2020 HIV SCREENING Routine 11/23/2020 PAP SMEAR Routine 04/12/2020 from Last 3 Months or Most Recently Relevant to Health Maintenance Results * External clinical lab (05/02/2025) Only the most recent of2 resultswithin the time period is included. Provider [place] LAB BLOOD ORDERABLES Fin al Result * MPL mutation analysis (04/05/2025 9:59 AM [...] 1:39 AM EST [facility] Mutation Frequency TN 2024 1:39 AM EST [facility] Mutation Type TN 04/13/2025 1:39 AM EST [facility] Exon TN 04/13/2025 1:39 AM EST [facility] Nucleotide Change [facility] 025 1:39 AM EST [facility] Reference TN 04/13/2025 1:39 AM EST [facility] Interpretation [...] hematologic features, includes BCR-ABL1 rearrangement (test code 96114 or 61790L) or mutational analysis of JAK2 V617F (polycythemia vera (PV)/ET/PMF, 70611), CALR (ET/PMF, 45645), JAK2 exon 12 (PV, 62736) or CSF3R (chronic neutrophilic leukemia, 54679). Residual material from this sample may be used except for BCR-ABL1 testing; call lab to add. DNA was aligned to GRCh37(hg19) for analysis and transcript ID [id number] was used as reference for MPL sequence. For additional information, please refer to http://education.[employer]/faq/KPH758 (This link is being provided for informational/educational purposes only.) This test was developed and its analytical performance characteristics have been determined by [facility]. It has not been cleared or approved by FDA. This assay has been validated pursuant to the CLIA regulations and is used for clinical purposes. Test Performed at: [facility] [address] [address] Rick Cade MD, PhD, SP Blood Venous blood specimen / Unknown Venipuncture / Unknown 04/05/2025 9:59 AM EST 04/05/2025 11:30 AM EST Tess SCHWAB LAB MOLECULAR DIAGNOSTICS ORD ERABLES Final Result [facility] [address] [place] [address] * Calreticulin mutation analysis (04/05/2025 [...] hematologic features, includes BCR-ABL1 rearrangement (test code 90937 or 81101G) or mutational analysis of JAK2 V617F (polycythemia vera (PV)/ET/PMF, 06949), JAK2 exon 12 (PV, 87720), MPL (ET/PMF, 61823) or CSF3R (chronic neutrophilic leukemia, 37989). Residual material from this sample may be used except for BCR-ABL1 testing; call lab to add. DNA was aligned to GRCh37(hg19) for analysis and transcript ID [id number] was used as reference for CALR sequence. For additional information, please refer to http://education.[employer]/faq/YSV484 (This link is being provided for informational/educational purposes only.) This test was developed and its analytical performance characteristics have been determined by [facility]. It has not been cleared or approved by FDA. This assay has been validated pursuant to the CLIA regulations and is used for clinical purposes. Test Performed at: [facility] [address] [place] [address] Rick Cade MD, PhD, SP Blood Venous blood specimen / Unknown Venipuncture / Unknown 04/05/2025 9:59 AM EST 04/05/2025 11:30 AM EST Tess SCHWAB LAB MOLECULAR DIAGNOSTICS ORD ERABLES Final Result [place] [address] * (ABNORMAL) CBC auto differential (04/05/2025 9:59 AM EST) Only the most recent of2 resultswithin the time period is included. WBC 9.1 4.8 - 10.8 K/mcL LAB HEMETOLOGY METHOD 04/05/2025 1:06 PM [facility] RBC 4.20 3.80 - 4.80 M/mcL LAB HEMETOLOGY METHOD 04/05/2025 1:06 PM [facility] Hemoglobin 12.0 11.5 - 16.0 g/dL LAB HEMETOLOGY METHOD 04/05/2025 1:06 PM [facility] Hematocrit 36.8 35.0 - 47.0 % LAB HEMETOLOGY METHOD 04/05/2025 1:06 PM [facility] MCV 86.8 79.0 - 98.0 FL LAB HEMETOLOGY METHOD 04/05/2025 1:06 PM [facility] MCH 28.3 27.0 - 32.0 pcg LAB HEMETOLOGY METHOD 04/05/2025 1:06 PM [facility] MCHC 32.6 32.0 - 37.0 g/dL LAB HEMETOLOGY METHOD 04/05/2025 1:06 PM [facility] RDW 12.4 11.0 - 15.0 % LAB HEMETOLOGY METHOD 04/05/2025 1:06 PM [facility] Platelets 423(H) 130 - 400 K/mcL LAB HEMETOLOGY METHOD 04/05/2025 1:06 PM [facility] MPV 9.2 7.0 - 11.0 FL LAB HEMETOLOGY METHOD 04/05/2025 1:06 PM [facility] NRBC 0.0 <1.0 % LAB HEMETOLOGY METHOD 04/05/2025 1:06 PM [facility] NRBC Absolute 0.00 <0.10 K/mcL LAB HEMETOLOGY METHOD 04/05/2025 1:06 PM [facility] Neutrophils Relative 65.6 % LAB HEMETOLOGY METHOD 04/05/2025 1:06 PM [facility] Lymphocytes Relative 27.9 % LAB HEMETOLOGY METHOD 04/05/2025 1:06 PM [facility] Monocytes Relative 4.4 % LAB HEMETOLOGY METHOD 04/05/2025 1:06 PM [facility] Eosinophils Relative 1.2 % LAB HEMETOLOGY METHOD 04/05/2025 1:06 PM [facility] Basophils Relative 0.7 % LAB HEMETOLOGY METHOD 04/05/2025 1:06 PM [facility] Immature Granulocytes Relative 0.2 % LAB HEMETOLOGY METHOD 04/05/2025 1:06 PM [facility] Neutrophils Absolute 5.99 1.50 - 7.00 K/mcL LAB HEMETOLOGY METHOD 04/05/2025 1:06 PM [facility] Lymphocytes Absolute 2.54 1.00 - 5.00 K/mcL LAB HEMETOLOGY METHOD 04/05/2025 1:06 PM [facility] Monocytes Absolute 0.40 0.20 - 1.00 K/mcL LAB HEMETOLOGY METHOD 04/05/2025 1:06 PM [facility] Eosinophils Absolute 0.11 0.00 - 0.50 K/mcL LAB HEMETOLOGY METHOD 04/05/2025 1:06 PM EST [facility] Basophils Absolute 0.06 0.00 - 0.20 K/[facility] LAB HEMETOLOGY METHOD 04/05/2025 1:06 PM EST [facility] Immature Granulocytes Absolute 0.02 0.00 - 0.03 K/[facility] LAB HEMETOLOGY METHOD 04/05/2025 1:06 PM EST [facility] Blood Venous blood specimen / Unknown Venipuncture / Unknown 04/05/2025 9:59 AM EST 04/05/2025 11:31 AM EST Tess SCHWAB LAB BLOOD ORDERABLES Final Re sult [facility] [address] [place] [address], * Erythropoietin (04/05/2025 9:59 AM EST) Erythropoietin 14.2 2.6 - 18.5 mIU/mL 04/07/2025 7:43 PM EST [facility] Comment: Test performed at [facility], [address], [place] [address] Lacie Cancino MD, PhD - Geomagnetist Blood Venous blood specimen / Unknown Venipuncture / Unknown 04/05/2025 9:59 AM EST 04/05/2025 11:31 AM EST Tess SCHWAB LAB BLOOD ORDERABLES Final Re sult [facility] [address] [place] [address] * Lactate dehydrogenase (04/05/2025 9:59 AM EST) LDH 190 120 - 246 unit/L LAB CHEMISTRY METHOD 04/05/2025 12:53 PM EST [facility] Blood Venous blood specimen / Unknown Venipuncture / Unknown 04/05/2025 9:59 AM EST 04/05/2025 11:31 AM EST Tess SCHWAB LAB BLOOD ORDERABLES Final Re sult [facility] [address] [place] [address], [place] [phone] * JAK2 gene, V617F mutation, quantitative, molecular study (03/22/2025 2:18 PM EDT) [facility] JAK2 (V617F) Mutation Not detected Not detected 03/25/2025 11:44 AM EDT [facility] WBC Percent with V617F Mutation <0.1 <0.1 % 03/25/2025 11:44 AM EDT [facility] Comment: This procedure uses real-time polymerase [...] characteristics of this procedure were determined by [facility]. This test is performed pursuant to a license agreement with [employer] Test performed at [facility], [address], [place] [address] Lacie Cancino MD, PhD - Geomagnetist Blood Venous blood specimen / Unknown Venipuncture / Unknown 03/22/2025 2:18 PM EDT 03/22/2025 4:39 PM EDT Tess SCHWAB LAB MOLECULAR DIAGNOSTICS ORD ERABLES Final Result [facility] [address] [place] [address] * Iron and TIBC (03/22/2025 2:18 PM EDT) Iron 72 40 - 150 mcg/dL LAB CHEMISTRY METHOD 03/22/2025 5:14 PM EDT [facility] TIBC 257 250 - 450 mcg/dL LAB CHEMISTRY METHOD 03/22/2025 5:14 PM EDT [facility] Iron Saturation 28 15 - 50 % LAB CHEMISTRY METHOD 03/22/2025 5:14 PM EDT [facility] Blood Venous blood specimen / Unknown Venipuncture / Unknown 03/22/2025 2:18 PM EDT 03/22/2025 5:13 PM EDT us Tess SCHWAB LAB BLOOD ORDERABLES Final Re sult Performing Organization Address [facility] Co de Phone Number [facility] [address] [place] [address], [place] [phone] * Ferritin (03/22/2025 2:18 PM EDT) Ferritin 46 8 - 252 ng/mL LAB CHEMISTRY METHOD 03/22/2025 5:13 PM EDT [facility] Blood Venous blood specimen / Unknown Venipuncture / Unknown 03/22/2025 2:18 PM EDT 03/22/2025 5:13 PM EDT us Tess SCHWAB LAB BLOOD ORDERABLES Final Re sult Performing Organization Address [facility]/ZIP Co de Phone Number [facility] [address] [place] [address], [place] [phone] * NM Gastric Emptying Study (03/17/2025 2:16 PM EDT) Anatomical Region Laterality Modality Body Nuclear Medicine 03/17/2025 3:15 PM EDT Impressions 03/17/2025 3:16 PM EDT Normal gastric emptying. -------- FINAL REPORT -------- Dictated By: Nena Cormier Dictated Date: 03/17/2025 15:15 ET Assigned Physician: Nena Cormier Reviewed and Electronically Signed By: Nena Cormier Signed Date: 03/17/2025 15:16 ET Workstation ID: [id number] Transcribed By: Self Edit Transcribed Date: 03/17/2025 [...] Signed Date: 03/17/2025 15:16 ET Workstation ID: [id number] Transcribed By: Self Edit Transcribed Date: 03/17/2025 [...] CT abdomen and pelvis with contrast Comparison: MR/KO/AL/SR - MR ABD WO AND W CONTRAST - 02/23/25 10:[address]/KO/AL - CT ABDOMEN OUTSIDE EXAMINATION - 08/09/24 [...] CT abdomen and pelvis with contrast Comparison: MR/KO/AL/SR - MR ABD WO AND W CONTRAST - 02/23/25 10:[address]/KO/AL - CT ABDOMEN OUTSIDE EXAMINATION - 08/09/24 [...] LAB CHEMISTRY METHOD 5 1:54 PM EDT [facility] Comment:Certain OTC medicati ons containing ephedrine, phenylephrine, pseudoephedrine and phenylpropanolamine can cause false positive results. Barbiturate Screen, Ur Positive(A ) Negative [facility] Benzodiazepine Screen, Ur Negative Negative LAB CHEMISTRY METHOD 5 1:54 PM [facility] Cocaine Screen, Ur Negative Negative LAB CHEMISTRY METHOD 5 1:54 PM [facility] Opiate Screen, Ur Negative Negative LAB CHEMISTRY METHOD 5 1:54 PM T [facility] Cannabinoid (THC) Screen, Ur Positive(A ) Negative LAB CHEMISTRY METHOD 5 1:54 PM [facility] Comment:Specimens from patie nts taking pantoprazole sodium (Protonix) have been shown to produce false positive results. Fentanyl, Ur Negative Negative LAB CHEMISTRY METHOD 5 1:54 PM EDT [facility] Oxycodone Screen, Ur Negative Negative LAB CHEMISTRY METHOD 5 1:54 PM [facility] Urine Urine specimen obtained by clean catch procedure / Unknown Non-blood Collection / Unknown 03/10/2025 10:23 AM EDT 03/10/2025 10:23 AM EDT Narrative [facility] - 03/10/2025 1:54 PM EDT Assay [...] ORDERABLES Final Resul t Performing Organization Address City/[facility] Co de Phone Number [facility] [address] [place] [address], * (ABNORMAL) Microalbumin creatinine urine ratio (03/10/2025 10:23 AM EDT) Creatinine, Urine 44.0 mg/dL LAB CHEMISTRY METHOD 03/10/2025 1:57 PM EDT [facility] Microalb, Ur 2,260.0(H ) 0.0 - 29.0 mg/L LAB CHEMISTRY METHOD 03/10/2025 1:57 PM EDT [facility] Microalb/Crea t Ratio 5,136(H) <30 mg/g creat LAB CHEMISTRY METHOD 03/10/2025 1:57 PM EDT [facility] Urine Urine specimen obtained by clean catch procedure / Unknown Non-blood Collection / Unknown 03/10/2025 10:23 AM EDT 03/10/2025 10:23 AM EDT us Rebecca Encinas MD LAB URINE ORDERABLES Final Resul t Performing Organization Address [facility]/ZIP Co de Phone Number [facility] [address] [place] [address], [place] [phone] * (ABNORMAL) THC, urine, confirmation (03/10/2025 10:23 AM EDT) Tetrahydrocannabinoid (THC) 742(H) Negative ng/mL 03/14/2025 11:04 PM EDT [facility] Tetrahydrocannabinoid (THC)/Creatinine Ratio 1726 5 11:04 PM EDT [facility] Creatinine 43 20 - 250 mg/dL 03/14/2025 11:04 PM EDT [facility] Adulterants Negative 03/14/2025 11:04 PM EDT [facility] Comment: The urine THC/creatinine ratio is the best monitor to determine the possibility of continued drug usage. With abstinence, the ratio should decrease within one week by a factor of two or more. Confirmation (GC/MS) Decision Limit THC (18-ubh-8-vonohne-6-[id number]) 3 ng/mL Adulterant Decision Limit: General Oxidants 200 ug/mL The adulterant assay tests for General Oxidants, including Chromates and Nitrites. Adulterants are substances either ingested or added directly to a urine specimen to prevent the detection of drug use. If applicable, any drug confirmation testing reported here was developed and the performance characteristics determined by [facility]. This confirmation testing has not been cleared or approved by the FDA. The laboratory is regulated under CLIA as qualified to perform high-complexity testing. This test is used for patient testing purposes. It should not be regarded as investigational or for research. Test performed at [facility], [address], [place] [address] Lacie Cancino MD, PhD - Geomagnetist Urine Urine specimen obtained by clean catch procedure / Unknown Non-blood Collection / Unknown 03/10/2025 10:23 AM EDT 03/10/2025 1:54 PM EDT us Rebecca Encinas MD LAB URINE ORDERABLES Final Resul t [facility] [address] [place] [address] * (ABNORMAL) Barbiturate, quantitative, urine (03/10/2025 10:23 AM EDT) [facility] Signature Amobarbital Confirm, Urine Negative Negative ng/mL 03/14/2025 [...] developed and the performance characteristics determined by [facility]. This confirmation testing has not been cleared or approved by the FDA. The laboratory is regulated under CLIA as qualified to perform high-complexity testing. This test is used for patient testing purposes. It should not be regarded as investigational or for research. Test performed at [facility], [address], [place], [place] [id number] Lacie Cancino MD, PhD - Geomagnetist Urine Urine specimen obtained by clean catch procedure / Unknown Non-blood Collection / Unknown 03/10/2025 10:23 AM EDT 03/10/2025 1:54 PM EDT us Rebecca Encinas MD LAB URINE ORDERABLES Final Resul [place] [address] [place] [address] * (ABNORMAL) Renal function panel (03/08/2025 10:22 AM EDT) Sodium 138 133 - 145 mmol/L LAB CHEMISTRY METHOD 03/08/2025 2:46 PM [facility] Potassium 5.5 3.5 - 5.5 mmol/L LAB CHEMISTRY METHOD 03/08/2025 2:46 PM [facility] Chloride 107 96 - 110 mmol/L LAB CHEMISTRY METHOD 03/08/2025 2:46 PM [facility] CO2 23 21 - 32 mmol/L LAB CHEMISTRY METHOD 03/08/2025 2:46 PM [facility] Anion Gap 8 3 - 11 LAB CHEMISTRY METHOD 03/08/2025 2:46 PM [facility] Glucose 258(H) 70 - 100 mg/dL LAB CHEMISTRY METHOD 03/08/2025 2:46 PM [facility] BUN 22 5 - 25 mg/dL LAB CHEMISTRY METHOD 03/08/2025 2:46 PM [facility] Creatinine 1.02 0.50 - 1.10 mg/dL LAB CHEMISTRY METHOD 03/08/2025 2:46 PM [facility] eGFR 77 >=60 mL/min/1. 73m2 LAB CHEMISTRY METHOD 03/08/2025 2:46 PM [facility] Comment:Calculation based on the Chronic Kidney Disease Epidemiology Collaboration (CKD-EPI) equation refit without adjustment for race. BUN/Creatinine Ratio 21.6 LAB CHEMISTRY METHOD 03/08/2025 2:46 PM [facility] Albumin 2.9(L) 3.2 - 5.0 g/dL LAB CHEMISTRY METHOD 03/08/2025 2:46 PM EDT [facility] Calcium 9.1 8.5 - 10.5 mg/dL LAB CHEMISTRY METHOD 03/08/2025 2:46 PM EDT [facility] Phosphorus 3.9 2.5 - 4.5 mg/dL LAB CHEMISTRY METHOD 03/08/2025 2:46 PM EDT [facility] Blood Venous blood specimen / Unknown Venipuncture / Unknown 03/08/2025 10:22 AM EDT 03/08/2025 10:23 AM EDT [facility] [facility] LAB BLOOD ORDERABLES Final Re sult [facility] [address] [place] [address], [place] [phone] * MR Abdomen wo and w Contrast [...] Signed Date: 03/05/2025 10:17 ET Workstation ID: [id number] Transcribed By: Self Edit Transcribed Date: 03/05/2025 [...] Signed Date: 03/05/2025 10:17 ET Workstation ID: [id number] Transcribed By: Self Edit Transcribed Date: 03/05/2025 09:27 ET us Charity [facility] IMG MRI PROCEDURES Final Resu lt * External Diabetic Retina Eye Exam Report (02/21/2025) Anatomical Region Laterality Modality Ultrasound us Provider [facility] US PROCEDURES Final Result * (ABNORMAL) Lipid panel with reflex to direct LDL (02/01/2025 12:49 PM EDT) Cholesterol 207(H) 0 - 200 mg/dL LAB CHEMISTRY METHOD 02/01/2025 6:51 PM EDT [facility] Triglycerides 44 0 - 150 mg/dL LAB CHEMISTRY METHOD 02/01/2025 6:51 PM EDT [facility] HDL 100 >=40 mg/dL LAB CHEMISTRY METHOD 02/01/2025 6:51 PM EDT [facility] LDL Calculated 98 0 - 100 mg/dL LAB CHEMISTRY METHOD 02/01/2025 6:51 PM EDT [facility] Comment:Estimated LDL Calcul ated using equation: Total cholesterol - HDL cholesterol - (Triglycerides/5) VLDL Cholesterol Miles 8.8 mg/dL LAB CHEMISTRY METHOD 02/01/2025 6:51 PM EDT [facility] Non HDL Chol. (LDL+VLDL) 107 <145 mg/dL LAB CHEMISTRY METHOD 02/01/2025 6:51 PM EDT [facility] Chol/HDL Ratio 2.1 0.0 - 4.4 LAB CHEMISTRY METHOD 02/01/2025 6:51 PM EDT [facility] Blood Venous blood specimen / Unknown Venipuncture / Unknown 02/01/2025 12:49 PM EDT 02/01/2025 12:49 PM EDT us Rebecca Encinas MD LAB BLOOD ORDERABLES Final Resul t [facility] [address] [place] [address], [place] [phone] * (ABNORMAL) Hemoglobin A1c (02/01/2025 12:49 PM EDT) [facility] Hemoglobin A1C 8.5(H) <6.5 % LAB CHEMISTRY METHOD 02/01/2025 10:19 PM EDT [facility] Mean Bld Glu Estim. 197 mg/dL LAB CHEMISTRY METHOD 02/01/2025 10:19 PM EDT [facility] Blood Venous blood specimen / Unknown Venipuncture / Unknown 02/01/2025 12:49 PM EDT 02/01/2025 12:49 PM EDT Rebecca Encinas MD LAB BLOOD ORDERABLES Final Resul t Performing Organization Address City/[facility]/ZIP Co de Phone Number [facility] [address] [place] [address], * Chlamydia trachomatis and Neisseria gonorrhoeae molecular study (07/27/2024 3:19 PM EST) [facility] Neisseria gonorrhoeae PCR Negative Negative LAB MOLECULAR DIAGNOSTICS METHOD 07/28/2024 9:36 AM EST [facility] Chlamydia trachomatis PCR Negative Negative LAB MOLECULAR DIAGNOSTICS METHOD 07/28/2024 9:36 AM EST [facility] Swab Cervix uteri structure / Unknown Non-blood Collection / Unknown 07/27/2024 3:19 PM EST 07/27/2024 3:19 PM EST Marbella Pro MD LAB MICROBIOLOGY - GENERAL ORDERABLES Final Result [facility] [address] [place] [address], [place] [phone] * HIV Screening (11/23/2020) [facility] HIV Screening abstracted Kevin Husain MD HEALTH MAINTENANCE Final Result * Hepatitis C Screening (11/23/2020) Hepatitis C Screening abstracted Historical Provider HEALTH MAINTENANCE Final Result * Pap smear (04/12/2020) 04/12/2020 Narrative HISTORICAL TESTING LAB RESULTING AGENCY - 04/14/2020 12:26 PM EST [id number] THINPREP PAP, IMAGED: NEGATIVE FOR SQUAMOUS INTRAEPITHELIAL [...] Most Recently Relevant to Health Maintenance [place] [address] HEALTH PLAN Care Teams Senior Cost Analyst Relationship Specialty Start Date End Date Rebecca Encinas MD [address] [place] [address] PCP - General Internal Medicine 09/10/24
--- OUTSIDE RECORDS SUMMARY | 2025-05-13 19:42 | XMS_ITS | Encounter Summary ---
Author Organization [facility] Address [address] [place] [address] Care Team Providers Care General Operator Name Role Phone Rebecca Encinas MD Primary Care Provider [phone] Encounter Details Date Type Department Care Team ([facility] Contact Info) Description 03/07/2025 Results Follow-Up Gastroenterology - [place] 175 [facility] 175 [facility] [address] [place] [phone] Charity Wall PA 299 [facility] [address] [place] [address] Social History Tobacco Use Types Packs/Day Years [...] Upcoming Encounters Date Type Department Care Team ([facility] Contact Info) Description 05/16/2025 8:50 AM EST Office Visit Gastroenterology - [address] [place] [address] [facility] [address] [place] [phone] Charity Wall PA [address] [facility] [address] [place] [address] 06/23/2025 2:00 PM EST Office Visit Adult Medicine [facility] [address] [place], [place] [phone] Rebecca Encinas MD [address] [place] [address] 10/12/2025 8:15 AM EDT Office Visit Orthopedic Surgery - [place] [address] [phone] Wei Sheppard, DPM [address] [phone] documented as of this encounter Visit Diagnoses Not on filedocumented in this encounter Additional Health Concerns Assessment Noted Time PHQ-9 Depression Total Score: 11 025 2:47 PM EST documented as of this encounter Care Teams General Operator Relationship Specialty Start Date End Date Rebecca Encinas MD [address] [place] [address] PCP - General Internal Medicine 09/10/24 documented as of this encounter
== END 2025-05-13 15:10 | disposition home or self-care (01) ==
LOC: HO.HKA 14:28
PROVIDERS: PCP Internal Medicine; Visit Provider Internal Medicine Nephrology
DX: I10 Essential (primary) hypertension (principal); E10.21 Type 1 diabetes mellitus with diabetic nephropathy
CPT/HCPCS: 99214

== ENCOUNTER → 2025-05-13 14:28 | Outpatient (BNVA) | payer OTHER, SELFPAY | PROVIDERS: PCP Internal Medicine; Visit Provider Internal Medicine Nephrology | DX: I10 Essential (primary) hypertension (principal); E10.21 Type 1 diabetes mellitus with diabetic nephropathy; Z79.899 Other long term (current) drug therapy; I50.30 Unspecified diastolic (congestive) heart failure | CPT/HCPCS: 99212 ==

== ENCOUNTER 2025-05-25 14:23 | Outpatient (REF) | payer OTHER, SELFPAY ==
--- OUTSIDE RECORDS SUMMARY | 2025-05-20 12:36 | XMS_ITS | Encounter Summary ---
Author Organization [facility] Address [address] [place] [address] Care Team Providers Care Field Supervisor Name Role Phone Rebecca Encinas MD Primary Care Provider [phone] Reason for Referral * Hospital - Outpatient (Routine) - Closed Specialty Diagnoses / Procedures Referred By Sarah frost Referred To Contact Gastroenterology Diagnoses Nausea and vomiting, unspecified vomiting type Epigastric abdominal pain Gastroesophageal reflux disease, unspecified whether esophagitis present Procedures EGD Anesthesia - MAC; [facility] ENDOSCOPY Wong Ashford MD [address] [address] Phone: tel: fax: [facility] Endoscopy [address] [place] [address] Phone: tel: Referral ID Status Reason Start Date Expiration Date Visits Re quested Visits Authorized [id number] Closed 05/16/2025 05/16/2026 1 1 Reason for Visit * Auth/Cert (Routine) Specialty Diagnoses / Procedures Referred By Sarah frost Referred To Contact Diagnoses Nausea with vomiting, unspecified Epigastric pain Gastro-esophageal reflux disease without esophagitis Procedures EGD OH EGD FLEXIBLE TRANSORAL DX INCL SHAY SPEC BY BRUSHING/WASHING [facility] Endoscopy [address] [place] [address] Phone: tel: Referral ID Status Reason Start Date Expiration Date Visits Re quested Visits Authorized [id number] 1 1 Encounter Details Date Type Department Care Team ([facility] st Contact Info) Description 05/20/2025 12:36 PM EST - 05/20/2025 11:59 PM EST Hospital Encounter [facility] Endoscopy [address] [place] [address] Wong Ashford MD [address] [address] Dusty Charles MD [address] [place] [address] Tess Santos CRNA [address] [facility] [place] [address] Nausea and vomiting, unspecified vomiting type; Epigastric abdominal pain; Gastroesophageal reflux disease, unspecified whether esophagitis present Discharge Disposition: Home or Self Care Social History Tobacco Use Types Packs/Day Years Used Date Smoking Tobacco: Every Day Cigarettes Smokeless Tobacco: Never Alcohol Use Standard Drinks/Week Comments Not Currently 0 (1 standard drink = 0.6 oz pur e alcohol) Interpersonal Safety Answer Date Record ed Physical Abuse Unrecognized value 05/20/2025 Verbal Abuse Unrecognized value 05/20/2025 Comments No Sex and Gender Information Value Date Recorded Sex Assigned at Female 04/13/2024 7:52 AM EST Legal Sex Female 5:25 AM EST Gender Identity Female 04/13/2024 7:52 AM EST Sexual Orientation Choose not to disclose 2023 7:52 AM EST documented as of this encounter Last Filed Vital Signs Vital Sign Reading Time Taken Comments Blood Pressure 115/82 05/20/2025 1:47 PM EST Pulse 103 05/20/2025 1:47 PM EST Temperature 36.5 C (97.7 F) 05/20/2025 1:27 PM EST Respiratory Rate 22 05/20/2025 1:47 PM EST Oxygen Saturation 96% 05/20/2025 1:47 PM EST Inhaled Oxygen Concentration - - Weight 94.3 kg (208 lb) 05/20/2025 12:50 PM EST Height 157.5 cm (5' 2 ) 05/20/2025 12:50 PM EST Body Mass Index 38.04 05/20/2025 12:50 PM EST documented in this encounter Discharge Instructions * Attachments The following attachments cannot be sent through Care Everywhere. * EGD (Upper Endoscopy): Post op ([place]) documented in this encounter Medications at Time of Discharge acetaminophen (TYLENOL) 500 mg tablet TAKE 1 BY MOUTH EVERY 6 HOURS NEEDED FOR PAIN 10/13/2024 amLODIPine (NORVASC) 10 mg tablet TAKE 1 TABLET BY MOUTH 1 TIME EACH DAY. 90 tablet 1 04/22/2025 atorvastatin (LIPITOR) 10 mg tablet Take 1 tablet (10 mg total) by mouth 1 (one) time each day in the evening. 02/24/2025 busPIRone (BUSPAR) 7.5 mg tablet Take 1 tablet (7.5 mg total) by mouth 2 (two) times a day. 03/29/2025 butalbital-acetamin ophen-caffeine (FIORICET, ESGIC) 50-325-40 mg per tablet Take 1 tablet by mouth 3 (three) times a day if needed for migraine. 02/26/2025 CHOLECALCIFEROL, VITAMIN D3, ORAL Take 1 Tab by mouth daily. esomeprazole (NexIUM) [address] capsule TAKE 1 CAPSULE BY MOUTH 1 TIME EACH DAY BEFORE BREAKFAST. DO NOT OPEN CAPSULE. 90 capsule 3 02/07/2025 furosemide (LASIX) 20 mg tablet Take 1 tablet (20 mg total) by mouth 1 (one) time each day. 09/25/2024 glucagon (Gvoke HypoPen 2-Pack) 0.5 mg/0.1 mL auto-injector Inject 0.5 mg under the skin if needed (low blood sugar). 0.2 each 3 07/02/2024 hydrALAZINE (APRESOLINE) 25 mg tablet take 1 tablet (25 mg) by mouth twice daily for 30 days 05/04/2025 hydrOXYzine HCL (ATARAX) 25 mg tablet Take 1 tablet (25 mg total) by mouth every 8 (eight) hours if needed for anxiety. 90 tablet 04/01/2025 insulin aspart (NovoLOG FlexPen) 100 unit/mL (3 mL) injection pen 1 TO 5 UNITS FOR CARBS .1 TO 20 UNITS FOR BLOOD SUGAR ABOVE 120 SLIDING SCALE Dispense aspart , generic only 15 mL 11 08/05/2024 insulin glargine (Lantus Solostar U-100 Insulin) 100 unit/mL (3 mL) injection pen 50 units Sc at bedtime 15 mL 11 07/02/2024 isosorbide mononitrate (IMDUR) 60 mg 24 hr tablet Take 1 tablet (60 mg total) by mouth 1 (one) time each day. 05/04/2025 lamoTRIgine (LaMICtal) 25 mg tablet Take 1 tablet (25 mg total) by mouth 1 (one) time each day. 03/29/2025 loratadine (CLARITIN) 10 mg tablet Take 10 mg by mouth daily. LORazepam (ATIVAN) 0.5 mg tablet Take 1 tablet (0.5 mg total) by mouth every 8 (eight) hours if needed for anxiety. 02/26/2025 losartan (COZAAR) 100 mg tablet Take 1 tablet (100 mg total) by mouth 1 (one) time each day. 10/12/2024 medical supply, miscellaneous (MISCELLANEOUS MEDICAL SUPPLY MISC) SYRINGE-NEEDLE, DISP, 3 ML 25G X 5/8 3 ML MISC To inject medication into the skin every 3 months. 11/13/2020 metoclopramide (REGLAN) 5 mg tablet Take 1 tablet (5 mg total) by mouth 3 (three) times a day before meals. 90 each 3 03/08/2025 6 metoprolol succinate (TOPROL-XL) 25 mg 24 hr tablet Take 1 tablet (25 mg total) by mouth 1 (one) time each day. Do not crush or chew. 90 each 03/10/2025 6 ondansetron ODT (ZOFRAN-ODT) 8 mg disintegrating tablet Dissolve 1 tablet (8 mg total) on top of the tongue every 8 (eight) hours if needed for nausea or vomiting. 30 tablet 1 03/07/2025 SUMAtriptan (IMITREX) 100 mg tablet TAKE 1 TABLET BY MOUTH 1 TIME IF NEEDED FOR MIGRAINE. MAY REPEAT DOSE ONCE IN 2 HOURS IF NO RELIEF. DO NOT EXCEED 2 DOSES IN 24 HOURS. 9 tablet 1 04/29/2025 Ventolin HFA 90 mcg/actuation inhalerIndications: Mild intermittent asthma without complication INHALE 2 PUFFS BY MOUTH EVERY 4 (FOUR) HOURS IF NEEDED FOR WHEEZING. 18 each 1 05/12/2025 documented as of this encounter Discharge Disposition Disposition Code Departure Means Destination Home or Self Care documented in this encounter Progress Notes * Samanta Falk RN - 05/20/2025 1:57 PM EST Problem: Cognitive:Periop Procedure - Minor Goal: Knowledge of disease or condition will improve Outcome: Adequate for Discharge Problem: Sensory:Periop Procedure - Minor Goal: Demonstrates/reports adequate pain control Outcome: Adequate for Discharge documented in this encounter H&P Notes * Wong Ashford MD - 05/20/2025 1:30 PM EST Pre-Op Diagnosis: GERD, nausea and vomiting Proposed Procedure: Gastroscopy Performing Surgeon/MD/Endoscopist: Wong Ashford MD Medical/History: Medical History[1]Surgical History[2] Medications/Allergies: Prior to Admission medications Medication Sig Start Date End Date Taking? Authorizing Provider acetaminophen (TYLENOL) 500 mg tablet TAKE 1 BY MOUTH EVERY 6 HOURS NEEDED FOR PAIN 10/13/24 Historical Provider, amLODIPine (NORVASC) 10 mg tablet TAKE 1 TABLET BY MOUTH 1 TIME EACH DAY. Patient not taking: Reported on 05/16/2025 04/22/25 Rebecca Encinas MD atorvastatin (LIPITOR) 10 mg tablet Take 1 tablet (10 mg total) by mouth 1 (one) time each day in the evening. 02/24/25 Historical Provider, busPIRone (BUSPAR) 7.5 mg tablet Take 1 tablet (7.5 mg total) by mouth 2 (two) times a day. Patient taking differently: Take 10 mg by mouth 2 (two) times a day. 03/29/25 Historical Provider, twrlobbfaw-oxydhlmszrbgh-hyotnudv (FIORICET, ESGIC) 50-325-40 mg per tablet Take 1 tablet by mouth 3 (three) times a day if needed for migraine. 02/26/25 Historical Provider, CHOLECALCIFEROL, VITAMIN D3, ORAL Take 1 Tab by mouth daily. Historical Provider, clotrimazole (LOTRIMIN) 1 % cream Apply topically 2 (two) times a day. 04/14/25 05/16/25 Wei Sheppard DPM esomeprazole (NexIUM) [address] capsule TAKE 1 CAPSULE BY MOUTH 1 TIME EACH DAY BEFORE BREAKFAST. DONOT OPEN CAPSULE. 02/07/25 JOSSELIN Velazquez furosemide (LASIX) 20 mg tablet Take 1 tablet (20 mg total) by mouth 1 (one) time each day. Patient taking differently: Take 4 tablets (80 mg total) by mouth 2 (two) times a day. 09/25/24 Historical Provider, glucagon (Gvoke HypoPen 2-Pack) 0.5 mg/0.1 mL auto-injector Inject 0.5 mg under the skin if needed (low blood sugar). 07/02/24 JOSSELIN Mattson hydrALAZINE (APRESOLINE) 25 mg tablet take 1 tablet (25 mg) by mouth twice daily for 30 days Patient taking differently: 2 tablets (50 mg total) 2 (two) times a day. 05/04/25 Historical Provider, hydrOXYzine HCL (ATARAX) 25 mg tablet Take 1 tablet (25 mg total) by mouth every 8 (eight) hours ifneeded for anxiety. 04/01/25 Rebecca Encinas MD insulin aspart (NovoLOG FlexPen) 100 unit/mL (3 mL) injection pen 1 TO 5 UNITS FOR CARBS .1 TO 20 UNITS FOR BLOOD SUGAR ABOVE 120 SLIDING SCALE Dispense aspart , generic only 08/05/24 JOSSELIN Mattson insulin glargine (Lantus Solostar U-100 Insulin) 100 unit/mL (3 mL) injection pen 50 units Sc at bedtime 07/02/24 JOSSELIN Mattson isosorbide mononitrate (IMDUR) 60 mg 24 hr tablet Take 1 tablet (60 mg total) by mouth 1 (one) timeeach day. Patient taking differently: Take 90 mg by mouth 1 (one) time each day. 05/04/25 Historical Provider, lamoTRIgine (LaMICtal) 25 mg tablet Take 1 tablet (25 mg total) by mouth 1 (one) time each day. Patient taking differently: Take 2 tablets (50 mg total) by mouth 1 (one) time each day. 03/29/25 Historical Provider, loratadine (CLARITIN) 10 mg tablet Take 10 mg by mouth daily. Historical Provider, LORazepam (ATIVAN) 0.5 mg tablet Take 1 tablet (0.5 mg total) by mouth every 8 (eight) hours if needed for anxiety. 02/26/25 Historical Provider, losartan (COZAAR) 100 mg tablet Take 1 tablet (100 mg total) by mouth 1 (one) time each day. 10/12/24 Historical Provider, medical supply, miscellaneous (MISCELLANEOUS MEDICAL SUPPLY MISC) SYRINGE- NEEDLE, DISP, 3 ML 25G X 10/07 3 ML MISC To inject medication into the skin every 3 months. 11/13/20 Historical Provider, metoclopramide (REGLAN) 5 mg tablet Take 1 tablet (5 mg total) by mouth 3 (three) times a day before meals. 03/08/25 03/08/26 JOSSELIN Velazquez metoprolol succinate (TOPROL-XL) 25 mg 24 hr tablet Take 1 tablet (25 mg total) by mouth 1 (one) time each day. Do not crush or chew. 03/10/25 06/08/25 Rebecca Encinas MD ondansetron ODT (ZOFRAN-ODT) 8 mg disintegrating tablet Dissolve 1 tablet (8 mg total) on top of the tongue every 8 (eight) hours if needed for nausea or vomiting. 03/07/25 JOSSELIN Velazquez SUMAtriptan (IMITREX) 100 mg tablet TAKE 1 TABLET BY MOUTH 1 TIME IF NEEDED FOR MIGRAINE. MAY REPEAT DOSE ONCE IN 2 HOURS IF NO RELIEF. DO NOT EXCEED 2 DOSES IN 24 HOURS. 04/29/25 JOSSELIN Edmond Ventolin HFA 90 mcg/actuation inhaler INHALE 2 PUFFS BY MOUTH EVERY 4 (FOUR) HOURS IF NEEDED FOR WHEEZING. 05/12/25 Rebecca Encinas MD Patient Age:29 y.o. Vitals: Vitals: 05/20/25 1250 BP: 135/87 Pulse: 99 Resp: 18 Temp: 36.5 ??C (97.7 ??F) SpO2: 95% Physical Exam: Mental Status: Clear HEENT: WNL Heart: WNL Lungs: WNL Abdomen: WNL Extremities: WNL Neuro: WNL Diagnosis/Plan: GERD, nausea vomiting Plan for gastroscopy Board Certified Gastroenterology [facility] [phone] [address] [facility]. [facility] [address] [place] [address] [email or web address] Wong Ashford MD 1:06 PM EST [1] Past Medical History: Diagnosis Date CHF (congestive heart failure) ([facility] V24, [facility] V28) Depression with anxiety DX:Depression with anxiety Endometriosis Headache DX:Headache Hyperlipidemia Hypertension Mild intermittent asthma DX:Mild intermittent asthma Obesity DX:Obesity Tobacco use disorder DX:Tobacco use disorder Type 1 diabetes mellitus (CMS/HCC V24, [facility] V28) DX:Type 1 diabetes mellitus ([facility]); COMMENT: [facility] Endocrinology. Dr. Griffin. Dx age 8 [2] Past Surgical History: Procedure Laterality Date UPPER GASTROINTESTINAL ENDOSCOPY 2007 PROCEDURE: UPPER GI ENDOSCOPY/EXAM; COMMENT: [facility] documented in this encounter Procedure Notes * Samanta Falk RN - 05/20/2025 1:50 PM EST Pt tolerating gingerale. VSS * Samanta Falk RN - 05/20/2025 1:49 PM EST Pt medicated zofran 4mg iv x1 as ordered for c/o nausea documented in this encounter Plan of Treatment Upcoming Encounters Date Type Department Care Team (Late st Contact Info) Description 06/23/2025 2:00 PM EST Office Visit Adult Medicine [address] [phone] Rebecca Encinas MD [address] [place] [address] 10/12/2025 8:15 AM EDT Office Visit Orthopedic Surgery [facility] [address] [facility] [address] [place] [id number] Wei Sheppard, DPM 175 [facility] [address] [place] [address] documented as of this encounter Goals Goal Patient Goal Type Associated Problems Recent Progress Patient-Stated? Author Autogenera cristela Goal Care Plan Autogenerated Problem No Pennie Lau documented as of this encounter Procedures Procedure Name Priority Date/Time Associated Diagnosis Comments EGD Routine 05/20/2025 1:26 PM EST Nausea and vomiting, unspecified vomiting type Epigastric abdominal pain Gastroesophageal reflux disease, unspecified whether esophagitis present TISSUE EXAM Routine 05/20/2025 1:23 PM EST Nausea and vomiting, unspecified vomiting type Epigastric abdominal pain Gastroesophageal reflux disease, unspecified whether esophagitis present documented in this encounter Results * EGD Anesthesia - MAC; [facility] ENDOSCOPY (05/20/2025 1:26 PM EST) Anatomical Region Laterality Modality Other 05/20/2025 1:08 PM EST Impressions 05/20/2025 1:27 PM EST - Z-line regular, 35 cm from the incisors. - Normal esophagus. - Normal stomach. - Normal examined duodenum. - Several biopsies were obtained in the gastric antrum. Recommendation: - Discharge patient to home. - Resume previous diet. - Continue present medications. - Await pathology results. - Return to GI clinic as previously scheduled. Narrative 05/20/2025 1:27 PM EST [facility] GI Patient Name: Wendy Otoole Procedure Date: 05/20/2025 1:08 PM Date of : 1995 Age: 29 Room: ROOM 14 Gender: Female Note Status: Finalized Attending MD: Wong Ashford MD, Procedure Date No Time: 05/20/2025 Procedure: Upper GI endoscopy Indications: Epigastric abdominal pain, Nausea with vomiting Providers: Wong Ashford MD Referring MD: Wong Ashford MD Medicines: Monitored Anesthesia Care Complications: No immediate complications. Estimated Blood Loss: Estimated blood loss: none. Procedure: Pre-Anesthesia Assessment: - ASA Grade Assessment: III - A patient with severe systemic disease. - After reviewing the risks and benefits, the patient was deemed in satisfactory condition to undergo the procedure. After obtaining informed consent, the endoscope was passed under direct vision. Throughout the procedure, the patient's blood pressure, pulse, and oxygen saturations were monitored continuously.The Endoscope was introduced through the mouth, and advanced to the third part of duodenum. The upper GI endoscopy was accomplished without difficulty. The patient tolerated the procedure well. Findings: The Z-line was regular and was found 35 cm from the incisors. The esophagus was normal. The entire examined stomach was normal. Several biopsies were obtained in the gastric antrum with cold forceps for histology. Estimated blood loss was minimal. The examined duodenum was normal. Procedure Code(s): --- Professional --- 98000, Esophagogastroduodenoscopy, flexible, transoral; with biopsy, single or multiple Diagnosis Code(s): --- Professional --- R10.13, Epigastric pain R11.2, Nausea with vomiting, unspecified CPT copyright 2020 [employer]. All rights reserved. The codes documented in this report are preliminary and upon german professor review may be revised to meet current compliance requirements. Wong Ashford MD 05/20/2025 1:27:23 PM This report has been signed electronically.Wong Ashford MD Number of Addenda: 0 Note Initiated On: 05/20/2025 1:08 PM Scope In: Scope Out: Endoscopy Department at [facility] - [address] [place] [id number] Procedure Note Wong Ashford MD - 05/20/2025 [facility] GI Patient Name: Wendy Otoole Procedure Date: 05/20/2025 1:08 PM Date of : 1995 Age: 29 Room: ROOM 14 Gender: Female Note Status: Finalized Attending MD: Wong Ashford MD, Procedure Date No Time: 05/20/2025 Procedure: Upper GI endoscopy Indications: Epigastric abdominal pain, Nausea with vomiting Providers: Wong Ashford MD Referring MD: Wong Ashford MD Medicines: Monitored Anesthesia Care Complications: No immediate complications. Estimated Blood Loss: Estimated blood loss: none. Procedure: Pre-Anesthesia Assessment: - ASA Grade Assessment: III - A patient with severe systemic disease. - After reviewing the risks and benefits, thepatient was deemed in satisfactory condition to undergo the procedure. After obtaining informed consent, the endoscope was passed under direct vision. Throughout theprocedure, the patient's blood pressure, pulse, and oxygen saturations were monitored continuously.TheEndoscope was introduced through the mouth, and advanced tothe third part of duodenum. The upper GI endoscopy was accomplished without difficulty. The patienttolerated the procedure well. Findings: The Z-line was regular and was found 35 cm from the incisors. The esophagus was normal. The entire examined stomach was normal. Several biopsies were obtained in the gastric antrum withcold forceps for histology. Estimated blood loss was minimal. The examined duodenum was normal. Procedure Code(s): --- Professional --- 55297, Esophagogastroduodenoscopy, flexible, transoral; with biopsy, single or multiple Diagnosis Code(s): --- Professional --- R10.13, Epigastric pain R11.2, Nausea with vomiting, unspecified CPT copyright 2020 [employer]. All rights reserved. The codes documented in this report are preliminary and upon german professor reviewmay be revised to meet current compliance requirements. Wong Ashford MD 05/20/2025 1:27:23 PM This report has been signed electronically.Wong Ashford MD Number of Addenda: 0 Note Initiated On: 05/20/2025 1:08 PM Scope In: Scope Out: Endoscopy Department at [facility] - [address] [place] [id number] IMPRESSION: - Z-line regular, 35 cm from the incisors. - Normal esophagus. - Normal stomach. - Normal examined duodenum. - Several biopsies were obtained in the gastricantrum. Recommendation: - Discharge patient to home. - Resume previous diet. - Continue present medications. - Await pathology results. - Return to GI clinic as previously scheduled. us Wong Ashford MD GI~PROCEDURE ORDERABLES Final Result * Tissue exam (05/20/2025 1:23 PM EST) Final Diagnosis Gastric, Antrum, biopsies: Gastric mucosa with mild chronic inactive gastritis and reactive changes. No Helicobacter type gastritis identified. 05/23/2025 2:11 PM EST [facility] at 1411 EST Gross Description A. Gastric, Antrum, biopsies antrum: Labeled biopsies gastric ant . Received in formalin are four soft, vincent-pink to red tissue fragments measuring approximately 0.25 cm in greatest diameter, which are wrapped in paper and submitted in toto in one cassette, four pieces, multiple levels. TS 05/23/2025 2:11 PM EST [facility] Disclaimer Unless otherwise specified, all tissue is 10% NB formalin fixed and paraffin embedded. 05/23/2025 2:11 PM EST [facility] Tissue Pyloric antrum structure / Unknown 05/20/2025 1:23 PM EST 05/20/2025 3:03 PM EST us Wong Ashford MD LAB PATHOLOGY ORDERABLES Gail l Result [facility] [address] [place] [address], documented in this encounter Visit Diagnoses Diagnosis Nausea and vomiting, unspecified vomiting type Epigastric abdominal pain Abdominal pain, epigastric Gastroesophageal reflux disease, unspecified whether esophagitis present documented in this encounter Administered Medications Inactive Administered Medications - up to 3 most recent administrations Medication Order MAR Action Action Date Dose Rate Site ondansetron (PF) (ZOFRAN) injection 4 mg 4 mg, intravenous, Once, On Fri05/20/25 at 1415, For 1 dose, Infuse over 2 minutes. Given 05/20/2025 1:49 PM EST 4 mg documented in this encounter Orders Medications Ordered That Charanjit ht Not Have Been Administered Count Last Ordered Date First Ordered Date ondansetron (PF) (ZOFRAN) injection 4 mg 1 05/20/2025 Discharge Count Last Ordered Date First Orde red Date DISCHARGE PATIENT 1 05/20/2025 documented in this encounter Additional Health Concerns Active Problems Noted Date Diagnosed Date Autogenerated Problem 05/16/2025 Assessment Noted Time PHQ-9 Depression Total Score: 11 025 2:47 PM EST documented as of this encounter Care Teams Field Supervisor Relationship Specialty Start Date End Date Rebecca Encinas MD [address] [place] [address] PCP - General Internal Medicine 09/10/24 documented as of this encounter
--- OUTSIDE RECORDS SUMMARY | 2025-05-20 13:16 | XMS_ITS | Encounter Summary ---
Author Organization [facility] Address [address] [place] [address] Care Team Providers Care Hand Shaper Name Role Phone Rebecca Encinas MD Primary Care Provider [phone] Reason for Visit * Auth/Cert (Routine) Specialty Diagnoses / Procedures Referred By Contmarianne t Referred To Contact Diagnoses Nausea with vomiting, unspecified Epigastric pain Gastro-esophageal reflux disease without esophagitis Procedures EGD SC EGD FLEXIBLE TRANSORAL DX INCL SHAY SPEC BY BRUSHING/WASHING [facility] End[facility] [address] [place] [address] Phone: tel: Referral ID Status Reason Start Date Expiration Date Visits Re quested Visits Authorized [id number] 1 1 Encounter Details Date Type Department Care Team (Late st Contact Info) Description 05/20/2025 1:16 PM EST Anesthesia Event [facility] End[facility] [address] [place] [address] Dusty Charles MD [address] [place] [address] Anesthesia Record Procedure Summary Procedure Name Responsible Anesthesiologist Anesthesia Start Time Anesthesia Stop Time EGD Dusty Charles MD 05/20/25 1316 05/20/25 1330 Events Date Time Event Comment 05/20/2025 1303 1316 An Start 1316 An Start Data The patient wa s reevaluated immediately before moderate or deep sedation use and before anesthesia induction. 1316 In Room 1318 Anesthesia Ready 1324 an stop data 1326 Out of Room 1330 Handoff to RN I completed my handoff to the receiving nurse during which we: 1. Identified the patient 2. Identified the responsible provider 3. Reviewed the pertinent medical history 4. Discussed the surgical course 5. Reviewed intra-op anesthesia management and issues during anesthesia 6. Set expectations for post-procedure period 7. Allowed opportunity for questions and acknowledgement of understanding. 1330 An Stop Meds Name Total propofol (DIPRIVAN) injection 10 mg/mL 4 50 mg lidocaine PF (XYLOCAINE-MPF) local injec tion 2% 100 mg lactated Ringer's infusion 100 mL * Agents No agents on file. * Blood No blood administrations on file. Lines, Drains, and Airways Type Details Placement Removal Peripheral IV Placement Date: 05/20/25; Placement Time: 1253; Catheter Size: 20 G; Orientation: Posterior, Right; Location: Hand; Site Prep: Chlorhexidine; Insertion Attempts: 1; Patient Tolerance: Tolerated well; Removal Date: 05/20/25; Removal Time: 1357 05/20/25 1253 by Lashawn Small RN 05/20/25 1357 by Samanta Falk RN documented in this encounter Social History Tobacco Use Types Packs/Day Years [...] as of this encounter Progress Notes * Tess Santos CRNA - 05/20/2025 1:30 PM EST Patient: Wendy Otoole Procedure Summary Date: 05/20/25 Room / Location: [facility] Endoscopy Anesthesia Start: 1316 Anesthesia Stop: 1330 Procedure: EGD Diagnosis: Nausea and vomiting, unspecified vomiting type Epigastric abdominal pain Gastroesophageal reflux disease, unspecified whether esophagitis present (Epigastric abdominal pain) (Nausea with vomiting) Scheduled Providers: Wong Ashford MD; Dusty Charles MD; Tess Santos CRNA Responsible Provider: Dusty Charles MD Anesthesia Type: MAC ASA Status: 3 Anesthesia Plan: MAC Last Vitals: Vitals Value Taken Time BP 96/70 05/20/25 13:30 Temp 97 05/20/25 13:30 Pulse 101 05/20/25 13:30 Resp 15 05/20/25 13:30 SpO2 98 05/20/25 13:30 No data recorded Anesthesia Post Evaluation Patient location during evaluation: PACU Patient participation: complete - patient participated Level of consciousness: sleepy but conscious Pain management: adequate Airway patency: patent Anesthetic complications: no Cardiovascular status: acceptable and hemodynamically stable Respiratory status: acceptable and room air Hydration status: acceptable Nausea: No Vomiting: No There were no known notable events for this encounter. 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 Anesthesia Evaluation No history of anesthetic complications Airway Mallampati: II Dental - normal exam Pulmonary - normal exam (+) asthma (-) COPD, sleep apnea Cardiovascular Exercise tolerance: good (+) hypertension (-) past [place], dysrhythmias Rhythm: regular Rate: normal ROS comment: HLD Neuro/Psych (+) TIA (?TIA/stroke in 07/2024; patient was using drugs at the time, no residual symptoms), headaches (-) seizures, CVA GI/Hepatic/Renal (-) GERD, liver disease, renal disease Endo/Other (+) diabetes mellitus type 1 using insulin Abdominal (+) obese PONV RISK SCORE: 1 There were no vitals filed for this visit. SpO2 Readings from Last 1 Encounters: 05/16/25 94% WBC Date Value Ref Range Status 04/05/2025 9.1 4.8 - 10.8 K/mcL Final RBC Date Value Ref Range Status 04/05/2025 4.20 3.80 - 4.80 M/mcL Final Hemoglobin Date Value Ref Range Status 04/05/2025 12.0 11.5 - 16.0 g/dL Final Hematocrit Date Value Ref Range Status 04/05/2025 36.8 35.0 - 47.0 % Final Platelets Date Value Ref Range Status 04/05/2025 423 (H) 130 - 400 K/mcL Final MCV Date Value Ref Range Status 04/05/2025 86.8 79.0 - 98.0 FL Final Allergies[1] STOP BANG: No data recorded NPO Status: No data recorded [1] Allergies Allergen Reactions Clindamycin Other Reaction(s): Rash/Dermatitis Other SEASONAL Shellfish Derived Sulfa (Sulfonamide Antibiotics) Hives documented in this encounter Plan of Treatment Upcoming Encounters Date Type Department Care Team (Late st Contact Info) Description 06/23/2025 2:00 PM EST Office Visit Adult Medicine [address] [phone] Rebecca Encinas MD [address] [place] [address] 10/12/2025 8:15 AM EDT Office Visit Orthopedic Surgery [facility] [address] [address] Wei Sheppard, DPM [address] [address] documented as of this encounter Goals Goal Patient Goal Type Associated Problems Recent Progress Patient-Stated? Author Autogenera cristela Goal Care Plan Autogenerated Problem No Pennie Lau documented as of this encounter Visit Diagnoses Not on filedocumented in this encounter Administered Medications Inactive Administered Medications - up to 3 most recent administrations Medication Order MAR Action Action Date Dose Rate Site lactated Ringer's infusion intravenous, Continuous PRN, Starting on Fri05/20/25 at 1316, Anesthesia Intraprocedure New Bag 05/20/2025 1:16 PM EST lidocaine (PF) (XYLOCAINE-MPF) 2 % injection injection, As needed, Starting on Fri05/20/25 at 1318, Anesthesia Intraprocedure Given 05/20/2025 1:18 PM EST 100 mg propofoL (DIPRIVAN) injection intravenous, As needed, Starting on Fri05/20/25 at 1318, Anesthesia Intraprocedure Given 05/20/2025 1:22 PM EST 50 mg Given 05/20/2025 1:21 PM EST 50 mg Given 05/20/2025 1:20 PM EST 50 mg documented in this encounter Additional Health Concerns Active Problems Noted Date Diagnosed Date Autogenerated Problem 05/16/2025 Assessment Noted Time PHQ-9 Depression Total Score: 11 025 2:47 PM EST documented as of this encounter Care Teams Hand Shaper Relationship Specialty Start Date End Date Rebecca Encinas MD [address] [place] [address] PCP - General Internal Medicine 09/10/24 documented as of this encounter
--- OUTSIDE RECORDS SUMMARY | 2025-05-25 14:26 | XMS_ITS | Encounter Summary ---
Author Organization [facility] Address [address] [place] [address] Care Team Providers Care Cook Helper Dessert Name Role Phone Rebecca Encinas MD Primary Care Provider [phone] Encounter Details Date Type Department Care Team ([facility] Contact Info) Description 05/22/2025 Results Follow-Up Gastroenterology - [address] [phone] Charity Wall PA [address] [address] Social History Tobacco Use Types Packs/Day Years [...] encounter Progress Notes * JOSSELIN Velazquez - 05/22/2025 10:20 PM EST I will send msg. documented in this encounter Plan of Treatment Upcoming Encounters Date Type Department Care Team (Late Contact Info) Description 06/23/2025 2:00 PM EST Office Visit Adult Medicine [facility] [address] [place], [place] [phone] Rbeecca Encinas MD [address] [place] [address] 10/12/2025 8:15 AM EDT Office Visit Orthopedic Surgery - [place] [address] [address] Wei Sheppard, DPM [address] [address] documented as of this encounter Goals Goal Patient Goal Type Associated Problems Recent Progress Patient-Stated? Author Autogenera cristela Goal Care Plan Autogenerated Problem No Pennie Lau documented as of this encounter Visit Diagnoses Not on filedocumented in this encounter Additional Health Concerns Active Problems Noted Date Diagnosed Date Autogenerated Problem 05/16/2025 Assessment Noted Time PHQ-9 Depression Total Score: 11 025 2:47 PM EST documented as of this encounter Care Teams Cook Helper Dessert Relationship Specialty Start Date End Date Rebecca Encinas MD [address] [place] [address] PCP - General Internal Medicine 09/10/24 documented as of this encounter
--- OUTSIDE RECORDS SUMMARY | 2025-05-25 14:26 | XMS_ITS | Clinical Summary ---
Author Organization [facility] Address [address] [place] [address] Phone Care Team Providers Care Java Integration Developer Name Role Phone Rebecca Encinas MD Primary Care Provider [phone] Allergies Active Allergy Reactions Criticality Noted Date [...] 50 units Sc at bedtime 15 mL 025 Active Additional Information Patient not taking.Reported on 05/20/2025 glucagon (Gvoke HypoPen 2-Pack) 0.5 mg/0.1 mL [...] mouth 2 (two) times a day. Active amLODIPine (NORVASC) 10 mg tablet TAKE 1 TABLET BY MOUTH 1 TIME EACH DAY. 90 tablet 1 Active Additional Information Patient not taking.Reported on 05/16/2025 SUMAtriptan (IMITREX) 100 mg tablet TAKE 1 [...] NEEDED FOR WHEEZING. 18 each 1 Active SUMAtriptan (IMITREX) 100 mg tablet [...] wheezing. 6.7 g 1 025 2024 Discontinued clotrimazole (LOTRIMIN) 1 % cream Apply topically 2 (two) times a day. 30 g 3 025 2024 Active Problems Problem Noted Date [...] Encounters Date Type Department Care Team Description 05/22/2025 Results Follow-Up Gastroenterology - [address] [facility] [address] [place] [phone] Charity Wall PA 05/20/2025 1:16 PM EST Anesthesia Event [facility] Endoscopy [address] [place] [address] Dusty Charles MD 05/20/2025 12:36 PM EST - 05/20/2025 11:59 PM EST Hospital Encounter [facility] Endoscopy [address] [place] [phone] Wong Ashford MD Chang, Daniel J, MD Couture, Alison, CRNA Nausea and vomiting, unspecified vomiting type; Epigastric abdominal pain; Gastroesophageal reflux disease, unspecified whether esophagitis present Discharge Disposition: Home or Self Care 05/16/2025 8:50 AM EST Office Visit Gastroenterology - 299 [facility] 299 [facility] [address] [place] [phone] Charity Wall PA Nausea and vomiting, unspecified vomiting type (Primary Dx); Epigastric abdominal pain; Gastroesophageal reflux disease, unspecified whether esophagitis present; Hepatic adenoma; High platelet count 05/10/2025 9:00 AM EST Office Visit [facility] Hematology Oncology [address] [place] [phone] Tess Sams PA Thrombophilia ([facility] V24) (Primary Dx) 04/14/2025 2:30 PM EST Office Visit Orthopedic Surgery - [place] [address] [facility] [address] [place] [phone] Wei Sheppard, DPM Dermatophytosis of nail (Primary Dx); Type 1 diabetes mellitus with mononeuropathy ([facility] V24, [facility] V28) 04/05/2025 10:00 AM EST Lab Draw Station - [facility] [address] [phone] Elevated platelet count; Thrombocytosis; Leukocytosis, unspecified type; Iron deficiency anemia, unspecified iron deficiency anemia type 04/05/2025 9:30 AM EST Office Visit [facility] Hematology Oncology [address] [place] [phone] Tess Sams PA Elevated platelet count (Primary Dx) 03/22/2025 1:00 PM EDT Office Visit [facility] Hematology Oncology [address] [place] [phone] Tess Sams PA Elevated platelet count (Primary Dx) 03/17/2025 8:22 AM EDT - 03/17/2025 11:59 PM EDT Hospital Encounter [facility] Nuclear Medicine [address] [place] [phone] Nausea and vomiting, unspecified vomiting type; Gastroesophageal reflux disease, unspecified whether esophagitis present; LLQ abdominal pain Discharge Disposition: Home or Self Care 03/12/2025 [facility] [address] [phone] Charity Wall PA 03/10/2025 2:13 PM EDT - 03/10/2025 11:59 PM EDT Hospital Encounter [facility] CT Scan [address] [place] [phone] Nausea and vomiting, unspecified vomiting type; Gastroesophageal reflux disease, unspecified whether esophagitis present; LLQ abdominal pain Discharge Disposition: Home or Self Care 03/10/2025 9:00 AM EDT Office Visit Adult Medicine [address] [phone] Rebecca Encinas MD Hospital discharge follow-up (Primary Dx); 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, macular edema presence unspecified, unspecified retinopathy severity (CMS/HCC V24, CMS/HCC V28); Primary hypertension; Chronic diastolic heart failure (CMS/HCC V24, CMS/HCC V28); Generalized anxiety disorder 03/08/2025 8:50 AM EDT Office Visit Gastroenterology [address] [phone] Charity Wall PA Nausea and vomiting, unspecified vomiting type (Primary Dx); Gastroesophageal reflux disease, unspecified whether esophagitis present; LLQ abdominal pain; High platelet count 03/07/2025 Results Follow-Up Gastroenterology [facility] [address] [phone] Charity Wall PA 03/07/2025 Telephone Gastroenterology [facility] [address] [phone] Charity Wall PA 02/28/2025 Telephone Adult Medicine [address] [phone] Rebecca Encinas MD 02/23/2025 9:46 AM EDT - 02/23/2025 11:59 PM EDT Hospital Encounter [facility] MRI [address] [place] [address] Gastroesophageal reflux disease, unspecified whether esophagitis present; Nausea and vomiting, unspecified vomiting type Discharge Disposition: Home or Self Care from Last 3 Months Immunizations Immunization Administration Dates Next Due DTaP (Infanrix) 6wks to less than 7yo ,09/03/1999,05/04/1998,1997,1997 [id number] (Pentacel) 2mo to less than 5yo 09/03/1999,05/04/1998,03/01/1998,1997 [...] ENDOSCOPY 2007 PROCEDURE: UPPER GI ENDOSCOPY/EXAM; COMMENT: [facility] Medical History Medical History Date Comments Type 1 diabetes mellitus ( S/[facility] V24, [facility] V28) DX:Type 1 diabetes mellitus (HCC); COMMENT: [facility] [place] [facility]. Dr. Griffin. Dx age 8 Mild intermittent asthma DX:Mild intermittent asthma Obesity DX:Obesity Headache DX:Headache Depression with anxiety DX:Depre ssion with anxiety Tobacco use disorder DX:Tobacco use disorder Endometriosis Hypertension Hyperlipidemia CHF (congestive heart failur e) ([facility] V24, [facility] V28) Family History Medical History Relation Name Comments [...] Not Answered Alcohol Use Standard Drinks/Week Comments Not Currently [...] Mass Index 38.04 05/20/2025 12:50 PM EST Plan of Treatment Upcoming Encounters Date Type Department Care Team (Late st Contact Info) Description 06/23/2025 2:00 PM EST Office Visit Adult Medicine [facility] [address] [place] [address] Rebecca Encinas MD [address] [place] [address] 10/12/2025 8:15 AM EDT Office Visit Orthopedic Surgery - [place] [address] [phone] Wei Sheppard, DPM [address] [phone] Health Maintenance Due Date Last Done Comments [...] 2025 04/30/2021, 04/09/2021 Influenza Vaccine (#1) 2025 1, 03/11/2013, 05/04/2012, Additional history exists Diabetes: Blood [...] on patient's age to complete this topic Goals Goal Patient Goal Type Associated Problems Recent Progress Patient-Stated? Author Autoolivier archibald Goal Care Plan Autogenerated Problem No Pennie Lau Procedures Procedure Name Priority Date/Time Associated Diagnosis Comments EGD Routine 05/20/2025 1:26 PM EST Nausea and vomiting, unspecified vomiting type Epigastric abdominal pain Gastroesophageal reflux disease, unspecified whether esophagitis present TISSUE EXAM Routine 05/20/2025 1:23 PM EST Nausea and vomiting, unspecified vomiting type Epigastric abdominal pain Gastroesophageal reflux disease, unspecified whether esophagitis present EXTERNAL CLINICAL LAB 05/05/2025 EXTERNAL CLINICAL LAB 05/02/2025 CBC WITH AUTO [...] mellitus without complication (CMS/HCC V24, CMS/HCC V28) LIPID PANEL WITH REFLEX TO DIRECT [...] Recently Relevant to Health Maintenance Results * EGD Anesthesia - MAC; [facility] ENDOSCOPY (05/20/2025 1:26 PM EST) Anatomical Region [...] previously scheduled. Narrative 05/20/2025 1:27 PM EST [facility] GI Patient Name: Wendy Martinez Procedure Date: 05/20/2025 1:08 PM Date of [...] was normal. Procedure Code(s): --- Professional --- 30847, Esophagogastroduodenoscopy, flexible, transoral; with biopsy, single or multiple Diagnosis Code(s): --- Professional --- R10.13, Epigastric pain R11.2, Nausea with vomiting, unspecified CPT copyright 2020 [employer]. All rights reserved. The codes documented in this report are preliminary and upon marine equipment sales engineer review may be revised to meet current compliance requirements. Wong Ashford MD 05/20/2025 1:27:23 PM This report has been signed electronically.Wong Ashford MD Number of Addenda: 0 Note Initiated On: 05/20/2025 1:08 PM Scope In: Scope Out: Endoscopy Department at [facility] - [address] [place] [phone] Procedure Note Wong Ashford MD - 05/20/2025 [facility] GI Patient Name: Wendy Martinez Procedure Date: 05/20/2025 1:08 PM Date of [...] was normal. Procedure Code(s): --- Professional --- 37388, Esophagogastroduodenoscopy, flexible, transoral; with biopsy, single or multiple Diagnosis Code(s): --- Professional --- R10.13, Epigastric pain R11.2, Nausea with vomiting, unspecified CPT copyright 2020 [employer]. All rights reserved. The codes documented in this report are preliminary and upon marine equipment sales engineer reviewmay be revised to meet current compliance requirements. Wong Ashford MD 05/20/2025 1:27:23 PM This report has been signed electronically.Wong Ashford MD Number of Addenda: 0 Note Initiated On: 05/20/2025 1:08 PM Scope In: Scope Out: Endoscopy Department at [facility] - [address] [place] [phone] IMPRESSION: - Z-line regular, 35 cm from [...] type gastritis identified. 05/23/2025 2:11 PM EST [facility] at 1411 EST Gross Description A. Gastric, Antrum, biopsies antrum: Labeled biopsies gastric ant . Received in formalin are four soft, vincent-pink to red tissue fragments measuring approximately 0.25 cm in greatest diameter, which are wrapped in paper and submitted in toto in one cassette, four pieces, multiple levels. TS 05/23/2025 2:11 PM EST [facility] Disclaimer Unless otherwise specified, all tissue is 10% NB formalin fixed and paraffin embedded. 05/23/2025 2:11 PM EST [facility] Tissue Pyloric antrum structure / Unknown 05/20/2025 1:23 PM EST 05/20/2025 3:03 PM EST Wong Ashford MD LAB PATHOLOGY ORDERABLES Gail l Result [facility] [address] [place] [address], * External clinical lab (05/05/2025) Only the most recent of3 resultswithin the time period is included. Provider [facility] BLOOD ORDERABLES Fin [...] Nucleotide Change TNP 025 1:39 AM EST [facility] Reference TNP 04/13/2025 1:39 AM EST [facility] Interpretation SEE NOTE 04/13/2025 1:39 AM EST [facility] Comment: No mutation is detected in exon 10 of MPL, encompassing codons 505 and 515. Results reviewed by Saulo Lara M.D. Assay Details SEE NOTE 04/13/2025 1:39 AM EST [facility] Comment: This PCR-based advanced sequencing assay [...] hematologic features, includes BCR-ABL1 rearrangement (test code 82209 or 00310H) or mutational analysis of JAK2 V617F (polycythemia vera (PV)/ET/PMF, 42518), CALR (ET/PMF, 37954), JAK2 exon 12 (PV, 81576) or CSF3R (chronic neutrophilic leukemia, 22378). Residual material from this sample may be used except for BCR-ABL1 testing; call lab to add. DNA was aligned to GRCh37(hg19) for analysis and transcript ID [id number] was used as reference for MPL sequence. For additional information, please refer to http://education.[employer].Kite/faq/VIX602 (This link is being provided for informational/educational purposes only.) This test was developed and its analytical performance characteristics have been determined by [facility]. It has not been cleared or approved by FDA. This assay has been validated pursuant to the CLIA regulations and is used for clinical purposes. Test Performed at: [facility] [address] [place] [address] Rick Cade MD, PhD, SP Blood Venous blood specimen / Unknown Venipuncture / Unknown 04/05/2025 9:59 AM EST 04/05/2025 11:30 AM EST Tess [facility] MOLECULAR DIAGNOSTICS ORD ERABLES Final Result [facility] [address] [place] [address] * Calreticulin mutation analysis (04/05/2025 9:59 AM [...] hematologic features, includes BCR-ABL1 rearrangement (test code 77336 or 65088G) or mutational analysis of JAK2 V617F (polycythemia vera (PV)/ET/PMF, 53224), JAK2 exon 12 (PV, 19267), MPL (ET/PMF, 68748) or CSF3R (chronic neutrophilic leukemia, 60367). Residual material from this sample may be used except for BCR-ABL1 testing; call lab to add. DNA was aligned to GRCh37(hg19) for analysis and transcript ID [id number] was used as reference for CALR sequence. For additional information, please refer to http://education.[employer].Kite/faq/EGE271 (This link is being provided for informational/educational purposes only.) This test was developed and its analytical performance characteristics have been determined by [facility]. It has not been cleared or approved by FDA. This assay has been validated pursuant to the CLIA regulations and is used for clinical purposes. Test Performed at: [facility] [address] [place] [phone] Rick Cade MD, PhD, SP Blood Venous blood specimen / Unknown Venipuncture / Unknown 04/05/2025 9:59 AM EST 04/05/2025 11:30 AM EST Tess [facility] MOLECULAR DIAGNOSTICS ORD ERABLES Final Result [facility] [place] [address] [place] [address] * (ABNORMAL) CBC auto differential (04/05/2025 9:59 AM EST) Only the most recent of2 resultswithin the time period is included. [facility] Signature WBC 9.1 4.8 - 10.8 K/mcL LAB HEMETOLOGY METHOD 04/05/2025 1:06 PM [facility] RBC 4.20 3.80 - 4.80 M/mcL LAB HEMETOLOGY METHOD 04/05/2025 1:06 PM [facility] Hemoglobin 12.0 11.5 - 16.0 g/dL LAB HEMETOLOGY METHOD 04/05/2025 1:06 PM [facility] Hematocrit 36.8 35.0 - 47.0 % LAB HEMETOLOGY METHOD 04/05/2025 1:06 PM [facility] MCV 86.8 79.0 - 98.0 FL LAB HEMETOLOGY METHOD 04/05/2025 1:06 PM [facility] MCH 28.3 27.0 - 32.0 pcg LAB HEMETOLOGY METHOD 04/05/2025 1:06 PM [facility] MCHC 32.6 32.0 - 37.0 g/dL LAB HEMETOLOGY METHOD 04/05/2025 1:06 PM [facility] RDW 12.4 11.0 - 15.0 % LAB HEMETOLOGY METHOD 04/05/2025 1:06 PM [facility] Platelets 423(H) 130 - 400 K/mcL LAB HEMETOLOGY METHOD 04/05/2025 1:06 PM [facility] MPV 9.2 7.0 - 11.0 FL LAB HEMETOLOGY METHOD 04/05/2025 1:06 PM [facility] NRBC 0.0 <1.0 % LAB HEMETOLOGY METHOD 04/05/2025 1:06 PM [facility] NRBC Absolute 0.00 <0.10 K/mcL LAB HEMETOLOGY METHOD 04/05/2025 1:06 PM [facility] Neutrophils Relative 65.6 % LAB HEMETOLOGY METHOD 04/05/2025 1:06 PM [facility] Lymphocytes Relative 27.9 % LAB HEMETOLOGY METHOD 04/05/2025 1:06 PM [facility] Monocytes Relative 4.4 % LAB HEMETOLOGY METHOD 04/05/2025 1:06 PM [facility] Eosinophils Relative 1.2 % LAB HEMETOLOGY METHOD 04/05/2025 1:06 PM [facility] Basophils Relative 0.7 % LAB HEMETOLOGY METHOD 04/05/2025 1:06 PM [facility] Immature Granulocytes Relative 0.2 % LAB HEMETOLOGY METHOD 04/05/2025 1:06 PM [facility] Neutrophils Absolute 5.99 1.50 - 7.00 K/mcL LAB HEMETOLOGY METHOD 04/05/2025 1:06 PM [facility] Lymphocytes Absolute 2.54 1.00 - 5.00 K/mcL LAB HEMETOLOGY METHOD 04/05/2025 1:06 PM [facility] Monocytes Absolute 0.40 0.20 - 1.00 K/mcL LAB HEMETOLOGY METHOD 04/05/2025 1:06 PM [facility] Eosinophils Absolute 0.11 0.00 - 0.50 K/mcL LAB HEMETOLOGY METHOD 04/05/2025 1:06 PM [facility] Basophils Absolute 0.06 0.00 - 0.20 K/mcL LAB HEMETOLOGY METHOD 04/05/2025 1:06 PM [facility] Immature Granulocytes Absolute 0.02 0.00 - 0.03 K/mcL LAB HEMETOLOGY METHOD 04/05/2025 1:06 PM EST [facility] Blood Venous blood specimen / Unknown Venipuncture / Unknown 04/05/2025 9:59 AM EST 04/05/2025 11:31 AM EST Tess [facility] BLOOD ORDERABLES Final Re sult [facility] [address] [place] [address], [place] [phone] * Erythropoietin (04/05/2025 9:59 AM EST) Erythropoietin 14.2 2.6 - 18.5 mIU/mL 04/07/2025 7:43 PM EST [facility] Comment: Test performed at [facility], [address], [place] [address] Lacie Cancino MD, PhD - Medical Screener Blood Venous blood specimen / Unknown Venipuncture / Unknown 04/05/2025 9:59 AM EST 04/05/2025 11:31 AM EST Tess [facility] BLOOD ORDERABLES Final Re sult Performing Organization Address [facility]/ZIP Co de Phone Number [facility] [address] [place] [address] * Lactate dehydrogenase (04/05/2025 9:59 AM EST) LDH 190 120 - 246 unit/L LAB CHEMISTRY METHOD 04/05/2025 12:53 PM EST [facility] Blood Venous blood specimen / Unknown Venipuncture / Unknown 04/05/2025 9:59 AM EST 04/05/2025 11:31 AM EST Tess [facility] BLOOD ORDERABLES Final Re sult [facility] [address] [place] [address], * JAK2 gene, V617F mutation, quantitative, molecular study (03/22/2025 2:18 PM EDT) Pathologist [facility] JAK2 (V617F) Mutation Not detected Not detected 03/25/2025 11:[address] [facility] WBC Percent with V617F Mutation <0.1 <0.1 % 03/25/2025 11:44 AM EDT [facility] Comment: This procedure uses real-time polymerase [...] of this procedure were determined by [facility]. This test is performed pursuant to a license agreement with [employer] Test performed at [facility], [address], [place] [address] Lacie Cancino MD, PhD - Medical Screener Blood Venous blood specimen / Unknown Venipuncture / Unknown 03/22/2025 2:18 PM EDT 03/22/2025 4:39 PM EDT Tess [facility] LAB MOLECULAR DIAGNOSTICS ORD ERABLES Final Result [facility] [address] [place] [address] * Iron and TIBC (03/22/2025 2:18 PM EDT) Pathologist [facility] Iron 72 40 - 150 mcg/dL LAB CHEMISTRY METHOD 03/22/2025 5:14 PM EDT [facility] TIBC 257 250 - 450 mcg/dL LAB CHEMISTRY METHOD 03/22/2025 5:14 PM EDT [facility] Iron Saturation 28 15 - 50 % LAB CHEMISTRY METHOD 03/22/2025 5:14 PM EDT [facility] Blood Venous blood specimen / Unknown Venipuncture / Unknown 03/22/2025 2:18 PM EDT 03/22/2025 5:13 PM EDT Tess [facility] BLOOD ORDERABLES Final Re sult Performing Organization Address [facility]/ZIP Co de Phone Number [facility] [address] [place] [address], [place] [phone] * Ferritin (03/22/2025 2:18 PM EDT) Ferritin 46 8 - 252 ng/mL LAB CHEMISTRY METHOD 03/22/2025 5:13 PM EDT [facility] Blood Venous blood specimen / Unknown Venipuncture / Unknown 03/22/2025 2:18 PM EDT 03/22/2025 5:13 PM EDT Tess [facility] BLOOD ORDERABLES Final Re sult Performing Organization Address [facility]/ZIP Co de Phone Number [facility] [address] [place] [address], [place] [phone] * NM Gastric Emptying Study (03/17/2025 2:16 PM EDT) Anatomical Region Laterality Modality Body Nuclear Medicine 03/17/2025 3:15 PM EDT Impressions 03/17/2025 3:16 PM EDT Normal gastric emptying. -------- FINAL REPORT -------- Dictated By: Nena Cormier Dictated Date: 03/17/2025 15:15 ET Assigned Physician: Nena Cormier Reviewed and Electronically Signed By: Nena Cormier Signed Date: 03/17/2025 15:16 ET Workstation ID: [id number] Transcribed By: Self Edit Transcribed Date: 03/17/2025 [...] Signed Date: 03/17/2025 15:16 ET Workstation ID: [id number] Transcribed By: Self Edit Transcribed Date: 03/17/2025 [...] CT abdomen and pelvis with contrast Comparison: MR/KO/ND/SR - MR ABD WO AND W CONTRAST - 02/23/25 10:[address]/KO/ND - CT ABDOMEN OUTSIDE EXAMINATION - 08/09/24 [...] CT abdomen and pelvis with contrast Comparison: MR/KO/ND/SR - MR ABD WO AND W CONTRAST - 02/23/25 10:[address]/KO/ND - CT ABDOMEN OUTSIDE EXAMINATION - 08/09/24 [...] Negative LAB CHEMISTRY METHOD 1:54 PM EDT [facility] Comment:Certain OTC medicati ons containing ephedrine, phenylephrine, pseudoephedrine and phenylpropanolamine can cause false positive results. Barbiturate Screen, Ur Positive(A ) Negative LAB CHEMISTRY METHOD 1:54 PM EDT [facility] Benzodiazepine Screen, Ur Negative Negative LAB CHEMISTRY METHOD 1:54 PM EDT [facility] Cocaine Screen, Ur Negative Negative [facility] Opiate Screen, Ur Negative Negative LAB CHEMISTRY METHOD 1:54 PM [facility] Cannabinoid (THC) Screen, Ur Positive(A ) Negative LAB CHEMISTRY METHOD 1:54 PM T [facility] Comment:Specimens from patie nts taking pantoprazole sodium (Protonix) have been shown to produce false positive results. Fentanyl, Ur Negative Negative LAB CHEMISTRY METHOD 1:54 PM EDT [facility] Oxycodone Screen, Ur Negative Negative LAB CHEMISTRY METHOD 1:54 PM [facility] Urine Urine specimen obtained by clean catch procedure / Unknown Non-blood Collection / Unknown 03/10/2025 10:23 AM EDT 03/10/2025 10:23 AM EDT Narrative [facility] - 03/10/2025 1:54 PM EDT [...] ORDERABLES Final Resul t Performing Organization Address City/[facility]/ZIP Co de Phone Number [facility] [address] [place] [address], [place] [phone] * (ABNORMAL) Microalbumin creatinine urine ratio (03/10/2025 10:23 AM EDT) Creatinine, Urine 44.0 mg/dL LAB CHEMISTRY METHOD 03/10/2025 1:57 PM EDT [facility] Microalb, Ur 2,260.0(H ) 0.0 - 29.0 mg/L LAB CHEMISTRY METHOD 03/10/2025 1:57 PM EDT [facility] Microalb/Crea t Ratio 5,136(H) <30 mg/g creat LAB CHEMISTRY METHOD 03/10/2025 1:57 PM EDT [facility] Urine Urine specimen obtained by clean catch procedure / Unknown Non-blood Collection / Unknown 03/10/2025 10:23 AM EDT 03/10/2025 10:23 AM EDT Rebecca Encinas MD LAB URINE ORDERABLES Final Resul t Performing Organization Address [facility]/ZIP Co de Phone Number [facility] [address] [place] [address], [place] [phone] * (ABNORMAL) THC, urine, confirmation (03/10/2025 10:23 AM EDT) Tetrahydrocannabinoid (THC) 742(H) Negative ng/mL 03/14/2025 11:[address] [facility] Tetrahydrocannabinoid (THC)/Creatinine Ratio 1726 11:[address] [facility] Creatinine 43 20 - 250 mg/dL 03/14/2025 11:04 PM EDT [facility] Adulterants Negative 03/14/2025 11:04 PM EDT [facility] Comment: The urine THC/creatinine ratio is the best monitor to determine the possibility of continued drug usage. With abstinence, the ratio should decrease within one week by a factor of two or more. Confirmation (GC/MS) Decision Limit THC (71-[id number]) 3 ng/mL Adulterant Decision Limit: General Oxidants 200 ug/mL The adulterant assay tests for General Oxidants, including Chromates and Nitrites. Adulterants are substances either ingested or added directly to a urine specimen to prevent the detection of drug use. If applicable, any drug confirmation testing reported here was developed and the performance characteristics determined by [facility]. This confirmation testing has not been cleared or approved by the FDA. The laboratory is regulated under CLIA as qualified to perform high-complexity testing. This test is used for patient testing purposes. It should not be regarded as investigational or for research. Test performed at [facility], [address] , [place] [address] Lacie Cancino MD, PhD - Medical Screener Urine Urine specimen obtained by clean catch procedure / Unknown Non-blood Collection / Unknown 03/10/2025 10:23 AM EDT 03/10/2025 1:54 PM EDT us Rebecca Encinas MD LAB URINE ORDERABLES Final Resul t [facility] [address] [place] [address] * (ABNORMAL) Barbiturate, quantitative, urine (03/10/2025 10:23 AM EDT) Amobarbital Confirm, Urine Negative Negative ng/mL 03/14/2025 11:04 PM EDT [facility] Butabarbital Confirm, Urine Negative Negative ng/mL 03/14/2025 11:04 PM EDT [facility] Butalbital Confirm, Urine 108(H) Negative ng/mL 03/14/2025 11:04 PM EDT [facility] Pentobarbital Confirm, Urine Negative Negative ng/mL 03/14/2025 11:04 PM EDT [facility] Phenobarbital Confirm, Urine Negative Negative ng/mL 03/14/2025 11:04 PM EDT [facility] Secobarbital Confirm, Urine Negative Negative ng/mL 03/14/2025 11:04 PM EDT [facility] Creatinine 43 20 - 250 mg/dL 03/14/2025 11:04 PM EDT [facility] Adulterants Negative 03/14/2025 11:04 PM EDT [facility] Comment: Confirmation (GC/MS) Decision Limits Amobarbital [...] developed and the performance characteristics determined by [facility]. This confirmation testing has not been cleared or approved by the FDA. The laboratory is regulated under CLIA as qualified to perform high-complexity testing. This test is used for patient testing purposes. It should not be regarded as investigational or for research. Test performed at [facility], [address] , [place] [address] Lacie Cancino MD, PhD - Medical Screener Urine Urine specimen obtained by clean catch procedure / Unknown Non-blood Collection / Unknown 03/10/2025 10:23 AM EDT 03/10/2025 1:54 PM EDT us Rebecca Encinas MD LAB URINE ORDERABLES Final Resul t [facility] [address] [place], [place] [id number] * (ABNORMAL) Renal function panel (03/08/2025 10:22 AM EDT) Sodium 138 133 - 145 mmol/L LAB CHEMISTRY METHOD 03/08/2025 2:46 PM [facility] Potassium 5.5 3.5 - 5.5 mmol/L LAB CHEMISTRY METHOD 03/08/2025 2:46 PM [facility] Chloride 107 96 - 110 mmol/L LAB CHEMISTRY METHOD 03/08/2025 2:46 PM [facility] CO2 23 21 - 32 mmol/L LAB CHEMISTRY METHOD 03/08/2025 2:46 PM [facility] Anion Gap 8 3 - 11 LAB CHEMISTRY METHOD 03/08/2025 2:46 PM [facility] Glucose 258(H) 70 - 100 mg/dL LAB CHEMISTRY METHOD 03/08/2025 2:46 PM [facility] BUN 22 5 - 25 mg/dL LAB CHEMISTRY METHOD 03/08/2025 2:46 PM [facility] Creatinine 1.02 0.50 - 1.10 mg/dL LAB CHEMISTRY METHOD 03/08/2025 2:46 PM [facility] eGFR 77 >=60 mL/min/1. 73m2 LAB CHEMISTRY METHOD 03/08/2025 2:46 PM [facility] Comment:Calculation based on the Chronic Kidney Disease Epidemiology Collaboration (CKD-EPI) equation refit without adjustment for race. BUN/Creatinine Ratio 21.6 LAB CHEMISTRY METHOD 03/08/2025 2:46 PM [facility] Albumin 2.9(L) 3.2 - 5.0 g/dL LAB CHEMISTRY METHOD 03/08/2025 2:46 PM [facility] Calcium 9.1 8.5 - 10.5 mg/dL LAB CHEMISTRY METHOD 03/08/2025 2:46 PM [facility] Phosphorus 3.9 2.5 - 4.5 mg/dL LAB CHEMISTRY METHOD 03/08/2025 2:46 PM EDT [facility] Blood Venous blood specimen / Unknown Venipuncture / Unknown 03/08/2025 10:22 AM EDT 03/08/2025 10:23 AM EDT us Charity SCHWAB LAB BLOOD ORDERABLES Final Re sult [facility] [address] [place] [address], [place] [phone] * MR Abdomen wo and w Contrast [...] Signed Date: 03/05/2025 10:17 ET Workstation ID: [id number] Transcribed By: Self Edit Transcribed Date: 03/05/2025 [...] WADE Reviewed and Electronically Signed By: ONI WAED Signed Date: 03/05/2025 10:17 ET Workstation ID: [id number] Transcribed By: Self Edit Transcribed Date: 03/05/2025 09:27 ET Charity SCHWAB IMG MRI PROCEDURES Final Resu lt * External Diabetic Retina Eye Exam Report (02/21/2025) Anatomical Region Laterality Modality Ultrasound us Provider [facility] US PROCEDURES Final Result * (ABNORMAL) Lipid panel with reflex to direct LDL (02/01/2025 12:49 PM EDT) Cholesterol 207(H) 0 - 200 mg/dL LAB CHEMISTRY METHOD 02/01/2025 6:51 PM EDT [facility] Triglycerides 44 0 - 150 mg/dL LAB CHEMISTRY METHOD 02/01/2025 6:51 PM EDT [facility] HDL 100 >=40 mg/dL LAB CHEMISTRY METHOD 02/01/2025 6:51 PM EDT [facility] LDL Calculated 98 0 - 100 mg/dL LAB CHEMISTRY METHOD 02/01/2025 6:51 PM EDT [facility] Comment:Estimated LDL Calcul ated using equation: Total cholesterol - HDL cholesterol - (Triglycerides/5) VLDL Cholesterol Miles 8.8 mg/dL LAB CHEMISTRY METHOD 02/01/2025 6:51 PM EDT [facility] Non HDL Chol. (LDL+VLDL) 107 <145 mg/dL LAB CHEMISTRY METHOD 02/01/2025 6:51 PM EDT [facility] Chol/HDL Ratio 2.1 0.0 - 4.4 LAB CHEMISTRY METHOD 02/01/2025 6:51 PM EDT [facility] Blood Venous blood specimen / Unknown Venipuncture / Unknown 02/01/2025 12:49 PM EDT 02/01/2025 12:49 PM EDT us Rebecca Encinas MD LAB BLOOD ORDERABLES Final Resul t [facility] [address] [place] [address], * (ABNORMAL) Hemoglobin A1c (02/01/2025 12:49 PM EDT) Hemoglobin A1C 8.5(H) <6.5 % LAB CHEMISTRY METHOD 02/01/2025 10:19 PM EDT [facility] Mean Bld Glu Estim. 197 mg/dL LAB CHEMISTRY METHOD 02/01/2025 10:19 PM EDT [facility] Blood Venous blood specimen / Unknown Venipuncture / Unknown 02/01/2025 12:49 PM EDT 02/01/2025 12:49 PM EDT Rebecca Encinas MD LAB BLOOD ORDERABLES Final Resul t [facility] [address] [place] [address], [place] [phone] * Chlamydia trachomatis and Neisseria gonorrhoeae molecular study (07/27/2024 3:19 PM EST) Pathologist [facility] Neisseria gonorrhoeae PCR Negative Negative LAB MOLECULAR DIAGNOSTICS METHOD 07/28/2024 9:36 AM EST [facility] Chlamydia trachomatis PCR Negative Negative LAB MOLECULAR DIAGNOSTICS METHOD 07/28/2024 9:36 AM EST [facility] Swab Cervix uteri structure / Unknown Non-blood Collection / Unknown 07/27/2024 3:19 PM EST 07/27/2024 3:19 PM EST Marbella Pro MD LAB MICROBIOLOGY - GENERAL ORDERABLES Final Result Performing Organization Address City/[facility]/ZIP Co de Phone Number [facility] [address] [place] [address], [place] [phone] * HIV Screening (11/23/2020) HIV Screening abstracted Historical Provider HEALTH MAINTENANCE Final Result * Hepatitis C Screening (11/23/2020) Hepatitis C Screening abstracted Historical Rodrigue QUIROZ HEALTH MAINTENANCE Final Result * Pap smear (04/12/2020) 04/12/2020 Narrative HISTORICAL TESTING LAB RESULTING AGENCY - 04/14/2020 12:26 PM EST [id number] THINPREP PAP, IMAGED: NEGATIVE FOR SQUAMOUS INTRAEPITHELIAL [...] or Most Recently Relevant to Health Maintenance Additional Health Concerns Active Problems Noted Date Diagnosed Date Autogenerated Problem 05/16/2025 Insurance [facility] [employer] [facility] Care Teams 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
[2025-05-25 15:33] LABS: Anion Gap 13 (12-20); Blood Urea Nitrogen 39 mg/dL (9-16); Carbon Dioxide 28 mmol/L (22-29); Chloride 102 mmol/L (96-108); Estimated Glomerular Filt Rate 54; Potassium 4.4 mmol/L (3.3-5.1); Sodium 139 mmol/L (135-145)
== END 2025-05-25 14:24 | disposition home or self-care (01) ==
LOC: HO.LAB 14:23
PROVIDERS: PCP Internal Medicine; Visit Provider Internal Medicine Nephrology
DX: I10 Essential (primary) hypertension (principal); E10.21 Type 1 diabetes mellitus with diabetic nephropathy
CPT/HCPCS: 36415; 80051; 82565; 84520

== ENCOUNTER 2025-05-27 11:31 | Outpatient (AMB) | payer OTHER, SELFPAY ==
--- OUTSIDE RECORDS SUMMARY | 2025-05-27 11:33 | XMS_ITS | Encounter Summary ---
Author Organization [facility] Address [address] [place] [address] Care Team Providers Care Flow Match Sofa Cutter Name Role Phone Rebecca Encinas MD Primary Care Provider [phone] Encounter Details Date Type Department Care Team ([facility] Contact Info) Description 05/22/2025 Results Follow-Up Gastroenterology - [address] [phone] Charity Wall PA [address] [address] Social History Tobacco Use Types Packs/Day Years [...] 2:00 PM EST Office Visit Adult Medicine [facility] [address] [place], [place] [phone] Rebecca Encinas MD [address] [place] [address] 10/12/2025 8:15 AM EDT Office Visit Orthopedic Surgery - [place] [id number] [phone] Wei Sheppard, DPM [address] [phone] documented as of this encounter [...] documented as of this encounter Care Teams Flow Match Sofa Cutter Relationship Specialty Start Date End Date Rebecca Encinas MD [address] [place] [address] PCP - General Internal Medicine 09/10/24 documented as of this encounter
--- OUTSIDE RECORDS SUMMARY | 2025-05-27 11:34 | XMS_ITS | Clinical Summary ---
Author Organization [facility] Address [address] [place] [address] Phone Care Team Providers Care Ivory Carver Name Role Phone Rebecca Encinas MD Primary Care Provider [phone] Allergies Active Allergy Reactions Criticality Noted Date [...] Results Follow-Up Gastroenterology - [address] 299 [facility] [address] [place] [phone] Charity Wall PA 05/20/2025 1:16 PM EST Anesthesia Event [facility] Endoscopy [address] [place] [phone] Dusty Charles MD 05/20/2025 12:36 PM EST - 05/20/2025 11:59 PM EST Hospital Encounter [facility] Endoscopy [address] [place] [phone] Wong Ashford MD Chang, Daniel J, MD Couture, Alison, CRNA Nausea and vomiting, unspecified vomiting type; Epigastric abdominal pain; Gastroesophageal reflux disease, unspecified whether esophagitis present Discharge Disposition: Home or Self Care 05/16/2025 8:50 AM EST Office Visit Gastroenterology - 299 [facility] 299 [facility] [address] [place] [phone] Charity Wall PA Nausea and vomiting, unspecified vomiting type (Primary Dx); Epigastric abdominal pain; Gastroesophageal reflux disease, unspecified whether esophagitis present; Hepatic adenoma; High platelet count 05/10/2025 9:00 AM EST Office Visit [facility] Hematology Oncology [address] [place] [phone] Tess Sams PA Thrombophilia ([facility] V24) (Primary Dx) 04/14/2025 2:30 PM EST Office Visit Orthopedic Surgery - [place] [address] [facility] [address] [place] [phone] Wei Sheppard, DPM Dermatophytosis of nail (Primary Dx); Type 1 diabetes mellitus with mononeuropathy ([facility] V24, [facility] V28) 04/05/2025 10:00 AM EST Lab Draw Station - [facility] [address] [phone] Elevated platelet count; Thrombocytosis; Leukocytosis, unspecified type; Iron deficiency anemia, unspecified iron deficiency anemia type 04/05/2025 9:30 AM EST Office Visit [facility] Hematology Oncology [address] [place] [phone] Tess Sams PA Elevated platelet count (Primary Dx) 03/22/2025 1:00 PM EDT Office Visit [facility] Hematology Oncology [address] [place] [phone] Tess Sams PA Elevated platelet count (Primary Dx) 03/17/2025 8:22 AM EDT - 03/17/2025 11:59 PM EDT Hospital Encounter [facility] Nuclear Medicine [address] [place] [phone] Nausea and vomiting, unspecified vomiting type; Gastroesophageal reflux disease, unspecified whether esophagitis present; LLQ abdominal pain Discharge Disposition: Home or Self Care 03/12/2025 [facility] [address] [phone] Charity Wall PA 03/10/2025 2:13 PM EDT - 03/10/2025 11:59 PM EDT Hospital Encounter [facility] CT Scan [address] [place] [phone] Nausea and vomiting, unspecified vomiting type; Gastroesophageal reflux disease, unspecified whether esophagitis present; LLQ abdominal pain Discharge Disposition: Home or Self Care 03/10/2025 9:00 AM EDT Office Visit Adult Medicine [address] [phone] Rebecca Encinas MD Hospital discharge follow-up (Primary Dx); 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, macular edema presence unspecified, unspecified retinopathy severity (CMS/HCC V24, CMS/HCC V28); Primary hypertension; Chronic diastolic heart failure (CMS/HCC V24, CMS/HCC V28); Generalized anxiety disorder 03/08/2025 8:50 AM EDT Office Visit Gastroenterology [address] [phone] Charity Wall PA Nausea and vomiting, unspecified vomiting type (Primary Dx); Gastroesophageal reflux disease, unspecified whether esophagitis present; LLQ abdominal pain; High platelet count 03/07/2025 Results Follow-Up Gastroenterology [facility] [address] [phone] Charity Wall PA 03/07/2025 Telephone Gastroenterology [facility] [address] [phone] Charity Wall PA 02/28/2025 Telephone Adult Medicine [address] [phone] Rebecca Encinas MD from Last 3 Months Immunizations Immunization Administration Dates Next Due DTaP (Infanrix) 6wks to less than 7yo ,09/03/1999,05/04/1998,1997,1997 [id number] (Pentacel) 2mo to less than 5yo 09/03/1999,05/04/1998,03/01/1998,1997 [...] ENDOSCOPY 2007 PROCEDURE: UPPER GI ENDOSCOPY/EXAM; COMMENT: [facility] Medical History Medical History Date Comments Type 1 diabetes mellitus (CM S/HCC V24, CMS/HCC V28) DX:Type 1 diabetes mellitus (HCC); COMMENT: [facility] Endocrinology. Dr. Griffin. Dx age 8 Mild intermittent asthma DX:Mild intermittent asthma Obesity DX:Obesity Headache DX:Headache Depression with anxiety DX:Depre ssion with anxiety Tobacco use disorder DX:Tobacco use disorder Endometriosis Hypertension Hyperlipidemia CHF (congestive heart failur e) ([facility] V24, [facility] V28) Family History Medical History Relation Name [...] 2:00 PM EST Office Visit Adult Medicine [facility] [address] [place], [place] [phone] Rebecca Encinas MD [address] [place], [place] 10/12/2025 8:15 AM EDT Office Visit Orthopedic Surgery - [place] [address] [phone] Wei Sheppard, DPDeshaun [address] [phone] Health Maintenance Due Date Last [...] unspecified whether esophagitis present LLQ abdominal pain EXTERNAL DIABETIC RETINA EYE EXAM 02/21/2025 HEMOGLOBIN [...] Maintenance Results * EGD Anesthesia - MAC; SP ENDOSCOPY (05/20/2025 1:26 PM EST) Anatomical Region [...] previously scheduled. Narrative 05/20/2025 1:27 PM EST [facility] GI Patient Name: Wendy Martinez Procedure Date: [...] was normal. Procedure Code(s): --- Professional --- 06788, Esophagogastroduodenoscopy, flexible, transoral; with biopsy, single or multiple Diagnosis Code(s): --- Professional --- R10.13, Epigastric pain R11.2, Nausea with vomiting, unspecified CPT copyright 2020 [employer]. All rights reserved. The codes documented in this report are preliminary and upon animal science instructor review may be revised to meet current compliance requirements. Wong Ashford MD 05/20/2025 1:27:23 PM This report has been signed electronically.Wong Ashford MD Number of Addenda: 0 Note Initiated On: 05/20/2025 1:08 PM Scope In: Scope Out: Endoscopy Department at [facility] - [address] [place] [phone] Procedure Note Wong Ashford MD - 05/20/2025 [facility] GI Patient Name: Wendy Martinez Procedure Date: [...] was normal. Procedure Code(s): --- Professional --- 95903, Esophagogastroduodenoscopy, flexible, transoral; with biopsy, single or multiple Diagnosis Code(s): --- Professional --- R10.13, Epigastric pain R11.2, Nausea with vomiting, unspecified CPT copyright 2020 [employer]. All rights reserved. The codes documented in this report are preliminary and upon animal science instructor reviewmay be revised to meet current compliance requirements. Wong Ashford MD 05/20/2025 1:27:23 PM This report has been signed electronically.Wong Ashford MD Number of Addenda: 0 Note Initiated On: 05/20/2025 1:08 PM Scope In: Scope Out: Endoscopy Department at [facility] - [address] [place] [phone] IMPRESSION: - Z-line regular, 35 cm from [...] Helicobacter type gastritis identified. 05/23/2025 2:11 PM [facility] at 1411 EST Gross Description A. Gastric, Antrum, biopsies antrum: Labeled biopsies gastric ant . Received in formalin are four soft, vincent-pink to red tissue fragments measuring approximately 0.25 cm in greatest diameter, which are wrapped in paper and submitted in toto in one cassette, four pieces, multiple levels. TS 05/23/2025 2:11 PM [facility] Disclaimer Unless otherwise specified, all tissue is 10% NB formalin fixed and paraffin embedded. 05/23/2025 2:11 PM [facility] Tissue Pyloric antrum structure / Unknown 05/20/2025 1:23 PM EST 05/20/2025 3:03 PM EST Wong Ashford MD LAB PATHOLOGY ORDERABLES Gail l Result [facility] [address] [place] [address], [place] [phone] * External clinical lab (05/05/2025) Only the most recent of2 resultswithin the time period is included. us Provider [facility] LAB BLOOD ORDERABLES Fin al Result * MPL mutation analysis (04/05/2025 9:59 AM EST) Clinical Indication na 04/13 1:39 AM EST [facility] Specimen Source: blood 04/13/20 25 1:39 AM EST [facility] Block/Specimen ID: [...] hematologic features, includes BCR-ABL1 rearrangement (test code 33737 or 66815B) or mutational analysis of JAK2 V617F (polycythemia vera (PV)/ET/PMF, 11444), CALR (ET/PMF, 86856), JAK2 exon 12 (PV, 66233) or CSF3R (chronic neutrophilic leukemia, 91737). Residual material from this sample may be used except for BCR-ABL1 testing; call lab to add. DNA was aligned to GRCh37(hg19) for analysis and transcript ID [id number] was used as reference for MPL sequence. For additional information, please refer to http://education.[employer].American Giant/faq/YTW581 (This link is being provided for informational/educational purposes only.) This test was developed and its analytical performance characteristics have been determined by [facility]. It has not been cleared or approved by FDA. This assay has been validated pursuant to the CLIA regulations and is used for clinical purposes. Test Performed at: [facility] [address] [place] [address] Rick Cade MD, PhD, SP Blood Venous blood specimen / Unknown Venipuncture / Unknown 04/05/2025 9:59 AM EST 04/05/2025 11:30 AM EST us Tess SCHWAB LAB MOLECULAR DIAGNOSTICS ORD ERABLES Final Result [facility] [address] [place] [address] * Calreticulin mutation analysis (04/05/2025 9:59 AM [...] hematologic features, includes BCR-ABL1 rearrangement (test code 28389 or 57171R) or mutational analysis of JAK2 V617F (polycythemia vera (PV)/ET/PMF, 96806), JAK2 exon 12 (PV, 78260), MPL (ET/PMF, 64433) or CSF3R (chronic neutrophilic leukemia, 86815). Residual material from this sample may be used except for BCR-ABL1 testing; call lab to add. DNA was aligned to GRCh37(hg19) for analysis and transcript ID [id number] was used as reference for CALR sequence. For additional information, please refer to http://education.Seanodes/faq/ITD191 (This link is being provided for informational/educational purposes only.) This test was developed and its analytical performance characteristics have been determined by [facility]. It has not been cleared or approved by FDA. This assay has been validated pursuant to the CLIA regulations and is used for clinical purposes. Test Performed at: [facility] [address] [address] Rick Cade MD, PhD, SP Blood Venous blood specimen / Unknown Venipuncture / Unknown 04/05/2025 9:59 AM EST 04/05/2025 11:30 AM EST Tess SCHWAB LAB MOLECULAR DIAGNOSTICS ORD ERABLES Final Result [facility] [address] [place] [address] * (ABNORMAL) CBC auto differential (04/05/2025 9:59 AM EST) Only the most recent of2 resultswithin the time period is included. WBC 9.1 4.8 - 10.8 K/[facility] LAB HEMETOLOGY METHOD 04/05/2025 1:06 PM EST [facility] RBC 4.20 3.80 - 4.80 M/[facility] LAB HEMETOLOGY METHOD 04/05/2025 1:06 PM [facility] Hemoglobin 12.0 11.5 - 16.0 g/dL LAB HEMETOLOGY METHOD 04/05/2025 1:06 PM [facility] Hematocrit 36.8 35.0 - 47.0 % LAB HEMETOLOGY METHOD 04/05/2025 1:06 PM [facility] MCV 86.8 79.0 - 98.0 FL LAB HEMETOLOGY METHOD 04/05/2025 1:06 PM [facility] MCH 28.3 27.0 - 32.0 pcg LAB HEMETOLOGY METHOD 04/05/2025 1:06 PM [facility] MCHC 32.6 32.0 - 37.0 g/dL LAB HEMETOLOGY METHOD 04/05/2025 1:06 PM [facility] RDW 12.4 11.0 - 15.0 % LAB HEMETOLOGY METHOD 04/05/2025 1:06 PM [facility] Platelets 423(H) 130 - 400 K/mcL LAB HEMETOLOGY METHOD 04/05/2025 1:06 PM [facility] MPV 9.2 7.0 - 11.0 FL LAB HEMETOLOGY METHOD 04/05/2025 1:06 PM [facility] NRBC 0.0 <1.0 % LAB HEMETOLOGY METHOD 04/05/2025 1:06 PM [facility] NRBC Absolute 0.00 <0.10 K/mcL LAB HEMETOLOGY METHOD 04/05/2025 1:06 PM [facility] Neutrophils Relative 65.6 % LAB HEMETOLOGY METHOD 04/05/2025 1:06 PM [facility] Lymphocytes Relative 27.9 % LAB HEMETOLOGY METHOD 04/05/2025 1:06 PM [facility] Monocytes Relative 4.4 % LAB HEMETOLOGY METHOD 04/05/2025 1:06 PM [facility] Eosinophils Relative 1.2 % LAB HEMETOLOGY METHOD 04/05/2025 1:06 PM [facility] Basophils Relative 0.7 % LAB HEMETOLOGY METHOD 04/05/2025 1:06 PM [facility] Immature Granulocytes Relative 0.2 % LAB HEMETOLOGY METHOD 04/05/2025 1:06 PM [facility] Neutrophils Absolute 5.99 1.50 - 7.00 K/mcL LAB HEMETOLOGY METHOD 04/05/2025 1:06 PM [facility] Lymphocytes Absolute 2.54 1.00 - 5.00 K/mcL LAB HEMETOLOGY METHOD 04/05/2025 1:06 PM [facility] Monocytes Absolute 0.40 0.20 - 1.00 K/mcL LAB HEMETOLOGY METHOD 04/05/2025 1:06 PM [facility] Eosinophils Absolute 0.11 0.00 - 0.50 K/mcL LAB HEMETOLOGY METHOD 04/05/2025 1:06 PM [facility] Basophils Absolute 0.06 0.00 - 0.20 K/mcL LAB HEMETOLOGY METHOD 04/05/2025 1:06 PM [facility] Immature Granulocytes Absolute 0.02 0.00 - 0.03 K/mcL LAB HEMETOLOGY METHOD 04/05/2025 1:06 PM [facility] Blood Venous blood specimen / Unknown Venipuncture / Unknown 04/05/2025 9:59 AM EST 04/05/2025 11:31 AM EST us Tess SCHWAB LAB BLOOD ORDERABLES Final Re sult [facility] [address] [place] [address], * Erythropoietin (04/05/2025 9:59 AM EST) [facility] Erythropoietin 14.2 2.6 - 18.5 mIU/mL 04/07/2025 7:43 PM EST [facility] Comment: Test performed at [facility], [address] , [place] [address] Lacie Cancino MD, PhD - Sales Representative [employer] Blood Venous blood specimen / Unknown Venipuncture / Unknown 04/05/2025 9:59 AM EST 04/05/2025 11:31 AM EST Tess SCHWAB LAB BLOOD ORDERABLES Final Re sult [facility] [address] [place] [address] * Lactate dehydrogenase (04/05/2025 9:59 AM EST) [facility] LDH 190 120 - 246 unit/L LAB CHEMISTRY METHOD 04/05/2025 12:53 PM EST [facility] Blood Venous blood specimen / Unknown Venipuncture / Unknown 04/05/2025 9:59 AM EST 04/05/2025 11:31 AM EST Tess SCHWAB LAB BLOOD ORDERABLES Final Re sult [facility] [address] [place] [address], [place] [phone] * JAK2 gene, V617F mutation, quantitative, molecular study (03/22/2025 2:18 PM EDT) [facility] JAK2 (V617F) Mutation Not detected Not detected 03/25/2025 11:44 AM EDT [facility] WBC Percent with V617F Mutation <0.1 <0.1 % 03/25/2025 11:44 AM EDT [facility] Comment: This procedure uses real-time polymerase [...] characteristics of this procedure were determined by [facility]. This test is performed pursuant to a license agreement with [employer] Test performed at [facility], [address] , [place] [address] Lacie Cancino MD, PhD - Sales Representative [employer] Blood Venous blood specimen / Unknown Venipuncture / Unknown 03/22/2025 2:18 PM EDT 03/22/2025 4:39 PM EDT Tess SCHWAB LAB MOLECULAR DIAGNOSTICS ORD ERABLES Final Result Performing Organization Address City/[facility]/ZIP Co de Phone Number [facility] [address] [place] [address] * Iron and TIBC (03/22/2025 2:18 PM EDT) Pathologist [facility] Iron 72 40 - 150 mcg/dL LAB CHEMISTRY METHOD 03/22/2025 5:14 PM EDT [facility] TIBC 257 250 - 450 mcg/dL LAB CHEMISTRY METHOD 03/22/2025 5:14 PM EDT [facility] Iron Saturation 28 15 - 50 % LAB CHEMISTRY METHOD 03/22/2025 5:14 PM EDT [facility] Blood Venous blood specimen / Unknown Venipuncture / Unknown 03/22/2025 2:18 PM EDT 03/22/2025 5:13 PM EDT Tess SCHWAB LAB BLOOD ORDERABLES Final Re sult [facility] [address] [place] [address], [place] [phone] * Ferritin (03/22/2025 2:18 PM EDT) Ferritin 46 8 - 252 ng/mL LAB CHEMISTRY METHOD 03/22/2025 5:13 PM EDT [facility] Blood Venous blood specimen / Unknown Venipuncture / Unknown 03/22/2025 2:18 PM EDT 03/22/2025 5:13 PM EDT Tess SCHWAB LAB BLOOD ORDERABLES Final Re sult [facility] [address] [place] [address], [place] [phone] * NM Gastric Emptying Study (03/17/2025 2:16 PM EDT) Anatomical Region Laterality Modality Body Nuclear Medicine 03/17/2025 3:15 PM EDT Impressions 03/17/2025 3:16 PM EDT Normal gastric emptying. -------- FINAL REPORT -------- Dictated By: Nena Cormier Dictated Date: 03/17/2025 15:15 ET Assigned Physician: Nena Cormier Reviewed and Electronically Signed By: Nena Cormier Signed Date: 03/17/2025 15:16 ET Workstation ID: [id number] Transcribed By: Self Edit Transcribed Date: 03/17/2025 [...] Signed Date: 03/17/2025 15:16 ET Workstation ID: [id number] Transcribed By: Self Edit Transcribed Date: 03/17/2025 15:15 ET us Charity [facility] PROCEDURES Final Resul t * CT Abdomen [...] CT abdomen and pelvis with contrast Comparison: MR/KO/NJ/SR - MR ABD WO AND W CONTRAST - 02/23/25 10:[address]/KO/NJ - CT ABDOMEN OUTSIDE EXAMINATION - 08/09/24 [...] CT abdomen and pelvis with contrast Comparison: MR/KO/NJ/SR - MR ABD WO AND W CONTRAST - 02/23/25 10:[address]/KO/NJ - CT ABDOMEN OUTSIDE EXAMINATION - 08/09/24 [...] Pickett MD on 03/10/2025 17:47:11 Charity SCHWAB [facility] PROCEDURES Final Resul t * (ABNORMAL) Drug abuse screen expanded with reflex confirmation, urine (03/10/2025 10:23 AM EDT) [facility] Amphetamine Screen, Ur Negative Negative LAB CHEMISTRY METHOD 1:54 PM EDT [facility] Comment:Certain OTC medicati ons containing ephedrine, phenylephrine, pseudoephedrine and phenylpropanolamine can cause false positive results. Barbiturate Screen, Ur Positive(A ) Negative LAB CHEMISTRY METHOD 5 1:54 PM EDT [facility] Benzodiazepine Screen, Ur Negative Negative LAB CHEMISTRY METHOD 1:54 PM EDT [facility] Cocaine Screen, Ur Negative Negative LAB CHEMISTRY METHOD 1:54 PM EDT [facility] Opiate Screen, Ur Negative Negative LAB CHEMISTRY METHOD 1:54 PM EDT [facility] Cannabinoid (THC) Screen, Ur Positive(A ) Negative LAB CHEMISTRY METHOD 1:54 PM EDT [facility] Comment:Specimens from patie nts taking pantoprazole sodium (Protonix) have been shown to produce false positive results. Fentanyl, Ur Negative Negative LAB CHEMISTRY METHOD 1:54 PM EDT [facility] Oxycodone Screen, Ur Negative Negative LAB CHEMISTRY METHOD 5 1:[address] [facility] Urine Urine specimen obtained by clean catch procedure / Unknown Non-blood Collection / Unknown 03/10/2025 10:23 AM EDT 03/10/2025 10:23 AM EDT Narrative [facility] - 03/10/2025 1:54 PM EDT [...] MD LAB URINE ORDERABLES Final Resul t [facility] [address] [place] [address], [place] [phone] * (ABNORMAL) Microalbumin creatinine urine ratio (03/10/2025 10:23 AM EDT) Creatinine, Urine 44.0 mg/dL LAB CHEMISTRY METHOD 03/10/2025 1:57 PM EDT [facility] Microalb, Ur 2,260.0(H ) 0.0 - 29.0 mg/L LAB CHEMISTRY METHOD 03/10/2025 1:57 PM EDT [facility] Microalb/Crea t Ratio 5,136(H) <30 mg/g creat LAB CHEMISTRY METHOD 03/10/2025 1:57 PM EDT [facility] Urine Urine specimen obtained by clean catch procedure / Unknown Non-blood Collection / Unknown 03/10/2025 10:23 AM EDT 03/10/2025 10:23 AM EDT us Rebecca Encinas MD LAB URINE ORDERABLES Final Resul t [facility] [address] [place] [address], [place] [phone] * (ABNORMAL) THC, urine, confirmation (03/10/2025 10:23 [...] or more. Confirmation (GC/MS) Decision Limit THC (74-tma-5-xbrhrew-3-ddavomarjzavsbrxlnvr) 3 ng/mL Adulterant Decision Limit: General Oxidants 200 ug/mL The adulterant assay tests for General Oxidants, including Chromates and Nitrites. Adulterants are substances either ingested or added directly to a urine specimen to prevent the detection of drug use. If applicable, any drug confirmation testing reported here was developed and the performance characteristics determined by [facility]. This confirmation testing has not been cleared or approved by the FDA. The laboratory is regulated under CLIA as qualified to perform high-complexity testing. This test is used for patient testing purposes. It should not be regarded as investigational or for research. Test performed at [facility], [address], [place] [address] Lacie Cancino MD, PhD - Sales Representative [employer] Urine Urine specimen obtained by clean catch procedure / Unknown Non-blood Collection / Unknown 03/10/2025 10:23 AM EDT 03/10/2025 1:54 PM EDT us Rebecca Encinas MD LAB URINE ORDERABLES Final Resul t [facility] [address] [place] [address] * (ABNORMAL) Barbiturate, quantitative, urine (03/10/2025 10:23 AM EDT) Amobarbital Confirm, Urine Negative Negative ng/mL 03/14/2025 11:04 PM EDT [facility] Butabarbital Confirm, Urine Negative Negative ng/mL 03/14/2025 11:04 PM EDT [facility] Butalbital Confirm, Urine 108(H) Negative ng/mL 03/14/2025 11:04 PM EDT [facility] Pentobarbital Confirm, Urine Negative Negative ng/mL 03/14/2025 11:04 PM EDT [facility] Phenobarbital Confirm, Urine Negative Negative ng/mL 03/14/2025 11:04 PM EDT [facility] Secobarbital Confirm, Urine Negative Negative ng/mL 03/14/2025 11:04 PM EDT [facility] Creatinine 43 20 - 250 mg/dL 03/14/2025 11:04 PM EDT [facility] Adulterants Negative 03/14/2025 11:04 PM EDT [facility] Comment: Confirmation (GC/MS) Decision [...] developed and the performance characteristics determined by [facility]. This confirmation testing has not been cleared or approved by the FDA. The laboratory is regulated under CLIA as qualified to perform high-complexity testing. This test is used for patient testing purposes. It should not be regarded as investigational or for research. Test performed at [facility], [address] , [place] [address] Lacie Cancino MD, PhD - Sales Representative [employer] Urine Urine specimen obtained by clean catch procedure / Unknown Non-blood Collection / Unknown 03/10/2025 10:23 AM EDT 03/10/2025 1:54 PM EDT us Rebecca Encinas MD LAB URINE ORDERABLES Final Resul t [facility] [address] [place] [address] * (ABNORMAL) Renal function panel (03/08/2025 10:22 AM EDT) Sodium 138 133 - 145 mmol/L LAB CHEMISTRY METHOD 03/08/2025 2:46 PM EDT [facility] Potassium 5.5 3.5 - 5.5 mmol/L LAB CHEMISTRY METHOD 03/08/2025 2:46 PM EDT [facility] Chloride 107 96 - 110 mmol/L LAB CHEMISTRY METHOD 03/08/2025 2:46 PM EDT [facility] CO2 23 21 - 32 mmol/L LAB CHEMISTRY METHOD 03/08/2025 2:[address] [facility] Anion Gap 8 3 - 11 LAB CHEMISTRY METHOD 03/08/2025 2:[address] [facility] Glucose 258(H) 70 - 100 mg/dL LAB CHEMISTRY METHOD 03/08/2025 2:[address] [facility] BUN 22 5 - 25 mg/dL LAB CHEMISTRY METHOD 03/08/2025 2:[address] [facility] Creatinine 1.02 0.50 - 1.10 mg/dL LAB CHEMISTRY METHOD 03/08/2025 2:[address] [facility] eGFR 77 >=60 mL/min/1. 73m2 LAB CHEMISTRY METHOD 03/08/2025 2:[address] [facility] Comment:Calculation based on the Chronic Kidney Disease Epidemiology Collaboration (CKD-EPI) equation refit without adjustment for race. BUN/Creatinine Ratio 21.6 LAB CHEMISTRY METHOD 03/08/2025 2:[address] [facility] Albumin 2.9(L) 3.2 - 5.0 g/dL LAB CHEMISTRY METHOD 03/08/2025 2:[address] [facility] Calcium 9.1 8.5 - 10.5 mg/dL LAB CHEMISTRY METHOD 03/08/2025 2:[address] [facility] Phosphorus 3.9 2.5 - 4.5 mg/dL LAB CHEMISTRY METHOD 03/08/2025 2:[address] [facility] Blood Venous blood specimen / Unknown Venipuncture / Unknown 03/08/2025 10:22 AM EDT 03/08/2025 10:23 AM EDT us Charity SCHWAB LAB BLOOD ORDERABLES Final Re sult [facility] [address] [place] [address], [place] [phone] * External Diabetic Retina Eye Exam Report [...] mg/dL LAB CHEMISTRY METHOD 02/01/2025 6:[address] [facility] LDL Calculated 98 [...] mg/dL LAB CHEMISTRY METHOD 02/01/2025 6:[address] [facility] Chol/HDL Ratio 2.1 0.0 - 4.4 LAB CHEMISTRY METHOD 02/01/2025 6:51 PM T [facility] Blood Venous blood specimen / Unknown Venipuncture / Unknown 02/01/2025 12:49 PM EDT 02/01/2025 12:49 PM EDT Rebecca Encinas MD LAB BLOOD ORDERABLES Final Resul t [facility] [address] [place] [address], [place] [phone] * (ABNORMAL) Hemoglobin A1c (02/01/2025 12:49 PM EDT) [facility] Hemoglobin A1C 8.5(H) <6.5 % LAB CHEMISTRY [...] Resul t [facility] [address] [place] [address], [place] [phone] * Chlamydia trachomatis and Neisseria gonorrhoeae molecular study (07/27/2024 3:19 PM EST) [facility] Neisseria gonorrhoeae PCR Negative Negative LAB MOLECULAR [...] Final Result [facility] [address] [place] [address], [place] [phone] * HIV Screening (11/23/2020) [facility] HIV Screening abstracted Kevin Husain MD HEALTH MAINTENANCE Final Result * Hepatitis C Screening (11/23/2020) Hepatitis C Screening abstracted us Historical Provider HEALTH MAINTENANCE Final Result * Pap smear (04/12/2020) 04/12/2020 Narrative HISTORICAL TESTING LAB RESULTING AGENCY - 04/14/2020 12:26 PM EST [id number] THINPREP PAP, IMAGED: NEGATIVE FOR SQUAMOUS INTRAEPITHELIAL [...] Date Diagnosed Date Autogenerated Problem 05/16/[address] [address] [employer] Care Teams Ivory Carver Relationship Specialty Start Date End Date Rebecca Encinas MD [address] [place] [address] PCP - General Internal Medicine 09/10/24
--- NOTE | 2025-05-27 11:45 | HO.NEPHOV_ITS ---
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 She has H/O cocaine, alcohol and marijuana use. She feels improved but is concerned about her proteinuria, weight gain and edema. Her BP is better controlled now. Her edema responded initially to increase in diuretics but not improving further. She is not very strict with low sodium diet. She was accompanied by her mother during this office visit [facility] Medical History Chest pain Type 1 diabetes Hypertension 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 Cocaine use Surgical History No pertinent past surgical history Family History Father Hypertension Mother Hypertension Diabetes Social History Household Members: Family Housing: House Do you presently have visiting nurse or other home services: No Alcohol intake: current Alcohol intake frequency: holidays/special occasions only Patient Tobacco Use Status: Never used Tobacco Substance Use Type: Marijuana service: No Review of Systems Const All systems reviewed & are unremarkable except as noted in HPI and below Physical Exam Vital Signs: Last Vital Signs Pulse 91 05/27/25 11:46 BP 144/92 H 05/27/25 11:46 Pulse Ox 97 05/27/25 11:46 Oxygen Delivery Method Room Air 05/27/25 11:46 BMI result Body Mass Index 40.2 Const General: comfortable and no acute distress Orientation/consciousness: patient oriented x3 HEENT Head: Yes normocephalic Mouth: Normal oral and palatal mucosa present Eyes EOM: EOMs intact bilaterally Neck Neck: Yes supple Resp Auscultation: clear to auscultation bilaterally Cardio Jugular venous distension: no JVD Rate: regular rate Heart sounds: Murmur heart sound present GI Palpation (GI): Soft to palpation Auscultation: normal bowel sounds General: Yes no CVA tenderness Back/Spine/Pelvis Back: no CVA tenderness Skin General skin exam: no rashes or lesions noted Neuro General: patient oriented x3 and moves all extremities Extrem General: Yes edema Results Reviewed Nephrology Results: Sodium, (135-145) 139 mmol/L 05/25/25 Potassium, (3.3-5.1) 4.4 mmol/L 25 Chloride, (96-108) 102 mmol/L 05/25/25 Carbon Dioxide, (22-29) 28 mmol/L 05/25/25 BUN, (9-16) 39 mg/dL H 05/25/25 Creatinine, (0.5-1.4) 1.20 mg/dL 05/25/25 Calcium, (8.4-10.2) 8.4 mg/dL Δ 05/02/25 Assessment & Plan Assessment & Plan (1) Edema: Code(s): R60.9 - Edema, unspecified Category: Medical Qualifiers: Edema type: localized Qualified Code(s): R60.0 - Localized edema (2) Diabetic nephropathy: Code(s): E11.21 - Type 2 diabetes mellitus with diabetic nephropathy Category: Medical Qualifiers: Diabetes mellitus type: type 1 Qualified Code(s): E10.21 - Type 1 diabetes mellitus with diabetic nephropathy Plan Type 1 DM with diabetic nephropathy Has Diastolic dysfunction by ECHO Has significant proteinuria & retinopathy Renal function normal; Needs to abstain from cocaine( already has) D/Miko lasix 80 mg bid; Started torsemide 60 mg bid C/W hydralazine 50 mg bid & Isosorbide 90 mg daily Metalozone 5 mg twice a week for 3 weeks If more medications are needed for BP control, will add Diltiazem) ( Diltiazem also has anti proteinuric effect) Shall follow up in office in 4 weeks; Answered all questions Orders: Orders Electrolytes 2 Weeks E10.21 - Type 1 diabetes mellitus with diabetic nep hropathy, R60.0 - Localized edema Blood Urea Nitrogen 2 Weeks E10.21 - Type 1 diabetes mellitus with diabetic nephropathy, R60.0 - Localized edema Creatinine 2 Weeks E10.21 - Type 1 diabetes mellitus with diabetic nephropathy, R60.0 - Localized edema Medications: New torsemide 60 mg (3 x 20 mg) PO BID 180 tabs 3RF 1 month metolazone 5 mg orally take twice a week for 3 weeks; 6 tabs 0RF Discontinued furosemide Discontinued Reason: Doctor's Order 80 mg (2 x 40 mg) PO BID 30 days 120 tabs 5RF edema Coding Level of Care Code Est Pt Level 4 (14322) Diagnoses Localized edema R60.0 Edema type: localized 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
[2025-05-27 11:46] VITALS: BP 144/92; PULSE 91; O2SAT 97; BMI 40.2
== END 2025-05-27 12:12 | disposition home or self-care (01) ==
LOC: HO.HKA 11:32
PROVIDERS: PCP Internal Medicine; Visit Provider Internal Medicine Nephrology
DX: R60.0 Localized edema (principal); E10.21 Type 1 diabetes mellitus with diabetic nephropathy
CPT/HCPCS: 99214

== ENCOUNTER → 2025-05-27 11:31 | Outpatient (BNVA) | payer OTHER, SELFPAY | PROVIDERS: PCP Internal Medicine; Visit Provider Internal Medicine Nephrology | DX: E10.21 Type 1 diabetes mellitus with diabetic nephropathy (principal); R60.0 Localized edema; I11.0 Hypertensive heart disease with heart failure; I50.30 Unspecified diastolic (congestive) heart failure; E10.319 Type 1 diabetes mellitus with unspecified diabetic retinopathy without macular edema; R80.9 Proteinuria, unspecified; Z79.899 Other long term (current) drug therapy | CPT/HCPCS: 99212 ==